=== PATIENT | female | born 1970 | race Caucasian/White ===

== ENCOUNTER 2017-12-08 13:51 | Day surgery (SDC) | payer MEDICAID, SELFPAY ==
[2017-12-08 14:06] VITALS: BP 143/78; PULSE 79; RESP 17; TEMP 36.6; O2SAT 96; BMI 31.3
[2017-12-08 15:23] VITALS: BP 160/91; PULSE 91; RESP 20; O2SAT 99
[2017-12-08 15:27] VITALS: BP 146/96; PULSE 79; RESP 20; O2SAT 95
--- NOTE | 2017-12-08 15:33 | HMH.PMPROC ---
- Procedure Date: 12/08/17 Time: 15:33 Anesthesiologist:: Robert Boyce MD Complications:: None Pre-procedure Diagnosis:: Degenerative disc disease of lumbar spine lumbar radiculopathy symptoms. Degenerative disc disease of cervical spine with cervical postlaminectomy syndrome and cervical radiculopathy symptoms. Post-procedure Diagnosis:: Same Indications for Procedure:: This patient is a pleasant 46-year-old white female who we have been treating for neck pain and low back pain with radiculopathy symptoms. She currently is an intrathecal hydromorphone pain pump currently going at 0.15 mg per day. Her low back is doing very well. She is still having some neck pain with cervical radicular symptoms. We have talked to her about possible spinal cord stimulation to help with her neck pain. She has not got relief of her cervical radicular symptoms with pump increases. We will refill her pump and continue her at 0.15 mg per day and give her information on spinal cord stimulation. Procedure Details:: Informed consent was obtained and the risks and benefits of the procedure was explained to the patient. The patient was taken to the procedure room. The pump was interrogated. The area over the pump was prepped using ChloraPrep. The pump was accessed with a 22-gauge needle. Approximately 6 mL's of the intrathecal solution was withdrawn and discarded. The pump was then refilled with 20 mL's of intrathecal Dilaudid 2 mg/mL. The pump was interrogated and the infusion was continued at 0.2 mg per day. The patient tolerated the procedure well with no complication. Plan and Disposition:: We will follow-up with her in 2 weeks. We will give her information on a [employer] spinal cord stimulator system. I have talked her about the risks and benefits and answered all questions. I do believe that she would benefit from spinal cord stimulator trial to help with her neck pain and cervical radicular symptoms. She is exhausted all options including surgery, physical therapy, injections and increases in her pump.
[2017-12-08 15:38] VITALS: BP 145/92; PULSE 75; RESP 16; TEMP 36.7; O2SAT 99
[2017-12-08 21:09] LABS: Amphetamine/Metha Screen,Urine Negative ng/mL (<1000); Barbiturates Screen,Urine Negative ng/mL (<200); Benzodiazepines Screen,Urine Negative ng/mL (200); Cannabinoid Screen,Urine Negative ng/mL (<50); Cocaine Screen,Urine Negative ng/g (<300); Methadone Screen,Urine Negative ng/mL (<300); Opiate Screen,Urine Negative ng/mL (<300); Phencyclidine Screen,Urine Negative ng/mL (<25)
[2017-12-24 10:33] LABS: Opiates Negative (Cutoff=100)
== END 2017-12-08 15:39 | disposition home or self-care (01) ==
LOC: SC.PAINP 13:52
PROVIDERS: Family Provider Family Medicine; PCP Family Medicine; Visit Provider Nurse Anesthetist, Certified Registered
DX: M51.16 Intervertebral disc disorders with radiculopathy, lumbar region (principal); M50.10 Cervical disc disorder with radiculopathy, unspecified cervical region; M96.1 Postlaminectomy syndrome, not elsewhere classified
CPT/HCPCS: 62370; 80305; 80361; G0480

== ENCOUNTER 2018-02-02 11:36 | Day surgery (SDC) | payer MEDICAID, SELFPAY ==
[2018-01-03 15:58] VITALS: BMI 33.0
[2018-02-02 12:14] VITALS: BP 119/68; PULSE 77; RESP 18; TEMP 37.3; O2SAT 94
[2018-02-02 12:44] LABS: Basophils % 0.5 % (0.1-2.0); Eosinophils # 0.2 K/mm3 (0.0-0.4); Hematocrit 43.8 % (37.0-47.0); Hemoglobin 14.3 g/dL (12.2-16.2); Lymphocytes # 2.3 K/mm3 (0.7-4.5); Mean Corpuscular HGB Conc 32.7 g/dL (31.8-35.4); Mean Corpuscular Hemoglobin 29.7 pg (27.0-31.2); Mean Corpuscular Volume 90.8 fl (81-99); Mean Platelet Volume 9.4 fl (7.4-10.4); Monocytes # 0.3 K/mm3 (0.1-1.0); Monocytes % 5.7 % (1.7-9.3); Neutrophils % 50.8 % (37.0-80.0); Platelet Count 141 K/mm3 (142-424); Red Blood Count 4.83 M/mm3 (4.20-5.40); Red Cell Distribution Width 13.3 % (11.5-17.5); Urine Pregnancy, HCG Qual. Negative (Negative); White Blood Count 5.8 K/mm3 (4.8-10.8)
--- NOTE | 2018-02-02 13:00 | P.PN_ITS ---
[facility] Anesthesia Checklist - Patient Identification Patient Identification: Arm Band, Verbal (Name & ) - Structural Data Admitted From: Home Planned Operative Procedure/s: neuro stimulator Consent for Planned Operative Procedure(s) Verified: Yes Verified Documents: Surgical Consent - NPO Status Verified Time NPO: 00:00 - Chart Verification Results Verified: CBC, BMP - Additional verifications Patient : No Anesthesia Reactions: No Hx Blood Transfusions: No Blood Transfusion Reaction: No Cephalosporin Allergy: No Previous Colonoscopy: No - Cardiovascular Assessment Heart Sounds: S1 & S2 Pulse Strength: Baseline Pulse Rhythm: Regular Peripheral Edema: No - Airway Assessment C-Spine Mobility Assessed: Yes TMJ Mobility Assessed: Yes Dentition: Good Dentition - Neurological Assessment Level of Consciousness: Awake, Alert, Appropriate Hx Seizures: No Numbness or tingling in extremities: No - Anesthesia Plan Anesthesia Risk discussed: Yes Anesthesia Plan: Verified ASA Class: II Anesthesia Type: MAC [facility] Anesthesia HX I have reviewed the patient's past medical history: Yes Medical History: Reports:: Hypertension Denies:: Cancer, Diabetes Mellitus Type 1, Diabetes Mellitus Type 2, MRSA, Seizures Other Medical History: Denies: Blood Transfusion Reaction Other Surgeries: Yes: Other (brain, cervical spinal, pain pump) Amputation: No Fractures: No *Family Hx:: Cancer, Diabetes, Heart Attack, Hypertension, Thyroid Disorder
[2018-02-02 13:13] LABS: Anion Gap 14.7 mEq/L (5-15); Blood Urea Nitrogen 9 mg/dL (7-18); Carbon Dioxide 25 mmol/L (21.0-32.0); Chloride 104 mmol/L (98-107); Potassium 3.7 mmoL/L (3.5-5.1); Sodium 140 mmol/L (136-145)
[2018-02-02 13:14] LABS: Creatinine Clearance Estimated 131 mL/min (0-300); Creatinine,Serum 0.76 mg/dL (0.55-1.02); Estimated Glomerular Filt Rate 81 ml/min (>60); GFR (African American) 98 ML/MIN (>60); Glucose 93 mg/dL (74-106)
--- NOTE | 2018-02-02 13:31 | SUR.PREOP ---
Addendum entered by Samuel Kelly RN 02/02/18 13:45: Pt states feeling Much Better s/p Benadryl administration. Denies itching, decreased redness noted. Vancomycin restarted @ 50cc/hr Original Note: Pt reports itching & not feeling well . Redness noted to chest & forehead. Denies shortness of breath. Vancomycin infusion stopped, call placed to Crystal Mckeon CRNA. Order obtained to give Benadryl 25iv and restart Vancomycin infusion at slower rate.
[2018-02-02 15:59] VITALS: BP 141/77; PULSE 69; RESP 20; TEMP 37.1; O2SAT 100
--- NOTE | 2018-02-02 16:09 | HMH.OPNOTE ---
Date of procedure: 02/02/18 Pre-op Diagnosis:: Degenerative disc disease of cervical spine with cervical radiculopathy symptoms and cervical postlaminectomy syndrome with previous ACDF of C4-5 and C5-6 Post-op Diagnosis:: Same Procedure performed:: Spinal cord stimulator trial placement with 2 cervical epidural leads Surgeon:: Robert Boyce MD TELEMARKETING SALES REPRESENTATIVE:: Reji Mello Anesthesia: MAC Estimated blood loss (mL): 0 Clinical Note:: This patient is a pleasant 47-year-old white female who we have been treating for neck pain and low back pain with radiculopathy symptoms. She currently has an intrathecal hydromorphone pain pump which is helping her low back pain significantly. She still has some neck pain with cervical radiculopathy symptoms. We will do a cervical spinal cord stimulator trial to see if this will help with her neck pain and radicular pain symptoms. Operative findings:: None Operative note:: Informed consent was obtained and the risk and benefits of the procedure was explained to the patient. Patient was taken to the procedure room. Patient was placed prone on the procedure table. Patient was prepped and draped in sterile fashion. C-arm fluoroscopy was used to view the lumbar spine. The skin and subcutaneous tissues were anesthetized using lidocaine. A 17-gauge epidural needle was inserted and advanced into the L2-L3 interspace. After confirmation of needle placement in the epidural space stimulating lead was inserted and advanced with some difficulty to the C6 vertebral body. The superior aspect of the lead was not able to advance further than the C6 vertebral body. A second needle was then placed into the L1-L2 interspace and advanced using fluoroscopic guidance and with loss resistance to air into the epidural space. After confirmation of needle placement in the epidural space stimulating lead was inserted and advanced with some difficulty to the C6 vertebral body again. The superior aspect of the lead again would not advance further than the C6 vertebral body. The stylet and needles were withdrawn. The leads were secured in place and the patient was taken to recovery for programming with the [employer] fulfillment representative. Patient tolerated the procedure well with no complications. We will follow-up with this patient on Wednesday for reprogramming. We will discharge this patient home this will be a one-week trial. Condition: stable Disposition: PACU (Follow-up in 1 week) Complications:: None
--- NOTE | 2018-02-02 16:13 | P.OP_ITS ---
Date of procedure: 02/02/18 Pre-op Diagnosis:: Degenerative disc disease of cervical spine with cervical radiculopathy symptoms and cervical postlaminectomy syndrome with previous ACDF of C4-5 and C5 -6 Post-op Diagnosis:: Same Procedure performed:: Spinal cord stimulator trial placement with 2 cervical epidural leads Surgeon:: Robert Boyce MD GRAIN SHIPPER:: Reji Mello Anesthesia: MAC Estimated blood loss (mL): 0 Clinical Note:: This patient is a pleasant 47-year-old white female who we have been treating for neck pain and low back pain with radiculopathy symptoms. She currently has an intrathecal hydromorphone pain pump which is helping her low back pain significantly. She still has some neck pain with cervical radiculopathy symptoms. We will do a cervical spinal cord stimulator trial to see if this will help with her neck pain and radicular pain symptoms. Operative findings:: None Operative note:: Informed consent was obtained and the risk and benefits of the procedure was explained to the patient. Patient was taken to the procedure room. Patient was placed prone on the procedure table. Patient was prepped and draped in sterile fashion. C-arm fluoroscopy was used to view the lumbar spine. The skin and subcutaneous tissues were anesthetized using lidocaine. A 17-gauge epidural needle was inserted and advanced into the L2-L3 interspace. After confirmation of needle placement in the epidural space stimulating lead was inserted and advanced with some difficulty to the C6 vertebral body. The superior aspect of the lead was not able to advance further than the C6 vertebral body. A second needle was then placed into the L1-L2 interspace and advanced using fluoroscopic guidance and with loss resistance to air into the epidural space. After confirmation of needle placement in the epidural space stimulating lead was inserted and advanced with some difficulty to the C6 vertebral body again. The superior aspect of the lead again would not advance further than the C6 vertebral body. The stylet and needles were withdrawn. The leads were secured in place and the patient was taken to recovery for programming with the [employer] truck sales representative. Patient tolerated the procedure well with no complications. We will follow-up with this patient on Wednesday for reprogramming. We will discharge this patient home this will be a one-week trial. Condition: stable Disposition: PACU (Follow-up in 1 week) Complications:: None
[2018-02-02 16:15] VITALS: BP 135/79; PULSE 79; RESP 18; O2SAT 100
[2018-02-02 16:30] VITALS: BP 137/74; PULSE 74; RESP 20; O2SAT 100
[2018-02-02 17:00] VITALS: BP 117/69; PULSE 78; RESP 18; O2SAT 100
[2018-02-02 17:40] VITALS: BP 134/89; PULSE 81; RESP 20; TEMP 37; O2SAT 100
== END 2018-02-02 17:40 | disposition home or self-care (01) ==
LOC: OR 11:37
PROVIDERS: Family Provider Family Medicine; PCP Family Medicine; Visit Provider Anesthesiology
DX: M50.10 Cervical disc disorder with radiculopathy, unspecified cervical region (principal); M96.1 Postlaminectomy syndrome, not elsewhere classified
CPT/HCPCS: 63650; 80048; 81025; 85025; C1897; J3370

== ENCOUNTER → 2018-02-02 14:40 | Outpatient (POV) | payer MEDICAID, SELFPAY ==
--- NOTE | 2018-02-02 14:54 | HMH.PMCON ---
Assessment and Plan - Assessment and plan all Dx Assessment and Plan for all problems:: Impression-postlaminectomy syndrome of the cervical spine with radiculopathy, degenerative disc disease lumbar spine with radiculopathy Plan-epidural pain stimulator trial today. Consider placement of a dural pain stimulator system if successful HPI - Data of Consult Patient: known to practice within the last 3 years Consult date: 02/02/18 Requesting Physician: Wilfredo Aguillon MD Primary Care Provider: Gayla Galan MD Family Provider: Gayla Galan MD - Consult Narrative Reason for consult: Degenerative disc disease lumbar and cervical spine with radiculopathy History of present illness: Ms. Rosales is a 47 year old female who has degenerative disc disease no spine with radiculopathy. She also has degenerative disc disease of the cervical spine with cervical postlaminectomy syndrome and radiculopathy. She currently has hydromorphone pain pump in her low back is doing very well. She is having neck issues she is being considered for a spinal cord stimulator to help with her neck pain. CC: Wilfredo Aguillon MD [facility] History Medical History: Reports:: Hypertension Denies:: Cancer, Diabetes Mellitus Type 1, Diabetes Mellitus Type 2, MRSA, Seizures Other Medical History: Denies: Blood Transfusion Reaction Comment: Illnesses-hypertension, hypothyroidism, migraine headaches, Arnold-Chiari malformation Other Surgeries: Yes: Other (brain, cervical spinal, pain pump) Amputation: No Fractures: No Comment: Operations-laparoscopic cholecystectomy, hysterectomy, cervical laminectomy, tubal ligation, suboccipital decompression the medulla, hernia repair, , myomectomy - *Social History Smoking Status: Never smoker Alcohol Intake: never Occupational Status: unemployed *Family Hx:: Cancer, Diabetes, Heart Attack, Hypertension, Thyroid Disorder Comment: Family history of heart disease diabetes and cancer Review of Systems - Review of Systems As per history and physical Meds Home Medications Medication Instructions Recorded Confirmed Type Levothyroxine Sodium [Synthroid 125 mcg PO DAILY 01/03/18 02/02/18 History 125mcg (0.125mg) tablet] Nebivolol HCl [Bystolic] 20 mg PO NEEDED PRN 01/03/18 02/02/18 History Promethazine HCl [Phenergan 25mg 25 mg PO NEEDED PRN 01/03/18 02/02/18 History tab] cloNIDine HCl [cloNIDine 0.1mg 0.1 mg PO QID 01/03/18 02/02/18 History Tablet] Allergies Allergy/AdvReac Type Severity Reaction Status Date / Time niacin [NIACIN] Allergy Severe S-DIFF. Verified 02/01/18 12:28 BREATHING Penicillins [PENICILLINS] Allergy Intermediate I-HIVES Verified 02/01/18 12:28 ondansetron Allergy Mild ABD PAIN Verified 02/01/18 12:28 [From ZOFRAN ( HYDROCHLORIDE)] Objective Comments: Healthy white female in no distress - *Routine Respiratory Exam Comments: Clear - *Routine Cardiovascular Exam Comments: Regular rate and rhythm - *Routine Abdominal Exam Comments: Soft and nontender
--- NOTE | 2018-02-02 14:57 | P.CONS_ITS ---
Assessment and Plan - Assessment and plan all Dx Assessment and Plan for all problems:: Impression-postlaminectomy syndrome of the cervical spine with radiculopathy, degenerative disc disease lumbar spine with radiculopathy Plan-epidural pain stimulator trial today. Consider placement of a dural pain stimulator system if successful HPI - Data of Consult Patient: known to practice within the last 3 years Consult date: 02/02/18 Requesting Physician: Wilfredo Aguillon MD Primary Care Provider: Gayla Galan MD Family Provider: Gayla Galan MD - Consult Narrative Reason for consult: Degenerative disc disease lumbar and cervical spine with radiculopathy History of present illness: Ms. Rosales is a 47 year old female who has degenerative disc disease no spine with radiculopathy. She also has degenerative disc disease of the cervical spine with cervical postlaminectomy syndrome and radiculopathy. She currently has hydromorphone pain pump in her low back is doing very well. She is having neck issues she is being considered for a spinal cord stimulator to help with her neck pain. CC: Wilfredo Aguillon MD [facility] History Medical History: Reports:: Hypertension Denies:: Cancer, Diabetes Mellitus Type 1, Diabetes Mellitus Type 2, MRSA, Seizures Other Medical History: Denies: Blood Transfusion Reaction Comment: Illnesses-hypertension, hypothyroidism, migraine headaches, Arnold- Chiari malformation Other Surgeries: Yes: Other (brain, cervical spinal, pain pump) Amputation: No Fractures: No Comment: Operations-laparoscopic cholecystectomy, hysterectomy, cervical laminectomy, tubal ligation, suboccipital decompression the medulla, hernia repair, , myomectomy - *Social History Smoking Status: Never smoker Alcohol Intake: never Occupational Status: unemployed *Family Hx:: Cancer, Diabetes, Heart Attack, Hypertension, Thyroid Disorder Comment: Family history of heart disease diabetes and cancer Review of Systems - Review of Systems As per history and physical Meds Home Medications Medication Instructions Recorded Confirmed Type Levothyroxine Sodium [Synthroid 125 mcg PO DAILY 01/03/18 02/02/18 History 125mcg (0.125mg) tablet] Nebivolol HCl [Bystolic] 20 mg PO NEEDED PRN 01/03/18 02/02/18 History Promethazine HCl [Phenergan 25mg 25 mg PO NEEDED PRN 01/03/18 02/02/18 History tab] cloNIDine HCl [cloNIDine 0.1mg 0.1 mg PO QID 01/03/18 02/02/18 History Tablet] Allergies Allergy/AdvReac Type Severity Reaction Status Date / Time niacin [NIACIN] Allergy Severe S-DIFF. Verified 02/01/18 12:28 BREATHING Penicillins [PENICILLINS] Allergy Intermediate I-HIVES Verified 02/01/18 12:28 ondansetron Allergy Mild ABD PAIN Verified 02/01/18 12:28 [From ZOFRAN ( HYDROCHLORIDE)] Objective Comments: Healthy white female in no distress - *Routine Respiratory Exam Comments: Clear - *Routine Cardiovascular Exam Comments: Regular rate and rhythm - *Routine Abdominal Exam Comments: Soft and nontender
--- NOTE | 2018-02-03 13:55 | PC.PHONENOTE ---
pt called in to office, states she has taken one dose of her post-op abx, Bactrim, and feels like she is having a reaction Symptoms reported are chest lightness, redness in her face. She said remembers something about being allergic to it when referring to the Bactrim. [place] pt clearing her voice frequently while on the phone. Instructed pt that she is to stop taking the antibiotics and she needs to see medical treatment for her symptms. pt stated she would take 2 benadryl and see how she felt. Again, instructed pt to seek medical treatment for her symptoms. she stated she would be seen if she didn't feel better after the benadryl. Discussed potential adverse effects, pt verbalized understanding, but states she will take benadryl first. Dr Boyce notified of pt symptoms and complaints.
--- NOTE | 2018-02-03 14:11 | PC.PHONENOTE ---
called in Rx for Cipro 500mg BID x5 days per dr alejandro's order.
== END ==
PROVIDERS: Family Provider Family Medicine; PCP Family Medicine; Visit Provider Surgery
DX: M54.12 Radiculopathy, cervical region (principal); M54.16 Radiculopathy, lumbar region
CPT/HCPCS: 99212

== ENCOUNTER 2018-02-04 13:39 | Emergency (ER) | payer MEDICAID, SELFPAY ==
[2018-02-04 13:47] VITALS: BP 141/85; PULSE 69; RESP 18; TEMP 37; O2SAT 96; BMI 33.0
--- NOTE | 2018-02-04 14:25 | HMH.EDSOB ---
ED Disposition Clinical Impression: Dyspnea Disposition: Home, Self-Care Condition on Discharge: Good Prescriptions: Albuterol Sulfate [Proair Hfa 90mcg/puff Inh] 2 puffs IH Q4HP PRN #1 inh PRN Reason: Shortness Of Breath Or Wheezing Referrals: Gayla Galan MD [Primary Care Provider] - - Critical Care Critical Care Time: No Attestation: On 02/04/18, the high probability of a clinically significant, sudden or life threatening deterioration of the following system(s) required my full and direct attention, intervention and personal management. The time I documented below is in addition to time spent performing reported procedures but includes the following listed in this critical care notation. Medical Decision Making - George Inquiry Pt receiving controlled substance: No George was queried for this patient: No Risks and benefits of using a controlled substance: were discussed with pt by me Vital Signs: 02/04/18 13:47 Temperature 98.6 F Temperature Source Oral Pulse Rate [Left Brachial] 69 Respiratory Rate 18 Blood Pressure [Left Arm] 141/85 Blood Pressure Mean [Left Arm] 103 Blood Pressure Source [Left Arm] Automatic Cuff Blood Pressure Position [Left Arm] Sitting 02 Sat by Pulse Oximetry 96 Oxygen Delivery Method Room Air - Lab Data Lab Results 02/04/18 13:50: Urine Color Yellow, Urine Appearance Clear, Urine pH 7.5, Ur Specific [place] 1.015, Urine Protein Negative, Urine Glucose (UA) Negative, Urine Ketones Negative, Urine Blood Negative, Urine Nitrate Negative, Urine Bilirubin Negative, Urine Urobilinogen 0.2, Ur Leukocyte Esterase Negative, Urine RBC Occasional, Urine WBC Occasional, Ur Squamous Epith Cells 10-20, Urine Bacteria 1+ 02/04/18 14:55: WBC 6.6, RBC 4.97, Hgb 15.0, Hct 45.5, MCV 91.5, MCH 30.2, MCHC 33.0, RDW 13.2, Plt Count 165, MPV 9.8, Neut % (Auto) 57.8, Lymph % (Auto) 31.5, Ransom % (Auto) 5.8, Eos % (Auto) 4.2, Baso % (Auto) 0.7, Neut # (Auto) 3.8, Lymph # (Auto) 2.1, Ransom # (Auto) 0.4, Eos # (Auto) 0.3, Baso # (Auto) 0.1 02/04/18 14:55: D-Dimer 240 02/04/18 14:55: Sodium 141, Potassium 4.2, Chloride 103, Carbon Dioxide 31 D, Anion Gap 11.2, BUN 10, Creatinine 0.86, Estimated Creat Clear 116, Estimated GFR 70, Est GFR ( Amer) 85, Glucose 90, Calcium 8.9, Total Bilirubin 0.3, AST 19, ALT 29, Alkaline Phosphatase 64, Total Creatine Kinase 75, CK-MB (CK-2) 0.9, CK-MB (CK-2) Rel Index 1.2, Troponin I < 0.02, Total Protein 7.3, Albumin 3.7, Globulin 3.6 H, Albumin/Globulin Ratio 1.0 L 02/04/18 14:55: Lactic Acid 0.7 Result diagrams: 02/04/18 14:55 02/04/18 14:55 Orders (Tests/Meds): ED MEDICATIONS Discontinued Medications Generic Name Dose Route Start Last Admin Trade Name Jonna PRN Reason Stop Dose Admin Promethazine HCl 12.5 mg 02/04/18 16:15 02/04/18 16:25 Phenergan 25mg/Ml 1ml Vial IV 02/04/18 16:16 12.5 mg ONCE ONE Administration Sodium Chloride 25 ml 02/04/18 16:15 02/04/18 16:26 Sod Chlor 0.9% 25ml Bag IV 02/04/18 16:16 25 ml ONCE ONE Administration ORDERS Category Date Time Status Blood Culture Stat Micro 02/04/18 14:55 Received ECG Request by /Eleuterio Stat Y 02/04/18 14:37 Stop Req - Radiology Data #1 Image(s): Chest Image Reviewed: Yes I reviewed the patient's radiology image Preliminary Findings: Normal/NAD Resp/SOB HPI - General Chief Complaint: Shortness of Breath/Dyspnea Stated Complaint: fever soa dizzy surgery on Time Seen by Provider: 02/04/18 14:00 Mode of Arrival: Wheelchair Source of Information: Patient Limitations: No Limitations Description of Symptoms (Recalled from ER Triage Doc. by RN): shortness of breath since procedure yesterday. feels like going to pass out. pt states generalized edema - History of Present Illness MD Complaint: shortness of breath Onset (ago): day(s) (1) Severity: moderate Consistency/Duration: intermittent Relieving factors: nothing Exacerbating factors
--- NOTE | 2018-02-04 14:37 | XR_ITS ---
XR chest 2V COMPARISON: PA and lateral chest 08/04/2016 HISTORY: Shortness of breath TECHNIQUE: The a and lateral chest FINDINGS: The lung kelly are well expanded and appear clear of infiltrate. There is a stable partially calcified granuloma left mid chest and a calcified hilar nodes bilaterally. Cardiac size is normal and is no pleural fluid. There is a neurostimulator electrode in the upper thoracic spinal canal. There is been previous anterior cervical fusion lower cervical spine. IMPRESSION: Nonacute chest findings
[2018-02-04 15:07] LABS: Basophils # 0.1 K/mm3 (0-0.2); Basophils % 0.7 % (0.1-2.0); Eosinophils # 0.3 K/mm3 (0.0-0.4); Eosinophils % 4.2 % (0.1-12.0); Hematocrit 45.5 % (37.0-47.0); Lymphocytes # 2.1 K/mm3 (0.7-4.5); Lymphocytes % 31.5 K/mm3 (10-50); Mean Corpuscular Hemoglobin 30.2 pg (27.0-31.2); Mean Corpuscular Volume 91.5 fl (81-99); Mean Platelet Volume 9.8 fl (7.4-10.4); Monocytes # 0.4 K/mm3 (0.1-1.0); Monocytes % 5.8 % (1.7-9.3); Neutrophils # 3.8 K/mm3 (1.8-7.8); Neutrophils % 57.8 % (37.0-80.0); Platelet Count 165 K/mm3 (142-424); Red Blood Count 4.97 M/mm3 (4.20-5.40); Red Cell Distribution Width 13.2 % (11.5-17.5); White Blood Count 6.6 K/mm3 (4.8-10.8)
[2018-02-04 15:24] LABS: Lactic Acid 0.7 mmol/L (0.4-2.0)
[2018-02-04 15:28] LABS: D-Dimer 240 (0-400)
[2018-02-04 15:34] LABS: Alanine Aminotransferase 29 U/L (12-78); Albumin Level 3.7 gm/dL (3.4-5.0); Alkaline Phosphatase 64 U/L (46-116); Anion Gap 11.2 mEq/L (5-15); Aspartate Amino Transferase 19 U/L (15-37); Bilirubin,Total 0.3 mg/dL (0.2-1.0); Blood Urea Nitrogen 10 mg/dL (7-18); CKMB Relative Index 1.2 U/L (0-4.0); Calcium 8.9 mg/dL (8.5-10.1); Carbon Dioxide 31 mmol/L (21.0-32.0); Chloride 103 mmol/L (98-107); Creatine Kinase 75 U/L (26-192); Creatine Kinase MB 0.9 mg/ml (0.0-3.6); Creatinine Clearance Estimated 116 mL/min (0-300); Creatinine,Serum 0.86 mg/dL (0.55-1.02); Estimated Glomerular Filt Rate 70 ml/min (>60); GFR (African American) 85 ML/MIN (>60); Globulin 3.6 gm/dl (1.3-3.2); Glucose 90 mg/dL (74-106); Potassium 4.2 mmoL/L (3.5-5.1); Sodium 141 mmol/L (136-145); Total Protein,Serum 7.3 gm/dL (6.4-8.2); Troponin I < 0.02 ng/ml (0.00-0.06)
[2018-02-04 16:28] LABS: Appearance,Urine CLEAR (Clear); Bilirubin,Urine Negative (Negative); Blood, Urine Negative (Negative); Color,Urine YELLOW (Yellow); Glucose,Urine (UA) Negative (Negative); Ketones,Urine Negative (Negative); Leukocyte Esterase,Urine Negative (Negative); Microscopic, Urine URINE MICROSCOPIC (MICROSCOPIC); Nitrate,Urine Negative (Negative); PH,Urine 7.5 (5.0-8.5); Protein,Urine Negative (Negative); Specific Gravity, Urine 1.015 (1.005-1.030); Urobilinogen,Urine 0.2 EU/dl (0.2)
[2018-02-04 16:55] LABS: Bacteria,Urine 1+ /lpf; RBC,Urine Occasional #/hpf (0-3); WBC,Urine Occasional #/hpf (0-3)
[2018-02-04 19:14] VITALS: BP 136/84; PULSE 79; RESP 16; TEMP 36.8; O2SAT 97
== END 2018-02-04 19:16 | disposition home or self-care (01) ==
PROVIDERS: Emergency Provider Family Medicine; Family Provider Family Medicine; PCP Family Medicine
DX: R06.09 Other forms of dyspnea (principal); R42 Dizziness and giddiness; I10 Essential (primary) hypertension; Z88.0 Allergy status to penicillin; Z88.2 Allergy status to sulfonamides
CPT/HCPCS: 36415; 71046; 80053; 81001; 82550; 82553; 83605; 84484; 85025; 85378; 87040; 93005; 96374; 96375; 99284

== ENCOUNTER → 2018-02-07 15:32 | Outpatient (POV) | payer MEDICAID, SELFPAY ==
[2018-02-07 15:34] VITALS: BP 170/95; PULSE 77; RESP 20; O2SAT 99; BMI 32.3
--- NOTE | 2018-02-07 16:02 | HMH.PAINSOAP ---
[facility] Pain Management SOAP Note Subjective:: This patient is a pleasant 47-year-old white female who we are treating for neck pain and low back pain with radicular symptoms. She has an intrathecal hydromorphone pain pump which is helping her low back significantly. She still has neck pain with cervical radicular symptoms. We did do a cervical spinal cord stimulator trial with 2 cervical epidural leads however I was unable to get these leads past her hardware. We are unable to advance further than the C6 vertebral body. Patient did get some relief. This is a successful stim trial. Wants to proceed with permanent placement however given her hardware and previous cervical spine surgery I believe she needs a cervical paddle lead. Objective:: Alert and oriented ?3 in no acute distress. Patient does have a normal gait. Motor strength of the upper and lower extremities is 5/5. There is no gross sensory deficit. Leads were removed intact and without complication. No signs of infection. Assessment:: Postlaminectomy syndrome of the cervical spine with previous anterior cervical fusion with cervical radiculopathy symptoms. Degenerative disease of lumbar spine with lumbar radiculopathy symptoms. Plan:: We will seek approval and plan on permanent placement of spinal cord stimulator with a paddle lead placed at C3-C4-C5. We will see if flexion and clinic takes her insurance if not then we may pursue placement of paddle lead by Dr. Cintron.
== END ==
PROVIDERS: Family Provider Family Medicine; PCP Family Medicine; Visit Provider Anesthesiology
DX: M54.12 Radiculopathy, cervical region (principal); M54.16 Radiculopathy, lumbar region
CPT/HCPCS: 99212

== ENCOUNTER → 2018-02-14 10:36 | Outpatient (POV) | payer MEDICAID, SELFPAY ==
[2018-02-14 10:54] VITALS: BP 143/88; PULSE 77; RESP 18; TEMP 36.9; O2SAT 98; BMI 33.0
--- NOTE | 2018-02-14 11:54 | HMH.PMPROC ---
- Procedure Date: 02/14/18 Time: 11:10 Anesthesiologist:: Ninoska Castillo APRN Complications:: None Pre-procedure Diagnosis:: Postlaminectomy syndrome of the cervical spine with previous anterior cervical fusion with cervical radiculopathy symptoms. Degenerative disc disease of the lumbar spine with lumbar radiculopathy symptoms, myofascial pain syndrome Post-procedure Diagnosis:: Same Indications for Procedure:: Patient is a very pleasant 47-year-old white female who presents today for a follow-up. Patient has recently had a cord stimulator trial and did very well with it. Patient is seen Dr. Cintron and he has referred her onto the [facility] for potential implant of cervical neurostimulator. Patient states she has had a slight increase in pain. Patient has had a fever and was not feeling well however all of that has resolved. Patient is having some increased myofascial pain to the cervical paraspinous and trapezius bilaterally. Patient describes her pain is achy and constant. Patient has intrathecal pain pump with Dilaudid going at 0.2 mg a day. Patient states she is having no side effects to this and states that it controls the majority of her low back pain. Patient would like an adjustment today. ROS General: no recent weight change, no fever, no sleep disturbances Respiratory: no cough, no shortness of air, no recurring pulmonary infections Cardiovascular/Peripheral Vascular: No chest pain, No palpitations, no edema, no shortness of breath. Gastrointestinal: no incontinence, normal bowel movements reported Genitourinary: no incontinence Musculoskeletal: Neck pain, back pain, myofascial pain Psychiatric: normal mood/ affect Neurological: [denies weakness in extremities], [denies balance issues] Physical Exam General: Alert and oriented x3, no acute distress, pleasant and cooperative, [on room air] Lungs: Resps E/U, Symmetrical chest expansion, Eyes: PERRL Musculoskeletal: Flexion and extension of cervical and lumbar spine somewhat guarded secondary to pain, deep tendon reflexes normal, strength in upper and lower extremities [5/5], slightly antalgic gait noted, palpable trigger points in the cervical paraspinous and trapezius muscles bilaterally Neurological: speech clear, penciller equal, no gross sensory deficits Procedure Details:: Informed consent was obtained and the risk and benefits of the procedure were explained to the patient. The patient was taken to the procedure room where noninvasive monitoring was placed including noninvasive blood pressure cuff and noninvasive pulse ox her. Patient's pump was interrogated and her basal rate was changed from 0.2 mg of Dilaudid a day 2.25 mg of Dilaudid a day. Her PTC will remain the same. Patient tolerated the procedure well. Plan and Disposition:: We will schedule trigger point injections bilaterally of the cervical paraspinous and trapezius muscles. Patient has done well with these in the past. Patient will be going to [facility] in regards to her neurostimulator implant. Patient is to keep us up-to-date about this. Patient was instructed to call us if she is having any side effects from her adjustment. We will follow-up with this patient after her trigger point injections. This note was dictated using voice recognition software and may contain errors or omissions
--- NOTE | 2018-02-14 11:57 | P.PCN_ITS ---
- Procedure Date: 02/14/18 Time: 11:10 Anesthesiologist:: Ninoska Castillo APRN Complications:: None Pre-procedure Diagnosis:: Postlaminectomy syndrome of the cervical spine with previous anterior cervical fusion with cervical radiculopathy symptoms. Degenerative disc disease of the lumbar spine with lumbar radiculopathy symptoms, myofascial pain syndrome Post-procedure Diagnosis:: Same Indications for Procedure:: Patient is a very pleasant 47-year-old white female who presents today for a follow-up. Patient has recently had a cord stimulator trial and did very well with it. Patient is seen Dr. Cintron and he has referred her onto the [facility] for potential implant of cervical neurostimulator. Patient states she has had a slight increase in pain. Patient has had a fever and was not feeling well however all of that has resolved. Patient is having some increased myofascial pain to the cervical paraspinous and trapezius bilaterally. Patient describes her pain is achy and constant. Patient has intrathecal pain pump with Dilaudid going at 0.2 mg a day. Patient states she is having no side effects to this and states that it controls the majority of her low back pain. Patient would like an adjustment today. ROS General: no recent weight change, no fever, no sleep disturbances Respiratory: no cough, no shortness of air, no recurring pulmonary infections Cardiovascular/Peripheral Vascular: No chest pain, No palpitations, no edema, no shortness of breath. Gastrointestinal: no incontinence, normal bowel movements reported Genitourinary: no incontinence Musculoskeletal: Neck pain, back pain, myofascial pain Psychiatric: normal mood/ affect Neurological: [denies weakness in extremities], [denies balance issues] Physical Exam General: Alert and oriented x3, no acute distress, pleasant and cooperative, [ on room air] Lungs: Resps E/U, Symmetrical chest expansion, Eyes: PERRL Musculoskeletal: Flexion and extension of cervical and lumbar spine somewhat guarded secondary to pain, deep tendon reflexes normal, strength in upper and lower extremities [5/5], slightly antalgic gait noted, palpable trigger points in the cervical paraspinous and trapezius muscles bilaterally Neurological: speech clear, greenhouse specialist equal, no gross sensory deficits Procedure Details:: Informed consent was obtained and the risk and benefits of the procedure were explained to the patient. The patient was taken to the procedure room where noninvasive monitoring was placed including noninvasive blood pressure cuff and noninvasive pulse ox her. Patient's pump was interrogated and her basal rate was changed from 0.2 mg of Dilaudid a day 2.25 mg of Dilaudid a day. Her PTC will remain the same. Patient tolerated the procedure well. Plan and Disposition:: We will schedule trigger point injections bilaterally of the cervical paraspinous and trapezius muscles. Patient has done well with these in the past. Patient will be going to [facility] in regards to her neurostimulator implant. Patient is to keep us up-to-date about this. Patient was instructed to call us if she is having any side effects from her adjustment. We will follow-up with this patient after her trigger point injections. This note was dictated using voice recognition software and may contain errors or omissions
== END ==
PROVIDERS: Family Provider Family Medicine; PCP Family Medicine; Visit Provider Clinical Nurse Specialist Family Health
DX: M54.12 Radiculopathy, cervical region (principal); M54.16 Radiculopathy, lumbar region
CPT/HCPCS: 62370; 99212

== ENCOUNTER → 2018-02-23 13:55 | Outpatient (CLI) | payer MEDICAID, SELFPAY ==
--- NOTE | 2018-02-23 14:02 | MR_ITS ---
MR hip LT wo con Ordering Physician: Hans Burden Patient Age: 47 years: Female HISTORY: ITS.REASON: LEFT HIP PAIN Left hip pain Gluteal tear. Spasm left hip one year pain with moving leg in and out. Has pain pump, listed as, MRI safe TECHNIQUE: Multiplanar multisequence imaging 1.5 T MR COMPARISON :Previous CT abdomen pelvis January 2017 previous pelvic ultrasound September 2016 FINDINGS Prominent artifact from the pain pump overlying the right buttock. I would note that the pain medications were withdrawn from the pain pump by biomedical device phlebotomy services representative prior to the patient entering the MRI. The pain pump does show significant field distortion artifact right hemipelvis and most sever right buttock & posterior to the right hip. The hip joint itself appears well-maintained. The acetabular labrum intact. Upper normal joint fluid at the left hip Femoral head and neck with normal signal. No evidence of avascular necrosis. . No osseous lesions at hip Nor pelvis. Hip joint space fairly well maintained. No muscle tear evident. Upper normal joint fluid at left hip. The hamstring e attachment intact upon the ischium appears intact Ovarian cyst on left was seen on previous 2017 CT and one of them likely on 2016 ultrasound pelvis. Slight enlarged left ovary measuring at least 5 cm x 3 cm. Left ovary containing two cystic appearing areas. Largest measuring up to 3.2 cm cm and the other 2.5 cm cm cyst. Right ovary: 3.6 cm maximum length with likely small 10 x 12 mm cyst I would note that a fluid-filled bowel loop on MR could mimic this the cystic appearing areas towards adnexa but similar feature was also seen on CT from 2017 this I believe these are likely ovarian cyst.. I would recommend a pelvic ultrasound to correlate these features Otherwise at the pelvic basin there is a generous girth of uterus measuring over 7 cm transverse but this is similar to previous 2017 CT pelvis. Could be a underlying homogeneous uterine fibroid contributing to the generous girth of uterus.. Again consider pelvic ultrasound.. IMPRESSION: No muscle ligamentous nor tendon tear evident. Left hip joint space maintained. Left femoral head & neck normal signal. Only Scant fluid overlying greater trochanter. Conceivably could reflect a very very subtletrochanteric bursitis. Unimpressive but warrants correlation. Mildly enlarged left ovary measuring over 5 cm in length. Contains two cysts: 3.2 cm cm & 2.5 cm cyst. Generous girth of the uterus underlying fibroids likely. Consider follow-up pelvic ultrasound*. These are noted on previous studies MRI Artifact note: Prominent field distortion artifact due to pain pump at right buttock. Resulting artifact obscures right buttock and partially obscures right hip/right hemipelvis; and yields field distortion throughout the study
== END ==
PROVIDERS: Family Provider Family Medicine; PCP Family Medicine; Visit Provider Orthopaedic Surgery Adult Reconstructive Orthopaedic Surgery
DX: M25.552 Pain in left hip (principal)
CPT/HCPCS: 73721

== ENCOUNTER → 2018-03-14 09:30 | Outpatient (POV) | payer MEDICAID, SELFPAY ==
[2018-03-14 10:06] LABS: Basophils % 0.5 % (0.1-2.0); Eosinophils # 0.3 K/mm3 (0.0-0.4); Eosinophils % 3.7 % (0.1-12.0); Hematocrit 42.2 % (37.0-47.0); Hemoglobin 14.3 g/dL (12.2-16.2); Lymphocytes # 3.2 K/mm3 (0.7-4.5); Lymphocytes % 45.2 K/mm3 (10-50); Mean Corpuscular HGB Conc 33.9 g/dL (31.8-35.4); Mean Corpuscular Hemoglobin 30.9 pg (27.0-31.2); Mean Platelet Volume 8.7 fl (7.4-10.4); Monocytes # 0.3 K/mm3 (0.1-1.0); Monocytes % 4.3 % (1.7-9.3); Neutrophils # 3.2 K/mm3 (1.8-7.8); Neutrophils % 46.3 % (37.0-80.0); Platelet Count 181 K/mm3 (142-424); Red Blood Count 4.64 M/mm3 (4.20-5.40); Red Cell Distribution Width 13.3 % (11.5-17.5)
[2018-03-14 10:09] VITALS: BP 118/73; PULSE 71; RESP 20; TEMP 36.8; O2SAT 98; BMI 33.9
--- NOTE | 2018-03-14 10:26 | HMH.PAINSOAP ---
[facility] Pain Management SOAP Note Subjective:: She is a pleasant 47-year-old white female who presents today for follow-up after trigger point injections of cervical paraspinous and UDS muscles. Patient states she is doing well she reports 90% improvement. Patient states that this typically lasts 4-8 weeks for her. Patient would like to set up another round of injections in 4-8 weeks. I believe that this would be beneficial. Patient is going to be seeing Dr. Watt on Wednesday to determine if she can have her spinal cord stimulator placed cervically. Patient had a successful trial. Patient states she recently had a concussion due to hitting her head with her purse. Patient rates her pain a 4 out of 10 today. ROS General: no recent weight change, no fever, no sleep disturbances Respiratory: no cough, no shortness of air, no recurring pulmonary infections Cardiovascular/Peripheral Vascular: No chest pain, No palpitations, no edema, no shortness of breath. Gastrointestinal: no incontinence, normal bowel movements reported Genitourinary: no incontinence Musculoskeletal: Pain, back pain Psychiatric: normal mood/ affect Neurological: [denies weakness in extremities], [denies balance issues] Objective:: Physical Exam General: Alert and oriented x3, no acute distress, pleasant and cooperative, [on room air] Lungs: Resps E/U, Symmetrical chest expansion, Eyes: PERRL Musculoskeletal: Flexion and extension of vehicle and lumbar spine somewhat guarded secondary to pain, deep tendon reflexes normal, strength in upper and lower extremities [5/5], normal gait noted Neurological: speech clear, death claim examiner equal, no gross sensory deficits Assessment:: Fascial pain syndrome, post laminectomy syndrome of the cervical spine, degenerative disc disease of the lumbar spine. Plan:: Patient will let us know after her appointment with Dr. Watt if she is a candidate for neurostimulator implant. Patient does have intrathecal pain pump and is doing well with this in regards to her lower back. Patient denies any side effects. We will schedule trigger point injections in 6-8 weeks for this patient. Patient is currently doing 90% better with this pain. I will follow-up with this patient and her next pain pump refill or at her trigger point injections. This note was dictated using voice recognition software and may contain errors or omissions
--- NOTE | 2018-03-14 10:30 | P.CONS_ITS ---
[facility] Pain Management SOAP Note Subjective:: She is a pleasant 47-year-old white female who presents today for follow-up after trigger point injections of cervical paraspinous and UDS muscles. Patient states she is doing well she reports 90% improvement. Patient states that this typically lasts 4-8 weeks for her. Patient would like to set up another round of injections in 4-8 weeks. I believe that this would be beneficial. Patient is going to be seeing Dr. Watt on Wednesday to determine if she can have her spinal cord stimulator placed cervically. Patient had a successful trial. Patient states she recently had a concussion due to hitting her head with her purse. Patient rates her pain a 4 out of 10 today. ROS General: no recent weight change, no fever, no sleep disturbances Respiratory: no cough, no shortness of air, no recurring pulmonary infections Cardiovascular/Peripheral Vascular: No chest pain, No palpitations, no edema, no shortness of breath. Gastrointestinal: no incontinence, normal bowel movements reported Genitourinary: no incontinence Musculoskeletal: Pain, back pain Psychiatric: normal mood/ affect Neurological: [denies weakness in extremities], [denies balance issues] Objective:: Physical Exam General: Alert and oriented x3, no acute distress, pleasant and cooperative, [ on room air] Lungs: Resps E/U, Symmetrical chest expansion, Eyes: PERRL Musculoskeletal: Flexion and extension of vehicle and lumbar spine somewhat guarded secondary to pain, deep tendon reflexes normal, strength in upper and lower extremities [5/5], normal gait noted Neurological: speech clear, business development intern equal, no gross sensory deficits Assessment:: Fascial pain syndrome, post laminectomy syndrome of the cervical spine, degenerative disc disease of the lumbar spine. Plan:: Patient will let us know after her appointment with Dr. Watt if she is a candidate for neurostimulator implant. Patient does have intrathecal pain pump and is doing well with this in regards to her lower back. Patient denies any side effects. We will schedule trigger point injections in 6-8 weeks for this patient. Patient is currently doing 90% better with this pain. I will follow- up with this patient and her next pain pump refill or at her trigger point injections. This note was dictated using voice recognition software and may contain errors or omissions
[2018-03-14 12:19] LABS: Albumin Level 3.5 gm/dL (3.4-5.0); Albumin/Globulin Ratio 1.1 (1.1-1.8); Alkaline Phosphatase 72 U/L (46-116); Anion Gap 12.3 mEq/L (5-15); Bilirubin,Total 0.1 mg/dL (0.2-1.0); Blood Urea Nitrogen 11 mg/dL (7-18); Calcium 9.2 mg/dL (8.5-10.1); Carbon Dioxide 29 mmol/L (21.0-32.0); Chloride 103 mmol/L (98-107); Chol/HDL Ratio 7.2 (1-3.5); Cholesterol 217 mg/dL (140-200); Creatinine Clearance Estimated 153 mL/min (0-300); Creatinine,Serum 0.67 mg/dL (0.55-1.02); Estimated Glomerular Filt Rate 94 ml/min (>60); GFR (African American) 113 ML/MIN (>60); Globulin 3.3 gm/dl (1.3-3.2); HDL Cholesterol 30 mg/dL (29-89); Sodium 140 mmol/L (136-145); Total Protein,Serum 6.8 gm/dL (6.4-8.2)
[2018-03-14 12:21] LABS: Potassium 4.3 mmoL/L (3.5-5.1); Triglycerides 851 mg/dL (30-200)
[2018-03-14 12:28] LABS: Alanine Aminotransferase 29 U/L (12-78); Aspartate Amino Transferase 30 U/L (15-37); Glucose 91 mg/dL (74-106)
[2018-03-15 06:05] LABS: Vitamin D 25 Hydroxy 43.6 ng/mL (30.0-100.0)
== END ==
PROVIDERS: Family Provider Family Medicine; PCP Family Medicine; Visit Provider Clinical Nurse Specialist Family Health
DX: M15.4 Erosive (osteo)arthritis (principal); M47.816 Spondylosis without myelopathy or radiculopathy, lumbar region; M79.1 Myalgia
CPT/HCPCS: 36415; 80053; 80061; 82652; 85025; 99212

== ENCOUNTER → 2018-03-23 12:54 | Outpatient (CLI) | payer MEDICAID, SELFPAY ==
--- NOTE | 2018-03-23 | CA_ITS ---
CA echo doppler complete PROCEDURE: INDICATIONS FOR THE TEST: Chest pain + COPD Heart Murmur Tobacco Smoking Palpitations Fatigue Syncope Edema+ Hypertension+Diabetes Mellitus Rheumatic Fever SOB+MARTINEZ Obesity Hyperlipidemia+ Family History HD Additional History PATIENT INFORMATION HEIGHT: 66 WEIGHT:205 GENDER: Female B/P:110/70 2-D/M-MODE INTERPRETATION: 2-D MEASUREMENTS OBSERVED VALUES IN CMS Right Ventricular Dimension (RVDd) 2.1 Interventricular Septum (Thickness)(IVsd) 1.0 Left Ventricular Internal Dimensions(LVIDd) 4.3 Left Ventricular Posterior Wall (Thickness)(LVPWd) 1.2 Aortic Root 2.7 Aortic Cusp Separation 2.1 Left Atrial Dimensions (LAD) 3.8 2D 1. Left atrium is mildly enlarged, left ventricle is normal size, mild qualitative concentric left ventricular hypertrophy, visually estimated ejection fraction of 55% with no obvious regional wall motion abnormality. 2. The right atrium and right ventricle are normal size and contractility. 3. The aortic valve is minimally thickened and fibrosed. 4. The mitral and tricuspid valve are structurally normal. 5. No significant pericardial effusion noted 6. Pulmonic valve is poorly visualized. DOPPLER INTERROGATION: Doppler interrogation of the aortic, mitral and tricuspid valvular presence of mild mitral and tricuspid regurgitation, tricuspid and jet velocity insufficient for calculation of the right ventricular systolic pressure, grade 1 diastolic dysfunction seen with tissue Doppler evidence of raised left atrial pressure. CONCLUSION: 1. Mildly enlarged left atrium, normal left ventricular size, visually estimated ejection fraction 55% with no obvious regional wall motion abnormality, grade 1 diastolic dysfunction seen with tissue Doppler evidence of raised left atrial pressure. 2. Mild mitral and tricuspid addition 3. No significant pericardial effusion noted.
== END ==
PROVIDERS: Family Provider Family Medicine; PCP Family Medicine; Visit Provider Family Medicine
DX: R60.1 Generalized edema (principal); R06.01 Orthopnea
CPT/HCPCS: 93306

== ENCOUNTER → 2018-04-11 14:14 | Outpatient (POV) | payer MEDICAID, SELFPAY ==
[2018-04-11 14:18] VITALS: BP 129/89; PULSE 63; RESP 18; O2SAT 99; BMI 32.5
--- NOTE | 2018-04-11 16:40 | HMH.PAINSOAP ---
[facility] Pain Management SOAP Note Subjective:: She is a pleasant 47-year-old white female who presents today for follow-up. Patient is currently waiting on an appointment with Dr. Watt. Patient is interested in spinal cord stimulator placement after successful trial. Patient rates her pain a 6 out of 10 today. Patient is interested in refilling some of her medications. Patient has used Flector patches in the past with good success however her insurance is denying this. Patient would like to try Voltaren gel 1%. Patient also needs a refill on her cyclobenzaprine 10 mg 1 tab p.o. 3 times daily as needed. Patient's tried and failed ibuprofen along with meloxicam. I believe the Voltaren gel will be helpful for her. Patient is managed with an intrathecal pain pump as well. Patient is interested in getting some cervical paraspinous trigger point injections to help with her pain until she gets her neurostimulator placed. ROS General: no recent weight change, no fever, no sleep disturbances Respiratory: no cough, no shortness of air, no recurring pulmonary infections Cardiovascular/Peripheral Vascular: No chest pain, No palpitations, no edema, no shortness of breath. Gastrointestinal: no incontinence, normal bowel movements reported Genitourinary: no incontinence Musculoskeletal: Myofascial pain Psychiatric: normal mood/ affect Neurological: [denies weakness in extremities], [denies balance issues] Objective:: Physical Exam General: Alert and oriented x3, no acute distress, pleasant and cooperative, [on room air] Lungs: Resps E/U, Symmetrical chest expansion, Eyes: PERRL Musculoskeletal: Flexion and extension of cervical spine somewhat guarded secondary to pain, deep tendon reflexes normal, strength in upper and lower extremities [5/5], slightly antalgic gait noted, palpable trigger points in the cervical paraspinous bilaterally Neurological: speech clear, horse stud worker equal, no gross sensory deficits Assessment:: Myofascial pain syndrome, postlaminectomy syndrome of the cervical spine, degenerative disc disease of the lumbar spine Plan:: Patient is to keep her appointment with Dr. Watt. Patient needs to find out if she is a candidate for neurostimulator implant. We will schedule trigger point injections for the cervical paraspinous bilaterally. This will help with pain control until her neurostimulator implant. We will call in cyclobenzaprine 10 mg 1 p.o. 3 times daily as needed. We will also call in Voltaren gel 1%. This note was dictated using voice recognition software and may contain errors or omissions
--- NOTE | 2018-04-11 16:43 | P.CONS_ITS ---
[facility] Pain Management SOAP Note Subjective:: She is a pleasant 47-year-old white female who presents today for follow-up. Patient is currently waiting on an appointment with Dr. Watt. Patient is interested in spinal cord stimulator placement after successful trial. Patient rates her pain a 6 out of 10 today. Patient is interested in refilling some of her medications. Patient has used Flector patches in the past with good success however her insurance is denying this. Patient would like to try Voltaren gel 1%. Patient also needs a refill on her cyclobenzaprine 10 mg 1 tab p.o. 3 times daily as needed. Patient's tried and failed ibuprofen along with meloxicam. I believe the Voltaren gel will be helpful for her. Patient is managed with an intrathecal pain pump as well. Patient is interested in getting some cervical paraspinous trigger point injections to help with her pain until she gets her neurostimulator placed. ROS General: no recent weight change, no fever, no sleep disturbances Respiratory: no cough, no shortness of air, no recurring pulmonary infections Cardiovascular/Peripheral Vascular: No chest pain, No palpitations, no edema, no shortness of breath. Gastrointestinal: no incontinence, normal bowel movements reported Genitourinary: no incontinence Musculoskeletal: Myofascial pain Psychiatric: normal mood/ affect Neurological: [denies weakness in extremities], [denies balance issues] Objective:: Physical Exam General: Alert and oriented x3, no acute distress, pleasant and cooperative, [ on room air] Lungs: Resps E/U, Symmetrical chest expansion, Eyes: PERRL Musculoskeletal: Flexion and extension of cervical spine somewhat guarded secondary to pain, deep tendon reflexes normal, strength in upper and lower extremities [5/5], slightly antalgic gait noted, palpable trigger points in the cervical paraspinous bilaterally Neurological: speech clear, photonics engineering technologist equal, no gross sensory deficits Assessment:: Myofascial pain syndrome, postlaminectomy syndrome of the cervical spine, degenerative disc disease of the lumbar spine Plan:: Patient is to keep her appointment with Dr. Watt. Patient needs to find out if she is a candidate for neurostimulator implant. We will schedule trigger point injections for the cervical paraspinous bilaterally. This will help with pain control until her neurostimulator implant. We will call in cyclobenzaprine 10 mg 1 p.o. 3 times daily as needed. We will also call in Voltaren gel 1%. This note was dictated using voice recognition software and may contain errors or omissions
--- NOTE | 2018-04-12 09:32 | PC.PHONENOTE ---
04/08/18-Called in Rx for Flexeril 10mg TIDPRN with 1 refill and Voltaren 1% gel with no refills per provider order
== END ==
PROVIDERS: Family Provider Family Medicine; PCP Family Medicine; Visit Provider Clinical Nurse Specialist Family Health
DX: M79.1 Myalgia (principal); M51.36 Other intervertebral disc degeneration, lumbar region
CPT/HCPCS: 99212

== ENCOUNTER → 2018-04-28 09:47 | Outpatient (CLI) | payer MEDICAID, SELFPAY ==
--- NOTE | 2018-04-28 09:55 | XR_ITS ---
XR chest 2V HISTORY: ITS.REASON: PNEUMONIA ORDERING PHYSICIAN: Gayla Galan MD PATIENT AGE: 47 years COMPARISON: 03/30/2018 FINDINGS: The cardiomediastinal silhouette and pulmonary vascularity are within normal limits. Left lower lobe pneumonia has resolved since the previous exam. Calcified granuloma is present in the left perihilar region. The right lung is clear. There is a bone plate over the lower cervical spine. IMPRESSION: No acute finding, resolved left lower lobe pneumonia
== END ==
PROVIDERS: PCP Family Medicine; Visit Provider Family Medicine
DX: J18.1 Lobar pneumonia, unspecified organism (principal)
CPT/HCPCS: 71046

== ENCOUNTER 2018-04-28 14:30 | Outpatient (RCR) | payer MEDICAID, SELFPAY | END 2018-04-28 14:31 | disposition home or self-care (01) | LOC: PT 14:30 | PROVIDERS: Family Provider Family Medicine; PCP Family Medicine; Visit Provider Orthopaedic Surgery Adult Reconstructive Orthopaedic Surgery | DX: M70.62 Trochanteric bursitis, left hip (principal); M72.2 Plantar fascial fibromatosis | CPT/HCPCS: 97033; 97035; 97110; 97140; 97163; 97164 ==

== ENCOUNTER → 2018-05-04 06:40 | Outpatient (CLI) | payer MEDICAID, SELFPAY ==
--- NOTE | 2018-05-04 06:42 | NM_ITS ---
History and Indications: Hypertension, family history, chest pain and shortness of breath Procedure: Patient received a 0.4 mg of Lexiscan, resting heart rate was 61 beats prominent resting blood pressure 119/73, with Lexiscan maximum heart rate achieved was 101 bpm which is less than 85% of the maximum predicted heart rate and a blood pressure was 118/64. With Lexiscan patient complained of shortness of breath nausea requiring intravenous Aminophyllin to reverse symptoms. Electrocardiogram: Resting echocardiogram showed sinus rhythm, leaflet changes, with Lexiscan there is less than 1.[address] segment depression noted from the baseline EKG. The EKG portion of the Lexiscan Myoview is nondiagnostic. Cardiac stress and resting SPECT images: Cardiac stress and resting SPECT images were obtained using technetium 99 Myoview 29.6 mCi at stress than 10.6 mCi at rest, gated SPECT further analysis of segmental wall motion and calculation of the ejection fraction also done. Cardiac stress and rest SPECT images show uniform myocardial activity without segmental segmental perfusion abnormality, computer derived ejection fraction 55% with no obvious regional wall motion abnormality, right ventricle is normal size and contractility. Conclusion: 1. The EKG portion of the Lexiscan Myoview is nondiagnostic. 2. No obvious scintigraphic evidence of reversible ischemia seen, computer derived ejection fraction is over 65% with no obvious regional wall motion abnormality, right ventricle is normal size and contractility. 3. Normal Lexiscan Myoview study.
--- NOTE | 2018-05-04 07:13 | HMH.ITSHM ---
BISOPROLOL LISINOPRIL SYNTHROID
== END ==
PROVIDERS: Family Provider Family Medicine; PCP Family Medicine; Visit Provider Internal Medicine
DX: R07.89 Other chest pain (principal); R06.09 Other forms of dyspnea; R60.9 Edema, unspecified; G44.1 Vascular headache, not elsewhere classified; Z82.49 Family history of ischemic heart disease and other diseases of the circulatory system
CPT/HCPCS: 78452; 93017; A9502; J2785

== ENCOUNTER → 2018-05-24 11:25 | Outpatient (POV) | payer MEDICAID, SELFPAY ==
--- NOTE | 2018-05-24 11:51 | HMH.PAINSOAP ---
[facility] Pain Management SOAP Note Subjective:: Patient is a pleasant 47-year-old white female who presents today for follow-up. Patient is currently on an intrathecal infusion of Dilaudid 0.25 mg a day with 3 boluses a day. Patient states that this takes care of most of her low back pain. Patient is having cervical pain. Patient had an appropriate neurostimulator trial however Dr. Watt states he believes the surgery to in her paddle lead would be too risky for her. At this time patient is being managed with trigger point injections. Patient does well with these. Patient states she gets up to 90% relief for 8 weeks. We will schedule this for her today. Rates her pain a 6 out of 10 mostly in her neck. ROS General: no recent weight change, no fever, no sleep disturbances Respiratory: no cough, no shortness of air, no recurring pulmonary infections Cardiovascular/Peripheral Vascular: No chest pain, No palpitations, no edema, no shortness of breath. Gastrointestinal: no incontinence, normal bowel movements reported Genitourinary: no incontinence Musculoskeletal: Neck pain, back pain Psychiatric: normal mood/ affect Neurological: [denies weakness in extremities], [denies balance issues] Objective:: Physical Exam General: Alert and oriented x3, no acute distress, pleasant and cooperative, [on room air] Lungs: Resps E/U, Symmetrical chest expansion, Eyes: PERRL Musculoskeletal: Flexion and extension of cervical spine somewhat guarded secondary to pain, deep tendon reflexes normal, strength in upper and lower extremities [5/5], normal gait noted, palpable trigger points noted in the bilateral cervical paraspinous and bilateral upper trapezius area Neurological: speech clear, senior php developer equal, no gross sensory deficits Assessment:: Myofascial pain syndrome, postlaminectomy syndrome, degenerative disc disease of the lumbar spine Plan:: We will schedule trigger point injections for this patient in about 6 weeks. I believe given the efficacy of them in the past that this would be beneficial. I will follow-up with this patient at at the time of her injections. Patient instructed to call the office if she has any issues prior to her next appointment. This note was dictated using voice recognition software and may contain errors or omissions
[2018-05-24 11:53] VITALS: BP 119/77; PULSE 65; RESP 18; O2SAT 98; BMI 31.1
--- NOTE | 2018-05-24 11:55 | P.CONS_ITS ---
[facility] Pain Management SOAP Note Subjective:: Patient is a pleasant 47-year-old white female who presents today for follow- up. Patient is currently on an intrathecal infusion of Dilaudid 0.25 mg a day with 3 boluses a day. Patient states that this takes care of most of her low back pain. Patient is having cervical pain. Patient had an appropriate neurostimulator trial however Dr. Watt states he believes the surgery to in her paddle lead would be too risky for her. At this time patient is being managed with trigger point injections. Patient does well with these. Patient states she gets up to 90% relief for 8 weeks. We will schedule this for her today. Rates her pain a 6 out of 10 mostly in her neck. ROS General: no recent weight change, no fever, no sleep disturbances Respiratory: no cough, no shortness of air, no recurring pulmonary infections Cardiovascular/Peripheral Vascular: No chest pain, No palpitations, no edema, no shortness of breath. Gastrointestinal: no incontinence, normal bowel movements reported Genitourinary: no incontinence Musculoskeletal: Neck pain, back pain Psychiatric: normal mood/ affect Neurological: [denies weakness in extremities], [denies balance issues] Objective:: Physical Exam General: Alert and oriented x3, no acute distress, pleasant and cooperative, [ on room air] Lungs: Resps E/U, Symmetrical chest expansion, Eyes: PERRL Musculoskeletal: Flexion and extension of cervical spine somewhat guarded secondary to pain, deep tendon reflexes normal, strength in upper and lower extremities [5/5], normal gait noted, palpable trigger points noted in the bilateral cervical paraspinous and bilateral upper trapezius area Neurological: speech clear, slipper maker equal, no gross sensory deficits Assessment:: Myofascial pain syndrome, postlaminectomy syndrome, degenerative disc disease of the lumbar spine Plan:: We will schedule trigger point injections for this patient in about 6 weeks. I believe given the efficacy of them in the past that this would be beneficial. I will follow-up with this patient at at the time of her injections. Patient instructed to call the office if she has any issues prior to her next appointment. This note was dictated using voice recognition software and may contain errors or omissions
--- NOTE | 2018-06-07 08:24 | PC.NURSE ---
REFILLS FOR CYCLOBENZAPRINE 10MG TAB FAXED TO [facility] WITH 2 REFILLS
== END ==
PROVIDERS: Family Provider Family Medicine; PCP Family Medicine; Visit Provider Clinical Nurse Specialist Family Health
DX: M79.1 Myalgia (principal)
CPT/HCPCS: 99212

== ENCOUNTER → 2018-06-09 11:28 | Outpatient (CLI) | payer MEDICAID, SELFPAY ==
[2018-06-09 11:45] LABS: Basophils % 0.5 % (0.1-2.0); Eosinophils # 0.2 K/mm3 (0.0-0.4); Eosinophils % 4.8 % (0.1-12.0); Hematocrit 41.4 % (37.0-47.0); Hemoglobin 13.4 g/dL (12.2-16.2); Lymphocytes # 2.9 K/mm3 (0.7-4.5); Mean Corpuscular HGB Conc 32.3 g/dL (31.8-35.4); Mean Corpuscular Hemoglobin 29.8 pg (27.0-31.2); Mean Corpuscular Volume 92.2 fl (81-99); Mean Platelet Volume 8.8 fl (7.4-10.4); Monocytes # 0.2 K/mm3 (0.1-1.0); Monocytes % 4.5 % (1.7-9.3); Neutrophils # 1.4 K/mm3 (1.8-7.8); Neutrophils % 30.2 % (37.0-80.0); Platelet Count 198 K/mm3 (142-424); Red Blood Count 4.49 M/mm3 (4.20-5.40); Red Cell Distribution Width 13.5 % (11.5-17.5); White Blood Count 4.8 K/mm3 (4.8-10.8)
[2018-06-09 11:50] LABS: MANUAL DIFFERENTIAL MANUAL DIFFERENTIAL (MANUAL DIFF)
[2018-06-09 12:50] LABS: Alanine Aminotransferase 48 U/L (12-78); Albumin Level 3.8 gm/dL (3.4-5.0); Albumin/Globulin Ratio 1.2 (1.1-1.8); Alkaline Phosphatase 45 U/L (46-116); Anion Gap 8.5 mEq/L (5-15); Aspartate Amino Transferase 28 U/L (15-37); Bilirubin,Total 0.3 mg/dL (0.2-1.0); Blood Urea Nitrogen 18 mg/dL (7-18); Calcium 8.7 mg/dL (8.5-10.1); Carbon Dioxide 30 mmol/L (21.0-32.0); Chloride 107 mmol/L (98-107); Chol/HDL Ratio 4.6 (1-3.5); Cholesterol 222 mg/dL (140-200); Creatinine,Serum 0.84 mg/dL (0.55-1.02); Estimated Glomerular Filt Rate 72 ml/min (>60); GFR (African American) 87 ML/MIN (>60); Globulin 3.2 gm/dl (1.3-3.2); Glucose 89 mg/dL (74-106); HDL Cholesterol 48 mg/dL (29-89); LDL Cholesterol 141 mg/dL (0-130); Potassium 4.5 mmoL/L (3.5-5.1); Sodium 141 mmol/L (136-145); T4 (Thyroxine) 10.2 ug/dl (4.7-13.3); Thyroid Stimulating Hormone 1.16 uIU/ml (0.358-3.740); Triglycerides 165 mg/dL (30-200); VLDL Cholesterol 33 mg/dL (0-40)
[2018-06-09 13:04] LABS: Eosinophils % 1 % (0-3); Lymphocytes % 59 % (10-50); Monocytes % 8 % (2-9); Neutrophils % 32 % (42-76); Platelet Estimate Normal; RBC Morphology Normal; Total Cells Counted 100
== END ==
PROVIDERS: Visit Provider Family Medicine
DX: G43.019 Migraine without aura, intractable, without status migrainosus (principal); I10 Essential (primary) hypertension; E03.8 Other specified hypothyroidism; E06.3 Autoimmune thyroiditis; E78.2 Mixed hyperlipidemia
CPT/HCPCS: 36415; 80053; 80061; 84436; 84443; 85007; 85025

== ENCOUNTER → 2018-07-06 09:33 | Outpatient (CLI) | payer MEDICAID, SELFPAY ==
--- NOTE | 2018-07-06 09:52 | MR_ITS ---
MR foot LT wo con Ordering Physician: Hans Burden Patient Age: 47 years: Female HISTORY: ITS.REASON: Plantar fascial fibromatosis Heel pain along plantar medial and lateral aspect. Plantar fasciitis. Reported Bone spur. TECHNIQUE: Multiplanar multisequence imaging left hindfoot without contrast on 1.5 T MR COMPARISON :None available FINDINGS Prominent plantar fasciitis abnormalities There is thickening and increased signal within the central and medial component of the plantar aponeurosis as it approaches is insertion upon upon calcaneal plantar spur. There is surrounding edema about the plantar aponeurosis. Slight increased bone signal is seen at the plantar calcaneal spur suggesting minor edema here.; With Upper normal signal inferior calcaneus adjacent to this... On the coronal image 26 on question a partial marginal tear along medial inferior margin of the plantar fascia-. The dark margin of the tendon becomes less well-defined & appears slightly discontinuous on, sagittal slice 11 & 12 along with coronal 26. Otherwise the subtalar joint appears intact. Only scant fluid subtalar joint most evident towards its mid and anterior aspect.. No coalition Small appearing signal focus likely bone island or benign sclerotic focus at the posterior talus at subtalar joint. Not of significance Moderate posterior process of the talus, vs suspect os trigonum point after further review. Slight increase fluid surrounding this feature along posterior aspect ankle joint, and here overlying calcaneus reflecting a small joint effusion. IMPRESSION: 1.. Plantar fasciitis. Focal Thickening & increased signal is seen involving the central and medial components of the plantar aponeurosis where they insertion upon the plantar calcaneal spur. Surrounding perifascial edema. Subtle increased signal at the plantar calcaneal spur and less evident along adjacent reflecting reactive changes There is a ill-defined margin along medial/inferior aspect of this involved plantar fascia, which could reflect limited partial marginal tear here. 2.. Small Focal fluid collection posterior aspect ankle joint and likely merely reflects small joint effusion. This small fluid collection surrounds a moderate Posterior process of talus vs possible small os trigonum here.
== END ==
PROVIDERS: Family Provider Family Medicine; PCP Family Medicine; Visit Provider Orthopaedic Surgery Adult Reconstructive Orthopaedic Surgery
DX: M72.2 Plantar fascial fibromatosis (principal)
CPT/HCPCS: 73718

== ENCOUNTER → 2018-08-23 11:23 | Outpatient (POV) | payer MEDICAID, SELFPAY ==
[2018-08-23 11:49] VITALS: BP 132/61; PULSE 67; RESP 18; O2SAT 98; BMI 33.4
--- NOTE | 2018-08-23 12:27 | HMH.PMPROC ---
- Procedure Date: 08/23/18 Time: 11:30 Anesthesiologist:: Ninoska Castillo APRN Complications:: None Pre-procedure Diagnosis:: Post laminectomy syndrome cervical spine cervical radiculopathy myofascial pain syndrome Post-procedure Diagnosis:: Same Indications for Procedure:: Is a pleasant 48-year-old white female who presents today for intrathecal pain pump adjustment. Patient is currently on a Dilaudid dose of 0. 40 mg a day. Patient is having some increased pain rating it a 6 out of 10. She denies any side effects to her intrathecal pain pump infusion. ROS General: no recent weight change, no fever, no sleep disturbances Respiratory: no cough, no shortness of air, no recurring pulmonary infections Cardiovascular/Peripheral Vascular: No chest pain, No palpitations, no edema, no shortness of breath. Gastrointestinal: no incontinence, normal bowel movements reported Genitourinary: no incontinence Musculoskeletal: Neck pain, back pain Psychiatric: normal mood/ affect, [denies depression], [denies anxiety] Neurological: [denies weakness in extremities], [denies balance issues] Physical Exam General: Alert and oriented x3, no acute distress, pleasant and cooperative, [on room air] Lungs: Resps E/U, Symmetrical chest expansion, Eyes: PERRL Musculoskeletal: Flexion and extension of lumbar and cervical spine somewhat guarded secondary to pain, deep tendon reflexes normal, strength in upper and lower extremities [5/5], slightly antalgic gait noted Neurological: speech clear, supermarket manager equal, no gross sensory deficits Procedure Details:: Informed consent was obtained and the risk and benefits of the procedure were explained to the patient. The patient was taken to the procedure room where noninvasive monitoring was placed including noninvasive blood pressure cuff and pulse oximeter. Patient's pump was interrogated. The infusion rate was increased to half a milligram of Dilaudid a day. The patient tolerated the procedure well. Plan and Disposition:: We will set the patient up for dry needling we also discussed trying CBD oil. Patient's been instructed to call the office if she has any issues prior to her next refill. This note was dictated using voice recognition software and may contain errors or omissions
--- NOTE | 2018-08-23 12:30 | P.PCN_ITS ---
- Procedure Date: 08/23/18 Time: 11:30 Anesthesiologist:: Ninoska Castillo APRN Complications:: None Pre-procedure Diagnosis:: Post laminectomy syndrome cervical spine cervical radiculopathy myofascial pain syndrome Post-procedure Diagnosis:: Same Indications for Procedure:: Is a pleasant 48-year-old white female who presents today for intrathecal pain pump adjustment. Patient is currently on a Dilaudid dose of 0. 40 mg a day. Patient is having some increased pain rating it a 6 out of 10. She denies any side effects to her intrathecal pain pump infusion. ROS General: no recent weight change, no fever, no sleep disturbances Respiratory: no cough, no shortness of air, no recurring pulmonary infections Cardiovascular/Peripheral Vascular: No chest pain, No palpitations, no edema, no shortness of breath. Gastrointestinal: no incontinence, normal bowel movements reported Genitourinary: no incontinence Musculoskeletal: Neck pain, back pain Psychiatric: normal mood/ affect, [denies depression], [denies anxiety] Neurological: [denies weakness in extremities], [denies balance issues] Physical Exam General: Alert and oriented x3, no acute distress, pleasant and cooperative, [on room air] Lungs: Resps E/U, Symmetrical chest expansion, Eyes: PERRL Musculoskeletal: Flexion and extension of lumbar and cervical spine somewhat guarded secondary to pain, deep tendon reflexes normal, strength in upper and lower extremities [5/5], slightly antalgic gait noted Neurological: speech clear, rn ostomy equal, no gross sensory deficits Procedure Details:: Informed consent was obtained and the risk and benefits of the procedure were explained to the patient. The patient was taken to the procedure room where noninvasive monitoring was placed including noninvasive blood pressure cuff and pulse oximeter. Patient's pump was interrogated. The infusion rate was increased to half a milligram of Dilaudid a day. The patient tolerated the proc edure well. Plan and Disposition:: We will set the patient up for dry needling we also discussed trying CBD oil. Patient's been instructed to call the office if she has any issues prior to her next refill. This note was dictated using voice recognition software and may contain errors or omissions
--- NOTE | 2018-08-25 10:35 | PC.PHONENOTE ---
CALLED IN RX FOR PREDNISONE 20MG BID X5 DAYS TO [facility] PER PROVIDERS ORDER
== END ==
PROVIDERS: Family Provider Family Medicine; PCP Family Medicine; Visit Provider Clinical Nurse Specialist Family Health
DX: M50.10 Cervical disc disorder with radiculopathy, unspecified cervical region (principal); M96.1 Postlaminectomy syndrome, not elsewhere classified
CPT/HCPCS: 62368

== ENCOUNTER 2018-09-20 13:30 | Outpatient (RCR) | payer MEDICAID, SELFPAY ==
--- NOTE | 2018-08-25 09:16 | HMH.PTOPEV ---
PT Outpatient Evaluation Rehab PT Outpatient Evaluation Start: 08/25/18 08:39 Freq: Status: Active Protocol: Document 08/25/18 08:39 TANCHUCHO (Rec: 08/25/18 09:15 ROSALIA [id number]) Electronically Signed By Mando Matamoros, PT 08/25/18 08:39 Outpatient Therapy Subjective History Subjective History Pt is a 48 year old female presenting to outpatient PT with reports of chronic cervical and lumbar spine pain (C>L) which has progressively worsened over the past 10 years. Hx of chiari malformation, cervical spine fusion and lumbar spine pain pump insertion. Pt reports previous Rx in pain mangement with some significant improvements. Previous episode of PT provided minimal relief. No other comorbidities to report. Chief Complaint Pain Spasms Stiff Clicks Paresthesia Weakness Decreased Operational Assistant Strength Symptom Type Ache Sharp Numbness Tingling Symptoms Relieved By Nothing Symptoms Aggravated By Prone Supine Sitting Standing Bending/Stooping Physical Activity Twisting Walking Lifting Prior Functional Limitations Reaching Lifting Housework Driving Sleeping Standing Sitting Squatting Recreation Activity Walking Stairs Balance Current Functional Limitations Reaching Lifting Housework Driving Sleeping
== END 2018-09-20 13:31 | disposition home or self-care (01) ==
LOC: PT 13:30
PROVIDERS: Visit Provider Clinical Nurse Specialist Family Health
DX: M79.1 Myalgia (principal)
CPT/HCPCS: 97010; 97014; 97110; 97140; 97163; G0283

== ENCOUNTER → 2018-09-26 11:27 | Outpatient (POV) | payer MEDICAID, SELFPAY ==
[2018-09-26 12:00] VITALS: BP 118/75; PULSE 68; RESP 18; O2SAT 97; BMI 33.9
--- NOTE | 2018-09-26 12:37 | HMH.PMPROC ---
- Procedure Date: 09/26/18 Time: 11:50 Anesthesiologist:: Ninoska Castillo APRN Complications:: None Pre-procedure Diagnosis:: Postlaminectomy syndrome cervical spine and cervical radiculopathy and myofascial pain syndrome Post-procedure Diagnosis:: Same Indications for Procedure:: Patient is a pleasant 48-year-old white female who presents today for follow-up. Patient has an intrathecal pain pump and would like an adjustment. She is currently on a Dilaudid dose of 0.5 mg a day. Patient would like to be on periodic flow. She denies any side effects and rates her pain about a 6 out of 10. Physical Exam General: Alert and oriented x3, no acute distress, pleasant and cooperative, [on room air] Lungs: Resps E/U, Symmetrical chest expansion, [CTA bilateral] Eyes: PERRL Musculoskeletal: Flexion and extension of cervical spine somewhat guarded secondary to pain, deep tendon reflexes normal, strength in upper and lower extremities [5/5], normal gait noted Neurological: speech clear, outboard technician equal, no gross sensory deficits Procedure Details:: Informed consent was obtained and the risk and benefits of the procedure were explained to the patient. The patient was taken to the procedure room where noninvasive monitoring was placed including noninvasive blood pressure cuff and pulse oximeter. Patient's pump was interrogated. The infusion rate was changed to 0.07 mg every 2 hours for total daily dose of 0.84 mg of Dilaudid a day. The patient tolerated the procedure well. Plan and Disposition:: I will follow-up with this patient and her next intrathecal pain pump refill and reprogram. Patient is doing well at this time. I have instructed to call the office if she has any issues. This note was dictated using voice recognition software and may contain errors or omissions
== END ==
PROVIDERS: PCP Family Medicine; Visit Provider Clinical Nurse Specialist Family Health
DX: M96.1 Postlaminectomy syndrome, not elsewhere classified (principal); M54.12 Radiculopathy, cervical region; M79.18 Myalgia, other site
CPT/HCPCS: 62368

== ENCOUNTER → 2018-10-10 11:30 | Outpatient (POV) | payer MEDICAID, SELFPAY ==
[2018-10-10 11:57] VITALS: BP 180/65; PULSE 71; RESP 18; O2SAT 98; BMI 30.5
--- NOTE | 2018-10-10 12:01 | P.CONS_ITS ---
[facility] Pain Management SOAP Note Subjective:: Patient is a pleasant 48-year-old white female who presents today for follow-up. Patient has been having her intrathecal pain pump alarm. Patient is a low reservoir. We will order her medication and have her refill tomorrow. She rates her pain a 5 out of 10 today. ROS General: no recent weight change, no fever, no sleep disturbances Respiratory: no cough, no shortness of air, no recurring pulmonary infections Cardiovascular/Peripheral Vascular: No chest pain, No palpitations, no edema, no shortness of breath. Gastrointestinal: no incontinence, normal bowel movements reported Genitourinary: no incontinence Musculoskeletal: Neck pain Psychiatric: normal mood/ affect Neurological: [denies weakness in extremities], [denies balance issues] Objective:: Physical Exam General: Alert and oriented x3, no acute distress, pleasant and cooperative, [on room air] Lungs: Resps E/U, Symmetrical chest expansion, Eyes: PERRL Musculoskeletal: Flexion and extension of cervical spine somewhat guarded secondary to pain, deep tendon reflexes normal, strength in upper and lower extremities [5/5], normal gait noted Neurological: speech clear, mop worker equal, no gross sensory deficits Assessment:: Post laminectomy syndrome cervical spine with cervical radiculopathy and myofascial pain syndrome Plan:: We will order her medication and have her intrathecal pain pump filled tomorrow. In the meantime we will give her Henniker 5 mg 1 p.o. 3 times daily dispensing six pills in case she feels like she needs them. Dr. oByce is reviewed this and agrees with this plan of care. This note was dictated using voice recognition software and may contain errors or omissions
== END ==
PROVIDERS: PCP Family Medicine; Visit Provider Clinical Nurse Specialist Family Health
DX: M96.1 Postlaminectomy syndrome, not elsewhere classified (principal); M50.10 Cervical disc disorder with radiculopathy, unspecified cervical region
CPT/HCPCS: 62368

== ENCOUNTER → 2018-10-19 14:01 | Outpatient (POV) | payer MEDICAID, SELFPAY ==
[2018-10-19 14:23] VITALS: BP 117/67; PULSE 74; RESP 20; O2SAT 98; BMI 33.9
--- NOTE | 2018-10-19 14:29 | HMH.PMPROC ---
- Procedure Date: 10/19/18 Time: 14:29 Anesthesiologist:: Robert Boyce MD Complications:: None Pre-procedure Diagnosis:: Degenerative disc disease of lumbar spine with lumbar radiculopathy symptoms Post-procedure Diagnosis:: Same Indications for Procedure:: This patient is a pleasant 48-year-old white female who we are treating for low back pain with lumbar radiculopathy symptoms. She currently has an intrathecal Dilaudid pain pump in place. She is currently on periodic flow with 0.05 mg boluses every 2 hours. Total daily dose of 0.6 mg/day. She missed her refill appointment and her pump was empty over the weekend. She came in with withdrawals on Wednesday and had her pump refilled. She was restarted at this current dose which is down from her normal dose of 0.8 mg/day. She is having some increasing pain. She has had no signs or symptoms of overmedication or sedation. She is requesting an increase in her pump back to her normal level of 0.84 mg/day. Procedure Details:: Informed consent was obtained and the risk and benefits of the procedure was into the patient. Patient was taken to the procedure room. Pump was interrogated. Intrathecal Dilaudid pain pump was increased to 0.07 mg boluses every 2 hours for total daily dose increased to 0.84 mg/day. Patient tolerated the procedure well with no complications. Plan and Disposition:: We will follow-up with her in 2 weeks. We will reevaluate her symptoms at that time. She is complaining of some lower back pain over the coccyx region. She need a caudal epidural steroid injection if this pain persist.
== END ==
PROVIDERS: PCP Family Medicine; Visit Provider Anesthesiology
DX: M51.16 Intervertebral disc disorders with radiculopathy, lumbar region (principal)
CPT/HCPCS: 62368

== ENCOUNTER → 2018-10-31 13:02 | Outpatient (POV) | payer MEDICAID, SELFPAY ==
[2018-10-31 13:37] VITALS: BP 124/76; PULSE 65; RESP 18; O2SAT 99; BMI 33.9
--- NOTE | 2018-10-31 15:48 | HMH.PAINSOAP ---
[facility] Pain Management SOAP Note Subjective:: Patient is a pleasant 48-year-old white female who presents today for follow-up. Patient had an exacerbation of pain. Patient presents today after a flareup in her pain. Patient is currently on a intrathecal pain pump with a dose of 0.1 mg every 2 hours for total daily dose of 1.2 mg a day of Dilaudid. Patient was having significant myofascial pain and he received trigger point injections however she states that above this area is where she started having more pain she rates her pain a 7 out of 10 today. Of note I did give her the central sensitization inventory which she tested positive for. Patient and I had a discussion about potential cognitive behavioral therapy. Patient is not very interested in this at this time however I do believe it would be beneficial for her. Patient states most of her pain is myofascial in nature. We will start her on some baclofen. Patient has tried and failed Zanaflex and Flexeril. ROS General: no recent weight change, no fever, no sleep disturbances Respiratory: no cough, no shortness of air, no recurring pulmonary infections Cardiovascular/Peripheral Vascular: No chest pain, No palpitations, no edema, no shortness of breath. Gastrointestinal: no incontinence, normal bowel movements reported Genitourinary: no incontinence Musculoskeletal: Back pain, myofascial pain Psychiatric: normal mood/ affect Neurological: [denies weakness in extremities], [denies balance issues] Objective:: Physical Exam General: Alert and oriented x3, no acute distress, pleasant and cooperative, [on room air] Lungs: Resps E/U, Symmetrical chest expansion, Eyes: PERRL Musculoskeletal: Flexion and extension of cervical and lumbar spine somewhat guarded secondary to pain, deep tendon reflexes normal, strength in upper and lower extremities [5/5], antalgic gait noted Neurological: speech clear, electric meter tester helper equal, no gross sensory deficits Assessment:: Degenerative disc disease cervical and lumbar spine with lumbar radiculopathy along with myofascial pain syndrome, postlaminectomy syndrome cervical spine Plan:: We will call the patient baclofen 10 mg 1 p.o. daily 3 times daily as needed. We will continue her intrathecal therapy at this time. Patient is good to call us and tell us if this is helping her. We will see her back at her next intrathecal pain pump refill and reprogram. This note was dictated using voice recognition software and may contain errors or omissions
== END ==
PROVIDERS: PCP Family Medicine; Visit Provider Clinical Nurse Specialist Family Health
DX: M50.30 Other cervical disc degeneration, unspecified cervical region (principal); M51.16 Intervertebral disc disorders with radiculopathy, lumbar region; M79.18 Myalgia, other site; M96.1 Postlaminectomy syndrome, not elsewhere classified
CPT/HCPCS: 62368; 99213

== ENCOUNTER → 2018-11-01 10:10 | Outpatient (POV) | payer MEDICAID, SELFPAY ==
[2018-11-01 10:28] VITALS: BP 136/76; PULSE 71; RESP 18; O2SAT 99; BMI 33.9
--- NOTE | 2018-11-01 10:37 | HMH.PMPROC ---
- Procedure Date: 11/01/18 Time: 10:30 Anesthesiologist:: Ninoska Castillo APRN Complications:: None Pre-procedure Diagnosis:: Degenerative disc disease lumbar spine with lumbar radiculopathy along with postlaminectomy syndrome cervical spinal cervical radiculopathy Post-procedure Diagnosis:: Same Indications for Procedure:: Patient is a pleasant 48-year-old white female who presents today for intrathecal pain pump reprogram. Patient rates her pain a 6 out of 10 today. Patient would like to have her constant flow back. Physical Exam General: Alert and oriented x3, no acute distress, pleasant and cooperative, [on room air] Lungs: Resps E/U, Symmetrical chest expansion, Eyes: PERRL Musculoskeletal: Flexion and extension of lumbar and cervical spine somewhat guarded secondary to pain, deep tendon reflexes normal, strength in upper and lower extremities [5/5], slightly antalgic gait noted Neurological: speech clear, consumer loan underwriter equal, no gross sensory deficits Procedure Details:: Informed consent was obtained and the risk and benefits of the procedure were explained to the patient. The patient was taken to the procedure room where noninvasive monitoring was placed including noninvasive blood pressure cuff and pulse oximeter. Patient's pump was interrogated. The infusion rate was changed to a constant Dilaudid infusion of 1.2 mg a day with a 0.1 mg bolus up to 4 times a day. The patient tolerated the procedure well. Plan and Disposition:: I will see the patient back on intrathecal pain pump refill. Patient's been instructed to call the office if she has any issues prior to next appointment. This note was dictated using voice recognition software and may contain errors or omissions
--- NOTE | 2018-11-30 10:01 | PC.PHONENOTE ---
Pt called office to report new onset constipation after intrathecal pain pump dosage was increased. States she has tried OTC medications with no success. Discussed with ANNE Alejo who ordered Linzess 125mCG PO Daily Disp #30 with no refills. Prescription called into pt's requested pharmacy.
== END ==
PROVIDERS: PCP Family Medicine; Visit Provider Clinical Nurse Specialist Family Health
DX: M51.16 Intervertebral disc disorders with radiculopathy, lumbar region (principal); M96.1 Postlaminectomy syndrome, not elsewhere classified; M54.12 Radiculopathy, cervical region
CPT/HCPCS: 62368

== ENCOUNTER → 2019-01-31 12:49 | Outpatient (POV) | payer MEDICAID, SELFPAY ==
[2019-01-31 12:57] VITALS: BP 150/80; PULSE 84; RESP 18; O2SAT 98; BMI 33.9
--- NOTE | 2019-02-27 12:08 | HMH.PAINSOAP ---
[facility] Pain Management SOAP Note Subjective:: Patient is a very pleasant 48-year-old white female who presents today to discuss her myofascial pain. Patient is having myofascial pain in her neck and bilateral trapezius. Patient does state that with the weather she does have more relief.. She also has an intrathecal pain pump which is helping greatly with her back pain. ROS General: no recent weight change, no fever, no sleep disturbances Respiratory: no cough, no shortness of air, no recurring pulmonary infections Cardiovascular/Peripheral Vascular: No chest pain, No palpitations, no edema, no shortness of breath. Gastrointestinal: no incontinence, normal bowel movements reported Genitourinary: no incontinence Musculoskeletal: Myofascial pain, neck pain Psychiatric: normal mood/ affect Neurological: [denies weakness in extremities], [denies balance issues] Objective:: Physical Exam General: Alert and oriented x3, no acute distress, pleasant and cooperative, [on room air] Lungs: Resps E/U, Symmetrical chest expansion, Eyes: PERRL Musculoskeletal: Flexion and extension of cervical spine somewhat guarded secondary to pain, deep tendon reflexes normal, strength in upper and lower extremities [5/5], slightly antalgic gait noted Neurological: speech clear, cinema or theatre manager equal, no gross sensory deficits Assessment:: Cervical postlaminectomy syndrome, myofascial pain syndrome Plan:: I will see the patient back in a week reassess her at that time. We may move forward with trigger point injections. Patient is going to see if she does better with the weather change. Dr. Boyce has reviewed this note and agrees with this plan of care. This note was dictated using voice recognition software and may contain errors or omissions
--- NOTE | 2019-02-27 12:11 | P.CONS_ITS ---
[facility] Pain Management SOAP Note Subjective:: Patient is a very pleasant 48-year-old white female who presents today to discuss her myofascial pain. Patient is having myofascial pain in her neck and bilateral trapezius. Patient does state that with the weather she does have more relief.. She also has an intrathecal pain pump which is helping greatly with her back pain. ROS General: no recent weight change, no fever, no sleep disturbances Respiratory: no cough, no shortness of air, no recurring pulmonary infections Cardiovascular/Peripheral Vascular: No chest pain, No palpitations, no edema, no shortness of breath. Gastrointestinal: no incontinence, normal bowel movements reported Genitourinary: no incontinence Musculoskeletal: Myofascial pain, neck pain Psychiatric: normal mood/ affect Neurological: [denies weakness in extremities], [denies balance issues] Objective:: Physical Exam General: Alert and oriented x3, no acute distress, pleasant and cooperative, [on room air] Lungs: Resps E/U, Symmetrical chest expansion, Eyes: PERRL Musculoskeletal: Flexion and extension of cervical spine somewhat guarded secondary to pain, deep tendon reflexes normal, strength in upper and lower extremities [5/5], slightly antalgic gait noted Neurological: speech clear, equity research associate equal, no gross sensory deficits Assessment:: Cervical postlaminectomy syndrome, myofascial pain syndrome Plan:: I will see the patient back in a week reassess her at that time. We may move forward with trigger point injections. Patient is going to see if she does better with the weather change. Dr. Boyce has reviewed this note and agrees with this plan of care. This note was dictated using voice recognition software and may contain errors or omissions
== END ==
PROVIDERS: PCP Family Medicine; Visit Provider Clinical Nurse Specialist Family Health
DX: M96.1 Postlaminectomy syndrome, not elsewhere classified (principal); M79.18 Myalgia, other site
CPT/HCPCS: 99212

== ENCOUNTER → 2019-02-07 13:58 | Outpatient (POV) | payer MEDICAID, SELFPAY ==
[2019-02-07 14:13] VITALS: BP 137/82; PULSE 71; RESP 18; O2SAT 96; BMI 34.2
--- NOTE | 2019-02-07 16:48 | HMH.PAINSOAP ---
[facility] Pain Management SOAP Note Subjective:: Patient is a very pleasant 48-year-old white female who presents today to discuss her myofascial pain. Patient is having myofascial pain in her neck and bilateral trapezius. She is interested in getting trigger point injection she has got these in the past with good relief up to 80% for several months. She also has an intrathecal pain pump which is helping greatly with her back pain. ROS General: no recent weight change, no fever, no sleep disturbances Respiratory: no cough, no shortness of air, no recurring pulmonary infections Cardiovascular/Peripheral Vascular: No chest pain, No palpitations, no edema, no shortness of breath. Gastrointestinal: no incontinence, normal bowel movements reported Genitourinary: no incontinence Musculoskeletal: Myofascial pain Psychiatric: normal mood/ affect Neurological: [denies weakness in extremities], [denies balance issues] Objective:: Physical Exam General: Alert and oriented x3, no acute distress, pleasant and cooperative, [on room air] Lungs: Resps E/U, Symmetrical chest expansion, Eyes: PERRL Musculoskeletal: Flexion and extension of cervical spine somewhat guarded secondary to pain, deep tendon reflexes normal, strength in upper and lower extremities [5/5], normal gait noted palpable trigger points cervical paraspinous and trapezius bilaterally Neurological: speech clear, trade facilitator equal, no gross sensory deficits Assessment:: Myofascial pain syndrome, degenerative disc disease cervical spine with cervical radiculopathy and postlaminectomy syndrome cervical spine Plan:: We will schedule bilateral cervical paraspinous and trapezius trigger point injections for the patient I will see her back at this time and reassess her symptoms at that time. Dr. Boyce has reviewed this note and agrees with this plan of care. This note was dictated using voice recognition software and may contain errors or omissions
== END ==
PROVIDERS: PCP Family Medicine; Visit Provider Clinical Nurse Specialist Family Health
DX: M79.18 Myalgia, other site (principal); M50.10 Cervical disc disorder with radiculopathy, unspecified cervical region; M96.1 Postlaminectomy syndrome, not elsewhere classified
CPT/HCPCS: 99213

== ENCOUNTER → 2019-03-06 11:34 | Outpatient (POV) | payer MEDICAID, SELFPAY ==
[2019-03-06 12:00] VITALS: BP 154/74; PULSE 77; RESP 18; O2SAT 98; BMI 32.9
--- NOTE | 2019-03-06 12:23 | P.CONS_ITS ---
[facility] Pain Management SOAP Note Subjective:: Patient is a pleasant 48-year-old white female who presents today for follow-up. Patient is having some increased pain and radiculopathy in her bilateral arms. She is also having a very difficult time sleeping at night due to her bed she is been sleeping in a recliner which has begun to hurt the rest of her body. She rates her pain a 7 out of 10 today. ROS General: no recent weight change, no fever, no sleep disturbances Respiratory: no cough, no shortness of air, no recurring pulmonary infections Cardiovascular/Peripheral Vascular: No chest pain, No palpitations, no edema, no shortness of breath. Gastrointestinal: no incontinence, normal bowel movements reported Genitourinary: no incontinence Musculoskeletal: Neck pain, bilateral arm pain Psychiatric: normal mood/ affect Neurological: [denies weakness in extremities], [denies balance issues] Objective:: Physical Exam General: Alert and oriented x3, no acute distress, pleasant and cooperative, [on room air] Lungs: Resps E/U, Symmetrical chest expansion, [CTA bilateral] Eyes: PERRL Musculoskeletal: Flexion and extension of cervical spine somewhat guarded secondary to pain, deep tendon reflexes normal, strength in upper and lower extremities [5/5], slightly antalgic gait noted Neurological: speech clear, business services representative equal, no gross sensory deficits Assessment:: Postlaminectomy syndrome cervical spine with cervical radiculopathy Plan:: We will start the patient on gabapentin 300 mg 1 p.o. nightly. Also order a hospital bed to help her with her sleeping at nighttime. I will follow-up with the patient in 2 weeks reassess her symptoms at that time she is going to be getting an MRI of her neck and her brain. Dr. Boyce has reviewed this note and agrees with this plan of care. This note was dictated using voice recognition software and may contain errors or omissions
== END ==
PROVIDERS: PCP Family Medicine; Visit Provider Clinical Nurse Specialist Family Health
DX: M96.1 Postlaminectomy syndrome, not elsewhere classified (principal); M54.12 Radiculopathy, cervical region
CPT/HCPCS: 99212

== ENCOUNTER → 2019-03-07 12:49 | Outpatient (CLI) | payer MEDICAID, SELFPAY ==
--- NOTE | 2019-03-07 12:54 | MR_ITS ---
MR head/brain wo/w con HISTORY: APHASIA, altered mental status, pain ITS.REASON: STATUS POST CERVICAL SPINE FUSION, APHASIA ORDERING PHYSICIAN: Gayla Galan MD PATIENT AGE: 48 years Comparison: 01/09/2013 TECHNIQUE: Standard multiplanar multiecho sequences are performed without and with gadolinium enhancement . FINDINGS: Has been prior suboccipital craniotomy. Postsurgical changes are present at the inferior occipital region as before. No midline shift, mass effect, intracranial hemorrhage, or hydrocephalus is evident. No evidence of acute infarction. No evidence of restricted diffusion no enhancing lesions are evident. The pituitary, optic chiasm, and corpus callosum have an unremarkable appearance. The cerebellopontine angles, cerebellum, and brainstem have an unremarkable appearance. There is some minimal opacification of the medial aspect of the left mastoid sinus with some increased signal intensity in this region not significant change from the previous exam. No sinus air-fluid level evident. IMPRESSION: 1. Overall no significant change with no acute finding compared to the previous exam. 2. Prior suboccipital craniotomy with postsurgical changes from that surgery
--- NOTE | 2019-03-07 12:55 | MR_ITS ---
MR cervical spine wo/w con, MR 3-d myelogram/MRCP HISTORY: PT states neck pain, Bilateral arm pain, numbness and tingling X Years. ITS.REASON: STATUS POST CERVICAL SPINE FUSION, APHASIA ORDERING PHYSICIAN: Gayla Galan MD PATIENT AGE: 48 years Comparison: MRI 08/25/17 TECHNIQUE: Standard multiplanar multiecho sequences are performed without and with gadolinium enhancement contrast. 3-D MIP and myelographic images are also rendered and reviewed FINDINGS: There are extensive postsurgical changes as before with suboccipital craniotomy and extensive posterior cervical laminectomy with removal of the posterior elements throughout the entire cervical spine through C7 once again noted. There has been prior anterior fusion at C5-C7 with extensive metallic artifact. There is reversal of cervical lordosis at the C4 level as before. C2-C3: Minimal anterior subluxation of C2 as before. C3-C4: Mild anterior subluxation of C3 once again noted of approximately 4 mm unchanged. Prominent atrophic 5 C3-C4 and C4-C5 with degenerative disc disease at C4-C5. C7-T1: Mild degenerative disc disease. Extensive artifact at C5-C6 and C6-C7 Decreased T1 and increased T2 signal involves the C7 vertebral body consistent with bone marrow edema. There is some mild enhancement of the C7 vertebral body as well this is nonspecific. No other abnormal areas of enhancement. IMPRESSION: 1. Extensive postsurgical changes with suboccipital craniotomy with extensive laminectomy throughout the cervical spine. Prior anterior cervical disc fusion at C5-C6 and C6-C7 2. Multilevel degenerative disc disease with postsurgical changes with cervical kyphosis overall stable compared to the previous exam 3. There is bone marrow edema within the C7 vertebral body which does show enhancement. As is of unknown etiology and could be related to underlying inflammatory change from the adjacent degenerative disc disease.
== END ==
PROVIDERS: PCP Family Medicine; Visit Provider Family Medicine
DX: M54.2 Cervicalgia (principal); Z98.1 Arthrodesis status
CPT/HCPCS: 70553; 72156; 76376; A9576

== ENCOUNTER → 2019-04-13 13:55 | Outpatient (CLI) | payer MEDICAID, SELFPAY | PROVIDERS: PCP Family Medicine; Visit Provider Urology | DX: R40.0 Somnolence (principal); R60.9 Edema, unspecified; I10 Essential (primary) hypertension | CPT/HCPCS: 95806 ==

== ENCOUNTER 2019-04-14 09:39 | Day surgery (SDC) | payer MEDICAID, SELFPAY ==
[2019-04-14 09:50] VITALS: BP 105/70; PULSE 71; RESP 18; TEMP 36.6; O2SAT 94; BMI 33.2
--- NOTE | 2019-04-14 10:18 | HMH.PMPROC ---
- Procedure Date: 04/14/19 Time: 10:18 Anesthesiologist:: Robert Boyce MD Complications:: None Pre-procedure Diagnosis:: Degenerative disease of lumbar spine with cervical radiculopathy symptoms and postlaminectomy syndrome of the cervical spine Post-procedure Diagnosis:: Same Indications for Procedure:: This patient is a pleasant 48-year-old white female who we are treating for neck pain and low back pain. She currently has an intrathecal Dilaudid pain pump in place. She is going at 1.4 mg/day. She is been doing very well with her pump. She is benefited from a previous cervical epidural steroid injection. Her pain is starting to return. We will do a repeat cervical epidural steroid injection today. We are awaiting approval for her spinal cord stimulator trial. Procedure Details:: Cervical epidural steroid injection under fluoroscopy Informed consent was obtained and the risks and benefits of the procedure was explained to the patient. The patient was taken to the procedure room placed prone on the procedure table. The neck was prepped using ChloraPrep. The skin and subcutaneous tissues were anesthetized using lidocaine. I placed a 18-gauge epidural needle into the C5-C6 interspace and advanced using [id number] to air and fluoroscopic guidance. After confirmation of needle placement in the epidural space with dye, I injected 3 mL's lidocaine 1.5% and Depo-Medrol 80 mg. The patient tolerated the procedure well with no complications. Plan and Disposition:: We will follow-up with her in 2 weeks. We will reevaluate her symptoms at that time. We continue to await approval for her spinal cord stimulator trial.
[2019-04-14 10:22] VITALS: BP 144/81; PULSE 74; RESP 18
[2019-04-14 10:23] VITALS: BP 145/80; PULSE 75; RESP 18; O2SAT 99
[2019-04-14 10:40] VITALS: BP 108/60; PULSE 63; RESP 18; O2SAT 96
== END 2019-04-14 10:40 | disposition home or self-care (01) ==
LOC: SC.PAINP 09:45
PROVIDERS: PCP Family Medicine; Visit Provider Anesthesiology
DX: M50.10 Cervical disc disorder with radiculopathy, unspecified cervical region (principal)
CPT/HCPCS: 62321; J1040; Q9966

== ENCOUNTER → 2019-05-01 15:47 | Outpatient (POV) | payer MEDICAID, SELFPAY ==
[2019-05-01 16:08] VITALS: BP 129/80; PULSE 85; RESP 18; O2SAT 98; BMI 33.9
--- NOTE | 2019-05-02 09:08 | HMH.PAINSOAP ---
[facility] Pain Management SOAP Note Subjective:: Patient is a pleasant 48-year-old white female who presents today for follow-up after insurance denial of neurostimulator. Patient and I had a discussion in regards to why it was denied. Patient insurance stated that she already had an intrathecal pain pump and did not need a stimulator. We discussed the difference in pain patterns and what each 1 treats and how they differentiate. Patient still interested in still moving forward with a neurostimulator we will try to contact the insurance to get a peer to peer. Patient is unable to have a relief in her neck due to the amount of hardware and surgical procedures that she has had. Patient had a successful neurostimulator trial however the leads were not able to be placed. We would like to do subcutaneous neuro stimulation which she is interested in. Patient does have an intrathecal pain pump that works well with her lower back. Patient also has quite a bit of myofascial pain she is interested in doing trigger point injections she is gets 80% relief with these injections up to a month. She rates her pain today an 8 out of 10 ROS General: no recent weight change, no fever, no sleep disturbances Respiratory: no cough, no shortness of air, no recurring pulmonary infections Cardiovascular/Peripheral Vascular: No chest pain, No palpitations, no edema, no shortness of breath. Gastrointestinal: no incontinence, normal bowel movements reported Genitourinary: no incontinence Musculoskeletal: Back pain, neck pain, myofascial pain Psychiatric: normal mood/ affect Neurological: [denies weakness in extremities], [denies balance issues] Objective:: Physical Exam General: Alert and oriented x3, no acute distress, pleasant and cooperative, [on room air] Lungs: Resps E/U, Symmetrical chest expansion, Eyes: PERRL Musculoskeletal: Flexion and extension of cervical and lumbar spine somewhat guarded secondary to pain, deep tendon reflexes normal, strength in upper and lower extremities [5/5], slightly antalgic gait noted, trigger points noted cervical paraspinous and trapezius. Neurological: speech clear, supervisor wool shearing equal, no gross sensory deficits Assessment:: Degenerative disc disease lumbar spinal cervical postlaminectomy syndrome and cervical radiculopathy, myofascial pain Plan:: We will schedule trigger point injections for the patient. We will move forward with a peer to peer for her neurostimulator. I will see the patient at her trigger point injection she is been instructed to call the office if she has any issues prior to her next appointment. Dr. Boyce has reviewed this note and agrees with this plan of care. This note was dictated using voice recognition software and may contain errors or omissions
== END ==
PROVIDERS: PCP Family Medicine; Visit Provider Clinical Nurse Specialist Family Health
DX: M51.36 Other intervertebral disc degeneration, lumbar region (principal); M96.1 Postlaminectomy syndrome, not elsewhere classified; M79.18 Myalgia, other site; M54.12 Radiculopathy, cervical region
CPT/HCPCS: 62368; 99212

== ENCOUNTER → 2019-06-05 12:54 | Outpatient (POV) | payer MEDICAID, SELFPAY ==
[2019-06-05 13:09] VITALS: BP 148/87; PULSE 80; RESP 18; O2SAT 98; BMI 33.0
--- NOTE | 2019-06-05 13:36 | HMH.PAINSOAP ---
[facility] Pain Management SOAP Note Subjective:: Patient is a pleasant 48-year-old white female who presents today for follow-up. The patient is being treated for low back pain with radiculopathy, neck pain with radiculopathy and myofascial pain. Patient has an intrathecal pain pump. She is also interested in a neurostimulator, but was denied per her insurance recently. Patient also has complaints today of lower extremity pain. She complains that her feet are burning and tingling along with burning and tingling of her hands. She says that she is having increased swelling to her hands and feet along with temperature changes. The pain worsens with ambulation. She says she is unable to do normal activities due to the swelling in her hands. The patient says that she would still like to pursue a neurostimulator. Patient is also complaining of left hip pain. She says that it is worse with ambulation, as well. She rates her pain an 8 out of 10 today. Review of Systems General: No recent weight changes, no fever, no sleep disturbances Respiratory: No cough, no shortness of air, no recurring pulmonary infections Cardiovascular/peripheral vascular: No chest pain, no palpitations, no edema, no shortness of breath Gastrointestinal: No new onset incontinence, normal bowel movements reported Genitourinary: No new onset incontinence Musculoskeletal: Neck and back pain Psychiatric: Normal mood/affect Neurological: [Denies weakness in extremities], [denies balance issues] Objective:: Physical exam General: Alert and oriented x3, no acute distress, pleasant and cooperative, [on room air] Lungs: Respirations even and unlabored, symmetrical chest expansion Eyes: PERRL Musculoskeletal: Flexion and extension of cervical and lumbar spine somewhat guarded secondary to pain, deep tendon reflexes normal, strength in upper and lower extremities [5/5], [abnormal gait noted] Neurological: Speech clear, pneumatic tool operator equal, no gross sensory deficit Assessment:: Degenerative disc disease lumbar spine with lumbar radiculopathy, cervical postlaminectomy syndrome, cervical radiculopathy, myofascial pain, left greater trochanteric bursitis Plan:: He will schedule the patient for a left greater trochanteric bursa injection. We will also try to move forward with the peer to peer for her stimulator. We will see the patient back after her procedure and reassess her symptoms at that time. She is been instructed to call the office if she has any concerns prior to her next appointment. Dr. Boyce has reviewed this note and agrees with this plan of care. This note was dictated using voice recognition software and make contain errors or omissions.
== END ==
PROVIDERS: PCP Family Medicine; Visit Provider Clinical Nurse Specialist Family Health
DX: M51.16 Intervertebral disc disorders with radiculopathy, lumbar region (principal); M96.1 Postlaminectomy syndrome, not elsewhere classified; M79.18 Myalgia, other site; M54.12 Radiculopathy, cervical region; M70.62 Trochanteric bursitis, left hip
CPT/HCPCS: 99212

== ENCOUNTER → 2019-06-05 13:47 | Outpatient (CLI) | payer MEDICAID, SELFPAY ==
--- NOTE | 2019-06-05 13:48 | MR_ITS ---
MR foot RT wo/w con Ordering Physician: Gissell Parker DPM Patient Age: 48 years: Female HISTORY: ITS.REASON: b/l plantar fasciitis,b/l achilles tendonitis Plantar fasciitis and Achilles tendinitis TECHNIQUE: MRI OF THE RIGHT FOOT Multiplanar multisequence imaging pre and postcontrast at the ankle . 19 mL ProHance IV contrast utilized for the postcontrast image sets. At both ankle and foot Patient was in significant pain on initial 06/05/2019 scanning sessions; and could not tolerate the entire exam and thus returned returned on 06/13/2019 for post contrast imaging right foot. Left foot was also scanned on 723 COMPARISON : No prior studies right foot MRI of contralateral left foot 06/13/2019 & MRI of left foot 07/06/2018 FINDINGS This MR foot study included the forefoot & distal most tarsals. Is reviewed in conjunction with the right ankle 06/05/2019 . It is also It is compared to the contralateral left foot MRI 06/13/2019. The right forefoot appears intact the. Metatarsals intact. Distal most tarsals and tarsometatarsal-metatarsal joint intact. MTP joints intact... Toes are intact with no prominent findings. There is some upper normal signal seen soft tissues about the base the toes on axial image set, but I believe this is merely field inhomogeneity on this short bore MRI scanner. Upper normal, to scant scant increased fluid signal noted overlying the dorsal aspect of first MTP joint. Sagittal image 23)-evident here at the right foot more so than left. . Scant fluid signal just inferior to the head of the proximal phalanx great toe noted but it is not felt to be of significance, seen bilaterally. The joint spaces appear well-maintained throughout the toes with no No erosions evident IMPRESSION: ......... . MRI of the forefoot and distal tarsal-no prominent findings. Only question some scant increased fluid at the dorsal aspect of first MTP joint . Otherwise unremarkable
--- NOTE | 2019-06-05 13:48 | MR_ITS ---
MR ankle RT wo/w con, MR foot RT wo/w con Ordering Physician: Gissell Parker DPM Patient Age: 48 years: Female HISTORY: ITS.REASON: b/l plantar fasciitis,b/l achilles tendonitis Plantar fasciitis Achilles tendinitis and pain one year pain at the medial side of ankle. TECHNIQUE: MRI OF THE RIGHT ANKLE; Multiplanar multisequence imaging pre and postcontrast at the ankle . 19 mL ProHance IV contrast utilized for the postcontrast image sets. At both ankle and foot Postcontrast imaging in the axial and sagittal and coronal plane Patient was in significant pain on initial 06/05/2019 scanning sessions; and could not tolerate the entire exam and thus returned returned on 06/13/2019 for post contrast imaging right foot. Left foot was also scanned on COMPARISON :Right ankle radiograph August 2011. Left ankle and foot MRI from 06/13/2019 MRI OF THE RIGHT ANKLE Medial ankle::. No edema or focal findings overlying the medial malleolus Only note Upper normal signal at the tibialis posterior tendon near its insertion upon the navicular. Nonspecific. Some of this is due to magic angle artifact but there could be some minor tendinopathy here. Otherwise flexor digitorum longus and flexor hallucis longus tendons appear intact. Lateral ankle: the peroneus tendons appear intact. Anterior and posterior ligaments appear intact Subtalar joint Suggestion of perhaps scant increased fluid subtalar joint, most evident laterally but also extends medially and surrounding what is most likely intact spring ligament, difficult to visualize Ankle mortise appears intact. Cartilage here well-maintained. No osteochondral defects. Dome of talus intact.Talonavicular joint intact Slight increased fluid along posterior aspect of the ankle joint & surrounding the os trigonum here. Suggestion of enhancement this region could reflect some minor localized inflammation Postcontrast images show no focal areas of significant prominent enhancement.-There is some mild enhancement throughout region of noted plantar fasciitis and perhaps towards right heel pad beneath this area as discussed below Findings of Plantar Fasciitis*: Long thin plantar calcaneal spur.-10 mm length with increased bone signal/bone edema within it on T2/water weighted images reflecting reactive bone changes. Scant edema signal is suggested along inferior aspect of this plantar calcaneal spur.. Appears to be enlargement, & increased signal throughout the plantar aponeurosis as it approaches these plantar calcaneal spur -reflecting Plantar Fasciitis. This particularly medial component of the plantar aponeurosis. Specifically note Suggestion of Slight meek & increased signal meek signal coronal 22- 24.along the main portion of the plantar aponeurosis.. Perhaps scant central fluid signal within the plantar aponeurosis on coronal slice 23... The sagittal images through this region also nicely demonstrate the what appears to be edematous enlargement plantar aponeurosis.-It should be thin and homogeneously dark signal on the sagittal view.Mild heel pad edema beneath this area Midfoot and distal be plantar aponeurosis appears smooth. No nodularity. No fibromas. Achilles tendon overall appears intact.. Only on the most superior images of Achilles tendon question some very minor subtle edema in the fat just anterior to the Achilles tendon near the myotendinous junction. This area resides at least 8cm above the insertion Achilles tendon upon the calcaneus. Clinical correlation required. IMPRESSION: -- MRI RIGHT ANKLE.---- 1. Plantar Fasciitis Findings: Enlargement, edema and inflammation suggested at the plantar aponeurosis as it approaches insertion. Associated reactive bone edema within a Long thin plantar calcaneal spur
== END ==
PROVIDERS: PCP Family Medicine; Visit Provider Podiatrist
DX: M72.2 Plantar fascial fibromatosis (principal); M76.61 Achilles tendinitis, right leg; M76.62 Achilles tendinitis, left leg
CPT/HCPCS: 73720; 73723

== ENCOUNTER → 2019-06-13 12:51 | Outpatient (CLI) | payer MEDICAID, SELFPAY ==
--- NOTE | 2019-06-13 12:55 | MR_ITS ---
MR foot LT wo/w con CLINICAL INDICATION: ITS.REASON: b/l plantar fasciitis,b/l achilles tendonitis ORDERING PHYSICIAN: Gissell Parker DPM PATIENT AGE: 48 years Comparison: None FINDINGS: Signal from the osseous marrow elements appear normal. At the level of the tarsal area there is subtle increased T2 signal with associated enhancement related to the deeper portion of the abductor hallux muscle. There may be some very subtle surrounding soft tissue enhancement in this area as well. The remainder of the signal of the muscles appear to be normal. Visualized tendons and ligaments appear to be intact. Most of the plantar aponeurosis near the calcaneus area was imaged on the MRI of the ankle. IMPRESSION: Although nonspecific there is some inflammatory reaction related to the deep portion of the abductor hallucis muscle. No other acute process.
--- NOTE | 2019-06-13 12:55 | MR_ITS ---
MR ankle LT wo/w con CLINICAL INDICATION: ITS.REASON: b/l plantar fasciitis,b/l achilles tendonitis ORDERING PHYSICIAN: Gissell Parker DPM PATIENT AGE: 48 years Comparison: None FINDINGS: Alignment, joint spaces and signal from the osseous marrow elements appear normal. The anterior and posterior tibiofibular and talofibular ligaments appear to be intact. Achilles tendon size is normal and just distal to the musculotendinous junction there is a very short horizontal linear focus of increased signal along the medial aspect of the Achilles tendon. This is approximately 4.1 mm in length. Remainder of the tendon is of normal caliber and signal. There is a plantar calcaneal spur however there is no definite increased T2 signal involving the plantar aponeurosis. There is some very subtle enhancement within the soft tissues medial to the medial cortex of the talus. The low signal of the anterior, lateral and medial tendons appear intact. There is 90 small amount of fluid partially surrounding the posterior tibialis tendon and small amount around the flexor hallux longus longus tendon however the hallux longus tendon 20% of the time can communicate with the tibiotalar joint which could account for this fluid. There is a small joint effusion. The fat signal within the sinus tarsi area appears to be normal. IMPRESSION: Possible horizontal linear subtle partial tear of the medial side of the Achilles tendon near the musculotendinous junction. Borderline mild tenosynovitis of the posterior tibialis tendon and possibly flexor hallux longus tendon although this could be related to the small joint effusion which can communicate with the hallux longus tendon. There is no abnormal T2 signal to suggest inflammation at the plantar aponeurosis. Possible mild nonspecific inflammation in the soft tissues medial to the talus.
== END ==
PROVIDERS: PCP Family Medicine; Visit Provider Podiatrist
DX: M72.2 Plantar fascial fibromatosis (principal); M76.61 Achilles tendinitis, right leg; M76.62 Achilles tendinitis, left leg
CPT/HCPCS: 73720; 73723; A9576

== ENCOUNTER → 2019-06-23 10:10 | Outpatient (CLI) | payer MEDICAID, SELFPAY ==
--- NOTE | 2019-06-23 | NVE_ITS ---
Venous Exam Indications: 729.5 Pain in limb. IMPRESSIONS 1. There is no evidence of significant Reflux. 2. No evidence of deep or superficial vein thrombosis involving the left lower extremity Left lower extremity venous duplex evaluation. Doppler flow study including spectral analysis, color and meek scale imaging. Location: Vascular laboratory. Patient status: Outpatient. Tables: Venous flow and imaging: + +-------+ + Location Overall Flow properties + +-------+ + Left common femoral Patent Normal phasicity; spontaneous; normal augmentation; compressible + +-------+ + Left saphenofemoral junction Patent Compressible + +-------+ + Left profunda femoral Patent Compressible + +-------+ + Left femoral Patent Normal phasicity; spontaneous; normal augmentation; compressible + +-------+ + Left greater saphenous Patent Normal phasicity; spontaneous; normal augmentation; compressible + +-------+ + Left popliteal Patent Normal phasicity; spontaneous; normal augmentation; compressible + +-------+ + Left posterior tibial Patent Compressible + +-------+ + Left peroneal Patent Compressible + +-------+ + Left gastrocnemius Patent Compressible + +-------+ + Left soleal Patent Compressible + +-------+ + (Report amended ) Electronically signed by: Antwan Akhtar [id number]
--- NOTE | 2019-06-23 10:19 | US_ITS ---
US transvaginal HISTORY: ITS.REASON: PELVIC PAIN ORDERING PHYSICIAN: Gayla Galna MD PATIENT AGE: 48 years Comparison: Transvaginal ultrasound pelvis 10/09/2016 FINDINGS: UTERUS: The uterus measures 8.6 centers x 4.5 cm.. The endometrial echo is poorly visualized, the patient has had an ablation procedure since the previous exam. There are 3 possible fibroids within uterus largest measuring 3.1 x 3.3 x 2.8 cm which is basically isoechoic to the uterine echogenicity. There is a possible second isoechoic fibroid near the lower uterine segment measuring 2.5 x 1 .8x 2.2 cm. The other possible fibroid is too small to characterize and may fact be a uterine calcification measuring 0.6 x 0.5 x 0.8 cm. RIGHT OVARY: Measures 2.2 x 1.4 x 2.3 cm. LEFT OVARY: Measures 2.9 x 2.0 x 3.1 cm. CUL-DE-SAC FLUID: No cul-de-sac fluid apparent OTHER FINDINGS: None IMPRESSION: Normal-appearing ovaries, 2 and possibly 3 uterine fibroids as described endometrial echo at endometrial canal poorly evaluated and visualized possibly as a result of previous ablation procedure.
== END ==
PROVIDERS: PCP Family Medicine; Visit Provider Family Medicine
DX: R10.2 Pelvic and perineal pain (principal); R60.0 Localized edema
CPT/HCPCS: 76830; 93971

== ENCOUNTER → 2019-07-05 13:01 | Outpatient (CLI) | payer MEDICAID, SELFPAY ==
--- NOTE | 2019-07-05 13:07 | CA_ITS ---
APPROVED REPORT EXAM: Comprehensive 2D, Doppler, and color-flow Echocardiogram Archery Instructor: Ernestina Izaguirre RDCS Ht: 5 ft 6 in Wt: 209lbs BSA: 2.04 BP: 121/80 mmHg Indications: SOA CP HTN OBESITY HLP Left Ventricle Left atrium is mildly enlarged, left ventricle is normal size, there is no concentric left ventricular hypertrophy, visually estimated ejection fraction 55% with no regional wall motion abnormality. Grade 1 diastolic dysfunction seen with tissue Doppler evidence of raise left atrial pressure. Right Ventricle Right atrium and right ventricular mildly enlarged with normal contractility. Aortic Valve Aortic valve is minimally thickened and fibrosed, there is no aortic stenosis aortic insufficiency. Mitral Valve Mitral valve is grossly normal, there is mild mitral regurgitation Tricuspid Valve Tricuspid valve is structurally normal, there is mild tricuspid regurgitation, tricuspid regurgitation jet velocity is inadequate for calculation of the right ventricular systolic pressure. Pulmonic Valve Pulmonic valve is poorly visualized. Great Vessels Aortic root is normal size. Pericardium No significant pericardial effusion noted. 2D Dimensions LVOT 1.80 cm (M/F) 1.5-2.5 M-Mode Dimensions RVDd 2.30 cm (0.9-2.6) LA Diam 3.80 cm (1.9-4.0) LVDd 4.60 cm (3.5-5.7) Ao Diam 2.60 cm (2.0-3.7) LVDs 3.00 cm (3.5-5.7) AV Cusp 1.90 cm (1.5-2.6) IVSd 0.80 cm (0.6-1.1) PWd 0.80 cm (0.6-1.1) EF (Teich) 64.00% FS 34.80% EDV (Teich) 97.30 mL ESV (Teich) 35.00 mL LV Diastology E/A Ratio 0.8 MED E' 4.00 (< 7 cm/sec) E'/MED E' Ratio 13.20 (>14) LAT E' 5.36 (<10 cm/sec) E/LAT E' Ratio 9.90 (>14) Mitral Valve MV E Max Eusebio. 52.80 (40-130 cm/s) MV A Velocity 66.10 (40-130 cm/s) E/A Ratio 0.80 Conclusion 1. Mildly low left atrium, normal left ventricular size, visually estimated ejection fraction 55% with no regional wall motion abnormality, grade 1 diastolic dysfunction seen with tissue Doppler evidence of raise left atrial pressure. 2. Mild mitral and tricuspid regurgitation 3. No significant pericardial effusion noted. Electronically signed by : Sanchez Blanchard, 07/07/2019 13:20:34
--- NOTE | 2019-07-05 13:09 | US_ITS ---
APPROVED REPORT Construction Checker: Ernestina Izaguirre RDCS Indications Claudication: Rest Pain: Risk Factors Hypertension Obesity Findings R LIONEL 1.2 L LIONEL 1.2 R TBI .8 L TBI .8 Conclusion The ABIs and TBIs are within normal limits Electronically signed by : Antwan Akhtar MD 07/06/2019 07:57:17
== END ==
PROVIDERS: PCP Family Medicine; Visit Provider Internal Medicine
DX: R06.09 Other forms of dyspnea (principal); R07.9 Chest pain, unspecified; I73.9 Peripheral vascular disease, unspecified; M79.606 Pain in leg, unspecified
CPT/HCPCS: 93306; 93923

== ENCOUNTER → 2019-07-10 13:55 | Outpatient (CLI) | payer MEDICAID, SELFPAY ==
--- NOTE | 2019-07-10 14:03 | XR_ITS ---
PROCEDURE: XR CHEST 2V CLINICAL HISTORY: dyspnea Shortness of breath COMPARISON: CTAC CTA-CHEST from 10/07/2015 CXR2V XR chest 2V from 02/04/2018 CXR1VP XR chest portable from 03/30/2018 CXR2V XR chest 2V from 04/28/2018 FINDINGS: The cardiomediastinal silhouette and pulmonary vascularity are within normal limits.Calcified granuloma left upper lobeno acute bony abnormalities. IMPRESSION: No change with no acute finding Dictated by: Antwan Akhtar MD 07/10/2019 14:26 Signed by: <Electronically signed by Antwan Akhtar MD in [place]> 07/10/2019 14:27
== END ==
PROVIDERS: PCP Family Medicine; Visit Provider Internal Medicine
DX: M79.604 Pain in right leg (principal); R06.09 Other forms of dyspnea; R68.3 Clubbing of fingers; R60.9 Edema, unspecified; E78.49 Other hyperlipidemia; I10 Essential (primary) hypertension; R40.0 Somnolence
CPT/HCPCS: 71046

== ENCOUNTER → 2019-08-31 14:38 | Outpatient (CLI) | payer MEDICAID, SELFPAY ==
[2019-08-31 15:30] VITALS: PULSE 70
== END ==
PROVIDERS: PCP Family Medicine; Visit Provider Family Medicine
DX: R06.02 Shortness of breath (principal)
CPT/HCPCS: 94060; 94640; 94727; 94729

== ENCOUNTER → 2019-09-14 09:00 | Outpatient (CLI) | payer MEDICAID, SELFPAY ==
--- NOTE | 2019-09-14 09:04 | FL_ITS ---
PROCEDURE: FL UPPER GI ESOPHAGUS W/AIR CLINICAL INDICATION: Abdominal pain, COMPARISON: No exams were available for comparison TECHNIQUE: FLUOROSCOPY TIME : 1 minutes 31 seconds FINDINGS: The esophagus has an unremarkable appearance. There has been prior fusion at C5-C6 and C7 with anterior bone plate present. No esophageal impingement apparent. There is kyphosis at the C4 level with prominent anterior osteophytes. The esophagus, stomach, and duodenum have an unremarkable appearance.There is no evidence of hiatal hernia. No ulcer or mass evident. No mucosal abnormalities apparent. There is normal peristalsis. The duodenal C-loop is nondisplaced. No hiatal hernia evident. No reflux demonstrated IMPRESSION: Unremarkable barium swallow and upper GI Dictated by: Antwan Akhtar MD 09/14/2019 15:34 Electronically signed by Antwan Akhtar MD in [place] 09/14/2019 15:34
== END ==
PROVIDERS: PCP Family Medicine; Visit Provider Internal Medicine
DX: K31.84 Gastroparesis (principal)
CPT/HCPCS: 74241

== ENCOUNTER → 2019-10-17 13:02 | Outpatient (POV) | payer OTHER, SELFPAY ==
[2019-10-17 13:23] VITALS: BP 135/89; PULSE 78; RESP 18; O2SAT 98; BMI 33.9
--- NOTE | 2019-10-17 13:41 | HMH.PMPROC ---
- Procedure Date: 10/17/19 Time: 13:41 Anesthesiologist:: Ninoska Castillo APRN Complications:: None Pre-procedure Diagnosis:: Degenerative disc disease lumbar spine with lumbar radiculopathy along with post laminectomy syndrome cervical spinal cervical radiculopathy Post-procedure Diagnosis:: Same Indications for Procedure:: Patient is a very pleasant 49-year-old white female who presents today for intrathecal pain pump refill and reprogram. She is currently on a Dilaudid infusion of 1. 5 4 mg of Dilaudid a day. She like a slight increase. She denies any side effects to the medication. [facility] #[id number] reviewed and appropriate. Urine drug screens have been appropriate. She had several epidurals which have been beneficial for her. Physical Exam General: Alert and oriented x3, no acute distress, pleasant and cooperative, [on room air] Lungs: Resps E/U, Symmetrical chest expansion, Eyes: PERRL Musculoskeletal: Flexion and extension of lumbar and cervical spine somewhat guarded secondary to pain, deep tendon reflexes normal, strength in upper and lower extremities [5/5], [abnormal gait noted] Neurological: speech clear, cooler servicer equal, no gross sensory deficits Procedure Details:: Informed consent was obtained and the risk and benefits of the procedure were explained to the patient. The patient was taken to the procedure room where noninvasive monitoring was placed including noninvasive blood pressure cuff and pulse oximeter. Patient's pump was interrogated and reprogrammed. The infusion rate was increased to 1.9 mg/day of Dilaudid. The patient tolerated the procedure well. Plan and Disposition:: I will see the patient back at her next intrathecal pain pump refill and reprogram she is been instructed to call the office if she has any issues prior to her next appointment. Dr. Boyce has reviewed this note and agrees with this plan of care. This note was dictated using voice recognition software and may contain errors or omissions
== END ==
PROVIDERS: PCP Family Medicine; Visit Provider Clinical Nurse Specialist Family Health
DX: M51.16 Intervertebral disc disorders with radiculopathy, lumbar region (principal); M96.1 Postlaminectomy syndrome, not elsewhere classified; M54.12 Radiculopathy, cervical region
CPT/HCPCS: 62368

== ENCOUNTER → 2019-10-31 10:19 | Outpatient (POV) | payer OTHER, SELFPAY ==
[2019-10-31 10:40] VITALS: BP 112/60; PULSE 72; RESP 18; O2SAT 99; BMI 34.2
--- NOTE | 2019-10-31 12:51 | HMH.PAINSOAP ---
[facility] Pain Management SOAP Note Subjective:: Patient is a pleasant 49-year-old white female presents today for follow-up. Patient is having some increased headaches and myofascial pain. She would like to restart her dry needling. She rates her pain today an 8 out of 10 she states she is been having headaches and been unable to get rid of them. Most of her pain is in her neck and also her low back and legs. She is interested in an epidural injection for her low back and leg pain. ROS General: no recent weight change, no fever, no sleep disturbances Respiratory: no cough, no shortness of air, no recurring pulmonary infections Cardiovascular/Peripheral Vascular: No chest pain, No palpitations, no edema, no shortness of breath. Gastrointestinal: no new onset incontinence, normal bowel movements reported Genitourinary: no new onset incontinence Musculoskeletal: Back pain, leg pain Psychiatric: normal mood/ affect, Neurological: [denies new onset weakness in extremities], [denies new onset balance issues] Objective:: Physical Exam General: Alert and oriented x3, no acute distress, pleasant and cooperative, [on room air] Lungs: Resps E/U, Symmetrical chest expansion, Eyes: PERRL Musculoskeletal: Flexion and extension of lumbar spine somewhat guarded secondary to pain, deep tendon reflexes normal, strength in upper and lower extremities [5/5], [abnormal gait noted] Neurological: speech clear, sheet roller operator equal, no gross sensory deficits Assessment:: Myofascial pain syndrome, degenerative disc disease lumbar spine with lumbar radiculopathy postlaminectomy syndrome cervical spinal cervical radiculopathy Plan:: We will set up an L4-L5 lumbar epidural steroid injection for the patient will also set up dry needling for her neck. We will start her on tramadol 50 mg 1 p.o. twice daily as needed. Patient's been instructed to call our office if she has any issues prior to her next appointment. I will follow-up with the patient after this reassess her symptoms at that time I will follow-up she is been instructed to call the office if she has any issues prior to her next appointment. Dr. Boyce has reviewed this note and agrees with this plan of care. This note was dictated using voice recognition software and may contain errors or omissions [facility] History I have reviewed the patient's past medical history: Yes Medical History: Reports:: Hyperlipidemia, Hypertension Denies:: Cancer, Diabetes Mellitus Type 1, Diabetes Mellitus Type 2, MRSA, Seizures *Have you ever received a pneumonia vaccine?: Yes *Have you received a flu vaccine this season?: Yes Other Medical History: Reports: Arthritis, Other. Denies: Blood Transfusion Reaction, Radiation Therapy Other Surgeries: Yes: No Previous Surgery, Cholecystectomy, Colonoscopy, , Other Amputation: No Fractures: No - *Social History Smoking Status: Never smoker Alcohol Intake: never Alcohol Intake Frequency:: other Substance Use Type: denies use *Occupational Status:: other Housing: house Household Members: significant other *Travel in the last 8 weeks: None Family Hx:: Cancer, Diabetes, Heart Attack, Hypertension, Thyroid Disorder
--- NOTE | 2019-10-31 12:55 | P.CONS_ITS ---
[facility] Pain Management SOAP Note Subjective:: Patient is a pleasant 49-year-old white female presents today for follow-up. Patient is having some increased headaches and myofascial pain. She would like to restart her dry needling. She rates her pain today an 8 out of 10 she states she is been having headaches and been unable to get rid of them. Most of her pain is in her neck and also her low back and legs. She is interested in an epidural injection for her low back and leg pain. ROS General: no recent weight change, no fever, no sleep disturbances Respiratory: no cough, no shortness of air, no recurring pulmonary infections Cardiovascular/Peripheral Vascular: No chest pain, No palpitations, no edema, no shortness of breath. Gastrointestinal: no new onset incontinence, normal bowel movements reported Genitourinary: no new onset incontinence Musculoskeletal: Back pain, leg pain Psychiatric: normal mood/ affect, Neurological: [denies new onset weakness in extremities], [denies new onset balance issues] Objective:: Physical Exam General: Alert and oriented x3, no acute distress, pleasant and cooperative, [on room air] Lungs: Resps E/U, Symmetrical chest expansion, Eyes: PERRL Musculoskeletal: Flexion and extension of lumbar spine somewhat guarded secondary to pain, deep tendon reflexes normal, strength in upper and lower extremities [5/5], [abnormal gait noted] Neurological: speech clear, medical office assistant equal, no gross sensory deficits Assessment:: Myofascial pain syndrome, degenerative disc disease lumbar spine with lumbar radiculopathy postlaminectomy syndrome cervical spinal cervical radiculopathy Plan:: We will set up an L4-L5 lumbar epidural steroid injection for the patient will also set up dry needling for her neck. We will start her on tramadol 50 mg 1 p.o. twice daily as needed. Patient's been instructed to call our office if she has any issues prior to her next appointment. I will follow-up with the patient after this reassess her symptoms at that time I will follow-up she is been instructed to call the office if she has any issues prior to her next appointment. Dr. Boyce has reviewed this note and agrees with this plan of care. This note was dictated using voice recognition software and may contain errors or omissions [facility] History I have reviewed the patient's past medical history: Yes Medical History: Reports:: Hyperlipidemia, Hypertension Denies:: Cancer, Diabetes Mellitus Type 1, Diabetes Mellitus Type 2, MRSA, Seizures *Have you ever received a pneumonia vaccine?: Yes *Have you received a flu vaccine this season?: Yes Other Medical History: Reports: Arthritis, Other. Denies: Blood Transfusion Reaction, Radiation Therapy Other Surgeries: Yes: No Previous Surgery, Cholecystectomy, Colonoscopy, C- section, Other Amputation: No Fractures: No - *Social History Smoking Status: Never smoker Alcohol Intake: never Alcohol Intake Frequency:: other Substance Use Type: denies use *Occupational Status:: other Housing: house Household Members: significant other *Travel in the last 8 weeks: None Family Hx:: Cancer, Diabetes, Heart Attack, Hypertension, Thyroid Disorder
--- NOTE | 2019-10-31 16:26 | PC.NURSE ---
TRAMADOL 50MG BID CALLED INTO [facility] WITH NO REFILLS
--- NOTE | 2019-11-13 11:58 | PC.NURSE ---
FADY 145MCG PO DAILY CALLED INTO [facility] PER PROVIDER ORDER WITH 3 REFILLS
== END ==
PROVIDERS: PCP Family Medicine; Visit Provider Clinical Nurse Specialist Family Health
DX: M79.18 Myalgia, other site (principal); M51.16 Intervertebral disc disorders with radiculopathy, lumbar region; M96.1 Postlaminectomy syndrome, not elsewhere classified
CPT/HCPCS: 99212

== ENCOUNTER → 2019-11-07 14:59 | Outpatient (CLI) | payer OTHER, SELFPAY | PROVIDERS: PCP Family Medicine; Visit Provider Internal Medicine | DX: R31.0 Gross hematuria (principal) ==

== ENCOUNTER → 2020-01-11 15:00 | Outpatient (CLI) | payer OTHER, SELFPAY ==
--- NOTE | 2020-01-11 15:07 | XR_ITS ---
PROCEDURE: XR FOOT WT BEARING LT 3V CLINICAL INDICATION: pain COMPARISON: No exams were available for comparison FINDINGS: No fracture or dislocation. No lytic or blastic change. There is normal mineralization. The joint spaces are well-preserved. No significant degenerative/arthritic changes. No erosive changes evident. Other findings:There is an approximately 7 millimeter degenerative plantar calcaneal spur. IMPRESSION: No acute findings. Dictated by: Harish Diane 01/11/2020 15:47 Electronically signed by Harish Diane in [place] 01/11/2020 15:47
--- NOTE | 2020-01-11 15:07 | XR_ITS ---
PROCEDURE: XR ANKLE WT BEARING LT MIN 3V CLINICAL INDICATION: pain COMPARISON: No exams were available for comparison FINDINGS: There is no acute fracture or dislocation. Ankle mortise is intact. Degenerative plantar calcaneal spur is noted IMPRESSION: No acute findings. Dictated by: Harish Diane 01/11/2020 15:48 Electronically signed by Harish Diane in [place] 01/11/2020 15:48
== END ==
PROVIDERS: PCP Family Medicine; Visit Provider Podiatrist
DX: M25.572 Pain in left ankle and joints of left foot (principal); M79.672 Pain in left foot
CPT/HCPCS: 73610; 73630

== ENCOUNTER 2020-04-16 13:12 | Day surgery (SDC) | payer OTHER, SELFPAY ==
[2020-04-16 13:20] VITALS: BP 152/77; PULSE 88; RESP 18; TEMP 36.4; O2SAT 88; BMI 32.8
--- NOTE | 2020-04-16 13:51 | HMH.PMPROC ---
- Procedure Date: 04/16/20 Time: 13:51 Anesthesiologist:: Ninoska Castillo APRN Complications:: None Pre-procedure Diagnosis:: Degenerative disc disease lumbar spine with lumbar radiculopathy cervical postlaminectomy syndrome and myofascial pain syndrome Post-procedure Diagnosis:: Same Indications for Procedure:: Patient is a very pleasant 49-year-old white female who presents today for intrathecal pain pump refill. Patient rates her pain today a 7 out of 10. She is also in need of trigger point injections. She gets good relief with these. We utilize dextrose instead of steroid. [facility] #[id number] reviewed and appropriate. Patient is on tramadol 50 mg 1 p.o. twice daily gabapentin 300 mg 1 p.o. 3 times daily. She denies side effects to medication. Urine drug screens have been appropriate. Physical Exam General: Alert and oriented x3, no acute distress, pleasant and cooperative, Lungs: Resps E/U, Symmetrical chest expansion, Eyes: PERRL Musculoskeletal: Flexion and extension of cervical and lumbar spine somewhat guarded secondary to pain, deep tendon reflexes normal, strength in upper and lower extremities [5/5], normal gait noted, trigger points noted in cervical paraspinous Neurological: speech clear, slide fasteners inspector equal, no gross sensory deficits Procedure Details:: Informed consent was obtained and the risk and benefits of the procedure were explained to the patient. The patient was taken to the procedure room where noninvasive monitoring was placed including noninvasive blood pressure cuff and pulse oximeter. Patient's pump was interrogated. The area over the pump was cleansed with chlorhexidine as a cleansing solution. In sterile fashion the pump was accessed with a 22-gauge needle. Approximately 6 mL's were removed of the pump solution and discarded appropriately. The pump was then refilled with 20 mL's of Dilaudid 10 mg/mL. The needle was withdrawn and a bandage was placed over the puncture site. The infusion rate was reprogrammed to continue at 2.4 mg/day. The patient tolerated the procedure well. We then moved onto cervical paraspinous trigger point injections Procedure: Informed consent was obtained and the risk and benefits of the procedure were explained to the patient. Patient was taken to the procedure room. Cervical paraspinous was prepped using ChloraPrep as a cleansing solution. Trigger points were palpated and marked. Each of these trigger points were injected with 3 mL's of dextrose 5%. 8 trigger points were injected with this. Bandages were placed over the injection sites. Patient tolerated the procedure well with no complications. Plan and Disposition:: See the patient her next intrathecal pain pump refill and reprogram she is been instructed to call the clinic if she has any issues prior to her next appointment. Dr. Boyce has reviewed this note and agrees with this plan of care. This note was dictated using voice recognition software and may contain errors or omissions
[2020-04-16 13:58] VITALS: BP 132/85; PULSE 82; RESP 18; TEMP 36.6; O2SAT 98
[2020-04-16 14:09] VITALS: BP 140/78; PULSE 88; RESP 18; O2SAT 99
[2020-04-16 14:25] VITALS: BP 150/89; PULSE 83; RESP 18; O2SAT 96
== END 2020-04-16 14:25 | disposition home or self-care (01) ==
LOC: SC.PAINP 13:14
PROVIDERS: PCP Family Medicine; Visit Provider Clinical Nurse Specialist Family Health
DX: M51.16 Intervertebral disc disorders with radiculopathy, lumbar region (principal); M96.1 Postlaminectomy syndrome, not elsewhere classified; M79.18 Myalgia, other site; Z88.1 Allergy status to other antibiotic agents; Z88.8 Allergy status to other drugs, medicaments and biological substances; E78.5 Hyperlipidemia, unspecified; I10 Essential (primary) hypertension; Z80.9 Family history of malignant neoplasm, unspecified; Z83.3 Family history of diabetes mellitus; Z82.49 Family history of ischemic heart disease and other diseases of the circulatory system
CPT/HCPCS: 20552; 95991

== ENCOUNTER → 2020-05-06 13:37 | Outpatient (CLI) | payer OTHER, SELFPAY ==
--- NOTE | 2020-05-06 13:50 | MR_ITS ---
PROCEDURE: MR CERVICAL SPINE WO CON CLINICAL INDICATION: CERVICAL PAIN Severe neck pain worse on the right with bilateral arm pain tingling and numbness COMPARISON: [facility] MR cervical spine wo/w con from 03/07/[address] cervical spine wo con from 05/04/2019 TECHNIQUE: Standard multiplanar multiecho sequences are performed without contrast. 3-D MIP and myelographic images are also rendered and reviewed FINDINGS: There are extensive postsurgical changes with suboccipital craniotomy and extensive posterior cervical laminectomy throughout the entire cervical spine. There is extensive artifact the from anterior cervical bone plate at C5-C6 and C7.. There is reversal of cervical lordosis with mild anterolisthesis of C2 on C3 of sub 3 mm. There is degenerative disc disease at C3-C4 with 3 mm anterolisthesis of C3. Prominent anterior marginal osteophyte noted at that level. Extensive artifact noted at C5-C6 and C7 obscuring the canal anteriorly. There is increased T1 and increased T2 signal involving the T1 vertebral body with degenerative disc disease at C7-T1 similar to the previous exam. There is kyphosis of the upper cervical spine. There is some mild flattening of the cord at the C3 and C4 level however, there is no canal stenosis. The flattening may be due to the kyphosis. This is unchanged IMPRESSION: Extensive postsurgical changes as described above overall not significantly changed compared to the previous exam Dictated by: Antwan Akhtar MD 05/07/2020 12:57 Electronically signed by Antwan Akhtar MD in [place] 05/07/2020 12:57
== END ==
PROVIDERS: PCP Family Medicine; Visit Provider Orthopaedic Surgery
DX: M54.2 Cervicalgia (principal)
CPT/HCPCS: 72141; 76376

== ENCOUNTER → 2020-05-13 16:01 | Outpatient (CLI) | payer OTHER, SELFPAY ==
--- NOTE | 2020-05-13 16:04 | MM_ITS ---
PROCEDURE: MM DIG SCREENING MAMM BI W/CAD DIGITAL BREAST TOMOSYNTHESIS INCLUDED Patient Age:49Y CLINICAL INDICATION: SCREENING: No hormones. No new complaints. Family history maternal aunt. Maternal cousin. COMPARISON: [facility] DIG MAMM-SCREEN VALDEMAR from 09/27/2014 [facility] DIG MAMM-DX UNI ADD VIEWS-RT from 10/11/2014 [facility] DIG MAMM-DX UNI ADD VIEWS-RT from 03/07/2015 [facility] DIG MAMM-SCREEN VALDEMAR from 05/15/2016 [facility] DIG MAMM-SCREEN VALDEMAR W/CAD from 08/04/2017 TECHNIQUE: Standard CC and MLO images were obtained. R2 CAD reviewed. Bilateral digital breast tomosynthesis included. Axillary CC views both breast included FINDINGS: Moderate breast density with fibroglandular elements most notable at throughout superior breast and towards upper-outer what the. No new dominant or suspicious mass: No suspicious calcifications. CAD highlights no areas of concern either. Right breast: Stable with no new areas of significant concern. Similar fibroglandular pattern versus 2016. Left breast: No new areas of significant concern. Bilateral follow-up 1 year are recommended. IMPRESSION: Stable mammogram. No new areas of concern identified Moderate breast density Bilateral follow-up 1 year BI-RAD Category: 2 Benign Finding(s) FOLLOW-UP: 1YR 1 Year Follow-up (A letter has been sent to the patient regarding results of the study.) Dictated by: Jorden Lund MD 05/15/2020 12:39 Electronically signed by Jorden Lund MD in [place] 05/15/2020 12:39
== END ==
PROVIDERS: PCP Family Medicine; Visit Provider Family Medicine
DX: Z12.31 Encounter for screening mammogram for malignant neoplasm of breast (principal)
CPT/HCPCS: 77063; 77067

== ENCOUNTER 2020-05-14 14:17 | Day surgery (SDC) | payer OTHER, SELFPAY ==
[2020-05-14 14:23] VITALS: BP 135/72; PULSE 65; RESP 18; TEMP 36.7; O2SAT 98; BMI 34.2
--- NOTE | 2020-05-14 14:32 | HMH.PMPROC ---
- Procedure Date: 05/14/20 Time: 14:32 Anesthesiologist:: Ninoska Castillo APRN Complications:: None Pre-procedure Diagnosis:: Myofascial pain syndrome Post-procedure Diagnosis:: Same Indications for Procedure:: Patient is a pleasant 49-year-old white female who presents today for trigger point injections utilizing dextrose. Patient is having headaches and myofascial pain in her cervical paraspinous area. We will inject bilateral cervical paraspinous and trapezius muscles. She gets 80% relief with this for several months. Physical Exam General: Alert and oriented x3, no acute distress, pleasant and cooperative, [on room air] Lungs: Resps E/U, Symmetrical chest expansion, Eyes: PERRL Musculoskeletal: Flexion and extension of cervical spine somewhat guarded secondary to pain, deep tendon reflexes normal, strength in upper and lower extremities [5/5], normal gait noted Neurological: speech clear, rotary furnace operator equal, no gross sensory deficits Procedure Details:: Procedure: Informed consent was obtained and the risk and benefits of the procedure were explained to the patient. Patient was taken to the procedure room. The lateral cervical paraspinous and trapezius muscles was prepped using ChloraPrep as a cleansing solution. Trigger points were palpated and marked. Each of these trigger points were injected with 3 mL's of dextrose 5% for A total of 10 trigger point injections. Bandages were placed over the injection sites. Patient tolerated the procedure well with no complications. Plan and Disposition:: Follow-up with the patient several weeks reassess her symptoms at that time she has been instructed to call the office if she has any issues prior to her next appointment. Dr. Boyce has reviewed this note and agrees with this plan of care. This note was dictated using voice recognition software and may contain errors or omissions
[2020-05-14 14:36] VITALS: BP 132/89; PULSE 85; RESP 18; O2SAT 99
[2020-05-14 14:37] VITALS: BP 140/85; PULSE 86; RESP 18; O2SAT 98
[2020-05-14 14:43] VITALS: BP 136/66; PULSE 61; RESP 18; O2SAT 98
== END 2020-05-14 14:46 | disposition home or self-care (01) ==
LOC: SC.PAINP 14:18
PROVIDERS: PCP Family Medicine; Visit Provider Clinical Nurse Specialist Family Health
DX: M79.18 Myalgia, other site (principal); Z88.0 Allergy status to penicillin; Z88.8 Allergy status to other drugs, medicaments and biological substances; Z88.2 Allergy status to sulfonamides; Z88.1 Allergy status to other antibiotic agents; M51.16 Intervertebral disc disorders with radiculopathy, lumbar region; M96.1 Postlaminectomy syndrome, not elsewhere classified; E78.5 Hyperlipidemia, unspecified; I10 Essential (primary) hypertension; M19.90 Unspecified osteoarthritis, unspecified site; Z90.49 Acquired absence of other specified parts of digestive tract; Z79.899 Other long term (current) drug therapy
CPT/HCPCS: 20552

== ENCOUNTER → 2020-05-23 09:19 | Outpatient (CLI) | payer OTHER, SELFPAY ==
--- NOTE | 2020-05-23 09:28 | XR_ITS ---
PROCEDURE: XR HAND RT MIN 3V CLINICAL INDICATION: PAIN COMPARISON: No exams were available for comparison FINDINGS: No fracture or dislocation. No lytic or blastic change. There is normal mineralization. The joint spaces are well-preserved. No significant degenerative/arthritic changes. No erosive changes evident. Other findings:None. IMPRESSION: No acute findings. Dictated by: Antwan Akhtar MD 05/23/2020 15:46 Electronically signed by Antwan Akhtar MD in [place] 05/23/2020 15:46
--- NOTE | 2020-05-23 09:28 | XR_ITS ---
PROCEDURE: XR HAND LT MIN 3V CLINICAL INDICATION: PAIN COMPARISON: No exams were available for comparison FINDINGS: No fracture or dislocation. No lytic or blastic change. There is normal mineralization. The joint spaces are well-preserved. No significant degenerative/arthritic changes. No erosive changes evident. Other findings:None. IMPRESSION: No acute findings. Dictated by: Antwan Akhtar MD 05/23/2020 15:46 Electronically signed by Antwan Akhtar MD in [place] 05/23/2020 15:46
== END ==
PROVIDERS: PCP Family Medicine; Visit Provider Internal Medicine Rheumatology
DX: M19.90 Unspecified osteoarthritis, unspecified site (principal)
CPT/HCPCS: 73130

== ENCOUNTER → 2020-06-03 13:58 | Outpatient (CLI) | payer OTHER, SELFPAY ==
--- NOTE | 2020-06-03 14:05 | CT_ITS ---
PROCEDURE: CT CHEST WO CON The the CLINICAL INDICATION: LUNG DISORDER Acute dyspnea, hypertension COMPARISON: ABDPELW CT ABD PELVIS W/ CONTRAST from 02/05/2017 TECHNIQUE: Axial images obtained with sagittal and coronal reformats. All CT scans at the facility use one or more dose reduction, viz: automated exposure control, ma/kV adjustment per patient size (including targeted exams where dose is matched to indication, i.e. head), or iterative reconstruction technique. High-resolution images also generated. FINDINGS: HEART AND MEDIASTINAL STRUCTURES: Unremarkable. LUNGS AND PLEURAL SPACES: There are scattered atelectatic or fibrotic changes in the right upper lobe, right lower lobe, and left lower lobe. There is a small dilated bronchus in the right upper lobe in the apical segment. There is patchy ground-glass attenuation in the right upper lobe medially. Calcified granuloma is present in the left upper lobe. Patchy ground-glass attenuation also noted within the left lower lobe. High-resolution images are obtained. No interlobular septal thickening apparent. No effusions. BONY STRUCTURES: No acute bony abnormalities apparent. UPPER ABDOMEN: Unremarkable. ADDITIONAL FINDINGS: No other significant abnormalities. IMPRESSION: There are scattered atelectatic or fibrotic changes with patchy ground-glass density in the right upper lobe and left lower lobe. Ground-glass attenuation is nonspecific and could be seen with inflammatory or infectious process. There is a small dilated bronchus in the apical segment of the right upper lobe. No interstitial or interlobular septal thickening. Dictated by: Antwan Akhtar MD 06/05/2020 07:16 Electronically signed by Antwan Akhtar MD in [place] 06/05/2020 07:16
== END ==
PROVIDERS: PCP Family Medicine; Visit Provider Nurse Practitioner Family
DX: Z01.818 Encounter for other preprocedural examination (principal)
CPT/HCPCS: 71250

== ENCOUNTER 2020-06-10 14:35 | Day surgery (SDC) | payer OTHER, SELFPAY ==
[2020-06-10 14:41] VITALS: BP 147/98; PULSE 77; RESP 18; TEMP 36.2; O2SAT 94; BMI 31.9
[2020-06-10 14:49] VITALS: BP 119/80; PULSE 68; RESP 18; O2SAT 98
[2020-06-10 15:11] VITALS: BP 120/85; PULSE 88; RESP 18; O2SAT 99
--- NOTE | 2020-06-10 15:28 | P.PCN_ITS ---
- Procedure Date: 06/10/20 Time: 15:28 Anesthesiologist:: Afia Alejandro APRN Complications:: None Pre-procedure Diagnosis:: Degenerative disc disease lumbar spine with lumbar radiculopathy symptoms, myofascial pain cervical paraspinous and upper trapezius muscles Post-procedure Diagnosis:: Same Indications for Procedure:: Patient is a 49-year-old white female who presents today for intrathecal pain pump refill and reprogram as well as trigger point injections to her cervical paraspinous and upper trapezius muscles. She rates her pain a 7 out of 10 today. Patient is currently managed with her intrathecal therapy at 2.4 mg/day of Dilaudid. She denies any side effects to the medication. She is having some neck pain with radiation into bilateral shoulders. We will perform bilateral report injections to see if she gets relief. She has had injections in the past and they gave her up to a percent relief for greater than 2 weeks. We will use dextrose only for her injections. She gets more relief with dextrose than with steroids. Physical exam General: Alert and oriented x3, no acute distress, pleasant and cooperative, [on room air] Lungs: Respirations even and unlabored, symmetrical chest expansion Eyes: PERRL Musculoskeletal: Flexion and extension of cervical and lumbar spine somewhat guarded secondary to pain, deep tendon reflexes normal, strength in upper and lower extremities [5/5], [abnormal gait noted] Neurological: Speech clear, scarf and anneal operator equal, no gross sensory deficit Procedure Details:: Informed consent was obtained and the risk and benefits of the procedure were explained to the patient. The patient was taken to the procedure room where noninvasive monitoring was placed including noninvasive blood pressure cuff and pulse oximeter. Patient's pump was interrogated. The area over the pump was cleansed with chlorhexidine as a cleansing solution. In sterile fashion the pump was accessed with a 22-gauge needle. Approximately 4 mL Mls of the pump solution was removed and discarded appropriately. The pump was then refilled with 20 mL's of Dilaudid 2 mg/mL. The needle was withdrawn and a bandage was placed over the puncture site. The infusion rate was reprogrammed at Dilaudid 2.4 mg/day. The patient tolerated well with no complication. Plan and Disposition:: We will plan to see the patient back in the clinic at her next intrathecal pain pump refill and reprogram. The patient's intrathecal pain pump port is noted to be the lateral aspect of her incision, and below the incision. The tip of the pump is medial to her spine. The patient and I specifically discussed risk factors for COVID19. These risks include, but are not limited to age greater than 60, heart or lung disease, diabetes, immunosuppression, and travel. We also discussed NSAIDs may worsen COVID19 infection or symptoms. Patient should not use NSAIDs to treat COVID19 signs or symptoms. Patient was also informed that any type of corticosteroid of any form (oral or injection) will decrease the patient's immune system response and may increase the likelihood of COVID19 [address] symptoms[address] Boyce has reviewed this note and agrees with this plan of care. This note was dictated using voice recognition software and make contain errors or omissions.
[2020-06-10 15:35] VITALS: BP 119/72; PULSE 63; RESP 18; O2SAT 94
== END 2020-06-10 15:35 | disposition home or self-care (01) ==
LOC: SC.PAINP 14:36
PROVIDERS: PCP Family Medicine; Visit Provider Clinical Nurse Specialist Family Health
DX: M51.16 Intervertebral disc disorders with radiculopathy, lumbar region (principal); M79.18 Myalgia, other site; M96.1 Postlaminectomy syndrome, not elsewhere classified; I10 Essential (primary) hypertension; E78.5 Hyperlipidemia, unspecified; Z90.49 Acquired absence of other specified parts of digestive tract; Z80.9 Family history of malignant neoplasm, unspecified; Z82.49 Family history of ischemic heart disease and other diseases of the circulatory system; Z83.49 Family history of other endocrine, nutritional and metabolic diseases; M72.2 Plantar fascial fibromatosis; M21.6X1 Other acquired deformities of right foot; M21.6X2 Other acquired deformities of left foot
CPT/HCPCS: 95991

== ENCOUNTER 2020-07-01 15:39 | Day surgery (SDC) | payer OTHER, SELFPAY ==
[2020-07-01 15:49] VITALS: BP 132/87; PULSE 73; RESP 18; TEMP 36.2; O2SAT 98; BMI 30.8
[2020-07-01 16:12] VITALS: BP 132/72; PULSE 85; RESP 18
[2020-07-01 16:24] VITALS: BP 133/78; PULSE 85; RESP 18; O2SAT 99
--- NOTE | 2020-07-01 16:34 | HMH.PMPROC ---
- Procedure Date: 07/01/20 Time: 16:34 Anesthesiologist:: Ninoska Castillo APRN Complications:: None Pre-procedure Diagnosis:: Myofascial pain syndrome Post-procedure Diagnosis:: Same Indications for Procedure:: Patient is a pleasant 49-year-old white female who presents today for trigger point injections of her cervical paraspinous and trapezius area along with her lumbar paraspinous area. Patient gets 80% relief with her trigger points for several months. She does have palpable trigger points in these areas. Physical Exam General: Alert and oriented x3, no acute distress, pleasant and cooperative, [on room air] Lungs: Resps E/U, Symmetrical chest expansion, Eyes: PERRL Musculoskeletal: Flexion and extension of cervical and lumbar spine somewhat guarded secondary to pain, deep tendon reflexes normal, strength in upper and lower extremities [5/5], antalgic gait noted Neurological: speech clear, review appraiser equal, no gross sensory deficits Procedure Details:: Procedure: Informed consent was obtained and the risk and benefits of the procedure were explained to the patient. Patient was taken to the procedure room. [] Was prepped using ChloraPrep as a cleansing solution. Trigger points were palpated and marked. Each of these trigger points were injected with 3 mL's of bupivacaine 0.25 and dextrose 5%. A total of 20 mL's were utilized 8 trigger points. Bandages were placed over the injection sites. Patient tolerated the procedure well with no complications. Plan and Disposition:: We will follow-up with the patient several weeks reassess her symptoms at that time she has been instructed to call the office if she has any issues prior to her next appointment. Dr. Boyce has reviewed this note and agrees with this plan of care. This note was dictated using voice recognition software and may contain errors or omissions
[2020-07-01 16:40] VITALS: BP 138/82; PULSE 73; RESP 18; O2SAT 98
== END 2020-07-01 16:40 | disposition home or self-care (01) ==
LOC: SC.PAINP 15:40
PROVIDERS: PCP Family Medicine; Visit Provider Clinical Nurse Specialist Family Health
DX: M79.18 Myalgia, other site (principal); I10 Essential (primary) hypertension; E78.5 Hyperlipidemia, unspecified; E07.9 Disorder of thyroid, unspecified; Z83.3 Family history of diabetes mellitus; Z82.49 Family history of ischemic heart disease and other diseases of the circulatory system; Z88.0 Allergy status to penicillin; Z88.1 Allergy status to other antibiotic agents; I73.9 Peripheral vascular disease, unspecified; G62.9 Polyneuropathy, unspecified; Z88.2 Allergy status to sulfonamides; Z79.899 Other long term (current) drug therapy
CPT/HCPCS: 20552

== ENCOUNTER 2020-07-19 14:26 | Emergency (ER) | payer OTHER, SELFPAY ==
[2020-07-19 14:48] VITALS: BP 154/86; PULSE 74; RESP 14; TEMP 36.6; O2SAT 100; BMI 31.1
--- NOTE | 2020-07-19 15:04 | HMH.EDUTC ---
[facility] [place] Disposition Clinical Impression: Parotiditis Disposition: Home, Self-Care Condition on Discharge: Good Instructions: Parotitis, DI for Parotitis-Adult Additional Instructions: Drink plenty of fluids. Take tylenol or ibuprofen for pain or fever. Take the medications as directed. Follow up with your regular doctor. GO TO THE ER FOR ANY WORSENING SYMPTOMS Prescriptions: predniSONE [Deltasone 10mg tablet] 10 mg PO BID 3 Days #6 tab Transmission Status: Received by [facility] # Nystatin [Nystatin Susp 500,000 Units/5mL Udc] 5 ml PO BID 7 Days #240 udc Transmission Status: Received by [facility] # Azithromycin [Z-Felix 250mg Tab*] 250 mg PO UD DOSE PK #6 tab Transmission Status: Received by [facility] # Referrals: Gayla Galan MD [Primary Care Provider] - Forms: Work/School Release Time of Disposition: 15:50 Medical Decision Making - Medical Records Medical records reviewed: No: I reviewed the patient's medical records. - George Inquiry Pt receiving controlled substance: No Vital Signs: 07/19/20 14:48 07/19/20 15:41 Temperature 98 F 98.0 F Temperature Source Oral Pulse Rate 74 Pulse Rate [Right Brachial] 74 Respiratory Rate 14 14 Blood Pressure 154/86 H Blood Pressure [Right Arm] 154/86 H Blood Pressure Mean [Right Arm] 108 Blood Pressure Source [Right Arm] Automatic Cuff Blood Pressure Position [Right Arm] Sitting 02 Sat by Pulse Oximetry 100 Oxygen Delivery Method Room Air - Lab Data Lab results reviewed: Yes: I reviewed the patient's lab results. Lab Results 07/19/20 15:10: Strep Scn Rapid Clinic Negative Orders (Tests/Meds): ED MEDICATIONS Discontinued Medications Generic Name Dose Route Start Last Admin Trade Name Freq PRN Reason Stop Dose Admin Methylprednisolone Sodium Succinate 125 mg 07/19/20 15:32 07/19/20 15:34 Solu-Medrol 125mg/2ml Vial IM 07/19/20 15:33 125 mg ONCE ONE Administration [facility] [place] HPI - General Stated complaint: face swelling Time Seen by Provider: 07/19/20 15:04 Mode of Arrival: Ambulatory Source of Information: Patient Limitations: No Limitations Description of Symptoms (Recalled from Triage Doc. by RN): PATIENT C/O SORE MOUTH AND TONGUE, FACIAL SWELLING, AND RIGHT EAR PAIN X 2 DAYS HEENT Symptoms (Recalled from RN notes): Yes Resp Symptoms (Recalled from RN notes): No Skin Symptoms (Recalled from RN notes): No MS Symptoms (Recalled from RN notes): No Functional Status (Recalled from RN notes): WNL - History of Present Illness Provider Complaint: She c/o 2 days of sore throat and tongue. She states that she feels like her tongue is swollen a little also. She denies any cough, congestion, or chest tightness. - Related Data Home Medications Medication Instructions Recorded Confirmed levothyroxine 137 mcg tablet 137 mcg PO DAILY tab 04/12/18 07/01/20 fenofibrate 160 mg tablet 160 mg PO DAILY #30 tab 06/22/19 07/01/20 Previous Rx's Medication Instructions Recorded diclofenac sodium 1 % topical gel 4 g TOPICAL QID PRN #30 g 06/24/20 Azithromycin [Z-Felix 250mg Tab*] 250 mg PO UD DOSE PK #6 tab 07/19/20 Nystatin [Nystatin Susp 500,000 5 ml PO BID 7 Days #240 udc 07/19/20 Units/5mL Udc] predniSONE [Deltasone 10mg tablet] 10 mg PO BID 3 Days #6 tab 07/19/20 Allergies Allergy/AdvReac Type Severity Reaction Status Date / Time niacin [NIACIN] Allergy Severe S-DIFF. Verified 07/01/20 15:51 BREATHING Penicillins [PENICILLINS] Allergy Intermediate I-HIVES Verified 07/01/20 15:51 ondansetron Allergy Mild ABD PAIN Verified 07/01/20 15:51 [From ZOFRAN ( HYDROCHLORIDE)] clindamycin Allergy Verified 07/01/20 15:51 metoclopramide [From Reglan] Allergy Verified 07/01/20 15:51 sulfamethoxazole Allergy Verified 07/01/20 15:51 [From Bactrim] trimethoprim [From Bactrim] Allergy Verified 07/01/20 15:51 vancomycin Allergy Hives Verifi
[2020-07-19 15:26] LABS: UTC Strep Screen (Rapid) Negative (Negative)
[2020-07-19 15:41] VITALS: BP 154/86; PULSE 74; RESP 14; TEMP 36.7; O2SAT 100
== END 2020-07-19 15:57 | disposition home or self-care (01) ==
PROVIDERS: Emergency Provider Nurse Practitioner Family; PCP Family Medicine
DX: K11.20 Sialoadenitis, unspecified (principal); E78.5 Hyperlipidemia, unspecified; I10 Essential (primary) hypertension; E03.9 Hypothyroidism, unspecified; G43.709 Chronic migraine without aura, not intractable, without status migrainosus; Q07.00 Arnold-Chiari syndrome without spina bifida or hydrocephalus; Z88.0 Allergy status to penicillin; Z88.5 Allergy status to narcotic agent; Z90.49 Acquired absence of other specified parts of digestive tract; Z90.710 Acquired absence of both cervix and uterus
CPT/HCPCS: 87880; 96372; 99202

== ENCOUNTER → 2020-08-08 13:43 | Outpatient (POV) | payer OTHER, SELFPAY ==
--- NOTE | 2020-08-08 14:06 | HMH.VVPMSO ---
[facility] Virtual Visit SOAP Consent for virtual visit:: With the recent concerns about the COVID-19, we are trying to minimize exposure to you by shifting to telehealth appointments whenever possible. It restricts me from seeing you in person, but the trade off is protecting you during this pandemic. Can you see and hear me okay, and do you consent to this option? If not, I would be happy to see if we can reschedule your appointment in the future, when feasible. Has patient consented to this virtual visit?: Yes Subjective:: This encounter was performed as telemedicine. The visit was performed via a secure to a video and audio to minimize risk and transmission of COVID19. Patient understands limitations of telemedicine visits which include inability to check reflexes, possibly missing subtle findings on the physical exam. Alternative options were presented to the patient and the patient did elect to proceed with the visit. The patient and I specifically discussed risk factors for COVID19. These risks include, but are not limited to age greater than 60, heart or lung disease, diabetes, immunosuppression, and travel. We also discussed NSAIDs may worsen COVID19 infection or symptoms. Patient should not use NSAIDs to treat COVID19 signs or symptoms. Patient was also informed that any type of corticosteroid of any form (oral or injection) will decrease the patient's immune system response and may increase the likelihood of COVID19 infection and symptoms. Patient is a 50-year-old white female who presents today for via health visit. Patient is complaining of severe neck pain that is worse with any type of movement. She says that she would like to try prednisone for a week. She is taken this in the past and it has given her relief. She says that it feels like knots in the back . Patient says that trigger point injections do give her some relief, however, she feels that this is different. She also says that she does not think that muscle relaxers would be beneficial to the area. She did have a day of prednisone at home left over from a previous prescription and she did take it and says that she did get relief. She would like to try a week of the medication see if it helps with her pain. Her pain a 9 out of 10 today. Review of Systems General: No recent weight changes, no fever, no sleep disturbances Respiratory: No cough, no shortness of air, no recurring pulmonary infections Cardiovascular/peripheral vascular: No chest pain, no palpitations, no edema, no shortness of breath Gastrointestinal: No new onset incontinence, normal bowel movements reported Genitourinary: No new onset incontinence Musculoskeletal: Neck pain Psychiatric: Normal mood/affect Neurological: [Denies weakness in extremities], [denies balance issues] Objective:: Constitutional: alert and oriented, no acute distress noted Psychiatric: Judgment and insight intact. Mood normal Respiratory: Nonlabored during conversation Assessment:: Myofascial pain, neck pain Plan:: We will order the patient prednisone 20 mg 1 tablet p.o. twice daily for 5 days. We will see her back in the clinic at her next intrathecal pain pump refill and reprogram. She has been instructed to contact clinic if she has any concerns before her next appointment. The patient and I specifically discussed risk factors for COVID19. These risks include, but are not limited to age greater than 60, heart or lung disease, diabetes, immunosuppression, and travel. We also discussed NSAIDs may worsen COVID19 infection or symptoms. Patient should not use NSAIDs to treat COVID19 signs or symptoms. Patient was also informed that any type of corticosteroid of any form (oral or injection) will decrease the patient's immune system response and may increase the likelihood of COVID19 infection and symptoms. And Time In:: 14:10 Time Out:: 14:10 [facility] History I have reviewed the patient's past medical
== END ==
PROVIDERS: Visit Provider Clinical Nurse Specialist Family Health
DX: M79.18 Myalgia, other site (principal); M54.2 Cervicalgia
CPT/HCPCS: 99212

== ENCOUNTER 2020-08-12 14:21 | Day surgery (SDC) | payer OTHER, SELFPAY ==
[2020-08-12 14:39] VITALS: BP 153/86; PULSE 75; RESP 19; TEMP 36.5; O2SAT 95; BMI 30.9
[2020-08-12 14:46] VITALS: BP 132/78; PULSE 85; RESP 18; O2SAT 99
--- NOTE | 2020-08-12 14:55 | HMH.PMPROC ---
- Procedure Date: 08/12/20 Time: 14:55 Anesthesiologist:: Ninoska Castillo APRN Complications:: None Pre-procedure Diagnosis:: Degenerative disc disease lumbar spine lumbar radiculopathy, postlaminectomy syndrome cervical spine Post-procedure Diagnosis:: Same Indications for Procedure:: Patient is a pleasant 50-year-old white female who presents today for intrathecal pain pump refill and reprogram. Patient is currently on a hydromorphone intrathecal infusion. She has severe muscle spasms. She is tried and failed Flexeril, tizanidine. We discussed starting on Robaxin we will start her at 500 mg 1 p.o. 3 times daily. Patient denies side effects from medication. [facility] #[id number] reviewed and appropriate. Patient does not need any changes to her pump today. She rates her pain today 6 out of 10 Physical Exam General: Alert and oriented x3, no acute distress, pleasant and cooperative, [on room air] Lungs: Resps E/U, Symmetrical chest expansion, Eyes: PERRL Musculoskeletal: Flexion and extension of cervical and lumbar spine somewhat guarded secondary to pain, deep tendon reflexes normal, strength in upper and lower extremities [5/5], [abnormal gait noted] Neurological: speech clear, radiotelegraph operator servicer equal, no gross sensory deficits Procedure Details:: Informed consent was obtained and the risk and benefits of the procedure were explained to the patient. The patient was taken to the procedure room where noninvasive monitoring was placed including noninvasive blood pressure cuff and pulse oximeter. Patient's pump was interrogated. The area over the pump was cleansed with chlorhexidine as a cleansing solution. In sterile fashion the pump was accessed with a 22-gauge needle. Approximately 4 mL's were removed of the pump solution and discarded appropriately. The pump was then refilled with 20 mL's of hydromorphone 10 mg/mL. The needle was withdrawn and a bandage was placed over the puncture site. The infusion rate was reprogrammed to continue at 2.4 mg/day. The patient tolerated the procedure well. Plan and Disposition:: Patient back at her next intrathecal pain pump refill and reprogram. We will start her on Robaxin 500 mg 1 p.o. 3 times daily. I will follow-up with her after this reassess her symptoms at that time she has been instructed to call the office if she has any issues prior to her next appointment. Dr. Boyce has reviewed this note and agrees with this plan of care. This note was dictated using voice recognition software and may contain errors or omissions
[2020-08-12 15:05] VITALS: BP 125/78; PULSE 84; RESP 18; O2SAT 98
[2020-08-12 15:27] VITALS: BP 150/90; PULSE 75; RESP 20; O2SAT 96
== END 2020-08-12 15:28 | disposition home or self-care (01) ==
LOC: SC.PAINP 14:23
PROVIDERS: PCP Family Medicine; Visit Provider Clinical Nurse Specialist Family Health
DX: M51.16 Intervertebral disc disorders with radiculopathy, lumbar region (principal); M96.1 Postlaminectomy syndrome, not elsewhere classified; F41.9 Anxiety disorder, unspecified; F32.9 Major depressive disorder, single episode, unspecified; Z90.49 Acquired absence of other specified parts of digestive tract; Z88.0 Allergy status to penicillin; Z88.1 Allergy status to other antibiotic agents; Z88.2 Allergy status to sulfonamides; Z88.8 Allergy status to other drugs, medicaments and biological substances; Z79.899 Other long term (current) drug therapy
CPT/HCPCS: 95991

== ENCOUNTER → 2020-08-22 16:01 | Outpatient (CLI) | payer OTHER, SELFPAY ==
--- NOTE | 2020-08-22 16:05 | MR_ITS ---
PROCEDURE: MR FEMUR LT WO CON CLINICAL INDICATION: MUSCLE WEAKNESS, SKIN THICKENING SWELLING ON MEDIAL ASPECT OF KNEE AND THIGH X1YR. NO INJURY. TENDER OF MEDIAL ASPECT OF THIGH BUT WORSE AROUND KNEE. PRIOR MRI HIP 02-23-18 COMPARISON: MR HIPLTWO MR hip LT wo con from 02/23/2018 TECHNIQUE: Routine multiplanar multi echo sequences are performed without gadolinium enhancement. FINDINGS: No soft tissue mass. No muscle mass. No abnormal fluid collections. No bony anomalies apparent. There are some mildly prominent varicose veins along the medial aspect of the thigh and at the knee. No abscess. There is a small knee joint effusion.. There appears to be a 2 cm left ovarian cyst. There may also be a 2.5 cm left uterine fibroid. Pelvic ultrasound may provide further evaluation. IMPRESSION: 1. Mildly prominent varicosities in the medial aspect of the mid and distal thigh and at the knee otherwise negative MRI of the left femur 2. Possible left ovarian cyst and uterine fibroid which may be better evaluated with pelvic ultrasound if clinically warranted. Dictated by: Anwtan Akhtar MD 08/26/2020 09:06 Antwan Akhtar MD in [place] 08/26/2020 09:06
== END ==
PROVIDERS: PCP Family Medicine; Visit Provider Internal Medicine Rheumatology
DX: R74.8 Abnormal levels of other serum enzymes (principal); M62.519 Muscle wasting and atrophy, not elsewhere classified, unspecified shoulder; R23.4 Changes in skin texture
CPT/HCPCS: 73718

== ENCOUNTER → 2020-08-27 15:33 | Outpatient (CLI) | payer OTHER, SELFPAY ==
--- NOTE | 2020-08-27 15:33 | MR_ITS ---
PROCEDURE: MR ANKLE RT WO CON CLINICAL INDICATION: pain, posterior tibialis tendinitis medial sided ankle pain [id number]. no injury. pain worse when standing and walking. pain when bending and extending. prior mri 06-13-19 TECHNIQUE: Routine multiplanar multi echo sequences are performed without gadolinium enhancement. FINDINGS: No bone marrow edema evident. The tibiofibular ligaments and posterior tibiofibular ligament appears intact. There is thinning of the ATFL suggesting partial tear or sprain. PT FL is intact. The deltoid ligaments are intact. There is an os trigonum present with fluid around the os trigonum. The tibialis posterior, flexor digitorum longus, flexor hallucis longus, and peroneal tendons appear intact. The Achilles tendon appears intact. There remains some increased T2 signal around the distal aspect of the posterior tibialis tendon which could be related to some mild tenosynovitis. No evidence of calcaneal stress fracture. IMPRESSION: 1. Thinning of the ATFL not significantly changed which could represent sequela from a chronic partial tear. A complete tear is not felt to be present. 2. Possible tenosynovitis at the distal aspect of the posterior tibialis tendon 3. There remains fluid around the os trigonum suggesting synovitis Dictated by: Antwan Akhtar MD 09/01/2020 10:44 Antwan Akhtar MD in [place] 09/01/2020 10:44
== END ==
PROVIDERS: PCP Family Medicine; Visit Provider Podiatrist
DX: M76.821 Posterior tibial tendinitis, right leg (principal); M25.571 Pain in right ankle and joints of right foot; M25.572 Pain in left ankle and joints of left foot; M76.822 Posterior tibial tendinitis, left leg
CPT/HCPCS: 73721

== ENCOUNTER → 2020-08-28 14:45 | Outpatient (CLI) | payer OTHER, SELFPAY ==
--- NOTE | 2020-08-28 14:45 | MR_ITS ---
PROCEDURE: MR ANKLE LT WO CON CLINICAL INDICATION: pain SWOLLEN AND DISCOLORATION IN ANKLE. MEDIAL SIDED ANKLE PAIN. [id number]. PRIOR MRI 06-05-19 TECHNIQUE: Routine multiplanar multi echo sequences are performed without gadolinium enhancement. FINDINGS: The tibiofibular syndesmosis and tibiofibular ligaments appear intact. The ATFL slightly thinned. A complete tear however is not felt to be present. This could be due to prior sprain or partial tear. PT FL appears intact. Deltoid ligament is intact. There is linear increased T2 signal involving the distal aspect of the posterior tibialis tendon just proximal to the navicular insertion suggesting a split tear not readily apparent on the previous exam.. There is edema of the soft tissues along the medial aspect of the hindfoot medial to the flexor digitorum and flexor hallucis longus tendons. The Achilles tendon appears intact as does the extensor tendons. No bone bruise or fracture is evident. The flexor digitorum longus, flexor hallucis longus, and peroneal tendons appear intact. IMPRESSION: 1. Suspect a split tear of the distal aspect of the tibialis posterior tendon 2. Moderate amount of edema involving the soft tissues medial to the flexor hallucis longus and flexor digitorum longus tendons medial to the distal aspect of the calcaneus suggesting underlying inflammatory changes. 3. Mild nonspecific thinning of the ATFL Dictated by: Antwan Akhtar MD 09/01/2020 11:50 Antwan Akhtar MD in [place] 09/01/2020 11:50
== END ==
PROVIDERS: PCP Family Medicine; Visit Provider Podiatrist
DX: M25.572 Pain in left ankle and joints of left foot (principal); M76.822 Posterior tibial tendinitis, left leg; M25.571 Pain in right ankle and joints of right foot; M76.821 Posterior tibial tendinitis, right leg
CPT/HCPCS: 73721

== ENCOUNTER 2020-09-16 14:20 | Day surgery (SDC) | payer OTHER, SELFPAY ==
[2020-09-16 14:42] VITALS: BP 124/81; PULSE 77; RESP 18; TEMP 36.1; O2SAT 97; BMI 29.0
[2020-09-16 15:04] VITALS: BP 132/85; PULSE 85; RESP 18
--- NOTE | 2020-09-16 15:04 | HMH.PMPROC ---
- Procedure Date: 09/16/20 Time: 15:04 Anesthesiologist:: Ninoska Castillo APRN Complications:: None Pre-procedure Diagnosis:: myofascial pain Post-procedure Diagnosis:: same Indications for Procedure:: Patient is pleasant 50-year-old white female who presents today for trigger point injections. Patient gets up to 80% relief with her trigger points for several months. Patient is also wanting to look into dry needling. She has had good relief with this in the past. Patient does have an intrathecal pain pump we discussed adding bupivacaine to her current medication. We will move forward with this at her next refill. She rates her pain today 6 out of 10. She does have palpable trigger points bilateral upper trapezius muscles. Procedure Details:: Procedure: Informed consent was obtained and the risk and benefits of the procedure were explained to the patient. Patient was taken to the procedure room. Bilateral trapezius and cervical paraspinous muscles were prepped using ChloraPrep as a cleansing solution. Trigger points were palpated and marked. Each of these trigger points were injected with 3 mL's of bupivacaine 0.25 and dextrose 5%. A total of 20 mL's were utilized 8 trigger points. Bandages were placed over the injection sites. Patient tolerated the procedure well with no complications. Plan and Disposition:: We will follow-up with the patient at her next intrathecal pain pump refill we will add 5 mg/mL of bupivacaine to her intrathecal infusion. We will also set her up for dry needling with physical therapy. She has been instructed to call the office if she has any issues prior to her next appointment. Dr. Boyce has reviewed this note and agrees with this plan of care. This note was dictated using voice recognition software and may contain errors or omissions
[2020-09-16 15:07] VITALS: BP 138/85; PULSE 89; RESP 18; O2SAT 98
[2020-09-16 16:00] VITALS: BP 132/66; PULSE 65; RESP 18; O2SAT 97
== END 2020-09-16 16:07 | disposition home or self-care (01) ==
LOC: SC.PAINP 14:22
PROVIDERS: PCP Family Medicine; Visit Provider Clinical Nurse Specialist Family Health
DX: M79.18 Myalgia, other site (principal); M96.1 Postlaminectomy syndrome, not elsewhere classified; E78.5 Hyperlipidemia, unspecified; J45.909 Unspecified asthma, uncomplicated; K21.9 Gastro-esophageal reflux disease without esophagitis; G43.909 Migraine, unspecified, not intractable, without status migrainosus; E07.9 Disorder of thyroid, unspecified; Z90.49 Acquired absence of other specified parts of digestive tract; Z88.1 Allergy status to other antibiotic agents; Z88.0 Allergy status to penicillin; Z88.8 Allergy status to other drugs, medicaments and biological substances; Z79.899 Other long term (current) drug therapy
CPT/HCPCS: 20552

== ENCOUNTER → 2020-09-17 12:51 | Outpatient (CLI) | payer OTHER, SELFPAY ==
--- NOTE | 2020-09-17 12:51 | US_ITS ---
PROCEDURE: US TRANSVAGINAL CLINICAL INDICATION: pelvic pain/ fibroid COMPARISON: US TRANVAG US transvaginal from 06/23/2019 FINDINGS: The uterus is 8 x 4 x 5 cm with a combined endometrial thickness 2 mm. 3 fibroids are present. 1 cm fibroid in the mid aspect of the uterus with calcification. In the lower uterine segment posteriorly there is a 2.4 cm fibroid unchanged. Fibroid noted in the fundal region is present at 2.2 cm unchanged slightly smaller. There is a left ovarian cyst at 2 cm. The right ovary has an unremarkable appearance. No cul-de-sac fluid evident. IMPRESSION: No change uterine fibroids. Simple 2 cm left ovarian cyst Dictated by: Antwan Akhtar MD 09/17/2020 17:14 Antwan Akhtar MD in [place] 09/17/2020 17:14
== END ==
PROVIDERS: PCP Family Medicine; Visit Provider Nurse Practitioner Obstetrics & Gynecology
DX: D21.9 Benign neoplasm of connective and other soft tissue, unspecified (principal); R10.2 Pelvic and perineal pain
CPT/HCPCS: 76830

== ENCOUNTER 2020-10-04 09:48 | Day surgery (SDC) | payer OTHER, SELFPAY ==
[2020-10-04 10:11] VITALS: BP 104/63; PULSE 69; RESP 18; TEMP 36.4; O2SAT 95; BMI 36.0
[2020-10-04 10:38] VITALS: BP 124/71; PULSE 69; RESP 18; O2SAT 95
[2020-10-04 10:40] VITALS: BP 128/74; PULSE 85; RESP 18; O2SAT 98
--- NOTE | 2020-10-04 11:05 | HMH.PMPROC ---
- Procedure Date: 10/04/20 Time: 11:05 Anesthesiologist:: Robert Boyce MD Complications:: None Pre-procedure Diagnosis:: Degenerative disc disease of lumbar spine with lumbar radiculopathy symptoms and bilateral jaw pain with trigeminal nerve pain bilaterally Post-procedure Diagnosis:: Same Indications for Procedure:: This patient is a pleasant 50-year-old white female who we are treating for low back pain with lumbar radiculopathy symptoms. We are adding intrathecal bupivacaine to her pain pump medication. This will be intrathecal Dilaudid and bupivacaine. She is currently going at 2.4 mg/day. We will refill her pump and start her at the intrathecal Dilaudid/bupivacaine infusion. George and urine drug screen are all appropriate. Patient does have an antalgic gait. Motor strength of lower extremities is 5/5. There is no gross sensory deficit. She is also having some bilateral jaw pain with trigeminal neuralgia. We will do a right trigeminal nerve block as well. Procedure Details:: Pain pump refill informed consent was obtained and the risks and benefits of the procedure was explained to the patient. The patient was taken to the procedure room. The pump was interrogated. The area over the pump was prepped using ChloraPrep. The pump was accessed with a 22-gauge needle. Approximately 3 mL mL's of the intrathecal solution was withdrawn and discarded. The pump was then refilled with 20 mL's of intrathecal Dilaudid 10 mg per ml plus bupivacaine 5 mg per ml. The pump was interrogated and the infusion was continued at 2.4 mg/day. . The patient tolerated the procedure well with no complication. Right trigeminal nerve block She was placed supine. The area anterior to the tragus was prepped using ChloraPrep. A 25-gauge needle was used and we injected 3 mL bupivacaine 0.25% Depo-Medrol 40 mg into the area of the right trigeminal ganglion. Patient again tolerated the procedure well with no complications. Plan and Disposition:: We will follow-up with patient in 2 weeks. Will reevaluate symptoms at that time. We will plan on a left trigeminal nerve block if needed in the future.
[2020-10-04 11:15] VITALS: BP 129/79; PULSE 61; RESP 18; O2SAT 95
== END 2020-10-04 11:15 | disposition home or self-care (01) ==
LOC: SC.PAINP 09:50
PROVIDERS: PCP Family Medicine; Visit Provider Anesthesiology
DX: G50.0 Trigeminal neuralgia (principal); M51.16 Intervertebral disc disorders with radiculopathy, lumbar region; K21.9 Gastro-esophageal reflux disease without esophagitis; Z88.0 Allergy status to penicillin; Z88.1 Allergy status to other antibiotic agents; Z88.8 Allergy status to other drugs, medicaments and biological substances; E78.5 Hyperlipidemia, unspecified; J45.909 Unspecified asthma, uncomplicated; F41.9 Anxiety disorder, unspecified; F32.9 Major depressive disorder, single episode, unspecified
CPT/HCPCS: 64400; 95991; J1030

== ENCOUNTER 2020-10-24 14:00 | Outpatient (RCR) | payer OTHER, SELFPAY ==
--- NOTE | 2020-09-23 16:20 | HMH.PTOPEV ---
PT Outpatient Evaluation Rehab PT Outpatient Evaluation Start: 09/23/20 15:06 Freq: Status: Active Protocol: Document 09/23/20 15:10 JARRODISHAAN (Rec: 09/23/20 16:20 GABBY [id number]) Electronically Signed By Holden Valero PT 09/23/20 15:10 Outpatient Therapy Subjective History Subjective History This is the initial Physical Therapy evaluation for Yuridia Rosales. Pt is a 50 y/0 female referred to PT for c/o neck pain. Pt reports long history of cervical issues. 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 Pt has had 2 x sx for fide malformation and cervical fusion C4-C6. Pt now reports to PT for neck pain. Pt reports 20 year hx of cervical pain. Chief Complaint Pain,Stiff Symptom Type Ache,Throb,Sharp,Dull,Stabbing ,Burning Symptoms Relieved By Nothing Symptoms Aggravated By Sitting,Standing,Bending/ Stooping,Physical Activity Prior Functional Limitations None Current Functional Limitations Reaching,Lifting,Housework, Standing,Sitting,Recreation Activity,Walking,Stairs Symptom Description Constant but Variable Level of pain today (0-10) 5 Pain scale - at its best (0-10) 4 Pain scale - at its worst (0-10) 10 Cervical Eval Palpation Cervical Muscles R Cervical Paraspinal,L Cervical Paraspinal,R Suboccipital,L Suboccipital,R SCM,L SCM,R Upper Trapezius,L Upper Trapezius Cervical/Thoracic Palpation Findings Tenderness,Trigger Point, Muscle Guarding AROM Cervical Spine Extension Active Range of 0 Motion (degrees) Cervical Spine Flexion Active Range of 15 Motion (degrees) Cervical Spine Right Lateral Flexion 10 Active Range of Motion (degrees) Cervical Spine Left Lateral Flexion 10 Active Range of Motion (degrees) Cervical Spine Right Rotation Active 15 Range of Motion (degrees) Cervical Spine Left Rotation Active 5 Range of Motion (degrees) MMT Bilateral Deltoid (C5) 4- Good- Biceps Brachii Strength Grade 4 Good Wrist Extension Strength Grade 4- Good- Triceps Brachii Strength Grade 4 Good Wrist Flexion Strength Grade 4- Good-
== END 2020-10-24 15:02 | disposition home or self-care (01) ==
LOC: PT 14:00
PROVIDERS: PCP Family Medicine; Visit Provider Clinical Nurse Specialist Family Health
DX: M79.12 Myalgia of auxiliary muscles, head and neck (principal)
CPT/HCPCS: 20560; 97010; 97014; 97110; 97140; 97163; 97164; G0283

== ENCOUNTER 2020-12-16 11:07 | Day surgery (SDC) | payer OTHER, SELFPAY ==
[2020-12-16 11:22] VITALS: BP 139/80; PULSE 79; RESP 18; TEMP 36.8; O2SAT 97; BMI 30.2
[2020-12-16 11:40] VITALS: BP 157/89; PULSE 77; RESP 20; O2SAT 99
[2020-12-16 11:41] VITALS: BP 148/99; PULSE 77; RESP 20; O2SAT 98
--- NOTE | 2020-12-16 11:45 | HMH.PMPROC ---
- Procedure Date: 12/16/20 Time: 11:45 Anesthesiologist:: Ninoska Castillo APRN Complications:: None Pre-procedure Diagnosis:: Degenerative disc disease lumbar spine lumbar radiculopathy symptoms, myofascial pain syndrome, postlaminectomy syndrome Post-procedure Diagnosis:: Same Indications for Procedure:: Patient is pleasant 50-year-old white female who presents today for intrathecal pain pump refill along with trigger point injections of the cervical paraspinous bilaterally and upper trapezius muscles. Patient does extremely well with this getting 80% relief of her symptomology. She is currently on a infusion of Dilaudid/bupivacaine going at 2.4 mg/day she would like a slight increase. We will move forward with this. [facility] #[id number] reviewed and appropriate. Drug screens have been appropriate. She denies side effects from medication. Procedure Details:: Informed consent was obtained and the risk and benefits of the procedure were explained to the patient. The patient was taken to the procedure room where noninvasive monitoring was placed including noninvasive blood pressure cuff and pulse oximeter. Patient's pump was interrogated. The area over the pump was cleansed with chlorhexidine as a cleansing solution. In sterile fashion the pump was accessed with a 22-gauge needle. Approximately 2 mL's were removed of the pump solution and discarded appropriately. The pump was then refilled with 20 mL's of Dilaudid 10 mg/mL and bupivacaine 5 mg/mL. The needle was withdrawn and a bandage was placed over the puncture site. The infusion rate was reprogrammed to 2.6 mg/day. The patient tolerated the procedure well. We then moved onto trigger point injections. Procedure: Informed consent was obtained and the risk and benefits of the procedure were explained to the patient. Patient was taken to the procedure room. Bilateral cervical paraspinous and upper trapezius muscles bilaterally was prepped using ChloraPrep as a cleansing solution. Trigger points were palpated and marked. Each of these trigger points were injected with 3 mL's of D5 for 8 trigger points. Bandages were placed over the injection sites. Patient tolerated the procedure well with no complications. Plan and Disposition:: Follow-up the patient at her next intrathecal pain pump refill and reprogram she has been instructed to call the office if she has any issues prior to her next appointment. Dr. Boyce has reviewed this note and agrees with this plan of care. This note was dictated using voice recognition software and may contain errors or omissions
[2020-12-16 12:18] VITALS: BP 125/79; PULSE 81; RESP 18; TEMP 36.8; O2SAT 97
== END 2020-12-16 11:45 | disposition home or self-care (01) ==
LOC: SC.PAINP 11:08
PROVIDERS: PCP Family Medicine; Visit Provider Clinical Nurse Specialist Family Health
DX: M51.16 Intervertebral disc disorders with radiculopathy, lumbar region (principal); M96.1 Postlaminectomy syndrome, not elsewhere classified; M79.18 Myalgia, other site; I10 Essential (primary) hypertension; E78.5 Hyperlipidemia, unspecified; E03.9 Hypothyroidism, unspecified; Z88.0 Allergy status to penicillin; Z88.1 Allergy status to other antibiotic agents; J45.909 Unspecified asthma, uncomplicated; K21.9 Gastro-esophageal reflux disease without esophagitis; K31.84 Gastroparesis; G43.909 Migraine, unspecified, not intractable, without status migrainosus
CPT/HCPCS: 20552; 62370

== ENCOUNTER 2021-01-21 15:55 | Emergency (ER) | payer OTHER, SELFPAY ==
[2021-01-21 16:04] VITALS: BP 134/72; PULSE 79; RESP 18; TEMP 36.6; O2SAT 99; BMI 30.7
--- NOTE | 2021-01-21 16:14 | HMH.EDUTC ---
[facility] [place] Clinical Impression: Otitis media Qualifiers: Otitis media type: unspecified Laterality: right Qualified Code(s): H66.91 - Otitis media, unspecified, right ear Disposition: Home, Self-Care Condition on Discharge: Good Instructions: Middle Ear Infections (Alternative Therapy), Middle Ear Infection, Azithromycin Additional Instructions: *Monitor Temp, Over the counter Motrin or Tylenol as directed/as needed Tylenol every 4 hours and Motrin every 6 hours (as long as your family doctor has told you that you can take it) for fever or pain. and straight to ER if unable to lower temp less than 101.0 after medication given *Warm salt water gargles may help to soothe the throat *Throat Lozenges *Warm fluids like tea with honey may help to soothe the throat *Sleep elevated *Humidifier/Vaporizer *Take medications as prescribed Your throat swab was sent for culture. Those results are typically sent to your primary care. Be sure to follow up in 2-3 days with your family doctor/primary care physician if no improvement so they can review those result and treat if necessary. If you don?t have a primary care doctor, I recommend you get one but in the mean time, you will have to return to a walk in clinic Follow up IMMEDIATELY for new or worsening symptoms or no Noticeable improvement over the next 48-72 hours. 911 for difficulty breathing or swallowing Prescriptions: Azithromycin [Z-Felix 250mg Tab] 250 mg PO DIRECTED #6 tab Transmission Status: Pending to Clinic Pharmacy Must See [place] Referrals: Gayla Galan MD [Primary Care Provider] - As needed Time of Disposition: 16:24 Medical Decision Making - George Inquiry Pt receiving controlled substance: No George was queried for this patient: No Vital Signs: 01/21/21 16:04 Temperature 97.8 F Temperature Source Tympanic Pulse Rate [Right] 79 Respiratory Rate 18 Blood Pressure [Right Arm] 134/72 Blood Pressure Mean [Right Arm] 92 Blood Pressure Source [Right Arm] Automatic Cuff Blood Pressure Position [Right Arm] Sitting 02 Sat by Pulse Oximetry 99 Oxygen Delivery Method Room Air - Lab Data Lab results reviewed: Yes: I reviewed the patient's lab results. Medical Decision Narrative: Patient states that she taken azithromycin before without complications or reactions [facility] [place] - General Stated complaint: R ear pain Time Seen by Provider: 01/21/21 16:14 Mode of Arrival: Ambulatory Source of Information: Patient Limitations: No Limitations Description of Symptoms (Recalled from Triage Doc. by RN): pt has been having R ear pain for three days. HEENT Symptoms (Recalled from RN notes): Yes (R ear ache) Resp Symptoms (Recalled from RN notes): No Skin Symptoms (Recalled from RN notes): No MS Symptoms (Recalled from RN notes): No Functional Status (Recalled from RN notes): na - History of Present Illness Provider Complaint: Patient states that she has been having pain in her right ear for about 3 days States that her throat is also hurting and feeling scratchy and not sure if she may have strep throat or not - Related Data Home Medications Medication Instructions Recorded Confirmed levothyroxine 137 mcg tablet 137 mcg PO DAILY tab 04/12/18 01/21/21 fenofibrate 160 mg tablet 160 mg PO DAILY #30 tab 06/22/19 01/21/21 gabapentin 300 mg capsule 300 mg PO DAILY cap 09/17/20 01/21/21 Linaclotide [Linzess] 145 mcg PO DAILY 10/04/20 01/21/21 albuterol sulfate 90 mcg/actuation 90 milliu INHALATION . 11/12/20 01/21/21 aerosol inhaler bisacodyl 5 mg tablet,delayed 5 mg PO .. 11/12/20 01/21/21 release budesonide-formoterol HFA 80 See Protocol INHALATION . 11/12/20 01/21/21 mcg-4.5 mcg/actuation aerosol inhaler bumetanide 1 mg tablet 1 mg PO . PRN tab 11/12/20 01/21/21 lubiprostone 24 mcg capsule 24 mcg PO . cap 11/12/20 01/21/21 methocarbamol 500 mg tablet 500 mg PO . tab 11/12/20 01/21/21 tramadol 50 mg tablet 50 mg PO BID tab 11/12/20 01/21/21
[2021-01-21 16:25] VITALS: BP 130/79; PULSE 83; RESP 16; TEMP 36.6
[2021-01-21 19:04] LABS: UTC Strep Screen (Rapid) Negative (Negative)
== END 2021-01-21 16:27 | disposition home or self-care (01) ==
PROVIDERS: Emergency Provider Nurse Practitioner; PCP Family Medicine
DX: H66.91 Otitis media, unspecified, right ear (principal); I10 Essential (primary) hypertension; E78.5 Hyperlipidemia, unspecified; Z88.0 Allergy status to penicillin; Z79.899 Other long term (current) drug therapy
CPT/HCPCS: 87880; 99202; G0463

== ENCOUNTER 2021-01-29 20:38 | Observation (INO) | payer OTHER, SELFPAY ==
--- NOTE | 2021-01-29 20:37 | ECG_ITS ---
APPROVED REPORT Exam: Resting ECG HR:79 bpm ECG Measurements Heart Rate 79 AXES [place] 164 P 67 QRSd 86 QRS 42 QT 358 T 60 QTc 410 Conclusion Normal sinus rhythm Normal ECG Electronically signed by : Reji Spencer, 01/30/2021 08:38:27
[2021-01-29 20:41] VITALS: BP 165/94; PULSE 82; RESP 18; TEMP 36.6; O2SAT 100; BMI 31.8
--- NOTE | 2021-01-29 20:54 | XR_ITS ---
PROCEDURE: XR CHEST 2V CLINICAL HISTORY: chest pain COMPARISON: CR CXR2V XR chest 2V from 04/28/2018 CR XR CHEST 2V from 07/10/2019 CR XR CHEST PORTABLE from 10/22/[address] CHEST WO CON from 06/03/2020 FINDINGS: The cardiomediastinal silhouette and pulmonary vascularity are within normal limits. Mild atelectatic changes in the lung bases. Evidence of old granulomatous disease. No lobar consolidation or collapse. Prior anterior cervical fusion No acute bony abnormalities. IMPRESSION: Mild bibasilar atelectasis Dictated by: Antwan Akhtar MD 01/30/2021 05:29 Antwan Akhtar MD in [place] 01/30/2021 05:29
[2021-01-29 21:00] VITALS: BP 161/91; PULSE 84; RESP 17; O2SAT 96
--- NOTE | 2021-01-29 21:20 | HMH.EDCP ---
ED Disposition Clinical Impression: Unstable angina pectoris, Obesity (BMI 30.0-34.9) Hypothyroid Qualifiers: Hypothyroidism type: acquired Qualified Code(s): E03.9 - Hypothyroidism, unspecified Disposition: Admitted as Observation Condition on Discharge: Good - Critical Care Critical Care Time: No Attestation: On 01/29/21, the high probability of a clinically significant, sudden or life threatening deterioration of the following system(s) required my full and direct attention, intervention and personal management. The time I documented below is in addition to time spent performing reported procedures but includes the following listed in this critical care notation. Medical Decision Making - Medical Records Medical records reviewed: Yes: I reviewed the patient's medical records. - George Inquiry Pt receiving controlled substance: No Vital Signs: 01/29/21 20:41 Temperature 97.8 F Temperature Source Oral Pulse Rate [Right] 82 Respiratory Rate 18 Blood Pressure [Right Arm] 165/94 H Blood Pressure Mean [Right Arm] 117 Blood Pressure Source [Right Arm] Automatic Cuff Blood Pressure Position [Right Arm] Supine 02 Sat by Pulse Oximetry 100 Oxygen Delivery Method Room Air - Lab Data Lab results reviewed: Yes: I reviewed the patient's lab results. Lab Results 01/29/21 21:40: WBC 9.0, RBC 4.51, Hgb 13.2, Hct 42.5, MCV 94.3, MCH 29.4, MCHC 31.2 L, RDW 13.4, Plt Count 205, MPV 8.4, Neut % (Auto) 54.9, Lymph % (Auto) 35.7, [place] % (Auto) 6.4, Eos % (Auto) 2.0, Baso % (Auto) 0.9, Neut # (Auto) 4.9, Lymph # (Auto) 3.2, [place] # (Auto) 0.6, Eos # (Auto) 0.2, Baso # (Auto) 0.1 01/29/21 21:40: Sodium 140, Potassium 4.0, Chloride 104, Carbon Dioxide 29, Anion Gap 11.0, BUN 15, Creatinine 0.70, Estimated Creat Clear 133, Estimated GFR 88, Est GFR ( Amer) 106, Glucose 95, Calcium 9.7, Total Bilirubin 0.4, Direct Bilirubin 0.1, Conjugated Bilirubin 0.0, Indirect Bilirubin 0.3, Unconjugated Bilirubin 0.2, AST 45 H, ALT 22, Alkaline Phosphatase 58, Total Protein 8.0, Albumin 4.7 Result diagrams: 01/29/21 21:40 01/29/21 21:40 Orders (Tests/Meds): ED MEDICATIONS Generic Name Dose Route Start Last Admin Trade Name Jonna PRN Reason Stop Dose Admin Sodium Chloride 1,000 mls @ 999 mls/hr 01/29/21 21:00 01/29/21 21:50 Sod Chlor 0.9% 1000ml Bag IV 01/29/21 22:00 999 mls/hr .Q1H1M WALLY Administration Discontinued Medications Generic Name Dose Route Start Last Admin Trade Name Alexq PRN Reason Stop Dose Admin Aspirin 324 mg 01/29/21 20:54 01/29/21 21:50 Aspirin 81mg Chewable Tablet PO 01/29/21 20:55 324 mg ONCE ONE Administration Ketorolac Tromethamine 30 mg 01/29/21 22:07 01/29/21 22:11 Ketorolac 30mg/Ml Vial IV 01/29/21 22:08 30 mg ONCE ONE Administration Nitroglycerin 0.4 mg 01/29/21 20:56 01/29/21 21:50 Nitroglycerin 0.4mg Sl Tablet SL 01/29/21 20:57 1 tab ONCE ONE Administration Nitroglycerin 1 gm 01/29/21 22:07 01/29/21 22:11 Nitroglycerin 1 Gm Ointment TD 01/29/21 22:08 1 gm ONCE ONE Administration ORDERS Category Date Time Status XR chest 2V Stat Exams 01/29/21 20:54 Taken Basic Metabolic Panel Stat Lab 01/29/21 21:40 Results C-Reactive Protein Stat Lab 01/29/21 21:40 Results Complete Blood Count Auto Diff Stat Lab 01/29/21 21:40 Results Covid-19 Nasal PCR ([facility]) Routine Lab 01/29/21 22:13 Received Erythrocyte Sedimentation Rate Stat Lab 01/29/21 21:40 Results Liver Panel Stat Lab 01/29/21 21:40 Results Procalcitonin Stat Lab 01/29/21 21:40 Results Troponin I Q3H Lab 01/29/21 23:55 Ordered Troponin I Q3H Lab 01/30/21 02:55 Ordered Troponin I Stat Lab 01/29/21 21:40 Results - Radiology Data #1 Image(s): Chest Image Reviewed: Yes I reviewed the patient's radiology image Preliminary Findings: Normal/NAD - ECG Data Tracing #1 Normal Sinus Rhythm: Yes Ischemic changes: non-specific ST-T wave changes - Phys
[2021-01-29 21:30] VITALS: BP 114/65; PULSE 87; RESP 17; O2SAT 94
[2021-01-29 22:00] VITALS: BP 119/71; PULSE 81; RESP 15; O2SAT 94
[2021-01-29 22:03] LABS: Basophils # 0.1 K/mm3 (0-0.2); Basophils % 0.9 % (0.1-2.0); Eosinophils # 0.2 K/mm3 (0.0-0.4); Hematocrit 42.5 % (37.0-47.0); Hemoglobin 13.2 g/dL (12.2-16.2); Lymphocytes # 3.2 K/mm3 (0.7-4.5); Lymphocytes % 35.7 % (10-50); Mean Corpuscular HGB Conc 31.2 g/dL (31.8-35.4); Mean Corpuscular Hemoglobin 29.4 pg (27.0-31.2); Mean Corpuscular Volume 94.3 fl (81-99); Mean Platelet Volume 8.4 fl (7.4-10.4); Monocytes # 0.6 K/mm3 (0.1-1.0); Monocytes % 6.4 % (1.7-9.3); Neutrophils # 4.9 K/mm3 (1.8-7.8); Neutrophils % 54.9 % (37.0-80.0); Platelet Count 205 K/mm3 (142-424); Red Blood Count 4.51 M/mm3 (4.20-5.40); Red Cell Distribution Width 13.4 % (11.5-17.5)
[2021-01-29 22:10] LABS: Chloride 104 mmol/L (98-107); Sodium 140 mmol/L (136-145)
[2021-01-29 22:12] LABS: Bilirubin,Unconjugated 0.2 mg/dL (0.0-1.1); Blood Urea Nitrogen 15 mg/dl (7-17); Creatinine Clearance Estimated 133 mL/min (50-200); Estimated Glomerular Filt Rate 88 ml/min (>60); GFR (African American) 106 ML/MIN (>60)
[2021-01-29 22:13] LABS: Alanine Aminotransferase 22 U/L (12-78); Albumin Level 4.7 g/dl (3.5-5.0); Alkaline Phosphatase 58 U/L (38-126); Aspartate Amino Transferase 45 U/L (14-36); Bilirubin,Direct 0.1 mg/dl (0.0-0.4); Bilirubin,Indirect 0.3 mg/dL (0.0-0.9); Bilirubin,Total 0.4 mg/dl (0.2-1.3); Calcium 9.7 mg/dl (8.4-10.2); Carbon Dioxide 29 mmol/L (22.0-30.0); Glucose 95 mg/dl (74-100)
[2021-01-29 22:18] LABS: C-Reactive Protein 0.5 mg/L (0-4)
[2021-01-29 22:30] VITALS: BP 143/81; PULSE 77; RESP 15; O2SAT 96
[2021-01-29 22:37] LABS: Troponin I < 0.01 ng/ml (0.00-0.034)
[2021-01-29 22:41] LABS: Procalcitonin < 0.030 ng/mL (0.0-2.0)
[2021-01-29 22:47] LABS: Erythrocyte Sedimentation Rate 24 mm/hr (0-30)
[2021-01-29 23:20] LABS: Adenovirus,PCR Not Detected (NotDetected); Bordetella Pertussis Not Detected (NotDetected); Chlamydophila Pneumoniae, PCR Not Detected (NotDetected); Coronavirus 19, PCR Not Detected (NotDetected); Coronavirus 229E Not Detected (NotDetected); Coronavirus NL63 Not Detected (NotDetected); Coronavirus OC43 Not Detected (NotDetected); Coronovirus HKU1,PCR Not Detected (NotDetected); Human Metapneumovirus Not Detected (NotDetected); Influenza A, PCR Not Detected (NotDetected); Influenza AH1, 2009 Not Detected (NotDetected); Influenza AH1, PCR Not Detected (NotDetected); Influenza AH3,PCR Not Detected (NotDetected); Influenza B, PCR Not Detected (NotDetected); Mycoplasma Pneumoniae, PCR Not Detected (NotDetected); Parainfluenza 1, PCR Not Detected (NotDetected); Parainfluenza 2, PCR Not Detected (NotDetected); Parainfluenza 3, PCR Not Detected (NotDetected); Parainfluenza 4, PCR Not Detected (NotDetected); Respiratory Syncytial Virus Not Detected (NotDetected); Rhinovirus/Enterovirus Not Detected (NotDetected)
[2021-01-30] VITALS (20 sets, daily range): BP systolic 108–168; BP diastolic 63–88; PULSE 69–95; RESP 13–20; TEMP 36.6–36.9; O2SAT 90–99; BMI 31.8; BMI 32.1
--- NOTE | 2021-01-30 | IR_ITS ---
APPROVED REPORT Patient Location: Inpatient Mill Attendant: PIEDAD Urbina RT (R) PROCEDURES Left heart catheterization Left ventriculogram Selective coronary angiogram INDICATION Unstable angina Informed consent was obtained prior to the procedure. COMPLICATIONS None Estimated Blood Loss: Less than 10 mls TECHNIQUE One percent lidocaine used to anesthetize the right anterior aspect of the wrist. The right radial artery was accessed via the Seldinger technique. A 6 Guamanian sheath was placed in the right radial artery. 2.5 mg of verapamil, 800 mcg of nitroglycerin, 1mg Lidocaine and 5000 U Heparin were given through the arterial sheath. The trap catheter was also used to perform left heart catheterization, left ventriculogram and selective coronary angiogram. At the end of the procedure the sheath was removed good hemostasis was achieved using Traclet band, patient was transferred to the postop holding area in stable condition. ANGIOGRAPHIC RESULTS The left main artery Normal The left anterior descending artery Normal The circumflex artery Normal The right coronary artery Dominant normal The [place] ventriculogram reveals Normal 65% The left ventricular end-diastolic pressure 10 mmHg IMPRESSION Normal coronary arteries Normal ejection fraction Normal left ventricular end-diastolic pressure PLAN 1. Medical management Electronically signed by : Scott Baxter, 01/30/2021 11:38:29
[2021-01-30 00:21] LABS: Troponin I < 0.01 ng/ml (0.00-0.034)
--- NOTE | 2021-01-30 01:31 | PC.NURSE ---
patient up to floor via wheelchair.
[2021-01-30 03:27] LABS: Troponin I < 0.01 ng/ml (0.00-0.034)
--- NOTE | 2021-01-30 06:24 | PC.NURSE ---
PT HAS BEEN SLEEPING SINCE ARRIVING TO THE FLOOR FROM THE ED. PT WAS ABLE TO AMBULATE TO THE BATHROOM WITH 1 ASSIST. NO COMPLAINTS OF CP OR SOA. LUNG SOUNDS CLEAR. ABDOMEN SOFT/NON TENDER WITH ACTIVE BOWEL SOUNDS. SKIN C/D/I. PT HAS BEEN NPO SINCE MIDNIGHT FOR CARDIOLOGY CONSULT. VSS. WILL CONTINUE TO MONITOR.
[2021-01-30 06:35] LABS: Basophils % 0.3 % (0.1-2.0); Eosinophils # 0.1 K/mm3 (0.0-0.4); Eosinophils % 2.1 % (0.1-12.0); Hematocrit 36.2 % (37.0-47.0); Lymphocytes # 2.7 K/mm3 (0.7-4.5); Lymphocytes % 40.7 % (10-50); Mean Corpuscular HGB Conc 32.1 g/dL (31.8-35.4); Mean Corpuscular Hemoglobin 30.5 pg (27.0-31.2); Mean Corpuscular Volume 94.9 fl (81-99); Mean Platelet Volume 8.9 fl (7.4-10.4); Monocytes # 0.4 K/mm3 (0.1-1.0); Monocytes % 5.6 % (1.7-9.3); Neutrophils # 3.4 K/mm3 (1.8-7.8); Neutrophils % 51.3 % (37.0-80.0); Platelet Count 185 K/mm3 (142-424); Red Blood Count 3.81 M/mm3 (4.20-5.40); Red Cell Distribution Width 13.6 % (11.5-17.5); White Blood Count 6.6 K/mm3 (4.8-10.8)
[2021-01-30 06:44] LABS: Anion Gap 9.9 mEq/L (5-15); Blood Urea Nitrogen 14 mg/dl (7-17); Carbon Dioxide 27 mmol/L (22.0-30.0); Chloride 108 mmol/L (98-107); Chol/HDL Ratio 2.6 (1-3.5); Cholesterol 166 mg/dl (140-200); Creatinine Clearance Estimated 118 mL/min (50-200); Estimated Glomerular Filt Rate 75 ml/min (>60); GFR (African American) 91 ML/MIN (>60); Glucose 131 mg/dl (74-100); HDL Cholesterol 65 mg/dl (40-60); Magnesium 1.8 mg/dl (1.6-2.3); Potassium 3.9 mmoL/L (3.5-5.1); Sodium 141 mmol/L (136-145); Triglycerides 132 mg/dl (30-150); VLDL Cholesterol 26 mg/dL (0-40)
[2021-01-30 06:54] LABS: Direct LDL Cholesterol 71.16 mg/dL (100-129)
[2021-01-30 07:27] LABS: Calcium 8.7 mg/dl (8.4-10.2)
[2021-01-30 07:30] LABS: Hemoglobin 11.6 g/dL (12.2-16.2)
--- NOTE | 2021-01-30 07:41 | P.CONPHA_ITS ---
[facility] Pharmacy VTE Monitoring - Patient Demographics Admission date: 01/30/21 Report Date: 01/30/21 Time: 07:41 Allergies/Adverse Reactions: Patient Allergies niacin [NIACIN] Allergy (Severe, Verified 01/23/21 09:36) S-DIFF. BREATHING Penicillins [PENICILLINS] Allergy (Intermediate, Verified 01/23/21 09:36) I-HIVES ondansetron [From ZOFRAN ( HYDROCHLORIDE)] Allergy (Mild, Verified 01/23/21 09:36) ABD PAIN clindamycin Allergy (Verified 01/23/21 09:36) metoclopramide [From Reglan] Allergy (Verified 01/23/21 09:36) sulfamethoxazole [From Bactrim] Allergy (Verified 01/23/21 09:36) trimethoprim [From Bactrim] Allergy (Verified 01/23/21 09:36) vancomycin Allergy (Verified 01/23/21 09:36) Hives Height: 1.68 m Weight: 90.718 kg Patient Problems: Current Active Problems Unstable angina pectoris (Acute) Hypothyroid (Acute) Obesity (BMI 30.0-34.9) (Chronic) - VTE Risk Labs: VTE Related Lab Results Hgb 11.6 g/dL (12.2-16.2) L D 01/30/21 06:07 Hct 36.2 % (37.0-47.0) L 01/30/21 06:07 Plt Count 185 K/mm3 (142-424) 01/30/21 06:07 BUN 14 mg/dl (7-17) 01/30/21 06:07 Creatinine 0.80 mg/dl (0.52-1.04) 01/30/21 06:07 Estimated Creat Clear 118 mL/min (50-200) 01/30/21 06:07 Was VTE Risk Assessment Performed: Yes VTE Score: 1 VTE Risk Level: Low Risk Clinical Trial Participant: No - Prophylaxis VTE Prophylaxis Ordered?: Yes Types of VTE Prophylaxis: TEDS Knee High
--- NOTE | 2021-01-30 07:43 | HMH.CNCARD ---
History of Present Illness Consult date: 01/30/21 Requesting physician: Reji Spencer Consult reason: chest pain Chief complaint: Palpitations, CP, SOA Additional Medical History:: 1. Left heart catheterization, 2012, normal coronary arteries A. Lexiscan Myoview, 04/2018, no ischemia with normal ejection fraction 65%. 2. History of brain surgery for Chiari malformation 3. History of spinal stenosis with fusion in 2001, now with indwelling pain pump managed by Dr. Boyce. 4. Hypertension 5. Hyperlipidemia 6. Hypothyroidism, on replacement History of present illness: 50 yo WF with history of normal coronary arteries in 2012 and normal garland myoview in 2017 presented to ER for evaluation of palpitations, chest pressure and jaw discomfort with associated SOA and nausea while at [employer] last evening. Symptoms worsened with redness of chest and face. EMS transported to ER for further evaluation. Symptoms improved with NTG in ER. EKG was without acute ST segment changes and initial troponin normal. Pt relates shaking afterward for which she was given ativan with resolution. Troponins normal X 3 with no arrhythmias on telemetry. Recently seen in office for evaluation of similar symptoms with plans for outpatient testing but due to recurrent symptoms pt came to ER for evaluation. [facility] History Medical History: Reports:: Hyperlipidemia, Hypertension Denies:: Cancer, Diabetes Mellitus Type 1, Diabetes Mellitus Type 2, MRSA, Seizures *Have you ever received a pneumonia vaccine?: No *Have you received a flu vaccine this season?: No Other Medical History: Reports: Arthritis, Hypothyroidism, Thyroid Disease, Other. Denies: Blood Transfusion Reaction, Radiation Therapy Other Surgeries: Yes: No Previous Surgery, Cholecystectomy, Colonoscopy, , EGD, Tubal Ligation, Other Amputation: No Fractures: No - *Social History Last grade of school completed: High school graduate Smoking Status: Never smoker Alcohol Intake: never Alcohol Intake Frequency:: other Substance Use Type: denies use *Occupational Status:: unemployed Housing: apartment Household Members: spouse *Travel in the last 8 weeks: None Family Hx:: Cancer, Diabetes, Heart Attack, Hypertension, Thyroid Disorder Meds Home Medications Medication Instructions Recorded Confirmed Type levothyroxine 137 mcg tablet 137 mcg PO DAILY tab 04/12/18 01/29/21 History fenofibrate 160 mg tablet 160 mg PO DAILY #30 tab 06/22/19 01/29/21 History gabapentin 300 mg capsule 300 mg PO QID cap 09/17/20 01/30/21 History bisoprolol fumarate 5 mg tablet 5 mg PO DAILY 01/23/21 01/29/21 History dexlansoprazole 60 mg 60 mg PO DAILYP PRN cap 01/23/21 01/30/21 History capsule,biphase delayed release methocarbamol 500 mg tablet 500 mg PO QIDP PRN tab 01/23/21 01/30/21 History tramadol 50 mg tablet 50 mg PO BIDP PRN tab 01/23/21 01/30/21 History Budesonide/Formoterol Fumarate 2 puffs IH BID 01/30/21 01/30/21 History [Budesonide-Formoterol 80-4.5] Lubiprostone 24 mcg PO DAILY 01/30/21 01/30/21 History Zolpidem Tartrate 10 mg PO DAILY 01/30/21 01/30/21 History Allergies Allergy/AdvReac Type Severity Reaction Status Date / Time niacin [NIACIN] Allergy Severe S-DIFF. Verified 01/23/21 09:36 BREATHING Penicillins [PENICILLINS] Allergy Intermediate I-HIVES Verified 01/23/21 09:36 ondansetron Allergy Mild ABD PAIN Verified 01/23/21 09:36 [From ZOFRAN ( HYDROCHLORIDE)] clindamycin Allergy Verified 01/23/21 09:36 metoclopramide [From Reglan] Allergy Verified 01/23/21 09:36 sulfamethoxazole Allergy Verified 01/23/21 09:36 [From Bactrim] trimethoprim [From Bactrim] Allergy Verified 01/23/21 09:36 vancomycin Allergy Hives Verified 01/23/21 09:36 Exam Vital signs and Labs for Last 24 Hours: Temp Pulse Resp BP Pulse Ox 98.3 F 89 16 123/64 93 L 01/30/21 04:00 01/30/21 04:00 01/30/21 04:00 01/30/21 04:00 01/30/21 04:00 Laboratory Results - last 24
--- NOTE | 2021-01-30 07:50 | HMH.HP ---
*Admission Date: 01/30/21 *Chief complaint: Chest pain *History of present illness: 50-year-old white female with history of noncardiac chest pain, has had on and off anginal-like symptoms. Admitted through ER for left heart cath. [facility] History I have reviewed the patient's past medical history: Yes Medical History: Reports:: Hyperlipidemia, Hypertension Denies:: Cancer, Diabetes Mellitus Type 1, Diabetes Mellitus Type 2, MRSA, Seizures *Have you ever received a pneumonia vaccine?: No *Have you received a flu vaccine this season?: No Other Medical History: Reports: Arthritis, Hypothyroidism, Thyroid Disease, Other. Denies: Blood Transfusion Reaction, Radiation Therapy Other Surgeries: Yes: No Previous Surgery, Cholecystectomy, Colonoscopy, , EGD, Tubal Ligation, Other Amputation: No Fractures: No - *Social History Last grade of school completed: High school graduate Smoking Status: Never smoker Alcohol Intake: never Alcohol Intake Frequency:: other Substance Use Type: denies use *Occupational Status:: unemployed Housing: apartment Household Members: spouse *Travel in the last 8 weeks: None Family Hx:: Cancer, Diabetes, Heart Attack, Hypertension, Thyroid Disorder Review of Systems - Review of Systems Review of systems:: pertinent systems reviewed and negative unless documented below - *Neurologic Denies seizure-like activity Meds Home Medications Medication Instructions Recorded Confirmed Type levothyroxine 137 mcg tablet 137 mcg PO DAILY tab 04/12/18 01/29/21 History fenofibrate 160 mg tablet 160 mg PO DAILY #30 tab 06/22/19 01/29/21 History gabapentin 300 mg capsule 300 mg PO DAILY cap 09/17/20 01/29/21 History bisoprolol fumarate 5 mg tablet 5 mg PO DAILY PRN 01/23/21 01/29/21 History dexlansoprazole 60 mg 60 mg PO DAILY PRN cap 01/23/21 01/29/21 History capsule,biphase delayed release methocarbamol 500 mg tablet 500 mg PO QID PRN tab 01/23/21 01/29/21 History tramadol 50 mg tablet 50 mg PO BID PRN tab 01/23/21 01/29/21 History Allergies Allergy/AdvReac Type Severity Reaction Status Date / Time niacin [NIACIN] Allergy Severe S-DIFF. Verified 01/23/21 09:36 BREATHING Penicillins [PENICILLINS] Allergy Intermediate I-HIVES Verified 01/23/21 09:36 ondansetron Allergy Mild ABD PAIN Verified 01/23/21 09:36 [From ZOFRAN ( HYDROCHLORIDE)] clindamycin Allergy Verified 01/23/21 09:36 metoclopramide [From Reglan] Allergy Verified 01/23/21 09:36 sulfamethoxazole Allergy Verified 01/23/21 09:36 [From Bactrim] trimethoprim [From Bactrim] Allergy Verified 01/23/21 09:36 vancomycin Allergy Hives Verified 01/23/21 09:36 Exam Vital signs and Labs for Last 24 Hours: Temp Pulse Resp BP Pulse Ox 98.3 F 89 16 123/64 93 L 01/30/21 04:00 01/30/21 04:00 01/30/21 04:00 01/30/21 04:00 01/30/21 04:00 Laboratory Results - last 24 hr 01/29/21 21:40: WBC 9.0, RBC 4.51, Hgb 13.2, Hct 42.5, MCV 94.3, MCH 29.4, MCHC 31.2 L, RDW 13.4, Plt Count 205, MPV 8.4, Neut % (Auto) 54.9, Lymph % (Auto) 35.7, [place] % (Auto) 6.4, Eos % (Auto) 2.0, Baso % (Auto) 0.9, Neut # (Auto) 4.9, Lymph # (Auto) 3.2, [place] # (Auto) 0.6, Eos # (Auto) 0.2, Baso # (Auto) 0.1, ESR 24 01/29/21 21:40: Sodium 140, Potassium 4.0, Chloride 104, Carbon Dioxide 29, Anion Gap 11.0, BUN 15, Creatinine 0.70, Estimated Creat Clear 133, Estimated GFR 88, Est GFR ( Amer) 106, Glucose 95, Calcium 9.7, Total Bilirubin 0.4, Direct Bilirubin 0.1, Conjugated Bilirubin 0.0, Indirect Bilirubin 0.3, Unconjugated Bilirubin 0.2, AST 45 H, ALT 22, Alkaline Phosphatase 58, Troponin I < 0.01, C-Reactive Protein 0.5, Total Protein 8.0, Albumin 4.7, Procalcitonin < 0.030 01/29/21 22:13: Chlamy pneumoniae PCR Not detected, Adenovirus (PCR) Not detected, B. pertussis DNA (PCR) Not detected, Coronavirus OC43 (PCR) Not detected, Coronavirus HKU1 (PCR) Not detected, Coronavirus 229E (PCR) Not detected, SARS-CoV-2 (PCR) Not detected, Coron
--- NOTE | 2021-01-30 08:00 | CA_ITS ---
APPROVED REPORT EXAM: Comprehensive 2D, Doppler, and color-flow Echocardiogram Integration Project Manager: Margarita Parish, GEORGE, RVS Ht: 5 ft 6 in Wt: 197lbs BSA: 1.99 HR: 87 bpm BP: 165/94 mmHg Rhythm: NSR Indications: CP, HTN, ANGINA 2D Dimensions Aortic Root 3.00 cm F: 2.7 - 3.3 LA Volume 38.80 mL Left Atrium 3.50 cm F: 2.7 - 3.8 LA Volume Index 19.534289 mL/m2 (M/F) 16-34 LVOT 2.03 cm (M/F) 1.5-2.5 M-Mode Dimensions RVDd 3.04 cm (0.9-2.6) LA Diam 3.89 cm (1.9-4.0) LVDd 4.89 cm (3.5-5.7) Ao Diam 2.83 cm (2.0-3.7) LVDs 3.11 cm (3.5-5.7) IVSd 0.89 cm (0.6-1.1) PWd 1.00 cm (0.6-1.1) EF (Teich) 62.60% EPSs 0.72 cm FS 33.80% EDV (Teich) 108.60 mL TAPSE 2.54 (<1.7) ESV (Teich) 40.60 mL LV Diastology E Decel Time 227.00 (160-240 msec) E/A Ratio 1.03 MED E' 8.10 (< 7 cm/sec) MED A' 12.40 cm/s E'/MED E' Ratio 11.41 (>14) LAT E' 10.70 (<10 cm/sec) LAT A' 13.30 cm/s E/LAT E' Ratio 8.64 (>14) Aortic Valve AoV Peak Eusebio. 153.00 (50-130 cm/s) AO Peak GR. 9.30 mmHg AO Mean GR. 5.10 (<5 mmHg) AO VTI 30.92 (18-25 cm) Mitral Valve MV E Max Eusebio. 92.00 (40-130 cm/s) MV A Velocity 89.00 (40-130 cm/s) E/A Ratio 1.03 MV Decel. Time 227.00 (160-240 ms) MV PHT 66.00 ms Pulmonary Valve PV Peak Velocity 102.00 (50-150 cm/s) Tricuspid Valve TR P. Velocity 289.00 cm/s Left Ventricle Left atrium is mildly enlarged, left ventricle is normal size, mild concentric left ventricular hypertrophy, visually estimated ejection fraction 55% with no regional wall motion abnormality, grade 1 diastolic dysfunction seen without tissue Doppler evidence of raise left atrial pressure. Right Ventricle Right atrium and right ventricle are normal size and contractility. Aortic Valve Aortic valve is minimally thickened and fibrosed, there is no aortic stenosis or aortic insufficiency. Mitral Valve Mitral valve is grossly normal there is trace mitral regurgitation. Tricuspid Valve Tricuspid valve grossly normal, there is trace tricuspid regurgitation tricuspid regurgitation jet velocity is inadequate for calculation of the left ventricular systolic pressure. Pulmonic Valve Pulmonic valve is poorly visualized. Great Vessels Aortic root is normal size. Pericardium No significant pericardial effusion noted. Conclusion 1. Mildly enlarged left atrium, normal left ventricular size, mild concentric left ventricular hypertrophy, visually estimated ejection fraction 55% with no regional wall motion abnormality, grade 1 diastolic dysfunction seen without tissue Doppler evidence of raise left atrial pressure. 2. Trace mitral and tricuspid regurgitation. 3. No significant pericardial effusion noted. Electronically signed by : Sanchez Blanchard, 01/30/2021 16:30:57
--- NOTE | 2021-01-30 10:49 | PC.NURSE ---
pT OFF FLOOR FOR HEART CATH
--- NOTE | 2021-01-30 12:44 | PC.NURSE ---
Pt back to the floor via bed transferred by Katrin Alfred and ARRON العراقي from [employer].
--- NOTE | 2021-01-30 14:26 | HMH.DCSUM ---
General - General Admission date:: 01/30/21 Discharge date: 01/30/21 HPI HPI: 50-year-old white female with history of noncardiac chest pain, has had on and off anginal-like symptoms. Admitted through ER for left heart cath. Hospital Course Hospital Course: Patient was admitted, ruled out for KS. Taken for heart cath. Results below: ANGIOGRAPHIC RESULTS The left main artery Normal The left anterior descending artery Normal The circumflex artery Normal The right coronary artery Dominant normal The [place] ventriculogram reveals Normal 65% The left ventricular end-diastolic pressure 10 mmHg IMPRESSION Normal coronary arteries Normal ejection fraction Normal left ventricular end-diastolic pressure PLAN 1. Medical management Patient will be discharged to resume her normal medical follow-up. Objective Vital signs: Temp Pulse Resp BP Pulse Ox 98 F 88 16 136/77 96 01/30/21 11:45 01/30/21 14:00 01/30/21 14:00 01/30/21 14:00 01/30/21 14:00 no acute distress - *Routine HEENT Exam Head: Present: normocephalic Eye: Present: EOMI, PERRL ENT: Present: mucous membranes moist - *Routine Neck Exam Present: supple - *Routine Respiratory Exam Present: CTA bilaterally - *Routine Cardiovascular Exam Present: RRR - *Routine Abdominal Exam Present: soft, normoactive bowel sounds. Absent: tenderness - *Routine Extremities Exam Absent: cyanosis, clubbing, edema - *Routine Skin Exam Present: warm. Absent: rash - Detailed Eye Exam Eyelids: Bilateral normal inspection Results Labs on day of discharge: Labs from last 24 hours 01/30/21 01/30/21 01/30/21 06:07 06:07 02:30 WBC 6.6 D RBC 3.81 L Hgb 11.6 L D Hct 36.2 L MCV 94.9 MCH 30.5 MCHC 32.1 RDW 13.6 Plt Count 185 MPV 8.9 Neut % (Auto) 51.3 Lymph % (Auto) 40.7 [place] % (Auto) 5.6 Eos % (Auto) 2.1 Baso % (Auto) 0.3 Neut # (Auto) 3.4 Lymph # (Auto) 2.7 [place] # (Auto) 0.4 Eos # (Auto) 0.1 Baso # (Auto) 0.0 ESR Sodium 141 Potassium 3.9 Chloride 108 H Carbon Dioxide 27 Anion Gap 9.9 BUN 14 Creatinine 0.80 Estimated Creat Clear 118 Estimated GFR 75 Est GFR ( Amer) 91 Glucose 131 H D Calcium 8.7 D Magnesium 1.8 Total Bilirubin Direct Bilirubin Conjugated Bilirubin Indirect Bilirubin Unconjugated Bilirubin AST ALT Alkaline Phosphatase Troponin I < 0.01 C-Reactive Protein Total Protein Albumin Triglycerides 132 Cholesterol 166 LDL Cholesterol Direct 71.16 L VLDL Cholesterol 26 HDL Cholesterol 65 H Cholesterol/HDL Ratio 2.6 Procalcitonin Chlamy pneumoniae PCR Adenovirus (PCR) B. pertussis DNA (PCR) Coronavirus OC43 (PCR) Coronavirus HKU1 (PCR) Coronavirus 229E (PCR) SARS-CoV-2 (PCR) Coronavirus NL63 (PCR) Human Metapneumovir PCR Influenza A (H1) PCR Influ A (H1N1/09) PCR Influenza A (H3) PCR Influenza Type A (PCR) Influenza Type B (PCR) M. pneumoniae (PCR) Parainfluenza 1 (PCR) Parainfluenza 2 (PCR) Parainfluenza 3 (PCR) Parainfluenza 4 (PCR) RSV (PCR) Entero/Rhino (PCR) 01/29/21 01/29/21 01/29/21 23:50 22:13 21:40 WBC RBC Hgb Hct MCV MCH MCHC RDW Plt Count MPV Neut % (Auto) Lymph % (Auto) [place] % (Auto) Eos % (Auto) Baso % (Auto) Neut # (Auto) Lymph # (Auto) [place] # (Auto) Eos # (Auto) Baso # (Auto) ESR Sodium 140 Potassium 4.0 Chloride 104 Carbon Dioxide 29 Anion Gap 11.0 BUN 15 Creatinine 0.70 Estimated Creat Clear 133 Estimated GFR 88 Est GFR ( Amer) 106 Glucose 95 Calcium 9.7 Magnesium Total Bilirubin 0.4 Direct Bilirubin 0.1 Conjugated Bilirubin 0.0 Indirect Bilirubin 0.3 Unconjugated Bilirubin 0.2 AST 4
--- NOTE | 2021-01-30 16:09 | PC.NURSE ---
Radial band removed as follows: 1340 2mls air removed 1410 2mls of air removed 1425 2mls of air removed 1440 2mls of air removed 1455 2mls of air removed 1515 2mls of air removed 1530 radial band removed; telfa and tegaderm in place; no s/s of hematoma
== END 2021-01-30 16:50 | disposition home or self-care (01) ==
LOC: ER 21:45 → 2ND 22:38
PROVIDERS: Internal Medicine; Admitting Provider Internal Medicine Adolescent Medicine; Emergency Provider Emergency Medicine; Visit Provider Internal Medicine Adolescent Medicine
DX: I25.110 Atherosclerotic heart disease of native coronary artery with unstable angina pectoris (principal); I10 Essential (primary) hypertension; E78.5 Hyperlipidemia, unspecified; Z79.899 Other long term (current) drug therapy; E03.9 Hypothyroidism, unspecified; Z88.0 Allergy status to penicillin; Z88.5 Allergy status to narcotic agent; Z88.8 Allergy status to other drugs, medicaments and biological substances
CPT/HCPCS: 36415; 71046; 80048; 80061; 80076; 83735; 84145; 84484; 85025; 85651; 86140; 87581; 87633; 87798; 93005; 93306; 93458; 96365; 96375; 99152; 99284; C1725; C1769; G0378; J1644; Q9967

== ENCOUNTER 2021-02-10 14:09 | Day surgery (SDC) | payer OTHER, SELFPAY ==
[2021-02-10 14:37] VITALS: BP 130/84; PULSE 71; RESP 20; TEMP 35.9; O2SAT 96; BMI 32.3
[2021-02-10 14:54] VITALS: BP 146/85; PULSE 68; RESP 18; O2SAT 98
[2021-02-10 14:59] VITALS: BP 147/78; PULSE 68; RESP 18; O2SAT 98
--- NOTE | 2021-02-10 15:08 | P.PCN_ITS ---
- Procedure Date: 02/10/21 Time: 15:08 Anesthesiologist:: Ninosak Castillo APRN Complications:: None Pre-procedure Diagnosis:: Degenerative disc disease lumbar spine lumbar radiculopathy, degenerative disc disease cervical spine cervical radiculopathy, postlaminectomy syndrome Post-procedure Diagnosis:: Same Indications for Procedure:: Patient is a pleasant 50-year-old white female who presents today for intrathecal pain pump refill and reprogram. Patient currently rates her pain today 6 out of 10 she does not need any changes in her intrathecal infusion of 2.6 mg of Dilaudid a day. Patient denies side effects. Overall patient doing well. [employer] [facility] [employer] [facility] #[id number] reviewed and appropriate. Patient does take gabapentin 300 mg 1 p.o. 4 times daily Procedure Details:: Informed consent was obtained and the risk and benefits of the procedure were explained to the patient. The patient was taken to the procedure room where noninvasive monitoring was placed including noninvasive blood pressure cuff and pulse oximeter. Patient's pump was interrogated. The area over the pump was cleansed with chlorhexidine as a cleansing solution. In sterile fashion the pump was accessed with a 22-gauge needle. Approximately 5 mL's were removed of the pump solution and discarded appropriately. The pump was then refilled with 20 mL's of Dilaudid 10 mg/mL. The needle was withdrawn and a bandage was placed over the puncture site. The infusion rate was reprogrammed to continue at 2.6 mg/day. The patient tolerated the procedure well. Plan and Disposition:: I will follow up with the patient at her next intrathecal pain pump refill and reprogram she has been instructed to call the office if she has any issues prior to her next appointment. Dr. Boyce has reviewed this note and agrees with this plan of care. This note was dictated using voice recognition software and may contain errors or omissions
[2021-02-10 15:50] VITALS: BP 137/85; PULSE 71; RESP 18; O2SAT 98
== END 2021-02-10 15:00 | disposition home or self-care (01) ==
LOC: SC.PAINP 14:12
PROVIDERS: Visit Provider Clinical Nurse Specialist Family Health
DX: M51.16 Intervertebral disc disorders with radiculopathy, lumbar region (principal); M50.10 Cervical disc disorder with radiculopathy, unspecified cervical region; M96.1 Postlaminectomy syndrome, not elsewhere classified; E78.5 Hyperlipidemia, unspecified; I10 Essential (primary) hypertension; R55 Syncope and collapse; R00.2 Palpitations; E03.9 Hypothyroidism, unspecified; F41.9 Anxiety disorder, unspecified; K31.84 Gastroparesis; Z88.0 Allergy status to penicillin; Z88.2 Allergy status to sulfonamides
CPT/HCPCS: 95991

== ENCOUNTER → 2021-02-24 14:50 | Outpatient (POV) | payer OTHER, SELFPAY ==
[2021-02-24 15:03] VITALS: BP 131/80; PULSE 81; RESP 18; TEMP 36.6; O2SAT 98; BMI 28.9
--- NOTE | 2021-02-24 15:29 | P.CONS_ITS ---
[facility] Pain Management SOAP Note Subjective:: Patient is a pleasant 50-year-old white female who presents today for discussion in regards to her continual headaches and myofascial pain. She rates her pain today 7 out of 10. Patient is currently being treated with trigger point injections, gabapentin, methocarbamol. Patient and I discussed a round of steroids and starting Topamax she is agreeable. We will continue her gabapentin 300 mg daily. She also has an intrathecal pain pump. ROS General: no recent weight change, no fever, no sleep disturbances Respiratory: no cough, no shortness of air, no recurring pulmonary infections Cardiovascular/Peripheral Vascular: No chest pain, No palpitations, no edema, no shortness of breath. Gastrointestinal: no new onset incontinence, normal bowel movements reported Genitourinary: no new onset incontinence Musculoskeletal: Head pain muscle pain, headache Psychiatric: normal mood/ affect Neurological: [denies new onset weakness in extremities], [denies new onset balance issues] Objective:: Physical Exam General: Alert and oriented x3, no acute distress, pleasant and cooperative, [on room air] Lungs: Resps E/U, Symmetrical chest expansion, Eyes: PERRL Musculoskeletal: Flexion and extension of cervical spine somewhat guarded secondary to pain, deep tendon reflexes normal, strength in upper and lower extremities [5/5], antalgic gait noted Neurological: speech clear, panel beater equal, no gross sensory deficits Assessment:: Myofascial pain syndrome, migraines, postlaminectomy syndrome cervical spine cervical radiculopathy Plan:: We will continue her gabapentin 300 mg p.o. daily we will also start her on prednisone 10 mg 2 tabs p.o. twice daily for 5 days. We will also start her on Topamax max 25 mg 1 p.o. daily for 1 week and then increase that to 2 tabs daily. We will see her back in 2 weeks reassess her symptoms at that time. Dr. Boyce has reviewed this note and agrees with this plan of care. This note was dictated using voice recognition software and may contain errors or omissions [facility] History I have reviewed the patient's past medical history: Yes Medical History: Reports:: Hyperlipidemia, Hypertension Denies:: Cancer, Diabetes Mellitus Type 1, Diabetes Mellitus Type 2, MRSA, Seizures *Have you ever received a pneumonia vaccine?: Yes *Have you received a flu vaccine this season?: Yes Other Medical History: Reports: Arthritis, Hypothyroidism, Thyroid Disease, Other. Denies: Blood Transfusion Reaction, Radiation Therapy Other Surgeries: Yes: No Previous Surgery, Cholecystectomy, Colonoscopy, C- section, EGD, Tubal Ligation, Other (pain pumpimplant, cervical fusion) Amputation: No Fractures: No - *Social History Smoking Status: Never smoker Alcohol Intake: never Alcohol Intake Frequency:: other Substance Use Type: denies use *Occupational Status:: disabled Housing: house Household Members: other *Travel in the last 8 weeks: None Family Hx:: Cancer, Diabetes, Heart Attack, Hypertension, Thyroid Disorder
== END ==
PROVIDERS: PCP Family Medicine; Visit Provider Clinical Nurse Specialist Family Health
DX: M79.18 Myalgia, other site (principal); G43.909 Migraine, unspecified, not intractable, without status migrainosus; M96.1 Postlaminectomy syndrome, not elsewhere classified; M54.12 Radiculopathy, cervical region
CPT/HCPCS: 99212; G0463

== ENCOUNTER → 2021-03-03 14:17 | Day surgery (SDC) | payer OTHER, SELFPAY ==
[2021-03-03 14:35] VITALS: BP 143/80; PULSE 80; RESP 18; TEMP 36.7; O2SAT 98; BMI 34.9
[2021-03-03 14:54] VITALS: BP 149/80; PULSE 80; RESP 20; TEMP 36.7; O2SAT 98; BMI 34.9
[2021-03-03 15:02] VITALS: BP 132/85; PULSE 85; RESP 18
--- NOTE | 2021-03-03 15:04 | P.PCN_ITS ---
- Procedure Date: 03/03/21 Time: 15:04 Anesthesiologist:: Ninoska Castillo APRN Complications:: None Pre-procedure Diagnosis:: Myofascial pain syndrome Post-procedure Diagnosis:: Same Indications for Procedure:: Patient is a pleasant 50-year-old white female presents today for trigger point injections. Patient has done extremely well with these in the past getting 80% relief of symptomology up to 3 months. Patient's been struggling with migraines. At her last visit she was put on Topamax 25 mg once daily she was unable to tolerate this. She has since discontinued. She is also discontinued her oral steroids Procedure Details:: Procedure: Informed consent was obtained and the risk and benefits of the procedure were explained to the patient. Patient was taken to the procedure room. Bilateral trapezius and cervical paraspinous was prepped using ChloraPrep as a cleansing solution. Trigger points were palpated and marked. Each of these trigger points were injected with 3 mL's of bupivacaine 0.25 and Depo- Medrol 10 mg. A total of 80 milligrams of Depo-Medrol was used for 8 trigger point injections. Bandages were placed over the injection sites. Patient tolerated the procedure well with no complications. Plan and Disposition:: We will send the patient to Dr. Velazquez for migraine consultation. I will see the patient back in several weeks reassess her symptoms at that time she has been instructed to call the office if she has any issues prior to her next appointment. Dr. Boyce has reviewed this note and agrees with this plan of care. This note was dictated using voice recognition software and may contain errors or omissions
[2021-03-03 15:06] VITALS: BP 140/78; PULSE 85; RESP 18; O2SAT 98
== END ==
PROVIDERS: PCP Family Medicine; Visit Provider Clinical Nurse Specialist Family Health
DX: M79.18 Myalgia, other site (principal); E03.9 Hypothyroidism, unspecified; K21.9 Gastro-esophageal reflux disease without esophagitis; F41.9 Anxiety disorder, unspecified; Z88.0 Allergy status to penicillin; Z88.1 Allergy status to other antibiotic agents; Z88.8 Allergy status to other drugs, medicaments and biological substances
CPT/HCPCS: 20553; 99212; G0463; J1030

== ENCOUNTER → 2021-03-13 14:42 | Outpatient (POV) | payer OTHER, SELFPAY ==
--- NOTE | 2021-03-13 15:25 | HMH.VVPMSO ---
[facility] PM Virtual Visit SOAP Consent for virtual visit:: With the recent concerns about the COVID-19, we are trying to minimize exposure to you by shifting to telehealth appointments whenever possible. It restricts me from seeing you in person, but the trade off is protecting you during this pandemic. Can you see and hear me okay, and do you consent to this option? If not, I would be happy to see if we can reschedule your appointment in the future, when feasible. Has patient consented to this virtual visit?: Yes Subjective:: Patient is a 50-year-old female who presents today for telehealth communication in regards to her overall health and wellbeing. Patient rates her pain today a 7 out of 10. Mostly in her neck she is interested in moving forward with PT. She is recently run into her physical therapist who has worked with her in the past and is now excepting her insurance she would like to move forward with a PT consultation with Sandra Perez. We will set this up for her. Patient also wants to discuss trigger point injections at this time I do believe she should wait for several weeks prior to any additional injections we will set her up for this. Patient has been struggling with migraines. At her last visit we consulted Dr. Velazquez for migraines however she has not been seen at this time. ROS General: no recent weight change, no fever, no sleep disturbances Respiratory: no cough, no shortness of air, no recurring pulmonary infections Cardiovascular/Peripheral Vascular: No chest pain, No palpitations, no edema, no shortness of breath. Gastrointestinal: no new onset incontinence, normal bowel movements reported Genitourinary: no new onset incontinence Musculoskeletal: Neck pain, back pain, headaches Psychiatric: normal mood/ affect Neurological: [denies new onset weakness in extremities], [denies new onset balance issues] Objective:: Physical exam: Constitutional: Healthy appearing, well-developed, alert, in no acute distress Psychiatric: Judgment and insight intact, Alert and oriented x4 Mood and affect: Mood normal, affect appropriate Head and face: Inspection: Normocephalic atraumatic, extraocular movement intact Respiratory: Breathing nonlabored, nondyspneic Cardiovascular: No cyanosis, clubbing, or edema observed Skin: Head and neck: Skin with no lesions or rash observed Gait: Able to walk without assistive device: Able to heel and toe walk Neurologic: Sensation grossly intact per patient Musculoskeletal: Decreased range of motion cervical spine Assessment:: Myofascial pain syndrome, cervical postlaminectomy syndrome Plan:: We will set the patient up for physical therapy with decreased field we will also set her up for trigger point injections in several weeks. I will follow-up with her after this reassess her symptoms at that time she has been instructed to call the office if she has any issues prior to her next appointment. Time In:: 15:00 Time Out:: 15:10 [facility] History I have reviewed the patient's past medical history: Yes Medical History: Reports:: Hyperlipidemia, Hypertension Denies:: Cancer, Diabetes Mellitus Type 1, Diabetes Mellitus Type 2, MRSA, Seizures *Have you ever received a pneumonia vaccine?: Yes *Have you received a flu vaccine this season?: Yes Other Medical History: Reports: Arthritis, Hypothyroidism, Thyroid Disease, Other. Denies: Blood Transfusion Reaction, Radiation Therapy Other Surgeries: Yes: No Previous Surgery, Cholecystectomy, Colonoscopy, , EGD, Tubal Ligation, Other (pain pumpimplant, cervical fusion) Amputation: No Fractures: No - *Social History Smoking Status: Never smoker Alcohol Intake: never Alcohol Intake Frequency:: other Substance Use Type: denies use *Occupational Status:: disabled Housing: house Household Members: significant other *Travel in the last 8 weeks: None Family Hx:: Cancer, Diabetes, Heart Attack, Hypertension, Thyroid Disorder
== END ==
PROVIDERS: Visit Provider Clinical Nurse Specialist Family Health
DX: M79.18 Myalgia, other site (principal); M96.1 Postlaminectomy syndrome, not elsewhere classified

== ENCOUNTER 2021-04-07 14:17 | Day surgery (SDC) | payer OTHER, SELFPAY ==
[2021-04-07 14:24] VITALS: BP 156/99; PULSE 87; RESP 18; TEMP 36.6; O2SAT 99; BMI 33.0
[2021-04-07 14:26] VITALS: BP 138/88; PULSE 74; RESP 18; O2SAT 99
[2021-04-07 14:32] VITALS: BP 140/87; PULSE 74; RESP 18; O2SAT 98
--- NOTE | 2021-04-07 15:01 | HMH.PMPROC ---
- Procedure Date: 04/07/21 Time: 15:01 Anesthesiologist:: Ninoska Castillo APRN Complications:: None Pre-procedure Diagnosis:: Degenerative disc disease lumbar spine lumbar radiculopathy, degenerative disc disease cervical spine cervical radiculopathy, postlaminectomy syndrome Post-procedure Diagnosis:: Same Indications for Procedure:: Patient is pleasant 50-year-old white female presents today for intrathecal pain pump refill and reprogram. Patient rates her pain today a 4 out of 10 overall doing quite well. Patient denies any side effects to her intrathecal infusion. She is currently on 2.6 mg of Dilaudid a day. Patient's George reviewed and appropriate. Procedure Details:: Informed consent was obtained and the risk and benefits of the procedure were explained to the patient. The patient was taken to the procedure room where noninvasive monitoring was placed including noninvasive blood pressure cuff and pulse oximeter. Patient's pump was interrogated. The area over the pump was cleansed with chlorhexidine as a cleansing solution. In sterile fashion the pump was accessed with a 22-gauge needle. Approximately 5.5 mL mL's were removed of the pump solution and discarded appropriately. The pump was then refilled with 20 mL's of Dilaudid 10 mg/mL and bupivacaine 5 mg/mL. The needle was withdrawn and a bandage was placed over the puncture site. The infusion rate was reprogrammed to continued at 2.6 mg of Dilaudid a day.. The patient tolerated the procedure well. Plan and Disposition:: I will see the patient back at her next intrathecal pain pump refill and reprogram. She has been instructed to call the office if she has any issues prior to her next appointment. Dr. Boyce has reviewed this note and agrees with this plan of care. This note was dictated using voice recognition software and may contain errors or omissions
[2021-04-07 15:02] VITALS: BP 166/99; PULSE 87; RESP 20; O2SAT 98
== END 2021-04-07 15:03 | disposition home or self-care (01) ==
LOC: SC.PAINP 14:18
PROVIDERS: PCP Family Medicine; Visit Provider Clinical Nurse Specialist Family Health
DX: M51.16 Intervertebral disc disorders with radiculopathy, lumbar region (principal); M50.10 Cervical disc disorder with radiculopathy, unspecified cervical region; M96.1 Postlaminectomy syndrome, not elsewhere classified; I10 Essential (primary) hypertension; E78.5 Hyperlipidemia, unspecified; E03.9 Hypothyroidism, unspecified; Z88.0 Allergy status to penicillin; Z88.1 Allergy status to other antibiotic agents; Z88.8 Allergy status to other drugs, medicaments and biological substances; K21.9 Gastro-esophageal reflux disease without esophagitis; G43.909 Migraine, unspecified, not intractable, without status migrainosus
CPT/HCPCS: 95991

== ENCOUNTER 2021-05-05 15:08 | Day surgery (SDC) | payer OTHER, SELFPAY ==
[2021-05-05 15:19] VITALS: BP 153/89; PULSE 78; RESP 18; TEMP 36.6; O2SAT 98; BMI 34.7
[2021-05-05 15:57] VITALS: BP 150/78; PULSE 74; RESP 18; O2SAT 98
[2021-05-05 16:10] VITALS: BP 148/77; PULSE 88; RESP 20; O2SAT 97
--- NOTE | 2021-05-05 19:52 | P.PCN_ITS ---
- Procedure Date: 05/05/21 Time: 16:10 Anesthesiologist:: Afia Alejandro APRN Complications:: None Pre-procedure Diagnosis:: Myofascial pain, degenerative disc disease cervical spine with cervical radiculopathy symptoms and postlaminectomy syndrome, degenerative disc disease lumbar spine with lumbar radiculopathy symptoms Post-procedure Diagnosis:: Same Indications for Procedure:: Patient is a 50-year-old white female who presents today for myofascial pain to her upper trapezius and cervical paraspinous muscles. She will undergo trigger point injections. She has had these injections in the past which gave her between 3 to 6 months of relief up to 90%. She does continue with home stretching for pain relief as well. She does have an intrathecal pain pump that she is requesting an increase in today as well. She is currently on 2.6 mg/day. We will increase the patient. The patient's George and drug screens are appropriate. Physical exam General: Alert and oriented x3, no acute distress, pleasant and cooperative, [on room air] Lungs: Respirations even and unlabored, symmetrical chest expansion Eyes: PERRL Musculoskeletal: Flexion and extension of cervical spine somewhat guarded secondary to pain, deep tendon reflexes normal, strength in upper and lower extremities [5/5], normal gait noted Neurological: Speech clear, data analysis assistant equal, no gross sensory deficit Procedure Details:: Informed consent was obtained and the risk and benefits of the procedure was explained to the patient. Patient was taken to the procedure room. [Neck and upper trapezius area] were prepped using ChloraPrep. Trigger points were palpated and marked. Each of these trigger points were injected with bupivacaine 0.25% 3 mL and Depo-Medrol 10 mg. A total of[80] milligrams Depo- Medrol was used for bilateral trigger points of upper trapezius muscles and [cervical paraspinous muscles]. Bandages were placed over the injection sites. Patient tolerated procedure well with no complications. We then proceeded to the patient's intrathecal pain pump. Informed consent was obtained and the risk and benefits of the procedure were explained to the patient. Patient was taken to the procedure room where noninvasive monitoring was placed including noninvasive blood pressure cuff and pulse oximeter. Patient's pump was interrogated and was reprogrammed to Dilaudid at 2.8 mg/day. The patient tolerated the procedure well with no complications. Plan and Disposition:: We will see the patient back in the clinic at the next intrathecal refill. Patient has been instructed to contact the clinic with any concerns before the next appointment. Dr. Boyce has reviewed this note and agrees with this plan of care. This note was dictated using voice recognition software and make contain errors or omissions.
== END 2021-05-05 16:10 | disposition home or self-care (01) ==
LOC: SC.PAINP 05-06 08:48
PROVIDERS: PCP Family Medicine; Visit Provider Clinical Nurse Specialist Family Health
DX: M79.18 Myalgia, other site (principal); M50.10 Cervical disc disorder with radiculopathy, unspecified cervical region; M96.1 Postlaminectomy syndrome, not elsewhere classified; M51.16 Intervertebral disc disorders with radiculopathy, lumbar region
CPT/HCPCS: J1030

== ENCOUNTER → 2021-05-09 13:47 | Outpatient (POV) | payer OTHER, SELFPAY ==
--- NOTE | 2021-05-09 15:44 | HMH.PAINSOAP ---
[facility] Pain Management SOAP Note Subjective:: This patient is a pleasant 50-year-old white female who presents with neck and mid back pain related to myofascial pain, degenerative disc disease of the cervical spine with cervical radiculopathy symptoms and postlaminectomy syndrome, degenerative disease of lumbar spine with lumbar radiculopathy symptoms. At the last visit on 05/05/21, underwent trigger point injections to the upper trapezius and cervical paraspinal muscles. States that they helped somewhat but she received injections to more muscles in the past with better pain relief. She states that she also gets muscle tightness and spasms and has tried Robaxin, tizanidine, and baclofen with minimal pain relief. She is requesting refills on her tizanidine today. She also states that she has chronic nausea related to brain surgery that she has had in the past. She is currently taking Phenergan which helps alleviate some of the nausea symptoms. She is requesting refills on this medication today as well. Note, she also has an intrathecal pain pump that she reports is functioning appropriately and overall is controlling her pain. She is currently on Dilaudid 2.8 mg/day which was increased at the last visit. Objective:: General: Alert and oriented x3, no acute distress, pleasant and cooperative Lungs: Resps E/U, symmetric chest expansion Eyes: PERRL Musculoskeletal: limited flexion and extension of the lumbar spine secondary to pain. Deep tendon reflexes were normal in bilateral lower extremities. Motor exam was grossly intact in the bilateral lower extremities, antalgic gait noted. Neurological: Speech is clear, construction producer equal, no gross sensory deficits Assessment:: This patient is a very pleasant 50-year-old white female who we are treating for neck, mid back, and low back pain related to the above diagnosis. We discussed with her that we will refill her tizanidine today and Phenergan. I also recommended that she discuss her chronic nausea with her primary care physician for optimal patient care. I will also schedule her for trigger point injections to the splenius capitis splenius services cervicals paraspinal and upper trapezius muscles. [facility] History Medical History: Reports:: Hyperlipidemia, Hypertension, Myocardial Infarction Denies:: Cancer, Diabetes Mellitus Type 1, Diabetes Mellitus Type 2, MRSA, Seizures *Have you ever received a pneumonia vaccine?: No *Have you received a flu vaccine this season?: No Other Medical History: Reports: Arthritis, Hypothyroidism, Thyroid Disease, Other. Denies: Blood Transfusion Reaction, Radiation Therapy Other Surgeries: Yes: No Previous Surgery, Cardiac Catheterization, Cholecystectomy, Colonoscopy, , EGD, Tubal Ligation, Other Amputation: No Fractures: No - *Social History Smoking Status: Never smoker Alcohol Intake: never Alcohol Intake Frequency:: other Substance Use Type: denies use *Occupational Status:: unemployed Housing: house Household Members: significant other *Travel in the last 8 weeks: None Family Hx:: No significant family history
== END ==
PROVIDERS: PCP Family Medicine; Visit Provider Anesthesiology Pain Medicine
DX: M50.10 Cervical disc disorder with radiculopathy, unspecified cervical region (principal); M51.16 Intervertebral disc disorders with radiculopathy, lumbar region; M96.1 Postlaminectomy syndrome, not elsewhere classified
CPT/HCPCS: 99212; G0463

== ENCOUNTER → 2021-05-15 14:16 | Outpatient (CLI) | payer OTHER, SELFPAY ==
--- NOTE | 2021-05-15 14:16 | XR_ITS ---
PROCEDURE: XR DEXA AXIAL SKELETON CLINICAL HISTORY: degenerative spine COMPARISON: CR BONE3 BONE DENSITOMETRY(HIP:LT SPINE from 08/04/2017 FINDINGS: The right hip BMD is 0.908 with a T-score of 0.5. The left hip BMD is 0.886 with a T-score of 0.3. The lumbar spine BMD is 1.207 with a T-score of 1.5. Previously the lowest density was in the left femoral neck T-score is 0.8 IMPRESSION: This patient is considered normal according to the World Health Organization criteria. Fracture risk is low. Based on these results a follow-up exam is recommended in 2 year. Dictated by: Antwan Akhtar MD 05/16/2021 04:40 Antwan Akhtar MD in [place] 05/16/2021 04:40
== END ==
PROVIDERS: PCP Family Medicine; Visit Provider Obstetrics & Gynecology
DX: M47.9 Spondylosis, unspecified (principal)
CPT/HCPCS: 77080

== ENCOUNTER 2021-05-16 14:16 | Day surgery (SDC) | payer OTHER, SELFPAY ==
--- NOTE | 2021-05-16 08:47 | PC.NURSE ---
called in Rx for Phenergan 12.5mg PO Q8hprn n/v with no refill and tizanidine 2mg TIDPRN muscle spasms with no refills per Dr. Mullins verbal order.
[2021-05-16 15:03] VITALS: BP 142/80; PULSE 72; RESP 18; TEMP 36.7; O2SAT 97; BMI 35.2
[2021-05-16 17:03] VITALS: BP 151/90; PULSE 66; RESP 18; O2SAT 95
[2021-05-16 17:05] VITALS: BP 146/79; PULSE 67; RESP 18; O2SAT 98
--- NOTE | 2021-05-16 17:14 | P.PCN_ITS ---
- Procedure Date: 05/16/21 Time: 17:15 Anesthesiologist:: Martha Mullins MD Complications:: None Pre-procedure Diagnosis:: Myofascial pain syndrome, chronic neck pain, chronic shoulder pain Post-procedure Diagnosis:: Same Indications for Procedure:: Patient is a very pleasant 50-year-old white female who presents today with chronic neck and chronic shoulder pain bilaterally. Been treating her for her myofascial pain, degenerative disc disease of the cervical spine with cervical radiculopathy symptoms and postlaminectomy syndrome, degenerative disease of the lumbar spine with lumbar radiculopathy symptoms. She previously underwent trigger point injections to the upper trapezius and cervical paraspinal muscles on May 05, 2021. She states that they helped somewhat but very very short lasting. Is also previously been on multiple muscle relaxants for this pain with minimal pain relief. Failed conservative treatment including oral pain medications and physical therapy for greater than 6 weeks. The plan for today is for her to undergo trigger point injections to the bilateral splenius capitis, splenius cervicis and cervical paraspinal muscles. Procedure Details:: Informed consent was obtained and the risk and benefits of the procedure was explained to the patient. Patient was taken to the procedure room. [Neck and upper trapezius area] were prepped using ChloraPrep. Trigger points were palpated and marked. Each of these trigger points were injected with bupivacaine 0.25% 2 mL and Depo-Medrol 40 mg. A total of[80] milligrams Depo-M edrol was used for bilateral trigger points of upper trapezius muscles and splenius capitis, splenius cervicis muscles bilaterally]. Bandages were placed over the injection sites. Patient tolerated procedure well with no complications. Plan and Disposition:: We will follow-up with this patient in 2 weeks. Will reevaluate pain symptoms at that time. I discussed with her today that we may consider restarting physical therapy with an emphasis on myofascial pain syndrome for myofascial release, strengthening and stretching of the neck and shoulder muscles, scapular retraining, home center size program, deep heat/ice therapy, treatment modalities for pain control as per PT.
[2021-05-16 17:30] VITALS: BP 142/80; PULSE 72; RESP 20; O2SAT 97
== END 2021-05-16 17:30 | disposition home or self-care (01) ==
LOC: SC.PAINP 14:16
PROVIDERS: PCP Family Medicine; Visit Provider Anesthesiology Pain Medicine
DX: M79.18 Myalgia, other site (principal); M54.2 Cervicalgia; M25.519 Pain in unspecified shoulder; G89.29 Other chronic pain; E03.9 Hypothyroidism, unspecified; I25.2 Old myocardial infarction; E78.5 Hyperlipidemia, unspecified; I10 Essential (primary) hypertension; M19.90 Unspecified osteoarthritis, unspecified site
CPT/HCPCS: 20553; J1030

== ENCOUNTER 2021-06-02 14:57 | Day surgery (SDC) | payer OTHER, SELFPAY ==
[2021-06-02 14:58] VITALS: BP 124/62; PULSE 79; RESP 18; TEMP 37.1; O2SAT 98; BMI 35.7
[2021-06-02 15:13] VITALS: BP 123/84; PULSE 76; RESP 18; O2SAT 97
[2021-06-02 15:14] VITALS: BP 139/85; PULSE 78; RESP 18; O2SAT 97
--- NOTE | 2021-06-02 15:26 | HMH.PMPROC ---
- Procedure Date: 06/02/21 Time: 15:26 Anesthesiologist:: Afia Alejandro APRN Complications:: None Pre-procedure Diagnosis:: Myofascial pain cervical, thoracic, lumbar paraspinous muscles, degenerative disc disease lumbar spine and cervical spine with cervical and lumbar radiculopathy symptoms Post-procedure Diagnosis:: Same Indications for Procedure:: Patient is a 50-year-old white female who presents today for intrathecal pain pump refill and reprogram. She has been treated for degenerative disc disease cervical and lumbar spine with cervical and lumbar radiculopathy symptoms and for myofascial pain cervical, thoracic, and lumbar spine. She rates her pain a 7 out of 10 and would like an increase today. She is currently on 2.85 mg/day and bupivacaine at 1.425 mg/day and denies any side effects. She would like an increase. Her George and drug screen are appropriate. She and has undergone trigger point injections to her cervical, thoracic and lumbar spine in the past and would like repeat injections. She gets up to 80 to 90% relief for 2 to 3 weeks with the injections. We will schedule her for the injections. She also reports that Dr. Mullins did discuss with her increasing her gabapentin at her last visit. She is continuing to have numbness and tingling in her bilateral lower extremities. She says that she was previously on gabapentin 800 mg 1 tablet p.o. 3 times daily. She understands we will not be able to increase her to this dose at this time however we can increase her and her current dosing. Physical exam General: Alert and oriented x3, no acute distress, pleasant and cooperative, [on room air] Lungs: Respirations even and unlabored, symmetrical chest expansion Eyes: PERRL Musculoskeletal: Flexion and extension of cervical, thoracic, and lumbar spine somewhat guarded secondary to pain, deep tendon reflexes normal, strength in upper and lower extremities [5/5], antalgic gait noted Neurological: Speech clear, digital content specialist equal, no gross sensory deficit Procedure Details:: Informed consent was obtained and the risk and benefits of the procedure were explained to the patient. The patient was taken to the procedure room where noninvasive monitoring was placed including noninvasive blood pressure cuff and pulse oximeter. Patient's pump was interrogated. The area over the pump was cleansed with chlorhexidine as a cleansing solution. In sterile fashion the pump was accessed with a 22-gauge needle. Approximately 4 mls of the pump solution was removed and discarded appropriately. The pump was then refilled with 20 mL's of Dilaudid 10 mg/mL and bupivacaine 5 mg per male. The needle was withdrawn and a bandage was placed over the puncture site. The infusion rate was reprogrammed at Dilaudid 3.125 mg/day and bupivacaine 1.5625 mg/day. The patient tolerated well with no complication. Plan and Disposition:: We will schedule patient for trigger point injections for her myofascial pain to her cervical, thoracic, and lumbar paraspinous muscles. We will increase her gabapentin to 300 mg 1 tablet p.o. twice daily. We will see her back at her next intrathecal refill date as well.
[2021-06-02 15:41] VITALS: BP 142/84; PULSE 73; RESP 18; O2SAT 98
== END 2021-06-02 15:42 | disposition home or self-care (01) ==
LOC: SC.PAINP 14:57
PROVIDERS: PCP Family Medicine; Visit Provider Clinical Nurse Specialist Family Health
DX: M79.18 Myalgia, other site (principal); M51.16 Intervertebral disc disorders with radiculopathy, lumbar region; M50.10 Cervical disc disorder with radiculopathy, unspecified cervical region; E03.9 Hypothyroidism, unspecified; E78.5 Hyperlipidemia, unspecified; I10 Essential (primary) hypertension; M19.90 Unspecified osteoarthritis, unspecified site; K21.9 Gastro-esophageal reflux disease without esophagitis; F41.9 Anxiety disorder, unspecified; F32.9 Major depressive disorder, single episode, unspecified; Z88.0 Allergy status to penicillin; Z88.1 Allergy status to other antibiotic agents
CPT/HCPCS: 62370

== ENCOUNTER 2021-06-11 11:28 | Day surgery (SDC) | payer OTHER, SELFPAY ==
[2021-06-11 11:46] VITALS: BP 122/81; PULSE 67; RESP 18; TEMP 36.4; O2SAT 98; BMI 35.2
--- NOTE | 2021-06-11 12:27 | P.PCN_ITS ---
- Procedure Date: 06/11/21 Time: 12:27 Anesthesiologist:: Martha Mullins MD Complications:: None Pre-procedure Diagnosis:: Myofascial pain cervical, thoracic, lumbar paraspinal muscles, degenerative disc disease lumbar spine and cervical spine with cervical and lumbar radiculopathy symptoms Post-procedure Diagnosis:: Same Indications for Procedure:: Patient is a very pleasant 50-year-old white female who presents today with neck and shoulder pain related to myofascial pain syndrome. She has previously undergone trigger point injections in the past and noted about 80 to 90% pain re lief with the previous injections. She has an intrathecal pain pump and is currently on Dilaudid 10 mg/mL at 2.85 mg/day and bupivacaine 5 mg/mL at 1.425 mg/day. He is also taking gabapentin 300 mg 1 tablet p.o. twice daily. She is requesting repeat trigger point injections today. The plan for today is for the patient to undergo repeat trigger point injections to her cervical thoracic and lumbar paraspinal muscles. Procedure Details:: Informed consent was obtained and the risk and benefits of the procedure was explained to the patient. Patient was taken to the procedure room. [Neck and upper trapezius, mid back, and low back area] were prepped using ChloraPrep. Trigger points were palpated and marked. Each of these trigger points were injected with bupivacaine 0.25% 2 mL and Depo-Medrol 40 mg. A total of[80] milligrams Depo-Medrol was used for bilateral trigger points of upper trapezius muscles and cervical, thoracic, and lumbar paraspinal muscles muscles bilaterally]. Bandages were placed over the injection sites. Patient tolerated procedure well with no complications. Plan and Disposition:: We will follow-up with the patient in 2 weeks. Will reevaluate pain symptoms at that time. I will refer her to physical therapy today for myofascial pain with an emphasis on stretching/strengthening of her muscles, deep heat, myofascial release, scapular retraining, home exercise program, and other treatment modalities as per PT I also discussed with her that she needs to start taking gabapentin 300 mg twice daily for her myofascial pain syndrome and neuropathic pain. She states that she recently got her gabapentin filled last week but only got 30 tablets for 1 month supply. I discussed with her to increase her antonio apentin to 2 tabs per day and she will likely run out earlier because of this. She is to contact her clinic 3 to 4 days prior to running out so we can refill her medication. I believe she may benefit from further up titration of gabapentin to 3 times daily at the next clinic visit should pain symptoms persist. Also, she may benefit from the addition of Cymbalta for mood/additional neuropathic pain coverage.
[2021-06-11 12:34] VITALS: BP 134/93; PULSE 62; RESP 18; O2SAT 96
[2021-06-11 12:44] VITALS: BP 138/89; PULSE 65; RESP 18; O2SAT 96
[2021-06-11 13:00] VITALS: BP 138/85; PULSE 71; RESP 18; O2SAT 98
== END 2021-06-11 13:00 | disposition home or self-care (01) ==
LOC: SC.PAINP 11:32
PROVIDERS: PCP Family Medicine; Visit Provider Anesthesiology Pain Medicine
DX: M79.18 Myalgia, other site (principal); M50.10 Cervical disc disorder with radiculopathy, unspecified cervical region; M51.16 Intervertebral disc disorders with radiculopathy, lumbar region
CPT/HCPCS: 20553; J1030

== ENCOUNTER → 2021-07-14 13:35 | Outpatient (POV) | payer OTHER, SELFPAY ==
[2021-07-14 13:40] VITALS: BP 131/68; PULSE 74; RESP 18; O2SAT 96; BMI 34.9
--- NOTE | 2021-07-14 14:50 | HMH.PAINSOAP ---
[facility] Pain Management SOAP Note Subjective:: Patient is a 50-year-old white female who presents today for follow-up. She has been treated for myofascial pain cervical, thoracic, lumbar paraspinous muscles. She also has an intrathecal pain pump and spinal cord stimulator. Patient rates her pain a 8 out of 10 today. She is having pain in her neck as well as her mid back and low back pain. She says that her pain is radiating into her bilateral shoulders as well. She says that her pain is improved with trigger point injections. She gets up to 70 to 80% relief with these injections. She did recently undergo trigger point injections to her cervical, thoracic and lumbar paraspinous muscles on 06/11/2021. She is here today for scheduling of repeat injections to her cervical paraspinous muscles and upper trapezius area. She says that she gets up to 2 to 3 weeks of relief with the injections. Patient has requested also a change in her medication dosing. She says that she has tried fentanyl with her intrathecal therapy and is not getting significant relief. She would like to discuss a change in the medication with Dr. Mullins. She would like Dr. Mullins to perform her trigger point injections. Patient says she did discuss medications with a another patient that we have, Trell Cardenas. She says that she would like to discuss changing to fentanyl in her intrathecal pump. The patient is also requesting an increase in the corticosteroid given to her in her cervical paraspinous muscles with her trigger points. She does have notable trigger points today with tenderness to palpation. Review of Systems General: No recent weight changes, no fever, no sleep disturbances Respiratory: No cough, no shortness of air, no recurring pulmonary infections Cardiovascular/peripheral vascular: No chest pain, no palpitations, no edema, no shortness of breath Gastrointestinal: No new onset incontinence, normal bowel movements reported Genitourinary: No new onset incontinence Musculoskeletal: Neck pain, bilateral shoulder pain Psychiatric: [Normal mood/affect] Neurological: [Denies weakness in extremities], [denies balance issues] Objective:: Physical exam General: Alert and oriented x3, no acute distress, pleasant and cooperative, [on room air] Lungs: Respirations even and unlabored, symmetrical chest expansion Eyes: PERRL Musculoskeletal: Flexion and extension of cervical [spine] somewhat guarded secondary to pain, strength in upper and lower extremities [5/5], lightly antalgic gait noted Neurological: Speech clear, [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 Patient will discuss with Dr. Mullins at this visit increasing the corticosteroid dosing. She also plans to discuss a change in her intrathecal therapy from Dilaudid to fentanyl. She currently has Dilaudid/bupivacaine in her pump with Dilaudid at 2.85 mg/day and bupivacaine at 1.425 mg/day. She does not feel the intrathecal therapy is giving her significant relief. We will see the patient back after her trigger points. She does plan to request injections to her thoracic paraspinous muscles after her cervical paraspinous and upper trapezius muscle injections are performed. Risks and benefits of the procedure have been explained to the patient. Patient would like to proceed with the procedure. Possible side effects of corticosteroids have been discussed with the patient. Patient has been instructed to contact the clinic with any concerns before the next appointment. Dr. Boyce has reviewed this note and agrees with this plan of care. This note was dictated using voice recognition software and make contain errors or omissions. [facility] History I have reviewed the patient's past medical history: Yes Medical
== END ==
PROVIDERS: PCP Family Medicine; Visit Provider Clinical Nurse Specialist Family Health
DX: M79.18 Myalgia, other site (principal)
CPT/HCPCS: 99212; G0463

== ENCOUNTER 2021-07-18 12:06 | Day surgery (SDC) | payer OTHER, SELFPAY ==
[2021-07-18 12:08] VITALS: BP 129/81; PULSE 75; RESP 18; TEMP 36.4; O2SAT 98; BMI 35.7
[2021-07-18 13:18] VITALS: BP 134/72; PULSE 69; RESP 20; O2SAT 98
[2021-07-18 13:36] VITALS: BP 138/72; PULSE 69; RESP 18; O2SAT 98
[2021-07-18 13:39] VITALS: BP 139/70; PULSE 71; RESP 18; O2SAT 98
--- NOTE | 2021-07-18 14:02 | HMH.PMPROC ---
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 She has previously undergone trigger point injections in the past and noted about 80 to 90% pain relief with the previous injections, most recent injection and last month. She has an intrathecal pain pump and is currently on Dilaudid 10 mg/mL at 2.85 mg/day and bupivacaine 5 mg/mL at 1.425 mg/day. She is also taking gabapentin 300 mg 1 tablet p.o. twice daily. She is requesting repeat trigger point injections today. Of note, she also has been complaining of worsening low back pain rating into her legs going down to the level of her feet bilaterally. Exam reveals limited lumbar flexion and extension secondary to pain, deep tendon reflexes are normal in the lower extremities and motor exam is 5 out of 5 in the upper and lower extremities. There is a positive straight leg raise on the right. Multiple active trigger points in the cervical and thoracic paraspinal muscles as well as her upper trapezius and latissimus dorsi muscles bilaterally. The plan for today is for the patient to undergo repeat trigger point injections to her cervical and thoracic paraspinal muscles as well as her upper trapezius and latissimus dorsi muscles bilaterally. Procedure Details:: Informed consent was obtained and the risk and benefits of the procedure was explained to the patient. Patient was taken to the procedure room. [Neck and upper trapezius, mid back, and low back area] were prepped using ChloraPrep. Trigger points were palpated and marked. Each of these trigger points were injected with bupivacaine 0.25% 2 mL and Depo-Medrol 40 mg. A total of[80] milligrams Depo-Medrol was used for bilateral trigger points of upper trapezius muscles and cervical and thoracic paraspinal muscles muscles bilaterally as well as upper trapezius and latissimus dorsi muscles bilaterally]. Bandages were placed over the injection sites. Patient tolerated procedure well with no complications. Plan and Disposition:: We will follow-up with the patient in 2 weeks. Will reevaluate pain symptoms at that time. I discussed with the patient to continue physical therapy as well. We will also schedule her for a lumbar epidural steroid injection to help treat degenerative disc disease of lumbar spine with lumbar radiculopathy symptoms.
== END 2021-07-18 13:19 | disposition home or self-care (01) ==
LOC: SC.PAINP 12:06
PROVIDERS: PCP Family Medicine; Visit Provider Anesthesiology Pain Medicine
DX: M79.18 Myalgia, other site (principal); M50.10 Cervical disc disorder with radiculopathy, unspecified cervical region; M51.16 Intervertebral disc disorders with radiculopathy, lumbar region; I25.2 Old myocardial infarction; E78.5 Hyperlipidemia, unspecified; I10 Essential (primary) hypertension; E03.9 Hypothyroidism, unspecified; J45.909 Unspecified asthma, uncomplicated; F41.9 Anxiety disorder, unspecified; F32.9 Major depressive disorder, single episode, unspecified; Z88.0 Allergy status to penicillin; Z88.1 Allergy status to other antibiotic agents
CPT/HCPCS: 20553; J1030

== ENCOUNTER 2021-07-21 14:59 | Day surgery (SDC) | payer OTHER, SELFPAY ==
--- NOTE | 2021-07-21 15:03 | P.PCN_ITS ---
- Procedure Date: 07/21/21 Time: 15:03 Anesthesiologist:: Afia Alejandro APRN Complications:: None Pre-procedure Diagnosis:: Degenerative disc disease lumbar spine with lumbar radiculopathy symptoms Post-procedure Diagnosis:: Same Indications for Procedure:: Patient is a 50-year-old white female who presents today for intrathecal pain pump refill and reprogram. She is being treated for degenerative disc disease cervical and lumbar spine with lumbar radiculopathy symptoms. Patient does have chronic myofascial pain as well. She does undergo trigger point injections often. She recently had trigger point injections to her cervical paraspinous muscles. Today, the patient rates her pain a. She is managed with intrathecal therapy of Dilaudid/bupivacaine at 3.125 mg/day. She denies any side effects. She is also on tizanidine 4 mg 1 tablet p.o. 3 times daily. Physical exam General: Alert and oriented x3, no acute distress, pleasant and cooperative, [on room air] Lungs: Respirations even and unlabored, symmetrical chest expansion Eyes: PERRL Musculoskeletal: Flexion and extension of cervical and lumbar [spine] somewhat guarded secondary to pain, strength in upper and lower extremities [5/5], [antalgic gait noted] Neurological: Speech clear, [hardness inspector equal], no gross sensory deficit Procedure Details:: Informed consent was obtained and the risk and benefits of the procedure were explained to the patient. The patient was taken to the procedure room where noninvasive monitoring was placed including noninvasive blood pressure cuff and pulse oximeter. Patient's pump was interrogated. The area over the pump was cleansed with chlorhexidine as a cleansing solution. In sterile fashion the pump was accessed with a 22-gauge needle. Approximately 4.5 mls of the pump solution was removed and discarded appropriately. The pump was then refilled with 20 mL's of Dilaudid 10 mg per male and bupivacaine at 5 mg per mill. The needle was withdrawn and a bandage was placed over the puncture site. The infusion rate was reprogrammed at Dilaudid/bupivacaine at 3.75 mg/day. The patient tolerated well with no complication. Plan and Disposition:: We will increase the patient's concentration of medication to Dilaudid 15 mg per ml and bupivacaine 5 mg/mL at the next visit. We will see the patient back in the clinic at the next intrathecal refill. Patient has been instructed to contact the clinic with any concerns before the next appointment. Dr. Boyce has reviewed this note and agrees with this plan of care. This note was dictated using voice recognition software and make contain errors or omissions.
[2021-07-21 15:05] VITALS: BP 125/74; PULSE 64; RESP 20; TEMP 36.4; O2SAT 98; BMI 35.7
[2021-07-21 15:09] VITALS: BP 125/64; PULSE 58; RESP 18; O2SAT 96
[2021-07-21 15:10] VITALS: BP 125/64; PULSE 60; RESP 18; O2SAT 97
[2021-07-21 15:30] VITALS: BP 126/82; PULSE 65; RESP 20; O2SAT 98
== END 2021-07-21 15:30 | disposition home or self-care (01) ==
LOC: SC.PAINP 15:00
PROVIDERS: PCP Family Medicine; Visit Provider Clinical Nurse Specialist Family Health
DX: M51.16 Intervertebral disc disorders with radiculopathy, lumbar region (principal); Z45.1 Encounter for adjustment and management of infusion pump
CPT/HCPCS: 62370

== ENCOUNTER → 2021-08-04 15:31 | Outpatient (CLI) | payer OTHER, SELFPAY ==
--- NOTE | 2021-08-04 15:34 | CA_ITS ---
APPROVED REPORT Left Lower Extremity Venous Study for DVT. Moderate Needs Teacher: Viviane Sánchez RVT Indications Lower Extremity Pain: Left Lower Extremity Edema: Left lower extremity pain, suspicion for blood clot,redness lt medial lower leg Vein Imaging CFV (L): compressive, spontaneous, phasic, augmentation FEM (L): compressive, spontaneous, phasic, augmentation POP (L): compressive, spontaneous, phasic, augmentation PTV (L): Compressible GSV (L): Compressible Peroneals (L):Compressible GAS (L): Compressible Findings Study suggests no evidence of DVT or SVT of the left lower extremity. Conclusion Study suggests no evidence of DVT or SVT of the left lower extremity. Critical Notification Date: 08/04/2021 Time: 16:04 Physician Name: Kimberly Parker's office Electronically signed by : Antwan Akhtar MD 08/05/2021 16:45:33
== END ==
PROVIDERS: PCP Family Medicine; Visit Provider Podiatrist
DX: M79.662 Pain in left lower leg (principal)
CPT/HCPCS: 93971

== ENCOUNTER → 2021-08-12 12:39 | Outpatient (CLI) | payer OTHER, SELFPAY ==
--- NOTE | 2021-08-12 12:48 | MR_ITS ---
PROCEDURE: MR LUMBAR SPINE WO CON CLINICAL INDICATION: LUMBAR SPINE PAIN COMPARISON: MR MR ANKLE LT WO CON from 08/28/2020 TECHNIQUE: Standard multiplanar multiecho sequences are performed without contrast. 3-D MIP and myelographic images are also rendered and reviewed FINDINGS: Significant artifact is present from patient's pain pump limiting evaluation of multiple disc levels. There does appear to be good alignment. There is mild degenerative disc disease at T11-S1. Minimal bulging disc is present at L2-L3 which appears slightly eccentric toward the left causing mild left-sided foraminal narrowing. Facet and ligamentum hypertrophy is present at this level as well. There is mild left lateral recess narrowing. Bulging disc is also noted at L3-L4 with mild bilateral foraminal narrowing and facet hypertrophy with bilateral lateral recess narrowing. The L4-L5 and L5-S1 interspaces are not adequately evaluated. IMPRESSION: Significant artifact from patient's pain pump causing very limited evaluation. There is mild degenerative disc disease at T11-S1. Minimal bulging disc is present at L2-L3 which appears slightly eccentric toward the left causing mild left-sided foraminal narrowing. Facet and ligamentum hypertrophy is present at this level as well. There is mild left lateral recess narrowing. Bulging disc is also noted at L3-L4 with mild bilateral foraminal narrowing and facet hypertrophy with bilateral lateral recess narrowing. The the L4-L5 and L5-S1 interspaces are not adequately evaluated Dictated by: Antwan Akhtar MD 08/13/2021 12:31 Antwan Akhtar MD in [place] 08/13/2021 12:31
== END ==
PROVIDERS: PCP Family Medicine; Visit Provider Orthopaedic Surgery
DX: M54.5 Low back pain (principal)
CPT/HCPCS: 72148; 76376

== ENCOUNTER 2021-08-22 18:33 | Emergency (ER) | payer OTHER, SELFPAY ==
[2021-08-22 18:23] VITALS: BP 129/77; PULSE 81; RESP 16; TEMP 36.8; O2SAT 92; BMI 31.1
--- NOTE | 2021-08-22 18:39 | XR_ITS ---
PROCEDURE INFORMATION: Exam: XR Chest Exam date and time: 08/22/2021 6:39 PM Age: 51 years old Clinical indication: Shortness of breath; Additional info: Covid pos, SOA TECHNIQUE: Imaging protocol: XR of the chest. AP portable upright exam 6:55 p.m. Views: 1 view. COMPARISON: CR XR CHEST 2V 01/29/2021 9:00 PM FINDINGS: Lungs: Significantly worsened patchy subsegmental atelectasis in the lower lobes, compared with the previous exam from 01/29/2021. Slight hazy airspace opacities in the lower lungs which could be due to subtle ground-glass infiltrates of COVID-19 pneumonia, considering the clinical history. No focal consolidation. Chronic calcified left pulmonary granuloma. Pleural spaces: Unremarkable. No significant pleural effusion. No pneumothorax. Heart/Mediastinum: The cardiac silhouette is normal. Bones/joints: Chronic lower cervical spine fusion hardware which appears grossly intact.There is no evidence of acute fracture. IMPRESSION: 1. Prominent patchy subsegmental atelectasis in the lower lobes. Some hazy lower lobe opacities may be subtle ground-glass pneumonia, in this patient with history of COVID-19. This could be more accurately evaluated with CT, if clinically indicated. 2. Additional nonemergency and chronic findings as above.
--- NOTE | 2021-08-22 18:48 | ECG_ITS ---
APPROVED REPORT Exam: Resting ECG HR:79 bpm ECG Measurements Heart Rate 79 AXES HI 146 P 27 QRSd 82 QRS 16 QT 368 T 43 QTc 421 Conclusion Normal sinus rhythm Normal ECG Electronically signed by : Reji Spencer MD 08/23/2021 12:47:29
[2021-08-22 19:00] VITALS: BP 143/85; PULSE 79; RESP 14; O2SAT 97
--- NOTE | 2021-08-22 19:28 | PC.NURSE ---
Pt's friend call for an update, Horacio Henry.Per pt, ok to give updates to him.
[2021-08-22 19:48] LABS: Basophils % 1.1 % (0.1-2.0); Eosinophils # 0.1 K/mm3 (0.0-0.4); Eosinophils % 1.6 % (0.1-12.0); Hematocrit 45.6 % (37.0-47.0); Hemoglobin 14.8 g/dL (12.2-16.2); Lymphocytes # 1.3 K/mm3 (0.7-4.5); Lymphocytes % 31.7 % (10-50); Mean Corpuscular HGB Conc 32.5 g/dL (31.8-35.4); Mean Corpuscular Hemoglobin 29.7 pg (27.0-31.2); Mean Corpuscular Volume 91.2 fl (81-99); Mean Platelet Volume 9.5 fl (7.4-10.4); Monocytes # 0.1 K/mm3 (0.1-1.0); Monocytes % 3.5 % (1.7-9.3); Neutrophils # 2.6 K/mm3 (1.8-7.8); Neutrophils % 62.1 % (37.0-80.0); Platelet Count 178 K/mm3 (142-424); Red Cell Distribution Width 13.5 % (11.5-17.5); White Blood Count 4.1 K/mm3 (4.8-10.8)
[2021-08-22 19:52] LABS: Chloride 96 mmol/L (98-107); Sodium 138 mmol/L (136-145)
[2021-08-22 19:53] LABS: Potassium 3.6 mmoL/L (3.5-5.1)
[2021-08-22 19:55] LABS: Alanine Aminotransferase 29 U/L (12-78); Albumin Level 4.4 g/dl (3.5-5.0); Albumin/Globulin Ratio 1.2 (1.1-1.8); Alkaline Phosphatase 86 U/L (38-126); Aspartate Amino Transferase 52 U/L (14-36); Bilirubin,Total 0.3 mg/dl (0.2-1.3); Blood Urea Nitrogen 18 mg/dl (7-17); Calcium 9.2 mg/dl (8.4-10.2); Carbon Dioxide 30 mmol/L (22.0-30.0); Creatinine Clearance Estimated 99 mL/min (50-200); Estimated Glomerular Filt Rate 75 ml/min (>60); GFR (African American) 91 ML/MIN (>60); Globulin 3.8 g/dL (1.3-3.2); Glucose 81 mg/dl (74-100); Total Protein,Serum 8.2 g/dl (6.3-8.2)
--- NOTE | 2021-08-22 19:58 | HMH.EDSOB ---
ED Disposition Clinical Impression: Acute COVID-19 Disposition: Home, Self-Care Condition on Discharge: Good Instructions: DI for COVID-19 (Suspected or Confirmed ) Additional Instructions: will have pt call pcp for follow up Prescriptions: dexAMETHasone [Decadron] 6 mg PO DAILY #7 tab Transmission Status: Pending to [facility] # Azithromycin [Zithromax 250mg tab] 250 mg PO DIRECTED #6 tab Transmission Status: Pending to [facility] # Referrals: Gayla Galan MD [Primary Care Provider] - - Critical Care Critical Care Time: No Attestation: On 08/22/21, the high probability of a clinically significant, sudden or life threatening deterioration of the following system(s) required my full and direct attention, intervention and personal management. The time I documented below is in addition to time spent performing reported procedures but includes the following listed in this critical care notation. Medical Decision Making - Medical Records Medical records reviewed: Yes: I reviewed the patient's medical records. - George Inquiry Pt receiving controlled substance: No Vital Signs: 08/22/21 18:23 08/22/21 19:00 08/22/21 22:05 Temperature 98.2 F Temperature Source Oral Pulse Rate 79 86 Pulse Rate [Right Radial] 81 Respiratory Rate 16 14 14 Blood Pressure 143/85 H 153/89 H Blood Pressure [Right Arm] 129/77 Blood Pressure Mean 101 101 Blood Pressure Mean [Right Arm] 94 02 Sat by Pulse Oximetry 92 L 97 95 Oxygen Delivery Method Room Air - Lab Data Lab results reviewed: Yes: I reviewed the patient's lab results. Lab Results 08/22/21 19:25: WBC 4.1 L, RBC 5.00, Hgb 14.8, Hct 45.6, MCV 91.2, MCH 29.7, MCHC 32.5, RDW 13.5, Plt Count 178, MPV 9.5, Neut % (Auto) 62.1, Lymph % (Auto) 31.7, [place] % (Auto) 3.5, Eos % (Auto) 1.6, Baso % (Auto) 1.1, Neut # (Auto) 2.6, Lymph # (Auto) 1.3, [place] # (Auto) 0.1, Eos # (Auto) 0.1, Baso # (Auto) 0.0 08/22/21 19:25: Sodium 138, Potassium 3.6, Chloride 96 L, Carbon Dioxide 30, Anion Gap 15.0, BUN 18 H, Creatinine 0.80, Estimated Creat Clear 99, Estimated GFR 75, Est GFR ( Amer) 91, Glucose 81, Calcium 9.2, Total Bilirubin 0.3, AST 52 H, ALT 29, Alkaline Phosphatase 86, Troponin I < 0.01, Total Protein 8.2, Albumin 4.4, Globulin 3.8 H, Albumin/Globulin Ratio 1.2 08/22/21 19:25: Lactate 1.0 08/22/21 20:08: SARS-CoV-2 (PCR) Detected A, Influenza A Untype (PCR) Not detected, Influenza Type B (PCR) Not detected Result diagrams: 08/22/21 19:25 08/22/21 19:25 Orders (Tests/Meds): ED MEDICATIONS Generic Name Dose Route Start Last Admin Trade Name Freq PRN Reason Stop Dose Admin Sodium Chloride 1,000 mls @ 999 mls/hr 08/22/21 22:00 08/22/21 21:56 Sod Chlor 0.9% 1000ml Bag IV 08/22/21 23:00 999 mls/hr .Q1H1M WALLY Administration Discontinued Medications Generic Name Dose Route Start Last Admin Trade Name Freq PRN Reason Stop Dose Admin Dexamethasone Sodium Phosphate 10 mg 08/22/21 22:16 08/22/21 22:17 Dexamethasone 4mg/Ml 5ml Mdv IV 08/22/21 22:17 10 mg ONCE ONE Administration Iopamidol 70 ml 08/22/21 21:07 08/22/21 21:07 Iopamidol-370 (76%);100ml Bottle IV 08/22/21 21:08 70 ml ONCE ONE Administration Levofloxacin 500 mg 08/22/21 22:33 08/22/21 22:35 Levofloxacin 500mg Tab PO 08/22/21 22:34 500 mg ONCE ONE Administration Promethazine HCl 25 mg 08/22/21 21:54 08/22/21 21:56 Promethazine Hcl 25mg/Ml 1ml Vial IV 08/22/21 21:55 25 mg ONCE ONE Administration Sodium Chloride 50 ml 08/22/21 21:07 08/22/21 21:07 0.9 % Sodium Chloride 50 Ml Vial IV 08/22/21 21:08 50 ml ONCE ONE Administration Sodium Chloride 10 ml 08/22/21 21:07 08/22/21 21:07 Sodium Chloride 0.9% 10ml Syr (Rad Only) IV 08/22/21 21:08 10 ml ONCE ONE Administration Sodium Chloride 25 ml 08/22/21 21:54 08/22/21 22:28 Sodium Chloride 0.9% 25ml Bag IV 08/22/21 21:55 2
--- NOTE | 2021-08-22 20:01 | CT_ITS ---
PROCEDURE INFORMATION: Exam: CTA Chest With Contrast Exam date and time: 08/22/2021 8:01 PM Age: 51 years old Clinical indication: Shortness of breath; Additional info: SOA. COVID-19 positive. TECHNIQUE: Imaging protocol: Computed tomographic angiography of the chest with contrast. 3D rendering (Not supervised by radiologist): MIP and/or 3D reconstructed images were created by the technologist. Radiation optimization: All CT scans at this facility use at least one of these dose optimization techniques: automated exposure control; mA and/or kV adjustment per patient size (includes targeted exams where dose is matched to clinical indication); or iterative reconstruction. Contrast material: ISOVUE 370; Contrast volume: 70 ml; Contrast route: INTRAVENOUS (IV); COMPARISON: [facility] CTA-CHEST 10/07/2015 7:39 PM FINDINGS: Pulmonary arteries: No acute pulmonary emboli. Aorta: No thoracic aortic aneurysm. Lungs: Dense bands of platelike atelectasis in the right middle lobe and left lower lobe, milder in the left lingula and right lung base. There are some hazy , ill-defined scattered ground-glass opacities in both lungs which appear greatest in the lower lungs, and some of these have a vague rounded contour. Calcified pulmonary granulomas. Likely chronic posterior left basilar pulmonary-pleural scarring. Pleural spaces: Some areas of peripheral pleural thickening and calcification, no pleural effusion or pneumothorax. Heart: The heart is not enlarged. Trace pericardial effusion. RV/LV ratio less than 1, approximate 0.9, within normal limits. No significant reflux of contrast into the IVC or hepatic veins to suggest right heart strain. Lymph nodes: Mild bilateral mediastinal and hilar lymphadenopathy, increased number and size of visible nodes. There are also small calcified left hilar nodes. No significant axillary adenopathy. Liver: Mild fatty change in the liver. Gallbladder and bile ducts: Cholecystectomy clips. Bones/joints: There are spinal degenerative changes, with multilevel disc narrrowing and spondylosis. Spinal stimulator wire noted in the central spinal canal. No acute fracture or significant listhesis, as visualized. Lower cervical anterior fusion hardware, incompletely imaged on this exam. Soft tissues: There are no soft tissue masses or fluid collections. IMPRESSION: 1. No acute pulmonary emboli. 2. Some commonly reported imaging features of COVID-19 pneumonia are present. There are also dense bands of platelike atelectasis in the mid and lower lungs, chronic granulomatous changes, and areas of peripheral pulmonary-pleural scarring. 3. Mild bilateral mediastinal and hilar lymphadenopathy. 4. Additional nonemergency and chronic findings as above.
[2021-08-22 20:07] LABS: Troponin I < 0.01 ng/ml (0.00-0.034)
[2021-08-22 20:29] LABS: Influenza A, PCR Not Detected (NotDetected); Influenza B, PCR Not Detected (NotDetected)
[2021-08-22 22:05] VITALS: BP 153/89; PULSE 86; RESP 14; O2SAT 95
[2021-08-22 22:19] LABS: Coronavirus 19, PCR Detected (NotDetected)
[2021-08-22 22:44] VITALS: BP 158/84; PULSE 93; RESP 18; TEMP 37.2; O2SAT 94
== END 2021-08-22 23:04 | disposition home or self-care (01) ==
PROVIDERS: Emergency Provider Emergency Medicine; PCP Family Medicine
DX: U07.1 COVID-19 (principal); I10 Essential (primary) hypertension; E03.9 Hypothyroidism, unspecified; I25.2 Old myocardial infarction; E78.5 Hyperlipidemia, unspecified; Z88.0 Allergy status to penicillin; Z79.899 Other long term (current) drug therapy
CPT/HCPCS: 71045; 71275; 80053; 83605; 84484; 85025; 87040; 93005; 96365; 96366; 99284; C9803; Q9967; U0003; U0005

== ENCOUNTER 2021-08-27 10:11 | Outpatient (CLI) | payer OTHER, SELFPAY ==
[2021-08-27 10:29] VITALS: BP 149/85; PULSE 77; RESP 18; TEMP 37.1; O2SAT 93
[2021-08-27 10:45] VITALS: BP 146/88; PULSE 77; RESP 18; O2SAT 93
[2021-08-27 11:00] VITALS: BP 150/80; PULSE 72; RESP 18; O2SAT 93
[2021-08-27 11:30] VITALS: BP 150/84; PULSE 62; RESP 20; O2SAT 93
[2021-08-27 12:45] VITALS: BP 154/79; PULSE 79; RESP 16; TEMP 36.8; O2SAT 94
== END 2021-08-27 13:16 | disposition home or self-care (01) ==
LOC: INF 10:12
PROVIDERS: PCP Family Medicine; Visit Provider Family Medicine
DX: U07.1 COVID-19 (principal); Z23 Encounter for immunization
CPT/HCPCS: 96365

== ENCOUNTER 2021-08-29 10:44 | Day surgery (SDC) | payer OTHER, SELFPAY ==
[2021-08-29 10:55] VITALS: BP 154/90; PULSE 67; RESP 20; TEMP 36.6; O2SAT 94; BMI 35.7
[2021-08-29 11:14] VITALS: BP 156/86; PULSE 74; RESP 18; O2SAT 96
[2021-08-29 11:22] VITALS: BP 156/86; PULSE 67; RESP 18; O2SAT 96
--- NOTE | 2021-08-29 11:29 | HMH.PMPROC ---
- Procedure Date: 08/29/21 Time: 11:29 Anesthesiologist:: Robert Boyce MD Complications:: None Pre-procedure Diagnosis:: Degenerative disc disease of lumbar spine with lumbar radiculopathy symptoms Post-procedure Diagnosis:: Same Indications for Procedure:: This patient is a pleasant 50-year-old white female who we are treating for low back pain with lumbar radiculopathy symptoms. She does have an intrathecal Dilaudid/bupivacaine pain pump in place going at 3.125 mg/day. She is doing well with her pump. She has no side effects. We will refill her pump today. George and drug screen are all appropriate George [phone]. She does have an antalgic gait. Motor strength of lower extremities is 5/5. There is no gross sensory deficit. Procedure Details:: Informed consent was obtained and the risks and benefits of the procedure was explained to the patient. The patient was taken to the procedure room. The pump was interrogated. The area over the pump was prepped using ChloraPrep. The pump was accessed with a 22-gauge needle. Approximately 3 mL's of the intrathecal solution was withdrawn and discarded. The pump was then refilled with 20 mL's of intrathecal Dilaudid 10 mg/mL bupivacaine 5 mg/mL. The pump was interrogated and the infusion was continued at 3.125 mg/day. The patient tolerated the procedure well with no complication. Plan and Disposition:: We will follow-up with her at her next pump refill. Denies any problems questions she is call us back in the pain clinic.
[2021-08-29 12:36] VITALS: BP 153/94; PULSE 67; RESP 18; TEMP 36.7; O2SAT 98
== END 2021-08-29 11:30 | disposition home or self-care (01) ==
LOC: SC.PAINP 10:45
PROVIDERS: PCP Family Medicine; Visit Provider Anesthesiology
DX: M51.16 Intervertebral disc disorders with radiculopathy, lumbar region (principal); Z45.1 Encounter for adjustment and management of infusion pump; I25.2 Old myocardial infarction; E78.5 Hyperlipidemia, unspecified; I10 Essential (primary) hypertension; M19.90 Unspecified osteoarthritis, unspecified site; E03.9 Hypothyroidism, unspecified; I25.10 Atherosclerotic heart disease of native coronary artery without angina pectoris; J45.909 Unspecified asthma, uncomplicated; K21.9 Gastro-esophageal reflux disease without esophagitis; F32.9 Major depressive disorder, single episode, unspecified; F41.9 Anxiety disorder, unspecified
CPT/HCPCS: 95991

== ENCOUNTER 2021-09-02 11:59 | Emergency (ER) | payer OTHER, SELFPAY ==
[2021-09-02 13:39] VITALS: BP 130/76; PULSE 70; RESP 19; TEMP 36.8; O2SAT 98; BMI 35.7
--- NOTE | 2021-09-02 13:53 | HMH.EDUTC ---
[facility] [place] Clinical Impression: Oral yeast infection Disposition: Home, Self-Care Condition on Discharge: Good Instructions: Raynaud Phenomenon (Alternative Therapy), Rosacea (Alternative Therapy), Rosacea, Raynaud Disease and Phenomenon, Nystatin, DI for Rosacea Additional Instructions: *Monitor Temp, Over the counter Motrin or Tylenol as directed/as needed Tylenol every 4 hours and Motrin every 6 hours (as long as your family doctor has told you that you can take it) for fever or pain. and straight to ER if unable to lower temp less than 101.0 after medication given *Warm salt water gargles may help to soothe the throat *Throat Lozenges *Warm fluids like tea with honey may help to soothe the throat *Sleep elevated *Humidifier/Vaporizer Take medication and use as directed Return if needed Follow up with your Family Doctor for further laboratory testing and treatment of raynaulds and rosacea Your throat swab was sent for culture. Those results are typically sent to your primary care. Be sure to follow up in 2-3 days with your family doctor/primary care physician if no improvement so they can review those result and treat if necessary. If you don?t have a primary care doctor, I recommend you get one but in the mean time, you will have to return to a walk in clinic Follow up IMMEDIATELY for new or worsening symptoms or no Noticeable improvement over the next 48-72 hours. 911 for difficulty breathing or swallowing Prescriptions: Nystatin [Nystatin Susp 500,000 Units/5mL Udc] 4 ml PO QID 10 Days #160 ml Transmission Status: Received by [facility] Referrals: Provider,MD Iliana [Primary Care Provider] - Nevaeh Hdez MD [Referring] - Medical Decision Making - George Inquiry Pt receiving controlled substance: No George was queried for this patient: No Vital Signs: 09/02/21 13:39 Temperature 98.3 F Temperature Source Oral Pulse Rate [Left Radial] 70 Respiratory Rate 19 Blood Pressure [Left Arm] 130/76 Blood Pressure Mean [Left Arm] 94 Blood Pressure Source [Left Arm] Automatic Cuff Blood Pressure Position [Left Arm] Sitting 02 Sat by Pulse Oximetry 98 Oxygen Delivery Method Room Air - Lab Data Lab results reviewed: Yes: I reviewed the patient's lab results. [facility] [place]PI - General Stated complaint: loss of feeling in fingers Time Seen by Provider: 09/02/21 13:53 Mode of Arrival: Ambulatory Source of Information: Patient Limitations: No Limitations Description of Symptoms (Recalled from Triage Doc. by RN): C/O face, hand and neck redness x2 weeks. C/O tingling in fingers HEENT Symptoms (Recalled from RN notes): No Resp Symptoms (Recalled from RN notes): No Skin Symptoms (Recalled from RN notes): Yes (skin redness) MS Symptoms (Recalled from RN notes): No Functional Status (Recalled from RN notes): n/a - History of Present Illness Provider Complaint: Patient states that she has been having sore scratchy throat and noticed that she has a white film on her tongue worried that she may have yeast infection in her mouth States that she also has raynaulds disease and her hands have been red and dry and prickly wasnt sure if there was something she could do for them - Related Data Home Medications Medication Instructions Recorded Confirmed levothyroxine 137 mcg tablet 137 mcg PO DAILY tab 04/12/18 08/29/21 fenofibrate 160 mg tablet 160 mg PO DAILY #30 tab 06/22/19 08/29/21 dexlansoprazole 60 mg 60 mg PO DAILYP PRN cap 01/23/21 08/29/21 capsule,biphase delayed release methocarbamol 500 mg tablet 500 mg PO QIDP PRN tab 01/23/21 08/29/21 Budesonide/Formoterol Fumarate 2 puffs IH BID 01/30/21 08/29/21 [Budesonide-Formoterol 80-4.5] Bupivacaine HCl/Pf [Bupivacaine 1.3 mg IT CONT 02/24/21 08/29/21 0.25% 10mL Inj] Hydromorphone HCl/Pf [Dilaudid 2.6 mg IT CONT 02/24/21 08/29/21 1mg/ml inj] lubiprostone 24 mcg capsule 24 mcg PO DAILY PRN 03/24/21 08/29/21 zolpidem 10 mg tablet 10 mg PO
[2021-09-02 14:58] VITALS: BP 130/76; PULSE 70; RESP 19; TEMP 36.8; O2SAT 98
[2021-09-02 21:05] LABS: UTC Strep Screen (Rapid) Negative (Negative)
== END 2021-09-02 14:58 | disposition home or self-care (01) ==
PROVIDERS: Emergency Provider Nurse Practitioner
DX: B37.0 Candidal stomatitis (principal); I73.00 Raynaud's syndrome without gangrene
CPT/HCPCS: 87880; 99202; G0463

== ENCOUNTER 2021-09-29 14:29 | Emergency (ER) | payer OTHER, SELFPAY ==
[2021-09-29 14:30] VITALS: BP 120/77; PULSE 79; RESP 16; TEMP 36.6; O2SAT 98; BMI 35.7
[2021-09-29 14:37] VITALS: BP 120/77; PULSE 78; O2SAT 95
--- NOTE | 2021-09-29 14:56 | HMH.EDGENADL ---
ED Disposition Clinical Impression: Leg pain Qualifiers: Laterality: right Qualified Code(s): M79.604 - Pain in right leg Disposition: Home, Self-Care Condition on Discharge: Good Referrals: Gayla Galan MD [Primary Care Provider] - - Critical Care Critical Care Time: No Attestation: On 09/29/21, the high probability of a clinically significant, sudden or life threatening deterioration of the following system(s) required my full and direct attention, intervention and personal management. The time I documented below is in addition to time spent performing reported procedures but includes the following listed in this critical care notation. Medical Decision Making - Medical Records Medical records reviewed: Yes: I reviewed the patient's medical records. - George Inquiry Pt receiving controlled substance: No Vital Signs: 09/29/21 14:30 09/29/21 14:37 Temperature 97.9 F Temperature Source Oral Pulse Rate 78 Pulse Rate [Radial] 79 Respiratory Rate 16 Blood Pressure 120/77 Blood Pressure [Right Arm] 120/77 Blood Pressure Mean 95 Blood Pressure Mean [Right Arm] 91 Blood Pressure Position [Right Arm] Sitting 02 Sat by Pulse Oximetry 98 95 Oxygen Delivery Method Room Air - Lab Data Lab Results 09/29/21 14:49: WBC 6.6, RBC 4.42, Hgb 12.7, Hct 41.4, MCV 93.7, MCH 28.8, MCHC 30.7 L, RDW 14.7, Plt Count 238, MPV 9.5, Neut % (Auto) 49.6, Lymph % (Auto) 40.8, [place] % (Auto) 6.3, Eos % (Auto) 2.0, Baso % (Auto) 1.3, Neut # (Auto) 3.3, Lymph # (Auto) 2.7, [place] # (Auto) 0.4, Eos # (Auto) 0.1, Baso # (Auto) 0.1 09/29/21 14:49: PT 11.0, INR 0.97 09/29/21 14:49: D-Dimer 0.84 H 09/29/21 14:49: Sodium 141, Potassium 3.5, Chloride 103, Carbon Dioxide 31 H, Anion Gap 10.5, BUN 18 H, Creatinine 0.70, Estimated Creat Clear 143, Estimated GFR 88, Est GFR ( Amer) 106, Glucose 84, Calcium 9.5, Total Bilirubin 0.2, AST 44 H, ALT 22, Alkaline Phosphatase 43, Total Protein 7.1, Albumin 4.3, Globulin 2.8, Albumin/Globulin Ratio 1.5 Result diagrams: 09/29/21 14:49 09/29/21 14:49 Medical Decision Narrative: This 51-year-old female presents emergency department with chief complaint of right lower extremity pain and erythema. Area of erythema is on the medial aspect of the patient's left lower extremity, and she has trace edema of her lower extremity as well. Differential diagnosis in this patient includes DVT, patient, arthropod bite, dermatitis, among others. Given this we will assess patient labs, D-dimer, obtain ultrasound of the right lower extremity. Patient also complaining of nausea which she states is frequent she will be given Phenergan for symptomatic management. Patient is able to sleep comfortably without any difficulty while here in the emergency department. DVT ultrasound showed no signs of blood clot. Findings discussed with the patient and then she was discharged with follow-up. General Adult HPI - General Chief complaint: PAIN Stated complaint: possible blood clot right leg dizzy Time Seen by Provider: 09/29/21 14:45 Mode of Arrival: Ambulatory Limitations: No Limitations Description of Symptoms (Recalled from ER Triage Doc. by RN): to ed per pvt car with c/o redness, pain, swelling rt ankle up leg x 2 days c/o nausea. denies fever, chills, vomiting. pt states the pain is so bad I can hardly walk. - History of Present Illness HPI narrative: Patient is a 51-year-old male female who is presenting to the emergency department chief complaint of right lower extremity redness and swelling. Patient states that she first noted an area of erythema on her right leg and it is since increased. She states that she has had a little bit of swelling in the right lower extremity since then as well as increasing pain. States that she is been nauseous off and on for the past while, and she felt nervous and stuttering her chest however she is denying chest pain and acute shortness of air. Denies any trauma to h
--- NOTE | 2021-09-29 15:01 | CA_ITS ---
APPROVED REPORT Right Lower Extremity Venous Study for DVT. Global Mobility Specialist: CT Indications Lower Extremity Pain: Right Lower Extremity Edema: Right RED SPOT ABOVE THE ANKLE Vein Imaging CFV (R): compressive, spontaneous, phasic, augmentation SFJ (R): compressive, spontaneous, phasic, augmentation FEM (R): compressive, spontaneous, phasic, augmentation POP (R): compressive, spontaneous, phasic, augmentation DFV (R): compressive, spontaneous, phasic, augmentation PTV (R): compressive, spontaneous, phasic, augmentation GSV (R): compressive, spontaneous, phasic, augmentation Peroneals (R):compressive, spontaneous, phasic, augmentation GAS (R): compressive, spontaneous, phasic, augmentation Findings RLE Venous negative for DVT/SVT. Vessels compressible. Conclusion RLE Venous negative for DVT/SVT. Vessels compressible. Electronically signed by : Antwan Akhtar MD 09/29/2021 17:39:42
[2021-09-29 15:09] LABS: Basophils # 0.1 K/mm3 (0-0.2); Basophils % 1.3 % (0.1-2.0); Eosinophils # 0.1 K/mm3 (0.0-0.4); Hematocrit 41.4 % (37.0-47.0); Hemoglobin 12.7 g/dL (12.2-16.2); Lymphocytes # 2.7 K/mm3 (0.7-4.5); Lymphocytes % 40.8 % (10-50); Mean Corpuscular HGB Conc 30.7 g/dL (31.8-35.4); Mean Corpuscular Hemoglobin 28.8 pg (27.0-31.2); Mean Corpuscular Volume 93.7 fl (81-99); Mean Platelet Volume 9.5 fl (7.4-10.4); Monocytes # 0.4 K/mm3 (0.1-1.0); Monocytes % 6.3 % (1.7-9.3); Neutrophils # 3.3 K/mm3 (1.8-7.8); Neutrophils % 49.6 % (37.0-80.0); Platelet Count 238 K/mm3 (142-424); Red Blood Count 4.42 M/mm3 (4.20-5.40); Red Cell Distribution Width 14.7 % (11.5-17.5); White Blood Count 6.6 K/mm3 (4.8-10.8)
[2021-09-29 15:10] LABS: Alanine Aminotransferase 22 U/L (12-78); Albumin Level 4.3 g/dl (3.5-5.0); Albumin/Globulin Ratio 1.5 (1.1-1.8); Alkaline Phosphatase 43 U/L (38-126); Anion Gap 10.5 mEq/L (5-15); Aspartate Amino Transferase 44 U/L (14-36); Bilirubin,Total 0.2 mg/dl (0.2-1.3); Blood Urea Nitrogen 18 mg/dl (7-17); Calcium 9.5 mg/dl (8.4-10.2); Carbon Dioxide 31 mmol/L (22.0-30.0); Chloride 103 mmol/L (98-107); Creatinine Clearance Estimated 143 mL/min (50-200); Estimated Glomerular Filt Rate 88 ml/min (>60); GFR (African American) 106 ML/MIN (>60); Globulin 2.8 g/dL (1.3-3.2); Glucose 84 mg/dl (74-100); Potassium 3.5 mmoL/L (3.5-5.1); Sodium 141 mmol/L (136-145); Total Protein,Serum 7.1 g/dl (6.3-8.2)
[2021-09-29 15:16] LABS: D-Dimer 0.84 ug/mL (0.0-0.5)
[2021-09-29 15:26] LABS: INR 0.97 (0.9-1.1)
--- NOTE | 2021-09-29 15:26 | PC.NURSE ---
CV lab at bedside
[2021-09-29 17:44] VITALS: BP 139/65; PULSE 78; RESP 16; TEMP 36.6; O2SAT 98
== END 2021-09-29 17:45 | disposition home or self-care (01) ==
PROVIDERS: Emergency Provider Emergency Medicine; PCP Family Medicine
DX: M79.604 Pain in right leg (principal); R42 Dizziness and giddiness; I25.10 Atherosclerotic heart disease of native coronary artery without angina pectoris; E78.5 Hyperlipidemia, unspecified; I10 Essential (primary) hypertension; I25.2 Old myocardial infarction; E03.9 Hypothyroidism, unspecified; Z79.899 Other long term (current) drug therapy
CPT/HCPCS: 80053; 85025; 85378; 85610; 93971; 99282

== ENCOUNTER → 2021-10-06 15:31 | Outpatient (CLI) | payer OTHER, SELFPAY ==
--- NOTE | 2021-10-06 15:32 | CA_ITS ---
APPROVED REPORT Bilateral Lower Extremity Venous Study for DVT. Mathematics Instructor: JOAO Indications Lower Extremity Pain: Right Pain and swelling right lower extremity, Spinal bifida Vein Imaging CFV (R): compressive, spontaneous, phasic, augmentation SFJ (R): compressive, spontaneous, phasic, augmentation FEM (R): compressive, spontaneous, phasic, augmentation POP (R): compressive, spontaneous, phasic, augmentation DFV (R): compressive, spontaneous, phasic, augmentation PTV (R): compressive, spontaneous, phasic, augmentation GSV (R): compressive, spontaneous, phasic, augmentation SSV (R): compressive, spontaneous, phasic, augmentation Peroneals (R):compressive, spontaneous, phasic, augmentation GAS (R): compressive, spontaneous, phasic, augmentation Findings Color flow duplex demonstrates no evidence of DVT of the following right lower extremity Veins:Common Femoral Vein, Femoral Vein, Popliteal Vein, Posterior Tibial Veins, Peroneal Veins, Deep Femoral Vein. Negative for DVT. Conclusion Negative for DVT. Electronically signed by : Antwan Akhtar MD 10/08/2021 19:45:18
== END ==
PROVIDERS: PCP Family Medicine; Visit Provider Nurse Practitioner
DX: M79.604 Pain in right leg (principal)
CPT/HCPCS: 93971

== ENCOUNTER → 2021-10-09 15:07 | Day surgery (SDC) | payer OTHER, SELFPAY ==
[2021-10-09 15:47] VITALS: BP 164/92; PULSE 72; RESP 18; O2SAT 97
--- NOTE | 2021-10-09 16:05 | P.PCN_ITS ---
- Procedure Date: 10/09/21 Time: 16:08 Anesthesiologist:: Afia Alejandro APRN Complications:: None Pre-procedure Diagnosis:: Degenerative disc disease lumbar spine with lumbar radiculopathy symptoms, degenerative disc disease cervical spine cervical radiculopathy symptoms Post-procedure Diagnosis:: Same Indications for Procedure:: Patient is a very pleasant 51-year-old white female who presents today for intrathecal pain pump refill and reprogram. She is doing well overall with her intrathecal therapy. Patient is having pain with her head today due to striking the right side of her head today. She feels nauseous and is having some residual visual changes due to the pain as well. Patient says this is happened to her on numerous occasions and she does not want to go to the emergency room. Patient is currently on Dilaudid at 3.75 mg/day and bupivacaine 1.875 mg/day. She is having to return within a month to month and a half for refills. We discussed increasing concentration next visit. She would like to do this. Physical exam General: Alert and oriented x3, no acute distress, pleasant and cooperative Lungs: Respirations even and unlabored, symmetrical chest expansion Eyes: PERRL Musculoskeletal: Flexion and extension of lumbar and cervical [spine] somewhat guarded secondary to pain, [antalgic gait noted] Neurological: Speech clear, no gross sensory deficit Procedure Details:: Informed consent was obtained and the risk and benefits of the procedure were explained to the patient. The patient was taken to the procedure room where noninvasive monitoring was placed including noninvasive blood pressure cuff and pulse oximeter. Patient's pump was interrogated. The area over the pump was cleansed with chlorhexidine as a cleansing solution. In sterile fashion the pump was accessed with a 22-gauge needle. Approximately 3 mls of the pump solution was removed and discarded appropriately. The pump was then refilled w ith 20 mL's of Dilaudid 10 mg per mill and bupivacaine 5 mg per male. The needle was withdrawn and a bandage was placed over the puncture site. The infusion rate was reprogrammed at continued at Dilaudid 3.75 mg/day and bupivacaine at 1.875 mg/day the patient tolerated well with no complication. Plan and Disposition:: We will plan to increase the patient's concentration medication at next visit. We will increase the patient's Dilaudid to 20 mg per mill bupivacaine to 8 mg per mill. We will see her back at her next refill. We will see the patient back in the clinic at the next intrathecal refill. Patient has been instructed to contact the clinic with any concerns before the next appointment. Dr. Boyce has reviewed this note and agrees with this plan of care. This note was dictated using voice recognition software and make contain errors or omissions.
== END ==
PROVIDERS: PCP Family Medicine; Visit Provider Clinical Nurse Specialist Family Health
DX: M51.16 Intervertebral disc disorders with radiculopathy, lumbar region (principal); M50.10 Cervical disc disorder with radiculopathy, unspecified cervical region; Z45.1 Encounter for adjustment and management of infusion pump
CPT/HCPCS: 62370

== ENCOUNTER 2021-11-17 14:03 | Day surgery (SDC) | payer OTHER, SELFPAY ==
[2021-11-17 14:07] VITALS: BP 148/103; PULSE 87; RESP 20; TEMP 36.8; O2SAT 96; BMI 39.1
[2021-11-17 14:13] VITALS: BP 152/90; PULSE 88; RESP 18; O2SAT 97
[2021-11-17 14:18] VITALS: PULSE 88; RESP 18; O2SAT 97
--- NOTE | 2021-11-17 14:21 | HMH.PMPROC ---
- Procedure Date: 11/17/21 Time: 14:21 Anesthesiologist:: Martha Mullins MD Complications:: None Pre-procedure Diagnosis:: Degenerative disc disease of the cervical and lumbar spine with cervical and lumbar radiculopathy symptoms. Post-procedure Diagnosis:: Same Indications for Procedure:: Patient is a pleasant 51-year-old female who presents today for intrathecal pain pump refill and reprogram. The patient is being treated for degenerative disc disease of the cervical and lumbar spine with cervical and lumbar radiculopathy symptoms. Patient is being treated with Dilaudid 10 mg/mL at a rate of 3.75 mg/day and bupivacaine 5 mg/mL. Patient denies any side effect of this medication. Patient denies any change in location and time of pain. We are changing the Dilaudid and bupivacaine concentration to Dilaudid 20 mg/mL and bupivacaine 8 mg/mL today due to increase time in between pain pump refills. Patient rates pain a 7 out of 10. Drug screen is appropriate. George [id number] has been reviewed and is appropriate. Physical exam General: Alert and oriented x3, no acute distress, pleasant and cooperative, [on room air] Lungs: Respirations even and unlabored, symmetrical chest expansion Eyes: PERRL Musculoskeletal: Flexion and extension of cervical and lumbar [spine] somewhat guarded secondary to pain, [antalgic gait noted] Neurological: Speech clear, no gross sensory deficit Procedure Details:: Informed consent was obtained and the risk and benefits of the procedure were explained to the patient. The patient was taken to the procedure room where noninvasive monitoring was placed including noninvasive blood pressure cuff and pulse oximeter. Patient's pump was interrogated. The area over the pump was cleansed with chlorhexidine as a cleansing solution. In sterile fashion the pump was accessed with a 22-gauge needle. Pump was accessed using fluoroscopy. Approximately 5 mls of the pump solution was removed and discarded appropriately. The pump was then refilled with 20 mL's of Dilaudid 20 mg/mL and bupivacaine 8 mg/mL. The needle was withdrawn and a bandage was placed over the puncture site. The infusion rate was reprogrammed and continued at Dilaudid 3.75 mg/day. The patient tolerated well with no complication. Plan and Disposition:: We will see the patient back in the clinic at the next intrathecal refill. Patient has been instructed to contact the clinic with any concerns before the next appointment. This note was dictated using voice recognition software and make contain errors or omissions.
[2021-11-17 14:34] VITALS: BP 132/81; PULSE 79; RESP 20; O2SAT 94
[2021-11-17 15:38] LABS: Alanine Aminotransferase 25 U/L (12-78); Albumin Level 4.5 g/dl (3.5-5.0); Albumin/Globulin Ratio 1.7 (1.1-1.8); Alkaline Phosphatase 46 U/L (38-126); Anion Gap 10.6 mEq/L (5-15); Aspartate Amino Transferase 40 U/L (14-36); Bilirubin,Total 0.5 mg/dl (0.2-1.3); Blood Urea Nitrogen 19 mg/dl (7-17); Calcium 9.8 mg/dl (8.4-10.2); Carbon Dioxide 31 mmol/L (22.0-30.0); Chloride 100 mmol/L (98-107); Chol/HDL Ratio 2.5 (1-3.5); Cholesterol 194 mg/dl (140-200); Creatinine Clearance Estimated 137 mL/min (50-200); Estimated Glomerular Filt Rate 75 ml/min (>60); GFR (African American) 91 ML/MIN (>60); Globulin 2.6 g/dL (1.3-3.2); Glucose 77 mg/dl (74-100); HDL Cholesterol 78 mg/dl (40-60); Potassium 3.6 mmoL/L (3.5-5.1); Sodium 138 mmol/L (136-145); Total Protein,Serum 7.1 g/dl (6.3-8.2); Triglycerides 132 mg/dl (30-150); VLDL Cholesterol 26 mg/dL (0-40)
[2021-11-17 15:54] LABS: 25-OH Vitamin D, Total 54.6 ng/mL (30-100)
== END 2021-11-17 14:35 | disposition home or self-care (01) ==
LOC: SC.PAINP 14:04
PROVIDERS: PCP Family Medicine; Visit Provider Family Medicine
DX: M50.10 Cervical disc disorder with radiculopathy, unspecified cervical region (principal); I25.2 Old myocardial infarction; I25.10 Atherosclerotic heart disease of native coronary artery without angina pectoris; E78.5 Hyperlipidemia, unspecified; I10 Essential (primary) hypertension; E03.9 Hypothyroidism, unspecified; K21.9 Gastro-esophageal reflux disease without esophagitis; M19.90 Unspecified osteoarthritis, unspecified site; Z88.0 Allergy status to penicillin; Z88.1 Allergy status to other antibiotic agents; Z88.2 Allergy status to sulfonamides; Z88.8 Allergy status to other drugs, medicaments and biological substances
CPT/HCPCS: 36415; 80053; 80061; 82306; 95991

== ENCOUNTER → 2021-12-22 12:48 | Outpatient (CLI) | payer OTHER, SELFPAY ==
--- NOTE | 2021-12-22 12:48 | MR_ITS ---
FINAL REPORT CLINICAL HISTORY: ankle pain. medial sided ankle pain and swelling x8-9months. no injury or trauma. limited study due to patient being in pain. exam was suppose to be done with but patient could not make it through all of without. COMPARISON: August 28, 2020 FINDINGS: Multiplanar MR imaging of the left ankle was performed without contrast. Exam is limited due to patient condition. There are mild degenerative changes of the midfoot. No fracture is identified. There is stable thinning of the anterior talofibular ligament that may represent sequela of prior partial tear. There is posterior tibial tendinosis and tenosynovitis. The intrasubstance tear seen on the prior exam is not definitely identified. There has been interval improvement in the medial edema/soft tissue inflammation. The Achilles tendon is intact. The posterior plantar aponeurosis is unremarkable. IMPRESSION: Stable thinning of the anterior talofibular ligament that may represent sequela of prior partial tear. Interval improvement in medial edema/soft tissue inflammation. Tendinosis and tenosynovitis of the posterior tibial tendon. Previous intrasubstance tear not identified. Reviewed, Interpreted and Dictated by Eddie Frost III, MD Transcribed by Ganesh Hernandez Authenticated by Eddie Frost III, MD on 12/22/2021 04:33:20 PM [facility]
== END ==
PROVIDERS: PCP Family Medicine; Visit Provider Podiatrist
DX: M76.822 Posterior tibial tendinitis, left leg (principal)
CPT/HCPCS: 73721

== ENCOUNTER 2021-12-24 15:41 | Emergency (ER) | payer OTHER, SELFPAY ==
[2021-12-24 16:13] VITALS: BP 120/62; PULSE 74; RESP 18; TEMP 36.6; O2SAT 95; BMI 39.9
--- NOTE | 2021-12-24 16:34 | HMH.EDUTC ---
[facility] [place] Disposition Clinical Impression: Muscle spasm of back Low back pain Qualifiers: Chronicity: unspecified Back pain laterality: bilateral Sciatica presence: with sciatica Sciatica laterality: bilateral sciatica Qualified Code(s): M54.42 - Lumbago with sciatica, left side Thoracic back pain Qualifiers: Chronicity: unspecified Back pain laterality: bilateral Qualified Code(s): M54.6 - Pain in thoracic spine Disposition: Home, Self-Care Condition on Discharge: Good Additional Instructions: Go home and rest. It would be best if you rested tomorrow too. No heavy lifting. No twisting. Take the oral medications as directed. The muscle relaxer (cyclobenzaprine--Flexeril) will make you drowsy, so don't drive or operate heavy machinery after taking it. Make sure you don't take the flexeril if you take your regular muscle relaxer (tizanidine). 2 muscle relaxers would make you too drowsy and would be dangerous together. Don't start the oral steroids (medrol dose pack) until tomorrow, since you had the shots in here today. Follow up with your regular doctor. GO TO THE ER FOR ANY WORSENING SYMPTOMS OR CONCERN, ESPECIALLY BOWEL OR BLADDER ISSUES, SADDLE AREA NUMBNESS, FEVER, ETC Prescriptions: Cyclobenzaprine HCl [Cyclobenzaprine 10mg Tab] 10 mg PO BIDP PRN #30 tab PRN Reason: Muscle Spasm Transmission Status: Received by [facility] methylPREDNISolone [Medrol] 4 mg PO DIRECTED 6 Days #21 packet Transmission Status: Received by [facility] Referrals: Gayla Galan MD [Primary Care Provider] - Time of Disposition: 17:14 Medical Decision Making - Medical Records Medical records reviewed: No: I reviewed the patient's medical records. - George Inquiry Pt receiving controlled substance: No Vital Signs: 12/24/21 16:13 Temperature 97.8 F Temperature Source Oral Pulse Rate [Left] 74 Respiratory Rate 18 Blood Pressure [Right Arm] 120/62 Blood Pressure Mean [Right Arm] 81 02 Sat by Pulse Oximetry 95 Orders (Tests/Meds): ED MEDICATIONS Discontinued Medications Generic Name Dose Route Start Last Admin Trade Name Freq PRN Reason Stop Dose Admin Ketorolac Tromethamine 60 mg 12/24/21 16:49 12/24/21 16:59 Ketorolac 60mg/2ml Vial IM 12/24/21 16:50 60 mg ONCE ONE Administration Methylprednisolone Sodium Succinate 125 mg 12/24/21 16:49 12/24/21 16:59 Methylprednisolone Sod Succ 125mg Vial IM 12/24/21 16:50 125 mg ONCE ONE Administration [facility] [place] HPI - General Stated complaint: pulled muscle, upper back Time Seen by Provider: 12/24/21 16:34 Mode of Arrival: Ambulatory Source of Information: Patient Limitations: No Limitations Description of Symptoms (Recalled from Triage Doc. by RN): pt c/o muscle spasms in the entirety of her back. 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 pt states she was getting off the CT table and believes she pulled a muscle. HEENT Symptoms (Recalled from RN notes): No Resp Symptoms (Recalled from RN notes): No Skin Symptoms (Recalled from RN notes): No MS Symptoms (Recalled from RN notes): Yes Functional Status (Recalled from RN notes): wnl - History of Present Illness Provider Complaint: She states that for the past 3 days she has been having upper, middle and lower back pain. She had to have a ct scan on her foot for podiatry before these symptoms began. She states that having to lie flat on the ct table caused her back to start spasming. Then, when the test was over and she tried to get up off the table, she had to pull herself with her arms and she thinks that she pulled several muscles in her back. She has a long history of back issues. She has had symptoms like this before and she had to get a steroid shot and toradol shot to calm it down. She denies any recent fall, mva or other injury. - Related Data Home Medications Medication Instructions Recorded Confirmed lev
[2021-12-24 17:36] VITALS: BP 120/62; PULSE 74; RESP 18; TEMP 36.6
== END 2021-12-24 17:37 | disposition home or self-care (01) ==
PROVIDERS: Emergency Provider Nurse Practitioner Family; PCP Family Medicine
DX: M54.9 Dorsalgia, unspecified (principal); M54.6 Pain in thoracic spine; I25.119 Atherosclerotic heart disease of native coronary artery with unspecified angina pectoris; E78.5 Hyperlipidemia, unspecified; I10 Essential (primary) hypertension; I25.2 Old myocardial infarction; M19.90 Unspecified osteoarthritis, unspecified site; E03.9 Hypothyroidism, unspecified
CPT/HCPCS: 96372; 99202; G0463

== ENCOUNTER 2022-01-09 12:38 | Outpatient (RCR) | payer OTHER, SELFPAY | END 2022-01-09 13:47 | disposition home or self-care (01) | LOC: PT 12:38 | PROVIDERS: Visit Provider Orthopaedic Surgery | DX: M25.572 Pain in left ankle and joints of left foot (principal); M25.571 Pain in right ankle and joints of right foot; M76.822 Posterior tibial tendinitis, left leg; M76.62 Achilles tendinitis, left leg | CPT/HCPCS: 97760 ==

== ENCOUNTER → 2022-01-09 13:17 | Outpatient (CLI) | payer OTHER, SELFPAY ==
--- NOTE | 2022-01-09 13:17 | MM_ITS ---
PROCEDURE INFORMATION: Exam: MG Bilateral Screening 3D Mammography Exam date and time: 01/09/2022 1:17 PM Age: 51 years old Clinical indication: Encounter for screening mammogram for malignant neoplasm of breast TECHNIQUE: Imaging protocol: Bilateral Screening tomosynthesis and 2D mammography including computer-aided detection (CAD) when performed. COMPARISON: 1. MG MM DIG SCREENING MAMM BI W/CAD 05/13/2020 4:04 PM 2. MG DMSB DIG MAMM-SCREEN VALDEMAR W/CAD 08/04/2017 10:05 AM FINDINGS: MAMMOGRAPHY: Breast composition: The breast tissue is composed of scattered areas of fibroglandular density. Mass: None. Architectural distortion: None. Calcifications: No suspicious calcifications. Asymmetric density: None. Skin thickening: None. Axillary adenopathy: None. IMPRESSION: No mammographic evidence of malignancy. Annual screening is recommended unless otherwise clinically indicated. ASSESSMENT: BI-RADS Category 1: Negative
== END ==
PROVIDERS: PCP Family Medicine; Visit Provider Family Medicine
DX: Z12.31 Encounter for screening mammogram for malignant neoplasm of breast (principal); R06.09 Other forms of dyspnea
CPT/HCPCS: 77063; 77067; 94762

== ENCOUNTER 2022-01-21 11:29 | Emergency (ER) | payer OTHER, SELFPAY ==
[2022-01-21 12:36] VITALS: BP 150/82; PULSE 82; RESP 18; TEMP 36.7; O2SAT 95; BMI 39.9
--- NOTE | 2022-01-21 12:55 | HMH.EDUTC ---
[facility] [place] Disposition Clinical Impression: Neck pain Thoracic back pain Qualifiers: Chronicity: acute Back pain laterality: unspecified Qualified Code(s): M54.6 - Pain in thoracic spine Disposition: Home, Self-Care Condition on Discharge: Good Instructions: DI for Neck Pain, DI for Dysuria -- Adult Additional Instructions: Drink plenty of fluids. Take tylenol or ibuprofen for pain or fever. Take the medications as directed. Follow up with your regular doctor. GO TO THE ER FOR ANY WORSENING SYMPTOMS Don't start the oral steroids until tomorrow, since you had the shot here today. Prescriptions: methylPREDNISolone [Medrol] 4 mg PO DIRECTED 6 Days #21 packet Transmission Status: Received by [id number] Referrals: Gayla Galan MD [Primary Care Provider] - Time of Disposition: 13:25 Medical Decision Making - Medical Records Medical records reviewed: No: I reviewed the patient's medical records. - George Inquiry Pt receiving controlled substance: No Vital Signs: 01/21/22 12:36 01/21/22 13:28 Temperature 98.1 F 98.1 F Temperature Source Oral Pulse Rate 82 Pulse Rate [Left] 82 Respiratory Rate 18 18 Blood Pressure 150/82 H Blood Pressure [Right Arm] 150/82 H Blood Pressure Mean [Right Arm] 104 02 Sat by Pulse Oximetry 95 - Lab Data Lab Results 01/21/22 12:53: Urine Color Yellow, Urine Appearance Clear, Urine pH 7.0, Ur Specific [place] 1.015, Urine Protein Negative, Urine Glucose (UA) Negative, Urine Ketones Negative, Urine Blood Negative, Urine Nitrate Negative, Urine Bilirubin Negative, Urine Urobilinogen 0.2, Ur Leukocyte Esterase Negative Orders (Tests/Meds): ED MEDICATIONS Discontinued Medications Generic Name Dose Route Start Last Admin Trade Name Freq PRN Reason Stop Dose Admin Ketorolac Tromethamine 60 mg 01/21/22 13:25 01/21/22 13:27 Ketorolac 60mg/2ml Vial IM 01/21/22 13:26 60 mg ONCE ONE Administration Methylprednisolone Sodium Succinate 125 mg 01/21/22 13:25 01/21/22 13:26 Methylprednisolone Sod Succ 125mg Vial IM 01/21/22 13:26 125 mg ONCE ONE Administration ORDERS Category Date Time Status Urine Culture Stat Micro 01/21/22 12:40 Results [facility] [place] HPI - General Stated complaint: stiff neck, back pain Time Seen by Provider: 01/21/22 12:55 Mode of Arrival: Ambulatory Source of Information: Patient Limitations: No Limitations Description of Symptoms (Recalled from Triage Doc. by RN): pt c/o neck and shoulder pain x3 days. no injury noted. pt also c/o burning with urination x2 days. HEENT Symptoms (Recalled from RN notes): No Resp Symptoms (Recalled from RN notes): No Skin Symptoms (Recalled from RN notes): No MS Symptoms (Recalled from RN notes): Yes Functional Status (Recalled from RN notes): wnl - History of Present Illness Provider Complaint: She states that her neck and upper back pain has flared back up. She was here 1 month ago with similar issues. - Related Data Home Medications Medication Instructions Recorded Confirmed levothyroxine 137 mcg tablet 137 mcg PO DAILY tab 04/12/18 01/09/22 fenofibrate 160 mg tablet 160 mg PO DAILY #30 tab 06/22/19 01/09/22 dexlansoprazole 60 mg 60 mg PO DAILYP PRN cap 01/23/21 01/09/22 capsule,biphase delayed release methocarbamol 500 mg tablet 500 mg PO QIDP PRN tab 01/23/21 01/09/22 Budesonide/Formoterol Fumarate 2 puffs IH BID 01/30/21 01/09/22 [Budesonide-Formoterol 80-4.5] Bupivacaine HCl/Pf [Bupivacaine 1.3 mg IT CONT 02/24/21 01/09/22 0.25% 10mL Inj] Hydromorphone HCl/Pf [Dilaudid 2.6 mg IT CONT 02/24/21 01/09/22 1mg/ml inj] lubiprostone 24 mcg capsule 24 mcg PO DAILY PRN 03/24/21 01/09/22 zolpidem 10 mg tablet 10 mg PO DAILY PRN 03/24/21 01/09/22 Amlodipine Besylate 2.5 mg PO DAILY 05/05/21 01/09/22 Nitroglycerin 0.4 mg SUBLINGUAL Q5M 05/05/21 01/09/22 albuterol sulfate 90 mcg/actuation 90 mcg INHALATION NEEDED PRN 05/08/2112/23
[2022-01-21 13:28] VITALS: BP 150/82; PULSE 82; RESP 18; TEMP 36.7
[2022-01-21 19:01] LABS: Apearance,Urine Clear (Clear); Bilirubin,Urine Negative (Negative); Blood, Urine Negative (Negative); Color,Urine Yellow (Yellow); Glucose,Urine (UA) Negative (Negative); Ketones,Urine Negative (Negative); Protein,Urine Negative (Negative); Specific Gravity, Urine 1.015 (1.005-1.030); Urobilinogen,Urine 0.2 EU/dl (0.2)
[2022-01-21 19:02] LABS: UTC Leukocyte Esterase,Urine Negative (Negative); UTC Nitrate,Urine Negative (Negative)
== END 2022-01-21 13:29 | disposition home or self-care (01) ==
PROVIDERS: Emergency Provider Nurse Practitioner Family; PCP Family Medicine
DX: M54.2 Cervicalgia (principal); M54.6 Pain in thoracic spine; I25.10 Atherosclerotic heart disease of native coronary artery without angina pectoris; I10 Essential (primary) hypertension; E78.5 Hyperlipidemia, unspecified; E03.9 Hypothyroidism, unspecified; Z79.899 Other long term (current) drug therapy
CPT/HCPCS: 81003; 87086; 87088; 87186; 96372; 99212; G0463

== ENCOUNTER 2022-02-02 13:37 | Day surgery (SDC) | payer OTHER, SELFPAY ==
[2022-02-02 13:45] VITALS: BP 137/72; PULSE 78; RESP 20; TEMP 37.2; O2SAT 94; BMI 38.2
[2022-02-02 13:49] VITALS: BP 149/78; PULSE 78; RESP 18; O2SAT 94
[2022-02-02 13:57] VITALS: BP 147/74; PULSE 78; RESP 20; O2SAT 94
--- NOTE | 2022-02-02 14:08 | HMH.PMPROC ---
- Procedure Date: 02/02/22 Time: 14:08 Anesthesiologist:: Otf Sherman CRNA Complications:: None Pre-procedure Diagnosis:: Disc disease cervical and lumbar spine. Cervical and lumbar radiculopathy symptoms. Post-procedure Diagnosis:: Same Indications for Procedure:: Patient is a very pleasant 51-year-old white female presents to the clinic today for pain pump refill. Patient is currently being treated with Dilaudid 20 mg/mL at 3.75 mg/day. Patient states the pain is staying under control with the pain pump. However, she is having some increased pain over the right SI joint. She states this is happened before. I suggested right SI joint injection. She would like to proceed in the near future with SI joint injection on the right side. Patient not having any effects from intrathecal pain pump. Procedure Details:: Details of the procedure were explained to the patient. The patient was taken to the procedure room placed in a prone position on the fluoroscopy table. The area over the intrathecal pain pump was cleansed using chlorhexidine as a cleansing solution. Using a 22-gauge needle the intrathecal pain pump was accessed using fluoroscopy. Medication was withdrawn. This medication was discarded appropriately. The pump was then filled with Dilaudid 20 mg/mL and bupivacaine 8 mg/mL. We will continue with the rate without change. Dilaudid 3.75 mg/day and bupivacaine 1.5 mg/day. Patient tolerated the procedure without difficulty. There were no complications. Plan and Disposition:: Discussed in detail with the patient regarding the right SI joint injection. She wishes to proceed as soon as possible. Also, we will increase gabapentin to 600 mg 3 times daily.
[2022-02-02 14:18] VITALS: BP 115/74; PULSE 78; RESP 20; O2SAT 94
[2022-02-02 16:29] LABS: Amphetamine/Metha Screen,Urine Negative ng/ml (<1000)
[2022-02-02 16:31] LABS: Barbiturates Screen,Urine Negative ng/ml (<200)
[2022-02-02 16:32] LABS: Benzodiazepines Screen,Urine Negative ng/ml (<200); Cannabinoid Screen,Urine Negative ng/ml (<50)
[2022-02-02 16:33] LABS: Cocaine Screen,Urine Negative ng/ml (<300)
[2022-02-02 16:35] LABS: Methadone Screen,Urine Negative ng/ml (<300)
[2022-02-02 16:36] LABS: Opiate Screen,Urine Positive ng/ml (<300); Phencyclidine Screen,Urine Negative ng/ml (<25)
[2022-02-11 13:15] LABS: Codeine Negative (Cutoff=100); Hydrocodone Negative (Cutoff=100); Hydromorphone Positive (.); Morphine Negative (Cutoff=100); Opiates Positive (.)
== END 2022-02-02 14:19 | disposition home or self-care (01) ==
LOC: SC.PAINP 13:38
PROVIDERS: PCP Family Medicine; Visit Provider Nurse Anesthetist, Certified Registered
DX: M50.10 Cervical disc disorder with radiculopathy, unspecified cervical region (principal); M51.16 Intervertebral disc disorders with radiculopathy, lumbar region
CPT/HCPCS: 80305; 80361; 80365; G0480

== ENCOUNTER 2022-02-05 10:09 | Emergency (ER) | payer OTHER, SELFPAY ==
[2022-02-05 11:01] VITALS: BP 120/75; PULSE 74; RESP 18; TEMP 37.2; O2SAT 94; BMI 38.1
--- NOTE | 2022-02-05 11:33 | HMH.EDUTC ---
[facility] [place] Disposition Clinical Impression: Sinusitis Qualifiers: Sinusitis location: unspecified location Chronicity: unspecified Qualified Code(s): J32.9 - Chronic sinusitis, unspecified Disposition: Home, Self-Care Condition on Discharge: Good Instructions: Sinusitis, DI for Sinusitis Additional Instructions: Take medication as prescribed FOllow up with Family Doctor if no improvement or any worsening of symptoms Return if needed Straight to ER if any life threatening symptoms Prescriptions: Doxycycline Monohydrate [Doxycycline Pender 100mg Tab] 100 mg PO BID 7 Days #14 tab Transmission Status: P[facility] to [facility] methylPREDNISolone [Medrol 4mg tab] 4 mg PO DIRECTED #21 tab Transmission Status: Pending to Clinic [facility] Referrals: Provider,Referral, MD [Primary Care Provider] - As needed Time of Disposition: 11:44 Medical Decision Making - George Inquiry Pt receiving controlled substance: No George was queried for this patient: No Vital Signs: 02/05/22 11:01 Temperature 98.9 F Temperature Source Oral Pulse Rate [Right Brachial] 74 Respiratory Rate 18 Blood Pressure [Right Arm] 120/75 Blood Pressure Mean [Right Arm] 90 Blood Pressure Source [Right Arm] Automatic Cuff Blood Pressure Position [Right Arm] Sitting 02 Sat by Pulse Oximetry 94 L Oxygen Delivery Method Room Air Medical Decision Narrative: Patient states that she has taken Doxy and medrol pack in the past without complications or reactions [facility] [place] HPI - General Stated complaint: congestion Time Seen by Provider: 02/05/22 11:33 Mode of Arrival: Ambulatory Source of Information: Patient Limitations: No Limitations Description of Symptoms (Recalled from Triage Doc. by RN): Conjestion, muscle tightness HEENT Symptoms (Recalled from RN notes): No Resp Symptoms (Recalled from RN notes): Yes Skin Symptoms (Recalled from RN notes): No MS Symptoms (Recalled from RN notes): Yes Functional Status (Recalled from RN notes): wnl - History of Present Illness Provider Complaint: Patient statse that she has been having sinus pain and pressure for about 3 weeks States that she just got off zpack but doesnt feel like it cleared it up she is still having pain and pressure behind her eyes and feeling of fullness in ears like she gets with sinus infection - Related Data Home Medications Medication Instructions Recorded Confirmed levothyroxine 137 mcg tablet 137 mcg PO DAILY tab 04/12/18 01/09/22 fenofibrate 160 mg tablet 160 mg PO DAILY #30 tab 06/22/19 01/09/22 dexlansoprazole 60 mg 60 mg PO DAILYP PRN cap 01/23/21 01/09/22 capsule,biphase delayed release methocarbamol 500 mg tablet 500 mg PO QIDP PRN tab 01/23/21 01/09/22 Bupivacaine HCl/Pf [Bupivacaine 1.3 mg IT CONT 02/24/21 01/09/22 0.25% 10mL Inj] Hydromorphone HCl/Pf [Dilaudid 2.6 mg IT CONT 02/24/21 01/09/22 1mg/ml inj] lubiprostone 24 mcg capsule 24 mcg PO DAILY PRN 03/24/21 01/09/22 zolpidem 10 mg tablet 10 mg PO DAILY PRN 03/24/21 01/09/22 Amlodipine Besylate 2.5 mg PO DAILY 05/05/21 01/09/22 Nitroglycerin 0.4 mg SUBLINGUAL Q5M 05/05/21 01/09/22 diclofenac sodium 2 pump TOPICAL NEEDED PRN g 05/15/21 01/09/22 Tizanidine HCl [Zanaflex 4mg 4 mg PO TID 08/29/21 01/09/22 tab] Tramadol HCl [Tramadol 50mg 50 mg PO BID 08/29/21 01/09/22 Tab] rimegepant 75 mg disintegrating 75 mg PO DAILY tab 10/06/21 01/09/22 tablet Gabapentin [Neurontin 300mg 300 mg PO TID 11/17/21 01/09/22 capsule] Nystatin [Nystatin Susp 500,000 4 ml PO QID 11/17/21 01/09/22 Units/5mL Udc] bisoproloL fumarate [Bisoprolol See Rx Instructions .ROUTE .COMPLEX 11/17/21 01/09/22 Fumarate] calcium carbonate 500 mg calcium 1,000 mg PO BID tab 12/24/21 01/09/22 (1,250 mg) chewable tablet Previous Rx's Medication Instructions Recorded Tizanidine HCl [Zanaflex 4mg 4 mg PO TID #90 tab 12/02/21 tab] Tramadol HCl [Tramadol 50mg 50 mg PO BID #60 tab
[2022-02-05 11:46] VITALS: BP 120/75; PULSE 74; RESP 18; TEMP 37.2; O2SAT 94
== END 2022-02-05 11:47 | disposition home or self-care (01) ==
PROVIDERS: Emergency Provider Nurse Practitioner
DX: J32.9 Chronic sinusitis, unspecified (principal)
CPT/HCPCS: 99212; G0463

== ENCOUNTER 2022-03-27 11:53 | Emergency (ER) | payer OTHER, SELFPAY ==
[2022-03-27 12:13] VITALS: BP 147/87; PULSE 69; RESP 18; TEMP 36.7; O2SAT 97; BMI 40.4
--- NOTE | 2022-03-27 12:17 | HMH.EDUTC ---
[facility] [place] Disposition Clinical Impression: Irritation of oral cavity Disposition: Home, Self-Care Condition on Discharge: Good Instructions: DI for Mouth Pain Additional Instructions: Rinse mouth well with warm salt water Milk of Magnesia dabbed on area may help with pain FOllow up with your Dentist if no improvement or any worsening of symptoms Return if needed Referrals: Gayla Galan MD [Primary Care Provider] - As needed Time of Disposition: 12:22 Medical Decision Making - George Inquiry Pt receiving controlled substance: No George was queried for this patient: No Vital Signs: 03/27/22 12:13 Temperature 98.1 F Temperature Source Oral Pulse Rate [Left] 69 Respiratory Rate 18 Blood Pressure [Right Arm] 147/87 H Blood Pressure Mean [Right Arm] 107 02 Sat by Pulse Oximetry 97 [facility] [place] HPI - General Stated complaint: possible rash inside mouth Time Seen by Provider: 03/27/22 12:17 Mode of Arrival: Ambulatory Source of Information: Patient Limitations: No Limitations Description of Symptoms (Recalled from Triage Doc. by RN): pt c/o of mouth pain. HEENT Symptoms (Recalled from RN notes): Yes Resp Symptoms (Recalled from RN notes): No Skin Symptoms (Recalled from RN notes): No MS Symptoms (Recalled from RN notes): No Functional Status (Recalled from RN notes): wnl - History of Present Illness Provider Complaint: Patient states that she has been having irritation inside her mouth State that she has been using salt water but hasnt helped much so she came in to get it looked at - Related Data Home Medications Medication Instructions Recorded Confirmed levothyroxine 137 mcg tablet 137 mcg PO DAILY tab 04/12/18 02/27/22 fenofibrate 160 mg tablet 160 mg PO DAILY #30 tab 06/22/19 02/27/22 dexlansoprazole 60 mg 60 mg PO DAILYP PRN cap 01/23/21 02/27/22 capsule,biphase delayed release methocarbamol 500 mg tablet 500 mg PO QIDP PRN tab 01/23/21 02/27/22 Bupivacaine HCl/Pf [Bupivacaine 1.3 mg IT CONT 02/24/21 02/27/22 0.25% 10mL Inj] Hydromorphone HCl/Pf [Dilaudid 2.6 mg IT CONT 02/24/21 02/27/22 1mg/ml inj] lubiprostone 24 mcg capsule 24 mcg PO DAILY PRN 03/24/21 02/27/22 zolpidem 10 mg tablet 10 mg PO DAILY PRN 03/24/21 02/27/22 Amlodipine Besylate 2.5 mg PO DAILY 05/05/21 02/27/22 Nitroglycerin 0.4 mg SUBLINGUAL Q5M 05/05/21 02/27/22 diclofenac sodium 2 pump TOPICAL NEEDED PRN g 05/15/21 02/27/22 Tizanidine HCl [Zanaflex 4mg 4 mg PO TID 08/29/21 02/27/22 tab] Tramadol HCl [Tramadol 50mg 50 mg PO BID 08/29/21 02/27/22 Tab] rimegepant 75 mg disintegrating 75 mg PO DAILY tab 10/06/21 02/27/22 tablet bisoproloL fumarate [Bisoprolol See Rx Instructions .ROUTE .COMPLEX 11/17/21 02/27/22 Fumarate] calcium carbonate 500 mg calcium 1,000 mg PO BID tab 12/24/21 02/27/22 (1,250 mg) chewable tablet Previous Rx's Medication Instructions Recorded diazepam 5 mg tablet 5 mg PO ONCE PRN #5 tab 12/18/21 Cyclobenzaprine HCl 10 mg PO BIDP PRN #30 tab 12/24/21 [Cyclobenzaprine 10mg Tab] bumetanide 1 mg tablet See Rx Instructions .ROUTE 01/02/22 .COMPLEX #30 tab albuterol sulfate 90 mcg/actuation 2 inh INHALATION Q6H PRN 90 Days 01/23/22 aerosol inhaler #8.5 g budesonide-formoterol HFA 160 2 puff INHALATION BID 90 Days 01/23/22 mcg-4.5 mcg/actuation aerosol #10.2 g inhaler Doxycycline Monohydrate 100 mg PO BID 7 Days #14 tab 02/05/22 [Doxycycline [place] 100mg Tab] Gabapentin 600 mg PO TID #90 tab 02/06/22 Allergies Allergy/AdvReac Type Severity Reaction Status Date / Time niacin [NIACIN] Allergy Severe S-DIFF. Verified 03/27/22 12:17 BREATHING Penicillins [PENICILLINS] Allergy Intermediate I-HIVES Verified 03/27/22 12:17 ondansetron Allergy Mild ABD PAIN Verified 03/27/22 12:17 [From ZOFRAN ( HYDROCHLORIDE)] clindamycin Allergy Verified 03/27/22 12:17 metoclopramide [From Reglan] Allergy Verified 03/27/22 12:17 sulfamethoxazole Allergy Cole
[2022-03-27 12:25] VITALS: BP 147/87; PULSE 69; RESP 18; TEMP 36.7
== END 2022-03-27 12:27 | disposition home or self-care (01) ==
PROVIDERS: Emergency Provider Nurse Practitioner Family; PCP Family Medicine
DX: K13.6 Irritative hyperplasia of oral mucosa (principal); Z88.0 Allergy status to penicillin; Z88.1 Allergy status to other antibiotic agents; Z88.2 Allergy status to sulfonamides
CPT/HCPCS: 99212; G0463

== ENCOUNTER 2022-04-10 11:31 | Emergency (ER) | payer OTHER, SELFPAY ==
[2022-04-10 11:50] VITALS: BP 139/74; PULSE 60; RESP 18; TEMP 36.9; O2SAT 97; BMI 39.5
--- NOTE | 2022-04-10 12:27 | HMH.EDUTC ---
[facility] [place] Disposition Clinical Impression: Migraine Qualifiers: Migraine type: unspecified Status migrainosus presence: without status migrainosus Intractability: not intractable Qualified Code(s): G43.909 - Migraine, unspecified, not intractable, without status migrainosus Disposition: Home, Self-Care Condition on Discharge: Good Instructions: Migraine -- Adult, DI for Migraine Additional Instructions: Go home lay down and sleep off remainder of migraine headache Follow up with your Fmaily Doctor if migraines continue Return if needed Straight to ER if any life threatening symptoms Prescriptions: methylPREDNISolone [Medrol 4mg tab] 4 mg PO DIRECTED #21 tab Transmission Status: Pending to Clinic [facility] Referrals: Gayla Galan MD [Primary Care Provider] - As needed Time of Disposition: 13:12 Medical Decision Making - George Inquiry Pt receiving controlled substance: No George was queried for this patient: No Vital Signs: 04/10/22 11:50 04/10/22 13:07 Temperature 98.4 F 98.4 F Temperature Source Oral Pulse Rate 60 Pulse Rate [Right Brachial] 60 Respiratory Rate 18 18 Blood Pressure 139/74 Blood Pressure [Right Arm] 139/74 Blood Pressure Mean [Right Arm] 95 Blood Pressure Source [Right Arm] Automatic Cuff Blood Pressure Position [Right Arm] Sitting 02 Sat by Pulse Oximetry 97 Oxygen Delivery Method Room Air Orders (Tests/Meds): ED MEDICATIONS Discontinued Medications Generic Name Dose Route Start Last Admin Trade Name Freq PRN Reason Stop Dose Admin Diphenhydramine HCl 25 mg 04/10/22 12:42 04/10/22 12:50 Diphenhydramine 50mg/Ml Vial IM 04/10/22 12:43 25 mg ONCE ONE Administration Ketorolac Tromethamine 60 mg 04/10/22 12:42 04/10/22 12:50 Ketorolac 60mg/2ml Vial IM 04/10/22 12:43 60 mg ONCE ONE Administration Methylprednisolone Sodium Succinate 125 mg 04/10/22 12:54 04/10/22 13:02 Methylprednisolone Sod Succ 125mg Vial IM 04/10/22 12:55 125 mg ONCE ONE Administration Promethazine HCl 12.5 mg 04/10/22 12:42 04/10/22 12:50 Promethazine Hcl 12.5mg Tablet PO 04/10/22 12:43 12.5 mg ONCE ONE Administration Medical Decision Narrative: Patient states that she has taken phenergan, toradol, and benadryl in the past without complications or reactions [facility] [place] HPI - General Stated complaint: h/a, head/neck swelling Time Seen by Provider: 04/10/22 12:33 Mode of Arrival: Ambulatory Source of Information: Patient Limitations: No Limitations Description of Symptoms (Recalled from Triage Doc. by RN): PATIENT C/O MIGRAINE, SWOLLEN NECK AND FACE SINCE YESTERDAY HEENT Symptoms (Recalled from RN notes): Yes Resp Symptoms (Recalled from RN notes): No Skin Symptoms (Recalled from RN notes): No MS Symptoms (Recalled from RN notes): No Functional Status (Recalled from RN notes): WNL - History of Present Illness Provider Complaint: Patient states that she has a history of migraine headaches States that she felt it coming on a few days ago and today it was worse States that it makes her eyes feels swollen and hurts from the back of neck to the top of her head like her other migraines do Denies vision changes and denies worse headache of her life - Related Data Home Medications Medication Instructions Recorded Confirmed levothyroxine 137 mcg tablet 137 mcg PO DAILY tab 04/12/18 02/27/22 fenofibrate 160 mg tablet 160 mg PO DAILY #30 tab 06/22/19 02/27/22 dexlansoprazole 60 mg 60 mg PO DAILYP PRN cap 01/23/21 02/27/22 capsule,biphase delayed release methocarbamol 500 mg tablet 500 mg PO QIDP PRN tab 01/23/21 02/27/22 Bupivacaine HCl/Pf [Bupivacaine 1.3 mg IT CONT 02/24/21 02/27/22 0.25% 10mL Inj] Hydromorphone HCl/Pf [Dilaudid 2.6 mg IT CONT 02/24/21 02/27/22 1mg/ml inj] lubiprostone 24 mcg capsule 24 mcg PO DAILY PRN 03/24/21 02/27/22 zolpidem 10 mg tablet 10 mg PO DAILY PRN 03/24/21 02/27/22 Amlodipine Besylate 2.5 mg PO DAILY
[2022-04-10 13:07] VITALS: BP 139/74; PULSE 60; RESP 18; TEMP 36.9; O2SAT 97
== END 2022-04-10 13:17 | disposition home or self-care (01) ==
PROVIDERS: Emergency Provider Nurse Practitioner; PCP Family Medicine
DX: G43.909 Migraine, unspecified, not intractable, without status migrainosus (principal); Z88.0 Allergy status to penicillin
CPT/HCPCS: 96372

== ENCOUNTER 2022-04-27 13:07 | Day surgery (SDC) | payer OTHER, SELFPAY ==
[2022-04-27 13:31] VITALS: BP 121/71; PULSE 70; RESP 20; TEMP 37; O2SAT 96; BMI 36.6
[2022-04-27 13:52] VITALS: BP 147/81; PULSE 80; RESP 18; O2SAT 97
[2022-04-27 13:54] VITALS: BP 149/76; PULSE 63; RESP 18; O2SAT 100
--- NOTE | 2022-04-27 13:57 | HMH.PMPROC ---
- Procedure Date: 04/27/22 Time: 13:57 Anesthesiologist:: TYLOR Palomo Complications:: None Pre-procedure Diagnosis:: Degenerative disc disease of lumbar spine with lumbar radiculopathy symptoms Post-procedure Diagnosis:: Same Indications for Procedure:: Patient is a pleasant 51-year-old female who presents today for intrathecal pain pump refill and reprogram. The patient is being treated for degenerative disease of lumbar spine with lumbar radiculopathy symptoms. Patient is currently being managed with Dilaudid 20 mg/mL at a rate of 3.75 mg/day. Patient denies any side effects from this medication. Patient is stable on this medication. Patient is also wanting refills on her gabapentin. She says that she was started on gabapentin 300 mg 3 times a day in the past but it was not enough to cover her neuropathic pain. She was tried on gabapentin 600 mg 3 times a day but she felt like that was too much. We will start her at gabapentin 400 mg 3 times a day. Patient rates pain a 5 out of 10. Drug screen is appropriate. George [id number] with an active morphine equivalent of 0 has been reviewed and is appropriate. Physical exam General: Alert and oriented x3, no acute distress, pleasant and cooperative Lungs: Respirations even and unlabored, symmetrical chest expansion Eyes: PERRL Musculoskeletal: Flexion and extension of lumbar [spine] somewhat guarded secondary to pain, [antalgic gait noted] Neurological: Speech clear, no gross sensory deficit Procedure Details:: Informed consent was obtained and the risk and benefits of the procedure were explained to the patient. The patient was taken to the procedure room where noninvasive monitoring was placed including noninvasive blood pressure cuff and pulse oximeter. Patient's pump was interrogated. The area over the pump was cleansed with chlorhexidine as a cleansing solution. In sterile fashion the pump was accessed with a 22-gauge needle. Approximately 4 mls of the pump solution was removed and discarded appropriately. The pump was then refilled with 20 mL's of Dilaudid 20 mg/mL. The needle was withdrawn and a bandage was placed over the puncture site. The infusion rate was reprogrammed and continued at Dilaudid 3.75 mg/day. The patient tolerated well with no complication. Plan and Disposition:: We will see the patient back in the clinic at the next intrathecal refill. Patient has been instructed to contact the clinic with any concerns before the next appointment. Dr. Boyce has reviewed this note and agrees with this plan of care. This note was dictated using voice recognition software and make contain errors or omissions.
[2022-04-27 14:04] VITALS: BP 138/74; PULSE 76; RESP 17; O2SAT 97
--- NOTE | 2022-04-27 14:13 | XR_ITS ---
FINAL REPORT CLINICAL HISTORY: CONSTIPATION FINDINGS: A single upright view of the abdomen was obtained. There is a nonobstructive bowel gas pattern. There are no abnormally dilated loops of small bowel. There is no free air. There is a moderate-large amount of retained stool. There are postoperative changes in the right abdomen and in the pelvis. IMPRESSION: 1. Nonobstructive bowel gas pattern. 2. Moderate-large amount of retained stool consistent constipation. Reviewed, Interpreted and Dictated by Eddie Frost III, MD Transcribed by Penny Gandhi Authenticated and [facility]
--- NOTE | 2022-04-27 14:41 | PC.NURSE ---
1400- Pt. c/o slight nausea, dizziness and stated I feel like I'm going to pass out . Obtained pt. vital signs at this time, VSS. Advised pt. to remain seated and wait for 10 minutes for re-evaluation. 1404- pt. left bay without notifying staff
[2022-04-27 15:42] LABS: Basophils # 0.1 K/mm3 (0-0.2); Basophils % 1.6 % (0.1-2.0); Eosinophils # 0.1 K/mm3 (0.0-0.4); Eosinophils % 1.7 % (0.1-12.0); Hematocrit 42.1 % (37.0-47.0); Hemoglobin 13.6 g/dL (12.2-16.2); Lymphocytes # 2.3 K/mm3 (0.7-4.5); Lymphocytes % 28.9 % (10-50); Mean Corpuscular HGB Conc 32.2 g/dL (31.8-35.4); Mean Corpuscular Volume 93.2 fl (81-99); Mean Platelet Volume 8.5 fl (7.4-10.4); Monocytes # 0.4 K/mm3 (0.1-1.0); Monocytes % 4.9 % (1.7-9.3); Neutrophils % 62.8 % (37.0-80.0); Platelet Count 229 K/mm3 (142-424); Red Blood Count 4.52 M/mm3 (4.20-5.40); Red Cell Distribution Width 15.3 % (11.5-17.5)
[2022-04-27 16:09] LABS: Alanine Aminotransferase 27 U/L (12-78); Albumin Level 4.4 g/dl (3.5-5.0); Albumin/Globulin Ratio 1.6 (1.1-1.8); Alkaline Phosphatase 71 U/L (38-126); Anion Gap 11.2 mEq/L (5-15); Aspartate Amino Transferase 27 U/L (14-36); Blood Urea Nitrogen 23 mg/dl (7-17); Calcium 9.8 mg/dl (8.4-10.2); Carbon Dioxide 33 mmol/L (22.0-30.0); Chloride 98 mmol/L (98-107); Creatinine Clearance Estimated 128 mL/min (50-200); Estimated Glomerular Filt Rate 75 ml/min (>60); GFR (African American) 91 ML/MIN (>60); Globulin 2.8 g/dL (1.3-3.2); Glucose 92 mg/dl (74-100); Potassium 4.2 mmoL/L (3.5-5.1); Sodium 138 mmol/L (136-145); Total Protein,Serum 7.2 g/dl (6.3-8.2)
[2022-04-27 16:10] LABS: Bilirubin,Total 0.1 mg/dl (0.2-1.3)
[2022-04-27 16:18] LABS: Amphetamine/Metha Screen,Urine Negative ng/ml (<1000)
[2022-04-27 16:19] LABS: Barbiturates Screen,Urine Negative ng/ml (<200)
[2022-04-27 16:20] LABS: Benzodiazepines Screen,Urine Negative ng/ml (<200)
[2022-04-27 16:21] LABS: Cannabinoid Screen,Urine Negative ng/ml (<50); Cocaine Screen,Urine Negative ng/ml (<300)
[2022-04-27 16:22] LABS: Methadone Screen,Urine Negative ng/ml (<300); Opiate Screen,Urine Positive ng/ml (<300)
[2022-04-27 16:23] LABS: Phencyclidine Screen,Urine Negative ng/ml (<25)
[2022-04-27 16:26] LABS: 25-OH Vitamin D, Total 35.3 ng/mL (30-100)
[2022-04-27 16:27] LABS: Free T4 (Free Thyroxine) 1.31 ng/dl (0.78-2.19)
[2022-04-27 16:40] LABS: Thyroid Stimulating Hormone 1.84 uIU/mL (0.465-4.68)
[2022-04-27 16:50] LABS: Ferritin 62.5 ng/ml (11.1-264)
[2022-04-27 16:58] LABS: Iron 69 ug/dL (37-170)
[2022-04-27 17:16] LABS: Vitamin B12 528 pg/mL (239-931)
[2022-04-27 17:29] LABS: Folate > 20.00 ng/mL
[2022-04-27 17:38] LABS: Activated Partial Thrombo Time 27.9 seconds (22.8-30.6); INR 0.92 (0.9-1.1); Prothrombin Time 10.5 seconds (10.1-12.5)
[2022-04-29 14:19] LABS: Peripheral Smear Review Scanned Result
[2022-04-30 02:34] LABS: Factor VIII Activity 106 % (56-140)
[2022-05-02 21:15] LABS: Vitamin C 0.9 mg/dL (0.4-2.0)
[2022-05-13 09:13] LABS: Codeine Negative (Cutoff=100); Hydrocodone Negative (Cutoff=100); Hydromorphone Positive (.); Morphine Negative (Cutoff=100); Opiates Positive (.)
== END 2022-04-27 14:04 | disposition home or self-care (01) ==
LOC: SC.PAINP 13:10
PROVIDERS: PCP Family Medicine; Visit Provider Student in an Organized Health Care Education/Training Program
DX: M51.16 Intervertebral disc disorders with radiculopathy, lumbar region (principal)
CPT/HCPCS: 36415; 62370; 74018; 80053; 80305; 80361; 80365; 82180; 82306; 82607; 82728; 82746; 83540; 84439; 84443; 85025; 85240; 85610; 85730; G0480

== ENCOUNTER 2022-05-19 08:05 | Emergency (ER) | payer OTHER, SELFPAY ==
[2022-05-19 08:35] VITALS: BP 116/63; PULSE 65; RESP 19; TEMP 36.5; O2SAT 97; BMI 40.7
--- NOTE | 2022-05-19 08:52 | HMH.EDUTC ---
[facility] [place] Clinical Impression: Fatigue Qualifiers: Fatigue type: unspecified Qualified Code(s): R53.83 - Other fatigue Arthralgia Qualifiers: Joint pain location: unspecified Qualified Code(s): M25.50 - Pain in unspecified joint Serous otitis media Qualifiers: Chronicity: acute Laterality: bilateral Recurrence: non-recurrent Qualified Code(s): H65.03 - Acute serous otitis media, bilateral Disposition: Home, Self-Care Condition on Discharge: Good Instructions: DI for Arthralgia Additional Instructions: Drink plenty of fluids. Take tylenol or ibuprofen for pain or fever. Take the medications as directed. Follow up with your regular doctor. GO TO THE ER FOR ANY WORSENING SYMPTOMS Don't start the oral steroids until tomorrow, since you had the shot here today. Prescriptions: predniSONE [Deltasone 10mg tablet] 10 mg PO DAILY 9 Days #21 tab Transmission Status: Received by [facility] Referrals: Gayla Galan MD [Primary Care Provider] - Time of Disposition: 10:15 Medical Decision Making - Medical Records Medical records reviewed: No: I reviewed the patient's medical records. - George Inquiry Pt receiving controlled substance: No Vital Signs: 05/19/22 08:35 05/19/22 11:30 Temperature 97.7 F 97.7 F Temperature Source Oral Pulse Rate 65 Pulse Rate [Left] 65 Respiratory Rate 19 19 Blood Pressure 116/63 Blood Pressure [Right Arm] 116/63 Blood Pressure Mean [Right Arm] 80 02 Sat by Pulse Oximetry 97 Orders (Tests/Meds): ED MEDICATIONS Discontinued Medications Generic Name Dose Route Start Last Admin Trade Name Jonna PRN Reason Stop Dose Admin Lactated Ringer's 1,000 mls @ 999 mls/hr 05/19/22 10:15 05/19/22 10:15 Lactated Ringer's 1000 Ml Bag IV 05/19/22 11:15 999 mls/hr .Q1H1M WALLY Administration Ketorolac Tromethamine 60 mg 05/19/22 09:08 05/19/22 09:24 Ketorolac 60mg/2ml Vial IM 05/19/22 09:09 60 mg ONCE ONE Administration Methylprednisolone Sodium Succinate 125 mg 05/19/22 09:08 05/19/22 09:24 Methylprednisolone Sod Succ 125mg Vial IM 05/19/22 09:09 125 mg ONCE ONE Administration Medical Decision Narrative: She requests to have a liter of ns infused to see if it helps her feel better. She thinks that she has not been drinking enough fluids. Her iv insertion was difficult but a 22 gauge iv was obtained. She bends her arm and this stops the flow of fluids. It took over 2 hours to get the liter of ns infused. [facility] [place] HPI - General Stated complaint: ear pain, leg pain/swelling Time Seen by Provider: 05/19/22 08:52 Description of Symptoms (Recalled from Triage Doc. by RN): patient comes in with complaints of left ear pain, left foot pain and swelling, and clavicle swelling. patient states that she did not do anything in particular to cause pain. ear pain began a few days ago. and leg/clavicle pain has been going on for a few weeks. HEENT Symptoms (Recalled from RN notes): Yes Resp Symptoms (Recalled from RN notes): No Skin Symptoms (Recalled from RN notes): No MS Symptoms (Recalled from RN notes): Yes Functional Status (Recalled from RN notes): wnl - History of Present Illness Provider Complaint: She has a history of chronic arthralgia of multiple joints. She came in today because her left foot and right shoulder have been hurting more that normal. She is having bilateral ear pain and pressure also. Her left ear is worse than her right. She also has chronic fatigue, but her fatigue has been worsening over the past 3 days. She denies any fever, chillls. - Related Data Home Medications Medication Instructions Recorded Confirmed levothyroxine 137 mcg tablet 137 mcg PO DAILY tab 04/12/18 04/27/22 fenofibrate 160 mg tablet 160 mg PO DAILY #30 tab 06/22/19 04/27/22 dexlansoprazole 60 mg 60 mg PO DAILYP PRN cap 01/23/21 04/27/22 capsule,biphase delayed release methocarbamol 500 mg tablet 500 mg PO QIDP
[2022-05-19 11:30] VITALS: BP 116/63; PULSE 65; RESP 19; TEMP 36.5
== END 2022-05-19 11:31 | disposition home or self-care (01) ==
PROVIDERS: Emergency Provider Nurse Practitioner Family; PCP Family Medicine
DX: R53.83 Other fatigue (principal); M25.50 Pain in unspecified joint; H65.03 Acute serous otitis media, bilateral; I25.10 Atherosclerotic heart disease of native coronary artery without angina pectoris; I10 Essential (primary) hypertension; I25.2 Old myocardial infarction; E78.5 Hyperlipidemia, unspecified
CPT/HCPCS: 99212; G0463

== ENCOUNTER → 2022-06-04 14:52 | Outpatient (CLI) | payer OTHER, SELFPAY ==
--- NOTE | 2022-06-04 14:57 | XR_ITS ---
FINAL REPORT TECHNIQUE: Chest PA & Lateral CLINICAL HISTORY: SOB FINDINGS: TWO VIEW CHEST 2 views of the chest were performed. There is cervical fusion hardware in the lower cervical spine. There is mild cardiomegaly. The mediastinum is within normal limits. There is no acute cardiopulmonary process. There are chronic changes in both lungs. There are no pleural effusions. There is no pneumothorax. The bony thorax appears intact. IMPRESSION: No acute cardiopulmonary process. Reviewed, Interpreted and Dictated by Edgardo Schulte MD Transcribed by Penny Gandhi Authenticated and [facility]
== END ==
PROVIDERS: PCP Family Medicine; Visit Provider Family Medicine
DX: R06.02 Shortness of breath (principal)
CPT/HCPCS: 71046

== ENCOUNTER → 2022-06-10 15:57 | Outpatient (CLI) | payer OTHER, SELFPAY ==
--- NOTE | 2022-06-10 | CA_ITS ---
APPROVED REPORT EXAM: Comprehensive 2D, Doppler, and color-flow Echocardiogram [employer]: Margarita Parish, GEORGE, RVS Ht: 5 ft 6 in Wt: 197lbs BSA: 1.99 BP: 116/63 mmHg Indications: edema, Hx-covid with chronic lung changes, SOA, HTN, HLD, CAD Echo Enhancing Agent Comments: Poor acoustics due to lung impedence, with limited windows 2D Dimensions IVSd 1.08 cm LVEF (Visual) 62.20 % PWd 0.85 cm LA Volume 54.50 mL LVDd 4.97 cm LA Volume Index 27.40 mL/m2 (M/F) 16-34 LVDs 3.30 cm Aortic Root 2.94 cm Left Atrium 3.39 cm LVOT 2.05 cm (M/F) 1.5-2.5 M-Mode Dimensions LA Diam 4.12 cm (1.9-4.0) Ao Diam 2.91 cm (2.0-3.7) EPSs 0.77 cm TAPSE 2.69 (<1.7) LV Diastology E Decel Time 247.00 (160-240 msec) E/A Ratio 1.13 MED E' 5.00 (< 7 cm/sec) MED A' 11.00 cm/s E'/MED E' Ratio 14.16 (>14) LAT E' 6.00 (<10 cm/sec) LAT A' 12.00 cm/s E/LAT E' Ratio 11.80 (>14) Aortic Valve LVOT Max 101.00 (70-110 cm/s) LVOT VTI 24.37 cm AoV Peak Eusebio. 197.00 (50-130 cm/s) AO Peak GR. 15.50 mmHg AO Mean GR. 7.20 (<5 mmHg) AO VTI 36.67 (18-25 cm) MARQUIS (VTI) 2.19 (2.5-4.5 cm2) Mitral Valve MV A Velocity 63.00 (40-130 cm/s) E/A Ratio 1.13 MV Decel. Time 247.00 (160-240 ms) MV PHT 70.00 ms Pulmonary Valve PV Peak Velocity 77.00 (50-150 cm/s) Tricuspid Valve TR P. Velocity 197.00 cm/s RAP Estimate 10.00 mmHg RVSP 25.50 mmHg Left Ventricle Left atrium is mildly enlarged, left ventricle normal size mild concentric left ventricular hypertrophy, estimated ejection fraction 55% with no regional wall motion abnormality, grade 1 diastolic dysfunction seen without tissue Doppler evidence of raise left atrial pressure. Right Ventricle Right atrium and right ventricle are normal size and contractility. Aortic Valve Aortic valve is grossly normal there is no aortic stenosis aortic insufficiency. Mitral Valve Mitral valve grossly normal, there is trace mitral regurgitation. Tricuspid Valve Tricuspid valve grossly normal, there is no significant tricuspid regurgitation noted. Pulmonic valve is poorly visualized. Great Vessels Aortic root is normal size. Inferior vena cava is poorly visualized. Pericardium No significant pericardial effusion noted. Conclusion 1. Mildly enlarged atrium, normal left ventricular size mild concentric left ventricular hypertrophy, estimated ejection fraction 55% with no regional wall motion abnormality, grade 1 diastolic dysfunction seen without tissue Doppler evidence of raise left atrial pressure. 2. Trace mitral regurgitation. 3. No significant pericardial effusion. 4. Inferior vena cava is poorly visualized. Electronically signed by : Sanchez Blanchard MD 06/11/2022 06:21:49
== END ==
PROVIDERS: PCP Family Medicine; Visit Provider Family Medicine
DX: R60.1 Generalized edema (principal); R35.0 Frequency of micturition; R23.8 Other skin changes; R06.02 Shortness of breath; E03.8 Other specified hypothyroidism; E06.3 Autoimmune thyroiditis
CPT/HCPCS: 93306

== ENCOUNTER → 2022-06-11 10:18 | Outpatient (CLI) | payer OTHER, SELFPAY | PROVIDERS: PCP Family Medicine; Visit Provider Internal Medicine Pulmonary Disease | DX: R06.02 Shortness of breath (principal) ==

== ENCOUNTER 2022-06-16 16:27 | Emergency (ER) | payer OTHER, SELFPAY ==
[2022-06-16 16:33] VITALS: BP 138/71; PULSE 69; RESP 17; TEMP 36.9; O2SAT 95; BMI 40.7
--- NOTE | 2022-06-16 17:12 | HMH.EDUTC ---
[facility] [place] Clinical Impression: Arthralgia Qualifiers: Joint pain location: ankle Laterality: bilateral Qualified Code(s): M25.571 - Pain in right ankle and joints of right foot Bilateral ankle pain Qualifiers: Chronicity: acute Qualified Code(s): M25.571 - Pain in right ankle and joints of right foot Disposition: Home, Self-Care Condition on Discharge: Good Instructions: DI for Arthralgia Additional Instructions: Rest and elevate your legs as much time as possible. Don't start the oral steroids until tomorrow, since you had the shot here today. Follow up with your regular doctor. GO TO THE ER FOR ANY WORSENING SYMPTOMS Prescriptions: predniSONE [Deltasone 10mg tablet] 10 mg PO DAILY 9 Days #21 tab Transmission Status: Received by [facility] [employer] Referrals: Gayla Galan MD [Primary Care Provider] - Time of Disposition: 17:24 Medical Decision Making - Medical Records Medical records reviewed: No: I reviewed the patient's medical records. - George Inquiry Pt receiving controlled substance: No Vital Signs: 06/16/22 16:33 06/16/22 17:42 Temperature 98.4 F 98.4 F Temperature Source Oral Pulse Rate 69 Pulse Rate [Left] 69 Respiratory Rate 17 17 Blood Pressure 138/71 Blood Pressure [Right Arm] 138/71 Blood Pressure Mean [Right Arm] 93 02 Sat by Pulse Oximetry 95 Orders (Tests/Meds): ED MEDICATIONS Discontinued Medications Generic Name Dose Route Start Last Admin Trade Name Alexq PRN Reason Stop Dose Admin Ketorolac Tromethamine 60 mg 06/16/22 17:05 06/16/22 17:16 Ketorolac 60mg/2ml Vial IM 06/16/22 17:06 60 mg ONCE ONE Administration Methylprednisolone Sodium Succinate 125 mg 06/16/22 17:05 06/16/22 17:15 Methylprednisolone Sod Succ 125mg Vial IM 06/16/22 17:06 125 mg ONCE ONE Administration [facility] [place] - General Stated complaint: Ankle pain no accident Time Seen by Provider: 06/16/22 17:12 Mode of Arrival: Ambulatory Source of Information: Patient Description of Symptoms (Recalled from Triage Doc. by RN): patient comes in with complaints of ankle pain. patient states that she did not do anything that she can remember. patient states that it is both ankle and legs. she has had pain for awhile but it has been worsening over the past week HEENT Symptoms (Recalled from RN notes): No Resp Symptoms (Recalled from RN notes): No Skin Symptoms (Recalled from RN notes): No MS Symptoms (Recalled from RN notes): Yes Functional Status (Recalled from RN notes): n/a - History of Present Illness Provider Complaint: She states that she has had bilateral ankle pain for the past 3 days. She denies any injury. - Related Data Home Medications Medication Instructions Recorded Confirmed levothyroxine 137 mcg tablet 137 mcg PO DAILY tab 04/12/18 06/11/22 fenofibrate 160 mg tablet 160 mg PO DAILY #30 tab 06/22/19 06/11/22 dexlansoprazole 60 mg 60 mg PO DAILYP PRN cap 01/23/21 06/11/22 capsule,biphase delayed release Bupivacaine HCl/Pf [Bupivacaine 1.3 mg IT CONT 02/24/21 06/11/22 0.25% 10mL Inj] Hydromorphone HCl/Pf [Dilaudid 2.6 mg IT CONT 02/24/21 06/11/22 1mg/ml inj] Nitroglycerin 0.4 mg SL Q5M 05/05/21 06/11/22 diclofenac sodium 2 pump TP NEEDED PRN g 05/15/21 06/11/22 Tizanidine HCl [Zanaflex 4mg 4 mg PO TID 08/29/21 06/11/22 tab] rimegepant 75 mg disintegrating 75 mg PO DAILY tab 10/06/21 06/11/22 tablet calcium carbonate 500 mg calcium 1,000 mg PO BID tab 12/24/21 06/11/22 (1,250 mg) chewable tablet Budesonide/Formoterol Fumarate 2 puff IH BID 04/27/22 06/11/22 [Budesonide-Formoterol 160-4.5] Bumetanide See Rx Instructions .ROUTE .COMPLEX 04/27/22 06/11/22 Doxycycline Monohydrate 100 mg PO BID 04/27/22 06/11/22 [Doxycycline Hendricks 100mg Tab] Gabapentin 600 mg PO TID 04/27/22 06/11/22 baclofen 10 mg tablet 10 mg PO DAILY PRN tab 06/11/22 06/11/22 gabapentin 400 mg capsule 400 mg PO TID PRN cap
[2022-06-16 17:42] VITALS: BP 138/71; PULSE 69; RESP 17; TEMP 36.9
== END 2022-06-16 17:43 | disposition home or self-care (01) ==
PROVIDERS: Emergency Provider Nurse Practitioner Family; PCP Family Medicine
DX: M25.571 Pain in right ankle and joints of right foot (principal); M25.572 Pain in left ankle and joints of left foot; I10 Essential (primary) hypertension; I25.10 Atherosclerotic heart disease of native coronary artery without angina pectoris; E78.5 Hyperlipidemia, unspecified; E03.9 Hypothyroidism, unspecified; G43.909 Migraine, unspecified, not intractable, without status migrainosus; Q07.00 Arnold-Chiari syndrome without spina bifida or hydrocephalus; Z79.1 Long term (current) use of non-steroidal anti-inflammatories (NSAID); Z79.51 Long term (current) use of inhaled steroids; Z79.899 Other long term (current) drug therapy; Z88.0 Allergy status to penicillin; Z88.1 Allergy status to other antibiotic agents; Z88.2 Allergy status to sulfonamides; Z88.3 Allergy status to other anti-infective agents; Z88.8 Allergy status to other drugs, medicaments and biological substances; Z82.49 Family history of ischemic heart disease and other diseases of the circulatory system; Z80.9 Family history of malignant neoplasm, unspecified
CPT/HCPCS: 96372; 99213; G0463

== ENCOUNTER 2022-06-19 11:49 | Emergency (ER) | payer OTHER, SELFPAY ==
[2022-06-19 11:49] VITALS: BP 115/72; PULSE 66; RESP 16; TEMP 36.8; O2SAT 95; BMI 39.9
--- NOTE | 2022-06-19 11:49 | ECG_ITS ---
APPROVED REPORT Exam: Resting ECG HR:63 bpm ECG Measurements Heart Rate 63 AXES NM 179 P 43 QRSd 101 QRS 11 QT 378 T 32 QTc 386 Conclusion SINUS RHYTHM NORMAL ECG UNCONFIRMED REPORT Electronically signed by : Reji Spencer MD 06/21/2022 08:06:47
--- NOTE | 2022-06-19 12:05 | XR_ITS ---
PROCEDURE INFORMATION: Exam: XR Chest Exam date and time: 06/19/2022 12:17 PM Age: 51 years old Clinical indication: Pain; Angina pectoris; Additional info: Cp TECHNIQUE: Imaging protocol: Radiologic exam of the chest. Views: 1 view. COMPARISON: CR XR CHEST 2V 06/04/2022 3:02 PM FINDINGS: Lungs: Lungs are well aerated without a focal area of consolidation. Pleural spaces: Unremarkable. No pleural effusion. No pneumothorax. Heart/Mediastinum: Unremarkable. No cardiomegaly. Bones/joints: Prior surgical fixation of the caudal aspect of the cervical spine. IMPRESSION: Lungs are well aerated without a focal area of consolidation.
--- NOTE | 2022-06-19 12:06 | PC.NURSE ---
Notified rad of CXR order
--- NOTE | 2022-06-19 12:51 | HMH.EDGENADL ---
ED Disposition Clinical Impression: Low blood pressure reading, Atypical chest pain Disposition: Home, Self-Care Condition on Discharge: Good Instructions: DI for Atypical Chest Pain Additional Instructions: Follow-up with your primary care provider, call for appointment. Return to the emergency department if symptoms worsen. Referrals: Gayla Galan MD [Primary Care Provider] - - Critical Care Critical Care Time: No Attestation: On 06/19/22, the high probability of a clinically significant, sudden or life threatening deterioration of the following system(s) required my full and direct attention, intervention and personal management. The time I documented below is in addition to time spent performing reported procedures but includes the following listed in this critical care notation. Medical Decision Making - Medical Records Medical records reviewed: Yes: I reviewed the patient's medical records. MR Comment: Reviewed prior heart cath results, see below. Reviewed most recent cardiology office note 06/11/2022. - George Inquiry Pt receiving controlled substance: No Vital Signs: 06/19/22 11:49 Temperature 98.3 F Temperature Source Oral Pulse Rate [Right Radial] 66 Respiratory Rate 16 Blood Pressure [Right Arm] 115/72 Blood Pressure Mean [Right Arm] 86 Blood Pressure Source [Right Arm] Automatic Cuff Blood Pressure Position [Right Arm] Sitting 02 Sat by Pulse Oximetry 95 Oxygen Delivery Method Room Air - Lab Data Lab Results 06/19/22 12:00: WBC 7.2, RBC 4.55, Hgb 13.6, Hct 41.3, MCV 90.7, MCH 29.9, MCHC 33.0, RDW 14.1, Plt Count 218, MPV 8.8, Neut % (Auto) 46.0, Lymph % (Auto) 43.5, [place] % (Auto) 6.9, Eos % (Auto) 3.2, Baso % (Auto) 0.4, Neut # (Auto) 3.3, Lymph # (Auto) 3.2, [place] # (Auto) 0.5, Eos # (Auto) 0.2, Baso # (Auto) 0.0 06/19/22 12:00: Sodium 141, Potassium 3.8, Chloride 104, Carbon Dioxide 35 H, Anion Gap 5.8, BUN 19 H, Creatinine 0.80, Estimated Creat Clear 140, Estimated GFR 75, Est GFR ( Amer) 91, Glucose 73 L, Calcium 9.2, Troponin I < 0.01 06/19/22 13:00: Urine Color Yellow, Urine Appearance Clear, Urine pH 5.5, Ur Specific [place] 1.025, Urine Protein Negative, Urine Glucose (UA) Negative, Urine Ketones Negative, Urine Blood Negative, Urine Nitrate Negative, Urine Bilirubin Negative, Urine Urobilinogen 0.2, Ur Leukocyte Esterase Negative, Urine RBC None, Urine WBC Occasional, Ur Squamous Epith Cells Occasional, Urine Bacteria Trace Result diagrams: 06/19/22 12:00 06/19/22 12:00 Orders (Tests/Meds): ED MEDICATIONS Generic Name Dose Route Start Last Admin Trade Name Freq PRN Reason Stop Dose Admin Sodium Chloride 10 ml 06/19/22 12:05 Sodium Chloride 0.9% 10ml Flush Syringe IV 07/19/22 12:04 NEEDED PRN Maintain IV Site Discontinued Medications Generic Name Dose Route Start Last Admin Trade Name Freq PRN Reason Stop Dose Admin Promethazine HCl 12.5 mg 06/19/22 14:08 06/19/22 14:13 Promethazine Hcl 25mg/Ml 1ml Vial IV 06/19/22 14:09 12.5 mg ONCE ONE Administration Sodium Chloride 1,000 ml 06/19/22 13:03 06/19/22 13:18 Sodium Chloride 0.9% 1000ml Bag IV 06/19/22 13:04 1,000 ml BOLUS ONE Administration Sodium Chloride 25 ml 06/19/22 14:08 06/19/22 14:13 Sodium Chloride 0.9% 25ml Bag IV 06/19/22 14:09 25 ml ONCE ONE Administration ORDERS Category Date Time Status Troponin I Q3H Lab 06/19/22 15:15 Ordered Troponin I Q3H Lab 06/19/22 18:15 Ordered prior heart cath: Dictated By: Phoenix Rosales 06/11/22 0938 Signed By: <Electronically signed by Phoenix Rosales> 06/11/22 1303 Problems 1. Dyspnea on exertion R06.00 2. Atypical chest pain R07.89 3. Fatigue R53.83 4. Obesity (BMI 30.0-34.9) E66.9 5. Essential hypertension I10 6. Other hyperlipidemia E78.49 Orders Orders: EKG Today R00.2 Medications Changed: From: amlodipine TAKE ONE TABLET BY MOUTH EVERY DAY 9
[2022-06-19 12:54] LABS: Basophils % 0.4 % (0.1-2.0); Eosinophils # 0.2 K/mm3 (0.0-0.4); Eosinophils % 3.2 % (0.1-12.0); Hematocrit 41.3 % (37.0-47.0); Hemoglobin 13.6 g/dL (12.2-16.2); Lymphocytes # 3.2 K/mm3 (0.7-4.5); Lymphocytes % 43.5 % (10-50); Mean Corpuscular Hemoglobin 29.9 pg (27.0-31.2); Mean Corpuscular Volume 90.7 fl (81-99); Mean Platelet Volume 8.8 fl (7.4-10.4); Monocytes # 0.5 K/mm3 (0.1-1.0); Monocytes % 6.9 % (1.7-9.3); Neutrophils # 3.3 K/mm3 (1.8-7.8); Platelet Count 218 K/mm3 (142-424); Red Blood Count 4.55 M/mm3 (4.20-5.40); Red Cell Distribution Width 14.1 % (11.5-17.5); White Blood Count 7.2 K/mm3 (4.8-10.8)
[2022-06-19 12:57] LABS: Anion Gap 5.8 mEq/L (5-15); Blood Urea Nitrogen 19 mg/dl (7-17); Calcium 9.2 mg/dl (8.4-10.2); Carbon Dioxide 35 mmol/L (22.0-30.0); Chloride 104 mmol/L (98-107); Creatinine Clearance Estimated 140 mL/min (50-200); Estimated Glomerular Filt Rate 75 ml/min (>60); GFR (African American) 91 ML/MIN (>60); Glucose 73 mg/dl (74-100); Potassium 3.8 mmoL/L (3.5-5.1); Sodium 141 mmol/L (136-145)
[2022-06-19 13:09] LABS: Troponin I < 0.01 ng/ml (0.00-0.034)
[2022-06-19 13:23] LABS: Microscopic, Urine URINE MICROSCOPIC (MICROSCOPIC)
[2022-06-19 13:25] LABS: Appearance,Urine CLEAR (Clear); Bilirubin,Urine Negative (Negative); Blood, Urine Negative (Negative); Color,Urine YELLOW (Yellow); Glucose,Urine (UA) Negative (Negative); Ketones,Urine Negative (Negative); Leukocyte Esterase,Urine Negative (Negative); Nitrate,Urine Negative (Negative); PH,Urine 5.5 (5.0-8.5); Protein,Urine Negative (Negative); Specific Gravity, Urine 1.025 (1.005-1.030); Urobilinogen,Urine 0.2 EU/dl (0.2)
[2022-06-19 13:35] LABS: WBC,Urine Occasional #/hpf (0-3)
[2022-06-19 13:36] LABS: Bacteria,Urine Trace /lpf; Squamous Epithelial Cell,Urine Occasional #/hpf (0-5)
--- NOTE | 2022-06-19 13:42 | PC.NURSE ---
ALICE BRADLEY TO PT SHE UP AMBULATORY IN HER ROOM , PT REQUEST TO TRY TO BE DISCHARGED SOON SO SHE CAN GO GET HER INJECTION IN ORTHO
--- NOTE | 2022-06-19 13:47 | PC.NURSE ---
FAMILY AT BS
--- NOTE | 2022-06-19 14:37 | PC.NURSE ---
PT STATES SHE FEELS MUCH BETTER NOW AND WOULD LIKE ANOTHER SANDWICH TO EAT
[2022-06-19 14:48] VITALS: BP 103/60; PULSE 67; RESP 17; TEMP 36.7; O2SAT 96
== END 2022-06-19 14:51 | disposition home or self-care (01) ==
PROVIDERS: Emergency Provider Emergency Medicine; PCP Family Medicine
DX: R07.89 Other chest pain (principal); R00.2 Palpitations; N39.0 Urinary tract infection, site not specified; M25.569 Pain in unspecified knee; R06.02 Shortness of breath; R42 Dizziness and giddiness; R53.1 Weakness; R20.2 Paresthesia of skin; R53.82 Chronic fatigue, unspecified; I10 Essential (primary) hypertension; I25.2 Old myocardial infarction; E78.5 Hyperlipidemia, unspecified; G89.29 Other chronic pain; M19.90 Unspecified osteoarthritis, unspecified site; G43.909 Migraine, unspecified, not intractable, without status migrainosus; G93.5 Compression of brain; Z79.1 Long term (current) use of non-steroidal anti-inflammatories (NSAID); Z79.51 Long term (current) use of inhaled steroids; Z88.0 Allergy status to penicillin; Z88.1 Allergy status to other antibiotic agents; Z88.3 Allergy status to other anti-infective agents; Z88.5 Allergy status to narcotic agent; Z91.018 Allergy to other foods; Z97.8 Presence of other specified devices; Z82.49 Family history of ischemic heart disease and other diseases of the circulatory system; Z83.3 Family history of diabetes mellitus; Z80.9 Family history of malignant neoplasm, unspecified; Z68.39 Body mass index [BMI] 39.0-39.9, adult
CPT/HCPCS: 71045; 80048; 81001; 84484; 85025; 93005; 96374; 99284

== ENCOUNTER 2022-07-09 11:06 | Emergency (ER) | payer OTHER, SELFPAY ==
[2022-07-09] VITALS (15 sets, daily range): BP systolic 101–148; BP diastolic 54–85; PULSE 54–74; RESP 14–16; TEMP 36.6–37.1; O2SAT 95–99; BMI 41.9
--- NOTE | 2022-07-09 11:00 | ECG_ITS ---
APPROVED REPORT Exam: Resting ECG HR:65 bpm ECG Measurements Heart Rate 65 AXES MT 174 P 45 QRSd 104 QRS 33 QT 366 T 48 QTc 377 Conclusion SINUS RHYTHM NORMAL ECG UNCONFIRMED REPORT Electronically signed by : Reji Spencer MD 07/10/2022 17:05:27
--- NOTE | 2022-07-09 11:11 | XR_ITS ---
FINAL REPORT CLINICAL HISTORY: chest pain COMPARISON: June 19, 2022 FINDINGS: A single portable view of the chest was obtained. The heart size and pulmonary vascularity are within normal limits. The mediastinum is within normal limits. There are worsening bibasilar pulmonary opacities. There are postoperative changes of the lower thoracic spine. IMPRESSION: Worsening bibasilar pulmonary opacities, favor atelectasis or pneumonia. Reviewed, Interpreted and Dictated by Eddie Frost III, MD Transcribed by Afia Rivera Authenticated and [facility]
--- NOTE | 2022-07-09 11:27 | PC.NURSE ---
LEONILA UMANZOR at for patient eval
--- NOTE | 2022-07-09 11:38 | CT_ITS ---
FINAL REPORT CLINICAL HISTORY: headache COMPARISON: 05/04/2019 FINDINGS: Axial images of the head were obtained without contrast. Coronal reformatted images were also obtained.This study was performed with techniques to keep radiation doses as low as reasonably achievable (ALARA). Individualized dose reduction techniques using automated exposure control or adjustment of mA and/or kV according to the patient's size were employed. There is no evidence of intracranial hemorrhage or mass. The ventricular size is within normal limits. There is no evidence of shift of the midline structures. No abnormal extra axial fluid collection is identified. No skull abnormality is seen on the bone window images. IMPRESSION: No acute intracranial abnormality. Reviewed, Interpreted and Dictated by Eddie Frost III, MD Transcribed by Ganesh Hernandez Authenticated and [facility]
[2022-07-09 11:39] LABS: Appearance,Urine CLEAR (Clear); Bilirubin,Urine Negative (Negative); Blood, Urine Negative (Negative); Color,Urine YELLOW (Yellow); Glucose,Urine (UA) Negative (Negative); Ketones,Urine Negative (Negative); Leukocyte Esterase,Urine Negative (Negative); Microscopic, Urine URINE MICROSCOPIC (MICROSCOPIC); Nitrate,Urine Negative (Negative); PH,Urine 7.5 (5.0-8.5); Protein,Urine Negative (Negative); Urobilinogen,Urine 0.2 EU/dl (0.2)
[2022-07-09 11:45] LABS: Basophils # 0.1 K/mm3 (0-0.2); Basophils % 1.2 % (0.1-2.0); Eosinophils # 0.2 K/mm3 (0.0-0.4); Eosinophils % 2.2 % (0.1-12.0); Hematocrit 42.2 % (37.0-47.0); Hemoglobin 13.6 g/dL (12.2-16.2); Lymphocytes # 2.7 K/mm3 (0.7-4.5); Lymphocytes % 30.2 % (10-50); Mean Corpuscular HGB Conc 32.2 g/dL (31.8-35.4); Mean Corpuscular Hemoglobin 29.7 pg (27.0-31.2); Mean Corpuscular Volume 92.3 fl (81-99); Monocytes # 0.5 K/mm3 (0.1-1.0); Monocytes % 5.7 % (1.7-9.3); Neutrophils # 5.5 K/mm3 (1.8-7.8); Neutrophils % 60.7 % (37.0-80.0); Platelet Count 215 K/mm3 (142-424); Red Blood Count 4.57 M/mm3 (4.20-5.40); Red Cell Distribution Width 14.5 % (11.5-17.5)
--- NOTE | 2022-07-09 11:47 | PC.NURSE ---
pt reports to desktop support technicianDia brown that she is unable to lay flat for her scan. Sada is aware and will medicate patient and see how she is feeling shortly to see if we can proceed with scan.
[2022-07-09 11:53] LABS: Chloride 100 mmol/L (98-107); Sodium 140 mmol/L (136-145)
[2022-07-09 11:54] LABS: Potassium 3.6 mmoL/L (3.5-5.1)
[2022-07-09 11:56] LABS: Alanine Aminotransferase 37 U/L (12-78); Albumin Level 4.4 g/dl (3.5-5.0); Alkaline Phosphatase 77 U/L (38-126); Anion Gap 8.6 mEq/L (5-15); Aspartate Amino Transferase 38 U/L (14-36); Bilirubin,Direct 0.1 mg/dl (0.0-0.4); Bilirubin,Indirect 0.1 mg/dL (0.0-0.9); Bilirubin,Total 0.2 mg/dl (0.2-1.3); Bilirubin,Unconjugated 0.1 mg/dL (0.0-1.1); Blood Urea Nitrogen 23 mg/dl (7-17); Calcium 9.7 mg/dl (8.4-10.2); Carbon Dioxide 35 mmol/L (22.0-30.0); Creatinine Clearance Estimated 84 mL/min (50-200); Estimated Glomerular Filt Rate 88 ml/min (>60); GFR (African American) 106 ML/MIN (>60); Glucose 97 mg/dl (74-100); Total Protein,Serum 7.3 g/dl (6.3-8.2)
[2022-07-09 11:57] LABS: Magnesium 1.8 mg/dl (1.6-2.3)
[2022-07-09 11:59] LABS: Bacteria,Urine Trace /lpf; Squamous Epithelial Cell,Urine Occasional #/hpf (0-5)
[2022-07-09 12:11] LABS: Troponin I < 0.01 ng/ml (0.00-0.034)
[2022-07-09 12:14] LABS: T4 (Thyroxine) 12.6 ug/dl (5.53-11.0)
[2022-07-09 12:27] LABS: Thyroid Stimulating Hormone 1.24 uIU/mL (0.465-4.68)
--- NOTE | 2022-07-09 12:40 | HMH.EDGENADL ---
ED Disposition Clinical Impression: Lightheadedness HTN (hypertension) Qualifiers: Hypertension type: unspecified Qualified Code(s): I10 - Essential (primary) hypertension Migraine Qualifiers: Migraine type: chronic without aura Status migrainosus presence: without status migrainosus Intractability: not intractable Qualified Code(s): G43.709 - Chronic migraine without aura, not intractable, without status migrainosus Disposition: Home, Self-Care Condition on Discharge: Good Instructions: DI for Migraine, DI for Atypical Chest Pain Additional Instructions: You were evaluated in the emergency department today. Please follow-up with your primary care provider over the next 48 hours. Return to the emergency department for any new or worsening symptoms. Referrals: Gayla Galan MD [Primary Care Provider] - - Critical Care Critical Care Time: No Attestation: On 07/09/22, the high probability of a clinically significant, sudden or life threatening deterioration of the following system(s) required my full and direct attention, intervention and personal management. The time I documented below is in addition to time spent performing reported procedures but includes the following listed in this critical care notation. Medical Decision Making - George Inquiry Pt receiving controlled substance: No Vital Signs: 07/09/22 11:08 07/09/22 12:06 07/09/22 12:21 Temperature 98.8 F Temperature Source Oral Pulse Rate 62 55 L Pulse Rate [Radial] 72 Respiratory Rate 16 14 Blood Pressure 123/67 101/59 L Blood Pressure [Right Arm] 148/85 H Blood Pressure Mean 82 73 Blood Pressure Mean [Right Arm] 106 Blood Pressure Position Blood Pressure Position [Right Arm] Sitting 02 Sat by Pulse Oximetry 98 99 97 Oxygen Delivery Method Room Air 07/09/22 12:36 07/09/22 12:51 07/09/22 13:06 Temperature Temperature Source Pulse Rate 54 L 58 L 59 L Pulse Rate [Radial] Respiratory Rate Blood Pressure 110/54 L 110/58 L 107/59 L Blood Pressure [Right Arm] Blood Pressure Mean 75 75 68 Blood Pressure Mean [Right Arm] Blood Pressure Position Blood Pressure Position [Right Arm] 02 Sat by Pulse Oximetry 98 96 97 Oxygen Delivery Method Room Air 07/09/22 13:20 07/09/22 13:36 07/09/22 14:06 Temperature Temperature Source Pulse Rate 61 55 L 61 Pulse Rate [Radial] Respiratory Rate 14 Blood Pressure 121/67 105/54 L 122/74 Blood Pressure [Right Arm] Blood Pressure Mean 79 71 90 Blood Pressure Mean [Right Arm] Blood Pressure Position Blood Pressure Position [Right Arm] 02 Sat by Pulse Oximetry 98 97 98 Oxygen Delivery Method Room Air 07/09/22 14:21 07/09/22 14:36 07/09/22 14:51 Temperature Temperature Source Pulse Rate 61 60 62 Pulse Rate [Radial] Respiratory Rate Blood Pressure 129/74 112/65 125/68 Blood Pressure [Right Arm] Blood Pressure Mean 98 80 87 Blood Pressure Mean [Right Arm] Blood Pressure Position Blood Pressure Position [Right Arm] 02 Sat by Pulse Oximetry 95 96 95 Oxygen Delivery Method 07/09/22 15:06 07/09/22 15:21 07/09/22 16:06 Temperature 98 F Temperature Source Oral Pulse Rate 62 60 74 Pulse Rate [Radial] Respiratory Rate 16 Blood Pressure 117/73 136/68 133/74 Blood Pressure [Right Arm] Blood Pressure Mean 88 90 Blood Pressure Mean [Right Arm] Blood Pressure Position Sitting Blood Pressure Position [Right Arm] 02 Sat by Pulse Oximetry 98 97 Oxygen Delivery Method Room Air - Lab Data Lab Results 07/09/22 11:20: Urine Color Yellow, Urine Appearance Clear, Urine pH 7.5, Ur Specific [place] 1.010, Urine Protein Negative, Urine Glucose (UA) Negative, Urine Ketones Negative, Urine Blood Negative, Urine Nitrate Negative, Urine Bilirubin Negative, Urine Urobilinogen 0.2, Ur Leukocyte Esterase Negative, Urine RBC None, Urine WBC None, Ur Squamous Epith Cells Occasional, Urine Bact
--- NOTE | 2022-07-09 13:00 | PC.NURSE ---
up to bathroom pt with unsteady gait. assisted with ambulation.
--- NOTE | 2022-07-09 14:04 | PC.NURSE ---
pt returned from CT scan, lying on ED stretcher resting. Call light within reach, pt is aware that we are waiting on imaging results.
--- NOTE | 2022-07-09 14:30 | PC.NURSE ---
pt updated on plan of care
[2022-07-09 15:12] LABS: Troponin I < 0.01 ng/ml (0.00-0.034)
== END 2022-07-09 16:07 | disposition home or self-care (01) ==
PROVIDERS: Emergency Provider Emergency Medicine; PCP Family Medicine
DX: R07.9 Chest pain, unspecified (principal); R00.2 Palpitations; R42 Dizziness and giddiness; R53.1 Weakness; I25.10 Atherosclerotic heart disease of native coronary artery without angina pectoris; I25.2 Old myocardial infarction; E78.5 Hyperlipidemia, unspecified; M19.90 Unspecified osteoarthritis, unspecified site; G93.5 Compression of brain; G43.709 Chronic migraine without aura, not intractable, without status migrainosus; N95.1 Menopausal and female climacteric states; R09.02 Hypoxemia; J98.4 Other disorders of lung; J84.9 Interstitial pulmonary disease, unspecified; J45.30 Mild persistent asthma, uncomplicated; Z79.1 Long term (current) use of non-steroidal anti-inflammatories (NSAID); Z79.51 Long term (current) use of inhaled steroids; Z79.899 Other long term (current) drug therapy; Z86.16 Personal history of COVID-19; Z82.49 Family history of ischemic heart disease and other diseases of the circulatory system; Z82.5 Family history of asthma and other chronic lower respiratory diseases; Z88.0 Allergy status to penicillin; Z88.2 Allergy status to sulfonamides; Z88.8 Allergy status to other drugs, medicaments and biological substances; Z80.3 Family history of malignant neoplasm of breast; Z80.41 Family history of malignant neoplasm of ovary; Z85.820 Personal history of malignant melanoma of skin; Z85.118 Personal history of other malignant neoplasm of bronchus and lung
CPT/HCPCS: 70450; 71045; 80048; 80076; 81001; 83735; 84436; 84443; 84484; 85025; 93005; 96361; 96374; 96375; 99285

== ENCOUNTER 2022-07-15 08:00 | Emergency (ER) | payer OTHER, SELFPAY ==
[2022-07-15 09:33] VITALS: BP 120/68; PULSE 86; RESP 16; TEMP 36.8; O2SAT 98; BMI 38.5
[2022-07-15 09:37] VITALS: BP 120/68; PULSE 86; RESP 16; TEMP 36.8
== END 2022-07-15 09:39 | disposition home or self-care (01) ==
LOC: UTC 09:21
PROVIDERS: Emergency Provider Nurse Practitioner; PCP Family Medicine
DX: M62.838 Other muscle spasm (principal)
CPT/HCPCS: 96372; 99212; G0463

== ENCOUNTER → 2022-07-16 15:08 | Outpatient (CLI) | payer OTHER, SELFPAY ==
[2022-07-16 16:20] VITALS: PULSE 60; PULSE 61
[2022-07-16 19:26] LABS: Basophils # 0.1 K/mm3 (0-0.2); Basophils % 0.7 % (0.1-2.0); Eosinophils % 0.3 % (0.1-12.0); Hematocrit 44.3 % (37.0-47.0); Lymphocytes # 2.7 K/mm3 (0.7-4.5); Lymphocytes % 29.7 % (10-50); Mean Corpuscular HGB Conc 31.7 g/dL (31.8-35.4); Mean Corpuscular Hemoglobin 30.7 pg (27.0-31.2); Mean Corpuscular Volume 96.7 fl (81-99); Mean Platelet Volume 8.8 fl (7.4-10.4); Monocytes # 0.7 K/mm3 (0.1-1.0); Monocytes % 7.6 % (1.7-9.3); Neutrophils # 5.7 K/mm3 (1.8-7.8); Neutrophils % 61.7 % (37.0-80.0); Platelet Count 259 K/mm3 (142-424); Red Blood Count 4.58 M/mm3 (4.20-5.40); Red Cell Distribution Width 14.3 % (11.5-17.5); White Blood Count 9.2 K/mm3 (4.8-10.8)
[2022-07-16 20:03] LABS: C-Reactive Protein 0.7 mg/L (0-4)
[2022-07-23 10:57] LABS: D001-IgE D pteronyssinus <0.10 kU/L (Class 0); D002-IgE D farinae <0.10 kU/L (Class 0); E001-IgE Cat Dander <0.10 kU/L (Class 0); E005-IgE Dog Dander <0.10 kU/L (Class 0); E072-IgE Mouse Urine <0.10 kU/L (Class 0); G002-IgE Bermuda Grass <0.10 kU/L (Class 0); G006-IgE Timothy Grass <0.10 kU/L (Class 0); I006-IgE Cockroach, German <0.10 kU/L (Class 0); Immunoglobulin E, Total 5 IU/mL (6-495); M001-IgE Penicillium chrysogen <0.10 kU/L (Class 0); M002-IgE Cladosporium herbarum <0.10 kU/L (Class 0); M003-IgE Aspergillus fumigatus <0.10 kU/L (Class 0); M006-IgE Alternaria alternata <0.10 kU/L (Class 0); T001-IgE Maple/Box Elder <0.10 kU/L (Class 0); T003-IgE Common Silver Birch <0.10 kU/L (Class 0); T006-IgE Cedar, Mountain <0.10 kU/L (Class 0); T007-IgE Oak, White <0.10 kU/L (Class 0); T008-IgE Elm, American <0.10 kU/L (Class 0); T010-IgE Walnut <0.10 kU/L (Class 0); T011-IgE Maple Leaf Sycamore <0.10 kU/L (Class 0); T014-IgE Cottonwood <0.10 kU/L (Class 0); T015-IgE Ash, White <0.10 kU/L (Class 0); T022-IgE Pecan, Hickory <0.10 kU/L (Class 0); T070-IgE White Mulberry <0.10 kU/L (Class 0); W001-IgE Ragweed, Short <0.10 kU/L (Class 0); W011-IgE Thistle, Russian <0.10 kU/L (Class 0); W014-IgE Pigweed, Common <0.10 kU/L (Class 0); W018-IgE Sheep Sorrel <0.10 kU/L (Class 0)
== END ==
PROVIDERS: PCP Family Medicine; Visit Provider Internal Medicine Pulmonary Disease
DX: J45.909 Unspecified asthma, uncomplicated (principal); R06.00 Dyspnea, unspecified
CPT/HCPCS: 36415; 82785; 85025; 86003; 86140; 94060; 94618; 94640; 94727; 94729

== ENCOUNTER → 2022-07-17 14:05 | Outpatient (CLI) | payer OTHER, SELFPAY ==
--- NOTE | 2022-07-17 14:06 | US_ITS ---
FINAL REPORT CLINICAL HISTORY: neck pain and swelling on the right FINDINGS: Sonographic images were obtained of the right neck. There is asymmetrical prominent right submandibular gland. There is no fluid collection, no mass and no adenopathy. IMPRESSION: Asymmetrical prominent right submandibular gland. No fluid collection mass or adenopathy. Infused neck CT could better evaluate if clinically desired. Reviewed, Interpreted and Dictated by Edgardo Schulte MD Transcribed by Penny Gandhi Authenticated and [facility]
--- NOTE | 2022-07-17 14:06 | US_ITS ---
PROCEDURE INFORMATION: Exam: US Right Breast, Complete Exam date and time: 07/17/2022 3:08 PM Age: 51 years old Clinical indication: Right breast pain. TECHNIQUE: Imaging protocol: Complete ultrasound of all four quadrants of the Right breast and the retroareolar regions, including ultrasound of the axilla when performed. COMPARISON: MG MM DIG SCREENING MAMM BI W/CAD 01/09/2022 1:11 PM FINDINGS: Breast: Right sonography, all 4 quadrants, retroareolar and axilla. No cystic or solid or non masslike findings demonstrated. Sonographically unremarkable partly visualized right axillary lymph node. IMPRESSION: No sonographic evidence of malignancy. Further evaluation of a painful abnormality should be based on clinical grounds regardless of radiographic findings or lack thereof. Annual mammographic screening, due December 2022, is recommended unless otherwise clinically indicated. ASSESSMENT: Assessment: BI-RADS Category 1: Negative
--- NOTE | 2022-07-17 14:06 | US_ITS ---
FINAL REPORT CLINICAL HISTORY: pelvic pain FINDINGS: Transvaginal sonographic images of the pelvis were obtained. The uterus measures 8.1 x 5.3 x 3.6 cm. The endometrium measures 8 mm which is abnormally thickened in a postmenopausal patient. There are multiple heterogeneous hypoechoic masses in the myometrium consistent with fibroids measuring up to 2.2 cm. The right ovary measures 1.5 cm in length and left ovary measures 2.2 cm in length. Normal blood flow seen to the ovaries. There is a 1.5 cm right ovarian cyst. There is no evidence of free fluid. IMPRESSION: Abnormal thickening of the endometrium for a post menopausal patient. Gynecologic evaluation recommended. Multiple small fibroids measuring up to 2.2 cm. Reviewed, Interpreted and Dictated by Edgardo Schulte MD Transcribed by Penny Gandhi Authenticated and [facility]
--- NOTE | 2022-07-17 14:06 | US_ITS ---
PROCEDURE INFORMATION: Exam: US Left Breast, Complete Exam date and time: 07/17/2022 3:16 PM Age: 51 years old Clinical indication: Concern for left breast pain. TECHNIQUE: Imaging protocol: Complete ultrasound of all four quadrants of the Left breast and the retroareolar regions, including ultrasound of the axilla when performed. COMPARISON: MG MM DIG SCREENING MAMM BI W/CAD 01/09/2022 1:11 PM FINDINGS: Breast: Left sonography, all 4 quadrants, retroareolar and axilla demonstrate no cystic or solid masses. Sonographically unremarkable partly imaged left axillary lymph node. IMPRESSION: No sonographic evidence of malignancy. Further evaluation of a painful abnormality should be based on clinical grounds regardless of radiographic findings or lack thereof. Annual mammographic screening, due December 2022, is recommended unless otherwise clinically indicated. ASSESSMENT: BI-RADS Category 1: Negative
== END ==
PROVIDERS: PCP Family Medicine; Visit Provider Obstetrics & Gynecology
DX: M54.2 Cervicalgia (principal); R22.1 Localized swelling, mass and lump, neck; N64.4 Mastodynia; R10.2 Pelvic and perineal pain
CPT/HCPCS: 76536; 76641; 76830

== ENCOUNTER → 2022-07-21 14:19 | Day surgery (SDC) | payer OTHER, SELFPAY ==
[2022-07-21 14:23] VITALS: BP 136/78; PULSE 78; RESP 20; O2SAT 98; BMI 41.4
[2022-07-21 14:43] VITALS: BP 136/78; PULSE 78; RESP 20
--- NOTE | 2022-07-21 14:49 | EXP.PAIN.PRO ---
Procedure Date: 07/21/22 Time: 14:50 Anesthesiologist:: Otf Sherman CRNA Complications:: None Pre-procedure Diagnosis:: Degenerative disc disease lumbar spine multilevels. Lumbar radiculopathy symptoms Post-procedure Diagnosis:: Same. Indications for Procedure:: This patient is a very pleasant 51-year-old female who comes today for intrathecal pain pump refill and interrogation. She is doing quite well on her current rate. She does not complain of any side effects. She does not complain of any pain. She is currently being managed with Dilaudid 20 mg/mL at a rate of 3.75 mg/day. Procedure Details:: Details of the procedure were explained to the patient. The patient taken a procedure room placed in the sitting position. The area over the pump was cleaned using chlorhexidine as a cleansing solution. The pump was accessed with ease using a 22-gauge inch and a half needle. 4 cc of medicine was removed and discarded appropriately. The pump was then filled with 20 cc of Dilaudid 20 mg/mL at 3.75 mg/day. Plan and Disposition:: Patient was discharged without incident
== END | disposition home or self-care (01) ==
PROVIDERS: PCP Family Medicine; Visit Provider Nurse Anesthetist, Certified Registered
DX: M51.16 Intervertebral disc disorders with radiculopathy, lumbar region (principal)
CPT/HCPCS: 95991

== ENCOUNTER → 2022-07-30 13:58 | Outpatient (CLI) | payer OTHER, SELFPAY ==
--- NOTE | 2022-07-30 14:08 | US_ITS ---
FINAL REPORT TECHNIQUE: Ultrasound images of the thyroid were obtained. CLINICAL HISTORY: THYROID ENLARGEMENT FINDINGS: The right lobe of the thyroid measures 2.7 x 0.5 x 1.0 cm. It is normal in echogenicity. There is a solid, isoechoic nodule in the right lobe measuring 8.8 x 5 mm, TI-RADS category 3. The left lobe of the thyroid measures 3.0 x 0.8 x 1.1 cm. It is normal in echogenicity. IMPRESSION: Single, solid, isoechoic nodule in the right thyroid lobe, TI-RADS category 3. No follow-up needed. Reviewed, Interpreted and Dictated by dEdie Frost III, MD Transcribed by Ani Henriquez Authenticated and [facility]
== END ==
PROVIDERS: PCP Family Medicine; Visit Provider Family Medicine
DX: E04.9 Nontoxic goiter, unspecified (principal)
CPT/HCPCS: 76536

== ENCOUNTER → 2022-08-06 11:57 | Outpatient (CLI) | payer OTHER, SELFPAY | PROVIDERS: PCP Family Medicine; Visit Provider Family Medicine | DX: R53.82 Chronic fatigue, unspecified (principal) | CPT/HCPCS: 36415; 82533 ==

== ENCOUNTER → 2022-08-17 10:06 | Outpatient (POV) | payer OTHER, SELFPAY ==
--- NOTE | 2022-08-17 10:16 | EXP.PAIN.SOA ---
[facility] Pain Management SOAP Note Subjective:: Patient is a pleasant 52-year-old female who presents today via telehealth visit for follow-up and medication refill. Patient is currently at home during today's telehealth visit. We are currently treating the patient for degenerative disc disease of lumbar and cervical spine multilevels with lumbar and cervical radiculopathy symptoms. Patient rates her pain today an 8 out of 10. She states her pain is throughout her upper and lower spine that radiates into her bilateral lower extremities. Patient does have significant history of multiple brain surgeries, cervical fusion along with removal of her C1-C7 vertebrae. She also has spinal stenosis throughout her spine and has had spina bifida as a child. Patient is currently managed with a intrathecal pain pump of Dilaudid 20 mg/mL at a rate of 3.75 mg/day. Patient denies any side effects from this medication. She states this medication does help manage her pain. Patient does also manage her pain with tramadol 50 mg 2 times daily. Patient denies any side effects from this medication. She states this medication helps in combination with her pump medication to provide better improvement of her pain symptoms. She is requesting a refill of her tramadol 50 mg at today's visit. Patient states she uses this pain for breakthrough times. Patient is also managed with gabapentin 400 mg 3 times a day. Patient's George is [phone]. It has been reviewed and appropriate. Review of Systems: General: No recent weight changes, no fever, no sleep disturbances Respiratory: No cough, no shortness of air, no recurring pulmonary infections Cardiovascular/peripheral vascular: No chest pain, no palpitations, no edema, no shortness of breath Gastrointestinal: No new onset incontinence, normal bowel movements reported Genitourinary: No new onset incontinence Musculoskeletal: Chronic generalized pain, upper/lower back pain Psychiatric: [Normal mood/affect] Neurological: [Denies weakness in extremities], [denies balance issues] Objective:: General: Alert and oriented x3, pleasant and cooperative Lungs: Patient is able to say complete sentences without dyspnea Neurological: Speech clear Assessment:: Degenerative disc disease of cervical and lumbar spine multilevels with cervical and lumbar radiculopathy symptoms Plan:: Patient is experiencing chronic, worsening, generalized pain along her spine during today's visit. Patient's telehealth visit lasted roughly 10 minutes. I will refill the patient's tramadol 50 mg twice daily and provide a 1 month supply of this medication. I have counseled the patient that she may need a pump adjustment to provide better improvement of her symptoms. I will also refill the patient's topical pennsaid. We will schedule the patient for a in person office visit for a pump adjustment. Patient will return to clinic for a intrathecal pump adjustment and reevaluation of her symptoms. Patient has been advised of risks of oversedation with the prescribed medication. Narcan has been offered to the patient in the event of oversedation. Patient has been advised that a family member should also be educated regarding administration of Narcan. Patient has been instructed to contact the clinic with any concerns before the next appointment. Dr. Boyce has reviewed this note and agrees with this plan of care. This note was dictated using voice recognition software and make contain errors or omissions. -- It Is medically necessary for this patient to continue to have their intrathecal pump refilled at regular intervals. This patient had an intrathecal pain pump implanted after meeting criteria of chronic intractable pain for greater than 3 months and failing conservative treatments. Patient has committed and been compliant to the treatment plan and all planned follow up care. Since implantation of the intrathecal pain pump, the patient has had decreased pain and been
== END | disposition home or self-care (01) ==
PROVIDERS: Visit Provider Nurse Practitioner Family
DX: M50.10 Cervical disc disorder with radiculopathy, unspecified cervical region (principal)
CPT/HCPCS: 99212; G0463

== ENCOUNTER 2022-08-19 04:44 | Emergency (ER) | payer OTHER, SELFPAY ==
[2022-08-19 04:45] VITALS: BP 138/83; PULSE 65; RESP 18; TEMP 37; O2SAT 98; BMI 41.5
--- NOTE | 2022-08-19 05:39 | HMH.EDNVD ---
Discharge Plan Disposition Patient Disposition: Home, Self-Care Prescriptions Prescriptions: No Action levothyroxine 137 mcg tablet 137 mcg PO DAILY diclofenac sodium 20 mg/gram /actuation(2 %) solution in metered-dose pump 2 pump TP NEEDED PRN (Reason: unknown) calcium carbonate [Calcium 500] 500 mg calcium (1,250 mg) tablet,chewable 1,000 mg PO BID fenofibrate nanocrystallized 145 mg tablet 145 mg PO DAILY doxycycline monohydrate 100 mg capsule 100 mg PO DAILY dexlansoprazole 60 mg capsule,biphase delayed releas 60 mg PO DAILYP PRN (Reason: stomach) Nurtec ODT 75 mg tablet,disintegrating 75 mg PO DAILY Label Comments: DISSOLVE 1 TABLET BY MOUTH AT THE ONSET of a HEADACHE DIRECTED gabapentin 400 mg capsule 400 mg PO TID PRN lorazepam 2 mg tablet 2 mg PO Q8H PRN Label Comments: TAKE 1/2 TO 1 TABLET BY MOUTH EVERY 8 HOURS NEEDED FOR ANXIETY baclofen 10 mg tablet 10 mg PO DAILY PRN Advair HFA 230-21 mcg/actuation HFA aerosol inhaler 1 puff inhalation BID 90 Days Qty: 12 3RF hydrocortisone-pramoxine 1-1 % cream 1 applic RC QID PRN (Reason: hemorrhoids) Qty: 30 1RF valsartan 80 mg tablet 80 mg PO BID Qty: 60 2RF albuterol sulfate 90 mcg/actuation HFA aerosol inhaler 2 inh IH Q6H PRN (Reason: shortness of breath or wheezing) 90 Days Qty: 8.5 3RF bisoprolol fumarate 5 mg tablet 5 mg PO BID Qty: 180 3RF ipratropium-albuterol 0.5 mg-3 mg(2.5 mg base)/3 mL solution for nebulization 3 ml IH QID PRN (Reason: shortness of breath or wheezing) 90 Days Qty: 270 3RF doxycycline monohydrate 100 MG tablet 100 mg PO BID bumetanide 1 MG tablet See Rx Instructions .Route .COMPLEX Rx Instructions: TAKE ONE TABLET BY MOUTH DAILY NEEDED FOR EDEMA tramadol 50 mg tablet 50 mg PO BID PRN (Reason: .) Qty: 60 0RF bupivacaine (PF) 2.5 MG/ML solution 1.3 mg IT CONT Rx Instructions: medication delivered via intrathecal pain pump. actual concentration is 5mg/ml. total volume of pump is 20ml hydromorphone (PF) 1 MG/ML syringe 2.6 mg IT CONT Rx Instructions: medication delivered via intrathecal pain pump. actual concentration 10mg/ml. total volume of pump is 20ml nitroglycerin 0.4 MG tablet, sublingual 0.4 mg SL Q5M Rx Instructions: do not exceed 3 doses per episode tizanidine 4 MG tablet 4 mg PO TID Referrals Follow up/Referrals: Gayla Galan MD [Primary Care Provider] - See instructions Clinical Impressions Clinical Impression: Dyspnea Instructions Patient Instructions: DI for Nausea -- Adult Discharge ED Provider: Geovani Ennis Nausea/Vomiting/Diarrhea HPI General Chief complaint: Nausea/Vomiting/Diarrhea Stated complaint: throat swelling, soa, nausea, trouble swallowing Time Seen by Provider: 08/19/22 05:39 Mode of Arrival: Ambulatory Source of Information: Patient and Medical Record Limitations: No Limitations Description of Symptoms (Recalled from ER Triage Doc. by RN): pt complains of being swollen all over and her dr told her to come to the er cause she cant get in. 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
--- NOTE | 2022-08-19 05:44 | CT_ITS ---
PROCEDURE INFORMATION: Exam: CT Abdomen And Pelvis Without Contrast Exam date and time: 08/19/2022 6:41 AM Age: 52 years old Clinical indication: Nausea and vomiting; Patient HX: Nausea, vomiting TECHNIQUE: Imaging protocol: Computed tomography of the abdomen and pelvis without contrast. Radiation optimization: All CT scans at this facility use at least one of these dose optimization techniques: automated exposure control; mA and/or kV adjustment per patient size (includes targeted exams where dose is matched to clinical indication); or iterative reconstruction. COMPARISON: ABDPELW CT ABD PELVIS W/ CONTRAST 02/05/2017 10:35 AM FINDINGS: Tubes, catheters and devices: Spinal stimulator. Lungs: [id number] linear atelectasis/fibrosis in the lung bases. Few punctate calcified granulomata. Liver: Punctate calcified hepatic granulomata. Slightly nodular liver contour; question cirrhosis. Gallbladder and bile ducts: Cholecystectomy. Pancreas: Normal. No ductal dilation. Spleen: Punctate calcified splenic granulomata. Adrenal glands: No mass. Kidneys and ureters: Punctate nonobstructive renal calculi bilaterally. No hydronephrosis. Stomach and bowel: No obstruction. Appendix: No evidence of appendicitis. Intraperitoneal space: No free air. No significant fluid collection. Vasculature: Minimal vascular calcifications. Lymph nodes: No enlarged lymph nodes. Urinary bladder: Unremarkable as visualized. Reproductive: Bilateral tubal ligation. Bones/joints: No acute fracture. Soft tissues: Unremarkable. IMPRESSION: 1. No evidence of an acute intra-abdominal process. 2. Punctate nonobstructive renal calculi bilaterally. No hydronephrosis. 3. Slightly nodular liver contour; question cirrhosis. 4. Other findings as detailed in the body of the report.
[2022-08-19 05:54] LABS: Microscopic, Urine URINE MICROSCOPIC (MICROSCOPIC)
[2022-08-19 05:57] LABS: Appearance,Urine CLEAR (Clear); Bilirubin,Urine Negative (Negative); Blood, Urine Negative (Negative); Color,Urine YELLOW (Yellow); Glucose,Urine (UA) Negative (Negative); Ketones,Urine Negative (Negative); Leukocyte Esterase,Urine Negative (Negative); Nitrate,Urine Negative (Negative); Protein,Urine Negative (Negative); Specific Gravity, Urine 1.015 (1.005-1.030); Urobilinogen,Urine 0.2 EU/dl (0.2)
[2022-08-19 05:58] LABS: Basophils # 0.1 K/mm3 (0-0.2); Basophils % 1.7 % (0.1-2.0); Eosinophils # 0.1 K/mm3 (0.0-0.4); Eosinophils % 1.8 % (0.1-12.0); Hematocrit 44.4 % (37.0-47.0); Hemoglobin 14.1 g/dL (12.2-16.2); Lymphocytes # 2.4 K/mm3 (0.7-4.5); Lymphocytes % 38.9 % (10-50); Mean Corpuscular HGB Conc 31.7 g/dL (31.8-35.4); Mean Corpuscular Hemoglobin 29.8 pg (27.0-31.2); Mean Platelet Volume 9.9 fl (7.4-10.4); Monocytes # 0.4 K/mm3 (0.1-1.0); Monocytes % 6.3 % (1.7-9.3); Neutrophils # 3.1 K/mm3 (1.8-7.8); Neutrophils % 51.3 % (37.0-80.0); Platelet Count 225 K/mm3 (142-424); Red Blood Count 4.72 M/mm3 (4.20-5.40); Red Cell Distribution Width 14.7 % (11.5-17.5)
[2022-08-19 06:14] LABS: Bacteria,Urine Trace /lpf; WBC,Urine Occasional #/hpf (0-3)
[2022-08-19 06:50] LABS: Alanine Aminotransferase 33 U/L (12-78); Albumin Level 4.4 g/dl (3.5-5.0); Albumin/Globulin Ratio 1.5 (1.1-1.8); Alkaline Phosphatase 56 U/L (38-126); Anion Gap 13.1 mEq/L (5-15); Aspartate Amino Transferase 41 U/L (14-36); Blood Urea Nitrogen 26 mg/dl (7-17); Calcium 9.8 mg/dl (8.4-10.2); Carbon Dioxide 32 mmol/L (22.0-30.0); Chloride 99 mmol/L (98-107); Creatinine Clearance Estimated 83 mL/min (50-200); Estimated Glomerular Filt Rate 87 ml/min (>60); GFR (African American) 106 ML/MIN (>60); Globulin 2.9 g/dL (1.3-3.2); Glucose 92 mg/dl (74-100); Potassium 4.1 mmoL/L (3.5-5.1); Sodium 140 mmol/L (136-145); Total Protein,Serum 7.3 g/dl (6.3-8.2)
[2022-08-19 06:55] LABS: Bilirubin,Total < 0.1 mg/dl (0.2-1.3)
[2022-08-19 07:04] LABS: Troponin I < 0.01 ng/ml (0.00-0.034)
[2022-08-19 08:06] VITALS: BP 136/79; PULSE 60; RESP 18; TEMP 36.7; O2SAT 98
== END 2022-08-19 08:10 | disposition home or self-care (01) ==
PROVIDERS: Emergency Provider Emergency Medicine; PCP Family Medicine
DX: R06.00 Dyspnea, unspecified (principal); Z79.899 Other long term (current) drug therapy; Z88.0 Allergy status to penicillin; Z88.1 Allergy status to other antibiotic agents; Z88.8 Allergy status to other drugs, medicaments and biological substances; I48.91 Unspecified atrial fibrillation; J84.9 Interstitial pulmonary disease, unspecified; E78.5 Hyperlipidemia, unspecified; I10 Essential (primary) hypertension; R00.2 Palpitations; E66.01 Morbid (severe) obesity due to excess calories; Z68.41 Body mass index [BMI] 40.0-44.9, adult
CPT/HCPCS: 74176; 80053; 81001; 84484; 85025; 96372; 96374; 96375; 99284

== ENCOUNTER → 2022-08-29 11:45 | Outpatient (CLI) | payer OTHER, SELFPAY ==
[2022-08-29 13:16] LABS: Basophils # 0.1 K/mm3 (0-0.2); Basophils % 1.1 % (0.1-2.0); Eosinophils # 0.1 K/mm3 (0.0-0.4); Eosinophils % 2.5 % (0.1-12.0); Hematocrit 40.6 % (37.0-47.0); Hemoglobin 12.8 g/dL (12.2-16.2); Lymphocytes # 2.3 K/mm3 (0.7-4.5); Lymphocytes % 41.1 % (10-50); Mean Corpuscular HGB Conc 31.5 g/dL (31.8-35.4); Mean Corpuscular Hemoglobin 29.7 pg (27.0-31.2); Mean Corpuscular Volume 94.4 fl (81-99); Mean Platelet Volume 9.9 fl (7.4-10.4); Monocytes # 0.3 K/mm3 (0.1-1.0); Neutrophils # 2.7 K/mm3 (1.8-7.8); Neutrophils % 49.2 % (37.0-80.0); Platelet Count 224 K/mm3 (142-424); Red Cell Distribution Width 14.6 % (11.5-17.5); White Blood Count 5.5 K/mm3 (4.8-10.8)
[2022-08-29 13:29] LABS: Alanine Aminotransferase 23 U/L (12-78); Albumin/Globulin Ratio 1.6 (1.1-1.8); Alkaline Phosphatase 68 U/L (38-126); Anion Gap 12.6 mEq/L (5-15); Aspartate Amino Transferase 30 U/L (14-36); Bilirubin,Total 0.2 mg/dl (0.2-1.3); Blood Urea Nitrogen 17 mg/dl (7-17); Carbon Dioxide 34 mmol/L (22.0-30.0); Chloride 101 mmol/L (98-107); Estimated Glomerular Filt Rate 87 ml/min (>60); GFR (African American) 106 ML/MIN (>60); Globulin 2.5 g/dL (1.3-3.2); Glucose 77 mg/dl (74-100); Potassium 4.6 mmoL/L (3.5-5.1); Sodium 143 mmol/L (136-145); Total Protein,Serum 6.5 g/dl (6.3-8.2)
[2022-08-29 13:46] LABS: HCG,Quantitative 5 mIU/ml (0-5.42)
== END ==
PROVIDERS: PCP Family Medicine; Visit Provider Obstetrics & Gynecology
DX: Z01.812 Encounter for preprocedural laboratory examination (principal); Z20.822 Contact with and (suspected) exposure to COVID-19; R93.89 Abnormal findings on diagnostic imaging of other specified body structures; R10.2 Pelvic and perineal pain; D25.9 Leiomyoma of uterus, unspecified; Z80.41 Family history of malignant neoplasm of ovary; Z80.3 Family history of malignant neoplasm of breast
CPT/HCPCS: 36415; 80053; 84702; 85025; C9803; U0003; U0005

== ENCOUNTER 2022-08-31 06:00 | Day surgery (SDC) | payer OTHER, SELFPAY ==
[2022-08-27 10:10] VITALS: BMI 34.9
[2022-08-31] VITALS (10 sets, daily range): BP systolic 121–149; BP diastolic 71–97; PULSE 61–76; RESP 16–20; TEMP 36.2–37.7; O2SAT 92–99
[2022-08-31 07:20] LABS: HCG,Quantitative 5 mIU/ml (0-5.42)
--- NOTE | 2022-08-31 07:25 | EXP.ANES.CKL ---
[facility] Medical History Abnormal computerized axial tomography of chest Anxiety Daytime somnolence Dyspnea on exertion Edema Family history of asthma Family history of atrial fibrillation Follow-up exam Gastroparesis History of 2019 novel coronavirus disease (COVID-19) History of environmental allergies HLD (hyperlipidemia) HTN (hypertension) ILD (interstitial lung disease) Implantable intrathecal infusion pump present Moderate persistent asthma Morbid obesity due to excess calories Nocturnal hypoxemia Palpitations Pelvic pressure in female Thickened endometrium Surgical History H/O brain surgery H/O myomectomy History of cardiac cath History of section History of colonoscopy History of esophagogastroduodenoscopy (EGD) History of tubal ligation Hx of cholecystectomy Status post lumbar spine surgery for decompression of spinal cord Family History Grandmother COPD (chronic obstructive pulmonary disease) Asthma Mother COPD (chronic obstructive pulmonary disease) Asthma Grandfather Lung cancer Other Family history of breast cancer Social History Smoking Status: Never smoker second hand exposure: No alcohol intake: never substance use type: denies use current occupational status: disabled Travel in the last 8 weeks: None household members: other housing: house lives independently: Yes marital status: single current occupational exposures/hazards: No caffeine: Yes special bridgette needs: No agree to transfusion: No do you feel safe at home: Yes victim of physical abuse: No victim of emotional abuse: No victim of sexual abuse: No would you like helpful sources: No [facility] Anesthesia Checklist Patient Identification Patient Identification: Verbal (Name & ) Structural Data Planned Operative Procedure/s: d/c hyst,myosure NPO Status Verified Time NPO: 00:00 Additional verifications Anesthesia Reactions: No Hx Blood Transfusions: No Blood Transfusion Reaction: No Airway Assessment C-Spine Mobility Assessed: Yes TMJ Mobility Assessed: Yes Dentition: Good Dentition Neurological Assessment Level of Consciousness: Awake, Alert and Appropriate Anesthesia Plan Anesthesia Risk discussed: Yes Anesthesia Plan: Verified ASA Class: III Anesthesia Type: General
--- NOTE | 2022-08-31 07:57 | SUR.OPER ---
0730- Dr. Paredes aware of HCG Quant being 5 at this time after redraw this morning, wants to proceed with the procedure.
--- NOTE | 2022-08-31 08:28 | P.OP_ITS ---
Date of procedure: 08/31/22 Pre-op Diagnosis:: 1. Thickened endometrium 2. Pelvic pressure in female 3. Uterine fibroid 4. Family history of ovarian cancer 5. Family history of breast cancer ? ? Post-op Diagnosis:: 1. Thickened endometrium 2. Pelvic pressure in female 3. Uterine fibroid 4. Family history of ovarian cancer 5. Family history of breast cancer Procedure performed:: 1. Dilation and curettage Surgeon:: Tamra Paredes DO Foundation Engineer(s):: N/a Anesthesia: GETA Estimated blood loss (mL): 3 Clinical Note:: Ms Yuridia Rosales is a 52 yo [id number] who presents to [facility] for scheduled procedure. She complains of pelvic discomfort and family history ovarian cancer. States she was getting regular pelvic ultrasounds in [place] for family history of ovarian cancer. She also has family history of breast cancer and melanoma. Last period was age 48. Denies any bleeding since menopause. Admits to hot flashes that have been present since brain surgery. She admits to difficulty voiding and occasional random leakage of urine. She does not wear a pad or panty liner on any regular basis. She has never had hereditary cancer screening. Pelvic ultrasound, 07/17/22, demonstrated?thickened endometrium, 8mm, and multiple small fibroids. Patient denies postmenopausal bleeding. Operative findings:: 1. On bimanual exam, normal size uterus, midposition. No adnexal masses palpated 2. Stenotic internal cervical os Operative note:: Risks, benefits and alternatives were discussed with the patient. Risks include but are not limited to bleeding, infection, uterine perforation and VTE. Patient voiced understanding and agreed to proceed. She was wheeled back to the operating room and placed under general anesthesia without difficulty. She was placed in dorsal lithotomy position and prepped and draped in the normal sterile fashion. Straight catheter was used to drain the bladder. A bimanual exam was performed. A weighted Auvard was placed in the vaginal vault. Single tooth tenaculum was placed on anterior lip of the cervix. Uterus sounded to 7. Sequential Augie dilators were used to dilate the cervical os. Unable to dilate internal cervical os enough to insert hysteroscope. Decision was made to proceed with sharp curette instead of continuing to try to dilate at the risk of uterine perforation. Small size sharp curette was inserted through the cervix into the uterine cavity. The endometrial cavity was curetted with a systemic [id number] movement of the curette so that all possible endometrium was sampled. Endometrial curettings will be sent to pathology for review. Instruments were removed from the vagina. Tenaculum site was noted to oozing. 2- 0 Chromic suture was used to suture ligate the bleeding. Hemostasis was noted. Patient was awaken from anesthesia without difficulty. She was transported to recovery room in stable condition. Patient will be discharged home when awake and ambulating. She was given postop instructions as well as instructions to follow-up in the office in 2 weeks at which time pathology will be reviewed. Condition: stable Disposition: same day Specimens:: Endometrial curettings Complications:: None
--- NOTE | 2022-08-31 08:33 | EXP.ANES.I ---
[facility] Anesthesia Record Part I Anesthesia Record I Intake, IV Amount: 900 Estimated blood loss (mL): 3 Urine output (mL): 0 Blood Products used (#): none Blood Pressure: 139/90 SaO2: 92 Pulse Rate: 72 Respiratory Rate: 16 Temperature: 98.2 F Patient is:: Drowsy and Stable Stable to PACU at:: 08:28
== END 2022-08-31 09:59 | disposition home or self-care (01) ==
PROVIDERS: PCP Family Medicine; Visit Provider Obstetrics & Gynecology
PROC: (CPT 58558; principal; 2022-08-31 07:30)
DX: R93.89 Abnormal findings on diagnostic imaging of other specified body structures (principal); D25.9 Leiomyoma of uterus, unspecified; Z80.3 Family history of malignant neoplasm of breast; Z80.41 Family history of malignant neoplasm of ovary; Z79.899 Other long term (current) drug therapy
CPT/HCPCS: 58558; 84702

== ENCOUNTER → 2022-09-05 09:06 | Outpatient (CLI) | payer OTHER, SELFPAY ==
[2022-09-07 12:12] LABS: Adrenocorticotropic Hormone 5.3 pg/mL (7.2-63.3)
== END ==
PROVIDERS: PCP Family Medicine; Visit Provider Family Medicine
DX: E27.40 Unspecified adrenocortical insufficiency (principal)
CPT/HCPCS: 36415; 82024

== ENCOUNTER 2022-09-05 09:29 | Emergency (ER) | payer OTHER, SELFPAY ==
[2022-09-05] VITALS (9 sets, daily range): BP systolic 117–154; BP diastolic 60–88; PULSE 56–79; RESP 17–18; TEMP 36.8; O2SAT 95–97; BMI 41.5
--- NOTE | 2022-09-05 10:01 | HMH.EDGENADL ---
Discharge Plan Disposition Patient Disposition: Home, Self-Care Condition: Good Prescriptions Prescriptions: No Action levothyroxine 137 mcg tablet 137 mcg PO DAILY calcium carbonate [Calcium 500] 500 mg calcium (1,250 mg) tablet,chewable 1,000 mg PO BID fenofibrate nanocrystallized 145 mg tablet 145 mg PO DAILY dexlansoprazole 60 mg capsule,biphase delayed releas 60 mg PO DAILYP PRN (Reason: stomach) Nurtec ODT 75 mg tablet,disintegrating 75 mg PO DAILY Label Comments: DISSOLVE 1 TABLET BY MOUTH AT THE ONSET of a HEADACHE DIRECTED lorazepam 2 mg tablet 2 mg PO Q8H PRN (Reason: Anxiety) Label Comments: TAKE 1/2 TO 1 TABLET BY MOUTH EVERY 8 HOURS NEEDED FOR ANXIETY albuterol sulfate 90 mcg/actuation HFA aerosol inhaler 2 inh IH Q6H PRN (Reason: shortness of breath or wheezing) 90 Days Qty: 8.5 3RF bisoprolol fumarate 5 mg tablet 5 mg PO BID Qty: 180 3RF ipratropium-albuterol 0.5 mg-3 mg(2.5 mg base)/3 mL solution for nebulization 3 ml IH QID PRN (Reason: shortness of breath or wheezing) 90 Days Qty: 270 3RF bumetanide 1 MG tablet 1 mg PO DAILY Rx Instructions: TAKE ONE TABLET BY MOUTH DAILY NEEDED FOR EDEMA tramadol 50 mg tablet 50 mg PO BID PRN (Reason: .) Qty: 60 0RF bupivacaine (PF) 2.5 MG/ML solution 1.3 mg IT CONT Rx Instructions: medication delivered via intrathecal pain pump. actual concentration is 5mg/ml. total volume of pump is 20ml hydromorphone (PF) 1 MG/ML syringe 2.6 mg IT CONT Rx Instructions: medication delivered via intrathecal pain pump. actual concentration 10mg/ml. total volume of pump is 20ml tizanidine 4 MG tablet 4 mg PO TID valsartan 80 mg tablet 80 mg PO BID ibuprofen 800 mg tablet 800 mg PO Q8H PRN (Reason: Pain) Qty: 20 0RF Referrals Follow up/Referrals: Gayla Galan MD [Primary Care Provider] - See instructions Activity Restrictions/Add. Instructions Additional Instructions/Restrictions: You have been evaluated for difficulty swallowing, neck pain, swelling. CT scan today looks quite reassuring. There is no obvious area of infection, vascular abnormality or other acute finding. It is very important that you follow-up with your primary care doctor as well as your spine surgeon. Follow-up with your periodontist on Wednesday as scheduled. Return to the emergency department at once for any new or worsening symptoms, difficulty breathing or other concerns. Clinical Impressions Clinical Impression: Dysphagia, Localized swelling, mass and lump, neck Instructions Patient Instructions: DI for Neck Pain Discharge ED Provider: Rosa Maria Rivers Adult HPI General Chief complaint: Nausea/Vomiting/Diarrhea Stated complaint: swollen on shoulder to neck, WONG, nausea Time Seen by Provider: 09/05/22 09:42 Mode of Arrival: Ambulatory Source of Information: Patient Limitations: No Limitations History of Present Illness HPI narrative: 52-year-old female presenting to the emergency department with neck pain, swelling. Symptoms started about 1 week ago, but have gotten worse. She has swelling on the left side of her neck, in the front. Feels like it is difficult to swallow. She has some pain that is described as aching and burning. Now also having a headache that is located in the posterior. Does not radiate. No recent illness, fevers, chills, nausea, vomiting. She has a rather complex medical history including cervical fusion 20 years ago, postoperative complications requiring revisions. Also history of Chiari malformation, multiple brain surgeries. No vision changes. No numbness, weakness, tingling in her arms or legs. Related Data Home Medications Medication Instructions Recorded Confirmed levothyroxine 137 mcg tablet 137 mcg PO DAILY hypothyroidism 04/12/18 08/31/22 dexlansoprazole 60 mg 60 mg PO DAILYP PRN stomach 01/23/21 08/31/22
--- NOTE | 2022-09-05 10:22 | CT_ITS ---
PROCEDURE INFORMATION: Exam: CT Head Without Contrast Exam date and time: 09/05/2022 10:59 AM Age: 52 years old Clinical indication: Altered mental status/memory loss; Additional info: AMS TECHNIQUE: Imaging protocol: Computed tomography of the head without contrast. Radiation optimization: All CT scans at this facility use at least one of these dose optimization techniques: automated exposure control; mA and/or kV adjustment per patient size (includes targeted exams where dose is matched to clinical indication); or iterative reconstruction. COMPARISON: CT HEAD/BRAIN WO CON 07/09/2022 1:51 PM FINDINGS: Brain: Normal. No hemorrhage. Unremarkable white matter. There is simple focal fluid inferior to the cerebellar tonsils which appears postoperative and unchanged. No mass effect. Cerebral ventricles: No ventriculomegaly. Paranasal sinuses: Visualized sinuses are unremarkable. No fluid levels. Mastoid air cells: Visualized mastoid air cells are well aerated. Bones/joints: There are postop changes from a suboccipital craniotomy. Soft tissues: Unremarkable. IMPRESSION: There is no acute intracranial abnormality.
--- NOTE | 2022-09-05 10:22 | CT_ITS ---
PROCEDURE INFORMATION: Exam: CTA Head With Contrast, Arteriography Exam date and time: 09/05/2022 11:02 AM Age: 52 years old Clinical indication: Headache; Additional info: Dysphagia, neck pain TECHNIQUE: Imaging protocol: Computed tomographic angiography of the head with contrast. Exam focused on the arteries. 3D rendering (Not supervised by radiologist): MIP and/or 3D reconstructed images were created and reviewed. COMPARISON: CT HEAD/BRAIN WO CON 09/05/2022 10:59 AM FINDINGS: ANTERIOR CIRCULATION: Right internal carotid artery: Intracranial segment is patent with no significant stenosis. No aneurysm. Right middle cerebral artery: No occlusion or significant stenosis. No aneurysm. Right anterior cerebral artery: No occlusion or significant stenosis. No aneurysm. Left internal carotid artery: Intracranial segment is patent with no significant stenosis. No aneurysm. Left middle cerebral artery: No occlusion or significant stenosis. No aneurysm. Left anterior cerebral artery: No occlusion or significant stenosis. No aneurysm. POSTERIOR CIRCULATION: Right vertebral artery: No occlusion or significant stenosis. No aneurysm. Left vertebral artery: No occlusion or significant stenosis. No aneurysm. Basilar artery: No occlusion or significant stenosis. No aneurysm. Right posterior cerebral artery: No occlusion or significant stenosis. No aneurysm. Left posterior cerebral artery: No occlusion or significant stenosis. No aneurysm. Brain: See head CT. IMPRESSION: No large vessel stenosis or occlusion. PROCEDURE INFORMATION: Exam: CTA Neck With Contrast Exam date and time: 09/05/2022 11:02 AM Age: 52 years old Clinical indication: Headache; Additional info: Dysphagia, neck pain TECHNIQUE: Imaging protocol: Computed tomographic angiography of the neck with contrast. 3D rendering (Not supervised by radiologist): MIP and/or 3D reconstructed images were created by the technologist. Radiation optimization: All CT scans at this facility use at least one of these dose optimization techniques: automated exposure control; mA and/or kV adjustment per patient size (includes targeted exams where dose is matched to clinical indication); or iterative reconstruction. Contrast material: ISOVUE 370; Contrast volume: 100 ml; Contrast route: INTRAVENOUS (IV); COMPARISON: CT ANGIO CHEST PE PROTOCOL 08/22/2021 8:47 PM FINDINGS: Right common carotid artery: No stenosis. No dissection or occlusion. Right internal carotid artery: No stenosis of the extracranial segment. No dissection or occlusion. Right external carotid artery: No occlusion or stenosis of the origin. Left common carotid artery: No stenosis. No dissection or occlusion. Left internal carotid artery: No stenosis of the extracranial segment. No dissection or occlusion. Left external carotid artery: No occlusion or stenosis of the origin. Right vertebral artery: No stenosis. No dissection or occlusion. Left vertebral artery: No stenosis. No dissection or occlusion. Soft tissues: Normal. No significant soft tissue swelling. Bones/joints: There are postop changes of the cervical spine with an anterior plate from C5 through C7. There is a acute kyphosis of the cervical spine at C4. There are postop changes from posterior decompression of the cervical spine from the craniocervical junction through C7-T1. IMPRESSION: 1. No cervical arterial occlusion or stenosis. 2. Extensive operative changes from the craniocervical junction throughout the cervical spine not fully assessed. REFERENCES: [facility] CR[facility]
--- NOTE | 2022-09-05 10:34 | PC.NURSE ---
PT to RAD for CT
[2022-09-05 10:37] LABS: Basophils # 0.1 K/mm3 (0-0.2); Eosinophils # 0.1 K/mm3 (0.0-0.4); Eosinophils % 2.2 % (0.1-12.0); Hematocrit 42.4 % (37.0-47.0); Hemoglobin 13.5 g/dL (12.2-16.2); Lymphocytes # 2.2 K/mm3 (0.7-4.5); Lymphocytes % 41.6 % (10-50); Mean Corpuscular HGB Conc 31.7 g/dL (31.8-35.4); Mean Corpuscular Hemoglobin 29.6 pg (27.0-31.2); Mean Corpuscular Volume 93.2 fl (81-99); Mean Platelet Volume 9.1 fl (7.4-10.4); Monocytes # 0.3 K/mm3 (0.1-1.0); Monocytes % 6.3 % (1.7-9.3); Neutrophils # 2.6 K/mm3 (1.8-7.8); Platelet Count 233 K/mm3 (142-424); Red Blood Count 4.56 M/mm3 (4.20-5.40); Red Cell Distribution Width 14.4 % (11.5-17.5); White Blood Count 5.3 K/mm3 (4.8-10.8)
[2022-09-05 10:41] LABS: Chloride 99 mmol/L (98-107)
[2022-09-05 10:42] LABS: Potassium 3.2 mmoL/L (3.5-5.1); Sodium 141 mmol/L (136-145)
[2022-09-05 10:44] LABS: Alanine Aminotransferase 23 U/L (12-78); Alkaline Phosphatase 57 U/L (38-126); Aspartate Amino Transferase 37 U/L (14-36); Bilirubin,Total 0.3 mg/dl (0.2-1.3); Blood Urea Nitrogen 14 mg/dl (7-17); Estimated Glomerular Filt Rate 75 ml/min (>60); GFR (African American) 90 ML/MIN (>60)
[2022-09-05 10:45] LABS: Albumin Level 4.6 g/dl (3.5-5.0); Albumin/Globulin Ratio 1.5 (1.1-1.8); Anion Gap 9.2 mEq/L (5-15); Carbon Dioxide 36 mmol/L (22.0-30.0); Globulin 3.1 g/dL (1.3-3.2); Glucose 86 mg/dl (74-100); Total Protein,Serum 7.7 g/dl (6.3-8.2)
== END 2022-09-05 15:05 | disposition home or self-care (01) ==
PROVIDERS: Emergency Provider Emergency Medicine; PCP Family Medicine
DX: R13.10 Dysphagia, unspecified (principal); R22.1 Localized swelling, mass and lump, neck; Z79.899 Other long term (current) drug therapy; E03.9 Hypothyroidism, unspecified; G43.909 Migraine, unspecified, not intractable, without status migrainosus; F41.9 Anxiety disorder, unspecified; E78.5 Hyperlipidemia, unspecified; I10 Essential (primary) hypertension; J45.40 Moderate persistent asthma, uncomplicated; Z86.16 Personal history of COVID-19; Z83.6 Family history of other diseases of the respiratory system; Z80.3 Family history of malignant neoplasm of breast
CPT/HCPCS: 70450; 70498; 80053; 85025; 96365; 96375; 99285; Q9967

== ENCOUNTER → 2022-09-12 11:00 | Outpatient (CLI) | payer OTHER, SELFPAY ==
[2022-09-12 14:46] LABS: Thyroid Stimulating Hormone 2.49 uIU/mL (0.465-4.68)
== END ==
PROVIDERS: PCP Family Medicine; Visit Provider Internal Medicine
DX: E03.8 Other specified hypothyroidism (principal); E06.3 Autoimmune thyroiditis
CPT/HCPCS: 36415; 84443

== ENCOUNTER → 2022-10-03 11:14 | Outpatient (CLI) | payer OTHER, SELFPAY ==
[2022-10-03 11:25] LABS: Microscopic, Urine URINE MICROSCOPIC (MICROSCOPIC)
[2022-10-03 13:09] LABS: Basophils # 0.1 K/mm3 (0-0.2); Basophils % 1.2 % (0.1-2.0); Eosinophils # 0.2 K/mm3 (0.0-0.4); Eosinophils % 3.6 % (0.1-12.0); Hematocrit 40.9 % (37.0-47.0); Hemoglobin 12.9 g/dL (12.2-16.2); Lymphocytes % 41.3 % (10-50); Mean Corpuscular HGB Conc 31.6 g/dL (31.8-35.4); Mean Platelet Volume 9.5 fl (7.4-10.4); Monocytes # 0.3 K/mm3 (0.1-1.0); Monocytes % 6.7 % (1.7-9.3); Neutrophils # 2.3 K/mm3 (1.8-7.8); Neutrophils % 47.2 % (37.0-80.0); Platelet Count 227 K/mm3 (142-424); Red Blood Count 4.44 M/mm3 (4.20-5.40); Red Cell Distribution Width 14.3 % (11.5-17.5); White Blood Count 4.9 K/mm3 (4.8-10.8)
[2022-10-03 13:26] LABS: Chloride 101 mmol/L (98-107); Potassium 4.2 mmoL/L (3.5-5.1); Sodium 142 mmol/L (136-145)
[2022-10-03 13:29] LABS: Alanine Aminotransferase 25 U/L (12-78); Alkaline Phosphatase 48 U/L (38-126); Anion Gap 12.2 mEq/L (5-15); Aspartate Amino Transferase 36 U/L (14-36); Blood Urea Nitrogen 13 mg/dl (7-17); Calcium 9.6 mg/dl (8.4-10.2); Carbon Dioxide 33 mmol/L (22.0-30.0); Estimated Glomerular Filt Rate 75 ml/min (>60); GFR (African American) 90 ML/MIN (>60); Glucose 69 mg/dl (74-100); Iron 51 ug/dL (37-170)
[2022-10-03 13:30] LABS: Albumin Level 4.3 g/dl (3.5-5.0); Globulin 2.2 g/dL (1.3-3.2); Total Protein,Serum 6.5 g/dl (6.3-8.2)
[2022-10-03 13:37] LABS: Appearance,Urine CLEAR (Clear); Bilirubin,Urine Negative (Negative); Blood, Urine Negative (Negative); Color,Urine YELLOW (Yellow); Glucose,Urine (UA) Negative (Negative); Ketones,Urine Negative (Negative); Leukocyte Esterase,Urine Negative (Negative); Nitrate,Urine Negative (Negative); Protein,Urine Negative (Negative); Urobilinogen,Urine 0.2 EU/dl (0.2)
[2022-10-03 13:42] LABS: Bilirubin,Total 0.1 mg/dl (0.2-1.3)
[2022-10-03 14:20] LABS: Bacteria,Urine Trace /lpf
[2022-10-03 14:31] LABS: 25-OH Vitamin D, Total 53.1 ng/mL (30-100)
[2022-10-03 17:57] LABS: Vitamin B12 882 pg/mL (239-931)
== END ==
PROVIDERS: PCP Orthopaedic Surgery; Visit Provider Orthopaedic Surgery
DX: Z01.818 Encounter for other preprocedural examination (principal); M79.672 Pain in left foot
CPT/HCPCS: 36415; 80053; 81001; 82306; 82607; 82746; 83540; 85025

== ENCOUNTER → 2022-11-03 10:57 | Outpatient (POV) | payer OTHER, SELFPAY ==
[2022-11-03 12:01] VITALS: BP 124/63; PULSE 66; RESP 20; O2SAT 93; BMI 41.5
--- NOTE | 2022-11-03 12:26 | EXP.PAIN.SOA ---
[facility] Pain Management SOAP Note Subjective:: Patient is a pleasant 52-year-old female who presents today for follow-up. We are currently treating the patient for degenerative disc disease of lumbar spine multilevels with lumbar radiculopathy symptoms, chronic pain. Today the patient rates her pain a 8 out of 10. Patient denies any new trauma or injury. Patient denies any change to the location or type of pain she experiences. Patient states that she has significant pain due to a long history of back surgery, spinal stenosis, spina bifida, autoimmune disorders, etc. Patient states that she does get Botox for migraines which does provide some additional relief of her headache symptoms. Patient states she often has to sleep in a recliner at night due to her worsening pain symptoms when laying down. Patient states she has chronic muscle spasms that she has been prescribed tizanidine for however this medication is no longer as effective as it initially was. Patient has tried baclofen and Flexeril in the past and is requesting a change in her muscle relaxer. Patient is currently managed with intrathecal pain pump of Dilaudid 20 mg/mL with a daily dose of 3.75 mg/day. Patient denies any side effects to this medication. Patient states this medication does adequately help manage her pain symptoms. She is also taking gabapentin 400 mg 3 times a day. Patient did just have this refilled and is not requiring anything additional on this today. Her George is [phone]. It has been reviewed and appropriate. Review of Systems: General: No recent weight changes, no fever, no sleep disturbances Respiratory: No cough, no shortness of air, no recurring pulmonary infections Cardiovascular/peripheral vascular: No chest pain, no palpitations, no edema, no shortness of breath Gastrointestinal: No new onset incontinence, normal bowel movements reported Genitourinary: No new onset incontinence Musculoskeletal: Low back pain Psychiatric: [Normal mood/affect] Neurological: [Denies weakness in extremities], [denies balance issues] Objective:: Physical Exam: General: Alert and oriented x3, no acute distress, pleasant and cooperative Lungs: Respirations even and unlabored, symmetrical chest expansion Eyes: PERRL Musculoskeletal: Flexion and extension of lumbar [spine] somewhat guarded secondary to pain, [antalgic gait noted] Neurological: Speech clear, no gross sensory deficit Assessment:: Degenerative disc disease of lumbar spine multilevels with lumbar radiculopathy symptoms, chronic pain Plan:: Patient continues to experience significant pain in her low back with radiating symptoms into her lower extremities. I will send in a prescription of methocarbamol 750 mg 3 times daily and provide a 1 month supply of this medication. I have counseled the patient to stop all other muscle relaxers while taking this medication. Patient will contact our office if she needs additional follow-up visits. We will make sure that her next intrathecal refill date will be made available at home if needed due to and upcoming procedure in November. Patient has been instructed to contact the clinic with any concerns before the next appointment. Dr. Boyce has reviewed this note and agrees with this plan of care. This note was dictated using voice recognition software and make contain errors or omissions. -- It Is medically necessary for this patient to continue to have their intrathecal pump refilled at regular intervals. This patient had an intrathecal pain pump implanted after meeting criteria of chronic intractable pain for greater than 3 months and failing conservative treatments. Patient has committed and been compliant to the treatment plan and all planned follow up care. Since implantation of the intrathecal pain pump, the patient has had decreased pain and been more functional. Oral medications have been reduced including intake of oral opioids. Patient continues to do well with intrathecal thera
== END | disposition home or self-care (01) ==
PROVIDERS: PCP Family Medicine; Visit Provider Nurse Practitioner Family
DX: M51.16 Intervertebral disc disorders with radiculopathy, lumbar region (principal); G89.29 Other chronic pain
CPT/HCPCS: 99212; G0463

== ENCOUNTER 2022-11-06 06:03 | Day surgery (SDC) | payer OTHER, SELFPAY ==
--- NOTE | 2022-09-01 07:46 | EXP.ANES.II ---
[facility] Anesthesia Record Part II Anesthesia Record Part II Discharge Time: 08:58 Destination: Surgical Day Care (OP Surgery) PACU nurse assessment reviewed?: Yes Patient Condition:: Good Anesthesia Complications:: None Swallowing reflex intact?: Yes Cyanosis?: No Blood Pressure: 129/63 Pulse Rate: 61 Temperature: 97.2 F Mental Status: Alert & Oriented Pain level:: 3 Nausea and/or vomitting:: None Intake, IV Amount: 0
[2022-09-01 07:47] VITALS: BP 129/63; PULSE 61; TEMP 36.2
--- NOTE | 2022-10-02 10:24 | SW/DCPLANNER ---
I called and spoke with this patient regarding discharge plans post foot surgery on 10/09/2022. Patient stated that she originally had planned for a friend to stay with her and assist her at home but he is unable to do that for six weeks due to being employed. I explained different discharge options to this patient: home w/ family and friends assistance vs placement for Medicaid pending. Patient is not a candidate for home health at this time due to no home health agencies being in network w/ patient's insurance. I explained to patient that we could look into Medicaid pending placement which would require patient to stay at facility for 30 days and payment is monthly income but she gets to keep $40. Patient did ask what facilities would be available in [place] and I explained [facility] or [facility] pending bed availability. Patient suggested [facility] and I informed patient that at this time they do not have any Medicaid beds available. Patient stated that she was receiving an important phone call and would call me back.
[2022-11-04 14:14] VITALS: BMI 39.6
[2022-11-06] VITALS (14 sets, daily range): BP systolic 108–153; BP diastolic 56–88; PULSE 63–82; RESP 12–18; TEMP 36.3–43; O2SAT 93–100; BMI 40.1
--- NOTE | 2022-11-06 09:10 | EXP.ANES.CKL ---
[facility] Disclaimer: The information contained in this section may have been updated after the patient was seen, as this information can be updated by other users. Medical History (Updated 11/06/22 @ 06:47 by Afua Goodman RN) Abnormal computerized axial tomography of chest Daytime somnolence Dyspnea on exertion Edema Family history of asthma Family history of atrial fibrillation Follow-up exam Gastroparesis History of 2019 novel coronavirus disease (COVID-19) History of environmental allergies HLD (hyperlipidemia) HTN (hypertension) Hypothyroid ILD (interstitial lung disease) Implantable intrathecal infusion pump present Moderate persistent asthma Morbid obesity due to excess calories Nocturnal hypoxemia Palpitations Pelvic pressure in female Thickened endometrium Surgical History H/O brain surgery H/O myomectomy History of cardiac cath History of cervical discectomy History of section History of colonoscopy History of esophagogastroduodenoscopy (EGD) History of surgery History of tubal ligation Hx of cholecystectomy Hx of fusion of cervical spine Status post lumbar spine surgery for decompression of spinal cord Family History Grandmother COPD (chronic obstructive pulmonary disease) Asthma Mother COPD (chronic obstructive pulmonary disease) Asthma Grandfather Lung cancer Other Family history of breast cancer Social History (Updated 11/06/22 @ 06:47 by Afua Goodman RN) Smoking Status: Never smoker second hand exposure: No alcohol intake: never substance use type: denies use current occupational status: unemployed Travel in the last 8 weeks: None household members: other housing: house lives independently: Yes marital status: single current occupational exposures/hazards: No caffeine: Yes special bridgette needs: No agree to transfusion: No do you feel safe at home: Yes victim of physical abuse: No victim of emotional abuse: No victim of sexual abuse: No would you like helpful sources: No [facility] Anesthesia Checklist Patient Identification Patient Identification: Arm Band and Verbal (Name & ) Structural Data Admitted From: Home Planned Operative Procedure/s: Left Tarsal Tunnel Release Consent for Planned Operative Procedure(s) Verified: Yes Verified Documents: Surgical Consent NPO Status Verified Time NPO: 00:00 Chart Verification Results Verified: CBC and BMP Additional verifications Anesthesia Reactions: Yes (NAUSEA / VOMITING) Hx Blood Transfusions: Yes Blood Transfusion Reaction: No Airway Assessment C-Spine Mobility Assessed: Yes TMJ Mobility Assessed: Yes Dentition: Good Dentition Neurological Assessment Level of Consciousness: Awake, Alert and Appropriate Anesthesia Plan Anesthesia Risk discussed: Yes ASA Class: III Anesthesia Type: General w/block
--- NOTE | 2022-11-06 09:32 | P.PNANES_ITS ---
[facility] Anesthesia Record Part I Anesthesia Record I Intake, IV Amount: 1,000 Estimated blood loss (mL): 2 Urine output (mL): 0 Blood Pressure: 113/60 SaO2: 93 Pulse Rate: 77 Respiratory Rate: 18 Temperature: 97.8 F Patient is:: Drowsy and Nasal O2
--- NOTE | 2022-11-06 09:39 | EXP.OP.NOTE ---
Date of procedure: 11/06/22 Pre-op Diagnosis:: Left tarsal tunnel syndrome, plantar fasciitis Post-op Diagnosis:: Same Procedure performed:: 97441: Left tarsal tunnel release 18064: Left open partial plantar fasciectomy 37780: Baxters neurolysis Surgeon:: Hans Angulo JR, MD Floor Worker Well Service(s):: Hannah Martinez PA-C MACHINE TECH:: [place] Storm Anesthesia: GETA and regional Estimated blood loss (mL): 20 Clinical Note:: 52-year-old female with complicated symptom constellation, multiple medical comorbidities, with left tarsal tunnel confirmed via EMG, Planter fasciitis. She had transient relief from corticosteroid injections but her symptoms had returned. She had failed other conservative measures including boot wear, physical therapy, activity modification and orthotics. Having failed conservative measures she was interested in more durable intervention. After discussion of risk, benefits, alternatives, she was interested in proceeding with left tarsal tunnel release, open partial plantar fasciectomy. We discussed the risk and benefits of surgery. Risks included but were not limited to pain, bleeding, infection, damage to adjacent structures, need for further surgery, wound healing complications, loss of limb, . Patient expressed verbal consent and written consent was obtained for the above procedure. Operative findings:: Perineural vessels patent following tibial nerve decompression. Operative note:: Patient was identified in preoperative holding. Operative site was marked in indelible ink. History, physical, consent were reviewed and updated. Patient was surrendered to the anesthesia team, taken to the operative suite, placed supine on a well-padded operative table. Ipsilateral hip bump was placed as was a nonsterile thigh tourniquet. Anesthesia was induced. The operative extremity was prepped and draped in the usual sterile fashion. The operative team donned sterile gowns and gloves and a timeout was called. All in attendance agreed regarding the patient's identity, procedure, operative site. Weight-based dose of antibiotics was given prior to incision. Attention was directed to the medial aspect of the left ankle, the tarsal tunnel area, where a 4 cm incision was made along the course, just posterior inferior to the posterior tibial tendon. The incision was then deepened down to flexor retinaculum, which was incised. The compartment of the tibial nerve and tibial artery and venae comitantes were identified. The tibial nerve was identified, noted to have moderate fibrosis and fatty tissue on the nerve, but no signs of ganglion cysts or other foreign body. The scar tissue and fatty tissue was debrided from the nerve. The perineural vessels were patent after decompression. I carried the dissection distally, encountered the fascia overlying the abductor hallucis which I incised, noted bulging of the underlying musculature. This was swept first plantarly and I incised the deep fascia surrounding the abductor hallucis, then I swept the muscle belly proximally and completed the release of the abductor hallucis fascia, thereby decompressing Baxters nerve as well. I identified the plantar fascia, freed this dorsally and plantarly, grasped the medial third with a forcep, and utilizing a 15 blade scalpel, I resected the plantar fascial origin medially which I sent for pathology., Wounds were closed in anatomic layers. Sterile dressings applied followed by postoperative boot to be applied in PACU. Counts were correct x2. There were no apparent complications. I was present and scrubbed for the entire case. Tourniquet time (min): 20 Condition: stable Disposition: PACU Specimens:: Resected plantar fascia sent for pathology. Complications:: None apparent
--- NOTE | 2022-11-06 10:25 | SUR.PHASEI ---
1012 called and gave detailed report to Beau Jones RN 1014 transported via stretcher to post op. vital signs stable. pt has chronic pain in back and neck. rates pain as an 8. denies pain in left foot/surgical site.
--- NOTE | 2022-11-06 12:04 | SUR.PHASEII ---
1115- assisted patient w/ bedpan. 1120-Assisted patient to dress and into wc with help from Kemar
--- NOTE | 2022-11-09 08:42 | EXP.ANES.II ---
[facility] Anesthesia Record Part II Anesthesia Record Part II Discharge Time: 10:14 Destination: Surgical Day Care (OP Surgery) PACU nurse assessment reviewed?: Yes Patient Condition:: Good Anesthesia Complications:: None Swallowing reflex intact?: Yes Cyanosis?: No Blood Pressure: 143/84 Pulse Rate: 72 Temperature: 97.3 F Mental Status: Alert & Oriented Pain level:: 8 Nausea and/or vomitting:: None Intake, IV Amount: 0
[2022-11-09 08:43] VITALS: BP 143/84; PULSE 72; TEMP 36.3
== END 2022-11-06 11:45 | disposition home or self-care (01) ==
PROVIDERS: PCP Family Medicine; Visit Provider Orthopaedic Surgery
PROC: (CPT 28035; principal; 2022-11-06 07:30)
DX: G57.52 Tarsal tunnel syndrome, left lower limb (principal); M72.2 Plantar fascial fibromatosis; I10 Essential (primary) hypertension; E03.9 Hypothyroidism, unspecified; Z79.899 Other long term (current) drug therapy
CPT/HCPCS: 28035; 28060; 64704; 96374; 97760; J1956

== ENCOUNTER → 2022-11-20 11:06 | Outpatient (CLI) | payer OTHER, SELFPAY ==
--- NOTE | 2022-11-20 11:09 | XR_ITS ---
FINAL REPORT CLINICAL HISTORY: s/p surgery FINDINGS: Left foot Three views were obtained. Mild hallux valgus deformity is identified. There is no acute fracture or dislocation. There is a plantar calcaneal spur. There are mild degenerative changes of the 1st metatarsophalangeal. No soft tissue abnormality is identified. IMPRESSION: Degenerative and chronic appearing findings. Reviewed, Interpreted and Dictated by Eddie Frost III, MD Transcribed by Sada Donnelly Authenticated and [facility]
== END ==
LOC: RAD 11:07 → RT 12-04 16:07
PROVIDERS: PCP Family Medicine; Visit Provider Orthopaedic Surgery
DX: M79.671 Pain in right foot (principal)
CPT/HCPCS: 73630

== ENCOUNTER → 2022-12-04 16:08 | Outpatient (CLI) | payer OTHER, SELFPAY ==
--- NOTE | 2022-12-04 | CA_ITS ---
FINAL REPORT TECHNIQUE: Color Doppler, duplex Doppler and compression sonography of the left lower extremity deep venous systems was performed. CLINICAL HISTORY: LLE knee pain, knee redness FINDINGS: There is no evidence of deep venous thrombosis from the level of the groin to the calf. The veins are patent and compressible. IMPRESSION: No evidence of deep venous thrombosis left lower extremity. Reviewed, Interpreted and Dictated by Eddie Frost III, MD Transcribed by Sada Donnelly Authenticated and [facility]
== END ==
PROVIDERS: PCP Family Medicine; Visit Provider Orthopaedic Surgery
DX: M79.662 Pain in left lower leg (principal)
CPT/HCPCS: 93971

== ENCOUNTER → 2022-12-25 14:51 | Outpatient (CLI) | payer OTHER, SELFPAY ==
--- NOTE | 2022-12-25 14:59 | XR_ITS ---
FINAL REPORT CLINICAL HISTORY: s/p foot pain COMPARISON: 11/20/2022 FINDINGS: Left foot Three views were obtained. There is no acute fracture or dislocation. There are mild degenerative changes of the 1st metatarsophalangeal joint. Note is made of a plantar calcaneal spur. No soft tissue abnormality is identified. IMPRESSION: Mild degenerative changes. Reviewed, Interpreted and Dictated by Eddie Frost III, MD Transcribed by Sada Donnelly Authenticated and [facility]
== END ==
PROVIDERS: PCP Family Medicine; Visit Provider Orthopaedic Surgery
DX: M72.2 Plantar fascial fibromatosis (principal)
CPT/HCPCS: 73630

== ENCOUNTER 2023-01-07 14:01 | Outpatient (RCR) | payer OTHER, SELFPAY ==
--- NOTE | 2023-01-07 15:02 | HMH.PTOPEV ---
PT Outpatient Evaluation Rehab PT Outpatient Evaluation Start: 01/07/23 14:49 Freq: Status: Active Protocol: Document 01/07/23 14:49 PASCUAL (Rec: 01/07/23 15:01 PASCUAL [id number]) E-signed By Heber Aguirre, PT Outpatient Therapy Subjective History Subjective History Pt presents s/p left foot/ ankle plantar fascia and tarsal tunnel release on 11/07. Pt reports lingering medial aspect left foot/ankle pain, swelling, as well as limitations in left foot/ankle mobility, and strength. Pt reports very extensive PMH, ' which may compromise my healing a bit'. PMH: multiple autoimmune 'issues', partial occipital skull removal, C1-7 laminectomy, cervical and lumbar stenosis, and DDD, spina bifida, h/o 150+ concussions Chief Complaint Pain,Stiff,Swelling, Paresthesia,Weakness Symptom Type Ache,Sharp,Dull Symptoms Relieved By Rest/Positioning,Ice Symptoms Aggravated By Standing,Physical Activity, Walking Prior Functional Limitations Housework,Standing,Walking, Stairs Current Functional Limitations Housework,Standing,Walking, Stairs Symptom Description Constant but Variable Level of pain today (0-10) 8 Pain scale - at its best (0-10) 3 Pain scale - at its worst (0-10) 8 Ankle/Foot Eval Gait Observation General Gait Pattern Observation Antalgic Gait,Wide Based Gait Palpation Tenderness left Ankle/Foot Palpation Findings Tenderness Ankle/Foot Palpation Overall Comment 3-4/4 medial aspect/sx. site, 3/4 plantar fascia, 2-3/4 achilles ROM Ankle/Foot Dorsiflexion w/Knee Extended 0 Active Range Motion (degrees) Ankle/Foot Plantar Flexion Active Range 0-40 of Motion (degrees) Ankle/Foot Eversion Active Range of 0-15 Motion (degrees) Ankle/Foot Inversion Active Range of 0-5 Motion (degrees) Ankle/Foot ROM Limitations Soft Tissue Tightness,Pain MMT Ankle Dorsiflexion Strength Grade 4- Good- Ankle Plantarflexion Strength Grade 4- Good- Foot Eversion Strength Grade 3+ Fair+ Foot Inversion Strength Grade 3+ Fair+ Outpatient Therapy Assessment Impairments Problems/Impairmments Palpation Tenderness,Imp
== END 2023-01-07 14:05 | disposition home or self-care (01) ==
LOC: PT 14:01
PROVIDERS: PCP Family Medicine; Visit Provider Orthopaedic Surgery
DX: M25.572 Pain in left ankle and joints of left foot (principal); G57.50 Tarsal tunnel syndrome, unspecified lower limb; M72.2 Plantar fascial fibromatosis; M25.522 Pain in left elbow; M25.521 Pain in right elbow
CPT/HCPCS: 97163

== ENCOUNTER → 2023-01-12 13:08 | Outpatient (CLI) | payer OTHER, SELFPAY ==
--- NOTE | 2023-01-12 13:09 | US_ITS ---
FINAL REPORT CLINICAL HISTORY: abnormal bleeding COMPARISON: 07/17/2022 FINDINGS: Transvaginal sonographic images of the pelvis were obtained. The uterus measures 7.3 x 5.0 x 3.3 cm. The endometrium is suboptimally visualized and measures up to 7 mm, previously measured 8 mm. There are several uterine masses measuring up to 1.7 cm consistent with fibroids. The right ovary measures 0.9 cm in length and left ovary measures 1.9 cm in length. Normal blood flow seen to the ovaries. There is no evidence of free fluid. IMPRESSION: Endometrium is not well visualized but appears to be persistently mildly thickened. Uterine fibroids. Reviewed, Interpreted and Dictated by Eddie Frost III, MD Transcribed by Penny Gandhi Authenticated and [facility]
== END ==
PROVIDERS: PCP Family Medicine; Visit Provider Obstetrics & Gynecology
DX: N93.9 Abnormal uterine and vaginal bleeding, unspecified (principal)
CPT/HCPCS: 76830

== ENCOUNTER → 2023-01-12 13:52 | Outpatient (CLI) | payer OTHER, SELFPAY ==
[2023-01-12 15:20] LABS: Thyroid Stimulating Hormone 1.46 uIU/mL (0.465-4.68)
== END ==
PROVIDERS: PCP Family Medicine; Visit Provider Internal Medicine
DX: E03.8 Other specified hypothyroidism (principal); E06.3 Autoimmune thyroiditis
CPT/HCPCS: 36415; 84443

== ENCOUNTER → 2023-01-15 13:56 | Outpatient (CLI) | payer OTHER, SELFPAY ==
--- NOTE | 2023-01-15 14:04 | CT_ITS ---
FINAL REPORT TECHNIQUE: Axial CT images were performed from the lung apices through the upper abdomen. Coronal reformats were submitted. High-resolution technique was utilized. CLINICAL HISTORY: soa COMPARISON: 08/22/2021 FINDINGS: There is no axillary adenopathy. There is no hilar or mediastinal mass or adenopathy. Heart size is normal. There is no pericardial or pleural effusion. Opacities seen on the prior exam have overall improved. There is mild bilateral scarring. There is no evidence of significant interstitial lung disease or bronchiectasis. No emphysema is identified. There is a calcified granuloma in the left upper lobe. The patient is status post cholecystectomy. There are less than 3 mm nonobstructing bilateral renal stones. IMPRESSION: Mild bilateral scarring. Reviewed, Interpreted and Dictated by Eddie Frost III, MD Transcribed by Sada Donnelly Authenticated and [facility]
--- NOTE | 2023-01-15 14:04 | XR_ITS ---
FINAL REPORT CLINICAL HISTORY: left ankle pain COMPARISON: none FINDINGS: LEFT ANKLE: Three views of the left ankle were obtained. There is no acute fracture or dislocation. The joint spaces and mortise are intact. There is mild degenerative change. There is a plantar calcaneal enthesopathy. Soft tissue swelling is noted. IMPRESSION: Degenerative change with no acute bony abnormality. Reviewed, Interpreted and Dictated by Eddie Frost III, MD Transcribed by Lisa Roger Authenticated and . [facility]
--- NOTE | 2023-01-15 14:04 | XR_ITS ---
FINAL REPORT CLINICAL HISTORY: left foot pain COMPARISON: 12/25/2022 FINDINGS: LEFT FOOT: Three views of the left foot were obtained. There is no acute fracture or dislocation. The joint spaces are intact. There is mild degenerative change. There is a plantar calcaneal enthesopathy. There is no soft tissue abnormality. IMPRESSION: No acute bony abnormality. Stable exam. Reviewed, Interpreted and Dictated by Eddie Frost III, MD Transcribed by Lisa Roger Authenticated and . [facility]
== END ==
PROVIDERS: PCP Family Medicine; Visit Provider Internal Medicine Pulmonary Disease
DX: M79.672 Pain in left foot (principal); M25.572 Pain in left ankle and joints of left foot; J84.9 Interstitial pulmonary disease, unspecified
CPT/HCPCS: 71250; 73610; 73630

== ENCOUNTER → 2023-02-02 11:35 | Outpatient (CLI) | payer OTHER, SELFPAY ==
--- NOTE | 2023-02-02 11:42 | US_ITS ---
FINAL REPORT CLINICAL HISTORY: lt foot red-- poss fluid FINDINGS: Limited sonographic images of the left foot were obtained. There is subcutaneous edema or fluid at the area of interest. At the level of the scar is a 21 mm complex collection of uncertain etiology, complex fluid is not excluded. IMPRESSION: Complex collection as above, complex fluid is not excluded. Reviewed, Interpreted and Dictated by Eddie Frost III, MD Transcribed by Sada Donnelly Authenticated and [facility]
[2023-02-02 13:10] LABS: C-Reactive Protein 4.1 mg/L (0-4)
[2023-02-02 14:09] LABS: Erythrocyte Sedimentation Rate 21 mm/hr (0-30)
[2023-02-02 14:33] LABS: Basophils # 0.1 K/mm3 (0-0.2); Basophils % 0.6 % (0.1-2.0); Eosinophils # 0.1 K/mm3 (0.0-0.4); Eosinophils % 1.4 % (0.1-12.0); Hematocrit 40.4 % (37.0-47.0); Hemoglobin 12.7 g/dL (12.2-16.2); Lymphocytes # 2.2 K/mm3 (0.7-4.5); Lymphocytes % 23.7 % (10-50); Mean Corpuscular HGB Conc 31.4 g/dL (31.8-35.4); Mean Corpuscular Hemoglobin 28.3 pg (27.0-31.2); Mean Corpuscular Volume 90.1 fl (81-99); Mean Platelet Volume 9.9 fl (7.4-10.4); Monocytes # 0.5 K/mm3 (0.1-1.0); Monocytes % 5.5 % (1.7-9.3); Neutrophils # 6.3 K/mm3 (1.8-7.8); Neutrophils % 68.8 % (37.0-80.0); Platelet Count 242 K/mm3 (142-424); Red Blood Count 4.49 M/mm3 (4.20-5.40); White Blood Count 9.1 K/mm3 (4.8-10.8)
== END ==
PROVIDERS: PCP Family Medicine; Visit Provider Physician Assistant Surgical
DX: M79.604 Pain in right leg (principal); M79.671 Pain in right foot; M79.672 Pain in left foot
CPT/HCPCS: 36415; 76882; 85025; 85651; 86140

== ENCOUNTER → 2023-02-09 16:03 | Outpatient (CLI) | payer OTHER, SELFPAY ==
--- NOTE | 2023-02-09 16:04 | MM_ITS ---
PROCEDURE INFORMATION: Exam: MG Bilateral Screening 3D Mammography Exam date and time: 02/09/2023 3:57 PM Age: 52 years old Clinical indication: Screening mammogram TECHNIQUE: Imaging protocol: Bilateral Screening tomosynthesis and 2D mammography including computer-aided detection (CAD) when performed. COMPARISON: 1. MG MM DIG SCREENING MAMM BI W/CAD 01/09/2022 1:11 PM 2. MG MM DIG SCREENING MAMM BI W/CAD 05/13/2020 4:04 PM 3. MG DMSB DIG MAMM-SCREEN VALDEMAR W/CAD 08/04/2017 10:05 AM 4. MG DMSB DIG MAMM-SCREEN VALDEMAR 05/15/2016 10:41 AM FINDINGS: MAMMOGRAPHY: Breast composition: There are scattered areas of fibroglandular density. Mass: None. Architectural distortion: No new or suspicious architectural distortion. Calcifications: No new or suspicious calcifications are present Asymmetric density: No new or suspicious asymmetric density is present Skin thickening: None. Axillary adenopathy: None. IMPRESSION: No mammographic evidence of malignancy. Recommend annual screening mammography unless otherwise clinically indicated. ASSESSMENT: BI-RADS category 1: Negative
== END ==
PROVIDERS: PCP Family Medicine; Visit Provider Obstetrics & Gynecology
DX: Z12.31 Encounter for screening mammogram for malignant neoplasm of breast (principal)
CPT/HCPCS: 77063; 77067

== ENCOUNTER → 2023-02-16 14:11 | Outpatient (CLI) | payer OTHER, SELFPAY ==
[2023-02-16 15:28] LABS: Basophils # 0.1 K/mm3 (0-0.2); Basophils % 0.6 % (0.1-2.0); Eosinophils # 0.2 K/mm3 (0.0-0.4); Lymphocytes # 1.9 K/mm3 (0.7-4.5); Lymphocytes % 25.4 % (10-50); Mean Corpuscular HGB Conc 31.7 g/dL (31.8-35.4); Mean Corpuscular Hemoglobin 28.7 pg (27.0-31.2); Mean Corpuscular Volume 90.5 fl (81-99); Mean Platelet Volume 9.1 fl (7.4-10.4); Monocytes # 0.4 K/mm3 (0.1-1.0); Neutrophils # 5.1 K/mm3 (1.8-7.8); Neutrophils % 66.9 % (37.0-80.0); Platelet Count 176 K/mm3 (142-424); Red Blood Count 4.53 M/mm3 (4.20-5.40); White Blood Count 7.6 K/mm3 (4.8-10.8)
[2023-02-16 15:42] LABS: Albumin Level 4.6 g/dl (3.5-5.0); Alkaline Phosphatase 71 U/L (38-126); Anion Gap 13.1 mEq/L (5-15); Bilirubin,Total 0.4 mg/dl (0.2-1.3); Blood Urea Nitrogen 22 mg/dl (7-17); Calcium 8.9 mg/dl (8.4-10.2); Carbon Dioxide 30 mmol/L (22.0-30.0); Chloride 100 mmol/L (98-107); Estimated Glomerular Filt Rate 104 ml/min (>60); GFR (African American) 126 ML/MIN (>60); Globulin 2.3 g/dL (1.3-3.2); Glucose 88 mg/dl (74-100); HDL Cholesterol 71 mg/dl (40-60); Potassium 4.1 mmoL/L (3.5-5.1); Sodium 139 mmol/L (136-145); Total Protein,Serum 6.9 g/dl (6.3-8.2)
[2023-02-16 15:44] LABS: Alanine Aminotransferase 23 U/L (12-78); Aspartate Amino Transferase 29 U/L (14-36); Chol/HDL Ratio 3.1 (1-3.5); Cholesterol 218 mg/dl (140-200); Triglycerides 178 mg/dl (30-150); VLDL Cholesterol 36 mg/dL (0-40)
[2023-02-16 15:48] LABS: Hemoglobin A1C 5.6 % (4.0-6.0)
[2023-02-16 15:54] LABS: Direct LDL Cholesterol 112.83 mg/dL (100-129)
[2023-02-16 15:59] LABS: 25-OH Vitamin D, Total 33.8 ng/mL (30-100)
== END ==
PROVIDERS: PCP Family Medicine; Visit Provider Family Medicine
DX: E55.9 Vitamin D deficiency, unspecified (principal); E78.2 Mixed hyperlipidemia; E66.9 Obesity, unspecified; Z68.39 Body mass index [BMI] 39.0-39.9, adult
CPT/HCPCS: 36415; 80053; 80061; 82306; 83036; 85025

== ENCOUNTER 2023-02-22 15:57 | Outpatient (RCR) | payer OTHER, SELFPAY | END 2023-02-22 16:30 | disposition home or self-care (01) | LOC: PT 15:57 | PROVIDERS: Visit Provider Orthopaedic Surgery | DX: M25.572 Pain in left ankle and joints of left foot (principal); M25.571 Pain in right ankle and joints of right foot | CPT/HCPCS: 97760 ==

== ENCOUNTER → 2023-03-05 14:47 | Outpatient (CLI) | payer OTHER, SELFPAY ==
--- NOTE | 2023-03-05 14:51 | XR_ITS ---
FINAL REPORT CLINICAL HISTORY: Left foot pain COMPARISON: 12/25/2022 FINDINGS: LEFT FOOT Three views of the left foot demonstrate no acute fracture or dislocation. There are mild degenerative changes of the 1st metatarsophalangeal joint. Plantar calcaneal spurs are noted. The soft tissues are unremarkable. IMPRESSION: No acute bony abnormality. Reviewed, Interpreted and Dictated by Eddie Frost III, MD Transcribed by Karen Newsome Authenticated and [facility]
== END ==
PROVIDERS: PCP Family Medicine; Visit Provider Orthopaedic Surgery
DX: M79.672 Pain in left foot (principal); Z09 Encounter for follow-up examination after completed treatment for conditions other than malignant neoplasm
CPT/HCPCS: 73630

== ENCOUNTER → 2023-04-07 14:28 | Outpatient (CLI) | payer OTHER, SELFPAY ==
[2023-04-07 16:07] LABS: Microscopic, Urine URINE MICROSCOPIC (MICROSCOPIC)
[2023-04-07 18:09] LABS: Alanine Aminotransferase 34 U/L (12-78); Albumin Level 4.6 g/dl (3.5-5.0); Albumin/Globulin Ratio 1.7 (1.1-1.8); Alkaline Phosphatase 74 U/L (38-126); Anion Gap 16.5 mEq/L (5-15); Aspartate Amino Transferase 38 U/L (14-36); Bilirubin,Total 0.2 mg/dl (0.2-1.3); Blood Urea Nitrogen 24 mg/dl (7-17); Calcium 9.7 mg/dl (8.4-10.2); Carbon Dioxide 33 mmol/L (22.0-30.0); Chloride 93 mmol/L (98-107); Creatine Kinase 87 U/L (30-135); Estimated Glomerular Filt Rate 75 ml/min (>60); GFR (African American) 90 ML/MIN (>60); Globulin 2.7 g/dL (1.3-3.2); Glucose 96 mg/dl (74-100); Potassium 4.5 mmoL/L (3.5-5.1); Sodium 138 mmol/L (136-145); Total Protein,Serum 7.3 g/dl (6.3-8.2)
[2023-04-07 18:15] LABS: C-Reactive Protein 2.5 mg/L (0-4)
[2023-04-07 18:16] LABS: Erythrocyte Sedimentation Rate 22 mm/hr (0-30)
[2023-04-07 18:41] LABS: Basophils % 0.6 % (0.1-2.0); Eosinophils # 0.1 K/mm3 (0.0-0.4); Eosinophils % 2.2 % (0.1-12.0); Hematocrit 40.3 % (37.0-47.0); Lymphocytes # 1.9 K/mm3 (0.7-4.5); Mean Corpuscular HGB Conc 32.2 g/dL (31.8-35.4); Mean Corpuscular Volume 90.1 fl (81-99); Mean Platelet Volume 9.8 fl (7.4-10.4); Monocytes # 0.4 K/mm3 (0.1-1.0); Monocytes % 6.1 % (1.7-9.3); Neutrophils # 3.5 K/mm3 (1.8-7.8); Neutrophils % 59.1 % (37.0-80.0); Platelet Count 224 K/mm3 (142-424); Red Blood Count 4.47 M/mm3 (4.20-5.40); Red Cell Distribution Width 14.7 % (11.5-17.5)
[2023-04-07 19:22] LABS: Appearance,Urine CLEAR (Clear); Bilirubin,Urine Negative (Negative); Blood, Urine Negative (Negative); Color,Urine YELLOW (Yellow); Glucose,Urine (UA) Negative (Negative); Ketones,Urine Negative (Negative); Leukocyte Esterase,Urine Negative (Negative); Nitrate,Urine Negative (Negative); Protein,Urine Negative (Negative); Urobilinogen,Urine 0.2 EU/dl (0.2)
[2023-04-07 20:28] LABS: Squamous Epithelial Cell,Urine Occasional #/hpf (0-5)
[2023-04-07 22:52] LABS: Creatinine,Urine Random 26 mg/dL (Not Estab.)
[2023-04-09 15:04] LABS: Complement C3 184 mg/dL (82-167)
[2023-04-09 16:14] LABS: Angiotensin Converting Enzyme 39 U/L (14-82); Antiscleroderma-70 Antibodies <0.2 AI (0.0-0.9)
[2023-04-12 09:04] LABS: Antinuclear Antibodies, IFA Negative (.)
[2023-04-12 14:39] LABS: dsDNA AB Crithidia Negative (Negative)
== END ==
PROVIDERS: PCP Family Medicine; Visit Provider Internal Medicine Rheumatology
DX: I73.00 Raynaud's syndrome without gangrene (principal); M62.81 Muscle weakness (generalized); R23.4 Changes in skin texture; R23.3 Spontaneous ecchymoses; R60.9 Edema, unspecified
CPT/HCPCS: 36415; 80053; 81001; 82164; 82550; 82570; 84155; 85025; 85651; 86038; 86140; 86161; 86225; 86235

== ENCOUNTER → 2023-04-07 14:52 | Outpatient (POV) | payer OTHER, SELFPAY ==
[2023-04-07 15:08] VITALS: BP 157/89; PULSE 75; RESP 20; BMI 43.2
--- NOTE | 2023-04-08 08:39 | EXP.PAIN.SOA ---
[facility] Pain Management SOAP Note Subjective:: Patient is a pleasant 52-year-old female who presents today for follow-up. We are currently treating the patient for degenerative disc disease of lumbar spine multilevels with lumbar radiculopathy symptoms, chronic pain. Today she rates her pain a 9 out of 10. Patient denies any new trauma or injury. Patient has recently had left foot surgery with Dr. Angulo and continues to have chronic pain at this site. Patient does describe this as an aching, throbbing sensation that is worse with increased activity or ambulation. Patient states that she does have continued swelling and discoloration noted at this extremity. She states due to this pain she has difficulty performing activities of daily living such as cooking and cleaning. She does also state that she has right foot pain as well. Patient is currently managed with intrathecal Dilaudid 20 mg/mL with a daily dose of 3.75 mg/day. Patient denies any side effects from this medication. Patient has been prescribed gabapentin 400 mg 3 times a day and methocarbamol 750 mg 3 times a day from her last visit and she states this did help however she is requesting an increase of the dosage today of both of these medications. Patient has been on gabapentin 600 mg 3 times a day in the past and done well with this medication however at the last time when she tried to get a refill on this medication we had not seen her since October and we only would refill the gabapentin 400 mg 3 times a day. Patient does have a significant health history including multiple autoimmune disorders and does do Botox for migraines as well. Patient has been prescribed oxycodone [address] Angulo's office on multiple occasions over the last couple of months. Her George is [phone]. Its been reviewed Review of Systems: General: No recent weight changes, no fever, no sleep disturbances Respiratory: No cough, no shortness of air, no recurring pulmonary infections Cardiovascular/peripheral vascular: No chest pain, no palpitations, no edema, no shortness of breath Gastrointestinal: No new onset incontinence, normal bowel movements reported Genitourinary: No new onset incontinence Musculoskeletal: Left foot pain Psychiatric: [Normal mood/affect] Neurological: [Denies weakness in extremities], [denies balance issues] Objective:: Physical Exam: General: Alert and oriented x3, no acute distress, pleasant and cooperative Lungs: Respirations even and unlabored, symmetrical chest expansion Eyes: PERRL Musculoskeletal: Flexion and extension of left foot somewhat guarded secondary to pain, [antalgic gait noted] positive leg raise Neurological: Speech clear, no gross sensory deficit Skin: Left foot has noted discoloration with temperature change and edema in comparison to the right -- Assessment:: Degenerative disc disease of lumbar spine multilevels with lumbar radiculopathy symptoms, chronic pain syndrome, CRPS of the lower left extremity Plan:: Patient is experiencing significant pain in her left foot related to recent surgery and symptoms consistent with CRPS. Patient does have discoloration with temperature change and edema in comparison to her right foot. I have discussed with the patient that she may benefit from a sympathetic nerve block. Risk and benefits were discussed with the patient and she would like to proceed forward with this plan of care. I will increase her methocarbamol to 1000 mg 3 times daily and provide a 1 month supply of this medication and at this time we will leave her gabapentin at 400 mg 3 times daily. I have counseled the patient that she cannot do any additional refills of the oxycodone with Dr. Angulo's office due to the increased risk of oversedation in combination with her pump medications. I have explained that if this does continue we will have to decrease her pain medication in her pump or change it to a nonopioid medication such as bupivacaine. We wi
== END | disposition home or self-care (01) ==
PROVIDERS: PCP Family Medicine; Visit Provider Nurse Practitioner Family
DX: M51.16 Intervertebral disc disorders with radiculopathy, lumbar region (principal); G89.4 Chronic pain syndrome
CPT/HCPCS: 99212; G0463

== ENCOUNTER 2023-04-08 16:00 | Outpatient (RCR) | payer OTHER, SELFPAY | END 2023-04-08 16:05 | disposition home or self-care (01) | LOC: PT 16:00 | PROVIDERS: PCP Family Medicine; Visit Provider Family Medicine | DX: R60.1 Generalized edema (principal) | CPT/HCPCS: 97110; 97140; 97163; 97164 ==

== ENCOUNTER → 2023-04-12 15:04 | Outpatient (CLI) | payer OTHER, SELFPAY ==
--- NOTE | 2023-04-12 15:04 | US_ITS ---
FINAL REPORT CLINICAL HISTORY: 2 month follow up u/s for fibroid uterus COMPARISON: 01/12/2023 FINDINGS: Transvaginal sonographic images of the pelvis were obtained. The uterus measures 7.9 x 3.4 x 4.7 cm. Again identified are several uterine masses consistent with fibroids. One of the masses posteriorly contains calcification measuring up to 1.6 cm. There is a small amount of free fluid in the endometrial cavity. The endometrial thickness appears normal. There are small follicles/cysts in the ovaries bilaterally. There is a small amount of fluid in the cul-de-sac, likely physiologic or reactive. IMPRESSION: Uterine fibroids, stable. Small amount of fluid in the endometrial cavity, nonspecific. Small amount of fluid in the cul-de-sac, likely physiologic or reactive. Reviewed, Interpreted and Dictated by Eddie Frost III, MD Transcribed by Sada Donnelly Authenticated and [facility]
== END ==
PROVIDERS: PCP Family Medicine; Visit Provider Obstetrics & Gynecology
DX: D25.9 Leiomyoma of uterus, unspecified (principal)
CPT/HCPCS: 76830

== ENCOUNTER → 2023-04-15 12:16 | Outpatient (CLI) | payer OTHER, SELFPAY ==
--- NOTE | 2023-04-15 12:34 | XR_ITS ---
FINAL REPORT CLINICAL HISTORY: EDEMA,DYSPNEA COMPARISON: 07/09/2022 FINDINGS: TWO-VIEW CHEST There is cardiomegaly with worsening pulmonary vascular congestion. The mediastinum is normal. There is mild bibasilar atelectasis. Postoperative changes seen in the lower cervical spine. There is no pneumothorax. IMPRESSION: Cardiomegaly with worsening pulmonary vascular congestion. Reviewed, Interpreted and Dictated by Eddie Frost III, MD Transcribed by Sada Donnelly Authenticated and [facility]
[2023-04-15 14:03] LABS: Alanine Aminotransferase 37 U/L (12-78); Albumin Level 4.4 g/dl (3.5-5.0); Albumin/Globulin Ratio 1.8 (1.1-1.8); Alkaline Phosphatase 63 U/L (38-126); Anion Gap 18.1 mEq/L (5-15); Aspartate Amino Transferase 46 U/L (14-36); Bilirubin,Total 0.2 mg/dl (0.2-1.3); Blood Urea Nitrogen 18 mg/dl (7-17); Calcium 9.6 mg/dl (8.4-10.2); Carbon Dioxide 30 mmol/L (22.0-30.0); Chloride 98 mmol/L (98-107); Estimated Glomerular Filt Rate 75 ml/min (>60); GFR (African American) 90 ML/MIN (>60); Globulin 2.5 g/dL (1.3-3.2); Glucose 106 mg/dl (74-100); Potassium 4.1 mmoL/L (3.5-5.1); Sodium 142 mmol/L (136-145); Total Protein,Serum 6.9 g/dl (6.3-8.2)
[2023-04-15 14:11] LABS: Basophils % 0.6 % (0.1-2.0); Eosinophils # 0.1 K/mm3 (0.0-0.4); Eosinophils % 2.2 % (0.1-12.0); Hematocrit 40.9 % (37.0-47.0); Hemoglobin 12.9 g/dL (12.2-16.2); Lymphocytes % 33.7 % (10-50); Mean Corpuscular HGB Conc 31.5 g/dL (31.8-35.4); Mean Corpuscular Hemoglobin 28.7 pg (27.0-31.2); Mean Corpuscular Volume 91.4 fl (81-99); Mean Platelet Volume 9.2 fl (7.4-10.4); Monocytes # 0.5 K/mm3 (0.1-1.0); Monocytes % 7.7 % (1.7-9.3); Neutrophils # 3.3 K/mm3 (1.8-7.8); Neutrophils % 55.8 % (37.0-80.0); Platelet Count 208 K/mm3 (142-424); Red Blood Count 4.48 M/mm3 (4.20-5.40); Red Cell Distribution Width 14.9 % (11.5-17.5)
[2023-04-15 14:12] LABS: NT Pro Brain Natriuretic Pep. 21.3 pg/mL (0-125)
[2023-04-15 14:30] LABS: Hemoglobin A1C 5.7 % (4.0-6.0)
== END ==
PROVIDERS: PCP Family Medicine; Visit Provider Family Medicine
DX: R06.00 Dyspnea, unspecified (principal); R60.1 Generalized edema
CPT/HCPCS: 36415; 71046; 80053; 83036; 83880; 85025

== ENCOUNTER 2023-04-20 13:12 | Day surgery (SDC) | payer OTHER, SELFPAY ==
[2023-04-20 13:38] VITALS: BP 147/87; PULSE 76; RESP 18; TEMP 36.5; O2SAT 91; BMI 43.2
[2023-04-20 13:47] VITALS: BP 150/93; PULSE 84; RESP 18; O2SAT 97
[2023-04-20 13:48] VITALS: BP 150/93; PULSE 84; RESP 18; O2SAT 97
[2023-04-20 13:58] VITALS: BP 134/61; PULSE 74; RESP 18; O2SAT 92
--- NOTE | 2023-04-20 14:07 | EXP.PAIN.PRO ---
Procedure Date: 04/20/23 Time: 14:00 Anesthesiologist:: Otf Sherman CRNA Complications:: None Pre-procedure Diagnosis:: Degenerative disc disease lumbar spine multilevels. Lumbar radiculopathy. CRPS symptoms left foot. Post-procedure Diagnosis:: Same Indications for Procedure:: This patient's a 52-year-old female that comes our clinic today for sympathetic epidural steroid injection lumbar spine. Patient has been treated for quite some time for her low back pain secondary to degenerative disc disease lumbar spine multiple levels with lumbar radicular symptoms. Chronic pain syndrome. We manage her with intrathecal Dilaudid 20 mg/mL at a daily dose of 3.75 mg/day. Patient also taking gabapentin 400 mg 1 p.o. 3 times daily. Methocarbamol 750 mg 1 p.o. 3 times daily. I recommended to her today we increase the gabapentin to 800 mg 3 times daily. Patient has been on gabapentin for multiple years. Procedure Details:: Procedure: Lumbar epidural steroid injection under fluoroscopy Informed consent was obtained and the risks and benefits of the procedure were explained to the patient. The patient was taken to the procedure room and noninvasive monitors placed, including noninvasive blood pressure cuff and pulse oximeter. The back was viewed using C-arm Fluoroscopy and prepped using Chloraprep as a cleansing solution and the L4-L5 interspace was palpated. Skin and subcutaneous tissues were anesthetized using lidocaine 1.5% and a 25-gauge needle. After this, an 18-gauge Touhy epidural needle was placed into the L4-L5 interspace and advanced using fluoroscopic guidance and loss of resistance to air until the epidural space was encountered. After confirmation of needle placement in the epidural space, with dye, a solution containing 1% lidocaine, 5 mL and Depo-Medrol 80 mg were incrementally injected into the lumbar epidural space. The patient tolerated the procedure well with no complications. The patient was observed in the Pain Clinic and then discharged home neurologically intact. Plan and Disposition:: Patient was discharged without incident.
== END 2023-04-20 13:58 | disposition home or self-care (01) ==
PROVIDERS: PCP Family Medicine; Visit Provider Nurse Anesthetist, Certified Registered
DX: M51.16 Intervertebral disc disorders with radiculopathy, lumbar region (principal); G89.4 Chronic pain syndrome
CPT/HCPCS: 62323; J1030

== ENCOUNTER 2023-04-21 18:40 | Emergency (ER) | payer OTHER, SELFPAY ==
[2023-04-21 18:40] VITALS: BP 121/81; PULSE 81; RESP 17; TEMP 37; O2SAT 98; BMI 43.2
--- NOTE | 2023-04-21 19:13 | CT_ITS ---
PROCEDURE INFORMATION: Exam: CT Head Without Contrast Exam date and time: 04/21/2023 7:27 PM Age: 52 years old Clinical indication: Stroke-like symptoms; Speech disturbance; Additional info: Speech changes TECHNIQUE: Imaging protocol: Computed tomography of the head without contrast. Radiation optimization: All CT scans at this facility use at least one of these dose optimization techniques: automated exposure control; mA and/or kV adjustment per patient size (includes targeted exams where dose is matched to clinical indication); or iterative reconstruction. Other technique: STROKE PROTOCOL was implemented. REPORTING DATA: Count of CT and Cardiac NM exams in prior 12 months: This patient has received 5 known CTs and 0 known cardiac nuclear medicine studies in the 12 months prior to the current study. COMPARISON: CT HEAD/BRAIN WO CON 09/05/2022 10:59 AM FINDINGS: Brain: See Cerebral ventricles finding. Cerebral ventricles: The ventricles are slit-like however this was also apparent on the 09/05/2022 CT. There is either fat or air in the 3rd ventricle which was not apparent on the prior exam series 3, image 31 -33. There appears to be diffuse low density in the cerebral hemispheric white matter which is also stable in comparison the prior exam. No definite acute cortical infarction or intracranial hemorrhage or mass. Paranasal sinuses: Visualized sinuses are unremarkable. No fluid levels. Mastoid air cells: Visualized mastoid air cells are well aerated. Bones/joints: Suboccipital craniectomy. Soft tissues: Unremarkable. IMPRESSION: No acute cerebral infarction or intracranial hemorrhage. There appears to be air in the region of 3rd ventricle-suggest clinical correlation with possible instrumentation such as lumbar puncture. Diffusely abnormal appearance of the cerebral hemispheric white matter which may be due to edema however it is unchanged in appearance in comparison to the 09/05/2022 CT. Persistent slit-like ventricles. ASSESSMENT: ASPECTS ([place] Stroke Program Early CT Score) is 10.
--- NOTE | 2023-04-21 19:13 | HMH.EDGENADL ---
Discharge Plan Disposition Patient Disposition: Home, Self-Care Chief Complaint: Neuro Symptoms/Deficit Prescriptions Prescriptions: No Action levothyroxine [Synthroid] 137 mcg tablet 137 mcg PO DAILY calcium carbonate [Calcium 500] 500 mg calcium (1,250 mg) tablet,chewable 1,000 mg PO BID fenofibrate nanocrystallized 145 mg tablet 145 mg PO DAILY dexlansoprazole 60 mg capsule,biphase delayed releas 60 mg PO DAILYP PRN (Reason: stomach) Nurtec ODT 75 mg tablet,disintegrating 75 mg PO DAILY Label Comments: DISSOLVE 1 TABLET BY MOUTH AT THE ONSET of a HEADACHE DIRECTED lorazepam 2 mg tablet 2 mg PO Q8H PRN (Reason: Anxiety) Label Comments: TAKE 1/2 TO 1 TABLET BY MOUTH EVERY 8 HOURS NEEDED FOR ANXIETY ipratropium-albuterol 0.5 mg-3 mg(2.5 mg base)/3 mL solution for nebulization 3 ml IH QID PRN (Reason: shortness of breath or wheezing) 90 Days Qty: 270 3RF albuterol sulfate 90 mcg/actuation HFA aerosol inhaler 2 inh inhalation Q6H PRN (Reason: shortness of breath or wheezing) 90 Days Qty: 8.5 1RF bumetanide 1 mg tablet 2 mg PO DAILY Qty: 180 3RF Rx Instructions: TAKE ONE TABLET BY MOUTH DAILY NEEDED FOR EDEMA carvedilol [Coreg] 6.25 mg tablet 6.25 mg PO BID Qty: 60 3RF Rx Instructions: must administer with a meal/food hydrocortisone 5 mg tablet 5 mg PO BID Label Comments: TAKE TWO TABLETS BY MOUTH EVERY MORNING AND TAKE ONE TABLET in THE afternoon --TAKE WITH FOOD-- promethazine 25 mg Tablet 25 mg PO Q6H PRN (Reason: Nausea And Vomiting) methocarbamol 750 mg tablet 750 mg PO TID Qty: 90 2RF gabapentin 400 mg capsule 400 mg PO TID gabapentin 400 mg capsule 400 mg PO TID Entresto 24-26 mg tablet 1 tab PO BID Dulera 50-5 mcg/actuation HFA aerosol inhaler 2 puff inhalation Q12H methocarbamol 1,000 mg tablet 1,000 mg PO TID bupivacaine (PF) 2.5 MG/ML solution 1.3 mg IT CONT Rx Instructions: medication delivered via intrathecal pain pump. actual concentration is 5mg/ml. total volume of pump is 20ml hydromorphone (PF) 1 MG/ML syringe 2.6 mg IT CONT Rx Instructions: medication delivered via intrathecal pain pump. actual concentration 10mg/ml. total volume of pump is 20ml Referrals Follow up/Referrals: Provider,ReferralMD [Referring] - See instructions Clinical Impressions Clinical Impression: Word finding difficulty Instructions Patient Instructions: DI for Dysarthria Discharge ED Provider: Cecily Stock General Adult HPI <Cecily Stock MD - Last Filed: 04/21/23 19:25> General Chief complaint: Neuro Symptoms/Deficit Stated complaint: NEURO Time Seen by Provider: 04/21/23 19:13 Mode of Arrival: Wheelchair Source of Information: Patient Limitations: No Limitations Description of Symptoms (Recalled from ER Triage Doc. by RN): pt to the ED with changes in speech x 3 days. pt reports episodes where her tongue has been making random spontaneous movements out of her control while trying to speak. she also reports moments of expressive aphasia where she knows what shes trying to say but cant get her words. History of Present Illness HPI narrative: 52-year-old female presenting with word finding difficulty this began 3 days ago has been intermittent. She states that her tongue will move randomly from side to side while she is try to talk and could not get the words out that she wants to get out. This is intermittent and not constant. She denies any numbness weakness tingling in upper or lower extremities denies any changes in vision or coordination. No pain anywhere. She has a history of Chiari malformation is multiple neurosurgery in the past. Related Data Home Medications Medication Instructions Recorded Confirmed levothyroxine 137 mcg tablet 137 mcg PO DAILY hypothyroidism 04/12/18 04/20/23 (Synthroid) dexlansoprazole
--- NOTE | 2023-04-21 19:15 | XR_ITS ---
PROCEDURE INFORMATION: Exam: XR Chest Exam date and time: 04/21/2023 7:28 PM Age: 52 years old Clinical indication: Other: Generalized weakness TECHNIQUE: Imaging protocol: Radiologic exam of the chest. Views: 2 views. COMPARISON: CR XR CHEST 2V 04/15/2023 12:38 PM FINDINGS: Lungs: No lung consolidation. Pleural spaces: No pleural effusion is detected. Heart/Mediastinum: Cardiac size is not enlarged however there does appear to be pulmonary vascular congestion. Bones/joints: Cervical spine fusion hardware is again noted. IMPRESSION: Pulmonary vascular congestion appears improved in comparison to 04/15/2023 x-ray. No pleural effusions.
--- NOTE | 2023-04-21 19:22 | CT_ITS ---
PROCEDURE INFORMATION: Exam: CTA Neck With Contrast Exam date and time: 04/21/2023 8:06 PM Age: 52 years old Clinical indication: Speech disturbance; Prior surgery; Surgery date: 6+ months; Surgery type: Brain, cervical spine; Additional info: Difficulty speaking TECHNIQUE: Imaging protocol: Computed tomographic angiography of the neck with contrast. 3D rendering (Not supervised by radiologist): MIP and/or 3D reconstructed images were created by the technologist. Radiation optimization: All CT scans at this facility use at least one of these dose optimization techniques: automated exposure control; mA and/or kV adjustment per patient size (includes targeted exams where dose is matched to clinical indication); or iterative reconstruction. Contrast material: ISOVUE; Contrast volume: 100 ml; Contrast route: INTRAVENOUS (IV); REPORTING DATA: Count of CT and Cardiac NM exams in prior 12 months: This patient has received 5 known CTs and 0 known cardiac nuclear medicine studies in the 12 months prior to the current study. COMPARISON: CT ANGIO NECK 09/05/2022 11:02 AM FINDINGS: Right common carotid artery: No stenosis. No dissection or occlusion. Right internal carotid artery: No stenosis of the extracranial segment. No dissection or occlusion. Right external carotid artery: No occlusion or stenosis of the origin. Left common carotid artery: No stenosis. No dissection or occlusion. Left internal carotid artery: No stenosis of the extracranial segment. No dissection or occlusion. Left external carotid artery: No occlusion or stenosis of the origin. Right vertebral artery: No stenosis. No dissection or occlusion. Left vertebral artery: No stenosis. No dissection or occlusion. Soft tissues: Postoperative findings as below. Bones/joints: There is an acute change in angulation at the C3-C4 level with marked disc space narrowing and endplate degeneration. Hardware fusion is seen at C5 through C7 levels. The appearance is unchanged in comparison to the 09/05/2022 CT. There has been posterior decompression of the cervical spinal canal and suboccipital craniectomy. IMPRESSION: No significant stenoses of the internal carotid arteries by NASCET criteria. REFERENCES: NASCET CRITERIA. The degree of stenosis in the cervical segment of the internal carotid artery is based on NASCET criteria. Normal is no stenosis. Mild is less than 50% stenosis. Moderate is 50-69% stenosis. Severe is 70% to 99% stenosis. Total occlusion is no detectable patent lumen.
--- NOTE | 2023-04-21 19:22 | CT_ITS ---
PROCEDURE INFORMATION: Exam: CTA Head With Contrast, Arteriography Exam date and time: 04/21/2023 8:06 PM Age: 52 years old Clinical indication: Speech disturbance; Prior surgery; Surgery date: 6+ months; Surgery type: Brain and cervical spine; Additional info: Difficulty speaking TECHNIQUE: Imaging protocol: Computed tomographic angiography of the head with contrast. Exam focused on the arteries. 3D rendering (Not supervised by radiologist): MIP and/or 3D reconstructed images were created by the technologist. Radiation optimization: All CT scans at this facility use at least one of these dose optimization techniques: automated exposure control; mA and/or kV adjustment per patient size (includes targeted exams where dose is matched to clinical indication); or iterative reconstruction. Contrast material: ISOVUE; Contrast volume: 100 ml; Contrast route: INTRAVENOUS (IV); REPORTING DATA: Count of CT and Cardiac NM exams in prior 12 months: This patient has received 5 known CTs and 0 known cardiac nuclear medicine studies in the 12 months prior to the current study. COMPARISON: CT HEAD/BRAIN WO CON 04/21/2023 7:27 PM FINDINGS: ANTERIOR CIRCULATION: Right internal carotid artery: Intracranial segment is patent with no significant stenosis. No aneurysm. Right middle cerebral artery: No occlusion or significant stenosis. No aneurysm. Right anterior cerebral artery: No occlusion or significant stenosis. No aneurysm. Left internal carotid artery: Intracranial segment is patent with no significant stenosis. No aneurysm. Left middle cerebral artery: No occlusion or significant stenosis. No aneurysm. Left anterior cerebral artery: No occlusion or significant stenosis. No aneurysm. POSTERIOR CIRCULATION: Right vertebral artery: No occlusion or significant stenosis. No aneurysm. Left vertebral artery: No occlusion or significant stenosis. No aneurysm. Basilar artery: No occlusion or significant stenosis. No aneurysm. Right posterior cerebral artery: No occlusion or significant stenosis. No aneurysm. Left posterior cerebral artery: No occlusion or significant stenosis. No aneurysm. Brain: Please see accompanying head CT report. Air is again seen in the 3rd ventricle. Cerebral ventricles: No ventriculomegaly. Bones/joints: Suboccipital craniectomy. Soft tissues: Postoperative change. IMPRESSION: No large vessel stenosis or occlusion. Small volume of air in 3rd ventricle is again noted.
[2023-04-21 19:25] LABS: Chloride 98 mmol/L (98-107); Potassium 3.5 mmoL/L (3.5-5.1); Sodium 140 mmol/L (136-145)
[2023-04-21 19:26] LABS: Basophils % 0.4 % (0.1-2.0); Eosinophils # 0.1 K/mm3 (0.0-0.4); Eosinophils % 0.8 % (0.1-12.0); Hematocrit 39.5 % (37.0-47.0); Hemoglobin 12.7 g/dL (12.2-16.2); Lymphocytes # 1.7 K/mm3 (0.7-4.5); Lymphocytes % 21.3 % (10-50); Mean Corpuscular HGB Conc 32.2 g/dL (31.8-35.4); Mean Corpuscular Hemoglobin 28.7 pg (27.0-31.2); Mean Corpuscular Volume 89.2 fl (81-99); Mean Platelet Volume 9.2 fl (7.4-10.4); Monocytes # 0.4 K/mm3 (0.1-1.0); Monocytes % 5.1 % (1.7-9.3); Neutrophils # 5.6 K/mm3 (1.8-7.8); Neutrophils % 72.4 % (37.0-80.0); Platelet Count 218 K/mm3 (142-424); Red Blood Count 4.43 M/mm3 (4.20-5.40); Red Cell Distribution Width 14.8 % (11.5-17.5); White Blood Count 7.8 K/mm3 (4.8-10.8)
[2023-04-21 19:28] LABS: Alanine Aminotransferase 41 U/L (12-78); Albumin Level 4.6 g/dl (3.5-5.0); Albumin/Globulin Ratio 1.4 (1.1-1.8); Alkaline Phosphatase 67 U/L (38-126); Anion Gap 13.5 mEq/L (5-15); Aspartate Amino Transferase 52 U/L (14-36); Bilirubin,Total 0.3 mg/dl (0.2-1.3); Blood Urea Nitrogen 17 mg/dl (7-17); Calcium 9.7 mg/dl (8.4-10.2); Carbon Dioxide 32 mmol/L (22.0-30.0); Creatinine Clearance Estimated 75 mL/min (50-200); Estimated Glomerular Filt Rate 75 ml/min (>60); GFR (African American) 90 ML/MIN (>60); Globulin 3.2 g/dL (1.3-3.2); Glucose 145 mg/dl (74-100); Total Protein,Serum 7.8 g/dl (6.3-8.2)
[2023-04-21 20:03] LABS: Troponin I < 0.01 ng/ml (0.00-0.034)
--- NOTE | 2023-04-21 21:09 | PC.NURSE ---
Pt's came to nurses station asking for assistance with his . Pt c/o a light, but dark feeling inside and a numb, tingling sensation all over. Pt continues with vague c/o speech impairment and extremity tingling. All vital wnl at this time. updated on pt complaints. Labs and CT imaging within pt baseline.
--- NOTE | 2023-04-21 21:25 | PC.NURSE ---
Loli at bedside speaking with pt and pt's
[2023-04-21 21:28] VITALS: BP 141/68; PULSE 73; RESP 18; TEMP 36.7; O2SAT 98
== END 2023-04-21 22:06 | disposition home or self-care (01) ==
PROVIDERS: Emergency Provider Student in an Organized Health Care Education/Training Program; PCP Family Medicine
DX: R47.01 Aphasia (principal); R47.1 Dysarthria and anarthria; Q07.00 Arnold-Chiari syndrome without spina bifida or hydrocephalus; I11.0 Hypertensive heart disease with heart failure; I50.30 Unspecified diastolic (congestive) heart failure; E78.5 Hyperlipidemia, unspecified
CPT/HCPCS: 70450; 70496; 70498; 71046; 80053; 84484; 85025; 99285; Q9967

== ENCOUNTER 2023-04-24 08:00 | Emergency (ER) | payer OTHER, SELFPAY ==
[2023-04-24 08:02] VITALS: BP 135/69; PULSE 82; RESP 18; TEMP 36.6; O2SAT 93; BMI 44.6
--- NOTE | 2023-04-24 08:34 | EXP.UTC ---
Discharge Plan Disposition Patient Disposition: Home, Self-Care Condition: Good Prescriptions Prescriptions: New methylprednisolone 4 mg Tablets,Dose Pack 4 mg PO DIRECTED Qty: 21 0RF No Action levothyroxine [Synthroid] 137 mcg tablet 137 mcg PO DAILY calcium carbonate [Calcium 500] 500 mg calcium (1,250 mg) tablet,chewable 1,000 mg PO BID fenofibrate nanocrystallized 145 mg tablet 145 mg PO DAILY dexlansoprazole 60 mg capsule,biphase delayed releas 60 mg PO DAILYP PRN (Reason: stomach) Nurtec ODT 75 mg tablet,disintegrating 75 mg PO DAILY Label Comments: DISSOLVE 1 TABLET BY MOUTH AT THE ONSET of a HEADACHE DIRECTED lorazepam 2 mg tablet 2 mg PO Q8H PRN (Reason: Anxiety) Label Comments: TAKE 1/2 TO 1 TABLET BY MOUTH EVERY 8 HOURS NEEDED FOR ANXIETY ipratropium-albuterol 0.5 mg-3 mg(2.5 mg base)/3 mL solution for nebulization 3 ml IH QID PRN (Reason: shortness of breath or wheezing) 90 Days Qty: 270 3RF albuterol sulfate 90 mcg/actuation HFA aerosol inhaler 2 inh inhalation Q6H PRN (Reason: shortness of breath or wheezing) 90 Days Qty: 8.5 1RF bumetanide 1 mg tablet 2 mg PO DAILY Qty: 180 3RF Rx Instructions: TAKE ONE TABLET BY MOUTH DAILY NEEDED FOR EDEMA carvedilol [Coreg] 6.25 mg tablet 6.25 mg PO BID Qty: 60 3RF Rx Instructions: must administer with a meal/food hydrocortisone 5 mg tablet 5 mg PO BID Label Comments: TAKE TWO TABLETS BY MOUTH EVERY MORNING AND TAKE ONE TABLET in THE afternoon --TAKE WITH FOOD-- promethazine 25 mg Tablet 25 mg PO Q6H PRN (Reason: Nausea And Vomiting) methocarbamol 750 mg tablet 750 mg PO TID Qty: 90 2RF gabapentin 400 mg capsule 400 mg PO TID gabapentin 400 mg capsule 400 mg PO TID Entresto 24-26 mg tablet 1 tab PO BID Dulera 50-5 mcg/actuation HFA aerosol inhaler 2 puff inhalation Q12H methocarbamol 1,000 mg tablet 1,000 mg PO TID bupivacaine (PF) 2.5 MG/ML solution 1.3 mg IT CONT Rx Instructions: medication delivered via intrathecal pain pump. actual concentration is 5mg/ml. total volume of pump is 20ml hydromorphone (PF) 1 MG/ML syringe 2.6 mg IT CONT Rx Instructions: medication delivered via intrathecal pain pump. actual concentration 10mg/ml. total volume of pump is 20ml Referrals Follow up/Referrals: Gayla Galan MD [Primary Care Provider] - See instructions Activity Restrictions/Add. Instructions Additional Instructions/Restrictions: Drink plenty of fluids. Take tylenol for pain or fever. Take the medications as directed. Follow up with your regular doctor. GO TO THE ER FOR ANY WORSENING SYMPTOMS Don't start the oral steroids until tomorrow, since you had the shot here today. Clinical Impressions Clinical Impression: Fatigue Instructions Patient Instructions: DI for Fatigue, Dexamethasone Injection Discharge ED Provider: [place] Vargas [facility] [place] General Stated complaint: legs are swollen Mode of Arrival: Ambulatory Source of Information: Patient Limitations: No Limitations Time Seen by Provider: 04/24/23 08:34 Description of Symptoms (Recalled from Triage Doc. by RN): Patient complaint of swelling for a few weeks now and not being able to get enough to drink. HEENT Symptoms (Recalled from RN notes): No Resp Symptoms (Recalled from RN notes): No Skin Symptoms (Recalled from RN notes): Yes MS Symptoms (Recalled from RN notes): No Functional Status (Recalled from RN notes): wnl History of Present Illness Provider Complaint: She states that for the past couple of weeks she has had worsening fatigue, bilateral ankle edema, and malaise. Related Data Home Medications Medication Instructions Recorded Confirmed levothyroxine 137 mcg tablet 137 mcg PO DAILY hypothyroidism 04/12/18 04/20/23 (Synthroid) dexlansoprazole 60 mg 60 mg PO DAILYP
[2023-04-24 08:46] LABS: Apearance,Urine Clear (Clear); Bilirubin,Urine Negative (Negative); Blood, Urine Negative (Negative); Color,Urine Yellow (Yellow); Glucose,Urine (UA) Negative (Negative); Ketones,Urine Negative (Negative); Protein,Urine Negative (Negative); UTC Leukocyte Esterase,Urine Negative (Negative); UTC Nitrate,Urine Negative (Negative); Urobilinogen,Urine 0.2 EU/dl (0.2)
[2023-04-24 09:31] VITALS: BP 135/69; PULSE 82; RESP 18; TEMP 36.6; O2SAT 93
== END 2023-04-24 09:31 | disposition home or self-care (01) ==
PROVIDERS: Emergency Provider Nurse Practitioner Family; PCP Family Medicine
DX: R22.43 Localized swelling, mass and lump, lower limb, bilateral (principal); R53.83 Other fatigue; J45.909 Unspecified asthma, uncomplicated; I10 Essential (primary) hypertension; E78.5 Hyperlipidemia, unspecified; E03.9 Hypothyroidism, unspecified; E66.01 Morbid (severe) obesity due to excess calories
CPT/HCPCS: 81003; 96372; 99212; 99214; G0463

== ENCOUNTER → 2023-04-24 09:47 | Outpatient (CLI) | payer OTHER, SELFPAY ==
[2023-04-24 11:14] LABS: Anion Gap 13.2 mEq/L (5-15); Blood Urea Nitrogen 21 mg/dl (7-17); Calcium 9.5 mg/dl (8.4-10.2); Carbon Dioxide 32 mmol/L (22.0-30.0); Chloride 99 mmol/L (98-107); Estimated Glomerular Filt Rate 75 ml/min (>60); GFR (African American) 90 ML/MIN (>60); Glucose 104 mg/dl (74-100); Potassium 4.2 mmoL/L (3.5-5.1); Sodium 140 mmol/L (136-145)
== END ==
PROVIDERS: PCP Family Medicine; Visit Provider Nurse Practitioner Family
DX: R06.00 Dyspnea, unspecified (principal); I50.30 Unspecified diastolic (congestive) heart failure; E66.9 Obesity, unspecified
CPT/HCPCS: 36415; 80048

== ENCOUNTER → 2023-05-07 08:45 | Outpatient (CLI) | payer OTHER, SELFPAY | PROVIDERS: PCP Internal Medicine Pulmonary Disease; Visit Provider Physician Assistant | DX: R07.9 Chest pain, unspecified (principal); R00.2 Palpitations; I11.0 Hypertensive heart disease with heart failure; I50.30 Unspecified diastolic (congestive) heart failure; E78.49 Other hyperlipidemia; R60.9 Edema, unspecified | CPT/HCPCS: 93306; 94762 ==

== ENCOUNTER → 2023-05-12 14:51 | Outpatient (CLI) | payer OTHER, SELFPAY ==
[2023-05-12 15:51] LABS: Chloride 101 mmol/L (98-107); Potassium 4.2 mmoL/L (3.5-5.1); Sodium 140 mmol/L (136-145)
[2023-05-12 15:54] LABS: Anion Gap 11.2 mEq/L (5-15); Blood Urea Nitrogen 20 mg/dl (7-17); Carbon Dioxide 32 mmol/L (22.0-30.0); Estimated Glomerular Filt Rate 75 ml/min (>60); GFR (African American) 90 ML/MIN (>60)
[2023-05-12 15:55] LABS: Calcium 9.1 mg/dl (8.4-10.2); Glucose 90 mg/dl (74-100)
[2023-05-12 16:03] LABS: NT Pro Brain Natriuretic Pep. < 20.0 pg/mL (0-125)
== END ==
PROVIDERS: PCP Family Medicine; Visit Provider Physician Assistant
DX: R06.00 Dyspnea, unspecified (principal)
CPT/HCPCS: 36415; 80048; 83880

== ENCOUNTER → 2023-05-17 14:56 | Outpatient (POV) | payer OTHER, SELFPAY ==
--- NOTE | 2023-05-17 15:01 | EXP.PAIN.SOA ---
[facility] Pain Management SOAP Note Subjective:: Patient is a pleasant 52-year-old female who presents today for medication refill and follow-up.? We are currently treating the patient for degenerative disc disease of lumbar spine multilevels with lumbar radiculopathy symptoms, chronic pain.? Today she rates her pain a out of 10.? Patient denies any new trauma or injury.? Back in March she had recently had left foot surgery with Dr. Angulo. She does state that this continues to be a site of chronic pain along with her low back. She does describe this as an aching, throbbing sensation that is worse with increased activity or ambulation.? At our last visit she did complain of continued swelling and discoloration in her left lower extremity. Patient does also have a history of Raynaud's syndrome. She is currently managed with intrathecal Dilaudid 20 mg/mL with a daily dose of 3.75 mg/day.? Patient denies any side effects from this medication.? Patient has been prescribed gabapentin 600 mg 3 times a day and methocarbamol 1000 mg 3 times a day. Patient denies any side effects from these medications. She does have a history of multiple autoimmune disorders.? Her George is .? Its been reviewed Review of Systems: General: No recent weight changes, no fever, no sleep disturbances Respiratory: No cough, no shortness of air, no recurring pulmonary infections Cardiovascular/peripheral vascular: No chest pain, no palpitations,? no edema, no shortness of breath Gastrointestinal: No new onset incontinence, normal bowel movements reported Genitourinary: No new onset incontinence Musculoskeletal: Low back pain, left foot pain Psychiatric: [Normal mood/affect] Neurological: [Denies weakness in extremities], [denies balance issues] Objective:: Physical Exam: General: Alert and oriented x3, no acute distress, pleasant and cooperative Lungs: Respirations even and unlabored, symmetrical chest expansion Eyes: PERRL Musculoskeletal: Flexion and extension of lumbar [spine] somewhat guarded secondary to pain, [antalgic gait noted] Neurological: Speech clear, no gross sensory deficit Assessment:: Degenerative disc disease of lumbar spine multilevels with lumbar radiculopathy symptoms, chronic pain syndrome, left foot pain Plan:: Patient continues to have significant pain at multiple locations. I will refill the patient's [facility] Disclaimer: The information contained in this section may have been updated after the patient was seen, as this information can be updated by other users. Medical History Abdominal bloating Abnormal computerized axial tomography of chest Asthma Chest pain Dark urine Daytime somnolence Diastolic congestive heart failure Dyspnea on exertion Edema Family history of asthma Family history of atrial fibrillation Follow-up exam Gastroparesis History of 2019 novel coronavirus disease (COVID-19) History of 2019 novel coronavirus disease (COVID-19) History of environmental allergies HLD (hyperlipidemia) HTN (hypertension) Hypothyroid ILD (interstitial lung disease) Implantable intrathecal infusion pump present Moderate persistent asthma Morbid obesity due to excess calories Nocturnal hypoxemia Nocturnal hypoxia Palpitations Pelvic pressure in female Pulmonary fibrosis, unspecified Thickened endometrium Surgical History H/O brain surgery H/O myomectomy History of cardiac cath History of cervical discectomy History of section History of colonoscopy History of esophagogastroduodenoscopy (EGD) History of foot surgery History of surgery pain pump placement History of tubal ligation Hx of cholecystectomy Hx of fusion of cervical spine Status post lumbar spine surgery for decompression of spinal cord Family History Grandmother COPD (chronic obstructive pulmonary disease) Asthma
[2023-05-17 15:32] VITALS: BP 113/53; PULSE 68; RESP 20; BMI 44.1
--- NOTE | 2023-05-17 15:40 | EXP.PAIN.PRO ---
Procedure Date: 05/17/23 Time: 15:40 Anesthesiologist:: Cristela Meyer APRN Complications:: None Pre-procedure Diagnosis:: Degenerative disc disease of lumbar spine with lumbar radiculopathy symptoms, chronic pain, CRPS left lower limb Post-procedure Diagnosis:: Same Indications for Procedure:: Patient is a pleasant 52-year-old female who presents today for medication refill and follow-up.? We are currently treating the patient for degenerative disc disease of lumbar spine multilevels with lumbar radiculopathy symptoms, chronic pain.? Today she rates her pain a 9 out of 10. She does states she had at least 50% improvement following this injection lasting approximately 1 month. She does feel like she is back at her baseline during today's visit. Previously when she initially had the injection she states she was able to increase her activity with decreased pain symptoms and felt more functional. Patient denies any new trauma or injury.? Back in March she had left foot surgery with Dr. Angulo. She does state that this continues to be a site of chronic pain along with her low back and legs. She does describe this as an aching, throbbing sensation that is worse with increased activity or ambulation.? She does state the pain interferes with her ability perform activities of daily living such as cooking and cleaning. At our last visit she did complain of continued swelling and discoloration in her left lower extremity and she states this continues to be an issue. Patient does also have a history of Raynaud's syndrome. She is currently managed with intrathecal Dilaudid 20 mg/mL with a daily dose of 3.75 mg/day and bupivacaine 8 mg/mL with a daily dose of 1.652 mg/day.? Patient denies any side effects from this medication.? Patient has been prescribed gabapentin 600 mg 3 times a day and methocarbamol 1000 mg 3 times a day. Patient denies any side effects from these medications. She does have a history of multiple autoimmune disorders.? Her George is [id number].? Its been reviewed and appropriate. Physical Exam: General: Alert and oriented x3, no acute distress, pleasant and cooperative Lungs: Respirations even and unlabored, symmetrical chest expansion Eyes: PERRL Musculoskeletal: Flexion and extension of lumbar [spine] somewhat guarded secondary to pain, [antalgic gait noted] Neurological: Speech clear, no gross sensory deficit Procedure Details:: Informed consent was obtained and the risk and benefits of the procedure were explained to the patient. Patient was taken to the procedure room where noninvasive monitoring was placed including noninvasive blood pressure cuff and pulse oximeter. Patient's pump was interrogated and was reprogrammed to Dilaudid 4.13 mg/day and bupivacaine 1.652 mg/day. The patient tolerated the procedure well with no complications. Plan and Disposition:: Patient continues to experience significant pain in her low back and legs. Patient did have limited range of motion of the lumbar spine during today's visit. I have discussed with the patient that she may benefit from repeat lumbar epidural steroid injection. Risk and benefits were discussed with the patient and she would like to proceed forward with this plan of care. Patient is not on any blood thinners. I will also refill the patient's gabapentin 600 mg 3 times a day and change her methocarbamol 1000 mg to 2 times a day and and tizanidine 6 mg at bedtime and provide a 1 month supply of these medications. Patient did have approximately 50% improvement for over 1 month with her last epidural. Patient will be scheduled for an LESI L4-L5. Patient has been instructed to contact the clinic with any concerns before the next appointment. Dr. Boyce has reviewed this note and agrees with this plan of care. This note was dictated using voice recognition software and make contain errors or omissions. -- It Is medically necessary for this patient to continue to have their intrathec
== END | disposition home or self-care (01) ==
PROVIDERS: Visit Provider Nurse Practitioner Family
DX: M51.16 Intervertebral disc disorders with radiculopathy, lumbar region (principal); G89.29 Other chronic pain; G90.522 Complex regional pain syndrome I of left lower limb
CPT/HCPCS: 62368; 99212; G0463

== ENCOUNTER → 2023-05-17 15:55 | Outpatient (CLI) | payer OTHER, SELFPAY ==
[2023-05-17 17:54] LABS: Basophils % 0.4 % (0.1-2.0); Eosinophils # 0.1 K/mm3 (0.0-0.4); Eosinophils % 2.7 % (0.1-12.0); Hematocrit 40.4 % (37.0-47.0); Hemoglobin 12.9 g/dL (12.2-16.2); Lymphocytes # 1.6 K/mm3 (0.7-4.5); Lymphocytes % 32.4 % (10-50); Mean Corpuscular Hemoglobin 28.7 pg (27.0-31.2); Mean Corpuscular Volume 89.7 fl (81-99); Mean Platelet Volume 9.6 fl (7.4-10.4); Monocytes # 0.4 K/mm3 (0.1-1.0); Neutrophils # 2.9 K/mm3 (1.8-7.8); Neutrophils % 57.6 % (37.0-80.0); Platelet Count 186 K/mm3 (142-424); Red Cell Distribution Width 14.8 % (11.5-17.5)
[2023-05-17 19:18] LABS: Alanine Aminotransferase 41 U/L (12-78); Albumin Level 4.6 g/dl (3.5-5.0); Albumin/Globulin Ratio 1.8 (1.1-1.8); Alkaline Phosphatase 75 U/L (38-126); Anion Gap 14.3 mEq/L (5-15); Aspartate Amino Transferase 40 U/L (14-36); Bilirubin,Total 0.3 mg/dl (0.2-1.3); Blood Urea Nitrogen 21 mg/dl (7-17); Calcium 9.4 mg/dl (8.4-10.2); Carbon Dioxide 31 mmol/L (22.0-30.0); Chloride 100 mmol/L (98-107); Creatine Kinase 114 U/L (30-135); Estimated Glomerular Filt Rate 87 ml/min (>60); GFR (African American) 106 ML/MIN (>60); Globulin 2.5 g/dL (1.3-3.2); Glucose 86 mg/dl (74-100); Potassium 4.3 mmoL/L (3.5-5.1); Sodium 141 mmol/L (136-145); Total Protein,Serum 7.1 g/dl (6.3-8.2)
[2023-05-19 16:45] LABS: Aldolase 6.9 U/L (3.3-10.3)
[2023-05-21 16:13] LABS: Lupus Reflex Interpretation Comment: (.); PTT-LA 38.6 sec (0.0-43.5); dRVVT 45.7 sec (0.0-47.0)
== END ==
PROVIDERS: PCP Family Medicine; Visit Provider Internal Medicine Rheumatology
DX: I73.00 Raynaud's syndrome without gangrene (principal); R23.3 Spontaneous ecchymoses; M62.81 Muscle weakness (generalized); Z71.89 Other specified counseling
CPT/HCPCS: 36415; 80053; 81270; 82085; 82550; 85025; 85613

== ENCOUNTER → 2023-05-31 16:56 | Outpatient (CLI) | payer OTHER, SELFPAY ==
[2023-05-31 17:01] LABS: Microscopic, Urine URINE MICROSCOPIC (MICROSCOPIC)
[2023-05-31 17:57] LABS: Anion Gap 9.2 mEq/L (5-15); Blood Urea Nitrogen 17 mg/dl (7-17); Calcium 9.4 mg/dl (8.4-10.2); Carbon Dioxide 31 mmol/L (22.0-30.0); Chloride 105 mmol/L (98-107); Estimated Glomerular Filt Rate 75 ml/min (>60); GFR (African American) 90 ML/MIN (>60); Glucose 79 mg/dl (74-100); Magnesium 1.8 mg/dl (1.6-2.3); Potassium 4.2 mmoL/L (3.5-5.1); Sodium 141 mmol/L (136-145)
[2023-05-31 18:26] LABS: Appearance,Urine CLEAR (Clear); Bilirubin,Urine Negative (Negative); Blood, Urine Negative (Negative); Color,Urine YELLOW (Yellow); Glucose,Urine (UA) Negative (Negative); Ketones,Urine Negative (Negative); Leukocyte Esterase,Urine Negative (Negative); Nitrate,Urine Negative (Negative); Protein,Urine Negative (Negative); Urobilinogen,Urine 0.2 EU/dl (0.2)
[2023-05-31 20:05] LABS: Squamous Epithelial Cell,Urine Occasional #/hpf (0-5)
== END ==
PROVIDERS: Physician Assistant; PCP Family Medicine; Visit Provider Nurse Practitioner Family
DX: R06.09 Other forms of dyspnea (principal); R06.00 Dyspnea, unspecified; R00.2 Palpitations; I11.0 Hypertensive heart disease with heart failure; I50.30 Unspecified diastolic (congestive) heart failure; E78.49 Other hyperlipidemia; R82.998 Other abnormal findings in urine; Z82.49 Family history of ischemic heart disease and other diseases of the circulatory system
CPT/HCPCS: 36415; 80048; 81001; 83735

== ENCOUNTER 2023-06-01 11:56 | Day surgery (SDC) | payer OTHER, SELFPAY ==
[2023-06-01 12:05] VITALS: BP 91/60; PULSE 70; RESP 18; TEMP 36.6; O2SAT 90; BMI 43.2
--- NOTE | 2023-06-01 12:26 | EXP.PAIN.PRO ---
Procedure Date: 06/01/23 Time: 12:15 Anesthesiologist:: Otf Sherman CRNA Complications:: None Pre-procedure Diagnosis:: Degenerative disc disease lumbar spine multilevels. Lumbar radiculopathy. Chronic pain syndrome. Post-procedure Diagnosis:: Same. Indications for Procedure:: Patient is a 52-year-old female that comes our clinic today for lumbar epidural steroid injection at L4-5 level. Patient complaining of bilateral hip and leg radicular symptoms. Right greater than left. Patient also being managed with intrathecal Dilaudid 20 mg/mL a day at a rate of 3.75 mg/day and bupivacaine 8 mg/mL with a dose of 1.652 mg/day. Procedure Details:: Procedure: Lumbar epidural steroid injection under fluoroscopy Informed consent was obtained and the risks and benefits of the procedure were explained to the patient. The patient was taken to the procedure room and noninvasive monitors placed, including noninvasive blood pressure cuff and pulse oximeter. The back was viewed using C-arm Fluoroscopy and prepped using Chloraprep as a cleansing solution and the L4-L5 interspace was palpated. Skin and subcutaneous tissues were anesthetized using lidocaine 1.5% and a 25-gauge needle. After this, an 18-gauge Touhy epidural needle was placed into the L4-L5 interspace and advanced using fluoroscopic guidance and loss of resistance to air until the epidural space was encountered. After confirmation of needle placement in the epidural space, with dye, a solution containing normal saline, 3 mL and Depo-Medrol 80 mg were incrementally injected into the lumbar epidural space. The patient tolerated the procedure well with no complications. The patient was observed in the Pain Clinic and then discharged home neurologically intact. Plan and Disposition:: Patient was discharged without incident.
[2023-06-01 12:45] VITALS: BP 91/60; PULSE 70; RESP 18; O2SAT 90
== END 2023-06-01 12:45 | disposition home or self-care (01) ==
PROVIDERS: PCP Family Medicine; Visit Provider Nurse Anesthetist, Certified Registered
DX: M51.16 Intervertebral disc disorders with radiculopathy, lumbar region (principal); G89.4 Chronic pain syndrome
CPT/HCPCS: 62323; J1040

== ENCOUNTER 2023-06-15 11:35 | Day surgery (SDC) | payer OTHER, SELFPAY ==
[2023-06-15 11:40] VITALS: BP 128/70; PULSE 59; RESP 18; TEMP 36.4; O2SAT 93; BMI 42.7
[2023-06-15 11:45] VITALS: BP 134/75; PULSE 95; RESP 20; O2SAT 96
--- NOTE | 2023-06-15 11:53 | EXP.PAIN.PRO ---
Procedure Date: 06/15/23 Time: 11:40 Anesthesiologist:: Otf Sherman CRNA Complications:: None Pre-procedure Diagnosis:: Degenerative disc lumbar spine multilevels. Lumbar radiculopathy. Chronic pain syndrome. Cervical neck pain. Cervical radiculopathy. Post-procedure Diagnosis:: Same. Indications for Procedure:: Patient is a 52-year-old female that comes our clinic today for intrathecal pain pump interrogation and refill. Patient currently being managed with Dilaudid 20 mg/mL at 3.75 mg/day and bupivacaine 8 mg/mL at 1.652 mg/day. Patient doing quite well on her current settings. She does not report any side effects or complications with her current intrathecal pain pump management. Patient complaining of some increased posterior cervical neck pain. Patient reports having a cervical MRI done 2 years ago. I informed the patient I would find the MRI and review the results. Procedure Details:: Details of the procedure explained the patient. The patient taken the procedure room placed in the sitting position. The area over the pump was cleansed using chlorhexidine as a cleansing solution. The pump was interrogated. The pump was accessed with ease using a 2 and half inch 22-gauge needle. 4.5 mL of solution was withdrawn and discarded appropriately. The pump was then filled incrementally with 20 cc of a solution containing Dilaudid 20 mg/mL and bupivacaine 8 mg/mL. Patient tolerated procedure without difficulty. There were no complications. Plan and Disposition:: Patient was discharged without incident.
[2023-06-15 12:00] VITALS: BP 121/74; PULSE 59; RESP 18; O2SAT 99
[2023-06-15 18:11] LABS: Amphetamine/Metha Screen,Urine Negative ng/ml (<1000)
[2023-06-15 18:12] LABS: Barbiturates Screen,Urine Negative ng/ml (<200); Benzodiazepines Screen,Urine Negative ng/ml (<200)
[2023-06-15 18:13] LABS: Cannabinoid Screen,Urine Negative ng/ml (<50)
[2023-06-15 18:14] LABS: Cocaine Screen,Urine Negative ng/ml (<300); Methadone Screen,Urine Negative ng/ml (<300)
[2023-06-15 18:15] LABS: Opiate Screen,Urine Positive ng/ml (<300)
[2023-06-15 18:16] LABS: Phencyclidine Screen,Urine Negative ng/ml (<25)
[2023-06-22 12:06] LABS: Codeine Negative (Cutoff=100); Hydrocodone Negative (Cutoff=100); Hydromorphone Positive (.); Morphine Negative (Cutoff=100); Opiates Positive (.)
== END 2023-06-15 12:05 | disposition home or self-care (01) ==
PROVIDERS: Anesthesiology; PCP Family Medicine; Visit Provider Nurse Anesthetist, Certified Registered
DX: M51.16 Intervertebral disc disorders with radiculopathy, lumbar region (principal); G89.4 Chronic pain syndrome; M54.12 Radiculopathy, cervical region
CPT/HCPCS: 80305; 80361; 80365; 95991; G0480

== ENCOUNTER → 2023-06-25 13:41 | Outpatient (CLI) | payer OTHER, SELFPAY ==
--- NOTE | 2023-06-25 13:46 | XR_ITS ---
FINAL REPORT CLINICAL HISTORY: pain FINDINGS: LEFT ANKLE: Three views of the left ankle were obtained. There is no acute fracture or dislocation. The joint spaces and mortise are intact. There is no soft tissue abnormality. There is a plantar calcaneal spur and mild degenerative change. IMPRESSION: No acute bony abnormality. Reviewed, Interpreted and Dictated by Eddie Frost III, MD Transcribed by Cindy Owusu Authenticated and [facility]
== END ==
PROVIDERS: PCP Family Medicine; Visit Provider Podiatrist
DX: M25.572 Pain in left ankle and joints of left foot (principal)
CPT/HCPCS: 73610

== ENCOUNTER → 2023-06-28 14:13 | Outpatient (POV) | payer OTHER, SELFPAY ==
[2023-06-28 15:15] VITALS: BP 121/74; PULSE 69; RESP 18; O2SAT 97; BMI 44.0
--- NOTE | 2023-06-28 15:25 | EXP.PAIN.SOA ---
[facility] Pain Management SOAP Note Subjective:: Patient is a pleasant 52-year-old female who presents today for follow-up. We are currently treating the patient for degenerative disc disease of cervical and lumbar spine multilevels with cervical and lumbar radiculopathy symptoms, chronic pain, neck pain, status post cervical fusion.? Today she rates her pain a 8 out of 10. She denies any new trauma or injury. She denies any change location or type of pain she experiences. Patient does states she continues to have worsening neck pain with radiating symptoms of numbness and tingling and burning into her bilateral hands. Patient does describe her overall pain in her neck as an aching, throbbing sensation. She does also have chronic pain at her low back and neuropathy into her feet. She states she has recently had injections into her feet that did help with the burning sensations. Patient has had multiple injections in the past that have provided significant relief including a recent lumbar epidural. Patient is interested in getting an injection for her chronic neck pain as well. She does state the pain interferes with her ability perform activities of daily living such as cooking and cleaning. Patient states it has been a couple years since she had recent imaging. She does also state that she is scheduled for a MRI of her right thigh up at [place] in August and that this will be with IV sedation. Patient does have a history of autoimmune diseases including Raynaud's syndrome. She is currently managed with intrathecal Dilaudid 20 mg/mL with a daily dose of 4.13 mg/day and bupivacaine 8 mg/mL with a daily dose of 1.652 mg/day.? Patient denies any side effects from this medication.? Patient has been prescribed gabapentin 600 mg 3 times a day and methocarbamol 1000 mg 3 times a day. She does state that if possible she would like her gabapentin and the muscle relaxer increased. Her George is [id number].? Its been reviewed and appropriate. Review of Systems: General: No recent weight changes, no fever, no sleep disturbances Respiratory: No cough, no shortness of air, no recurring pulmonary infections Cardiovascular/peripheral vascular: No chest pain, no palpitations, no edema, no shortness of breath Gastrointestinal: No new onset incontinence, normal bowel movements reported Genitourinary: No new onset incontinence Musculoskeletal: Neck pain, bilateral arm numbness and tingling Psychiatric: [Normal mood/affect] Neurological: [Denies weakness in extremities], [denies balance issues] Objective:: Physical Exam: General: Alert and oriented x3, no acute distress, pleasant and cooperative Lungs: Respirations even and unlabored, symmetrical chest expansion Eyes: PERRL Musculoskeletal: Flexion and extension of cervical [spine] somewhat guarded secondary to pain, [antalgic gait noted] Neurological: Speech clear, no gross sensory deficit Assessment:: degenerative disc disease of cervical and lumbar spine multilevels with cervical and lumbar radiculopathy symptoms, chronic pain, neck pain, status post cervical fusion Plan:: Patient is experiencing significant pain in her neck with radiating symptoms to her upper extremities. Patient had limited range of motion of her cervical spine during today's visit. I have discussed with the patient that she may benefit from cervical epidural steroid injection. Risk and benefits were discussed with the patient and she would like to proceed forward with this plan of care. Patient is not on any blood thinners. I have also counseled the patient to discontinue all other muscle relaxers and I will send in a prescription of orphenadrine citrate 100 mg extended release twice a day and provide a 1 month supply of this medication. We will also send in a prescription refill of her gabapentin 600 mg twice daily and provide a 1 month supply of this medication. I have discussed with the patient that I will order x-ray imaging of her cervical spine as w
== END | disposition home or self-care (01) ==
PROVIDERS: PCP Family Medicine; Visit Provider Nurse Practitioner Family
DX: M50.10 Cervical disc disorder with radiculopathy, unspecified cervical region (principal); M51.16 Intervertebral disc disorders with radiculopathy, lumbar region; M96.1 Postlaminectomy syndrome, not elsewhere classified; G89.29 Other chronic pain
CPT/HCPCS: 99212; G0463

== ENCOUNTER → 2023-06-28 15:14 | Outpatient (CLI) | payer OTHER, SELFPAY ==
--- NOTE | 2023-06-28 15:31 | XR_ITS ---
FINAL REPORT CLINICAL HISTORY: NECK PAIN FINDINGS: CERVICAL SPINE Six views demonstrate no acute fracture. There is fusion from C5-C7. There are severe degenerative changes. There is a chronic fracture of C4. Kyphosis is centered on C4. There is 2 mm of anterolisthesis of C2 on 3 and C3 on 4. No significant neural foraminal narrowing is identified. IMPRESSION: Significant degenerative and postoperative changes as above. Reviewed, Interpreted and Dictated by Eddie Frost III, MD Transcribed by Sada Donnelly Authenticated and [facility]
== END ==
PROVIDERS: PCP Family Medicine; Visit Provider Anesthesiology
DX: M54.2 Cervicalgia (principal); R22.1 Localized swelling, mass and lump, neck
CPT/HCPCS: 72050

== ENCOUNTER 2023-07-09 10:23 | Emergency (ER) | payer OTHER, SELFPAY ==
[2023-07-09 10:25] VITALS: BP 143/74; PULSE 75; RESP 20; TEMP 36.9; O2SAT 96; BMI 43.2
--- NOTE | 2023-07-09 10:41 | EXP.UTC ---
Discharge Plan Disposition Patient Disposition: Home, Self-Care Condition: Good Prescriptions Prescriptions: New azithromycin [Zithromax Z-Felix] 250 mg tablet See Rx Instructions .ROUTE .COMPLEX 5 Days Qty: 6 0RF Rx Instructions: For 250 mg dose pack: take 500 mg today (day 1), then 250 mg for 4 days (days 2-5) methylprednisolone [Medrol (Felix)] 4 mg tablets,dose pack See Rx Instructions .Route .COMPLEX 6 Days Qty: 21 0RF Rx Instructions: taper pack; No Action levothyroxine [Synthroid] 137 mcg tablet 137 mcg PO DAILY calcium carbonate [Calcium 500] 500 mg calcium (1,250 mg) tablet,chewable 1,000 mg PO BID fenofibrate nanocrystallized 145 mg tablet 145 mg PO DAILY dexlansoprazole 60 mg capsule,biphase delayed releas 60 mg PO DAILYP PRN (Reason: stomach) Nurtec ODT 75 mg tablet,disintegrating 75 mg PO DAILY Patient Comments: DISSOLVE 1 TABLET BY MOUTH AT THE ONSET of a HEADACHE DIRECTED lorazepam 2 mg tablet 2 mg PO Q8H PRN (Reason: Anxiety) Patient Comments: TAKE 1/2 TO 1 TABLET BY MOUTH EVERY 8 HOURS NEEDED FOR ANXIETY ipratropium-albuterol 0.5 mg-3 mg(2.5 mg base)/3 mL solution for nebulization 3 ml IH QID PRN (Reason: shortness of breath or wheezing) 90 Days Qty: 270 3RF albuterol sulfate 90 mcg/actuation HFA aerosol inhaler 2 inh inhalation Q6H PRN (Reason: shortness of breath or wheezing) 90 Days Qty: 8.5 1RF bumetanide 1 mg tablet 2 mg PO DAILY Qty: 180 3RF Rx Instructions: TAKE ONE TABLET BY MOUTH DAILY NEEDED FOR EDEMA hydrocortisone 5 mg tablet 5 mg PO BID Patient Comments: TAKE TWO TABLETS BY MOUTH EVERY MORNING AND TAKE ONE TABLET in THE afternoon --TAKE WITH FOOD-- promethazine 25 mg Tablet 25 mg PO Q6H PRN (Reason: Nausea And Vomiting) methocarbamol 750 mg tablet 750 mg PO TID Qty: 90 2RF Dulera 50-5 mcg/actuation HFA aerosol inhaler 2 puff inhalation Q12H carvedilol 3.125 mg tablet 3.125 mg PO BID Rx Instructions: must administer with a meal/food Entresto 24-26 mg tablet 1 tab PO BID bupivacaine (PF) 2.5 MG/ML solution 1.3 mg IT CONT Rx Instructions: medication delivered via intrathecal pain pump. actual concentration is 5mg/ml. total volume of pump is 20ml hydromorphone (PF) 1 MG/ML syringe 2.6 mg IT CONT Rx Instructions: medication delivered via intrathecal pain pump. actual concentration 10mg/ml. total volume of pump is 20ml tizanidine 6 mg capsule 6 mg PO HS PRN (Reason: muscle spasticity) Qty: 30 0RF methocarbamol 1,000 mg tablet 1,000 mg PO BID Qty: 60 0RF spironolactone [Aldactone] 25 mg tablet 25 mg PO BID methylprednisolone 4 mg tablets,dose pack 4 mg PO DIRECTED orphenadrine citrate 100 mg tablet extended release 100 mg PO BID Qty: 60 0RF gabapentin 600 mg tablet 600 mg PO TID Qty: 90 0RF Referrals Follow up/Referrals: Gayla Galan MD [Primary Care Provider] - See instructions Activity Restrictions/Add. Instructions Additional Instructions/Restrictions: *Monitor Temp, Over the counter Motrin or Tylenol as directed/as needed Tylenol every 4 hours and Motrin every 6 hours (as long as your family doctor has told you that you can take it) for fever or pain. and straight to ER if unable to lower temp less than 101.0 after medication given *Warm salt water gargles may help to soothe the throat *Throat Lozenges? *Warm fluids like tea with honey may help to soothe the throat? *Sleep elevated *Humidifier/Vaporizer Take medication as prescribed Your throat swab was sent for culture. Those results are typically sent to your primary care. Be sure to follow up in 2-3 days with your family doctor/primary care physician if no improvement so they can review those result and treat if necessary. If you don?t have a primary care doctor, I
[2023-07-09 10:54] LABS: UTC Strep Screen (Rapid) Negative (Negative)
[2023-07-09 11:04] VITALS: BP 143/74; PULSE 75; RESP 20; TEMP 36.9; O2SAT 96
== END 2023-07-09 11:06 | disposition home or self-care (01) ==
PROVIDERS: Emergency Provider Nurse Practitioner; PCP Family Medicine
DX: J06.9 Acute upper respiratory infection, unspecified (principal); I11.0 Hypertensive heart disease with heart failure; I50.30 Unspecified diastolic (congestive) heart failure; E78.5 Hyperlipidemia, unspecified; E03.9 Hypothyroidism, unspecified; J84.9 Interstitial pulmonary disease, unspecified; J45.40 Moderate persistent asthma, uncomplicated; J84.10 Pulmonary fibrosis, unspecified; E66.01 Morbid (severe) obesity due to excess calories; G47.19 Other hypersomnia
CPT/HCPCS: 87880; 99212; 99214; G0463

== ENCOUNTER 2023-07-29 08:00 | Emergency (ER) | payer OTHER, SELFPAY ==
[2023-07-29 08:10] VITALS: BP 134/85; PULSE 80; RESP 20; TEMP 36.7; O2SAT 98; BMI 40.3
--- NOTE | 2023-07-29 08:39 | EXP.UTC ---
Discharge Plan Disposition Patient Disposition: Home, Self-Care Condition: Good Prescriptions Prescriptions: New methylprednisolone [Medrol (Felix)] 4 mg tablets,dose pack See Rx Instructions .Route .COMPLEX 6 Days Qty: 21 0RF Rx Instructions: taper pack; No Action levothyroxine [Synthroid] 137 mcg tablet 137 mcg PO DAILY calcium carbonate [Calcium 500] 500 mg calcium (1,250 mg) tablet,chewable 1,000 mg PO BID fenofibrate nanocrystallized 145 mg tablet 145 mg PO DAILY dexlansoprazole 60 mg capsule,biphase delayed releas 60 mg PO DAILYP PRN (Reason: stomach) Nurtec ODT 75 mg tablet,disintegrating 75 mg PO DAILY Patient Comments: DISSOLVE 1 TABLET BY MOUTH AT THE ONSET of a HEADACHE DIRECTED lorazepam 2 mg tablet 2 mg PO Q8H PRN (Reason: Anxiety) Patient Comments: TAKE 1/2 TO 1 TABLET BY MOUTH EVERY 8 HOURS NEEDED FOR ANXIETY ipratropium-albuterol 0.5 mg-3 mg(2.5 mg base)/3 mL solution for nebulization 3 ml IH QID PRN (Reason: shortness of breath or wheezing) 90 Days Qty: 270 3RF albuterol sulfate 90 mcg/actuation HFA aerosol inhaler 2 inh inhalation Q6H PRN (Reason: shortness of breath or wheezing) 90 Days Qty: 8.5 1RF bumetanide 1 mg tablet 2 mg PO DAILY Qty: 180 3RF Rx Instructions: TAKE ONE TABLET BY MOUTH DAILY NEEDED FOR EDEMA hydrocortisone 5 mg tablet 5 mg PO BID Patient Comments: TAKE TWO TABLETS BY MOUTH EVERY MORNING AND TAKE ONE TABLET in THE afternoon --TAKE WITH FOOD-- promethazine 25 mg Tablet 25 mg PO Q6H PRN (Reason: Nausea And Vomiting) methocarbamol 750 mg tablet 750 mg PO TID Qty: 90 2RF Dulera 50-5 mcg/actuation HFA aerosol inhaler 2 puff inhalation Q12H carvedilol 3.125 mg tablet 3.125 mg PO BID Rx Instructions: must administer with a meal/food Entresto 24-26 mg tablet 1 tab PO BID azithromycin [Zithromax Z-Felix] 250 mg tablet See Rx Instructions .ROUTE .COMPLEX 5 Days Qty: 6 0RF Rx Instructions: For 250 mg dose pack: take 500 mg today (day 1), then 250 mg for 4 days (days 2-5) methylprednisolone [Medrol (Felix)] 4 mg tablets,dose pack See Rx Instructions .Route .COMPLEX 6 Days Qty: 21 0RF Rx Instructions: taper pack; bupivacaine (PF) 2.5 MG/ML solution 1.3 mg IT CONT Rx Instructions: medication delivered via intrathecal pain pump. actual concentration is 5mg/ml. total volume of pump is 20ml hydromorphone (PF) 1 MG/ML syringe 2.6 mg IT CONT Rx Instructions: medication delivered via intrathecal pain pump. actual concentration 10mg/ml. total volume of pump is 20ml tizanidine 6 mg capsule 6 mg PO HS PRN (Reason: muscle spasticity) Qty: 30 0RF methocarbamol 1,000 mg tablet 1,000 mg PO BID Qty: 60 0RF spironolactone [Aldactone] 25 mg tablet 25 mg PO BID methylprednisolone 4 mg tablets,dose pack 4 mg PO DIRECTED orphenadrine citrate 100 mg tablet extended release 100 mg PO BID Qty: 60 0RF gabapentin 600 mg tablet 600 mg PO TID Qty: 90 0RF Referrals Follow up/Referrals: Gayla Galan MD [Primary Care Provider] - See instructions Activity Restrictions/Add. Instructions Additional Instructions/Restrictions: Look and see what you are washing your hands in that may be irritating them Working hands lotion may help with dryness Follow up with Your Family Doctor and [facility] if needed Clinical Impressions Clinical Impression: Contact dermatitis Qualifiers: Contact dermatitis type: unspecified Contact dermatitis trigger: unspecified trigger Qualified Code(s): L25.9 - Unspecified contact dermatitis, unspecified cause Instructions Patient Instructions: Contact Dermatitis, DI for Contact Dermatitis Discharge ED Provider: Keila Mcintyre [facility] [place] General Stated complaint: legs swollen bruising, cuts on hands Mode of Arrival: Ambulatory
[2023-07-29 09:00] VITALS: BP 134/85; PULSE 80; RESP 20; TEMP 36.7; O2SAT 98
== END 2023-07-29 09:03 | disposition home or self-care (01) ==
PROVIDERS: Emergency Provider Nurse Practitioner; PCP Family Medicine
DX: L25.9 Unspecified contact dermatitis, unspecified cause (principal); R22.43 Localized swelling, mass and lump, lower limb, bilateral; I11.0 Hypertensive heart disease with heart failure; I50.30 Unspecified diastolic (congestive) heart failure; E03.9 Hypothyroidism, unspecified; J84.9 Interstitial pulmonary disease, unspecified; E78.5 Hyperlipidemia, unspecified; J84.112 Idiopathic pulmonary fibrosis; K31.84 Gastroparesis; E66.01 Morbid (severe) obesity due to excess calories
CPT/HCPCS: 99212; 99214; G0463

== ENCOUNTER → 2023-08-30 13:05 | Outpatient (CLI) | payer OTHER, SELFPAY ==
[2023-08-30 15:42] LABS: Alanine Aminotransferase 32 U/L (12-78); Albumin Level 4.1 g/dl (3.5-5.0); Albumin/Globulin Ratio 1.5 (1.1-1.8); Alkaline Phosphatase 53 U/L (38-126); Anion Gap 9.2 mEq/L (5-15); Aspartate Amino Transferase 27 U/L (14-36); Blood Urea Nitrogen 15 mg/dl (7-17); Calcium 9.2 mg/dl (8.4-10.2); Carbon Dioxide 33 mmol/L (22.0-30.0); Chloride 108 mmol/L (98-107); Estimated Glomerular Filt Rate 74 ml/min (>60); GFR (African American) 90 ML/MIN (>60); Globulin 2.7 g/dL (1.3-3.2); Glucose 175 mg/dl (74-100); Potassium 4.2 mmoL/L (3.5-5.1); Sodium 146 mmol/L (136-145); Total Protein,Serum 6.8 g/dl (6.3-8.2)
[2023-08-30 15:43] LABS: Bilirubin,Total < 0.1 mg/dl (0.2-1.3)
[2023-08-30 16:13] LABS: Thyroid Stimulating Hormone 0.22 uIU/mL (0.465-4.68)
[2023-09-11 09:49] LABS: Rheumatoid Factor IGA < 7 U (<7); Rheumatoid Factor IGM < 7 U (<7)
== END ==
PROVIDERS: Physician Assistant; PCP Family Medicine; Visit Provider Internal Medicine
DX: E03.8 Other specified hypothyroidism (principal); E06.3 Autoimmune thyroiditis; M79.671 Pain in right foot; M79.672 Pain in left foot
CPT/HCPCS: 36415; 80053; 84443; 86431

== ENCOUNTER 2023-09-05 17:13 | Emergency (ER) | payer OTHER, SELFPAY ==
[2023-09-05 17:25] VITALS: BP 140/80; PULSE 74; RESP 20; TEMP 37.1; O2SAT 95; BMI 44.9
[2023-09-05 17:34] VITALS: BP 140/80; PULSE 74; RESP 20; TEMP 37.1; O2SAT 95
--- NOTE | 2023-09-05 17:35 | EXP.UTC ---
Discharge Plan Disposition Patient Disposition: Still a Patient Condition: Good Prescriptions Prescriptions: New doxycycline monohydrate 100 mg capsule 100 mg PO BID 5 Days Qty: 10 0RF mupirocin 2 % ointment 1 applic topical TID 10 Days Qty: 22 0RF Rx Instructions: apply to cracked skin on right middle finger No Action levothyroxine [Synthroid] 137 mcg tablet 137 mcg PO DAILY calcium carbonate [Calcium 500] 500 mg calcium (1,250 mg) tablet,chewable 1,000 mg PO BID fenofibrate nanocrystallized 145 mg tablet 145 mg PO DAILY dexlansoprazole 60 mg capsule,biphase delayed releas 60 mg PO DAILYP PRN (Reason: stomach) Nurtec ODT 75 mg tablet,disintegrating 75 mg PO DAILY Patient Comments: DISSOLVE 1 TABLET BY MOUTH AT THE ONSET of a HEADACHE DIRECTED lorazepam 2 mg tablet 2 mg PO Q8H PRN (Reason: Anxiety) Patient Comments: TAKE 1/2 TO 1 TABLET BY MOUTH EVERY 8 HOURS NEEDED FOR ANXIETY ipratropium-albuterol 0.5 mg-3 mg(2.5 mg base)/3 mL solution for nebulization 3 ml IH QID PRN (Reason: shortness of breath or wheezing) 90 Days Qty: 270 3RF albuterol sulfate 90 mcg/actuation HFA aerosol inhaler 2 inh inhalation Q6H PRN (Reason: shortness of breath or wheezing) 90 Days Qty: 8.5 1RF bumetanide 1 mg tablet 2 mg PO DAILY Qty: 180 3RF Rx Instructions: TAKE ONE TABLET BY MOUTH DAILY NEEDED FOR EDEMA Dulera 50-5 mcg/actuation HFA aerosol inhaler 2 puff inhalation Q12H Qty: 13 3RF fluconazole [Diflucan] 150 mg tablet 150 mg PO ONCE Qty: 2 0RF Rx Instructions: may repeat second dose 72 hrs after first dose if symptoms persist hydrocortisone 5 mg tablet 5 mg PO BID Patient Comments: TAKE TWO TABLETS BY MOUTH EVERY MORNING AND TAKE ONE TABLET in THE afternoon --TAKE WITH FOOD-- promethazine 25 mg Tablet 25 mg PO Q6H PRN (Reason: Nausea And Vomiting) methocarbamol 750 mg tablet 750 mg PO TID Qty: 90 2RF Dulera 50-5 mcg/actuation HFA aerosol inhaler 2 puff inhalation Q12H carvedilol 3.125 mg tablet 3.125 mg PO BID Rx Instructions: must administer with a meal/food Entresto 24-26 mg tablet 1 tab PO BID azithromycin [Zithromax Z-Felix] 250 mg tablet See Rx Instructions .ROUTE .COMPLEX 5 Days Qty: 6 0RF Rx Instructions: For 250 mg dose pack: take 500 mg today (day 1), then 250 mg for 4 days (days 2-5) methylprednisolone [Medrol (Felix)] 4 mg tablets,dose pack See Rx Instructions .Route .COMPLEX 6 Days Qty: 21 0RF Rx Instructions: taper pack; bupivacaine (PF) 2.5 MG/ML solution 1.3 mg IT CONT Rx Instructions: medication delivered via intrathecal pain pump. actual concentration is 5mg/ml. total volume of pump is 20ml hydromorphone (PF) 1 MG/ML syringe 2.6 mg IT CONT Rx Instructions: medication delivered via intrathecal pain pump. actual concentration 10mg/ml. total volume of pump is 20ml tizanidine 6 mg capsule 6 mg PO HS PRN (Reason: muscle spasticity) Qty: 30 0RF methocarbamol 1,000 mg tablet 1,000 mg PO BID Qty: 60 0RF spironolactone [Aldactone] 25 mg tablet 25 mg PO BID methylprednisolone 4 mg tablets,dose pack 4 mg PO DIRECTED orphenadrine citrate 100 mg tablet extended release 100 mg PO BID Qty: 60 0RF gabapentin 600 mg tablet 600 mg PO TID Qty: 90 0RF gabapentin 600 mg tablet 600 mg PO TID Qty: 90 2RF diazepam 2 mg tablet 2 mg PO ONCE Qty: 1 0RF Rx Instructions: take 30minutes prior to MRI methylprednisolone [Medrol (Felix)] 4 mg tablets,dose pack See Rx Instructions .Route .COMPLEX 6 Days Qty: 21 0RF Rx Instructions: taper pack; Referrals Follow up/Referrals: Gayla Galan MD [Primary Care Provider] - See instructions Activity Restrictions/Add. Instructions Additional Instructions/Restrictions: *Start antibiotic(s) immediately an
== END 2023-09-05 17:52 | disposition still patient (30) ==
PROVIDERS: Emergency Provider Nurse Practitioner; PCP Family Medicine
DX: L03.011 Cellulitis of right finger (principal); J45.909 Unspecified asthma, uncomplicated; I11.0 Hypertensive heart disease with heart failure; I50.30 Unspecified diastolic (congestive) heart failure; E78.5 Hyperlipidemia, unspecified; E03.9 Hypothyroidism, unspecified; E66.01 Morbid (severe) obesity due to excess calories; J84.10 Pulmonary fibrosis, unspecified
CPT/HCPCS: 99212; 99214; G0463

== ENCOUNTER 2023-09-07 12:34 | Day surgery (SDC) | payer OTHER, SELFPAY ==
[2023-09-07 12:42] VITALS: BP 139/92; BP 151/88; PULSE 69; PULSE 71; RESP 20; TEMP 36.7; O2SAT 100; BMI 44.6
[2023-09-07 12:48] VITALS: BP 138/78; PULSE 71; RESP 20; O2SAT 94
--- NOTE | 2023-09-07 13:03 | EXP.PAIN.PRO ---
Procedure Date: 09/07/23 Time: 12:50 Anesthesiologist:: Oft Sherman CRNA Complications:: None Pre-procedure Diagnosis:: Degenerative disc lumbar spine multilevels. Lumbar radiculopathy. Chronic pain syndrome. Cervical neck pain. Cervical radiculopathy. Post-procedure Diagnosis:: Same. Indications for Procedure:: Patient is a very pleasant 53-year-old female comes our clinic today for intrathecal pain pump interrogation refill. Patient currently being managed with hydromorphone 20 mg/mL at rate of 4.1300 mg today. Also bupivacaine 8 mg/mL at a rate of 1.6520 mg/day. Patient does not report any side effects or complications with her current management. Procedure Details:: Details of the procedure explained to the patient. The patient taken to procedure room placed in the sitting position. The area of the pump was cleansed using chlorhexidine as a cleansing solution. The pump was interrogated. The pump was accessed with ease using a 22-gauge inch and half needle. 2 mL of solution was withdrawn and discarded appropriate. The pump was then filled incrementally with 20 cc of a solution containing hydromorphone 20 mg/mL and bupivacaine 8 mg/mL. No change in the rate. Patient tolerated procedure without difficulty. There are no complications. Plan and Disposition:: Patient was discharged without incident.
== END 2023-09-07 13:03 | disposition home or self-care (01) ==
LOC: SC.PAINP 12:35
PROVIDERS: PCP Family Medicine; Visit Provider Nurse Anesthetist, Certified Registered
DX: M51.16 Intervertebral disc disorders with radiculopathy, lumbar region (principal); G89.4 Chronic pain syndrome; M54.12 Radiculopathy, cervical region; Z97.8 Presence of other specified devices
CPT/HCPCS: 95991

== ENCOUNTER → 2023-09-21 13:56 | Outpatient (CLI) | payer OTHER, SELFPAY ==
--- NOTE | 2023-09-21 13:57 | US_ITS ---
PROCEDURE INFORMATION: Exam: US Right Breast, Complete Exam date and time: 09/21/2023 2:28 PM Age: 53 years old Clinical indication: Breast pain; Bilateral TECHNIQUE: Imaging protocol: Complete ultrasound of all four quadrants of the right breast and the retroareolar regions, including ultrasound of the axilla when performed. COMPARISON: US BREAST RT COMPLETE 07/17/2022 3:08 PM FINDINGS: Breast: Anechoic circumscribed benign appearing structures with posterior acoustic enhancement consistent with cysts are present as follows: 0.3 cm 1 o'clock right breast 7 cm from the nipple 0.4 cm right 10 o'clock 6 cm from the nipple 1.0 x 1.0 x 0.6 cm right 10 o'clock 7 cm from the nipple Only normal glandular structures are present in the regions assessed No suspicious solid or cystic mass is present. No architectural distortion or shadowing is present. No axillary adenopathy is present. IMPRESSION: No sonographic evidence of malignancy. Annual mammographic screening is recommended unless otherwise clinically indicated. ASSESSMENT: BI-RADS category 2: Benign
--- NOTE | 2023-09-21 13:57 | US_ITS ---
PROCEDURE INFORMATION: Exam: US Left Breast, Complete Exam date and time: 09/21/2023 2:49 PM Age: 53 years old Clinical indication: Breast pain; Bilateral TECHNIQUE: Imaging protocol: Complete ultrasound of all four quadrants of the left breast and the retroareolar regions, including ultrasound of the axilla when performed. COMPARISON: US BREAST LT COMPLETE 07/17/2022 3:16 PM FINDINGS: Breast: 4 x 2 x 3 mm minimally complicated cysts in the left upper outer quadrant is of incidental note Only normal glandular structures are present in the regions assessed No suspicious solid or cystic mass is present. No architectural distortion or shadowing is present. No axillary adenopathy is present. IMPRESSION: No sonographic evidence of malignancy. Annual mammographic screening is recommended unless otherwise clinically indicated. ASSESSMENT: BI-RADS category 2: Benign
--- NOTE | 2023-09-21 14:01 | CT_ITS ---
FINAL REPORT CLINICAL HISTORY: CHEST PAIN, SOB COMPARISON: December 2022 FINDINGS: Axial images were obtained from the lung apex to the mid abdomen by computed tomography. Coronal reformatted images were obtained. This study was performed with techniques to keep radiation doses as low as reasonably achievable, (ALARA). Individualized dose reduction techniques using automated exposure control or adjustment of mA and/or kV according to the patient's size were employed. There is no axillary adenopathy. There is no hilar or mediastinal adenopathy. Heart size is normal. There is no pericardial or pleural effusion. Limited images of the upper abdomen demonstrate changes from cholecystectomy. There are small nonobstructing left renal stones. There is bilateral scarring. No suspicious infiltrate or nodule is identified. Postoperative changes are seen in the lower cervical spine. IMPRESSION: No acute process. Reviewed, Interpreted and Dictated by Eddie Frost III, MD Transcribed by Ganesh Hernandez Authenticated and . [facility]
== END ==
PROVIDERS: PCP Family Medicine; Visit Provider Obstetrics & Gynecology
DX: N64.4 Mastodynia (principal); R07.9 Chest pain, unspecified; R06.02 Shortness of breath
CPT/HCPCS: 71250; 76641

== ENCOUNTER 2023-10-05 08:35 | Day surgery (SDC) | payer OTHER, SELFPAY ==
[2023-10-05 08:47] VITALS: BP 131/78; PULSE 68; RESP 16; TEMP 36.6; O2SAT 90; BMI 43.5
[2023-10-05 09:07] VITALS: BP 162/55; PULSE 69; RESP 18; O2SAT 92
[2023-10-05 09:16] VITALS: BP 162/55; PULSE 69; RESP 18; O2SAT 92
[2023-10-05 10:03] VITALS: BP 139/55; PULSE 63; RESP 16; O2SAT 93
--- NOTE | 2023-10-05 10:26 | EXP.PAIN.PRO ---
Procedure Date: 10/05/23 Time: 09:30 Anesthesiologist:: Otf Sherman CRNA Complications:: None Pre-procedure Diagnosis:: Degenerative disc lumbar spine multiple levels. Lumbar radiculopathy. Lumbar postlaminectomy syndrome. Degenerative disc cervical spine. Cervical radiculopathy. Post-procedure Diagnosis:: Same. Indications for Procedure:: Patient comes to the clinic today for intrathecal pain pump emptying. Patient having cervical MRI today. She will return post MRI for intrathecal pain pump refill. Procedure Details:: Details of the procedure explained to the patient. The patient taken to procedure room placed in the sitting position. The area over the pump was cleansed using chlorhexidine's cleansing solution. The pump was interrogated. 13.5 mL of solution was withdrawn from the pump. Patient went for MRI. However, unsuccessful due to the fact patient could not lie supine for duration of imaging. Discussed in detail with the patient regarding the need to have heavy sedation and/or general anesthesia for cervical MRI. We discussed patient going to for cervical MRI. The pump was accessed with ease using a 22-gauge inch and half needle. The pump was then filled with the existing medication of hydromorphone 20 mg/mL and bupivacaine 8 mg/mL. 13.5 mL of solution was injected into the pump with ease. Patient reporting increased pain in the low back as well as bilateral hip and legs. We will increase the pain pump rate today. Her new rate will be hydromorphone 4.5430 mg/day. Bupivacaine 1.8172 mg/day. Patient tolerated procedure without difficulty. No complications. Plan and Disposition:: Patient was discharged without incident.
== END 2023-10-05 10:03 | disposition home or self-care (01) ==
PROVIDERS: PCP Family Medicine; Visit Provider Nurse Anesthetist, Certified Registered
DX: M51.16 Intervertebral disc disorders with radiculopathy, lumbar region (principal); M96.1 Postlaminectomy syndrome, not elsewhere classified; M50.10 Cervical disc disorder with radiculopathy, unspecified cervical region; Z97.8 Presence of other specified devices
CPT/HCPCS: 95991

== ENCOUNTER → 2023-10-26 15:11 | Outpatient (CLI) | payer OTHER, SELFPAY ==
[2023-10-26 16:38] VITALS: BMI 43.0
== END ==
PROVIDERS: PCP Family Medicine; Visit Provider Family Medicine
DX: E66.9 Obesity, unspecified (principal); Z71.3 Dietary counseling and surveillance
CPT/HCPCS: 97802

== ENCOUNTER → 2023-11-01 14:34 | Outpatient (POV) | payer OTHER, SELFPAY ==
[2023-11-01 14:50] VITALS: BP 113/58; PULSE 72; RESP 18; O2SAT 95; BMI 44.0
--- NOTE | 2023-11-01 15:04 | EXP.PAIN.PRO ---
Procedure Date: 11/01/23 Time: 15:04 Anesthesiologist:: Cristela Meyer APRN Complications:: None Pre-procedure Diagnosis:: degenerative disc disease of cervical and lumbar spine multilevels with cervical and lumbar radiculopathy symptoms, chronic pain, neck pain, status post cervical fusion, chronic pain syndrome Post-procedure Diagnosis:: Same Indications for Procedure:: Patient is a pleasant 53-year-old female who presents today for follow-up and intrathecal adjustment and reprogram. We are currently treating the patient for degenerative disc disease of cervical and lumbar spine multilevels with cervical and lumbar radiculopathy symptoms, chronic pain, neck pain, status post cervical fusion.? Today she rates her pain a 9 out of 10. She denies any new trauma or injury. She states that with the cold weather she continues to have worsening pain in her neck and her hands. Patient describes this as a constant aching, throbbing sensation. She states the pain and numbness and tingling does interfere with the ability to perform activities of daily living such as cooking and cleaning. 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 She states with the constant neck pain and limited range of motion she is very limited what she can and cannot do. She was previously submitted for IV sedation for MRI however insurance denied it. Patient did end up going for a MRI without sedation however she was unable to tolerate the positioning because it cut off oxygen. She states her hands turn blue and then she had some trouble breathing. Patient states that they then were recommending that she have IV sedation for future for the MRI. Patient does have a history of autoimmune diseases including Raynaud's syndrome. She is currently managed with intrathecal Dilaudid 20 mg/mL with a daily dose of 4.543 mg/day and bupivacaine 8 mg/mL with a daily dose of 1.8172 mg/day.? Patient denies any side effects from this medication.? Patient has been prescribed gabapentin 600 mg 3 times a day and orphenadrine citrate 100 mg twice daily. Patient is prescribed compounding cream however she states she has not tried this on her hands. Patient was recently given a prescription of oxycodone 5 mg daily with 10 tablets from an outside provider. Patient is unable to tolerate physical therapy due to her comorbidities and difficulty with certain positioning. Her George has been reviewed and appropriate. Physical Exam: General: Alert and oriented x3, no acute distress, pleasant and cooperative Lungs: Respirations even and unlabored, symmetrical chest expansion Eyes: PERRL Musculoskeletal: Flexion and extension of cervical [spine] somewhat guarded secondary to pain, [antalgic gait noted] Neurological: Speech clear, no gross sensory deficit Procedure Details:: Informed consent was obtained and the risk and benefits of the procedure were explained to the patient. Patient was taken to the procedure room where noninvasive monitoring was placed including noninvasive blood pressure cuff and pulse oximeter. Patient's pump was interrogated and was reprogrammed to Dilaudid 4.77mg/day and bupivacaine 1.908 mg/day. The patient tolerated the procedure well with no complications. Plan and Disposition:: Patient tolerated her intrathecal increase with no complications. We did attempt to set up her PTM bolus device during today's visit with up to 4 boluses in a 24-hour however we were unable to connect to her device. We will contact the [facility] home refill nurse to set up the boluses. Patient continues to experience significant pain in her neck and radiating into her bilateral arms and hands with numbness and tingling. I have discussed with the patient that she may benefit from cervical epidural steroid injection. Risk and benefits were discussed with the patient and she would like to proceed forward with this plan of care. Patient will be scheduled for a HERACLIO C6-C7 under fluoroscopic guidance. I have also
== END | disposition home or self-care (01) ==
PROVIDERS: PCP Family Medicine; Visit Provider Nurse Practitioner Family
DX: M50.123 Cervical disc disorder at C6-C7 level with radiculopathy (principal); M51.16 Intervertebral disc disorders with radiculopathy, lumbar region; G89.4 Chronic pain syndrome; M43.22 Fusion of spine, cervical region; Z97.8 Presence of other specified devices
CPT/HCPCS: 62368; 99212; G0463

== ENCOUNTER 2023-11-18 15:30 | Outpatient (RCR) | payer OTHER, SELFPAY | END 2023-11-18 16:45 | disposition home or self-care (01) | LOC: PT 15:30 | PROVIDERS: Visit Provider Orthopaedic Surgery | DX: M21.41 Flat foot [pes planus] (acquired), right foot (principal); M21.42 Flat foot [pes planus] (acquired), left foot; M25.571 Pain in right ankle and joints of right foot; M25.572 Pain in left ankle and joints of left foot | CPT/HCPCS: 97010; 97014; 97110; 97163; 97530; G0283 ==

== ENCOUNTER 2023-11-19 11:31 | Day surgery (SDC) | payer OTHER, SELFPAY ==
[2023-11-19 11:47] VITALS: BP 140/77; PULSE 70; RESP 16; TEMP 36.4; O2SAT 93; BMI 42.7
[2023-11-19 12:18] VITALS: BP 140/77; PULSE 70; RESP 16; O2SAT 93
--- NOTE | 2023-11-19 12:26 | EXP.PAIN.PRO ---
Procedure Date: 11/19/23 Time: 12:30 Anesthesiologist:: Otf Sherman CRNA Complications:: None Pre-procedure Diagnosis:: Degenerative disc lumbar spine multilevels. Lumbar radiculopathy. Degenerative disc cervical spine multilevels. Cervical radicular block. Post-procedure Diagnosis:: Same. Indications for Procedure:: Patient is a very pleasant 53-year-old female comes to clinic today for intrathecal pain pump interrogation refill. She is currently being managed with hydromorphone 20 mg/mL and bupivacaine 8 mg/mL. Patient doing adequate with her current settings. She is not requesting any changes today. Patient does not report any side effects or complications. Procedure Details:: Details of the procedure explained to the patient. The patient taken procedure room placed in the sitting position. The area over the pump was cleansed using chlorhexidine's cleansing solution. The pump was interrogated. The pump was accessed with ease using a 22-gauge inch and a half needle. 2 mL of solution was withdrawn discarded appropriately. The pump was then filled with 20 cc of a solution containing hydromorphone 20 mg/mL and bupivacaine 8 mg/mL. The rate will remain the same. Hydromorphone 4.7700 mg/day. Bupivacaine 1.9080 mg/day. Patient tolerated procedure without difficulty. There are no complications. Plan and Disposition:: Patient was discharged without incident.
== END 2023-11-19 12:18 | disposition home or self-care (01) ==
PROVIDERS: PCP Family Medicine; Visit Provider Nurse Anesthetist, Certified Registered
DX: M51.16 Intervertebral disc disorders with radiculopathy, lumbar region (principal); M50.30 Other cervical disc degeneration, unspecified cervical region; Z97.8 Presence of other specified devices; Z45.1 Encounter for adjustment and management of infusion pump
CPT/HCPCS: 95991

== ENCOUNTER 2023-12-23 13:33 | Outpatient (CLI) | payer OTHER, SELFPAY ==
--- NOTE | 2023-12-23 13:38 | CT_ITS ---
FINAL REPORT TECHNIQUE: Thin section axial CT with sagittal reconstruction without contrast CLINICAL HISTORY: NECK PAIN FINDINGS: CT CERVICAL SPINE WITHOUT CONTRAST: The patient is post op anterior cervical fusion from C5-C7. Extensive laminectomies have been performed from the skull base through C7. There is marked reversal of the lordosis of the upper cervical spine, which produces marked flattening of the thecal sac and spinal cord from the C3-C5 levels. IMPRESSION: Extensive postoperative change in the cervical spine with advanced degenerative change from the skull base through the C4-5 level. Although there is no bony canal stenosis there is marked flattening of the thecal sac and spinal cord with marked reverse lordosis in the upper cervical region. Reviewed, Interpreted and Dictated by Srini Garcia MD Transcribed by Cindy Owusu Authenticated and . [facility]
== END 2023-12-23 23:59 ==
LOC: RAD 13:34
PROVIDERS: PCP Family Medicine; Visit Provider Nurse Practitioner Family
DX: M54.2 Cervicalgia (principal)
CPT/HCPCS: 72125

== ENCOUNTER → 2023-12-30 13:00 | Outpatient (POV) | payer OTHER, SELFPAY ==
[2023-12-30 13:21] VITALS: BP 129/69; PULSE 69; RESP 18; O2SAT 97; BMI 44.0
--- NOTE | 2023-12-30 14:00 | EXP.PAIN.PRO ---
Procedure Date: 12/30/23 Time: 14:01 Anesthesiologist:: Cristela Meyer APRN Complications:: None Pre-procedure Diagnosis:: Degenerative disc disease of cervical and lumbar spine with cervical and lumbar radiculopathy symptoms, chronic pain syndrome, status post cervical fusion Post-procedure Diagnosis:: Degenerative disc disease of cervical bar spine with cervical and lumbar radiculopathy symptoms, chronic pain syndrome, status post cervical fusion Indications for Procedure:: Patient is a pleasant 53-year-old female who presents today for follow-up and intrathecal adjustment and reprogram. We are currently treating the patient for degenerative disc disease of cervical and lumbar spine multilevels with cervical and lumbar radiculopathy symptoms, chronic pain, neck pain, status post cervical fusion.? Today she rates her pain a 9 out of 10. She states that since her last visit she did have a fall where she ended up landing along her right side. Patient states that she did have bruising however did not believe that she did anything significant like a fracture. Patient does states she continues to have worsening pain in her neck with increased headaches and radiating symptoms into her arms and hands. Patient describes this as a constant aching, throbbing sensation. She states the pain and numbness and tingling does interfere with the ability to perform activities of daily living such as cooking and cleaning. 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 Patient does state the pain is constant. Patient did have an updated cervical CT due to not being able to tolerate the cervical MRI due to prolonged positioning. She does have autoimmune diseases including Raynaud's syndrome. She is currently managed with intrathecal Dilaudid 20 mg/mL with a daily dose of 4.77 mg/day and bupivacaine 8 mg/mL with a daily dose of 1.908 mg/day.? Patient denies any side effects from this medication.? Patient is also prescribed gabapentin 600 mg 3 times a day, compounded cream and orphenadrine citrate 100 mg twice daily. Her George has been reviewed and appropriate. Physical Exam: General: Alert and oriented x3, no acute distress, pleasant and cooperative Lungs: Respirations even and unlabored, symmetrical chest expansion Eyes: PERRL Musculoskeletal: Flexion and extension of cervical [spine] somewhat guarded secondary to pain, [antalgic gait noted] Neurological: Speech clear, no gross sensory deficit Procedure Details:: Informed consent was obtained and the risk and benefits of the procedure were explained to the patient. Patient was taken to the procedure room where noninvasive monitoring was placed including noninvasive blood pressure cuff and pulse oximeter. Patient's pump was interrogated and was reprogrammed to Dilaudid 5 mg/mL and bupivacaine 2 mg/mm. The patient tolerated the procedure well with no complications. Plan and Disposition:: Patient tolerated her intrathecal increase with no complications and was discharged neurologically intact. I have discussed with the patient her cervical CT findings and have went over possible consult to neurosurgery as well as that she may benefit from spinal cord stimulator trial in the future. Risk and benefits were discussed with the patient and she would like to proceed forward with this plan of care. I will order a psychological evaluation and if she is deemed an appropriate candidate we will proceed forward with the spinal cord stimulator trial in the future. Patient has tried and failed conservative treatment such as oral medications, heat and ice, topicals, physical therapy, previous cervical fusion. Patient will return to clinic in 1 month for reevaluation of symptoms and plan of care. We will see the patient back in the clinic at the next intrathecal refill. Patient has been instructed to contact the clinic with any concerns before the next appointment. Dr. Boyce has reviewed this note and agrees with this plan of care. This note was dictated using voice recognition software and make contain errors or omissions. -- It Is medically necessary for this patient to continue to have their intrathecal pump refilled at regular intervals. This patient had an intrathecal pain pump implanted after meeting criteria of chronic intractable pain for greater than 3 months and failing conservative treatments. Patient has committed and been compliant to the treatment plan and all planned follow up care. Since implantation of the intrathecal pain pump, the patient has had decreased pain and been more functional. Oral medications have been reduced including intake of oral opioids. Patient continues to do well with intrathecal therapy with decrease in pain symptoms and increase in functional status. Stopping intrathecal medications can lead to life threatening withdrawal, seizures, cardiac arrest, severe pain, and possible . Pumps that are not refilled at regular intervals can be damages and cause and need for replacement. We continually titrate dose and concentration to optimize pain relief and function. We are limited in concentration for certain drugs to safely deliver medications through the pump and stay within the recommendations from the Polyanalgesic Consensus Committee Guidelines. Depending on dose and concentration these pumps may need to be refilled sooner than 3 months as we titrate.
== END | disposition home or self-care (01) ==
PROVIDERS: PCP Family Medicine; Visit Provider Nurse Practitioner Family
DX: M50.10 Cervical disc disorder with radiculopathy, unspecified cervical region (principal); M51.16 Intervertebral disc disorders with radiculopathy, lumbar region; G89.4 Chronic pain syndrome; M43.22 Fusion of spine, cervical region; Z97.8 Presence of other specified devices; Z45.1 Encounter for adjustment and management of infusion pump
CPT/HCPCS: 62368; 99212; G0463

== ENCOUNTER → 2024-01-25 13:01 | Day surgery (SDC) | payer OTHER, SELFPAY ==
--- NOTE | 2024-01-25 15:44 | XR_ITS ---
FINAL REPORT CLINICAL HISTORY: INFLAMMATION, pain bilat hips FINDINGS: Right hip Three views were obtained. There is no acute fracture or dislocation. There are mild degenerative changes. No soft tissue abnormality is identified. IMPRESSION: Mild degenerative changes. Reviewed, Interpreted and Dictated by Eddie Frost III, MD Transcribed by Sada Donnelly Authenticated and [facility]
--- NOTE | 2024-01-25 15:44 | XR_ITS ---
FINAL REPORT CLINICAL HISTORY: INFLAMMATION FINDINGS: Left hip Three views were obtained. There is no acute fracture or dislocation. There are mild degenerative changes. There are postoperative changes in the pelvis. IMPRESSION: Degenerative and postsurgical change. Reviewed, Interpreted and Dictated by Eddie Frost III, MD Transcribed by Sada Donnelly Authenticated and [facility]
[2024-01-25 17:10] LABS: Hemoglobin A1C 5.6 % (4.0-6.0)
[2024-01-25 17:17] LABS: Thyroid Stimulating Hormone 0.86 uIU/mL (0.465-4.68)
[2024-01-26 11:15] LABS: Alanine Aminotransferase 35 U/L (12-78); Albumin Level 4.2 g/dl (3.5-5.0); Albumin/Globulin Ratio 1.6 (1.1-1.8); Alkaline Phosphatase 60 U/L (38-126); Anion Gap 12.1 mEq/L (5-15); Aspartate Amino Transferase 52 U/L (14-36); Bilirubin,Total 0.3 mg/dl (0.2-1.3); Blood Urea Nitrogen 24 mg/dl (7-17); Calcium 10.1 mg/dl (8.4-10.2); Carbon Dioxide 28 mmol/L (22.0-30.0); Chloride 104 mmol/L (98-107); Estimated Glomerular Filt Rate 87 ml/min (>60); GFR (African American) 105 ML/MIN (>60); Globulin 2.7 g/dL (1.3-3.2); Glucose 83 mg/dl (74-100); Potassium 4.1 mmoL/L (3.5-5.1); Sodium 140 mmol/L (136-145); Total Protein,Serum 6.9 g/dl (6.3-8.2)
== END ==
PROVIDERS: Internal Medicine; PCP Family Medicine; Visit Provider Nurse Anesthetist, Certified Registered
DX: Z01.818 Encounter for other preprocedural examination (principal); M51.36 Other intervertebral disc degeneration, lumbar region; M25.551 Pain in right hip; M25.552 Pain in left hip; Z79.899 Other long term (current) drug therapy
CPT/HCPCS: 36415; 73502; 80053; 83036; 84443

== ENCOUNTER 2024-02-01 11:00 | Day surgery (SDC) | payer OTHER, SELFPAY ==
[2024-02-01 11:17] VITALS: BP 130/76; PULSE 85; RESP 18; TEMP 36.7; O2SAT 98; BMI 92.4
--- NOTE | 2024-02-01 11:24 | EXP.PAIN.PRO ---
Procedure Date: 02/01/24 Time: 11:15 Anesthesiologist:: Otf Sherman CRNA Complications:: None Pre-procedure Diagnosis:: Degenerative disc lumbar spine multilevels. Lumbar radiculopathy. Lumbar postlaminectomy syndrome. Degenerative disc cervical spine cervical radiculopathy. Chronic pain syndrome. Cervical postlaminectomy syndrome. Post-procedure Diagnosis:: Same. Indications for Procedure:: Patient is a very pleasant 53-year-old female comes our clinic today for intrathecal pain pump interrogation refill. Patient is currently being managed with Dilaudid 20 mg/mL at 5.0 mg/day and bupivacaine 8 mg/mL at 2.0 mg/day. Patient doing very well with her current settings. She is not reporting side effects or complications. She not requesting any changes in the intrathecal pain pump management. Patient is reporting myofascial pain bilateral trapezius muscles. She is requesting trigger point injections of these muscles. We will seek insurance approval. Procedure Details:: Details of the procedure explained to the patient. The patient taken procedure and placed in sitting position. The area of the pump is cleansed using chlorhexidine as a cleansing solution. The pump was interrogated. The pump was accessed with ease using a 22-gauge 2-1/2 inch needle. 1.3 mL solution was withdrawn discarded appropriately. The pump was then filled with 20 cc of solution containing Dilaudid 20 mg/mL and bupivacaine 8 mg/mL. Patient tolerated procedure without difficulty. There are no complications. Plan and Disposition:: Patient was discharged without incident.
[2024-02-01 11:33] VITALS: BP 153/75; PULSE 85; RESP 18; O2SAT 98
== END 2024-02-01 11:35 | disposition home or self-care (01) ==
PROVIDERS: PCP Family Medicine; Visit Provider Nurse Anesthetist, Certified Registered
DX: M51.16 Intervertebral disc disorders with radiculopathy, lumbar region (principal); M96.1 Postlaminectomy syndrome, not elsewhere classified; M50.10 Cervical disc disorder with radiculopathy, unspecified cervical region; G89.4 Chronic pain syndrome; Z97.8 Presence of other specified devices; Z45.1 Encounter for adjustment and management of infusion pump
CPT/HCPCS: 95991

== ENCOUNTER 2024-02-14 10:10 | Outpatient (POV) | payer OTHER, SELFPAY ==
[2024-02-14 10:20] VITALS: BP 144/69; PULSE 74; RESP 20; O2SAT 97; BMI 41.1
--- NOTE | 2024-02-14 10:48 | EXP.PAIN.PRO ---
Procedure Date: 02/14/24 Time: 10:48 Anesthesiologist:: Cristela Meyer APRN Complications:: None Pre-procedure Diagnosis:: Degenerative disc disease of cervical and lumbar spine with cervical and lumbar radiculopathy symptoms, cervical and lumbar postlaminectomy syndrome, chronic pain syndrome, Raynaud's, migraines Post-procedure Diagnosis:: Same Indications for Procedure:: Patient is a pleasant 53-year-old female who presents today for follow-up of her psychological evaluation as well as intrathecal adjustment and reprogram. At our last visit the patient was sent for psychological evaluation for possible spinal cord stimulator trial. Today she has completed this and states that she still would like to proceed forward with the trial. Patient does also state that she would like to discuss starting the Botox for migraines here in our office. Patient does state that she currently goes to [place] with Lakesha Gonzalez who does these injections. Patient states that she would like to do them more local. Patient does state that she is scheduled for these injections coming up and that she will go ahead and have them do her next that however after that would like to start here. Patient is managed with gabapentin 600 mg 3 times daily and methocarbamol. She states she is unsure if she needs refills on these. She is also managed with intrathecal Dilaudid 20 mg/mL with 5 mg/day and bupivacaine 8 mg/mL with 2 mg/day. She denies any side effects from these medications. Her George has been reviewed and is appropriate. Physical Exam: General: Alert and oriented x3, no acute distress, pleasant and cooperative Lungs: Respirations even and unlabored, symmetrical chest expansion Eyes: PERRL Musculoskeletal: Flexion and extension of cervical [spine] somewhat guarded secondary to pain, [antalgic gait noted] Neurological: Speech clear, no gross sensory deficit Procedure Details:: Informed consent was obtained and the risk and benefits of the procedure were explained to the patient. Patient was taken to the procedure room where noninvasive monitoring was placed including noninvasive blood pressure cuff and pulse oximeter. Patient's pump was interrogated and was reprogrammed to Dilaudid 5.25 mg/day and bupivacaine 2.1 mg per. The patient tolerated the procedure well with no complications. Plan and Disposition:: Patient tolerated her intrathecal increase with no complications and was discharged neurologically intact. I have gone over the risk and benefits of the spinal cord stimulator trial and she would like to proceed forward with this plan of care. Patient is not on any blood thinners. We will also plan on following up with the patient after her next set of Botox injections with the plan to get documentation from his prior provider and start those injections here at our location. I will refill the patient's gabapentin 600 mg 3 times daily and methocarbamol 1000 mg 3 times daily and provide a 3-month supply of this medication. Patient will be submitted for the spinal cord stimulator trial. Patient has tried and failed conservative therapies including oral medication, heat and ice, topicals, physical therapy, prior neck and back surgery. Patient has been instructed to contact the clinic with any concerns before the next appointment. Dr. Boyce has reviewed this note and agrees with this plan of care. This note was dictated using voice recognition software and make contain errors or omissions. -- It Is medically necessary for this patient to continue to have their intrathecal pump refilled at regular intervals. This patient had an intrathecal pain pump implanted after meeting criteria of chronic intractable pain for greater than 3 months and failing conservative treatments. Patient has committed and been compliant to the treatment plan and all planned follow up care. Since implantation of the intrathecal pain pump, the patient has had decreased pain and been more functional. Oral medications have been reduced including intake of oral opioids. Patient continues to do well with intrathecal therapy with decrease in pain symptoms and increase in functional status. Stopping intrathecal medications can lead to life threatening withdrawal, seizures, cardiac arrest, severe pain, and possible . Pumps that are not refilled at regular intervals can be damages and cause and need for replacement. We continually titrate dose and concentration to optimize pain relief and function. We are limited in concentration for certain drugs to safely deliver medications through the pump and stay within the recommendations from the Polyanalgesic Consensus Committee Guidelines. Depending on dose and concentration these pumps may need to be refilled sooner than 3 months as we titrate.
== END 2024-02-14 23:59 | disposition home or self-care (01) ==
PROVIDERS: PCP Family Medicine; Visit Provider Nurse Practitioner Family
DX: M50.10 Cervical disc disorder with radiculopathy, unspecified cervical region (principal); M51.16 Intervertebral disc disorders with radiculopathy, lumbar region; M96.1 Postlaminectomy syndrome, not elsewhere classified; G89.4 Chronic pain syndrome; I73.00 Raynaud's syndrome without gangrene; G43.909 Migraine, unspecified, not intractable, without status migrainosus; Z97.8 Presence of other specified devices; Z45.1 Encounter for adjustment and management of infusion pump
CPT/HCPCS: 62368; 99212; G0463

== ENCOUNTER 2024-02-29 08:38 | Outpatient (CLI) | payer OTHER, SELFPAY ==
--- NOTE | 2024-02-29 08:47 | IR_ITS ---
FINAL REPORT CLINICAL HISTORY: SPONDYLOLISTHESIS 10 cc of isovue 300 m injected into lumbar spine FINDINGS: Cervical myelogram HISTORY: Neck pain. ATTENDING PHYSICIAN: Dr. Garcia PHYSICIAN PASTE MIXER LIQUID: Kai Shell PA-C PROCEDURE: Informed consent was obtained. A time-out was performed, and the patient was prepped and draped in usual sterile fashion over the lumbar spine. Utilizing local anesthesia and direct fluoroscopic guidance, access to the thecal space was obtained at the L4-L5 level. 10 mL of Isovue 300M was injected. Contrast is identified in the thecal space. There is multilevel degenerative change of the cervical spine. Fluoroscopy time: 2 minutes 27 seconds Fluoro dose: 1301 DAP in uGym2 IMPRESSION: . Moderate degenerative change. Please see CT scan report. Reviewed, Interpreted and Dictated by Srini Garcia MD Transcribed by TYLOR Cortez Authenticated and . [facility]
--- NOTE | 2024-02-29 09:04 | CT_ITS ---
FINAL REPORT CLINICAL HISTORY: SPONDYLOLISTHESIS FINDINGS: Cervical CT with contrast - post myelogram HISTORY: Neck pain. PROCEDURE: After the patient's myelogram, axial images were obtained through the spine by computed tomography. Sagittal reconstruction images were performed. FINDINGS: Thepatient is posterior cervical fusion from C5-C7. There is severe kyphosis of the mid cervical spine. There is no fracture. There is minimal anterolisthesis of C2 on C3 and C3 on C4. C2-C3: Status post laminectomy. No canal stenosis. C3-C4: Status post laminectomy. Despite the laminectomy there is severe compression of the spinal canal at the upper C4 level. There is mild bilateral foraminal narrowing. C4-C5: Status post laminectomy. Despite the laminectomy there is severe compression of the cervical cord that is likely related to bony hypertrophic change. C5-C6: Status post laminectomy. No canal stenosis. C6-C7: Status post laminectomy. No canal stenosis. C7-T1: Unremarkable. IMPRESSION: Advanced degenerative change and postoperative change. Despite laminectomy there is severe compression of the cervical cord at C3-4 and C4-C5 as detailed above. Films reviewed , interpreted and dictated by Dr. Garcia. Transcribed by Kai Shell PA-C. Reviewed, Interpreted and Dictated by Srini Garcia MD Transcribed by TYLOR Cortez Authenticated and [facility]
[2024-02-29 09:35] VITALS: BP 123/72; PULSE 74; RESP 16; O2SAT 94
[2024-02-29 09:50] VITALS: BP 110/73; PULSE 68; RESP 17; O2SAT 95
[2024-02-29 10:05] VITALS: BP 118/75; PULSE 74; RESP 18; O2SAT 94
[2024-02-29] MEDS: IOPAMIDOL-300 (61%);15ML VIAL 10 ML IV (10:14)
[2024-02-29 10:20] VITALS: BP 104/57; PULSE 71; RESP 16; O2SAT 95
== END 2024-02-29 23:59 | disposition home or self-care (01) ==
PROVIDERS: PCP Family Medicine; Visit Provider Orthopaedic Surgery
DX: M43.12 Spondylolisthesis, cervical region (principal)
CPT/HCPCS: 62302; 72126; Q9967

== ENCOUNTER 2024-03-07 16:28 | Emergency (ER) | payer OTHER, SELFPAY ==
[2024-03-07] VITALS (7 sets, daily range): BP systolic 109–142; BP diastolic 64–94; PULSE 77–81; RESP 20–23; TEMP 36.7; O2SAT 90–98; BMI 41.5
--- NOTE | 2024-03-07 16:31 | ED_ITS ---
Discharge Plan Disposition Patient Disposition: Home, Self-Care Condition: Good Prescriptions Prescriptions: New oxycodone 5 mg tablet 5 mg PO Q8H PRN (Reason: pain) Qty: 10 0RF No Action levothyroxine [Synthroid] 137 mcg tablet 137 mcg PO DAILY calcium carbonate [Calcium 500] 500 mg calcium (1,250 mg) tablet,chewable 1,000 mg PO BID fenofibrate nanocrystallized 145 mg tablet 145 mg PO DAILY dexlansoprazole 60 mg capsule,biphase delayed releas 60 mg PO DAILYP PRN (Reason: stomach) Nurtec ODT 75 mg tablet,disintegrating 75 mg PO DAILY Patient Comments: DISSOLVE 1 TABLET BY MOUTH AT THE ONSET of a HEADACHE DIRECTED lorazepam 2 mg tablet 2 mg PO Q8H PRN (Reason: Anxiety) Patient Comments: TAKE 1/2 TO 1 TABLET BY MOUTH EVERY 8 HOURS NEEDED FOR ANXIETY ipratropium-albuterol 0.5 mg-3 mg(2.5 mg base)/3 mL solution for nebulization 3 ml IH QID PRN (Reason: shortness of breath or wheezing) 90 Days Qty: 270 3RF albuterol sulfate 90 mcg/actuation HFA aerosol inhaler 2 inh inhalation Q6H PRN (Reason: shortness of breath or wheezing) 90 Days Qty: 8.5 1RF bumetanide 1 mg tablet 2 mg PO DAILY Qty: 180 3RF Rx Instructions: TAKE ONE TABLET BY MOUTH DAILY NEEDED FOR EDEMA fluconazole [Diflucan] 150 mg tablet 150 mg PO ONCE Qty: 2 0RF Rx Instructions: may repeat second dose 72 hrs after first dose if symptoms persist spironolactone 25 mg tablet See Rx Instructions .ROUTE .COMPLEX Qty: 180 3RF Dose Instruction: TAKE ONE TABLET BY MOUTH TWICE DAILY Rx Instructions: TAKE ONE TABLET BY MOUTH TWICE DAILY Entresto 24-26 mg tablet See Rx Instructions .ROUTE .COMPLEX Qty: 180 3RF Dose Instruction: TAKE ONE TABLET BY MOUTH TWICE DAILY Rx Instructions: TAKE ONE TABLET BY MOUTH TWICE DAILY carvedilol 12.5 mg tablet See Rx Instructions .ROUTE .COMPLEX Qty: 60 5RF Dose Instruction: TAKE ONE TABLET BY MOUTH TWICE DAILY --TAKE WITH A MEAL/FOOD-- Rx Instructions: TAKE ONE TABLET BY MOUTH TWICE DAILY --TAKE WITH A MEAL/FOOD-- fluconazole 150 mg tablet 150 mg PO ONCE Qty: 1 0RF hydrocortisone 5 mg tablet 5 mg PO BID Patient Comments: TAKE TWO TABLETS BY MOUTH EVERY MORNING AND TAKE ONE TABLET in THE afternoon --TAKE WITH FOOD-- promethazine 25 mg Tablet 25 mg PO Q6H PRN (Reason: Nausea And Vomiting) methocarbamol 750 mg tablet 750 mg PO TID Qty: 90 2RF Dulera 50-5 mcg/actuation HFA aerosol inhaler 2 puff inhalation Q12H diazepam [Valium] 10 mg tablet 10 mg PO ONCE Qty: 1 0RF Rx Instructions: take 30 minutes prior to MRI orphenadrine citrate 100 mg tablet extended release 100 mg PO BID Qty: 60 2RF bupivacaine (PF) 2.5 MG/ML solution 1.3 mg IT CONT Rx Instructions: medication delivered via intrathecal pain pump. actual concentration is 5mg/ml. total volume of pump is 20ml hydromorphone (PF) 1 MG/ML syringe 2.6 mg IT CONT Rx Instructions: medication delivered via intrathecal pain pump. actual concentration 10mg/ml. total volume of pump is 20ml tizanidine 6 mg capsule 6 mg PO HS PRN (Reason: muscle spasticity) Qty: 30 0RF methylprednisolone 4 mg tablets,dose pack 4 mg PO DIRECTED gabapentin 600 mg tablet 600 mg PO TID Qty: 90 2RF diazepam 2 mg tablet 2 mg PO ONCE Qty: 1 0RF Rx Instructions: take 30minutes prior to MRI doxycycline monohydrate 100 mg capsule 100 mg PO BID 5 Days Qty: 10 0RF diclofenac sodium [Pennsaid] 20 mg/gram /actuation(2 %) solution in metered- dose pump 2 pump topical BID Qty: 1 2RF Rx Instructions: APPLY 2 PUMPS (40 MG) TO THE AFFECTED AREA TWO TIMES A DAY gabapentin 600 mg tablet 600 mg PO TID Qty: 90 2RF methocarbamol 1,000 mg tablet 1,000 mg PO TID Qty: 90 2RF Referrals Follow up/Referrals: Amy Terrell [Primary Care Provider] - See instructions Activity Restrictions/Add. Instructions Additional Instructions/Restrictions: Please follow-up with your primary care doctor or your pain medicine clinic as well as your human services care specialist. Please return with any new or worsening symptoms. 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 She has had spinal surgeries in the past with minimal improvement in her symptoms. She denies any fevers or chills. She has been able to ambulate. Previous therapies include home medications which include gabapentin. She occasionally feels that she has difficulty voiding completely. She describes it chronic numbness and tingling in her legs. No preceding trauma but did recently have myelogram which exacerbated her symptoms. Denies any incontinence. She does describe some chronic numbness and tingling in her groin area. Please note that above description of symptoms, in this electronic medical record under categorization of recalled from ER triage doctor by RN are reflective of an initial nursing assessment, however, is not reflective of my full history and physical exam that was personally taken and clarified. Consequentially, this preceding description of symptoms, which may include the patient's categorized chief complaint in the EMR, do not reflect my personal clinical impression, and the ultimate description of history of present illness and patient stated complaints should be deferred to this section of the note. Unless stated otherwise or congruent with this section of the note, additional signs, symptoms, or incongruence should be interpreted as inaccurate with my clinical impression. Related Data Home Medications Medication Instructions Recorded Confirmed levothyroxine 137 mcg tablet 137 mcg PO DAILY hypothyroidism 04/12/18 02/14/24 (Synthroid) dexlansoprazole 60 mg 60 mg PO DAILYP PRN stomach 01/23/21 02/14/24 capsule,biphase delayed release bupivacaine (PF) 0.25 % (2.5 1.3 mg intrathecal CONT chronic 02/24/21 02/14/24 mg/mL) injection solution pain hydromorphone (PF) 1 mg/mL 2.6 mg intrathecal CONT chronic 02/24/21 02/14/24 injection syringe pain rimegepant 75 mg disintegrating 75 mg PO DAILY migraines 10/06/21 02/14/24 tablet (Nurtec ODT) calcium carbonate (Calcium 500) 1,000 mg PO BID Supplement 12/24/21 02/14/24 lorazepam 2 mg tablet 2 mg PO Q8H PRN Anxiety 06/11/22 02/14/24 fenofibrate nanocrystallized 145 145 mg PO DAILY Cholesterol 06/19/22 02/14/24 mg tablet hydrocortisone 5 mg tablet 5 mg PO BID . 11/06/22 02/14/24 promethazine 25 mg tablet 25 mg PO Q6H PRN Nausea And 11/06/22 02/14/24 Vomiting mometasone-formoterol HFA 50 mcg-5 2 puff inhalation Q12H . 04/20/23 02/14/24 mcg/actuation aerosol inhaler (Dulera) methylprednisolone 4 mg tablets in 4 mg PO DIRECTED . 05/17/23 02/14/24 a dose pack Previous Rx's Medication Instructions Recorded methocarbamol 750 mg tablet 750 mg PO TID Pain #90 tabs 03/08/23 albuterol sulfate 90 mcg/actuation 2 inh inhalation Q6H PRN shortness 04/05/23 aerosol inhaler of breath or wheezing 90 days #8.5 grams ipratropium 0.5 mg-albuterol 3 mg 3 ml inhalation QID PRN shortness 04/05/23 (2.5 mg base)/3 mL nebulization of breath or wheezing 90 days #270 soln mL bumetanide 1 mg tablet 2 mg (2 x 1 mg) PO DAILY Fluid 04/16/23 #180 tabs tizanidine 6 mg capsule 6 mg PO HS PRN muscle spasticity 05/17/23 #30 caps gabapentin 600 mg tablet 600 mg PO TID #90 tabs 07/30/23 fluconazole 150 mg tablet 150 mg PO ONCE #2 tabs 08/06/23 (Diflucan) diazepam 2 mg tablet 2 mg PO ONCE #1 tab 08/20/23 doxycycline monohydrate 100 mg 100 mg PO BID 5 days #10 caps 09/05/23 capsule sacubitril 24 mg-valsartan 26 mg See Rx Instructions .Route 09/27/23 tablet (Entresto) .COMPLEX #180 tabs spironolactone 25 mg tablet See Rx Instructions .Route 09/27/23 .COMPLEX #180 tabs diazepam 10 mg tablet (Valium) 10 mg PO ONCE #1 tab 10/01/23 carvedilol 12.5 mg tablet See Rx Instructions .Route 10/29/23 .COMPLEX #60 tabs orphenadrine citrate 100 mg 100 mg PO BID #60 tabs 11/01/23 tablet,extended release diclofenac sodium 20 2 pump topical BID #1 ea 12/30/23 mg/gram/actuation (2 %) topical soln metered-dose pump (Pennsaid) gabapentin 600 mg tablet 600 mg PO TID Pain #90 tabs 02/14/24 methocarbamol 1,000 mg tablet 1,000 mg PO TID . #90 tabs 02/14/24 fluconazole 150 mg tablet 150 mg PO ONCE #1 tab 02/29/24 oxycodone 5 mg tablet 5 mg PO Q8H PRN pain #10 tabs 03/07/24 Allergies Allergy/AdvReac Type Severity Reaction Status Date / Time niacin [NIACIN] Allergy Severe S-DIFF. Verified 11/19/23 11:48 BREATHING Penicillins [PENICILLINS] Allergy Intermediate I-HIVES Verified 11/19/23 11:48 ondansetron Allergy Mild ABD PAIN Verified 11/19/23 11:48 [From ZOFRAN ( HYDROCHLORIDE)] clindamycin Allergy Verified 11/19/23 11:48 metoclopramide [From Reglan] Allergy NAUSEA / Verified 11/19/23 11:48 VOMITING sulfamethoxazole Allergy Verified 11/19/23 11:48 [From Bactrim] trimethoprim [From Bactrim] Allergy Verified 11/19/23 11:48 vancomycin Allergy Redness of Verified 11/19/23 11:48 Skin prochlorperazine AdvReac Severe Verified 11/19/23 11:48 [From Compazine] [facility] Disclaimer: The information contained in this section may have been updated after the patient was seen, as this information can be updated by other users. Medical History Abdominal bloating Abnormal computerized axial tomography of chest Asthma Chest pain Dark urine Daytime somnolence Diastolic congestive heart failure Dyspnea on exertion Edema Family history of asthma Family history of atrial fibrillation Follow-up exam Gastroparesis History of 2019 novel coronavirus disease (COVID-19) History of 2019 novel coronavirus disease (COVID-19) History of environmental allergies HLD (hyperlipidemia) HTN (hypertension) Hypothyroid ILD (interstitial lung disease) Implantable intrathecal infusion pump present Moderate persistent asthma Morbid obesity due to excess calories Nocturnal hypoxemia Nocturnal hypoxia Palpitations Pelvic pressure in female Pulmonary fibrosis, unspecified Thickened endometrium Surgical History H/O brain surgery H/O myomectomy History of cardiac cath History of cervical discectomy History of section History of colonoscopy History of esophagogastroduodenoscopy (EGD) History of foot surgery History of surgery pain pump placement History of tubal ligation Hx of cholecystectomy Hx of fusion of cervical spine Status post lumbar spine surgery for decompression of spinal cord Family History Grandmother COPD (chronic obstructive pulmonary disease) Asthma Mother COPD (chronic obstructive pulmonary disease) Asthma Grandfather Lung cancer Other Family history of breast cancer Social History Smoking Status: Never smoker second hand exposure: No alcohol intake: never substance use type: denies use current occupational status: disabled Travel in the last 8 weeks: None household members: other housing: house lives independently: Yes marital status: single current occupational exposures/hazards: No caffeine: Yes special bridgette needs: No agree to transfusion: No do you feel safe at home: Yes victim of physical abuse: No victim of emotional abuse: No victim of sexual abuse: No would you like helpful sources: No ROS Obtained: Yes Systems reviewed as appropriate & no additional complaints except as documented As per HPI Physical Exam General General appearance: alert and in no apparent distress Head Head exam: atraumatic and normocephalic Eye Eye exam: Present normal appearance Neck Neck exam: Present normal inspection Chest Chest inspection: Present normal inspection and symmetric chest wall rise Respiratory Respiratory exam: Present normal lung sounds bilaterally; Absent respiratory distress Cardiovascular Cardiovascular exam: Present regular rate and normal rhythm Abdominal Exam Abdominal exam: Present soft Extremities Exam Extremities exam: Present other (Lumbar spinal tenderness to palpation, strength and sensation intact in bilateral lower extremities, rectal exam deferred, reflexes 1+ in bilateral lower extremities) Neurological Exam Neurological exam: Present alert and oriented X3 Psychiatric Psychiatric exam: Present normal affect and normal mood Skin Skin exam: Present warm and dry Medical Decision Making Medical Records Medical records reviewed: Yes I reviewed the patient's medical records. George Inquiry Pt receiving controlled substance: Yes George was queried for this patient: Yes Risks and benefits of using a controlled substance: were discussed with pt by me Vital Signs: 03/07/24 16:30 03/07/24 16:36 03/07/24 17:01 Temperature 98.1 F Temperature Source Oral Pulse Rate 81 78 Pulse Rate [Right] 79 Respiratory Rate 23 Blood Pressure 128/76 114/84 Blood Pressure [Right Arm] 128/76 Blood Pressure Mean 88 Blood Pressure Mean [Right Arm] 93 Blood Pressure Source [Right Arm] Automatic Cuff 02 Sat by Pulse Oximetry 98 90 L 91 L Oxygen Delivery Method Room Air Room Air Room Air 03/07/24 17:31 03/07/24 18:00 03/07/24 19:00 Temperature Temperature Source Pulse Rate 77 78 79 Pulse Rate [Right] Respiratory Rate Blood Pressure 142/76 H 127/69 109/64 L Blood Pressure [Right Arm] Blood Pressure Mean 79 Blood Pressure Mean [Right Arm] Blood Pressure Source [Right Arm] 02 Sat by Pulse Oximetry 90 L 90 L 92 L Oxygen Delivery Method Room Air Room Air 03/07/24 19:57 Temperature 98.0 F Temperature Source Pulse Rate 79 Pulse Rate [Right] Respiratory Rate 20 Blood Pressure 109/94 L Blood Pressure [Right Arm] Blood Pressure Mean Blood Pressure Mean [Right Arm] Blood Pressure Source [Right Arm] 02 Sat by Pulse Oximetry Oxygen Delivery Method Room Air Lab Data Lab Results 03/07/24 16:56: WBC 4.9, RBC 4.57, Hgb 13.3, Hct 41.6, MCV 91.0, MCH 29.1, MCHC 32.0, RDW 14.5, Plt Count 190, MPV 9.9, Neut % (Auto) 44.5, Lymph % (Auto) 44.5, [place] % (Auto) 6.8, Eos % (Auto) 2.7, Baso % (Auto) 1.4, Neut # (Auto) 2.2, Lymph # (Auto) 2.2, [place] # (Auto) 0.3, Eos # (Auto) 0.1, Baso # (Auto) 0.1, ESR 21, Sodium 141, Potassium 3.8, Chloride 103, Carbon Dioxide 31 H, Anion Gap 10.8, B UN 20 H, Creatinine 0.80, Estimated Creat Clear 71, Estimated GFR 74, Est GFR ( Amer) 90, Glucose 96, Calcium 10.2, Total Bilirubin 0.4, AST 61 H, ALT 45, Alkaline Phosphatase 53, C-Reactive Protein 2.4, Total Protein 7.8, Albumin 4.7, Globulin 3.1, Albumin/Globulin Ratio 1.5 03/07/24 16:56 03/07/24 16:56 Orders (Tests/Meds): ED MEDICATIONS Discontinued Medications Generic Name Dose Route Start Last Admin Trade Name Freq PRN Reason Stop Dose Admin Diphenhydramine HCl 25 mg 03/07/24 18:47 03/07/24 18:59 Diphenhydramine 50mg/Ml Vial IV 03/07/24 18:48 25 mg ONCE ONE Administration Famotidine 20 mg 03/07/24 18:48 03/07/24 18:59 Famotidine 20mg/2ml Vial IV 03/07/24 18:49 20 mg ONCE ONE Administration Hydromorphone HCl 1 mg 03/07/24 17:17 03/07/24 17:41 Hydromorphone 4 Mg/Ml Syringe IV 03/07/24 17:18 1 mg ONCE ONE Administration Iopamidol 75 ml 03/07/24 18:20 03/07/24 18:21 Iopamidol-370 (76%);100ml Bottle IV 03/07/24 18:21 75 ml ONCE ONE Administration Methylprednisolone Sodium Succinate 125 mg 03/07/24 18:47 03/07/24 18:59 Methylprednisolone Sod Succ 125mg Vial IV 03/07/24 18:48 125 mg ONCE ONE Administration Promethazine HCl 25 mg 03/07/24 17:18 03/07/24 17:41 Promethazine Hcl 25mg/Ml 1ml Vial IV 03/07/24 17:19 25 mg ONCE ONE Administration Sodium Chloride 25 ml 03/07/24 17:18 03/07/24 17:42 Sodium Chloride 0.9% 25ml Bag IV 03/07/24 17:19 25 ml ONCE ONE Administration Sodium Chloride 10 ml 03/07/24 18:20 03/07/24 18:21 Sodium Chloride 0.9% 10ml Syr (Rad Only) IV 03/07/24 18:21 10 ml ONCE ONE Administration Sodium Chloride 8 ml 03/07/24 18:48 Sodium Chloride 0.9% 10ml Vial IV 04/06/24 18:47 NEEDED PRN dilute pepcid ORDERS Category Date Time Status CT lumbar spine w con Stat Cat Scan 03/07/24 17:13 Completed CBC w/Auto Diff [Complete Blood Count Auto Diff] Stat Lab 03/07/24 16:56 Completed CMP [Comprehensive Metabolic Panel] Stat Lab 03/07/24 16:56 Completed CRP [C-Reactive Protein] Stat Lab 03/07/24 16:56 Completed ESR [Erythrocyte Sedimentation Rate] Stat Lab 03/07/24 16:56 Completed Medical Decision Narrative: Patient with history and exam per above presenting for evaluation of acute on chronic back pain Diagnoses considered include cauda equina syndrome, conus medullaris syndrome, fracture, mechanical low back pain, spinal epidural abscess considered although thought to be less likely at this time and there is insufficient evidence to warrant further workup at this time ED workup and treatment included: ED MEDICATIONS Discontinued Medications Generic Name Dose Route Start Last Admin Trade Name Freq PRN Reason Stop Dose Admin Diphenhydramine HCl 25 mg 03/07/24 18:47 03/07/24 18:59 Diphenhydramine 50mg/Ml Vial IV 03/07/24 18:48 25 mg ONCE ONE Administration Famotidine 20 mg 03/07/24 18:48 03/07/24 18:59 Famotidine 20mg/2ml Vial IV 03/07/24 18:49 20 mg ONCE ONE Administration Hydromorphone HCl 1 mg 03/07/24 17:17 03/07/24 17:41 Hydromorphone 4 Mg/Ml Syringe IV 03/07/24 17:18 1 mg ONCE ONE Administration Iopamidol 75 ml 03/07/24 18:20 03/07/24 18:21 Iopamidol-370 (76%);100ml Bottle IV 03/07/24 18:21 75 ml ONCE ONE Administration Methylprednisolone Sodium Succinate 125 mg 03/07/24 18:47 03/07/24 18:59 Methylprednisolone Sod Succ 125mg Vial IV 03/07/24 18:48 125 mg ONCE ONE Administration Promethazine HCl 25 mg 03/07/24 17:18 03/07/24 17:41 Promethazine Hcl 25mg/Ml 1ml Vial IV 03/07/24 17:19 25 mg ONCE ONE Administration Sodium Chloride 25 ml 03/07/24 17:18 03/07/24 17:42 Sodium Chloride 0.9% 25ml Bag IV 03/07/24 17:19 25 ml ONCE ONE Administration Sodium Chloride 10 ml 03/07/24 18:20 03/07/24 18:21 Sodium Chloride 0.9% 10ml Syr (Rad Only) IV 03/07/24 18:21 10 ml ONCE ONE Administration Sodium Chloride 8 ml 03/07/24 18:48 Sodium Chloride 0.9% 10ml Vial IV 04/06/24 18:47 NEEDED PRN dilute pepcid ORDERS Category Date Time Status CT lumbar spine w con Stat Cat Scan 03/07/24 17:13 Completed CBC w/Auto Diff [Complete Blood Count Auto Diff] Stat Lab 03/07/24 16:56 Completed CMP [Comprehensive Metabolic Panel] Stat Lab 03/07/24 16:56 Completed CRP [C-Reactive Protein] Stat Lab 03/07/24 16:56 Completed ESR [Erythrocyte Sedimentation Rate] Stat Lab 03/07/24 16:56 Completed Abnormal Labs 03/07/24 16:56 Carbon Dioxide 31 H BUN 20 H AST 61 H Labs were independently interpreted by me, significant for no leukocytosis, inflammatory markers within normal limits, postvoid residual was obtained which was 0 Imaging was independently visualized and interpreted by me, significant for no acute pathology. Please refer to radiology report for full details. My clinical impression at this time is most consistent with exacerbation of chronic back pain. Given patient is ambulatory, postvoid residual normal, improvement of symptoms upon repeat evaluation, epidural abscess, cauda equina syndrome thought to be less likely at this time, patient is amenable to discharge with strict return precautions and outpatient follow-up. The constellation of her symptoms overall she describes as consistent with her baseline back pain albeit more severe after her myelogram I discussed my clinical impression with patient and answered all questions. At this time, the evidence for any other entities in the differential is insufficient to warrant any further testing or ED observation. This was explained to the patient. The patient was advised that persistent or worsening symptoms require further evaluation. I confirmed the patient's understanding of this discussion. Critical Care Critical Care Time Critical Care Time: No
--- NOTE | 2024-03-07 16:53 | PC.NURSE ---
DR SOTO AT BEDSIDE
--- NOTE | 2024-03-07 17:13 | CT_ITS ---
PROCEDURE INFORMATION: Exam: CT Lumbar Spine With Contrast Exam date and time: 03/07/2024 6:15 PM Age: 53 years old Clinical indication: Low back pain; Prior surgery; Surgery date: Post-operative (0-2 days); Surgery type: Myelogram on 02/28. Pain pump; Additional info: Recent myelogram, lumbar back pain, saddle anesthe TECHNIQUE: Imaging protocol: Computed tomography of the lumbar spine with contrast. Radiation optimization: All CT scans at this facility use at least one of these dose optimization techniques: automated exposure control; mA and/or kV adjustment per patient size (includes targeted exams where dose is matched to clinical indication); or iterative reconstruction. Contrast material: ISOVUE; Contrast volume: 75 ml; Contrast route: IV; COMPARISON: MR LUMBAR SPINE WO CON 08/12/2021 1:06 PM FINDINGS: Bones/joints: No acute fracture. Normal alignment. Disc bulging at L3-L4 with marginal osteophyte formation. Pain pump device is seen entering at the L3-L4 level extending cephalad. No additional significant disc bulge or herniation. No severe spinal canal stenosis. No significant neural foraminal narrowing. Soft tissues: Unremarkable. IMPRESSION: No acute findings.
[2024-03-07] MEDS: PROMETHAZINE HCL 25MG/ML 1ML VIAL 25 MG IV (17:41)
[2024-03-07] MEDS: SODIUM CHLORIDE 0.9% 25ML BAG 25 ML IV (17:42)
[2024-03-07 17:47] LABS: Alanine Aminotransferase 45 U/L (12-78); Albumin Level 4.7 g/dl (3.5-5.0); Albumin/Globulin Ratio 1.5 (1.1-1.8); Alkaline Phosphatase 53 U/L (38-126); Anion Gap 10.8 mEq/L (5-15); Aspartate Amino Transferase 61 U/L (14-36); Bilirubin,Total 0.4 mg/dl (0.2-1.3); Blood Urea Nitrogen 20 mg/dl (7-17); Calcium 10.2 mg/dl (8.4-10.2); Carbon Dioxide 31 mmol/L (22.0-30.0); Chloride 103 mmol/L (98-107); Creatinine Clearance Estimated 71 mL/min (50-200); Estimated Glomerular Filt Rate 74 ml/min (>60); GFR (African American) 90 ML/MIN (>60); Globulin 3.1 g/dL (1.3-3.2); Glucose 96 mg/dl (74-100); Potassium 3.8 mmoL/L (3.5-5.1); Sodium 141 mmol/L (136-145); Total Protein,Serum 7.8 g/dl (6.3-8.2)
[2024-03-07 17:49] LABS: Basophils # 0.1 K/mm3 (0-0.2); Basophils % 1.4 % (0.1-2.0); Eosinophils # 0.1 K/mm3 (0.0-0.4); Eosinophils % 2.7 % (0.1-12.0); Hematocrit 41.6 % (37.0-47.0); Hemoglobin 13.3 g/dL (12.2-16.2); Lymphocytes # 2.2 K/mm3 (0.7-4.5); Lymphocytes % 44.5 % (10-50); Mean Corpuscular Hemoglobin 29.1 pg (27.0-31.2); Mean Platelet Volume 9.9 fl (7.4-10.4); Monocytes # 0.3 K/mm3 (0.1-1.0); Monocytes % 6.8 % (1.7-9.3); Neutrophils # 2.2 K/mm3 (1.8-7.8); Neutrophils % 44.5 % (37.0-80.0); Platelet Count 190 K/mm3 (142-424); Red Blood Count 4.57 M/mm3 (4.20-5.40); Red Cell Distribution Width 14.5 % (11.5-17.5); White Blood Count 4.9 K/mm3 (4.8-10.8)
[2024-03-07 17:52] LABS: C-Reactive Protein 2.4 mg/L (0-4)
[2024-03-07 18:18] LABS: Erythrocyte Sedimentation Rate 21 mm/hr (0-30)
[2024-03-07] MEDS: SODIUM CHLORIDE 0.9% 10ML SYR (RAD ONLY) 10 ML IV (18:21)
[2024-03-07] MEDS: IOPAMIDOL-370 (76%);100ML BOTTLE 75 ML IV (18:21)
--- NOTE | 2024-03-07 18:48 | PC.NURSE ---
PT C/O OF ITCHING TO HER HEAD AND REDNESS TO THE NECK AFTER GETTING CONTRAST . PT STATES THAT HAPPENED THE LAST TIME SHE HAD CONTRAST . NEW ORDERS PLACED
[2024-03-07] MEDS: METHYLPREDNISOLONE SOD SUCC 125MG VIAL 125 MG IV (18:59)
[2024-03-07] MEDS: diphenhydrAMINE 50MG/ML VIAL 25 MG IV (18:59)
[2024-03-07] MEDS: FAMOTIDINE 20MG/2ML VIAL 20 MG IV (18:59)
--- NOTE | 2024-03-07 20:06 | PC.NURSE ---
pt reports the oxycode 5mg do not help her with her pain. and requested we send something else in. I followed up with Dr. Meredith, whom stated thats all we could send. I encouraged the pt to call the pain clinic first thing in the am.
== END 2024-03-07 20:07 | disposition home or self-care (01) ==
PROVIDERS: Emergency Provider Emergency Medicine; PCP Family Medicine Sports Medicine
DX: M54.50 Low back pain, unspecified (principal); G89.29 Other chronic pain; I11.0 Hypertensive heart disease with heart failure; I50.30 Unspecified diastolic (congestive) heart failure; E78.5 Hyperlipidemia, unspecified; E03.9 Hypothyroidism, unspecified; J84.9 Interstitial pulmonary disease, unspecified; J45.909 Unspecified asthma, uncomplicated
CPT/HCPCS: 72132; 80053; 85025; 85651; 86140; 96374; 96375; 99285; Q9967

== ENCOUNTER 2024-03-28 12:56 | Day surgery (SDC) | payer OTHER, SELFPAY ==
[2024-03-28 13:05] VITALS: BP 114/84; PULSE 73; RESP 18; TEMP 36.2; O2SAT 96; BMI 38.5
[2024-03-28 13:20] VITALS: BP 131/76; PULSE 73; RESP 18; O2SAT 97
--- NOTE | 2024-03-28 13:29 | EXP.PAIN.PRO ---
Procedure Date: 03/28/24 Time: 13:10 Anesthesiologist:: Otf Sherman CRNA Complications:: None Pre-procedure Diagnosis:: Degenerative disc lumbar spine multilevels. Lumbar radiculopathy. Lumbar postlaminectomy syndrome. Chronic pain syndrome. Degenerative disc cervical spine cervical radiculopathy. Post-procedure Diagnosis:: Same. Indications for Procedure:: Patient is a very pleasant 53-year-old female comes our clinic today for intrathecal pain pump interrogation refill. Patient currently being managed with intrathecal hydromorphone 20 mg/mL and bupivacaine 8 mg/mL. Hydromorphone is 5.25 mg/day. Bupivacaine 2.1 mg/day. She is doing well with her current settings. She does not request any changes. She is not reporting side effects or complications. Procedure Details:: Details of the procedure explained to the patient. The patient taken procedure and placed in sitting position. There were the pump was cleansed using chlorhexidine's cleansing solution. The pump was interrogated. The pump was accessed with ease using a 22-gauge inch and half needle. 4.5 mL of solution was withdrawn discarded appropriate. The pump was then filled 20 cc of solution containing hydromorphone 20 mg/mL and bupivacaine 8 mg/mL. Patient tolerated procedure without difficulty. There are no complications. Plan and Disposition:: Patient was discharged without incident.
[2024-03-28 13:36] VITALS: BP 148/75; PULSE 69; RESP 18; O2SAT 98
[2024-03-28 19:03] LABS: Amphetamine/Metha Screen,Urine Negative ng/ml (<1000); Benzodiazepines Screen,Urine Negative ng/ml (<200)
[2024-03-28 19:04] LABS: Barbiturates Screen,Urine Negative ng/ml (<200)
[2024-03-28 19:05] LABS: Cannabinoid Screen,Urine Negative ng/ml (<50); Methadone Screen,Urine Negative ng/ml (<300)
[2024-03-28 19:06] LABS: Cocaine Screen,Urine Negative ng/ml (<300); Opiate Screen,Urine Positive ng/ml (<300)
[2024-03-28 19:07] LABS: Phencyclidine Screen,Urine Negative ng/ml (<25)
== END 2024-03-28 13:37 | disposition home or self-care (01) ==
PROVIDERS: Anesthesiology; PCP Family Medicine; Visit Provider Nurse Anesthetist, Certified Registered
DX: M51.16 Intervertebral disc disorders with radiculopathy, lumbar region (principal); M96.1 Postlaminectomy syndrome, not elsewhere classified; G89.4 Chronic pain syndrome; M50.10 Cervical disc disorder with radiculopathy, unspecified cervical region; Z97.8 Presence of other specified devices; Z45.1 Encounter for adjustment and management of infusion pump
CPT/HCPCS: 80307; 80361; 80365; 95991; G0480

== ENCOUNTER 2024-03-28 13:57 | Emergency (ER) | payer OTHER, SELFPAY ==
[2024-03-28 14:10] VITALS: BP 124/67; PULSE 74; RESP 18; TEMP 36.5; O2SAT 98; BMI 38.5
--- NOTE | 2024-03-28 14:33 | ED_ITS ---
Discharge Plan Disposition Patient Disposition: Home, Self-Care Condition: Good Prescriptions Prescriptions: New doxycycline hyclate 100 mg tablet 100 mg PO BID Qty: 20 0RF mupirocin 2 % ointment 1 applic topical TID Qty: 22 0RF Rx Instructions: apply to wounds as directed No Action levothyroxine [Synthroid] 137 mcg tablet 137 mcg PO DAILY calcium carbonate [Calcium 500] 500 mg calcium (1,250 mg) tablet,chewable 1,000 mg PO BID fenofibrate nanocrystallized 145 mg tablet 145 mg PO DAILY dexlansoprazole 60 mg capsule,biphase delayed releas 60 mg PO DAILYP PRN (Reason: stomach) Nurtec ODT 75 mg tablet,disintegrating 75 mg PO DAILY Patient Comments: DISSOLVE 1 TABLET BY MOUTH AT THE ONSET of a HEADACHE DIRECTED lorazepam 2 mg tablet 2 mg PO Q8H PRN (Reason: Anxiety) Patient Comments: TAKE 1/2 TO 1 TABLET BY MOUTH EVERY 8 HOURS NEEDED FOR ANXIETY ipratropium-albuterol 0.5 mg-3 mg(2.5 mg base)/3 mL solution for nebulization 3 ml IH QID PRN (Reason: shortness of breath or wheezing) 90 Days Qty: 270 3RF albuterol sulfate 90 mcg/actuation HFA aerosol inhaler 2 inh inhalation Q6H PRN (Reason: shortness of breath or wheezing) 90 Days Qty: 8.5 1RF bumetanide 1 mg tablet 2 mg PO DAILY Qty: 180 3RF Rx Instructions: TAKE ONE TABLET BY MOUTH DAILY NEEDED FOR EDEMA spironolactone 25 mg tablet See Rx Instructions .ROUTE .COMPLEX Qty: 180 3RF Dose Instruction: TAKE ONE TABLET BY MOUTH TWICE DAILY Rx Instructions: TAKE ONE TABLET BY MOUTH TWICE DAILY Entresto 24-26 mg tablet See Rx Instructions .ROUTE .COMPLEX Qty: 180 3RF Dose Instruction: TAKE ONE TABLET BY MOUTH TWICE DAILY Rx Instructions: TAKE ONE TABLET BY MOUTH TWICE DAILY carvedilol 12.5 mg tablet See Rx Instructions .ROUTE .COMPLEX Qty: 60 5RF Dose Instruction: TAKE ONE TABLET BY MOUTH TWICE DAILY --TAKE WITH A MEAL/FOOD-- Rx Instructions: TAKE ONE TABLET BY MOUTH TWICE DAILY --TAKE WITH A MEAL/FOOD-- hydrocortisone 5 mg tablet 5 mg PO BID Patient Comments: TAKE TWO TABLETS BY MOUTH EVERY MORNING AND TAKE ONE TABLET in THE afternoon --TAKE WITH FOOD-- promethazine 25 mg Tablet 25 mg PO Q6H PRN (Reason: Nausea And Vomiting) Dulera 50-5 mcg/actuation HFA aerosol inhaler 2 puff inhalation Q12H diazepam [Valium] 10 mg tablet 10 mg PO ONCE Qty: 1 0RF Rx Instructions: take 30 minutes prior to MRI orphenadrine citrate 100 mg tablet extended release 100 mg PO BID Qty: 60 2RF zolpidem 10 mg tablet 10 mg PO DAILY Patient Comments: TAKE 1 TABLET BY MOUTH AT NIGHT NEEDED FOR SLEEP bupivacaine (PF) 2.5 MG/ML solution 1.3 mg IT CONT Rx Instructions: medication delivered via intrathecal pain pump. actual concentration is 5mg/ml. total volume of pump is 20ml hydromorphone (PF) 1 MG/ML syringe 2.6 mg IT CONT Rx Instructions: medication delivered via intrathecal pain pump. actual concentration 10mg/ml. total volume of pump is 20ml tizanidine 6 mg capsule 6 mg PO HS PRN (Reason: muscle spasticity) Qty: 30 0RF diazepam 2 mg tablet 2 mg PO ONCE Qty: 1 0RF Rx Instructions: take 30minutes prior to MRI diclofenac sodium [Pennsaid] 20 mg/gram /actuation(2 %) solution in metered- dose pump 2 pump topical BID Qty: 1 2RF Rx Instructions: APPLY 2 PUMPS (40 MG) TO THE AFFECTED AREA TWO TIMES A DAY gabapentin 600 mg tablet 600 mg PO TID Qty: 90 2RF methocarbamol 1,000 mg tablet 1,000 mg PO TID Qty: 90 2RF oxycodone 5 mg tablet 5 mg PO Q8H PRN (Reason: pain) Qty: 10 0RF Referrals Follow up/Referrals: Provider,Referral, MD [Primary Care Provider] - See instructions Activity Restrictions/Add. Instructions Additional Instructions/Restrictions: Take medication as prescribed Use topical medication as prescribed Follow up with your Family Doctor if no improvement or any worsening of symptoms Clinical Impressions Clinical Impression: Skin problem Instructions Patient Instructions: Doxycycline, Mupirocin Discharge ED Provider: Keila Mcintyre [facility] [place] HPI General Stated complaint: both hands infected Mode of Arrival: Ambulatory Source of Information: Patient Limitations: No Limitations Time Seen by Provider: 03/28/24 14:33 Description of Symptoms (Recalled from Triage Doc. by RN): Pt's symptoms are bilateral hand redness and swelling. HEENT Symptoms (Recalled from RN notes): No Resp Symptoms (Recalled from RN notes): No Skin Symptoms (Recalled from RN notes): Yes MS Symptoms (Recalled from RN notes): No Functional Status (Recalled from RN notes): n/a History of Present Illness Provider Complaint: Patient states that she has autoimmune issues and sometimes she gets cellulitis on her hands, states that she has small cuts on her hands and now has her hands acting up and thinks she may have cellulitis again Related Data Home Medications Medication Instructions Recorded Confirmed levothyroxine 137 mcg tablet 137 mcg PO DAILY hypothyroidism 04/12/18 03/28/24 (Synthroid) dexlansoprazole 60 mg 60 mg PO DAILYP PRN stomach 01/23/21 03/28/24 capsule,biphase delayed release bupivacaine (PF) 0.25 % (2.5 1.3 mg intrathecal CONT chronic 02/24/21 03/28/24 mg/mL) injection solution pain hydromorphone (PF) 1 mg/mL 2.6 mg intrathecal CONT chronic 02/24/21 03/28/24 injection syringe pain rimegepant 75 mg disintegrating 75 mg PO DAILY migraines 10/06/21 03/28/24 tablet (Nurtec ODT) calcium carbonate (Calcium 500) 1,000 mg PO BID Supplement 12/24/21 03/28/24 lorazepam 2 mg tablet 2 mg PO Q8H PRN Anxiety 06/11/22 03/28/24 fenofibrate nanocrystallized 145 145 mg PO DAILY Cholesterol 06/19/22 03/28/24 mg tablet hydrocortisone 5 mg tablet 5 mg PO BID . 11/06/22 03/28/24 promethazine 25 mg tablet 25 mg PO Q6H PRN Nausea And 11/06/22 03/28/24 Vomiting mometasone-formoterol HFA 50 mcg-5 2 puff inhalation Q12H . 04/20/23 03/28/24 mcg/actuation aerosol inhaler (Dulera) zolpidem 10 mg tablet 10 mg PO DAILY 03/28/24 03/28/24 Previous Rx's Medication Instructions Recorded albuterol sulfate 90 mcg/actuation 2 inh inhalation Q6H PRN shortness 04/05/23 aerosol inhaler of breath or wheezing 90 days #8.5 grams ipratropium 0.5 mg-albuterol 3 mg 3 ml inhalation QID PRN shortness 04/05/23 (2.5 mg base)/3 mL nebulization of breath or wheezing 90 days #270 soln mL bumetanide 1 mg tablet 2 mg (2 x 1 mg) PO DAILY Fluid 04/16/23 #180 tabs tizanidine 6 mg capsule 6 mg PO HS PRN muscle spasticity 05/17/23 #30 caps diazepam 2 mg tablet 2 mg PO ONCE #1 tab 08/20/23 sacubitril 24 mg-valsartan 26 mg See Rx Instructions .Route 09/27/23 tablet (Entresto) .COMPLEX #180 tabs spironolactone 25 mg tablet See Rx Instructions .Route 09/27/23 .COMPLEX #180 tabs diazepam 10 mg tablet (Valium) 10 mg PO ONCE #1 tab 10/01/23 carvedilol 12.5 mg tablet See Rx Instructions .Route 10/29/23 .COMPLEX #60 tabs orphenadrine citrate 100 mg 100 mg PO BID #60 tabs 11/01/23 tablet,extended release diclofenac sodium 20 2 pump topical BID #1 ea 12/30/23 mg/gram/actuation (2 %) topical soln metered-dose pump (Pennsaid) gabapentin 600 mg tablet 600 mg PO TID Pain #90 tabs 02/14/24 methocarbamol 1,000 mg tablet 1,000 mg PO TID . #90 tabs 02/14/24 oxycodone 5 mg tablet 5 mg PO Q8H PRN pain #10 tabs 03/07/24 doxycycline hyclate 100 mg tablet 100 mg PO BID #20 tabs 03/28/24 mupirocin 2 % topical ointment 1 applic topical TID #22 grams 03/28/24 Allergies Allergy/AdvReac Type Severity Reaction Status Date / Time niacin [NIACIN] Allergy Severe S-DIFF. Verified 03/28/24 14:24 BREATHING Penicillins [PENICILLINS] Allergy Intermediate I-HIVES Verified 03/28/24 14:24 ondansetron Allergy Mild ABD PAIN Verified 03/28/24 14:24 [From ZOFRAN ( HYDROCHLORIDE)] clindamycin Allergy Verified 03/28/24 14:24 metoclopramide [From Reglan] Allergy NAUSEA / Verified 03/28/24 14:24 VOMITING sulfamethoxazole Allergy Verified 03/28/24 14:24 [From Bactrim] trimethoprim [From Bactrim] Allergy Verified 03/28/24 14:24 vancomycin Allergy Redness of Verified 03/28/24 14:24 Skin prochlorperazine AdvReac Severe Verified 03/28/24 14:24 [From Compazine] Worker's Comp Is this a Worker's Comp case?: No [facility] Disclaimer: The information contained in this section may have been updated after the patient was seen, as this information can be updated by other users. Medical History Abdominal bloating Abnormal computerized axial tomography of chest Asthma Chest pain Dark urine Daytime somnolence Diastolic congestive heart failure Dyspnea on exertion Edema Family history of asthma Family history of atrial fibrillation Follow-up exam Gastroparesis History of 2019 novel coronavirus disease (COVID-19) History of 2019 novel coronavirus disease (COVID-19) History of environmental allergies HLD (hyperlipidemia) HTN (hypertension) Hypothyroid ILD (interstitial lung disease) Implantable intrathecal infusion pump present Moderate persistent asthma Morbid obesity due to excess calories Nocturnal hypoxemia Nocturnal hypoxia Palpitations Pelvic pressure in female Pulmonary fibrosis, unspecified Thickened endometrium Surgical History H/O brain surgery H/O myomectomy History of cardiac cath History of cervical discectomy History of section History of colonoscopy History of esophagogastroduodenoscopy (EGD) History of foot surgery History of surgery pain pump placement History of tubal ligation Hx of cholecystectomy Hx of fusion of cervical spine Status post lumbar spine surgery for decompression of spinal cord Family History Grandmother COPD (chronic obstructive pulmonary disease) Asthma Mother COPD (chronic obstructive pulmonary disease) Asthma Grandfather Lung cancer Other Family history of breast cancer Social History Smoking Status: Never smoker second hand exposure: No alcohol intake: never substance use type: denies use current occupational status: disabled Travel in the last 8 weeks: None household members: other housing: house lives independently: Yes marital status: single current occupational exposures/hazards: No caffeine: Yes special bridgette needs: No agree to transfusion: No do you feel safe at home: Yes victim of physical abuse: No victim of emotional abuse: No victim of sexual abuse: No would you like helpful sources: No ROS Obtained: Yes All systems reviewed & no additional complaints except as documented and Yes Systems reviewed as appropriate & no additional complaints except as documented Physical Exam General General appearance: alert and in no apparent distress Respiratory Respiratory exam: Present normal lung sounds bilaterally; Absent respiratory distress or wheezes Cardiovascular Cardiovascular exam: Present regular rate, normal rhythm and normal heart sounds Abdominal Exam Abdominal exam: Present soft and normal bowel sounds; Absent distention or tenderness Neurological Exam Neurological exam: Present alert, oriented X3 and normal gait Skin Skin exam: Present other (redness noted to bilateral hands with small cuts noted on hands ) Medical Decision Making George Inquiry Pt receiving controlled substance: No George was queried for this patient: No Vital Signs: 03/28/24 14:10 Temperature 97.7 F Temperature Source Oral Pulse Rate [Right Radial] 74 Respiratory Rate 18 Blood Pressure [Right Arm] 124/67 Blood Pressure Mean [Right Arm] 86 Blood Pressure Source [Right Arm] Automatic Cuff Blood Pressure Position [Right Arm] Sitting 02 Sat by Pulse Oximetry 98 Oxygen Delivery Method Room Air
[2024-03-28] MEDS: METHYLPREDNISOLONE SOD SUCC 125MG VIAL 125 MG IM (14:48)
[2024-03-28 15:01] VITALS: BP 124/67; PULSE 74; RESP 18; TEMP 36.5
== END 2024-03-28 15:00 | disposition home or self-care (01) ==
PROVIDERS: Emergency Provider Nurse Practitioner
DX: L53.9 Erythematous condition, unspecified (principal); R22.31 Localized swelling, mass and lump, right upper limb; R22.32 Localized swelling, mass and lump, left upper limb
CPT/HCPCS: 96372; 99212; 99214; G0463

== ENCOUNTER 2024-04-03 13:52 | Outpatient (POV) | payer OTHER, SELFPAY ==
[2024-04-03 14:11] VITALS: BP 110/53; PULSE 88; RESP 16; O2SAT 94; BMI 37.1
--- NOTE | 2024-04-03 15:36 | P.PCN_ITS ---
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 Today she rates her pain a 8 out of 10. Patient denies any new injury or trauma. She does state that she is staying very tense in her muscles in and around her neck. She describes it as a chronic achy sensation that does interfere with her ability to perform activities of daily living. Patient is prescribed Dilaudid 20 mg/mL with a daily dose of 5.25 mg/day and bupivacaine 8 mg/mL with a daily dose of 2.1 mg/day. She denies any side effects from this medication. Patient is also prescribed gabapentin 600 mg 3 times daily from our office and muscle relaxer. She denies any side effects from this medication. She does state that she feels like the gabapentin is not working as well and is asking whether or not if there is something she can switch to. Her George has been reviewed and is appropriate. Physical Exam: General: Alert and oriented x3, no acute distress, pleasant and cooperative Lungs: Respirations even and unlabored, symmetrical chest expansion Eyes: PERRL Musculoskeletal: Flexion and extension of lumbar [spine] somewhat guarded secondary to pain, [antalgic gait noted] point tenderness along bilateral cervical paraspinous, bilateral trapezius and bilateral rhomboid muscles Neurological: Speech clear, no gross sensory deficit Procedure Details:: Informed consent was obtained and the risk and benefits of the procedure were explained to the patient. Patient was taken to the procedure room where noninvasive monitoring was placed including noninvasive blood pressure cuff and pulse oximeter. Patient's pump was interrogated and was reprogrammed to Dilaudid 5.775 mg/day and bupivacaine 2.31 mg/day. The patient tolerated the procedure well with no complications. Plan and Disposition:: Patient tolerated her intrathecal increase with no complications and was discharged neurologically intact. I have discussed with the patient due to her point tenderness at multiple muscles that she may benefit from trigger point injections. Risk and benefits were discussed with patient and she would like to proceed forward with this plan of care. I have also counseled the patient if she would like to switch over to pregabalin we will have to titrate her gabapentin down. Patient acknowledges understanding and agrees with this plan of care. We will follow-up with her regarding this at future visits. We will see the patient back in the clinic at the next intrathecal refill. Patient has been instructed to contact the clinic with any concerns before the next appointment. Dr. Boyce has reviewed this note and agrees with this plan of care. This note was dictated using voice recognition software and make contain errors or omissions. -- It Is medically necessary for this patient to continue to have their intrathecal pump refilled at regular intervals. This patient had an intrathecal pain pump implanted after meeting criteria of chronic intractable pain for greater than 3 months and failing conservative treatments. Patient has committed and been compl iant to the treatment plan and all planned follow up care. Since implantation of the intrathecal pain pump, the patient has had decreased pain and been more functional. Oral medications have been reduced including intake of oral opioids. Patient continues to do well with intrathecal therapy with decrease in pain symptoms and increase in functional status. Stopping intrathecal medications can lead to life threatening withdrawal, seizures, cardiac arrest, severe pain, and possible . Pumps that are not refilled at regular intervals can be damages and cause and need for replacement. We continually titrate dose and concentration to optimize pain relief and function. We are limited in concentration for certain drugs to safely deliver medications through the pump and stay within the recommendations from the Polyanalges[employer] Consensus Committee Guidelines. Depending on dose and concentration these pumps may need to be refilled sooner than 3 months as we titrate.
== END 2024-04-03 23:59 | disposition home or self-care (01) ==
PROVIDERS: Visit Provider Nurse Practitioner Family
DX: M50.10 Cervical disc disorder with radiculopathy, unspecified cervical region (principal); M51.16 Intervertebral disc disorders with radiculopathy, lumbar region; M96.1 Postlaminectomy syndrome, not elsewhere classified; I73.00 Raynaud's syndrome without gangrene; G89.4 Chronic pain syndrome; M79.18 Myalgia, other site; Z97.8 Presence of other specified devices; Z45.1 Encounter for adjustment and management of infusion pump
CPT/HCPCS: 62368; 99212; G0463

== ENCOUNTER 2024-04-16 19:17 | Emergency (ER) | payer OTHER, SELFPAY ==
[2024-04-16 19:30] VITALS: BP 132/69; PULSE 83; RESP 20; TEMP 36.9; O2SAT 97; BMI 42.2
--- NOTE | 2024-04-16 19:55 | EXP.UTC ---
Discharge Plan Disposition Patient Disposition: Home, Self-Care Condition: Good Prescriptions Prescriptions: New prednisone 20 mg tablet 20 mg PO BID Qty: 10 0RF No Action levothyroxine [Synthroid] 137 mcg tablet 137 mcg PO DAILY calcium carbonate [Calcium 500] 500 mg calcium (1,250 mg) tablet,chewable 1,000 mg PO BID fenofibrate nanocrystallized 145 mg tablet 145 mg PO DAILY dexlansoprazole 60 mg capsule,biphase delayed releas 60 mg PO DAILYP PRN (Reason: stomach) Nurtec ODT 75 mg tablet,disintegrating 75 mg PO DAILY Patient Comments: DISSOLVE 1 TABLET BY MOUTH AT THE ONSET of a HEADACHE DIRECTED lorazepam 2 mg tablet 2 mg PO Q8H PRN (Reason: Anxiety) Patient Comments: TAKE 1/2 TO 1 TABLET BY MOUTH EVERY 8 HOURS NEEDED FOR ANXIETY ipratropium-albuterol 0.5 mg-3 mg(2.5 mg base)/3 mL solution for nebulization 3 ml IH QID PRN (Reason: shortness of breath or wheezing) 90 Days Qty: 270 3RF albuterol sulfate 90 mcg/actuation HFA aerosol inhaler 2 inh inhalation Q6H PRN (Reason: shortness of breath or wheezing) 90 Days Qty: 8.5 1RF bumetanide 1 mg tablet 2 mg PO DAILY Qty: 180 3RF Rx Instructions: TAKE ONE TABLET BY MOUTH DAILY NEEDED FOR EDEMA spironolactone 25 mg tablet See Rx Instructions .ROUTE .COMPLEX Qty: 180 3RF Dose Instruction: TAKE ONE TABLET BY MOUTH TWICE DAILY Rx Instructions: TAKE ONE TABLET BY MOUTH TWICE DAILY Entresto 24-26 mg tablet See Rx Instructions .ROUTE .COMPLEX Qty: 180 3RF Dose Instruction: TAKE ONE TABLET BY MOUTH TWICE DAILY Rx Instructions: TAKE ONE TABLET BY MOUTH TWICE DAILY carvedilol 12.5 mg tablet See Rx Instructions .ROUTE .COMPLEX Qty: 60 5RF Dose Instruction: TAKE ONE TABLET BY MOUTH TWICE DAILY --TAKE WITH A MEAL/FOOD-- Rx Instructions: TAKE ONE TABLET BY MOUTH TWICE DAILY --TAKE WITH A MEAL/FOOD-- hydrocortisone 5 mg tablet 5 mg PO BID Patient Comments: TAKE TWO TABLETS BY MOUTH EVERY MORNING AND TAKE ONE TABLET in THE afternoon --TAKE WITH FOOD-- promethazine 25 mg Tablet 25 mg PO Q6H PRN (Reason: Nausea And Vomiting) Dulera 50-5 mcg/actuation HFA aerosol inhaler 2 puff inhalation Q12H diazepam [Valium] 10 mg tablet 10 mg PO ONCE Qty: 1 0RF Rx Instructions: take 30 minutes prior to MRI orphenadrine citrate 100 mg tablet extended release 100 mg PO BID Qty: 60 2RF zolpidem 10 mg tablet 10 mg PO DAILY Patient Comments: TAKE 1 TABLET BY MOUTH AT NIGHT NEEDED FOR SLEEP doxycycline hyclate 100 mg tablet 100 mg PO BID Qty: 20 0RF mupirocin 2 % ointment 1 applic topical TID Qty: 22 0RF Rx Instructions: apply to wounds as directed bupivacaine (PF) 2.5 MG/ML solution 1.3 mg IT CONT Rx Instructions: medication delivered via intrathecal pain pump. actual concentration is 5mg/ml. total volume of pump is 20ml hydromorphone (PF) 1 MG/ML syringe 2.6 mg IT CONT Rx Instructions: medication delivered via intrathecal pain pump. actual concentration 10mg/ml. total volume of pump is 20ml tizanidine 6 mg capsule 6 mg PO HS PRN (Reason: muscle spasticity) Qty: 30 0RF diazepam 2 mg tablet 2 mg PO ONCE Qty: 1 0RF Rx Instructions: take 30minutes prior to MRI diclofenac sodium [Pennsaid] 20 mg/gram /actuation(2 %) solution in metered-dose pump 2 pump topical BID Qty: 1 2RF Rx Instructions: APPLY 2 PUMPS (40 MG) TO THE AFFECTED AREA TWO TIMES A DAY gabapentin 600 mg tablet 600 mg PO TID Qty: 90 2RF methocarbamol 1,000 mg tablet 1,000 mg PO TID Qty: 90 2RF oxycodone 5 mg tablet 5 mg PO Q8H PRN (Reason: pain) Qty: 10 0RF Referrals Follow up/Referrals: Provider,Referral, MD [Primary Care Provider] - See instructions Activity Restrictions/Add. Instructions Additional Instructions/Restrictions: follow up with pcp on return if symptoms worsen or do not improve Clinical Impressions Clinical Impression: Neck pain with history of cervical spinal surgery, Neuropathy Chronic low back pain Qualifiers: Back pain laterality: bilateral Sciatica presence: unspecified whether sciatica present Qualified Code(s): M54.5 - Low back pain Instructions Patient Instructions: DI for Chronic Pain -- Adult Discharge ED Provider: Clemencia ([facility])Michel [facility] [place] General Stated complaint: pain/numbness in both feet Mode of Arrival: Ambulatory Source of Information: Patient Limitations: No Limitations Time Seen by Provider: 04/16/24 19:55 Description of Symptoms (Recalled from Triage Doc. by RN): Pt has pain and numbness in ankles and feet. HEENT Symptoms (Recalled from RN notes): No Resp Symptoms (Recalled from RN notes): No Skin Symptoms (Recalled from RN notes): No MS Symptoms (Recalled from RN notes): Yes Functional Status (Recalled from RN notes): n/a History of Present Illness Provider Complaint: 53 yr old female presnets for pain and numbness in ankles and feet. pt states chronic back issues and over the last 2 weeks the pain and numbnes have returned. pt states she usually gets a steroid shot and oral steroids and it takes care of the flare until she can get into her dr. pt states she has had these issues for years andd has had numerous surgeries Related Data Home Medications Medication Instructions Recorded Confirmed levothyroxine 137 mcg tablet 137 mcg PO DAILY hypothyroidism 04/12/18 03/28/24 (Synthroid) dexlansoprazole 60 mg 60 mg PO DAILYP PRN stomach 01/23/21 03/28/24 capsule,biphase delayed release bupivacaine (PF) 0.25 % (2.5 1.3 mg intrathecal CONT chronic 02/24/21 03/28/24 mg/mL) injection solution pain hydromorphone (PF) 1 mg/mL 2.6 mg intrathecal CONT chronic 02/24/21 03/28/24 injection syringe pain rimegepant 75 mg disintegrating 75 mg PO DAILY migraines 10/06/21 03/28/24 tablet (Nurtec ODT) calcium carbonate (Calcium 500) 1,000 mg PO BID Supplement 12/24/21 03/28/24 lorazepam 2 mg tablet 2 mg PO Q8H PRN Anxiety 06/11/22 03/28/24 fenofibrate nanocrystallized 145 145 mg PO DAILY Cholesterol 06/19/22 03/28/24 mg tablet hydrocortisone 5 mg tablet 5 mg PO BID . 11/06/22 03/28/24 promethazine 25 mg tablet 25 mg PO Q6H PRN Nausea And 11/06/22 03/28/24 Vomiting mometasone-formoterol HFA 50 mcg-5 2 puff inhalation Q12H . 04/20/23 03/28/24 mcg/actuation aerosol inhaler (Dulera) zolpidem 10 mg tablet 10 mg PO DAILY 03/28/24 03/28/24 Previous Rx's Medication Instructions Recorded albuterol sulfate 90 mcg/actuation 2 inh inhalation Q6H PRN shortness 04/05/23 aerosol inhaler of breath or wheezing 90 days #8.5 grams ipratropium 0.5 mg-albuterol 3 mg 3 ml inhalation QID PRN shortness 04/05/23 (2.5 mg base)/3 mL nebulization of breath or wheezing 90 days #270 soln mL bumetanide 1 mg tablet 2 mg (2 x 1 mg) PO DAILY Fluid 04/16/23 #180 tabs tizanidine 6 mg capsule 6 mg PO HS PRN muscle spasticity 05/17/23 #30 caps diazepam 2 mg tablet 2 mg PO ONCE #1 tab 08/20/23 sacubitril 24 mg-valsartan 26 mg See Rx Instructions .Route 09/27/23 tablet (Entresto) .COMPLEX #180 tabs spironolactone 25 mg tablet See Rx Instructions .Route 09/27/23 .COMPLEX #180 tabs diazepam 10 mg tablet (Valium) 10 mg PO ONCE #1 tab 10/01/23 carvedilol 12.5 mg tablet See Rx Instructions .Route 10/29/23 .COMPLEX #60 tabs orphenadrine citrate 100 mg 100 mg PO BID #60 tabs 11/01/23 tablet,extended release diclofenac sodium 20 2 pump topical BID #1 ea 12/30/23 mg/gram/actuation (2 %) topical soln metered-dose pump (Pennsaid) gabapentin 600 mg tablet 600 mg PO TID Pain #90 tabs 02/14/24 methocarbamol 1,000 mg tablet 1,000 mg PO TID . #90 tabs 02/14/24 oxycodone 5 mg tablet 5 mg PO Q8H PRN pain #10 tabs 03/07/24 doxycycline hyclate 100 mg tablet 100 mg PO BID #20 tabs 03/28/24 mupirocin 2 % topical ointment 1 applic topical TID #22 grams 03/28/24 prednisone 20 mg tablet 20 mg PO BID #10 tabs 04/16/24 Allergies Allergy/AdvReac Type Severity Reaction Status Date / Time niacin [NIACIN] Allergy Severe S-DIFF. Verified 04/16/24 19:52 BREATHING Penicillins [PENICILLINS] Allergy Intermediate I-HIVES Verified 04/16/24 19:52 ondansetron Allergy Mild ABD PAIN Verified 04/16/24 19:52 [From ZOFRAN ( HYDROCHLORIDE)] clindamycin Allergy Verified 04/16/24 19:52 metoclopramide [From Reglan] Allergy NAUSEA / Verified 04/16/24 19:52 VOMITING sulfamethoxazole Allergy Verified 04/16/24 19:52 [From Bactrim] trimethoprim [From Bactrim] Allergy Verified 04/16/24 19:52 vancomycin Allergy Redness of Verified 04/16/24 19:52 Skin prochlorperazine AdvReac Severe Verified 04/16/24 19:52 [From Compazine] Worker's Comp Is this a Worker's Comp case?: No [facility] Disclaimer: The information contained in this section may have been updated after the patient was seen, as this information can be updated by other users. Medical History , [employer]) Dark urine Diastolic congestive heart failure Chest pain Nocturnal hypoxia History of 2019 novel coronavirus disease (COVID-19) Pulmonary fibrosis, unspecified Asthma Abdominal bloating Hypothyroid Pelvic pressure in female Implantable intrathecal infusion pump present Gastroparesis Follow-up exam Thickened endometrium Morbid obesity due to excess calories ILD (interstitial lung disease) Nocturnal hypoxemia History of 2019 novel coronavirus disease (COVID-19) Abnormal computerized axial tomography of chest History of environmental allergies Family history of asthma Dyspnea on exertion Moderate persistent asthma Family history of atrial fibrillation Palpitations HTN (hypertension) HLD (hyperlipidemia) Daytime somnolence Edema Surgical History , [employer]) History of foot surgery History of surgery Hx of fusion of cervical spine History of cervical discectomy H/O brain surgery H/O myomectomy Status post lumbar spine surgery for decompression of spinal cord History of tubal ligation History of esophagogastroduodenoscopy (EGD) History of section History of colonoscopy Hx of cholecystectomy History of cardiac cath Family History , [employer]) Family history of breast cancer Lung cancer Grandfather COPD (chronic obstructive pulmonary disease) Grandmother Mother Asthma Grandmother Mother Social History , [employer]) Smoking Status: Never smoker second hand exposure: No alcohol intake: never substance use type: denies use current occupational status: unemployed Travel in the last 8 weeks: None household members: other housing: house lives independently: Yes marital status: single current occupational exposures/hazards: No caffeine: Yes special bridgette needs: No agree to transfusion: No do you feel safe at home: Yes victim of physical abuse: No victim of emotional abuse: No victim of sexual abuse: No would you like helpful sources: No ROS Obtained: Yes All systems reviewed & no additional complaints except as documented Constitutional Constitutional: Reports system reviewed and no additional complaints, except as documented Eyes Eyes: Reports system reviewed and no additional complaints, except as documented ENT Ears, Nose, Mouth, and Throat: Reports system reviewed and no additional complaints, except as documented and Reports neck pain Cardiovascular Cardiovascular: Reports system reviewed and no additional complaints, except as documented Respiratory Respiratory: Reports system reviewed and no additional complaints, except as documented Gastrointestinal Gastrointestingal: Reports system reviewed and no additional complaints, except as documented Musculoskeletal Musculoskeletal: Reports system reviewed and no additional complaints, except as documented, Reports as per HPI, Reports arthralgias, Reports back pain, Reports joint stiffness, Reports neck pain, Reports numbness and Reports tingling Integumentary/Breasts Skin/Breast: Reports system reviewed and no additional complaints, except as documented Neurologic Neurologic: Reports system reviewed and no additional complaints, except as documented, Reports numbness and Reports tingling Hematologic/Lymphatic Henatologic/Lymphatic: Reports system reviewed and no additional complaints, except as documented Allergic/Immunologic Allergic/Immunologic: Reports system reviewed and no additional complaints, except as documented Physical Exam General General appearance: alert and in no apparent distress Head Head exam: atraumatic Eye Eye exam: Present normal appearance and PERRL ENT ENT exam: Present normal exam Respiratory Respiratory exam: Present normal lung sounds bilaterally Cardiovascular Cardiovascular exam: Present regular rate and normal rhythm Extremities Exam Extremities exam: Present normal inspection Back Exam Back exam: Present full ROM Neurological Exam Neurological exam: Present alert and oriented X3 Psychiatric Psychiatric exam: Present normal affect Skin Skin exam: Present warm Lymphatic Lymphatic Findings: no adenopathy Medical Decision Making Medical Records Medical records reviewed: Yes I reviewed the patient's medical records. George Inquiry Pt receiving controlled substance: No George was queried for this patient: No Vital Signs: 04/16/24 19:30 Temperature 98.4 F Temperature Source Oral Pulse Rate [Right Radial] 83 Respiratory Rate 20 Blood Pressure [Right Arm] 132/69 Blood Pressure Mean [Right Arm] 90 Blood Pressure Source [Right Arm] Automatic Cuff Blood Pressure Position [Right Arm] Sitting 02 Sat by Pulse Oximetry 97 Oxygen Delivery Method Room Air
[2024-04-16] MEDS: DEXAMETHASONE 4MG/ML 1ML VIAL 4 MG IM (20:05)
[2024-04-16 20:21] VITALS: BP 132/69; PULSE 83; RESP 20; TEMP 36.9; O2SAT 97
== END 2024-04-16 20:21 | disposition home or self-care (01) ==
PROVIDERS: Emergency Provider Nurse Practitioner Family
DX: M54.2 Cervicalgia (principal); G62.9 Polyneuropathy, unspecified; M54.59 Other low back pain
CPT/HCPCS: 96372; 99212; 99214; G0463

== ENCOUNTER 2024-04-25 13:33 | Day surgery (SDC) | payer OTHER, SELFPAY ==
[2024-04-25 13:51] VITALS: BP 120/64; PULSE 73; RESP 18; TEMP 36.7; O2SAT 98; BMI 40.3
[2024-04-25] MEDS: LIDOCAINE 1% 5ML PF VIAL 5 ML (13:52)
[2024-04-25] MEDS: methylPREDNISolone ACETATE 80MG/ML VIAL 80 MG (13:52)
[2024-04-25] MEDS: BUPIVACAINE 0.25% 10ML INJ 25 MG IJ (13:52)
[2024-04-25 13:53] VITALS: BP 119/53; PULSE 75; RESP 18; O2SAT 96
--- NOTE | 2024-04-25 13:57 | EXP.PAIN.PRO ---
Procedure Date: 04/25/24 Time: 14:00 Anesthesiologist:: Otf Sherman CRNA Complications:: None Pre-procedure Diagnosis:: Myofascial pain bilateral trapezius, bilateral cervical paraspinous muscle, bilateral rhomboid. Post-procedure Diagnosis:: Same. Indications for Procedure:: Patient is a 53-year-old female comes our clinic today for trigger point injections secondary to myofascial pain bilateral posterior cervical paraspinous muscles, bilateral rhomboids. Patient describes the pain in these areas as constant, sharp, stabbing at times. She rates her pain 8/10. Procedure Details:: Details of the procedure explained to the patient. The patient taken procedure room placed in the sitting position. The area over the bilateral trapezius and bilateral rhomboids was cleaned using chlorhexidine as a cleansing solution. Using 25-gauge inch and half needle 3 areas of the right trapezius muscle was infiltrated after negative aspiration with 2 cc of 1% lidocaine and 5 mg of Depo-Medrol. The same procedure was carried out over the left trapezius muscle. Also, the right rhomboid was injected into separate areas with 2 cc of 1% lidocaine and 5 mg of Depo-Medrol at each area. The left rhomboid was injected in the same manner. Patient tolerated procedure without difficulty. No complications. Plan and Disposition:: Patient was discharged without incident.
[2024-04-25 13:58] VITALS: BP 119/53; PULSE 75; RESP 18; O2SAT 96
[2024-04-25 14:05] VITALS: BP 148/70; PULSE 75; RESP 18; TEMP 36.7; O2SAT 98
== END 2024-04-25 14:05 | disposition home or self-care (01) ==
PROVIDERS: PCP Family Medicine; Visit Provider Nurse Anesthetist, Certified Registered
DX: M79.18 Myalgia, other site (principal)
CPT/HCPCS: 20553; J1010

== ENCOUNTER 2024-05-08 15:03 | Outpatient (RCR) | payer OTHER, SELFPAY | END 2024-05-08 16:00 | disposition home or self-care (01) | LOC: OT 15:03 | PROVIDERS: Visit Provider Family Medicine | DX: I73.00 Raynaud's syndrome without gangrene (principal); R23.4 Changes in skin texture; R60.0 Localized edema | CPT/HCPCS: 97165; 97530 ==

== ENCOUNTER 2024-05-15 13:17 | Outpatient (POV) | payer OTHER, SELFPAY ==
--- NOTE | 2024-05-15 13:22 | A.OFFVIS_ITS ---
[facility] Pain Management SOAP Note Subjective:: Patient is a pleasant 53-year-old female who presents today for telehealth follow-up trigger point injections on 04/25/2024. Today she rates her pain a 9 out of 10. Patient denies any new injury or trauma. She does state that she had significant improvement following her trigger point injections of at least 45 to 50%. She states that they really have helped her tense muscles. She does however state she still continues to have her chronic pain and feels like it just continues to worsen over time. Patient states that the numbness in her arms and hands is very unbearable. It interferes with all of her activities. Patient is scheduled for her stimulator trial this coming Wednesday. Patient is prescribed Dilaudid 20 mg/mL with a daily dose of 5.25 mg/day and bupivacaine 8 mg/mL with a daily dose of 2.1 mg/day. She denies any side effects from this medication. Patient is also prescribed gabapentin 600 mg 3 times daily from our office and muscle relaxer. She denies any side effects from this medication. We did talk in the past about tapering her gabapentin to Lyrica. She states that she is still interested in this possibility. Her George has been reviewed and is appropriate. Review of Systems: General: No recent weight changes, no fever, no sleep disturbances Respiratory: No cough, no shortness of air, no recurring pulmonary infections Cardiovascular/peripheral vascular: No chest pain, no palpitations, no edema, no shortness of breath Gastrointestinal: No new onset incontinence, normal bowel movements reported Genitourinary: No new onset incontinence Musculoskeletal: Neck pain, arm pain Psychiatric: [Normal mood/affect] Neurological: [Denies weakness in extremities], [denies balance issues] Objective:: General: Alert and oriented x3, pleasant and cooperative Lungs: Patient is able to say complete sentences without dyspnea Neurological: Speech clear Telehealth Assessment:: 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 I did discuss with the patient regarding still tapering her gabapentin to switch over to the Lyrica and see if it is more beneficial. Patient states that she really only takes her gabapentin twice a day and I have discussed with her that we would have to decrease 1 tablet at least a week in between to make sure that she has a safe taper in order to switch her to the pregabalin. Patient states she will let us know if she would like to proceed forward with this option. Patient is scheduled to come in on Wednesday for her spinal cord stimulator trial. Patient has been instructed to contact the clinic with any concerns before the next appointment. Dr. Boyce has reviewed this note and agrees with this plan of care. This note was dictated using voice recognition software and make contain errors or omissions. -- It Is medically necessary for this patient to continue to have their intrathecal pump refilled at regular intervals. This patient had an intrathecal pain pump implanted after meeting criteria of chronic intractable pain for greater than 3 months and failing conservative treatments. Patient has committed and been compliant to the treatment plan and all planned follow up care. Since implantation of the intrathecal pain pump, the patient has had decreased pain and been more functional. Oral medications have been reduced including intake of oral opioids. Patient continues to do well with intrathecal therapy with decrease in pain symptoms and increase in functional status. Stopping intrathecal medications can lead to life threatening withdrawal, seizures, cardiac arrest, severe pain, and possible . Pumps that are not refilled at regular intervals can be damages and cause and need for replacement. We continually titrate dose and concentration to optimize pain relief and function. We are limited in concentration for certain drugs to safely deliver medications through the pump and stay within the recommendations from the Polyanalgesic Consensus Committee Guidelines. Depending on dose and concentration these pumps may need to be refilled sooner than 3 months as we titrate. This visit did last from [id number] [facility] Disclaimer: The information contained in this section may have been updated after the patient was seen, as this information can be updated by other users. Medical History Dark urine Diastolic congestive heart failure Chest pain Nocturnal hypoxia History of 2019 novel coronavirus disease (COVID-19) Pulmonary fibrosis, unspecified Asthma Abdominal bloating Hypothyroid Pelvic pressure in female Implantable intrathecal infusion pump present Gastroparesis Follow-up exam Thickened endometrium Morbid obesity due to excess calories ILD (interstitial lung disease) Nocturnal hypoxemia History of 2019 novel coronavirus disease (COVID-19) Abnormal computerized axial tomography of chest History of environmental allergies Family history of asthma Dyspnea on exertion Moderate persistent asthma Family history of atrial fibrillation Palpitations HTN (hypertension) HLD (hyperlipidemia) Daytime somnolence Edema Surgical History History of foot surgery History of surgery pain pump placement Hx of fusion of cervical spine History of cervical discectomy H/O brain surgery H/O myomectomy Status post lumbar spine surgery for decompression of spinal cord History of tubal ligation History of esophagogastroduodenoscopy (EGD) History of section History of colonoscopy Hx of cholecystectomy History of cardiac cath Family History Grandmother COPD (chronic obstructive pulmonary disease) Asthma Mother COPD (chronic obstructive pulmonary disease) Asthma Grandfather Lung cancer Other Family history of breast cancer Social History Smoking Status: Never smoker second hand exposure: No alcohol intake: never substance use type: denies use current occupational status: unemployed Travel in the last 8 weeks: None household members: other housing: house lives independently: Yes marital status: single current occupational exposures/hazards: No caffeine: Yes special bridgette needs: No agree to transfusion: No do you feel safe at home: Yes victim of physical abuse: No victim of emotional abuse: No victim of sexual abuse: No would you like helpful sources: No
== END 2024-05-15 23:59 | disposition home or self-care (01) ==
LOC: SC.PAIN 13:17
PROVIDERS: Visit Provider Nurse Practitioner Family
DX: G89.4 Chronic pain syndrome (principal); M50.10 Cervical disc disorder with radiculopathy, unspecified cervical region
CPT/HCPCS: 99212; G0463

== ENCOUNTER 2024-05-23 13:02 | Day surgery (SDC) | payer OTHER, SELFPAY ==
[2024-05-23 13:16] VITALS: BP 124/73; PULSE 80; RESP 18; O2SAT 95; BMI 40.3
[2024-05-23 13:45] VITALS: BP 105/63; PULSE 72; RESP 18
--- NOTE | 2024-05-23 13:52 | EXP.PAIN.PRO ---
Procedure Date: 05/23/24 Time: 13:20 Anesthesiologist:: Otf Sherman CRNA Complications:: None Pre-procedure Diagnosis:: Degenerative disc lumbar spine multilevels. Lumbar radiculopathy. Lumbar postlaminectomy syndrome. Degenerative disc cervical spine multilevels. Cervical radiculopathy. Myofascial pain. Chronic pain syndrome. Post-procedure Diagnosis:: Same. Indications for Procedure:: Patient is a 53-year-old female comes our clinic today for intrathecal pain pump interrogation refill. She is currently being managed with hydromorphone 20 mg/mL at 5.7750 mg/day. And, bupivacaine 8 mg/mL at 2.3100 mg/day. Patient is requesting an increase in her rate today due to continued cervical pain/cervical radiculopathy as well as lumbar pain with lumbar radicular symptoms. I will increase the patient's rate by 20%. Procedure Details:: Details of the procedure explained to the patient. The patient taken procedure and placed in prone position on the fluoroscopy table. Using fluoroscopy guidance the intrathecal pain pump was accessed with ease using a 22-gauge inch and half needle. 3 mL of solution was withdrawn discarded appropriate. The pump was then filled with 20 cc of a solution containing hydromorphone 20 mg/mL and bupivacaine 8 mg/mL. The new rate will be hydromorphone 6.3500 mg/day and bupivacaine 2.54 mg/day. Patient tolerated procedure without difficulty. No complications. Plan and Disposition:: Patient was discharged without incident.
== END 2024-05-23 13:46 | disposition home or self-care (01) ==
PROVIDERS: PCP Family Medicine; Visit Provider Nurse Anesthetist, Certified Registered
DX: G89.4 Chronic pain syndrome (principal); M54.12 Radiculopathy, cervical region
CPT/HCPCS: 95991

== ENCOUNTER 2024-06-12 10:23 | Emergency (ER) | payer OTHER, SELFPAY ==
[2024-06-12 10:33] VITALS: BP 104/44; PULSE 70; O2SAT 94
[2024-06-12 10:34] VITALS: BP 106/53; PULSE 65; O2SAT 94
[2024-06-12 10:35] VITALS: BP 106/53; PULSE 62; RESP 18; O2SAT 94; BMI 34.7
--- NOTE | 2024-06-12 11:16 | PC.NURSE ---
DR MORENO AT BEDSIDE
--- NOTE | 2024-06-12 11:21 | CT_ITS ---
FINAL REPORT TECHNIQUE: Thin section axial CT with sagittal reconstruction without contrast CLINICAL HISTORY: worsening chronic pain COMPARISON: CT myelogram dated 02/29/2024 FINDINGS: There is no acute fracture. There is severe kyphosis at the C2-C4 levels. There are postoperative changes from fusion from C5-C7. Status post laminectomy of C1-C7. The spinal canal is partially obscured by postoperative changes. IMPRESSION: Extensive chronic changes as above appear similar to CT cervical spine myelogram from 3 months prior. The thecal sac and spinal cord are not as well-visualized on this exam. Reviewed, Interpreted and Dictated by Srini Garcia MD Transcribed by Karen Newsome Authenticated and [facility]
[2024-06-12 11:30] LABS: Chloride 102 mmol/L (98-107)
[2024-06-12 11:31] LABS: Potassium 3.7 mmoL/L (3.5-5.1); Sodium 141 mmol/L (136-145)
[2024-06-12 11:33] LABS: Alanine Aminotransferase 32 U/L (12-78); Alkaline Phosphatase 69 U/L (38-126); Aspartate Amino Transferase 43 U/L (14-36); Bilirubin,Total 0.3 mg/dl (0.2-1.3); Blood Urea Nitrogen 34 mg/dl (7-17); Creatinine Clearance Estimated 140 mL/min (50-200); Estimated Glomerular Filt Rate 87 ml/min (>60); GFR (African American) 105 ML/MIN (>60)
[2024-06-12 11:34] LABS: Albumin Level 4.3 g/dl (3.5-5.0); Albumin/Globulin Ratio 1.3 (1.1-1.8); Anion Gap 8.7 mEq/L (5-15); Calcium 9.6 mg/dl (8.4-10.2); Carbon Dioxide 34 mmol/L (22.0-30.0); Globulin 3.2 g/dL (1.3-3.2); Glucose 108 mg/dl (74-100); Total Protein,Serum 7.5 g/dl (6.3-8.2)
--- NOTE | 2024-06-12 11:39 | PC.NURSE ---
PT AMBULATING IN [place] WITH SPOUSE
[2024-06-12 11:41] LABS: Basophils # 0.2 K/mm3 (0-0.2); Basophils % 2.6 % (0.1-2.0); Eosinophils # 0.1 K/mm3 (0.0-0.4); Eosinophils % 2.1 % (0.1-12.0); Hematocrit 38.4 % (37.0-47.0); Hemoglobin 12.3 g/dL (12.2-16.2); Lymphocytes # 1.7 K/mm3 (0.7-4.5); Lymphocytes % 30.5 % (10-50); Mean Corpuscular HGB Conc 31.9 g/dL (31.8-35.4); Mean Corpuscular Hemoglobin 29.9 pg (27.0-31.2); Mean Corpuscular Volume 93.7 fl (81-99); Mean Platelet Volume 10.2 fl (7.4-10.4); Monocytes # 0.5 K/mm3 (0.1-1.0); Monocytes % 7.9 % (1.7-9.3); Neutrophils # 3.3 K/mm3 (1.8-7.8); Neutrophils % 56.9 % (37.0-80.0); Platelet Count 195 K/mm3 (142-424); Red Blood Count 4.09 M/mm3 (4.20-5.40); Red Cell Distribution Width 15.9 % (11.5-17.5); White Blood Count 5.7 K/mm3 (4.8-10.8)
--- NOTE | 2024-06-12 11:41 | HMH.EDGENADL ---
Discharge Plan Disposition Patient Disposition: Home, Self-Care Condition: Good Prescriptions Prescriptions: New methocarbamol 750 mg tablet 750 mg PO Q8H PRN (Reason: pain) Qty: 20 0RF lidocaine [Lidoderm] 5 % adhesive patch,medicated 1 patch topical DAILY Qty: 15 0RF Rx Instructions: leave on most painful area for up to 12 hrs No Action levothyroxine [Synthroid] 137 mcg tablet 137 mcg PO DAILY calcium carbonate [Calcium 500] 500 mg calcium (1,250 mg) tablet,chewable 1,000 mg PO BID fenofibrate nanocrystallized 145 mg tablet 145 mg PO DAILY clonidine HCl 0.1 mg tablet 0.1 mg PO TID PRN (Reason: hypertensive emergency) Qty: 90 3RF dexlansoprazole 60 mg capsule,biphase delayed releas 60 mg PO DAILYP PRN (Reason: stomach) Nurtec ODT 75 mg tablet,disintegrating 75 mg PO DAILY Patient Comments: DISSOLVE 1 TABLET BY MOUTH AT THE ONSET of a HEADACHE DIRECTED lorazepam 2 mg tablet 2 mg PO Q8H PRN (Reason: Anxiety) Patient Comments: TAKE 1/2 TO 1 TABLET BY MOUTH EVERY 8 HOURS NEEDED FOR ANXIETY ipratropium-albuterol 0.5 mg-3 mg(2.5 mg base)/3 mL solution for nebulization 3 ml IH QID PRN (Reason: shortness of breath or wheezing) 90 Days Qty: 270 3RF albuterol sulfate 90 mcg/actuation HFA aerosol inhaler 2 inh inhalation Q6H PRN (Reason: shortness of breath or wheezing) 90 Days Qty: 8.5 1RF bumetanide 1 mg tablet 2 mg PO DAILY Qty: 180 3RF Rx Instructions: TAKE ONE TABLET BY MOUTH DAILY NEEDED FOR EDEMA spironolactone 25 mg tablet See Rx Instructions .ROUTE .COMPLEX Qty: 180 3RF Dose Instruction: TAKE ONE TABLET BY MOUTH TWICE DAILY Rx Instructions: TAKE ONE TABLET BY MOUTH TWICE DAILY Entresto 24-26 mg tablet See Rx Instructions .ROUTE .COMPLEX Qty: 180 3RF Dose Instruction: TAKE ONE TABLET BY MOUTH TWICE DAILY Rx Instructions: TAKE ONE TABLET BY MOUTH TWICE DAILY carvedilol 12.5 mg tablet See Rx Instructions .ROUTE .COMPLEX Qty: 180 1RF Dose Instruction: TAKE ONE TABLET BY MOUTH TWICE DAILY --TAKE WITH A MEAL/FOOD-- Rx Instructions: TAKE ONE TABLET BY MOUTH TWICE DAILY --TAKE WITH A MEAL/FOOD-- Dulera 50-5 mcg/actuation HFA aerosol inhaler 2 puff inhalation Q12H Qty: 13 3RF promethazine 25 mg Tablet 25 mg PO Q6H PRN (Reason: Nausea And Vomiting) hydrocortisone 5 mg tablet 15 mg PO BID Patient Comments: TAKE TWO TABLETS BY MOUTH EVERY MORNING AND TAKE ONE TABLET in THE afternoon --TAKE WITH FOOD-- Dulera 50-5 mcg/actuation HFA aerosol inhaler 2 puff inhalation Q12H zolpidem 10 mg tablet 10 mg PO DAILY Patient Comments: TAKE 1 TABLET BY MOUTH AT NIGHT NEEDED FOR SLEEP mupirocin 2 % ointment 1 applic topical TID Qty: 22 0RF Rx Instructions: apply to wounds as directed bupivacaine (PF) 2.5 MG/ML solution 1.3 mg IT CONT Rx Instructions: medication delivered via intrathecal pain pump. actual concentration is 5mg/ml. total volume of pump is 20ml hydromorphone (PF) 1 MG/ML syringe 2.6 mg IT CONT Rx Instructions: medication delivered via intrathecal pain pump. actual concentration 10mg/ml. total volume of pump is 20ml diclofenac sodium [Pennsaid] 20 mg/gram /actuation(2 %) solution in metered-dose pump 2 pump topical BID Qty: 1 2RF Rx Instructions: APPLY 2 PUMPS (40 MG) TO THE AFFECTED AREA TWO TIMES A DAY pregabalin [Lyrica] 75 mg capsule 75 mg PO TID Qty: 42 0RF methocarbamol 1,000 mg tablet 1,000 mg PO TID PRN (Reason: .) Qty: 90 2RF Referrals Follow up/Referrals: Gayla Galan MD [Primary Care Provider] - See instructions Activity Restrictions/Add. Instructions Additional Instructions/Restrictions: You were evaluated in the emergency department today. Please follow-up very closely with your primary care provider, your painter rough, and your spine physician. Return to the emergency department for new or worsening symptoms. Continue taking your pain medications and using your pain pump at home. Clinical Impressions Clinical Impression: Chronic neck pain Instructions Patient Instructions: DI for Chronic Pain -- Adult Discharge ED Provider: Cristela Le General Adult HPI General Chief complaint: PAIN Stated complaint: Pain in neck and back, hands turning purple Time Seen by Provider: 06/12/24 10:31 Mode of Arrival: Wheelchair Limitations: No Limitations Description of Symptoms (Recalled from ER Triage Doc. by RN): Pt c/o of neck, back and leg pain. Pt has chronic pain and currently has a dilaudid pain pump and is currently followed by Dr. Boyce with pain management. History of Present Illness HPI narrative: This patient is a 53-year-old female with a history of chronic neck pain with pain pump in place, adjustment disorder with anxious mood, hypothyroidism, gastroparesis, hypertension, hyperlipidemia, and spine surgeries in the past presenting to the emergency department for evaluation with concern for worsening of chronic pain. Patient states that her neck pain is progressively worsened over the last week, but seemed much worse today. She states that she chronically has crackling in her neck whenever she turns her head, but it seems to be worse today. No recent falls or injuries. She follows with pain management. She states she was previously seeing a spine doctor who stopped seeing her because he said there was nothing he could do. She denies any significant new symptoms, such as new paresthesias or other concerns. Related Data Home Medications Medication Instructions Recorded Confirmed levothyroxine 137 mcg tablet 137 mcg PO DAILY hypothyroidism 04/12/18 05/23/24 (Synthroid) dexlansoprazole 60 mg 60 mg PO DAILYP PRN stomach 01/23/21 05/23/24 capsule,biphase delayed release bupivacaine (PF) 0.25 % (2.5 1.3 mg intrathecal CONT chronic 02/24/21 05/23/24 mg/mL) injection solution pain hydromorphone (PF) 1 mg/mL 2.6 mg intrathecal CONT chronic 02/24/21 05/23/24 injection syringe pain rimegepant 75 mg disintegrating 75 mg PO DAILY migraines 10/06/21 05/23/24 tablet (Nurtec ODT) calcium carbonate (Calcium 500) 1,000 mg PO BID Supplement 12/24/21 05/23/24 lorazepam 2 mg tablet 2 mg PO Q8H PRN Anxiety 06/11/22 05/23/24 fenofibrate nanocrystallized 145 145 mg PO DAILY Cholesterol 06/19/22 05/23/24 mg tablet promethazine 25 mg tablet 25 mg PO Q6H PRN Nausea And 11/06/22 05/23/24 Vomiting mometasone-formoterol HFA 50 mcg-5 2 puff inhalation Q12H . 04/20/23 05/23/24 mcg/actuation aerosol inhaler (Dulera) zolpidem 10 mg tablet 10 mg PO DAILY 03/28/24 05/23/24 hydrocortisone 5 mg tablet 15 mg PO BID . 05/04/24 05/23/24 Previous Rx's Medication Instructions Recorded albuterol sulfate 90 mcg/actuation 2 inh inhalation Q6H PRN shortness 04/05/23 aerosol inhaler of breath or wheezing 90 days #8.5 grams ipratropium 0.5 mg-albuterol 3 mg 3 ml inhalation QID PRN shortness 04/05/23 (2.5 mg base)/3 mL nebulization of breath or wheezing 90 days #270 soln mL bumetanide 1 mg tablet 2 mg (2 x 1 mg) PO DAILY Fluid 04/16/23 #180 tabs sacubitril 24 mg-valsartan 26 mg See Rx Instructions .Route 09/27/23 tablet (Entresto) .COMPLEX #180 tabs spironolactone 25 mg tablet See Rx Instructions .Route 09/27/23 .COMPLEX #180 tabs diclofenac sodium 20 2 pump topical BID #1 ea 12/30/23 mg/gram/actuation (2 %) topical soln metered-dose pump (Pennsaid) mupirocin 2 % topical ointment 1 applic topical TID #22 grams 03/28/24 carvedilol 12.5 mg tablet See Rx Instructions .Route 05/04/24 .COMPLEX #180 tabs clonidine HCl 0.1 mg tablet 0.1 mg PO TID PRN hypertensive 05/04/24 emergency #90 tabs methocarbamol 1,000 mg tablet 1,000 mg PO TID PRN . #90 tabs 05/29/24 pregabalin 75 mg capsule (Lyrica) 75 mg PO TID #42 caps 05/29/24 mometasone-formoterol HFA 50 mcg-5 2 puff inhalation Q12H #13 grams 06/07/24 mcg/actuation aerosol inhaler (Dulera) lidocaine 5 % topical patch 1 patch topical DAILY #15 ea 06/12/24 (Lidoderm) methocarbamol 750 mg tablet 750 mg PO Q8H PRN pain #20 tabs 06/12/24 Allergies Allergy/AdvReac Type Severity Reaction Status Date / Time niacin [NIACIN] Allergy Severe S-DIFF. Verified 05/23/24 13:28 BREATHING Penicillins [PENICILLINS] Allergy Intermediate I-HIVES Verified 05/23/24 13:28 ondansetron Allergy Mild ABD PAIN Verified 05/23/24 13:28 [From ZOFRAN ( HYDROCHLORIDE)] clindamycin Allergy Verified 05/23/24 13:28 metoclopramide [From Reglan] Allergy NAUSEA / Verified 05/23/24 13:28 VOMITING sulfamethoxazole Allergy Verified 05/23/24 13:28 [From Bactrim] trimethoprim [From Bactrim] Allergy Verified 05/23/24 13:28 vancomycin Allergy Redness of Verified 05/23/24 13:28 Skin prochlorperazine AdvReac Severe Verified 05/23/24 13:28 [From Compazine] [facility] Disclaimer: The information contained in this section may have been updated after the patient was seen, as this information can be updated by other users. Medical History Dark urine Diastolic congestive heart failure Chest pain Nocturnal hypoxia History of 2019 novel coronavirus disease (COVID-19) Pulmonary fibrosis, unspecified Asthma Abdominal bloating Hypothyroid Pelvic pressure in female Implantable intrathecal infusion pump present Gastroparesis Follow-up exam Thickened endometrium Morbid obesity due to excess calories ILD (interstitial lung disease) Nocturnal hypoxemia History of 2019 novel coronavirus disease (COVID-19) Abnormal computerized axial tomography of chest History of environmental allergies Family history of asthma Dyspnea on exertion Moderate persistent asthma Family history of atrial fibrillation Palpitations HTN (hypertension) HLD (hyperlipidemia) Daytime somnolence Edema Surgical History History of foot surgery History of surgery Hx of fusion of cervical spine History of cervical discectomy H/O brain surgery H/O myomectomy Status post lumbar spine surgery for decompression of spinal cord History of tubal ligation History of esophagogastroduodenoscopy (EGD) History of section History of colonoscopy Hx of cholecystectomy History of cardiac cath Family History Grandmother COPD (chronic obstructive pulmonary disease) Asthma Mother COPD (chronic obstructive pulmonary disease) Asthma Grandfather Lung cancer Other Family history of breast cancer Social History Smoking Status: Never smoker second hand exposure: No alcohol intake: never substance use type: denies use current occupational status: unemployed Travel in the last 8 weeks: None household members: other housing: house lives independently: Yes marital status: single current occupational exposures/hazards: No caffeine: Yes special bridgette needs: No agree to transfusion: No do you feel safe at home: Yes victim of physical abuse: No victim of emotional abuse: No victim of sexual abuse: No would you like helpful sources: No ROS Obtained: Yes All systems reviewed & no additional complaints except as documented Physical Exam General General appearance: alert and in no apparent distress Head Head exam: atraumatic and normocephalic Eye Eye exam: Present normal appearance, PERRL and EOMI ENT ENT exam: Present normal exam, normal oropharynx, mucous membranes moist and normal external ear exam Neck Neck exam: Present trachea midline and tenderness; Absent full ROM (limited ROM 2/2 pain) Chest Chest inspection: Present normal inspection and symmetric chest wall rise; Absent tenderness Respiratory Respiratory exam: Present normal lung sounds bilaterally; Absent respiratory distress, wheezes, stridor or accessory muscle use Cardiovascular Cardiovascular exam: Present regular rate and normal rhythm Abdominal Exam Abdominal exam: Present soft; Absent distention, tenderness or guarding Extremities Exam Extremities exam: Present normal inspection, full ROM and normal capillary refill; Absent tenderness or edema Back Exam Back exam: Present normal inspection and full ROM; Absent tenderness Neurological Exam Neurological exam: Present alert, oriented X3, CN II-XII intact and normal gait; Absent motor sensory deficit Psychiatric Psychiatric exam: Present normal affect and normal mood Skin Skin exam: Present warm and dry Medical Decision Making Medical Records Medical records reviewed: Yes I reviewed the patient's medical records. George Inquiry Pt receiving controlled substance: No Vital Signs: 06/12/24 10:33 06/12/24 10:34 06/12/24 10:35 Temperature Temperature Source Pulse Rate 70 65 Pulse Rate [Right Brachial] 62 Respiratory Rate 18 Blood Pressure 104/44 L 106/53 L Blood Pressure [Right Arm] 106/53 L Blood Pressure Mean 62 59 Blood Pressure Mean [Right Arm] 70 02 Sat by Pulse Oximetry 94 L 94 L 94 L Oxygen Delivery Method Room Air Room Air Room Air 06/12/24 12:37 06/12/24 14:12 Temperature 98.0 F Temperature Source Oral Pulse Rate 52 L 59 L Pulse Rate [Right Brachial] Respiratory Rate 15 Blood Pressure 93/55 L Blood Pressure [Right Arm] Blood Pressure Mean Blood Pressure Mean [Right Arm] 02 Sat by Pulse Oximetry 96 Oxygen Delivery Method Room Air Room Air Lab Data Lab results reviewed: Yes I reviewed the patient's lab results. Lab Results 06/12/24 10:39: WBC 5.7, RBC 4.09 L, Hgb 12.3, Hct 38.4, MCV 93.7, MCH 29.9, MCHC 31.9, RDW 15.9, Plt Count 195, MPV 10.2, Neut % (Auto) 56.9, Lymph % (Auto) 30.5, Parke % (Auto) 7.9, Eos % (Auto) 2.1, Baso % (Auto) 2.6 H, Neut # (Auto) 3.3, Lymph # (Auto) 1.7, Parke # (Auto) 0.5, Eos # (Auto) 0.1, Baso # (Auto) 0.2, PT 10.9, INR 0.97, Sodium 141, Potassium 3.7, Chloride 102, Carbon Dioxide 34 H, Anion Gap 8.7, BUN 34 H, Creatinine 0.70, Estimated Creat Clear 140, Estimated GFR 87, Est GFR ( Amer) 105, Glucose 108 H, Calcium 9.6, Total Bilirubin 0.3, AST 43 H, ALT 32, Alkaline Phosphatase 69, Total Protein 7.5, Albumin 4.3, Globulin 3.2, Albumin/Globulin Ratio 1.3 06/12/24 10:39 06/12/24 10:39 Orders (Tests/Meds): ED MEDICATIONS Discontinued Medications Generic Name Dose Route Start Last Admin Trade Name Freq PRN Reason Stop Dose Admin Acetaminophen 1,000 mg 06/12/24 11:21 06/12/24 11:51 Acetaminophen 500mg Tab PO 06/12/24 11:22 1,000 mg ONCE ONE Administration Ketorolac Tromethamine 15 mg 06/12/24 11:21 06/12/24 11:51 Ketorolac 30mg/Ml Vial IV 06/12/24 11:22 15 mg ONCE ONE Administration Lidocaine 1 each 06/12/24 11:21 06/12/24 11:51 Lidocaine 5% Transdermal Patch TP 06/12/24 11:22 1 each ONCE ONE Administration Methocarbamol 500 mg 06/12/24 11:22 06/12/24 11:51 Methocarbamol 500mg Tablet PO 06/12/24 11:23 500 mg ONCE ONE Administration Oxycodone HCl 5 mg 06/12/24 11:21 06/12/24 11:51 Oxycodone 5mg Immediate Release Tablet PO 06/12/24 11:22 5 mg ONCE ONE Administration Promethazine HCl 25 mg 06/12/24 12:45 06/12/24 12:45 Promethazine Hcl 25mg/Ml 1ml Vial IV 06/12/24 12:46 25 mg ONCE ONE Administration Sodium Chloride 25 ml 06/12/24 12:45 06/12/24 12:45 Sodium Chloride 0.9% 25ml Bag IV 06/12/24 12:46 25 ml ONCE ONE Administration ORDERS Category Date Time Status CT cervical spine wo con Stat Cat Scan 06/12/24 11:21 Completed CBC w/Auto Diff [Complete Blood Count Auto Diff] Stat Lab 06/12/24 10:39 Completed CMP [Comprehensive Metabolic Panel] Stat Lab 06/12/24 10:39 Completed INR [Prothrombin Time INR] Stat Lab 06/12/24 10:39 Completed Medical Decision Narrative: In summary, this patient is a 53 year old female presenting to the Emergency Department for evaluation of worsening of chronic neck pain. Differential diagnoses considered include but are not limited to degenerative change, chronic pain, acute injury. Ruling out the most morbid conditions drove assessment. It should be noted patient's history includes significant chronic pain and multiple prior neck surgeries which is not at goal therapy. This complicates all aspects of care by increasing patient's risk for morbidity. I reviewed patient's past medical records and noted his evaluations in the past for similar symptoms. Also noted her pain management evaluations. On exam, the patient is sitting upright in bed in no acute distress. Neurologic exam is reassuring and at her baseline. Vitals are reassuring. Workup included CT C-spine as well as basic lab evaluation. She was given oral oxycodone, topical Lidoderm patch, oral Robaxin, oral Tylenol, and IV Toradol for pain control. Per radiologist, no significant changes on CT imaging. Her reports that he understands that we will be able to do much of anything because she is at her baseline and requires follow-up with specialist. Patient is at her baseline with improved pain after administration of medications. Given this, I feel she is appropriate for discharge home with continued outpatient follow-up with pain management and her blood bank specialist. She was given strict return precautions. I also provided prescriptions for Robaxin and Lidoderm for multimodal pain control. Critical Care Critical Care Time Critical Care Time: No
[2024-06-12] MEDS: ACETAMINOPHEN 500MG TAB 1000 MG PO (11:51)
[2024-06-12] MEDS: LIDOCAINE 5% TRANSDERMAL PATCH 1 EACH TP (11:51)
[2024-06-12] MEDS: METHOCARBAMOL 500MG TABLET 500 MG PO (11:51)
[2024-06-12] MEDS: KETOROLAC 30MG/ML VIAL 15 MG IV (11:51)
[2024-06-12] MEDS: OXYCODONE 5MG IMMEDIATE RELEASE TABLET 5 MG PO (11:51)
[2024-06-12 12:10] LABS: INR 0.97 (0.9-1.1); Prothrombin Time 10.9 seconds (10.1-12.5)
--- NOTE | 2024-06-12 12:21 | PC.NURSE ---
PT TO CT
[2024-06-12 12:37] VITALS: PULSE 52; O2SAT 96
[2024-06-12] MEDS: PROMETHAZINE HCL 25MG/ML 1ML VIAL 25 MG IV (12:45)
[2024-06-12] MEDS: SODIUM CHLORIDE 0.9% 25ML BAG 25 ML IV (12:45)
--- NOTE | 2024-06-12 12:45 | PC.NURSE ---
pt returned from CT
[2024-06-12 14:12] VITALS: BP 93/55; PULSE 59; RESP 15; TEMP 36.7; O2SAT 96
== END 2024-06-12 14:18 | disposition home or self-care (01) ==
PROVIDERS: Emergency Provider Emergency Medicine; PCP Family Medicine
DX: M54.2 Cervicalgia (principal); G89.29 Other chronic pain; I11.0 Hypertensive heart disease with heart failure; I50.30 Unspecified diastolic (congestive) heart failure; E03.9 Hypothyroidism, unspecified; E78.5 Hyperlipidemia, unspecified; J84.9 Interstitial pulmonary disease, unspecified; Z97.8 Presence of other specified devices
CPT/HCPCS: 72125; 80053; 85025; 85610; 96374; 96375; 99284; J1885; J2550

== ENCOUNTER 2024-06-19 06:43 | Emergency (ER) | payer OTHER, SELFPAY ==
[2024-06-19 07:01] VITALS: BP 135/75; PULSE 74; RESP 22; TEMP 36.4; O2SAT 92; BMI 39.5
--- NOTE | 2024-06-19 07:10 | PC.NURSE ---
DR HUTTON AT BEDSIDE
[2024-06-19] MEDS: diphenhydrAMINE 50MG/ML VIAL 25 MG IV (07:43)
[2024-06-19] MEDS: KETOROLAC 30MG/ML VIAL 15 MG IV (07:44)
--- NOTE | 2024-06-19 07:47 | HMH.EDGENADL ---
Discharge Plan Disposition Patient Disposition: Home, Self-Care Condition: Fair Prescriptions Prescriptions: New cyclobenzaprine 10 mg tablet 10 mg PO TID PRN (Reason: muscle spasm) Qty: 20 0RF prednisone 20 mg tablet 40 mg PO DAILY 5 Days Qty: 10 0RF lidocaine 5 % adhesive patch,medicated 1 patch topical DAILY Qty: 30 0RF Rx Instructions: leave on most painful area for up to 12 hrs No Action levothyroxine [Synthroid] 137 mcg tablet 137 mcg PO DAILY calcium carbonate [Calcium 500] 500 mg calcium (1,250 mg) tablet,chewable 1,000 mg PO BID fenofibrate nanocrystallized 145 mg tablet 145 mg PO DAILY clonidine HCl 0.1 mg tablet 0.1 mg PO TID PRN (Reason: hypertensive emergency) Qty: 90 3RF dexlansoprazole 60 mg capsule,biphase delayed releas 60 mg PO DAILYP PRN (Reason: stomach) Nurtec ODT 75 mg tablet,disintegrating 75 mg PO DAILY Patient Comments: DISSOLVE 1 TABLET BY MOUTH AT THE ONSET of a HEADACHE DIRECTED lorazepam 2 mg tablet 2 mg PO Q8H PRN (Reason: Anxiety) Patient Comments: TAKE 1/2 TO 1 TABLET BY MOUTH EVERY 8 HOURS NEEDED FOR ANXIETY ipratropium-albuterol 0.5 mg-3 mg(2.5 mg base)/3 mL solution for nebulization 3 ml IH QID PRN (Reason: shortness of breath or wheezing) 90 Days Qty: 270 3RF albuterol sulfate 90 mcg/actuation HFA aerosol inhaler 2 inh inhalation Q6H PRN (Reason: shortness of breath or wheezing) 90 Days Qty: 8.5 1RF bumetanide 1 mg tablet 2 mg PO DAILY Qty: 180 3RF Rx Instructions: TAKE ONE TABLET BY MOUTH DAILY NEEDED FOR EDEMA spironolactone 25 mg tablet See Rx Instructions .ROUTE .COMPLEX Qty: 180 3RF Dose Instruction: TAKE ONE TABLET BY MOUTH TWICE DAILY Rx Instructions: TAKE ONE TABLET BY MOUTH TWICE DAILY Entresto 24-26 mg tablet See Rx Instructions .ROUTE .COMPLEX Qty: 180 3RF Dose Instruction: TAKE ONE TABLET BY MOUTH TWICE DAILY Rx Instructions: TAKE ONE TABLET BY MOUTH TWICE DAILY carvedilol 12.5 mg tablet See Rx Instructions .ROUTE .COMPLEX Qty: 180 1RF Dose Instruction: TAKE ONE TABLET BY MOUTH TWICE DAILY --TAKE WITH A MEAL/FOOD-- Rx Instructions: TAKE ONE TABLET BY MOUTH TWICE DAILY --TAKE WITH A MEAL/FOOD-- Dulera 50-5 mcg/actuation HFA aerosol inhaler 2 puff inhalation Q12H Qty: 13 3RF promethazine 25 mg Tablet 25 mg PO Q6H PRN (Reason: Nausea And Vomiting) hydrocortisone 5 mg tablet 15 mg PO BID Patient Comments: TAKE TWO TABLETS BY MOUTH EVERY MORNING AND TAKE ONE TABLET in THE afternoon --TAKE WITH FOOD-- Dulera 50-5 mcg/actuation HFA aerosol inhaler 2 puff inhalation Q12H zolpidem 10 mg tablet 10 mg PO DAILY Patient Comments: TAKE 1 TABLET BY MOUTH AT NIGHT NEEDED FOR SLEEP mupirocin 2 % ointment 1 applic topical TID Qty: 22 0RF Rx Instructions: apply to wounds as directed bupivacaine (PF) 2.5 MG/ML solution 1.3 mg IT CONT Rx Instructions: medication delivered via intrathecal pain pump. actual concentration is 5mg/ml. total volume of pump is 20ml hydromorphone (PF) 1 MG/ML syringe 2.6 mg IT CONT Rx Instructions: medication delivered via intrathecal pain pump. actual concentration 10mg/ml. total volume of pump is 20ml diclofenac sodium [Pennsaid] 20 mg/gram /actuation(2 %) solution in metered-dose pump 2 pump topical BID Qty: 1 2RF Rx Instructions: APPLY 2 PUMPS (40 MG) TO THE AFFECTED AREA TWO TIMES A DAY pregabalin [Lyrica] 75 mg capsule 75 mg PO TID Qty: 42 0RF methocarbamol 1,000 mg tablet 1,000 mg PO TID PRN (Reason: .) Qty: 90 2RF methocarbamol 750 mg tablet 750 mg PO Q8H PRN (Reason: pain) Qty: 20 0RF lidocaine [Lidoderm] 5 % adhesive patch,medicated 1 patch topical DAILY Qty: 15 0RF Rx Instructions: leave on most painful area for up to 12 hrs Referrals Follow up/Referrals: Gayla Galan MD [Primary Care Provider] - See instructions Activity Restrictions/Add. Instructions Additional Instructions/Restrictions: Call your family doctor to establish care for this visit to the emergency department and schedule follow-up within 48 hours to ensure improvement. If you have any worsening of your condition or any other concerning signs or symptoms, return to the emergency department or your primary care doctor for further evaluation. Cyclobenzaprine can cause you to feel drowsy. Do not drive, operate heavy machinery, or engage in any activity that may make you tired, fall asleep, and because harm to yourself or others while taking this medication. Maintain neurosurgery follow-up. Clinical Impressions Clinical Impression: Neck pain, Nausea Instructions Patient Instructions: DI for Low Back Pain Print Language Print Language: [place] Discharge ED Provider: Juvenal Chiu General Adult HPI General Chief complaint: Back Pain/Injury Stated complaint: rash all over, muscle spasms Time Seen by Provider: 06/19/24 06:59 Mode of Arrival: Ambulatory Source of Information: Patient Limitations: No Limitations Description of Symptoms (Recalled from ER Triage Doc. by RN): Pt ambulatory to ED with cc of chronic neck and back pain that has increasingly became worse. Pt also states having extreme muscle spasms. Pt also has a rash on her face and neck. Pt's hands are red but pt states they are always red but seem to redder. Pt states using lidocaine patches and ibuprofen [employer]. History of Present Illness HPI narrative: Please note that above description of symptoms, in this electronic medical record under categorization of recalled from ER triage doctor by RN are reflective of an initial nursing assessment, however, is not reflective of my full history and physical exam that was personally taken and clarified. Consequentially, this preceding description of symptoms, which may include the patient's categorized chief complaint in the EMR, do not reflect my personal clinical impression, and the ultimate description of history of present illness and patient stated complaints should be deferred to this section of the note. Unless stated otherwise or congruent with this section of the note, additional signs, symptoms, or incongruence should be interpreted as inaccurate with my clinical impression. Related Data Home Medications ?Medication ?Instructions ?Recorded ?Confirmed levothyroxine 137 mcg tablet 137 mcg PO DAILY hypothyroidism 04/12/18 05/23/24 (Synthroid) dexlansoprazole 60 mg 60 mg PO DAILYP PRN stomach 01/23/21 05/23/24 capsule,biphase delayed release bupivacaine (PF) 0.25 % (2.5 1.3 mg intrathecal CONT chronic 02/24/21 05/23/24 mg/mL) injection solution pain hydromorphone (PF) 1 mg/mL 2.6 mg intrathecal CONT chronic 02/24/21 05/23/24 injection syringe pain rimegepant 75 mg disintegrating 75 mg PO DAILY migraines 10/06/21 05/23/24 tablet (Nurtec ODT) calcium carbonate (Calcium 500) 1,000 mg PO BID Supplement 12/24/21 05/23/24 lorazepam 2 mg tablet 2 mg PO Q8H PRN Anxiety 06/11/22 05/23/24 fenofibrate nanocrystallized 145 145 mg PO DAILY Cholesterol 06/19/22 05/23/24 mg tablet promethazine 25 mg tablet 25 mg PO Q6H PRN Nausea And 11/06/22 05/23/24 Vomiting mometasone-formoterol HFA 50 mcg-5 2 puff inhalation Q12H . 04/20/23 05/23/24 mcg/actuation aerosol inhaler (Dulera) zolpidem 10 mg tablet 10 mg PO DAILY 03/28/24 05/23/24 hydrocortisone 5 mg tablet 15 mg PO BID . 05/04/24 05/23/24 Previous Rx's ?Medication ?Instructions ?Recorded albuterol sulfate 90 mcg/actuation 2 inh inhalation Q6H PRN shortness 04/05/23 aerosol inhaler of breath or wheezing 90 days #8.5 grams ipratropium 0.5 mg-albuterol 3 mg 3 ml inhalation QID PRN shortness 04/05/23 (2.5 mg base)/3 mL nebulization of breath or wheezing 90 days #270 soln mL bumetanide 1 mg tablet 2 mg (2 x 1 mg) PO DAILY Fluid 04/16/23 #180 tabs sacubitril 24 mg-valsartan 26 mg See Rx Instructions .Route 09/27/23 tablet (Entresto) .COMPLEX #180 tabs spironolactone 25 mg tablet See Rx Instructions .Route 09/27/23 .COMPLEX #180 tabs diclofenac sodium 20 2 pump topical BID #1 ea 12/30/23 mg/gram/actuation (2 %) topical soln metered-dose pump (Pennsaid) mupirocin 2 % topical ointment 1 applic topical TID #22 grams 03/28/24 carvedilol 12.5 mg tablet See Rx Instructions .Route 05/04/24 .COMPLEX #180 tabs clonidine HCl 0.1 mg tablet 0.1 mg PO TID PRN hypertensive 05/04/24 emergency #90 tabs methocarbamol 1,000 mg tablet 1,000 mg PO TID PRN . #90 tabs 05/29/24 pregabalin 75 mg capsule (Lyrica) 75 mg PO TID #42 caps 05/29/24 mometasone-formoterol HFA 50 mcg-5 2 puff inhalation Q12H #13 grams 06/07/24 mcg/actuation aerosol inhaler (Dulera) lidocaine 5 % topical patch 1 patch topical DAILY #15 ea 06/12/24 (Lidoderm) methocarbamol 750 mg tablet 750 mg PO Q8H PRN pain #20 tabs 06/12/24 cyclobenzaprine 10 mg tablet 10 mg PO TID PRN muscle spasm #20 06/19/24 tabs lidocaine 5 % topical patch 1 patch topical DAILY #30 ea 06/19/24 prednisone 20 mg tablet 40 mg (2 x 20 mg) PO DAILY 5 days 06/19/24 #10 tabs Allergies Allergy/AdvReac Type Severity Reaction Status Date / Time niacin [NIACIN] Allergy Severe S-DIFF. Verified 05/23/24 13:28 BREATHING Penicillins [PENICILLINS] Allergy Intermediate I-HIVES Verified 05/23/24 13:28 ondansetron Allergy Mild ABD PAIN Verified 05/23/24 13:28 [From ZOFRAN ( HYDROCHLORIDE)] clindamycin Allergy Verified 05/23/24 13:28 metoclopramide [From Reglan] Allergy NAUSEA / Verified 05/23/24 13:28 VOMITING sulfamethoxazole Allergy Verified 05/23/24 13:28 [From Bactrim] trimethoprim [From Bactrim] Allergy Verified 05/23/24 13:28 vancomycin Allergy Redness of Verified 05/23/24 13:28 Skin prochlorperazine AdvReac Severe Verified 05/23/24 13:28 [From Compazine] [facility] Disclaimer: The information contained in this section may have been updated after the patient was seen, as this information can be updated by other users. Medical History Dark urine Diastolic congestive heart failure Chest pain Nocturnal hypoxia History of 2019 novel coronavirus disease (COVID-19) Pulmonary fibrosis, unspecified Asthma Abdominal bloating Hypothyroid Pelvic pressure in female Implantable intrathecal infusion pump present Gastroparesis Follow-up exam Thickened endometrium Morbid obesity due to excess calories ILD (interstitial lung disease) Nocturnal hypoxemia History of 2019 novel coronavirus disease (COVID-19) Abnormal computerized axial tomography of chest History of environmental allergies Family history of asthma Dyspnea on exertion Moderate persistent asthma Family history of atrial fibrillation Palpitations HTN (hypertension) HLD (hyperlipidemia) Daytime somnolence Edema Surgical History History of foot surgery History of surgery Hx of fusion of cervical spine History of cervical discectomy H/O brain surgery H/O myomectomy Status post lumbar spine surgery for decompression of spinal cord History of tubal ligation History of esophagogastroduodenoscopy (EGD) History of section History of colonoscopy Hx of cholecystectomy History of cardiac cath Family History Grandmother COPD (chronic obstructive pulmonary disease) Asthma Mother COPD (chronic obstructive pulmonary disease) Asthma Grandfather Lung cancer Other Family history of breast cancer Social History Smoking Status: Never smoker second hand exposure: No alcohol intake: never substance use type: denies use current occupational status: unemployed Travel in the last 8 weeks: None household members: other housing: house lives independently: Yes marital status: single current occupational exposures/hazards: No caffeine: Yes special bridgette needs: No agree to transfusion: No do you feel safe at home: Yes victim of physical abuse: No victim of emotional abuse: No victim of sexual abuse: No would you like helpful sources: No ROS Obtained: Yes All systems reviewed & no additional complaints except as documented Physical Exam General General appearance: alert Head Head exam: atraumatic and normocephalic Eye Eye exam: Present normal appearance, PERRL and EOMI Neck Neck exam: Present normal inspection, full ROM and trachea midline Respiratory Respiratory exam: Absent respiratory distress, wheezes, stridor, accessory muscle use or prolonged expiratory phase Cardiovascular Cardiovascular exam: Present other (Pulses equal symmetric in upper and lower extremities) Abdominal Exam Abdominal exam: Present soft; Absent distention, tenderness or pulsatile mass Extremities Exam Extremities exam: Absent edema Neurological Exam Neurological exam: Present alert, oriented X3 and CN II-XII intact; Absent motor sensory deficit Skin Skin exam: Present warm and dry; Absent diaphoresis or erythema Medical Decision Making Medical Records Medical records reviewed: Yes I reviewed the patient's medical records. George Inquiry Pt receiving controlled substance: No George was queried for this patient: No Vital Signs: 06/19/24 07:01 06/19/24 08:12 06/19/24 08:30 Temperature 97.6 F Temperature Source Oral Pulse Rate 61 60 Pulse Rate [Left Radial] 74 Respiratory Rate 22 Blood Pressure 128/66 129/81 Blood Pressure [Right Arm] 135/75 Blood Pressure Mean Blood Pressure Mean [Right Arm] 95 Blood Pressure Source [Right Arm] Automatic Cuff Blood Pressure Position [Right Arm] Sitting 02 Sat by Pulse Oximetry 92 L 93 L 92 L Oxygen Delivery Method Room Air Room Air Room Air 06/19/24 09:00 06/19/24 09:24 Temperature 98.0 F Temperature Source Pulse Rate 65 60 Pulse Rate [Left Radial] Respiratory Rate 16 Blood Pressure 127/65 129/81 Blood Pressure [Right Arm] Blood Pressure Mean 85 Blood Pressure Mean [Right Arm] Blood Pressure Source [Right Arm] Blood Pressure Position [Right Arm] 02 Sat by Pulse Oximetry 96 Oxygen Delivery Method Room Air Lab Data Lab Results 06/19/24 07:44: WBC 5.8, RBC 4.22, Hgb 12.4, Hct 39.2, MCV 93.0, MCH 29.4, MCHC 31.6 L, RDW 16.0, Plt Count 164, MPV 10.5 H, Neut % (Auto) 57.5, Lymph % (Auto) 30.9, Charlton % (Auto) 7.5, Eos % (Auto) 2.6, Baso % (Auto) 1.5, Neut # (Auto) 3.3, Lymph # (Auto) 1.8, Charlton # (Auto) 0.4, Eos # (Auto) 0.2, Baso # (Auto) 0.1, ESR 29, Sodium 141, Potassium 3.6, Chloride 105, Carbon Dioxide 29, Anion Gap 10.6, BUN 31 H, Creatinine 0.60, Estimated Creat Clear 186, Estimated GFR 104, Est GFR ( Amer) 126, Glucose 115 H, Calcium 9.9, Total Bilirubin 0.4, AST 45 H, ALT 39, Alkaline Phosphatase 56, C-Reactive Protein 3.3, Total Protein 7.7, Albumin 4.4, Globulin 3.3 H, Albumin/Globulin Ratio 1.3 06/19/24 07:44 06/19/24 07:44 Orders (Tests/Meds): ED MEDICATIONS Discontinued Medications Generic Name Dose Route Start Last Admin Trade Name Jonna PRN Reason Stop Dose Admin Diphenhydramine HCl 25 mg 06/19/24 07:20 06/19/24 07:43 Diphenhydramine 50mg/Ml Vial IV 06/19/24 07:21 25 mg ONCE ONE Administration Ketorolac Tromethamine 15 mg 06/19/24 07:20 06/19/24 07:44 Ketorolac 30mg/Ml Vial IV 06/19/24 07:21 15 mg ONCE ONE Administration Ondansetron HCl 4 mg 06/19/24 07:50 06/19/24 08:16 Ondansetron 4mg/2ml Vial IV 06/19/24 07:51 Not Given ONCE ONE Promethazine HCl 12.5 mg 06/19/24 08:12 06/19/24 08:33 Promethazine Hcl 25mg/Ml 1ml Vial IV 06/19/24 08:13 12.5 mg ONCE ONE Administration Sodium Chloride 25 ml 06/19/24 08:12 06/19/24 08:32 Sodium Chloride 0.9% 25ml Bag IV 06/19/24 08:13 25 ml ONCE ONE Administration ORDERS Category Date Time Status CBC w/Auto Diff [Complete Blood Count Auto Diff] Stat Lab 06/19/24 07:44 Completed CMP [Comprehensive Metabolic Panel] Stat Lab 06/19/24 07:44 Completed CRP [C-Reactive Protein] Stat Lab 06/19/24 07:44 Completed ESR [Erythrocyte Sedimentation Rate] Stat Lab 06/19/24 07:44 Completed Medical Decision Narrative: 53-year-old female history of chronic neck and back pain secondary to spinal degeneration, alerted impending internal decapitation, with bilateral upper and lower extremity neuropathies and weakness, spina bifida, chronic pain presenting with rash and chronic pain. Patient states that she was seen in the urgent care couple days ago for pain, was given a muscle relaxer and that is the only thing that has helped. States that she is having chronic pain, no acute pain, bilateral upper extremities, lower extremities, neck, back. She also is having a new rash on her neck. Denies fevers or chills, cough, difficulty swallowing, difficulty speaking, changes in voice, changes in range of motion of neck, vomiting, tongue swelling, chest pain, shortness of breath, cough, or any other concerns. States she has not taken anything for the rash, no new detergents, clothing, soaps, or other contact abnormalities she is aware of. No new foods etc. Patient asking for pain medications. Notably, patient has no acute pain, just chronic and fatigue from pain. History was obtained via conversation with patient. On arrival, patient hemodynamically stable, alert, oriented x4, appropriate, GCS 15, moving all extremities spontaneously, pupils equal and reactive to light. Full physical exam performed and significant for very well-appearing woman who is in no acute distress. Cardiopulmonary exam within normal limits with normal heart and lung sounds. No lower extremity edema. Good capillary refill in extremities. Patient intermittently opening and closing hands and rubbing hands together. She does have contact dermatitis on the front of her neck which is blanching, not indurated, nontender, not excoriated. Intraoral exam normal. Range of motion of the head normal for her, per her report. Differential includes progression of disease, neuropathy, radiculopathy, disc herniation, contact dermatitis, among others. Patient placed on continuous cardiac monitoring and continuous pulse ox with initial blood pressure 135/75, heart rate 74, saturation 92% without good pleth, 96% with good waveform. Patient was given Toradol, acetaminophen, Robaxin for symptomatic management and correction of underlying abnormalities. Workup independently interpreted and significant for nonactionable CBC or chemistry, normal ESR and CRP. CT of the neck was considered, but not deemed necessary. Patient not having new neurologic deficits, no compressive symptoms, no new traumas, and no acute symptoms. Prolonged conversation had with patient. It was recommended that she follow-up with spine surgery outpatient. It sounds like patient has been evaluated at numerous sites including leaving clinic, here at [facility], options are limited secondary to her disease progression. She states she has a follow-up with neurosurgery at [facility] at the end of June, it was recommended that she keep this appointment and keep her hopes up. Patient voiced understanding and was appreciative, but it was explained that a little we can do from an emergency standpoint given she is already following with pain management. She voiced her understanding of this as well. Because patient at baseline without signs or symptoms of clinical decompensation, deemed appropriate for discharge. Results were relayed to patient who voiced understanding and were agreeable to outpatient management and follow up. I discussed my clinical impression with patient and answered all questions. At this time, the evidence for any other entities in the differential is insufficient to warrant any further testing or ED observation. This was explained as well. Advisory was given that persistent or worsening symptoms require further evaluation. I confirmed the understanding of this discussion. [employer] disclaimer Much of this encounter note is an electronic manager restaurant spoken language to printed text. Electronic manager restaurant of the spoken language may permit errors. Although I have reviewed the note, some errors may still exist. Critical Care Critical Care Time Critical Care Time: No
[2024-06-19 08:00] LABS: Alanine Aminotransferase 39 U/L (12-78); Albumin Level 4.4 g/dl (3.5-5.0); Albumin/Globulin Ratio 1.3 (1.1-1.8); Alkaline Phosphatase 56 U/L (38-126); Anion Gap 10.6 mEq/L (5-15); Aspartate Amino Transferase 45 U/L (14-36); Bilirubin,Total 0.4 mg/dl (0.2-1.3); Blood Urea Nitrogen 31 mg/dl (7-17); Calcium 9.9 mg/dl (8.4-10.2); Carbon Dioxide 29 mmol/L (22.0-30.0); Chloride 105 mmol/L (98-107); Creatinine Clearance Estimated 186 mL/min (50-200); Estimated Glomerular Filt Rate 104 ml/min (>60); GFR (African American) 126 ML/MIN (>60); Globulin 3.3 g/dL (1.3-3.2); Glucose 115 mg/dl (74-100); Potassium 3.6 mmoL/L (3.5-5.1); Sodium 141 mmol/L (136-145); Total Protein,Serum 7.7 g/dl (6.3-8.2)
[2024-06-19 08:01] LABS: Basophils # 0.1 K/mm3 (0-0.2); Basophils % 1.5 % (0.1-2.0); Eosinophils # 0.2 K/mm3 (0.0-0.4); Eosinophils % 2.6 % (0.1-12.0); Hematocrit 39.2 % (37.0-47.0); Hemoglobin 12.4 g/dL (12.2-16.2); Lymphocytes # 1.8 K/mm3 (0.7-4.5); Lymphocytes % 30.9 % (10-50); Mean Corpuscular HGB Conc 31.6 g/dL (31.8-35.4); Mean Corpuscular Hemoglobin 29.4 pg (27.0-31.2); Mean Platelet Volume 10.5 fl (7.4-10.4); Monocytes # 0.4 K/mm3 (0.1-1.0); Monocytes % 7.5 % (1.7-9.3); Neutrophils # 3.3 K/mm3 (1.8-7.8); Neutrophils % 57.5 % (37.0-80.0); Platelet Count 164 K/mm3 (142-424); Red Blood Count 4.22 M/mm3 (4.20-5.40); White Blood Count 5.8 K/mm3 (4.8-10.8)
[2024-06-19 08:05] LABS: C-Reactive Protein 3.3 mg/L (0-4)
[2024-06-19 08:12] VITALS: BP 128/66; PULSE 61; O2SAT 93
[2024-06-19 08:26] LABS: Erythrocyte Sedimentation Rate 29 mm/hr (0-30)
[2024-06-19 08:30] VITALS: BP 129/81; PULSE 60; O2SAT 92
[2024-06-19] MEDS: SODIUM CHLORIDE 0.9% 25ML BAG 25 ML IV (08:32)
[2024-06-19] MEDS: PROMETHAZINE HCL 25MG/ML 1ML VIAL 12.5 MG IV (08:33)
[2024-06-19 09:00] VITALS: BP 127/65; PULSE 65; O2SAT 96
[2024-06-19 09:24] VITALS: BP 129/81; PULSE 60; RESP 16; TEMP 36.7; O2SAT 96
== END 2024-06-19 09:24 | disposition home or self-care (01) ==
PROVIDERS: Emergency Provider Emergency Medicine; PCP Family Medicine
DX: M54.2 Cervicalgia (principal); R11.0 Nausea
CPT/HCPCS: 80053; 85025; 85651; 86140; 96374; 96375; 99284; J1200; J1885; J2550

== ENCOUNTER 2024-06-20 16:07 | Emergency (ER) | payer OTHER, SELFPAY ==
[2024-06-20 17:00] VITALS: BP 121/68; PULSE 72; RESP 19; TEMP 36.5; O2SAT 97; BMI 40.3
--- NOTE | 2024-06-20 17:38 | EXP.UTC ---
Discharge Plan Disposition Patient Disposition: Home, Self-Care Condition: Good Prescriptions Prescriptions: No Action hydrocortisone 5 mg tablet 5 mg PO DAILY Patient Comments: TAKE TWO TABLETS BY MOUTH EVERY DAY IN THE MORNING and TAKE ONE TABLET BY MOUTH EVERY DAY in THE afternoon methocarbamol 500 mg tablet 500 mg PO TIDP PRN (Reason: Pain) Patient Comments: TAKE TWO TABLETS BY MOUTH THREE TIMES DAILY NEEDED levothyroxine [Synthroid] 137 mcg tablet 137 mcg PO DAILY Patient Comments: TAKE ONE TABLET BY MOUTH EVERY DAY, WEDNESDAY THROUGH WEDNESDAY clonidine HCl 0.1 mg tablet 0.1 mg PO DAILY Patient Comments: TAKE ONE TABLET BY MOUTH THREE TIMES DAILY NEEDED FOR hypertensive emergency mycophenolate mofetil 500 mg tablet 500 mg PO BID Patient Comments: TAKE ONE TABLET BY MOUTH TWICE DAILY lidocaine 5 % adhesive patch,medicated 1 patch topical ONCE Patient Comments: APPLY 1 PATCH TOPICALLY TO THE AFFECTED AREA ONCE DAILY AND LEAVE IN PLACE FOR 12 HOURS, THEN REMOVE AND LEAVE OFF FOR 12 HOURS clobetasol 0.05 % ointment 1 applic TOPICAL BID Patient Comments: APPLY TOPICALLY TO THE AFFECTED AREA(S) ON LEG AND ANKLE TWICE DAILY AVOID USING ON FACE, ARMPITS, AND GROIN. USE FOR 3 WEEKS, TAKE 1 WEEK BREAK. REPEAT NEEDED dexlansoprazole 60 mg capsule,biphase delayed releas 60 mg PO DAILY Patient Comments: TAKE ONE CAPSULE BY MOUTH EVERY DAY Dulera 50-5 mcg/actuation HFA aerosol inhaler 2 puff INHALATION BID Patient Comments: INHALE TWO PUFFS BY MOUTH EVERY TWELVE HOURS Referrals Follow up/Referrals: Gayla Galan MD [Primary Care Provider] - See instructions Activity Restrictions/Add. Instructions Additional Instructions/Restrictions: Use topical medication Clobetasol as prescribed by Dermatology Try medication you was prescribed and follow up with your Family Doctor or pain management if it doesnt help Return if needed Straight to ER if any life threatening symptoms Clinical Impressions Clinical Impression: Chronic neck pain Instructions Patient Instructions: DI for Chronic Pain -- Adult Print Language Print Language: Georgian Discharge ED Provider: Keila Mcintyer [facility] General Stated complaint: Rash on neck,back pain Mode of Arrival: Ambulatory Source of Information: Patient Limitations: No Limitations Time Seen by Provider: 06/20/24 17:38 Description of Symptoms (Recalled from Triage Doc. by RN): PATIENT C/O CHRONIC NECK AND BACK PAIN, REQUESTING MUSCLE RELAXERS. PATIENT ALSO C/O RASH TO NECK HEENT Symptoms (Recalled from RN notes): No Resp Symptoms (Recalled from RN notes): No Skin Symptoms (Recalled from RN notes): Yes MS Symptoms (Recalled from RN notes): Yes Functional Status (Recalled from RN notes): WNL History of Present Illness Provider Complaint: Patient states that she has chronic neck pain and has been seen several times over the last week in the ED and was given Methocarbamol and Cyclobenzaprine but they dont help her much States that she hasnt tried the Cyclobenzaprine because she was sure they wouldnt help States that she came in wanting to get another muscle relaxer and something for the rash on her neck Related Data Home Medications ?Medication ?Instructions ?Recorded ?Confirmed clobetasol 0.05 % topical ointment 1 applic topical BID 06/20/24 06/20/24 clonidine HCl 0.1 mg tablet 0.1 mg PO DAILY 06/20/24 06/20/24 dexlansoprazole 60 mg 60 mg PO DAILY 06/20/24 06/20/24 capsule,biphase delayed release hydrocortisone 5 mg tablet 5 mg PO DAILY 06/20/24 06/20/24 levothyroxine 137 mcg tablet 137 mcg PO DAILY 06/20/24 06/20/24 (Synthroid) lidocaine 5 % topical patch 1 patch topical ONCE 06/20/24 06/20/24 methocarbamol 500 mg tablet 500 mg PO TIDP PRN Pain 06/20/24 06/20/24 mometasone-formoterol HFA 50 mcg-5 2 puff inhalation BID 06/20/24 06/20/24 mcg/actuation aerosol inhaler (Dulera) mycophenolate mofetil 500 mg tablet 500 mg PO BID 06/20/24 06/20/24 Allergies Allergy/AdvReac Type Severity Reaction Status Date / Time niacin [NIACIN] Allergy Severe S-DIFF. Verified 05/23/24 13:28 BREATHING Penicillins [PENICILLINS] Allergy Intermediate I-HIVES Verified 05/23/24 13:28 ondansetron Allergy Mild ABD PAIN Verified 05/23/24 13:28 [From ZOFRAN ( HYDROCHLORIDE)] clindamycin Allergy Verified 05/23/24 13:28 metoclopramide [From Reglan] Allergy NAUSEA / Verified 05/23/24 13:28 VOMITING sulfamethoxazole Allergy Verified 05/23/24 13:28 [From Bactrim] trimethoprim [From Bactrim] Allergy Verified 05/23/24 13:28 vancomycin Allergy Redness of Verified 05/23/24 13:28 Skin prochlorperazine AdvReac Severe Verified 05/23/24 13:28 [From Compazine] Worker's Comp Is this a Worker's Comp case?: No [facility] Disclaimer: The information contained in this section may have been updated after the patient was seen, as this information can be updated by other users. Medical History Dark urine Diastolic congestive heart failure Chest pain Nocturnal hypoxia History of 2019 novel coronavirus disease (COVID-19) Pulmonary fibrosis, unspecified Asthma Abdominal bloating Hypothyroid Pelvic pressure in female Implantable intrathecal infusion pump present Gastroparesis Follow-up exam Thickened endometrium Morbid obesity due to excess calories ILD (interstitial lung disease) Nocturnal hypoxemia History of 2019 novel coronavirus disease (COVID-19) Abnormal computerized axial tomography of chest History of environmental allergies Family history of asthma Dyspnea on exertion Moderate persistent asthma Family history of atrial fibrillation Palpitations HTN (hypertension) HLD (hyperlipidemia) Daytime somnolence Edema Surgical History History of foot surgery History of surgery Hx of fusion of cervical spine History of cervical discectomy H/O brain surgery H/O myomectomy Status post lumbar spine surgery for decompression of spinal cord History of tubal ligation History of esophagogastroduodenoscopy (EGD) History of section History of colonoscopy Hx of cholecystectomy History of cardiac cath Family History Grandmother COPD (chronic obstructive pulmonary disease) Asthma Mother COPD (chronic obstructive pulmonary disease) Asthma Grandfather Lung cancer Other Family history of breast cancer Social History Smoking Status: Never smoker second hand exposure: No alcohol intake: never substance use type: denies use current occupational status: unemployed Travel in the last 8 weeks: None household members: other housing: house lives independently: Yes marital status: single current occupational exposures/hazards: No caffeine: Yes special bridgette needs: No agree to transfusion: No do you feel safe at home: Yes victim of physical abuse: No victim of emotional abuse: No victim of sexual abuse: No would you like helpful sources: No ROS Obtained: Yes All systems reviewed & no additional complaints except as documented and Yes Systems reviewed as appropriate & no additional complaints except as documented Constitutional Constitutional: Reports system reviewed and no additional complaints, except as documented and Reports as per HPI ENT Ears, Nose, Mouth, and Throat: Reports system reviewed and no additional complaints, except as documented and Reports as per HPI Cardiovascular Cardiovascular: Reports system reviewed and no additional complaints, except as documented and Reports as per HPI Respiratory Respiratory: Reports system reviewed and no additional complaints, except as documented and Reports as per HPI Gastrointestinal Gastrointestingal: Reports system reviewed and no additional complaints, except as documented and as per HPI Musculoskeletal Musculoskeletal: Reports system reviewed and no additional complaints, except as documented, Reports as per HPI and Reports other Comments: chronic neck pain and spasms Integumentary/Breasts Skin/Breast: Reports rash Physical Exam General General appearance: alert and in no apparent distress ENT ENT exam: Present mucous membranes moist Chest Chest inspection: Present normal inspection and symmetric chest wall rise Respiratory Respiratory exam: Present normal lung sounds bilaterally; Absent respiratory distress or wheezes Cardiovascular Cardiovascular exam: Present regular rate and normal heart sounds Neurological Exam Neurological exam: Present alert and oriented X3 Skin Skin exam: Present rash (small area of mild red fine rash noted on chest area and neck) Medical Decision Making George Inquiry Pt receiving controlled substance: No George was queried for this patient: No Vital Signs: 06/20/24 17:00 Temperature 97.7 F Temperature Source Oral Pulse Rate [Left Brachial] 72 Respiratory Rate 19 Blood Pressure [Left Arm] 121/68 Blood Pressure Mean [Left Arm] 85 Blood Pressure Source [Left Arm] Automatic Cuff Blood Pressure Position [Left Arm] Sitting 02 Sat by Pulse Oximetry 97 Oxygen Delivery Method Room Air Medical Decision Narrative: Patient educated that she needed to get the prescribed muscle relaxers that she was prescribed yesterday in the ED and try them to see if they will work for her and if they do not then follow up with pain management, family doctor and spinal specialist that she has been seeing patient verbalized understanding
[2024-06-20 18:10] VITALS: BP 121/68; PULSE 72; RESP 19; TEMP 36.5; O2SAT 97
== END 2024-06-20 18:12 | disposition home or self-care (01) ==
PROVIDERS: Emergency Provider Nurse Practitioner; PCP Family Medicine
DX: M54.2 Cervicalgia (principal); G89.29 Other chronic pain
CPT/HCPCS: 99212; 99213; G0463

== ENCOUNTER 2024-06-23 13:19 | Outpatient (POV) | payer OTHER, SELFPAY ==
[2024-06-23 13:41] VITALS: BP 123/70; PULSE 67; RESP 18; TEMP 36.5; O2SAT 92; BMI 40.1
--- NOTE | 2024-06-23 14:06 | XR_ITS ---
FINAL REPORT CLINICAL HISTORY: Right hand pain COMPARISON: None FINDINGS: Three views of the right hand were obtained. There is no acute fracture or dislocation. The joint spaces are well preserved. There is no acute soft tissue abnormality. IMPRESSION: No acute abnormality identified. Reviewed, Interpreted and Dictated by Edgardo Schulte MD Transcribed by Lisa Roger Authenticated and . [facility]
--- NOTE | 2024-06-23 14:06 | XR_ITS ---
FINAL REPORT CLINICAL HISTORY: Right wrist pain COMPARISON: None FINDINGS: Three views of the right wrist were obtained. There is no acute fracture or dislocation. The joint spaces are well preserved. There is no acute soft tissue abnormality. IMPRESSION: No acute abnormality identified. Reviewed, Interpreted and Dictated by Edgardo Schulte MD Transcribed by Lisa Roger Authenticated and [facility]
--- NOTE | 2024-06-23 14:06 | XR_ITS ---
FINAL REPORT CLINICAL HISTORY: Left wrist pain COMPARISON: None FINDINGS: Three views of the left wrist were obtained. There is no acute fracture or dislocation. The joint spaces are well preserved. There is no acute soft tissue abnormality. IMPRESSION: No acute abnormality identified. Reviewed, Interpreted and Dictated by Edgardo Schulte MD Transcribed by Lisa Roger Authenticated and [facility]
--- NOTE | 2024-06-23 14:06 | XR_ITS ---
FINAL REPORT CLINICAL HISTORY: Left hand pain COMPARISON: None FINDINGS: Three views of the left hand were obtained. There is no acute fracture or dislocation. The joint spaces are well preserved. There is no acute soft tissue abnormality. IMPRESSION: No acute abnormality identified. Reviewed, Interpreted and Dictated by Edgardo Schulte MD Transcribed by Lisa Roger Authenticated and . [facility]
--- NOTE | 2024-06-23 14:07 | XR_ITS ---
FINAL REPORT TECHNIQUE: Chest PA & Lateral CLINICAL HISTORY: FIBROSIS IN SCLERODERMA COMPARISON: None FINDINGS: 2 views of the chest were performed. The heart size is at the upper limits of normal. The mediastinum is within normal limits. There is no acute cardiopulmonary process. There are mild chronic changes at the lung bases. There are no pleural effusions. There is no pneumothorax. Cervical fusion hardware is noted in the lower cervical spine. IMPRESSION: No acute cardiopulmonary process. Reviewed, Interpreted and Dictated by Edgardo Schulte MD Transcribed by Lisa Roger Authenticated and [facility]
--- NOTE | 2024-06-23 14:09 | XR_ITS ---
FINAL REPORT CLINICAL HISTORY: INFLAMMATION COMPARISON: None FINDINGS: LEFT HIP: Two views of the left hip with an AP view of the pelvis demonstrate no acute fracture or dislocation. There is mild hip joint space narrowing. There are mild hypertrophic changes of the acetabular margin. The visualized bony structures are well aligned. No soft tissue abnormality is seen. IMPRESSION: Mild hypertrophic changes without acute bony abnormality. Reviewed, Interpreted and Dictated by Edgardo Schulte MD Transcribed by Lisa Roger Authenticated and [facility]
--- NOTE | 2024-06-23 14:09 | XR_ITS ---
FINAL REPORT CLINICAL HISTORY: inflamation COMPARISON: None FINDINGS: RIGHT HIP Two views of the right hip demonstrate no acute fracture or dislocation. There is mild hip joint space narrowing. The femoral head has a normal smooth contour. There are hypertrophic changes of the acetabular margin. No soft tissue abnormality is seen. Bilateral tubal clips are present. IMPRESSION: Mild degenerative changes without acute bony abnormality. Reviewed, Interpreted and Dictated by Edgardo Schulte MD Transcribed by Lisa Roger Authenticated and [facility]
[2024-06-23 14:55] LABS: Basophils % 0.3 % (0.1-2.0); Eosinophils % 0.8 % (0.1-12.0); Hematocrit 38.5 % (37.0-47.0); Hemoglobin 12.3 g/dL (12.2-16.2); Lymphocytes # 1.2 K/mm3 (0.7-4.5); Lymphocytes % 22.1 % (10-50); Mean Corpuscular HGB Conc 31.9 g/dL (31.8-35.4); Mean Corpuscular Hemoglobin 30.4 pg (27.0-31.2); Mean Corpuscular Volume 95.1 fl (81-99); Mean Platelet Volume 11.1 fl (7.4-10.4); Monocytes # 0.2 K/mm3 (0.1-1.0); Monocytes % 4.6 % (1.7-9.3); Neutrophils # 3.7 K/mm3 (1.8-7.8); Neutrophils % 72.1 % (37.0-80.0); Platelet Count 152 K/mm3 (142-424); Red Blood Count 4.05 M/mm3 (4.20-5.40); Red Cell Distribution Width 15.9 % (11.5-17.5); White Blood Count 5.2 K/mm3 (4.8-10.8)
[2024-06-23 15:13] LABS: Albumin Level 4.5 g/dl (3.5-5.0); Chloride 105 mmol/L (98-107); Potassium 4.5 mmoL/L (3.5-5.1); Sodium 141 mmol/L (136-145)
[2024-06-23 15:15] LABS: Blood Urea Nitrogen 25 mg/dl (7-17); Creatinine Clearance Estimated 162 mL/min (50-200); Estimated Glomerular Filt Rate 87 ml/min (>60); GFR (African American) 105 ML/MIN (>60)
[2024-06-23 15:16] LABS: Alanine Aminotransferase 33 U/L (12-78); Alkaline Phosphatase 60 U/L (38-126); Anion Gap 8.5 mEq/L (5-15); Aspartate Amino Transferase 41 U/L (14-36); Bilirubin,Indirect 0.4 mg/dL (0.0-0.9); Bilirubin,Total 0.4 mg/dl (0.2-1.3); Bilirubin,Unconjugated 0.5 mg/dL (0.0-1.1); Calcium 9.5 mg/dl (8.4-10.2); Carbon Dioxide 32 mmol/L (22.0-30.0); Glucose 112 mg/dl (74-100); Total Protein,Serum 7.3 g/dl (6.3-8.2)
--- NOTE | 2024-06-23 15:35 | EXP.PAIN.SOA ---
[facility] Disclaimer: The information contained in this section may have been updated after the patient was seen, as this information can be updated by other users. Medical History Dark urine Diastolic congestive heart failure Chest pain Nocturnal hypoxia History of 2019 novel coronavirus disease (COVID-19) Pulmonary fibrosis, unspecified Asthma Abdominal bloating Hypothyroid Pelvic pressure in female Implantable intrathecal infusion pump present Gastroparesis Follow-up exam Thickened endometrium Morbid obesity due to excess calories ILD (interstitial lung disease) Nocturnal hypoxemia History of 2019 novel coronavirus disease (COVID-19) Abnormal computerized axial tomography of chest History of environmental allergies Family history of asthma Dyspnea on exertion Moderate persistent asthma Family history of atrial fibrillation Palpitations HTN (hypertension) HLD (hyperlipidemia) Daytime somnolence Edema Surgical History History of foot surgery History of surgery Hx of fusion of cervical spine History of cervical discectomy H/O brain surgery H/O myomectomy Status post lumbar spine surgery for decompression of spinal cord History of tubal ligation History of esophagogastroduodenoscopy (EGD) History of section History of colonoscopy Hx of cholecystectomy History of cardiac cath Family History Grandmother COPD (chronic obstructive pulmonary disease) Asthma Mother COPD (chronic obstructive pulmonary disease) Asthma Grandfather Lung cancer Other Family history of breast cancer Social History Smoking Status: Never smoker second hand exposure: No alcohol intake: never substance use type: denies use current occupational status: other Travel in the last 8 weeks: None household members: other housing: house lives independently: Yes marital status: single current occupational exposures/hazards: No caffeine: Yes special bridgette needs: No agree to transfusion: No do you feel safe at home: Yes victim of physical abuse: No victim of emotional abuse: No victim of sexual abuse: No would you like helpful sources: No PM Subjective & Objective Subjective Subjective:: This patient has an intrathecal pain pump however has severe degenerative changes with spondylosis of the cervical spine. She was also having some increasing pain in the lumbar spine. She wanted talk about spinal cord stimulation. I do not believe she is a candidate for spinal cord stimulation given her pathology. She has seen a neurosurgeon. She is not an operative candidate. Pain at rest (0-10 scale): 10 Objective Objective:: Alert and oriented x 3 no acute distress. She does have antalgic gait. Motor strength of the upper extremities is 4 out of 5. There is no gross sensory deficit. Has patient had previous pain injection?: Yes Percent improvement in pain since last injection: 20 Conservative treatment options previously tried: NSAIDS Length of treatment: 3 mo, Home exercise plan Length of treatment: 3 mo and Physical Therapy Length of treatment: 3mo Meds Home Medications and Allergies Home Medications ?Medication ?Instructions ?Recorded ?Confirmed ?Type clobetasol 0.05 % topical ointment 1 applic topical BID 06/20/24 06/20/24 History clonidine HCl 0.1 mg tablet 0.1 mg PO DAILY 06/20/24 06/20/24 History dexlansoprazole 60 mg 60 mg PO DAILY 06/20/24 06/20/24 History capsule,biphase delayed release hydrocortisone 5 mg tablet 5 mg PO DAILY 06/20/24 06/20/24 History levothyroxine 137 mcg tablet 137 mcg PO DAILY 06/20/24 06/20/24 History (Synthroid) lidocaine 5 % topical patch 1 patch topical ONCE 06/20/24 06/20/24 History methocarbamol 500 mg tablet 500 mg PO TIDP PRN Pain 06/20/24 06/20/24 History mometasone-formoterol HFA 50 mcg-5 2 puff inhalation BID 06/20/24 06/20/24 History mcg/actuation aerosol inhaler (Dulera) mycophenolate mofetil 500 mg tablet 500 mg PO BID 06/20/24 06/20/24 History New Prescriptions to Start Prescriptions: Allergies Allergy/AdvReac Type Severity Reaction Status Date / Time niacin [NIACIN] Allergy Severe S-DIFF. Verified 05/23/24 13:28 BREATHING Penicillins [PENICILLINS] Allergy Intermediate I-HIVES Verified 05/23/24 13:28 ondansetron Allergy Mild ABD PAIN Verified 05/23/24 13:28 [From ZOFRAN ( HYDROCHLORIDE)] clindamycin Allergy Verified 05/23/24 13:28 metoclopramide [From Reglan] Allergy NAUSEA / Verified 05/23/24 13:28 VOMITING sulfamethoxazole Allergy Verified 05/23/24 13:28 [From Bactrim] trimethoprim [From Bactrim] Allergy Verified 05/23/24 13:28 vancomycin Allergy Redness of Verified 05/23/24 13:28 Skin prochlorperazine AdvReac Severe Verified 05/23/24 13:28 [From Compazine] Assessment and Plan *Assessment and plan (1) Neck pain: Status: Acute Category: Medical Code(s): M54.2 - Cervicalgia (2) Cervical spine degeneration: Status: Acute Category: Medical Code(s): M47.812 - Spondylosis without myelopathy or radiculopathy, cervical region Plan Given the pathology in her cervical spine I do not believe she is a candidate for spinal cord stimulation. I have talked her about adding oral medication to her intrathecal therapy to see if this will help with her pain symptoms and give her better quality of life. Will add Percocet 10 mg 3 times a day and Flexeril 10 mg 3 times a day along with a Lidoderm patch to see if this will help.
[2024-06-23 15:49] LABS: Erythrocyte Sedimentation Rate 33 mm/hr (0-30)
[2024-06-25 07:11] LABS: Complement C3 175 mg/dL (82-167)
[2024-06-26 16:18] LABS: Anti-Cardio Antibody IgM <9 MPL U/mL (0-12); Anti-Cardiolipin Antibody IgG <9 GPL U/mL (0-14)
[2024-06-26 17:58] LABS: Beta-2 Glycoprotein I Ab, IgG <9 (0-20); Beta-2 Glycoprotein I Ab, IgM <9 (0-32)
[2024-06-27 08:54] LABS: dsDNA AB Crithidia Negative (Negative)
[2024-07-12 14:58] LABS: RNA Polymerase IgG Ab <20
[2024-07-12 14:59] LABS: Miscellaneous Test SCANNED IMAGE
[2024-07-12 15:00] LABS: Miscellaneous Test SCANNED IMAGE
== END 2024-06-23 23:59 | disposition home or self-care (01) ==
PROVIDERS: Internal Medicine Rheumatology; PCP Family Medicine; Visit Provider Anesthesiology
DX: M54.2 Cervicalgia (principal); M47.812 Spondylosis without myelopathy or radiculopathy, cervical region; M34.9 Systemic sclerosis, unspecified; M79.7 Fibromyalgia; M25.551 Pain in right hip; M25.552 Pain in left hip
CPT/HCPCS: 36415; 71046; 73100; 73120; 73502; 80048; 80076; 83520; 85025; 85613; 85651; 86140; 86146; 86147; 86161; 86225; 99212; G0463

== ENCOUNTER 2024-07-04 13:05 | Day surgery (SDC) | payer OTHER, SELFPAY ==
[2024-07-04 13:25] VITALS: BP 103/65; PULSE 78; RESP 16; TEMP 36.2; O2SAT 94; BMI 40.3
[2024-07-04 14:00] VITALS: BP 101/41; PULSE 77; RESP 16; O2SAT 95
--- NOTE | 2024-07-04 14:08 | P.PCN_ITS ---
Procedure Date: 07/04/24 Time: 13:15 Anesthesiologist:: Otf Sherman CRNA Complications:: None Pre-procedure Diagnosis:: Degenerative disc lumbar spine multilevels. Lumbar radiculopathy. Lumbar postlaminectomy syndrome. Lumbar spondylosis. Degenerative disc cervical spine multilevels. Cervical radiculopathy. Post-procedure Diagnosis:: Same. Indications for Procedure:: Patient is a pleasant 53-year-old female comes to clinic today for intrathecal pain pump interrogation and refill. Patient currently being managed with hydromorphone 20 mg/mL at 6.35 mg/day. And bupivacaine 8 mg/mL at 2.54 mg/day. Patient is reporting some increased pain in the low back as well as bilateral hi ps and legs. She is requesting increase. I recommend a 5% increase. Patient is awake alert [place] x 3. In no acute distress. Flexion-extension cervical lumbar spine guarded secondary to pain. Deep tendon reflexes upper lower extremities normal. Motor strength upper and lower extremities normal. There is no gross sensory deficit. Gait is normal. Procedure Details:: Details of the procedure explained to the patient. The patient taken procedure and placed in prone position on the fluoroscopy table. The area of the pump was cleansed using chlorhexidine as a cleansing solution. The pump was interrogated. The pump was accessed with ease using fluoroscopy guidance with a 22-gauge inch and half needle. 5 mL of solution was withdrawn discarded appropriate. The pump was then filled with 20 cc of a solution containing hydromorphone 20 mg/mL and bupivacaine 8 mg/mL. The rate will be increased by 5%. The new hydromorphone rate is 6.6700 mg/day. The new bupivacaine rate is 2.6680 mg/day. Patient tolerated procedure without difficulty. There are no complications. Plan and Disposition:: Patient was discharged without incident.
== END 2024-07-04 14:00 | disposition home or self-care (01) ==
LOC: SC.PAINP 13:05
PROVIDERS: PCP Family Medicine; Visit Provider Nurse Anesthetist, Certified Registered
DX: M96.1 Postlaminectomy syndrome, not elsewhere classified; M51.36 Other intervertebral disc degeneration, lumbar region; M47.816 Spondylosis without myelopathy or radiculopathy, lumbar region; M50.30 Other cervical disc degeneration, unspecified cervical region
CPT/HCPCS: 95991

== ENCOUNTER 2024-07-14 14:35 | Outpatient (POV) | payer OTHER, SELFPAY ==
[2024-07-14 14:46] VITALS: BP 127/69; PULSE 83; RESP 16; TEMP 36.9; O2SAT 92; BMI 38.7
--- NOTE | 2024-07-14 17:04 | A.OFFVIS_ITS ---
[facility] Disclaimer: The information contained in this section may have been updated after the patient was seen, as this information can be updated by other users. Medical History Dark urine Diastolic congestive heart failure Chest pain Nocturnal hypoxia History of 2019 novel coronavirus disease (COVID-19) Pulmonary fibrosis, unspecified Asthma Abdominal bloating Hypothyroid Pelvic pressure in female Implantable intrathecal infusion pump present Gastroparesis Follow-up exam Thickened endometrium Morbid obesity due to excess calories ILD (interstitial lung disease) Nocturnal hypoxemia History of 2019 novel coronavirus disease (COVID-19) Abnormal computerized axial tomography of chest History of environmental allergies Family history of asthma Dyspnea on exertion Moderate persistent asthma Family history of atrial fibrillation Palpitations HTN (hypertension) HLD (hyperlipidemia) Daytime somnolence Edema Surgical History History of foot surgery History of surgery Hx of fusion of cervical spine History of cervical discectomy H/O brain surgery H/O myomectomy Status post lumbar spine surgery for decompression of spinal cord History of tubal ligation History of esophagogastroduodenoscopy (EGD) History of section History of colonoscopy Hx of cholecystectomy History of cardiac cath Family History Grandmother COPD (chronic obstructive pulmonary disease) Asthma Mother COPD (chronic obstructive pulmonary disease) Asthma Grandfather Lung cancer Other Family history of breast cancer Social History Smoking Status: Never smoker second hand exposure: No alcohol intake: never substance use type: denies use current occupational status: other Travel in the last 8 weeks: None household members: other housing: house lives independently: Yes marital status: single current occupational exposures/hazards: No caffeine: Yes special bridgette needs: No agree to transfusion: No do you feel safe at home: Yes victim of physical abuse: No victim of emotional abuse: No victim of sexual abuse: No would you like helpful sources: No Meds Home Medications and Allergies Home Medications ?Medication ?Instructions ?Recorded ?Confirmed ?Type clobetasol 0.05 % topical ointment 1 applic topical BID 06/20/24 07/14/24 History clonidine HCl 0.1 mg tablet 0.1 mg PO DAILY 06/20/24 07/14/24 History dexlansoprazole 60 mg 60 mg PO DAILY 06/20/24 07/14/24 History capsule,biphase delayed release hydrocortisone 5 mg tablet 5 mg PO DAILY 06/20/24 07/14/24 History levothyroxine 137 mcg tablet 137 mcg PO DAILY 06/20/24 07/14/24 History (Synthroid) lidocaine 5 % topical patch 1 patch topical ONCE 06/20/24 07/14/24 History methocarbamol 500 mg tablet 500 mg PO TIDP PRN Pain 06/20/24 07/14/24 History mometasone-formoterol HFA 50 mcg-5 2 puff inhalation BID 06/20/24 07/14/24 History mcg/actuation aerosol inhaler (Dulera) mycophenolate mofetil 500 mg tablet 500 mg PO BID 06/20/24 07/14/24 History naloxone 4 mg/actuation nasal spray 4 mg intranasal Q2M PRN opioid 06/26/24 07/14/24 Rx overdose #2 ea New Prescriptions to Start Prescriptions: Allergies Allergy/AdvReac Type Severity Reaction Status Date / Time niacin [NIACIN] Allergy Severe S-DIFF. Verified 07/14/24 14:46 BREATHING Penicillins [PENICILLINS] Allergy Intermediate I-HIVES Verified 07/14/24 14:46 ondansetron Allergy Mild ABD PAIN Verified 07/14/24 14:46 [From ZOFRAN ( HYDROCHLORIDE)] clindamycin Allergy Verified 07/14/24 14:46 metoclopramide [From Reglan] Allergy NAUSEA / Verified 07/14/24 14:46 VOMITING sulfamethoxazole Allergy Verified 07/14/24 14:46 [From Bactrim] trimethoprim [From Bactrim] Allergy Verified 07/14/24 14:46 vancomycin Allergy Redness of Verified 07/14/24 14:46 Skin prochlorperazine AdvReac Severe Verified 07/14/24 14:46 [From Compazine] pregabalin AdvReac Verified 07/14/24 14:46
--- NOTE | 2024-07-14 17:05 | EXP.PAIN.PRO ---
Procedure Date: 07/14/24 Time: 17:05 Anesthesiologist:: Robert Boyce MD Complications:: None Pre-procedure Diagnosis:: Degenerative disease of the cervical spine with previous cervical fusion and significant spondylolisthesis with cervical stenosis. Degenerative disease of lumbar spine with lumbar radiculopathy symptoms. Post-procedure Diagnosis:: Same Indications for Procedure:: This patient is a pleasant 53-year-old white female who we are seeing for neck pain and low back pain with cervical and lumbar radicular symptoms. She has significant spondylolisthesis of the cervical spine with problems above her fusion. She is scheduled to see the Dr. Ramos at [facility] next week. I do believe she needs surgical intervention. She is having some increasing pain today. We will increase her intrathecal infusion today. Will increase her pump to 7.5 mg/day of intrathecal hydromorphone/bupivacaine. We will also refill her Percocet 10 mg 1 tablet 3 times a day. Will increase her gabapentin to 800 mg 3 times a day. We will also give her prednisone 20 mg twice a day for 5 days to help with pain symptoms. She is also inquiring about Botox for her migraines. And she is also inquiring about trigger point injections to her cervical paraspinous and upper trapezius muscle. Will also refill her Flexeril today. George and drug screen are all appropriate. Procedure Details:: Informed consent was obtained risk and benefits of the procedure were explained to the patient. The patient was taken to the procedure room. The pump was interrogated intrathecal hydromorphone/bupivacaine infusion was increased to 7.5 mg/day. Plan and Disposition:: Will follow-up with her in 1 month. Will reevaluate her symptoms she is scheduled for refill on her before August 17, 2024. Today we will refill her Flexeril, Percocet, increase her gabapentin to 800 mg 3 times a day, started on prednisone 20 mg twice a day for 5 days. Will follow-up on her appoint with Dr. Ramos. She also does have migraines so we will seek approval for Botox injections for migraines. Will also seek approval for trigger point injections to cervical paraspinous muscles and upper trapezius muscles.
== END 2024-07-14 23:59 | disposition home or self-care (01) ==
PROVIDERS: PCP Family Medicine; Visit Provider Anesthesiology
DX: M47.22 Other spondylosis with radiculopathy, cervical region (principal); M51.16 Intervertebral disc disorders with radiculopathy, lumbar region; M79.12 Myalgia of auxiliary muscles, head and neck
CPT/HCPCS: 62368; 99212; G0463

== ENCOUNTER 2024-07-22 13:37 | Emergency (ER) | payer OTHER, SELFPAY ==
--- NOTE | 2024-07-22 13:32 | ECG_ITS ---
APPROVED REPORT Exam: Resting ECG HR:76 bpm ECG Measurements Heart Rate 76 AXES NM 203 P 61 QRSd 100 QRS 32 QT 343 T 53 QTc 373 Conclusion SINUS RHYTHM LOW QRS VOLTAGE IN PRECORDIAL LEADS [QRS DEFLECTION < 1.0 mV IN CHEST LEADS] BORDERLINE ECG Electronically signed by : LILIAN MORENO, 07/22/2024 15:54:05
[2024-07-22 13:37] VITALS: BP 172/88; PULSE 79; RESP 19; TEMP 36.5; O2SAT 91; BMI 39.9
--- NOTE | 2024-07-22 13:59 | XR_ITS ---
PROCEDURE INFORMATION: Exam: XR Chest Exam date and time: 07/22/2024 2:06 PM Age: 53 years old Clinical indication: Pain; Chest pressure; Additional info: Chest pain TECHNIQUE: Imaging protocol: Radiologic exam of the chest. Views: 1 view. COMPARISON: CR XR CHEST 2V 06/23/2024 2:12 PM FINDINGS: Lungs: No evidence of acute airspace infiltrate. No pulmonary edema. Pleural spaces: No large pleural effusion. No pneumothorax. Heart/Mediastinum: Cardiomediastinal silhouette is unchanged from prior exam, accounting for differences in technique. Bones/joints: No evidence of acute osseous abnormality. IMPRESSION: No acute findings.
[2024-07-22 14:00] VITALS: BP 138/83; PULSE 75; O2SAT 92
[2024-07-22 14:30] VITALS: BP 151/85; PULSE 65; O2SAT 90
--- NOTE | 2024-07-22 14:30 | ED_ITS ---
Discharge Plan Disposition Chief Complaint: Chest Pain Prescriptions Prescriptions: No Action naloxone 4 mg/actuation spray,non-aerosol 4 mg intranasal Q2M PRN (Reason: opioid overdose) Qty: 2 0RF Rx Instructions: spray 1 dose into ONE nostril; alternate nostrils w each dose until help arrives hydrocortisone 5 mg tablet 5 mg PO DAILY Patient Comments: TAKE TWO TABLETS BY MOUTH EVERY DAY IN THE MORNING and TAKE ONE TABLET BY MOUTH EVERY DAY in THE afternoon methocarbamol 500 mg tablet 500 mg PO TIDP PRN (Reason: Pain) Patient Comments: TAKE TWO TABLETS BY MOUTH THREE TIMES DAILY NEEDED levothyroxine [Synthroid] 137 mcg tablet 137 mcg PO DAILY Patient Comments: TAKE ONE TABLET BY MOUTH EVERY DAY, WEDNESDAY THROUGH WEDNESDAY clonidine HCl 0.1 mg tablet 0.1 mg PO DAILY Patient Comments: TAKE ONE TABLET BY MOUTH THREE TIMES DAILY NEEDED FOR hypertensive emergency mycophenolate mofetil 500 mg tablet 500 mg PO BID Patient Comments: TAKE ONE TABLET BY MOUTH TWICE DAILY lidocaine 5 % adhesive patch,medicated 1 patch topical ONCE Patient Comments: APPLY 1 PATCH TOPICALLY TO THE AFFECTED AREA ONCE DAILY AND LEAVE IN PLACE FOR 12 HOURS, THEN REMOVE AND LEAVE OFF FOR 12 HOURS clobetasol 0.05 % ointment 1 applic TOPICAL BID Patient Comments: APPLY TOPICALLY TO THE AFFECTED AREA(S) ON LEG AND ANKLE TWICE DAILY AVOID USING ON FACE, ARMPITS, AND GROIN. USE FOR 3 WEEKS, TAKE 1 WEEK BREAK. REPEAT NEEDED dexlansoprazole 60 mg capsule,biphase delayed releas 60 mg PO DAILY Patient Comments: TAKE ONE CAPSULE BY MOUTH EVERY DAY Dulera 50-5 mcg/actuation HFA aerosol inhaler 2 puff INHALATION BID Patient Comments: INHALE TWO PUFFS BY MOUTH EVERY TWELVE HOURS Referrals Follow up/Referrals: Gayla Galan MD [Primary Care Provider] - See instructions Activity Restrictions/Add. Instructions Additional Instructions/Restrictions: You were evaluated in the emergency department today. At this time, it is very important that you follow-up closely outpatient with your pain management, account management specialist, and your primary care team. Ultimately, they can guide you on further evaluation and management of your chronic neck pain. Your press department manager can help also guide you on your chronic issues with inflammation and skin changes. Please follow-up closely with them as well. Ultimately, your chest pain workup is reassuring today. Given this, it was felt that you are appropriate for discharge home. Please continue with your outpatient pain management regimen as prescribed. Present to the emergency department for new acute symptoms. Please note that you were given a strong muscle relaxer here in the emergency department today. Do not drive or operate heavy machinery. Clinical Impressions Clinical Impression: Chest pain, Chronic neck pain Instructions Patient Instructions: DI for Atypical Chest Pain, DI for Chronic Pain -- Adult, DI for Chronic Neck Pain Print Language Print Language: Guinean Discharge ED Provider: Cristela Le [facility] General Chief Complaint: Chest Pain Stated Complaint: chest heaviness Time Seen by Provider: 07/22/24 13:41 Mode of Arrival: Ambulatory Source of Information: Patient Limitations: No Limitations Description of Symptoms (Recalled from ER Triage Doc. by RN): pt presents to ED with c/o chest heaviness ongoing for 1 week. pt reports heaviness is in chest and abdomen. pt reports numbness and tingiling in bilateral arms/hands. pt reports she has been told she has internal decapitation and pt is concerned. History of Present Illness HPI narrative: This patient is a 53-year-old female with a history of chronic neck pain and degenerative changes to her cervical spine, hypertension, hyperlipidemia, prior history of DVT, pulmonary fibrosis, Raynaud's syndrome, scleroderma, spina bifida, Chiari malformation, and gastroparesis presenting to the emergency department for evaluation with concern for chest tightness and shortness of breath. She states that for about a week now, she feels like something is been squeezing her chest. It feels like an elephant sitting on it. She does note that her pain pump dose was increased, so her pain management doctor thought it might be related to this. She is worried that her internal decapitation is getting worse. She notes chronically, she has skin mottling, discoloration of her extremities, and then the chronic neck pain. She notes that she has been told that she is internally decapitating. States she is been seen by multiple spine surgeons but no one wants to do anything. I reviewed medical records from as well as here and noted that she has been seen multiple times for chronic degeneration to her cervical spine as well as her Chiari malformation and spina bifida, and this is why she follows with pain management. She notes that she has been advised to go to to the ER where they have spine, but she comes here because she likes it here. She states she generally comes here for pain control and nausea control, as she chronically deals with these issues. Related Data Home Medications ?Medication ?Instructions ?Recorded ?Confirmed clobetasol 0.05 % topical ointment 1 applic topical BID 06/20/24 07/14/24 clonidine HCl 0.1 mg tablet 0.1 mg PO DAILY 06/20/24 07/14/24 dexlansoprazole 60 mg 60 mg PO DAILY 06/20/24 07/14/24 capsule,biphase delayed release hydrocortisone 5 mg tablet 5 mg PO DAILY 06/20/24 07/14/24 levothyroxine 137 mcg tablet 137 mcg PO DAILY 06/20/24 07/14/24 (Synthroid) lidocaine 5 % topical patch 1 patch topical ONCE 06/20/24 07/14/24 methocarbamol 500 mg tablet 500 mg PO TIDP PRN Pain 06/20/24 07/14/24 mometasone-formoterol HFA 50 mcg-5 2 puff inhalation BID 06/20/24 07/14/24 mcg/actuation aerosol inhaler (Dulera) mycophenolate mofetil 500 mg tablet 500 mg PO BID 06/20/24 07/14/24 Previous Rx's ?Medication ?Instructions ?Recorded naloxone 4 mg/actuation nasal spray 4 mg intranasal Q2M PRN opioid 06/26/24 overdose #2 ea Allergies Allergy/AdvReac Type Severity Reaction Status Date / Time niacin [NIACIN] Allergy Severe S-DIFF. Verified 07/14/24 14:46 BREATHING Penicillins [PENICILLINS] Allergy Intermediate I-HIVES Verified 07/14/24 14:46 ondansetron Allergy Mild ABD PAIN Verified 07/14/24 14:46 [From ZOFRAN ( HYDROCHLORIDE)] clindamycin Allergy Verified 07/14/24 14:46 metoclopramide [From Reglan] Allergy NAUSEA / Verified 07/14/24 14:46 VOMITING sulfamethoxazole Allergy Verified 07/14/24 14:46 [From Bactrim] trimethoprim [From Bactrim] Allergy Verified 07/14/24 14:46 vancomycin Allergy Redness of Verified 07/14/24 14:46 Skin prochlorperazine AdvReac Severe Verified 07/14/24 14:46 [From Compazine] pregabalin AdvReac Verified 07/14/24 14:46 [facility] Disclaimer: The information contained in this section may have been updated after the patient was seen, as this information can be updated by other users. Medical History Dark urine Diastolic congestive heart failure Chest pain Nocturnal hypoxia History of 2019 novel coronavirus disease (COVID-19) Pulmonary fibrosis, unspecified Asthma Abdominal bloating Hypothyroid Pelvic pressure in female Implantable intrathecal infusion pump present Gastroparesis Follow-up exam Thickened endometrium Morbid obesity due to excess calories ILD (interstitial lung disease) Nocturnal hypoxemia History of 2019 novel coronavirus disease (COVID-19) Abnormal computerized axial tomography of chest History of environmental allergies Family history of asthma Dyspnea on exertion Moderate persistent asthma Family history of atrial fibrillation Palpitations HTN (hypertension) HLD (hyperlipidemia) Daytime somnolence Edema Surgical History History of foot surgery History of surgery Hx of fusion of cervical spine History of cervical discectomy H/O brain surgery H/O myomectomy Status post lumbar spine surgery for decompression of spinal cord History of tubal ligation History of esophagogastroduodenoscopy (EGD) History of section History of colonoscopy Hx of cholecystectomy History of cardiac cath Family History Grandmother COPD (chronic obstructive pulmonary disease) Asthma Mother COPD (chronic obstructive pulmonary disease) Asthma Grandfather Lung cancer Other Family history of breast cancer Social History Smoking Status: Never smoker second hand exposure: No alcohol intake: never substance use type: denies use current occupational status: other Travel in the last 8 weeks: None household members: other housing: house lives independently: Yes marital status: single current occupational exposures/hazards: No caffeine: Yes special bridgette needs: No agree to transfusion: No do you feel safe at home: Yes victim of physical abuse: No victim of emotional abuse: No victim of sexual abuse: No would you like helpful sources: No ROS Obtained: Yes All systems reviewed & no additional complaints except as documented Physical Exam General General appearance: alert, in no apparent distress and obese Head Head exam: atraumatic and normocephalic Eye Eye exam: Present normal appearance, PERRL and EOMI ENT ENT exam: Present normal exam, normal oropharynx, mucous membranes moist and normal external ear exam Neck Neck exam: Present normal inspection, full ROM and trachea midline; Absent tenderness Chest Chest inspection: Present normal inspection and symmetric chest wall rise; Absent tenderness Respiratory Respiratory exam: Present normal lung sounds bilaterally; Absent respiratory distress, wheezes, stridor or accessory muscle use Cardiovascular Cardiovascular exam: Present regular rate and normal rhythm Abdominal Exam Abdominal exam: Present soft; Absent distention, tenderness or guarding Extremities Exam Extremities exam: Present normal inspection, full ROM and normal capillary refill; Absent tenderness or edema Back Exam Back exam: Present normal inspection and full ROM; Absent tenderness Neurological Exam Neurological exam: Present alert, oriented X3, CN II-XII intact and other (at her neurologic baseline); Absent motor sensory deficit Psychiatric Psychiatric exam: Present normal affect and normal mood Skin Skin exam: Present warm, dry and other (peripheral cyanosis/mottling consistent with chronic Raynaud's) HEART Score HEART Score HEART Score assessment performed?: Yes History (anamnesis): Slightly suspicious ECG: Normal Age: 45-65 years Risk factors: 3 or more risk factors Troponin: </= normal limit HEART Score: 3 Critical Care Critical Care Time Critical Care Time: No Medical Decision Making George Inquiry Pt receiving controlled substance: No Vital Signs Vital Signs: 07/22/24 13:37 07/22/24 14:00 07/22/24 14:30 Temperature 97.7 F Temperature Source Oral Pulse Rate 75 65 Pulse Rate [Left Radial] 79 Respiratory Rate 19 Blood Pressure 138/83 151/85 H Blood Pressure [Right Arm] 172/88 H Blood Pressure Mean [Right Arm] 116 02 Sat by Pulse Oximetry 91 L 92 L 90 L Oxygen Delivery Method Room Air Room Air Room Air 07/22/24 14:52 Temperature Temperature Source Pulse Rate 72 Pulse Rate [Left Radial] Respiratory Rate Blood Pressure Blood Pressure [Right Arm] Blood Pressure Mean [Right Arm] 02 Sat by Pulse Oximetry 95 Oxygen Delivery Method Lab Data Labs: Lab Results 07/22/24 13:41: WBC 6.1, RBC 4.04 L, Hgb 12.5, Hct 37.4, MCV 92.6, MCH 30.9, MCHC 33.4, RDW 15.7, Plt Count 187, MPV 9.6, Neut % (Auto) 74.3, Lymph % (Auto) 20.5, [place] % (Auto) 3.7, Eos % (Auto) 1.1, Baso % (Auto) 0.5, Neut # (Auto) 4.5, Lymph # (Auto) 1.2, [place] # (Auto) 0.2, Eos # (Auto) 0.1, Baso # (Auto) 0.0, D- Dimer 0.46, Sodium 140, Potassium 4.2, Chloride 106, Carbon Dioxide 30, BUN 32 H , Creatinine 0.70, Estimated Creat Clear 156, Estimated GFR 87, Est GFR ( Amer) 105, Glucose 98, Calcium 9.7, Total Bilirubin 0.4, AST 49 H, ALT 41, Alkaline Phosphatase 68, Troponin I < 0.01, NT-Pro-B Natriuret Pep < 20.0, Total Protein 7.7, Albumin 4.6, Globulin 3.1, Albumin/Globulin Ratio 1.5, TSH 0.58, T hyroxine (T4) 13.7 H 07/22/24 14:54: Urine Color Yellow, Urine Appearance Clear, Urine pH 7.5, Ur Specific [place] 1.010, Urine Protein Negative, Urine Glucose (UA) Negative, Urine Ketones Negative, Urine Blood Negative, Urine Nitrate Negative, Urine Bilirubin Negative, Urine Urobilinogen 0.2, Ur Leukocyte Esterase Negative, Urine RBC None, Urine WBC None, Ur Squamous Epith Cells Occasional, Amorphous Sediment 2+, Urine Bacteria Trace 07/22/24 13:41 07/22/24 13:41 Response Orders (Tests/Meds): ED MEDICATIONS Generic Name Dose Route Start Last Admin Trade Name Freq PRN Reason Stop Dose Admin Diazepam 2.5 mg 07/22/24 15:44 Diazepam 5mg Tablet PO 07/22/24 15:45 ONCE ONE Ketorolac Tromethamine 15 mg 07/22/24 15:44 Ketorolac 30mg/Ml Vial IV 07/22/24 15:45 ONCE ONE Lidocaine 1 each 07/22/24 15:44 Lidocaine 5% Transdermal Patch TP 07/22/24 15:45 ONCE ONE Discontinued Medications Generic Name Dose Route Start Last Admin Trade Name Freq PRN Reason Stop Dose Admin Promethazine HCl 25 mg 07/22/24 14:27 07/22/24 14:38 Promethazine Hcl 25mg/Ml 1ml Vial IV 07/22/24 14:28 25 mg ONCE ONE Administration Sodium Chloride 25 ml 07/22/24 14:27 07/22/24 14:38 Sodium Chloride 0.9% 25ml Bag IV 07/22/24 14:28 25 ml ONCE ONE Administration ORDERS Category Date Time Status CXR --portable [XR chest portable] Stat Exams 07/22/24 13:59 Completed BNP [NT Pro Brain Natriuretic Pep.] Stat Lab 07/22/24 13:41 Completed CBC w/Auto Diff [Complete Blood Count Auto Diff] Stat Lab 07/22/24 13:41 Completed CMP [Comprehensive Metabolic Panel] Stat Lab 07/22/24 13:41 Results D-Dimer Stat Lab 07/22/24 13:41 Completed T4 (Thyroxine) Stat Lab 07/22/24 13:41 Completed TSH [Thyroid Stimulating Hormone] Stat Lab 07/22/24 13:41 Completed Trop I [Troponin I] Stat Lab 07/22/24 13:41 Results Troponin I Q3H Lab 07/22/24 17:00 Ordered Troponin I Q3H Lab 07/22/24 20:00 Ordered UA [Urinalysis and Microscopic] Stat Lab 07/22/24 14:54 Completed ECG Data Tracing #1: Attestation: I reviewed this ECG and interpreted as documented below: ECG Narrative: Normal sinus rhythm with ventricular rate of [address] changes concerning for ischemia. Normal axis and intervals. ECG initial impression date: 07/22/24 ECG initial impression time: 13:34 MDM Narrative Medical Decision Narrative: In summary, this patient is a 53-year-old female presenting to the Emergency Department for evaluation of chest tightness and heaviness. She also has worsening complaints in the setting of chronic neck degeneration, spina bifida, and Chiari malformation. Differential diagnoses considered include but are not limited to ACS, dysrhythmia, PE, pneumonia, pleurisy, viral syndrome, costochondritis, radiculopathy. Ruling out the most morbid conditions drove assessment. It should be noted patient's history includes extensive rheumatologic history including scleroderma and Raynaud's as well as her chronic spine degeneration including spina bifida, Chiari malformation, and C-spine arthritis status post surgery which are not at goal therapy. This complicates all aspects of care by increasing patient's risk for morbidity. I reviewed patient's past medical records and noted previous evaluations at by rheumatology as well as previous evaluations here in the ED for acute on chronic pain related to her neck degeneration. She has had previous evaluations with similar complaints to today, except the chest tightness is a new. On exam, the patient is sitting upright at her neurologic baseline. She does have peripheral mottling consistent with her Raynaud's, but I do remember on previous evaluation of her that this was also present. Cardiopulmonary exam is reassuring. EKG was obtained and reassuring. At this time I advised the patient that I do not feel there is likely anything we can do for her chronic neck pain and spine issues, as she needs to continue follow-up outpatient with her specialists and team regarding this. She also needs to follow-up with them regarding her chronic rheumatologic issues. At this time I do feel that it is important to rule out acute cardiac etiology of her chest tightness and pressure. Workup included CBC, CMP, troponin, TSH, T4, BNP, D-dimer, urinalysis, chest x-ray, EKG. EKG obtained is reassuring. Patient was given IV Phenergan for nausea. I independently interpreted XR prior to the radiologist read and noted focal consolidation. Please see their read for final interpretation. Labs were obtained that demonstrated negative D-dimer, negative troponin, no other acutely concerning abnormalities. Her labs are around her baseline. Ultimately, I feel she has an acute exacerbation of chronic neurologic symptoms and radiculopathy causing her tightness and pain. Ultimately, we unfortunately do not have spine to offer her and she does not want transfer at this time for spine evaluation, as she states that there is nothing that be can be done to help her. She states she is been told this by multiple doctors. I encouraged her to get another spine opinion. I also advised that she should follow-up very closely with her press department manager given her scleroderma and Raynaud's. Ultimately since she is at her baseline, is alert and oriented and conversational with reassuring vital signs on cardiac telemetry, I feel she is appropriate for discharge home. Prior to discharge for symptomatic improvement, I did give her a small dose of Valium as well as Toradol. She was discharged home with instructions for supportive management and close follow-up.
[2024-07-22] MEDS: PROMETHAZINE HCL 25MG/ML 1ML VIAL 25 MG IV (14:38)
[2024-07-22] MEDS: SODIUM CHLORIDE 0.9% 25ML BAG 25 ML IV (14:38)
[2024-07-22 14:46] LABS: D-Dimer 0.46 ug/mL (0.0-0.5)
[2024-07-22 14:52] VITALS: PULSE 72; O2SAT 95
[2024-07-22 14:52] LABS: NT Pro Brain Natriuretic Pep. < 20.0 pg/mL (0-125)
[2024-07-22 14:59] LABS: T4 (Thyroxine) 13.7 ug/dl (5.53-11.0)
[2024-07-22 14:59] LABS: Microscopic, Urine URINE MICROSCOPIC (MICROSCOPIC)
[2024-07-22 15:01] LABS: Appearance,Urine CLEAR (Clear); Bilirubin,Urine Negative (Negative); Blood, Urine Negative (Negative); Color,Urine YELLOW (Yellow); Glucose,Urine (UA) Negative (Negative); Ketones,Urine Negative (Negative); Leukocyte Esterase,Urine Negative (Negative); Nitrate,Urine Negative (Negative); PH,Urine 7.5 (5.0-8.5); Protein,Urine Negative (Negative); Urobilinogen,Urine 0.2 EU/dl (0.2)
[2024-07-22 15:04] LABS: Basophils % 0.5 % (0.1-2.0); Eosinophils # 0.1 K/mm3 (0.0-0.4); Eosinophils % 1.1 % (0.1-12.0); Hematocrit 37.4 % (37.0-47.0); Hemoglobin 12.5 g/dL (12.2-16.2); Lymphocytes # 1.2 K/mm3 (0.7-4.5); Lymphocytes % 20.5 % (10-50); Mean Corpuscular HGB Conc 33.4 g/dL (31.8-35.4); Mean Corpuscular Hemoglobin 30.9 pg (27.0-31.2); Mean Corpuscular Volume 92.6 fl (81-99); Mean Platelet Volume 9.6 fl (7.4-10.4); Monocytes # 0.2 K/mm3 (0.1-1.0); Monocytes % 3.7 % (1.7-9.3); Neutrophils # 4.5 K/mm3 (1.8-7.8); Neutrophils % 74.3 % (37.0-80.0); Platelet Count 187 K/mm3 (142-424); Red Blood Count 4.04 M/mm3 (4.20-5.40); Red Cell Distribution Width 15.7 % (11.5-17.5); White Blood Count 6.1 K/mm3 (4.8-10.8)
[2024-07-22 15:13] LABS: Thyroid Stimulating Hormone 0.58 uIU/mL (0.465-4.68)
[2024-07-22 15:16] LABS: Amorphous Sediment,Urine 2+ /lpf; Bacteria,Urine Trace /lpf; Squamous Epithelial Cell,Urine Occasional #/hpf (0-5)
--- NOTE | 2024-07-22 15:20 | PC.NURSE ---
pt refused covid swab due to neck pain
[2024-07-22 15:25] LABS: Albumin Level 4.6 g/dl (3.5-5.0); Chloride 106 mmol/L (98-107)
[2024-07-22 15:26] LABS: Potassium 4.2 mmoL/L (3.5-5.1)
[2024-07-22 15:28] LABS: Alanine Aminotransferase 41 U/L (12-78); Albumin/Globulin Ratio 1.5 (1.1-1.8); Alkaline Phosphatase 68 U/L (38-126); Aspartate Amino Transferase 49 U/L (14-36); Bilirubin,Total 0.4 mg/dl (0.2-1.3); Blood Urea Nitrogen 32 mg/dl (7-17); Carbon Dioxide 30 mmol/L (22.0-30.0); Creatinine Clearance Estimated 156 mL/min (50-200); Estimated Glomerular Filt Rate 87 ml/min (>60); GFR (African American) 105 ML/MIN (>60); Globulin 3.1 g/dL (1.3-3.2); Total Protein,Serum 7.7 g/dl (6.3-8.2)
[2024-07-22 15:29] LABS: Calcium 9.7 mg/dl (8.4-10.2); Glucose 98 mg/dl (74-100)
[2024-07-22 15:43] LABS: Troponin I < 0.01 ng/ml (0.00-0.034)
[2024-07-22 15:51] LABS: Anion Gap 8.2 mEq/L (5-15); Sodium 140 mmol/L (136-145)
[2024-07-22] MEDS: diazePAM 5MG TABLET 2.5 MG PO (16:00)
[2024-07-22] MEDS: KETOROLAC 30MG/ML VIAL 15 MG IV (16:00)
[2024-07-22] MEDS: LIDOCAINE 5% TRANSDERMAL PATCH 1 EACH TP (16:01)
[2024-07-22 16:05] VITALS: BP 156/89; PULSE 78; RESP 19; TEMP 36.6
== END 2024-07-22 16:10 | disposition home or self-care (01) ==
PROVIDERS: Emergency Provider Emergency Medicine; PCP Family Medicine
DX: R07.89 Other chest pain (principal); R06.02 Shortness of breath; M54.2 Cervicalgia; G89.29 Other chronic pain; I11.0 Hypertensive heart disease with heart failure; I50.30 Unspecified diastolic (congestive) heart failure; J84.10 Pulmonary fibrosis, unspecified; E03.9 Hypothyroidism, unspecified; K31.84 Gastroparesis; J45.40 Moderate persistent asthma, uncomplicated; E78.5 Hyperlipidemia, unspecified
CPT/HCPCS: 71045; 80050; 80053; 81001; 83880; 84436; 84443; 84484; 85025; 85378; 93005; 96374; 96375; 99285; J1885; J2550

== ENCOUNTER 2024-08-05 03:06 | Emergency (ER) | payer OTHER, SELFPAY ==
[2024-08-05] VITALS (9 sets, daily range): BP systolic 94–131; BP diastolic 52–85; PULSE 61–74; RESP 14–20; TEMP 36.3; O2SAT 95–100; BMI 40.3
--- NOTE | 2024-08-05 03:52 | CT_ITS ---
PROCEDURE INFORMATION: Exam: CT Head Without Contrast Exam date and time: 08/05/2024 4:39 AM Age: 54 years old Clinical indication: Injury or trauma; Fall; Other: Pain TECHNIQUE: Imaging protocol: Computed tomography of the head without contrast. Radiation optimization: All CT scans at this facility use at least one of these dose optimization techniques: automated exposure control; mA and/or kV adjustment per patient size (includes targeted exams where dose is matched to clinical indication); or iterative reconstruction. COMPARISON: CT ANGIO HEAD 04/21/2023 8:06 PM FINDINGS: Brain: There is no evidence of acute parenchymal hemorrhage, extra-axial collection, or acute infarction. There is no mass effect, midline shift, or downward herniation. Cerebral ventricles: No ventriculomegaly. Paranasal sinuses: Visualized sinuses are unremarkable. No fluid levels. Mastoid air cells: Visualized mastoid air cells are well aerated. Bones: Unremarkable. No acute fracture. Soft tissues: Unremarkable. IMPRESSION: No acute intracranial abnormality.
--- NOTE | 2024-08-05 03:52 | CT_ITS ---
PROCEDURE INFORMATION: Exam: CTA Neck With Contrast Exam date and time: 08/05/2024 6:07 AM Age: 54 years old Clinical indication: Injury or trauma; Fall; Other: Pain; Additional info: Fall AMS chiari malformation TECHNIQUE: Imaging protocol: Computed tomographic angiography of the neck with contrast. Exam focused on the cervical segments of the vasculature. 3D rendering (Not supervised by radiologist): MIP and/or 3D reconstructed images were created by the technologist. Radiation optimization: All CT scans at this facility use at least one of these dose optimization techniques: automated exposure control; mA and/or kV adjustment per patient size (includes targeted exams where dose is matched to clinical indication); or iterative reconstruction. Contrast material: ISOVUE; Contrast volume: 80 ml; Contrast route: INTRAVENOUS (IV); COMPARISON: CT ANGIO NECK 04/21/2023 8:06 PM FINDINGS: Right common carotid artery: No stenosis. No dissection or occlusion. Approximates the midline. Right internal carotid artery: No stenosis of the extracranial segment. No dissection or occlusion. Approximates the midline. Right external carotid artery: No occlusion or stenosis of the origin. Left common carotid artery: No stenosis. No dissection or occlusion. Approximates the midline. Left internal carotid artery: No stenosis of the extracranial segment. No dissection or occlusion. Left external carotid artery: No occlusion or stenosis of the origin. Right vertebral artery: No stenosis. No dissection or occlusion. Left vertebral artery: No stenosis. No dissection or occlusion. Soft tissues: Normal. No significant soft tissue swelling. Bones/joints: Degenerative and postoperative changes of the spine. Postoperative changes of suboccipital craniectomy. Lungs: Atelectasis bilateral upper lobes. IMPRESSION: No arterial injury identified. REFERENCES: NASCET CRITERIA. The degree of stenosis in the cervical segment of the internal carotid artery is based on NASCET criteria. Normal is no stenosis. Mild is less than 50% stenosis. Moderate is 50-69% stenosis. Severe is 70% to 99% stenosis. Total occlusion is no detectable patent lumen.
--- NOTE | 2024-08-05 03:52 | CT_ITS ---
PROCEDURE INFORMATION: Exam: CTA Head With Contrast, Arteriography Exam date and time: 08/05/2024 6:07 AM Age: 54 years old Clinical indication: Injury or trauma; Fall; Other: Pain; Additional info: Fall AMS chiari malformation TECHNIQUE: Imaging protocol: Computed tomographic angiography of the head with contrast. Exam focused on the arteries. 3D rendering (Not supervised by radiologist): MIP and/or 3D reconstructed images were created by the technologist. Radiation optimization: All CT scans at this facility use at least one of these dose optimization techniques: automated exposure control; mA and/or kV adjustment per patient size (includes targeted exams where dose is matched to clinical indication); or iterative reconstruction. Contrast material: ISOVUE; Contrast volume: 80 ml; Contrast route: INTRAVENOUS (IV); COMPARISON: CT ANGIO HEAD 04/21/2023 8:06 PM FINDINGS: ANTERIOR CIRCULATION: Right internal carotid artery: Intracranial segment is patent with no significant stenosis. No aneurysm. Right middle cerebral artery: No occlusion or significant stenosis. No aneurysm. Right anterior cerebral artery: No occlusion or significant stenosis. No aneurysm. Left internal carotid artery: Intracranial segment is patent with no significant stenosis. No aneurysm. Left middle cerebral artery: No occlusion or significant stenosis. No aneurysm. Left anterior cerebral artery: No occlusion or significant stenosis. No aneurysm. POSTERIOR CIRCULATION: Right vertebral artery: No occlusion or significant stenosis. No aneurysm. Left vertebral artery: No occlusion or significant stenosis. No aneurysm. Basilar artery: No occlusion or significant stenosis. No aneurysm. Right posterior cerebral artery: No occlusion or significant stenosis. No aneurysm. Left posterior cerebral artery: No occlusion or significant stenosis. No aneurysm. Brain: No definite mass, mass effect, or midline shift. Cerebral ventricles: No ventriculomegaly. Bones/joints: Postoperative changes suboccipital craniectomy. Soft tissues: Unremarkable. IMPRESSION: Unremarkable CTA of the brain.
--- NOTE | 2024-08-05 03:52 | CT_ITS ---
PROCEDURE INFORMATION: Exam: CT Cervical Spine Without Contrast Exam date and time: 08/05/2024 4:41 AM Age: 54 years old Clinical indication: Injury or trauma; Fall; Other: Pain TECHNIQUE: Imaging protocol: Computed tomography of the cervical spine without contrast. Radiation optimization: All CT scans at this facility use at least one of these dose optimization techniques: automated exposure control; mA and/or kV adjustment per patient size (includes targeted exams where dose is matched to clinical indication); or iterative reconstruction. COMPARISON: CT CERVICAL SPINE WO CON 06/12/2024 12:27 PM FINDINGS: Bones/joints: No acute fracture. The patient is status post anterior cervical fusion from C5 through C7 and multilevel laminectomy surgery. There is reversal of normal cervical lordosis. There is slight grade 1 anterolisthesis of C2 on C3 and C3 on C4. There is multilevel advanced degenerative disc disease. Lungs: Lung apices are normal. Soft tissues: Unremarkable. IMPRESSION: No significant change or evidence of acute fracture.
--- NOTE | 2024-08-05 03:52 | CT_ITS ---
PROCEDURE INFORMATION: Exam: CT Lumbar Spine Without Contrast Exam date and time: 08/05/2024 4:46 AM Age: 54 years old Clinical indication: Injury or trauma; Fall; Other: Pain TECHNIQUE: Imaging protocol: Computed tomography of the lumbar spine without contrast. Radiation optimization: All CT scans at this facility use at least one of these dose optimization techniques: automated exposure control; mA and/or kV adjustment per patient size (includes targeted exams where dose is matched to clinical indication); or iterative reconstruction. COMPARISON: CT LUMBAR SPINE W CON 03/07/2024 6:15 PM FINDINGS: Tubes, catheters and devices: Stimulator lead is present. Bones/joints: Scattered degenerative change of the visualized osseous structures. No significant spinal canal stenosis. [id number] left foraminal stenosis at L2-L3 and L3-L4. For counting purposes there are hypoplastic T12 ribs. Five lumbar type non rib-bearing segments. Gallbladder and biliary ducts: Status post cholecystectomy. Soft tissues: Unremarkable. IMPRESSION: 1. No acute findings. 2. Degenerative changes with [id number] left foraminal stenosis at L2 through L4. 3. Incidental/nonacute findings as above.
--- NOTE | 2024-08-05 03:52 | CT_ITS ---
PROCEDURE INFORMATION: Exam: CT Thoracic Spine Without Contrast Exam date and time: 08/05/2024 4:43 AM Age: 54 years old Clinical indication: Injury or trauma; Fall; Other: Pain TECHNIQUE: Imaging protocol: Computed tomography of the thoracic spine without contrast. Radiation optimization: All CT scans at this facility use at least one of these dose optimization techniques: automated exposure control; mA and/or kV adjustment per patient size (includes targeted exams where dose is matched to clinical indication); or iterative reconstruction. COMPARISON: CT CERVICAL SPINE WO CON 08/05/2024 4:41 AM FINDINGS: Bones/joints: Lower cervical spine hardware without evidence for acute surgical complication. Lower cervical spine posterior decompression changes. Scattered endplate degenerative disease. No significant foraminal stenosis. Spinal epidural space: Calcified central disc protrusion at T8-T9 which likely produces mild anterior mass effect on the thecal sac. A few other calcified disc herniations are noted below T9 however do not demonstrate significant mass-effect upon the thecal sac. Soft tissues: Unremarkable. Lungs: Sequela of pulmonary granulomatous disease. Gallbladder and biliary ducts: Status post cholecystectomy. IMPRESSION: 1. No acute findings. 2. Degenerative change of the thoracic spine as detailed above. 3. Incidental findings as above.
[2024-08-05] MEDS: ACETAMINOPHEN 1,000MG/100ML VIAL 1000 MG IV (04:02)
[2024-08-05 04:04] LABS: Basophils # 0.1 K/mm3 (0-0.2); Basophils % 0.8 % (0.1-2.0); Eosinophils # 0.1 K/mm3 (0.0-0.4); Eosinophils % 2.1 % (0.1-12.0); Hematocrit 45.3 % (37.0-47.0); Hemoglobin 13.7 g/dL (12.2-16.2); Lymphocytes # 2.7 K/mm3 (0.7-4.5); Lymphocytes % 40.5 % (10-50); Mean Corpuscular HGB Conc 30.3 g/dL (31.8-35.4); Mean Corpuscular Hemoglobin 29.4 pg (27.0-31.2); Mean Corpuscular Volume 97.1 fl (81-99); Mean Platelet Volume 11.3 fl (7.4-10.4); Monocytes # 0.4 K/mm3 (0.1-1.0); Monocytes % 6.3 % (1.7-9.3); Neutrophils # 3.3 K/mm3 (1.8-7.8); Neutrophils % 50.3 % (37.0-80.0); Platelet Count 222 K/mm3 (142-424); Potassium 5.1 mmoL/L (3.5-5.1); Red Blood Count 4.67 M/mm3 (4.20-5.40); Red Cell Distribution Width 15.3 % (11.5-17.5); White Blood Count 6.6 K/mm3 (4.8-10.8)
[2024-08-05 04:06] LABS: Alanine Aminotransferase 49 U/L (12-78); Albumin Level 4.2 g/dl (3.5-5.0); Albumin/Globulin Ratio 1.2 (1.1-1.8); Alkaline Phosphatase 50 U/L (38-126); Anion Gap 7.1 mEq/L (5-15); Aspartate Amino Transferase 71 U/L (14-36); Bilirubin,Total 0.8 mg/dl (0.2-1.3); Blood Urea Nitrogen 28 mg/dl (7-17); Calcium 9.7 mg/dl (8.4-10.2); Carbon Dioxide 36 mmol/L (22.0-30.0); Chloride 101 mmol/L (98-107); Creatinine Clearance Estimated 161 mL/min (50-200); Estimated Glomerular Filt Rate 87 ml/min (>60); GFR (African American) 105 ML/MIN (>60); Globulin 3.4 g/dL (1.3-3.2); Glucose 110 mg/dl (74-100); Sodium 139 mmol/L (136-145); Total Protein,Serum 7.6 g/dl (6.3-8.2)
[2024-08-05] MEDS: diphenhydrAMINE 50MG/ML VIAL 25 MG IV (05:05)
[2024-08-05] MEDS: METHYLPREDNISOLONE SOD SUCC 125MG VIAL 125 MG IV (05:06)
--- NOTE | 2024-08-05 06:06 | ED_ITS ---
Discharge Plan Disposition Patient Disposition: Home, Self-Care Prescriptions Prescriptions: No Action prednisone 50 mg tablet 50 mg PO DAILY 5 Days Qty: 5 0RF naloxone 4 mg/actuation spray,non-aerosol 4 mg intranasal Q2M PRN (Reason: opioid overdose) Qty: 2 0RF Rx Instructions: spray 1 dose into ONE nostril; alternate nostrils w each dose until help arrives hydrocortisone 5 mg tablet 5 mg PO DAILY Patient Comments: TAKE TWO TABLETS BY MOUTH EVERY DAY IN THE MORNING and TAKE ONE TABLET BY MOUTH EVERY DAY in THE afternoon methocarbamol 500 mg tablet 500 mg PO TIDP PRN (Reason: Pain) Patient Comments: TAKE TWO TABLETS BY MOUTH THREE TIMES DAILY NEEDED levothyroxine [Synthroid] 137 mcg tablet 137 mcg PO DAILY Patient Comments: TAKE ONE TABLET BY MOUTH EVERY DAY, WEDNESDAY THROUGH WEDNESDAY clonidine HCl 0.1 mg tablet 0.1 mg PO DAILY Patient Comments: TAKE ONE TABLET BY MOUTH THREE TIMES DAILY NEEDED FOR hypertensive emergency mycophenolate mofetil 500 mg tablet 500 mg PO BID Patient Comments: TAKE ONE TABLET BY MOUTH TWICE DAILY lidocaine 5 % adhesive patch,medicated 1 patch topical ONCE Patient Comments: APPLY 1 PATCH TOPICALLY TO THE AFFECTED AREA ONCE DAILY AND LEAVE IN PLACE FOR 12 HOURS, THEN REMOVE AND LEAVE OFF FOR 12 HOURS clobetasol 0.05 % ointment 1 applic TOPICAL BID Patient Comments: APPLY TOPICALLY TO THE AFFECTED AREA(S) ON LEG AND ANKLE TWICE DAILY AVOID USING ON FACE, ARMPITS, AND GROIN. USE FOR 3 WEEKS, TAKE 1 WEEK BREAK. REPEAT NEEDED dexlansoprazole 60 mg capsule,biphase delayed releas 60 mg PO DAILY Patient Comments: TAKE ONE CAPSULE BY MOUTH EVERY DAY Dulera 50-5 mcg/actuation HFA aerosol inhaler 2 puff INHALATION BID Patient Comments: INHALE TWO PUFFS BY MOUTH EVERY TWELVE HOURS Referrals Follow up/Referrals: ProviderIliana MD [Primary Care Provider] - See instructions Christopher Abernathy MD [Physician] - See instructions (ILD) Activity Restrictions/Add. Instructions Additional Instructions/Restrictions: You were evaluated in the ER and are appropriate for discharge at this time. Continue home medications as previously prescribed. Drink plenty of water. Follow-up with pulmonology for reevaluation of your interstitial lung disease. Make an appoint with your primary care doctor for reevaluation. Return to the ER with new, worsening, or otherwise concerning symptoms. Clinical Impressions Clinical Impression: Neck pain, Prerenal azotemia Print Language Print Language: [place] Discharge ED Provider: Shruti Fields Adult HPI General Chief complaint: Shortness of Breath/Dyspnea Stated complaint: pain Time Seen by Provider: 08/05/24 03:34 Mode of Arrival: EMS Source of Information: Patient and EMS Limitations: No Limitations Description of Symptoms (Recalled from ER Triage Doc. by RN): pt reports she fell at home yesterday morning and has been expierencing back pain since. about 45 minutes ago she also began expierencing shortness of breath. History of Present Illness HPI narrative: 54-year-old female with multiple chronic medical conditions including interstitial lung disease on home oxygen, Chiari malformation, cervical laminectomy, obesity, chronic back pain presents to the ER with complaints of fall, neck pain, back pain. Patient reports she fell nearly 24 hours ago. It was a slide out of bed as she was trying to get up. She both rolled out of bed and started to stand up but her socks slipped on the slippery floor. She states she did not fall hard, did not hit her head, does not believe she lost consciousness. Patient laid on the floor for approximately 1 hour until she was able to pull her sheets off her bed and grab her phone. She then called a friend (boyfriend) who takes care of her at home. He came and helped her up, he states he put her on the couch where patient remained for the rest of the day which has been normal for her recently. He states later in the day he helped the patient eat which is normal due to upper extremity weakness, and helped the patient in bed around 10 to 10:30 PM. He states because patient was having increased pain in her head and neck from the fall earlier in the day he stayed at the house and around midnight she started complaining of worsening pain and considering coming to the ER. A while later, boyfriend called EMS. Patient did report shortness of breath the EMS, however she states this is not significantly different than her baseline. Boyfriend reports patient has been using her oxygen at home regularly. Her primary complaint is that she is having neck pain and feels foggy. She states this commonly happens after she has falls due to her Chiari malformation. Friend at bedside states patient's fogginess and slurred speech is common. He states he has seen her have better speech than this but also seen her have worse speech than this. Patient has poor strength in her bilateral upper extremities secondary to previous cervical problems including laminectomy. Last known normal around bedtime last night. She denies recent illness, no abdominal pain, nausea, vomiting, diarrhea. Related Data Home Medications ?Medication ?Instructions ?Recorded ?Confirmed clobetasol 0.05 % topical ointment 1 applic topical BID 06/20/24 07/14/24 clonidine HCl 0.1 mg tablet 0.1 mg PO DAILY 06/20/24 07/14/24 dexlansoprazole 60 mg 60 mg PO DAILY 06/20/24 07/14/24 capsule,biphase delayed release hydrocortisone 5 mg tablet 5 mg PO DAILY 06/20/24 07/14/24 levothyroxine 137 mcg tablet 137 mcg PO DAILY 06/20/24 07/14/24 (Synthroid) lidocaine 5 % topical patch 1 patch topical ONCE 06/20/24 07/14/24 methocarbamol 500 mg tablet 500 mg PO TIDP PRN Pain 06/20/24 07/14/24 mometasone-formoterol HFA 50 mcg-5 2 puff inhalation BID 06/20/24 07/14/24 mcg/actuation aerosol inhaler (Dulera) mycophenolate mofetil 500 mg tablet 500 mg PO BID 06/20/24 07/14/24 Previous Rx's ?Medication ?Instructions ?Recorded naloxone 4 mg/actuation nasal spray 4 mg intranasal Q2M PRN opioid 06/26/24 overdose #2 ea prednisone 50 mg tablet 50 mg PO DAILY 5 days #5 tabs 07/24/24 Allergies Allergy/AdvReac Type Severity Reaction Status Date / Time niacin [NIACIN] Allergy Severe S-DIFF. Verified 07/14/24 14:46 BREATHING Penicillins [PENICILLINS] Allergy Intermediate I-HIVES Verified 07/14/24 14:46 ondansetron Allergy Mild ABD PAIN Verified 07/14/24 14:46 [From ZOFRAN ( HYDROCHLORIDE)] clindamycin Allergy Verified 07/14/24 14:46 metoclopramide [From Reglan] Allergy NAUSEA / Verified 07/14/24 14:46 VOMITING sulfamethoxazole Allergy Verified 07/14/24 14:46 [From Bactrim] trimethoprim [From Bactrim] Allergy Verified 07/14/24 14:46 vancomycin Allergy Redness of Verified 07/14/24 14:46 Skin prochlorperazine AdvReac Severe Verified 07/14/24 14:46 [From Compazine] pregabalin AdvReac Verified 07/14/24 14:46 iodine contrast Allergy Mild Rash Uncoded 08/05/24 07:10 [facility] Disclaimer: The information contained in this section may have been updated after the patient was seen, as this information can be updated by other users. Medical History Dark urine Diastolic congestive heart failure Chest pain Nocturnal hypoxia History of 2019 novel coronavirus disease (COVID-19) Pulmonary fibrosis, unspecified Asthma Abdominal bloating Hypothyroid Pelvic pressure in female Implantable intrathecal infusion pump present Gastroparesis Follow-up exam Thickened endometrium Morbid obesity due to excess calories ILD (interstitial lung disease) Nocturnal hypoxemia History of 2019 novel coronavirus disease (COVID-19) Abnormal computerized axial tomography of chest History of environmental allergies Family history of asthma Dyspnea on exertion Moderate persistent asthma Family history of atrial fibrillation Palpitations HTN (hypertension) HLD (hyperlipidemia) Daytime somnolence Edema Surgical History History of foot surgery History of surgery Hx of fusion of cervical spine History of cervical discectomy H/O brain surgery H/O myomectomy Status post lumbar spine surgery for decompression of spinal cord History of tubal ligation History of esophagogastroduodenoscopy (EGD) History of section History of colonoscopy Hx of cholecystectomy History of cardiac cath Family History Grandmother COPD (chronic obstructive pulmonary disease) Asthma Mother COPD (chronic obstructive pulmonary disease) Asthma Grandfather Lung cancer Other Family history of breast cancer Social History Smoking Status: Never smoker second hand exposure: No alcohol intake: never substance use type: denies use current occupational status: other Travel in the last 8 weeks: None household members: other housing: house lives independently: Yes marital status: single current occupational exposures/hazards: No caffeine: Yes special bridgette needs: No agree to transfusion: No do you feel safe at home: Yes victim of physical abuse: No victim of emotional abuse: No victim of sexual abuse: No would you like helpful sources: No ROS Obtained: Yes All systems reviewed & no additional complaints except as documented Positive ROS per HPI Physical Exam General General appearance: alert, in no apparent distress and obese Comment: Chronically ill-appearing Head Head exam: atraumatic and normocephalic Eye Eye exam: Present PERRL and EOMI ENT ENT exam: Present mucous membranes moist Neck Neck exam: Present normal inspection and full ROM Chest Chest inspection: Present symmetric chest wall rise and tenderness (Mild, diffuse, patient reports this is her baseline pain, no findings of trauma on exam) Respiratory Respiratory exam: Present normal lung sounds bilaterally; Absent respiratory distress, wheezes or stridor Cardiovascular Cardiovascular exam: Present regular rate and normal rhythm Abdominal Exam Abdominal exam: Present soft; Absent distention, tenderness, guarding or rebound Extremities Exam Extremities exam: Present full ROM and other (Patient has aquiles appearing hands and feet); Absent edema Neurological Exam Neurological exam: Present alert, oriented X3, CN II-XII intact and motor sensory deficit (Patient has equal diffuse bilateral upper and lower extremity weakness but is able to hold her arms up against gravity, lift both legs equally off the bed, no pronator drift, no sensory deficits, normal [id number], unable to test [id number] due to limited range of motion/weakness, baseline) Psychiatric Psychiatric exam: Present normal affect and normal mood Skin Skin exam: Present warm and dry Medical Decision Making Medical Records Medical records reviewed: Yes I reviewed the patient's medical records. MR Comment: Patient was most recently evaluated in the ER for chronic back pain and prescribed prednisone. Most recent cardiology progress note was also reviewed demonstrating patient has had chest pain and pressure without activity, shortness of breath with activity, swelling in the hands, feet, legs, numbness in the hands, feet, arms, legs, and back. At that time blood pressure was acceptable according to cardiology and weight was down 15 pounds. Patient was prescribed clonidine 3 times daily as needed for hypertension. George Inquiry Pt receiving controlled substance: No Vital Signs: 08/05/24 03:18 08/05/24 03:36 08/05/24 04:01 Temperature 97.3 F L Temperature Source Oral Pulse Rate 71 65 Pulse Rate [Right] 74 Respiratory Rate 20 Blood Pressure 110/59 L 97/58 L Blood Pressure [Right Arm] 131/59 L Blood Pressure Mean Blood Pressure Mean [Right Arm] 83 02 Sat by Pulse Oximetry 98 98 98 Oxygen Delivery Method Nasal Cannula Oxygen Flow Rate (LPM) 3 08/05/24 05:00 08/05/24 05:30 08/05/24 06:30 Temperature Temperature Source Pulse Rate 65 65 Pulse Rate [Right] Respiratory Rate Blood Pressure 101/57 L 94/52 L 116/71 Blood Pressure [Right Arm] Blood Pressure Mean 86 Blood Pressure Mean [Right Arm] 02 Sat by Pulse Oximetry 100 100 Oxygen Delivery Method Oxygen Flow Rate (LPM) 08/05/24 07:34 Temperature 97.3 F L Temperature Source Pulse Rate 62 Pulse Rate [Right] Respiratory Rate 14 Blood Pressure 98/55 L Blood Pressure [Right Arm] Blood Pressure Mean Blood Pressure Mean [Right Arm] 02 Sat by Pulse Oximetry Oxygen Delivery Method Oxygen Flow Rate (LPM) Lab Data Lab Results 08/05/24 03:00: WBC 6.6, RBC 4.67, Hgb 13.7, Hct 45.3, MCV 97.1, MCH 29.4, MCHC 30.3 L, RDW 15.3, Plt Count 222, MPV 11.3 H, Neut % (Auto) 50.3, Lymph % (Auto) 40.5, [place] % (Auto) 6.3, Eos % (Auto) 2.1, Baso % (Auto) 0.8, Neut # (Auto) 3.3, Lymph # (Auto) 2.7, [place] # (Auto) 0.4, Eos # (Auto) 0.1, Baso # (Auto) 0.1, Sodium 139, Potassium 5.1, Chloride 101, Carbon Dioxide 36 H, Anion Gap 7.1, BUN 28 H, Creatinine 0.70, Estimated Creat Clear 161, Estimated GFR 87, Est GFR ( Amer) 105, Glucose 110 H, Calcium 9.7, Total Bilirubin 0.8, AST 71 H, ALT 49, Alkaline Phosphatase 50, Troponin I < 0.01, Total Protein 7.6, Albumin 4.2, Globulin 3.4 H, Albumin/Globulin Ratio 1.2 08/05/24 06:59: Urine Color Yellow, Urine Appearance Clear, Urine pH 6.0, Ur Specific [place] 1.010, Urine Protein Negative, Urine Glucose (UA) Negative, Urine Ketones Negative, Urine Blood 3+ A, Urine Nitrate Negative, Urine Bilirubin Negative, Urine Urobilinogen 0.2, Ur Leukocyte Esterase Negative, Urine RBC 5-10, Urine WBC None, Ur Squamous Epith Cells 3-5 08/05/24 03:00 08/05/24 03:00 Orders (Tests/Meds): ED MEDICATIONS Generic Name Dose Route Start Last Admin Trade Name Freq PRN Reason Stop Dose Admin Sodium Chloride 10 ml 08/05/24 06:15 08/05/24 06:17 Sodium Chloride 0.9% 10ml Syr (Rad Only) IV 09/04/24 06:14 10 ml NEEDED PRN Administration Maintain IV Site Discontinued Medications Generic Name Dose Route Start Last Admin Trade Name Freq PRN Reason Stop Dose Admin Acetaminophen 1,000 mg 08/05/24 03:54 08/05/24 04:02 Acetaminophen 1,000mg/100ml Vial IV 08/05/24 03:55 1,000 mg ONCE ONE Administration Diphenhydramine HCl 25 mg 08/05/24 04:29 08/05/24 05:05 Diphenhydramine 50mg/Ml Vial IV 08/05/24 04:30 25 mg ONCE ONE Administration Lactated Ringer's 1,000 mls @ 999 mls/hr 08/05/24 06:04 08/05/24 06:24 Lactated Ringer's 1000 Ml Bag IV 08/05/24 07:04 999 mls/hr .Q1H1M ONE Administration Iopamidol 80 ml 08/05/24 06:15 08/05/24 06:17 Iopamidol-370 (76%);100ml Bottle IV 08/05/24 06:16 80 ml ONCE ONE Administration Methylprednisolone Sodium Succinate 125 mg 08/05/24 04:29 08/05/24 05:06 Methylprednisolone Sod Succ 125mg Vial IV 08/05/24 04:30 125 mg ONCE ONE Administration Sodium Chloride 50 ml 08/05/24 06:15 08/05/24 06:17 0.9 % Sodium Chloride 50 Ml Vial IV 08/05/24 06:16 50 ml ONCE ONE Administration ORDERS Category Date Time Status CT angio head Stat Cat Scan 08/05/24 03:[address] angio neck Stat Cat Scan 08/05/24 03:[address] cervical spine wo con Stat Cat Scan 08/05/24 03:[address] head/brain wo con Stat Cat Scan 08/05/24 03:[address] lumbar spine wo con Stat Cat Scan 08/05/24 03:[address] thoracic spine wo con Stat Cat Scan 08/05/24 03:52 Completed CXR --portable [XR chest portable] Stat Exams 08/05/24 06:11 Completed CBC w/Auto Diff [Complete Blood Count Auto Diff] Stat Lab 08/05/24 03:00 Completed CMP [Comprehensive Metabolic Panel] Stat Lab 08/05/24 03:00 Completed Trop I [Troponin I] Stat Lab 08/05/24 03:00 Completed Troponin I Q3H Lab 08/05/24 09:15 Ordered Troponin I Q3H Lab 08/05/24 12:15 Ordered Urinalysis and Microscopic Stat Lab 08/05/24 06:59 Completed ECG Request Stat Y 08/05/24 06:11 Ordered HEART Score History (anamnesis): Slightly suspicious ECG: Normal Age: 45-65 years Risk factors: 1-2 risk factors Troponin: </= normal limit HEART Score: 2 Medical Decision Narrative: In summary, this 54-year-old female with multiple chronic medical conditions including history of Chiari malformation, interstitial lung disease, among many others which increase her overall morbidity and the amount of data to be reviewed presents to the emergency department today with main complaints of neck pain, back pain, generalized malaise, and reportedly shortness of breath per EMS after low mechanism fall nearly 24 hours ago. On initial evaluation patient is hemodynamically stable, afebrile, GCS 15, no localizing neurologic deficits, patient has weakness unable to perform [id number] secondary to baseline problems, no new neurodeficits, cardiopulmonary exam reassuring, abdominal exam benign. Differential diagnosis includes but is not limited to ACS, intracranial bleed, spinal injury, due to reports of difficulty speaking recently, CT angiography was ordered to evaluate for possible vascular lesion, UTI. Based on these concerns, I ordered broad workup including serum labs, urine studies, CT imaging, cardiac workup. ECG personally interpreted demonstrates normal sinus rhythm, rate 64, normal axis, normal [place] and QTc, no STEMI. Patient received IV fluids, Tylenol for treatment. Labs personally reviewed demonstrate no leukocytosis or anemia, normal platelet platelets, CMP with prerenal azotemia, patient is receiving IV fluids, otherwise nonactionable CMP, initial troponin undetectably low at less than 0.01. Since patient states her shortness of breath is truly at baseline, I do not believe serial troponins are necessary. She does not have chest pain. Urinalysis negative for findings of infection XR personally interpreted demonstrates no acute intrathoracic abnormality, see radiology read for final interpretation. CT imaging personally interpreted demonstrate no acute intracranial abnormality, no bleed, mass, or midline shift. No skull fracture. See radiology read for final interpretation. After receiving noncontrasted CT scans, patient reported to polysomnography technician that she has contrast allergy and broke out in a rash last time she received contrast. Patient received Solu-Medrol, Benadryl for premedication. All CT imaging was reviewed, there are no acute traumatic injuries, patient has multilevel degenerative changes in the spine as well as postoperative changes in the cervical spine. No findings of CVA. No vascular abnormality. C-collar was cleared by me. Patient is appropriate for discharge at this time. 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 He states they are going to continue following up with hospice since they recently started down the road since they understand she is having progression of her chronic diseases. Patient was given instructions on symptomatic management, follow up instructions, and return precautions for the emergency department. Patient indicated understanding and was discharged in stable condition. Critical Care Critical Care Time Critical Care Time: No
--- NOTE | 2024-08-05 06:11 | ECG_ITS ---
APPROVED REPORT Exam: Resting ECG HR:64 bpm ECG Measurements Heart Rate 64 AXES IL 189 P 55 QRSd 100 QRS 33 QT 418 T 33 QTc 428 Conclusion SINUS RHYTHM NORMAL ECG Electronically signed by : DAVINA AMIN, 08/05/2024 15:55:21
--- NOTE | 2024-08-05 06:11 | XR_ITS ---
PROCEDURE INFORMATION: Exam: XR Chest Exam date and time: 08/05/2024 6:16 AM Age: 54 years old Clinical indication: Shortness of breath; Additional info: SOA TECHNIQUE: Imaging protocol: Radiologic exam of the chest. Views: 1 view. COMPARISON: CR XR CHEST PORTABLE 07/22/2024 2:06 PM FINDINGS: Lungs: Hypoventilatory changes bilaterally. Pleural spaces: Unremarkable. No pleural effusion. No pneumothorax. Heart/Mediastinum: Unremarkable. No cardiomegaly. Bones/joints: Lower cervical spine hardware. IMPRESSION: Hypoventilatory changes bilaterally, no focal consolidation.
[2024-08-05] MEDS: SODIUM CHLORIDE 0.9% 10ML SYR (RAD ONLY) 10 ML IV (06:17)
[2024-08-05] MEDS: IOPAMIDOL-370 (76%);100ML BOTTLE 80 ML IV (06:17)
[2024-08-05] MEDS: 0.9 % SODIUM CHLORIDE 50 ML VIAL IV (06:17)
[2024-08-05] MEDS: LACTATED RINGERS 1000ML 1,000 ML 999 ML IV (06:24)
[2024-08-05 07:09] LABS: Microscopic, Urine URINE MICROSCOPIC (MICROSCOPIC)
[2024-08-05 07:10] LABS: Appearance,Urine CLEAR (Clear); Bilirubin,Urine Negative (Negative); Blood, Urine 3+ (Negative); Color,Urine YELLOW (Yellow); Glucose,Urine (UA) Negative (Negative); Ketones,Urine Negative (Negative); Leukocyte Esterase,Urine Negative (Negative); Nitrate,Urine Negative (Negative); Protein,Urine Negative (Negative); Urobilinogen,Urine 0.2 EU/dl (0.2)
[2024-08-05 07:50] LABS: Troponin I < 0.01 ng/ml (0.00-0.034)
== END 2024-08-05 07:55 | disposition home or self-care (01) ==
PROVIDERS: Emergency Provider Emergency Medicine
DX: R07.89 Other chest pain (principal); M54.2 Cervicalgia; Q07.00 Arnold-Chiari syndrome without spina bifida or hydrocephalus; I11.0 Hypertensive heart disease with heart failure; I50.30 Unspecified diastolic (congestive) heart failure; E78.5 Hyperlipidemia, unspecified; W06.XXXA Fall from bed, initial encounter
CPT/HCPCS: 70450; 70496; 70498; 71045; 72125; 72128; 72131; 80053; 81001; 84484; 85025; 93005; 96361; 96374; 96375; 99285; J0131; J1200; J2919; J7120; Q9967

== ENCOUNTER 2024-08-15 11:03 | Day surgery (SDC) | payer OTHER, SELFPAY ==
[2024-08-15 11:20] VITALS: BP 91/58; PULSE 77; RESP 16; TEMP 36.8; O2SAT 100; BMI 40.3
--- NOTE | 2024-08-15 11:38 | EXP.PAIN.PRO ---
Procedure Date: 08/15/24 Time: 11:30 Anesthesiologist:: Otf Sherman CRNA Complications:: None Pre-procedure Diagnosis:: Degenerative disc lumbar spine multilevels. Lumbar radiculopathy. Lumbar postlaminectomy syndrome. Degenerative disc cervical spine multilevels. Cervical radiculopathy. Cervical postlaminectomy syndrome. Chronic pain syndrome Post-procedure Diagnosis:: Same. Indications for Procedure:: Patient is a 54-year-old female comes our clinic today for intrathecal pain pump interrogation and refill. She is currently being managed with hydromorphone 20 mg/mL at 7.5 mg/day. Also bupivacaine 8 mg/mL at 3.0 mg/day. Patient requesting increase in intrathecal pain pump rate due to worsening back pain as well as bilateral hip and leg radicular symptoms. I think this is reasonable. Will increase her by 10%. She rates her pain 9/10. Procedure Details:: Details of the procedure explained the patient. The patient taken procedure and placed in the sitting position. The area of the pump is cleansed using chlorhexidine as a cleansing solution. The pump was interrogated. The pump was accessed with ease using a 22-gauge inch and half needle. 4 mL of solution was withdrawn and discarded appropriately. The pump was then filled with 20 cc of solution containing hydromorphone 20 mg/mL and bupivacaine 8 mg/mL. The 10% increase in intrathecal pain pump rate will result in hydromorphone 8.2500 mg/day. Bupivacaine 3.300 mg/day. Patient tolerated procedure without difficulty. No complications. Plan and Disposition:: Patient was discharged without incident.
[2024-08-15 11:46] VITALS: BP 98/68; PULSE 78; RESP 18; O2SAT 98
== END 2024-08-15 11:46 | disposition home or self-care (01) ==
PROVIDERS: PCP Family Medicine; Visit Provider Nurse Anesthetist, Certified Registered
DX: M51.16 Intervertebral disc disorders with radiculopathy, lumbar region (principal); M50.10 Cervical disc disorder with radiculopathy, unspecified cervical region; M96.1 Postlaminectomy syndrome, not elsewhere classified; G89.4 Chronic pain syndrome
CPT/HCPCS: 95991